=== PATIENT | male | born 1990 | race Caucasian/White ===

== ENCOUNTER → 2020-04-13 13:09 | Outpatient (BNVA) | payer OTHER, SELFPAY | PROVIDERS: PCP Family Medicine; Visit Provider Nurse Practitioner Gerontology ==

== ENCOUNTER 2020-04-16 13:53 | Emergency (ER) | payer OTHER, SELFPAY ==
[2020-04-16 14:01] VITALS: BP 113/74; PULSE 84; RESP 18; TEMP 36.6; O2SAT 98; BMI 23.3
[2020-04-16 14:08] LABS: Glucose, Whole Blood > 600 mg/dL (60-115)
--- NOTE | 2020-04-16 14:10 | ECG_ITS ---
Test Reason : WEAKNESS Blood Pressure : / mmHG Vent. Rate : 069 BPM Atrial Rate : 069 BPM P-R Int : 154 ms QRS Dur : 090 ms QT Int : 394 ms P-R-T Axes : 047 065 038 degrees QTc Int : 422 ms Normal sinus rhythm Minimal voltage criteria for LVH, may be normal variant Borderline ECG When compared with ECG of 26-NOV-2017 12:32, No significant change was found Referred By: Kimi Collier Electronically Signed By:Baldev Morales
--- NOTE | 2020-04-16 14:11 | XR_ITS ---
EXAMINATION: XR CHEST CLINICAL INFORMATION: Weakness COMPARISON: 03/08/2018 TECHNIQUE: 2 views of the chest were obtained. FINDINGS: Normal cardiomediastinal silhouette. Adequate expansion of lungs. No focal consolidation. No pleural effusion or pneumothorax. No acute osseous abnormality. XR/XR chest 2V IMPRESSION: No acute disease within the chest.
--- NOTE | 2020-04-16 14:17 | PC.NURSE ---
pt reports thirst and weakness. steady on feet. denies headache/blurred vision. skin pwd aware of plan of care. pt has hard time understanding insurance glitches. no insulin since yesterday.
--- NOTE | 2020-04-16 14:18 | ED.GENADULT ---
HPI - General Adult General Chief complaint: General Medical Stated complaint: high blood sugar Time Seen by Provider: 04/16/20 14:10 Source: patient Mode of arrival: ambulatory Limitations: no limitations History of Present Illness HPI narrative: 30 yo male with past medical h/o IDDM here with hyperglycemia. Patient tells me he went to [employer] [facility] his insulin yesterday and he used his last dose in the morning and was told his insurance was . Therefore, he tells me he did not have money to [employer] maker the new vial and sensors. Today has malaise, nausea. No abdominal pain, vomiting, fevers, chills, cough, shortness of breath. He tells me prior to using his last dose of insulin he felt well and he has not felt sick lately. Onset (ago): day(s) Related Data Previous Rx's Medication Instructions Recorded blood sugar diagnostic #125 ea 04/13/20 flash glucose sensor 1 ea TOPICAL Q2W #2 ea 04/13/20 insulin glargine 100 unit/mL (3 24 unit SUBCUT QPM #15 ml 04/13/20 mL) subcutaneous pen insulin lispro 100 unit/mL 6 - 12 unit SUBCUT QID #15 ml 04/13/20 subcutaneous pen Allergies Allergy/AdvReac Type Severity Reaction Status Date / Time No Known Allergies Allergy Unverified 04/13/20 14:09 [No Known Allergies*] Review of Systems Review of Systems: Yes all other systems are reviewed and are negative Constitutional: Constitutional: Reports no additional constitutional complaints, Denies body ache(s), Denies chills, Denies fever(s), Denies headache(s), Reports malaise and Denies weakness Eyes: Eyes: Reports no additional eye complaints and Denies change in vision ENT: Reports system reviewed and no additional complaints, except as documented, Denies dizziness, Denies headache(s), Denies nasal congestion, Denies nasal discharge and Denies neck pain Cardiovascular: Cardiovascular: Reports no additional cardiovascular complaints, Denies chest pain, Denies leg edema and Denies dyspnea Respiratory: Respiratory: Reports no additional respiratory complaints, Denies cough and Denies dyspnea Gastrointestinal: Gastrointestinal: Reports no additional gastrointestinal complaints, Denies abdominal pain, Denies diarrhea, Reports nausea and Denies vomiting Genitourinary: Genitourinary: Denies urinary incontinence Musculoskeletal: Musculoskeletal: Reports no additional musculoskeletal complaints, Denies back pain, Denies arthralgias, Denies joint swelling, Denies neck pain, Denies numbness and Denies tingling Integumentary/Breasts: Skin/Breast: Reports system reviewed and no additional complaints, except as docu and Denies rash Neurologic: Reports system reviewed and no additional complaints, except as documented, Denies Abnormal speech present, Denies dizziness, Denies headache(s), Denies numbness, Denies tingling and Denies weakness PMFSH Past Medical History Attestation statement: The following information was validated with the patient. Source: old records reviewed and nursing notes reviewed Medical History Dental decay Diabetes mellitus type 1, uncontrolled Hyperlipidemia LDL goal <100 Family History Family History Maternal Grandmother Diabetes, type I Social History Social History Household Members: None Alcohol intake: never Smoking Status: Current some day smoker Smoked in Last 30 Days: No Use of substances other than those prescribed or required for medical reasons: No Advance Directives: No Advance Directives Information Provided: No Physical Exam Vital Signs: Vital Signs: Last Vital Signs Temp 98 F 04/16/20 14:01 Pulse 82 04/16/20 18:00 Resp 18 04/16/20 18:00 BP 133/84 04/16/20 18:00 Pulse Ox 100 04/16/20 18:00 Body Mass Index 23.3 Const: General: cooperative, healthy appearing, comfortable and no acute distress Orientation/consciousness: patient oriented x3 Limitations: no limitations HENMT: Head: Yes normal to inspection Ears: hearing grossly normal bilaterally General nose exam: Normal external nose present Face and sinus: Yes normal facial exam Mouth: Normal oral and palatal mucosa present Throat: Yes posterior oropharynx normal Eyes: General: appearance normal, both eyes and all related structures Pupils: Equal, round and reactive pupils present Neck: Neck: Yes normal visual inspection Chest: Chest palpation & inspection: normal inspection of the chest Resp: Effort & Inspection: normal respiratory effort Auscultation: clear to auscultation bilaterally Cardio: Rate: regular rate Rhythm: regular rhythm Peripheral pulses: Peripheral pulses 2+ throughout GI: Inspection: Yes normal to inspection Palpation (GI): Soft to palpation and nontender Auscultation: normal bowel sounds Back/Spine/Pelvis: Thoracic/Lumbar Spine: thoracic and lumbar spine normal to inspection Skin: General skin exam: no rashes or lesions noted Neuro: General: patient oriented x3, no focal motor deficits and normal sensation to monofilament Cranial nerves: Yes Equal, round and reactive pupils present Cognition (Neuro): normal cognition Speech: No Abnormal speech present Gait exam (Neuro): Normal gait present Motor exam (neuro): 5/5 motor strength present throughout Extrem: General: Yes normal to inspection Course Course Course Narrative: 30 yo male with glucometer reading high today after running out of insulin yesterday. Will need labs including acetone, VBG, UA, EKG. Give NSB. Hold on insulin until labs returned. 163-Labs show BG 948 with no gap or acidosis. Corrected sodium 142. Renal function at baseline. Acetone negative. VBG more c/o with respiratory acidosis which is unexpected. D/w with Dr Hall who recommended 10 units iv insulin, gtt at 10 units/hr, NSB x2 then LR at 250ml/hr. Re-check BMP and VBG at 1900. Pt and nursing aware of plan of care. 2029-Called and spoke to pharmacist at [facility]. Filled lispro and lantus over the phone. Insurance is active per pharmacist, confirmed with registration. Patient tells me he is able to go there tonight to pick this up and has all other additional supplies at home that he needs. Pending repeat labs. 2044-Repeat labs look much improved with a BG of 199 now. Repeat VBG unfortunately was not re-drawn and patient declined to have this re-drawn. He is alert and oriented x3, stable vital signs. mildly hypercarbic on initial VBG which may be secondary to tox use. Patient tox screen positive for cocaine and marijuana. Instructed patient to discontinue use of this and explained why. Reviewed worrisome signs/symptoms with patient and when to return to ED. Comfortable with discharge home. Medical Decision Making Medical Records Medical records reviewed: Yes I reviewed the patient's medical records. Lab Data Lab results reviewed: Yes I reviewed the patient's lab results. Result diagrams: 04/16/20 14:23 04/16/20 20:20 Labs: Lab Results 04/16/20 04/16/20 04/16/20 Range/Units 14:04 14:23 14:23 WBC 7.6 (4.8-10.8) X10*3/uL RBC 5.64 (4.60-5.80) X10*6/uL Hgb 17.0 (14.0-18.0) g/dl Hct 52.2 H (42-52) % MCV 92.6 (80-98) fL MCH 30.1 (27.0-33.0) pg MCHC 32.6 (31.0-36.0) g/dl RDW 12.4 (11.0-16.0) % Plt Count 309 (160-400) X10*3/uL MPV 12.0 (9.4-12.4) fL Immature Gran % (Auto) 0.4 (0.0-0.4) % Neut % (Auto) 77.9 H (45-73) % Lymph % (Auto) 15.8 L (20-40) % Meagher % (Auto) 4.6 (2-11) % Eos % (Auto) 0.5 (0-4) % Baso % (Auto) 0.8 (0-2) % Lymph # (Auto) 1.2 (1.2-4.9) X10*3/uL Meagher # (Auto) 0.4 (0.1-1.2) X10*3/uL Eos # (Auto) 0.0 (0.0-0.4) X10*3/uL Baso # (Auto) 0.1 (0.0-0.2) X10*3/uL Abs Immat Gran (auto) 0.03 (0.00-0.03) X10*3/uL Absolute Neuts (auto) 5.9 (2.0-8.3) X10*3/uL Absolute Nucleated RBC 0.000 (0.0-0.012) X10*3/uL Nucleated RBC % (auto) 0.0 (0.0-0.2) /100WBC VBG pH (7.32-7.43) VBG pCO2 mmHg VBG pO2 mmHg VBG HCO3 mmol/L VBG O2 Saturation % VBG Base Excess mmol/L Sodium 128 L (135-145) mmol/L Potassium 4.8 (3.3-5.1) mmol/l Chloride 84 L (96-108) mmol/L Carbon Dioxide 27 (22-29) mmol/L Anion Gap 22 H (12-20) BUN 11 (9-16) mg/dL Creatinine 1.80 H (0.5-1.4) mg/dL Estim Creat Clear Calc 52.6 Estimated GFR 45 POC Glucose > 600 H* (60-115) mg/dL Random Glucose 948 H* (60-115) mg/dL Calcium 10.4 H (8.4-10.2) mg/dL Magnesium 2.3 (1.6-2.6) mg/dL Total Bilirubin 1.0 (0.0-1.0) mg/dL Direct Bilirubin 0.3 (0.0-0.5) mg/dL AST 16 (5-37) U/L ALT 29 (0-40) U/L Alkaline Phosphatase 153 H (39-117) U/L Troponin I High Sens (<3.5-35.0) ng/L Total Protein 8.5 H (6.5-8.0) g/dL Albumin 4.9 (3.5-5.0) g/dL Urine Color Urine Appearance Urine pH (5.0-8.0) Ur Specific [place] (1.005-1.025) Urine Protein (NEG-TRACE) MG/DL Urine Glucose (UA) (NEG) MG/DL Urine Ketones (NEG) MG/DL Urine Blood (NEG) Urine Nitrite (NEG) Ur Leukocyte Esterase (NEG) Urine RBC (0) /HPF Urine WBC (0-4) /HPF Ur Squamous Epith Cells /LPF Urine Bacteria /LPF Urine Yeast /HPF Urine Opiates Screen (Not Detect) Ur Barbiturates Screen (Not Detect) Ur Phencyclidine Scrn (Not Detect) Ur Amphetamines Screen (Not Detect) U Benzodiazepines Scrn (Not Detect) Urine Cocaine Screen (Not Detect) U Marijuana (THC) Screen (Not Detect) Acetone, Qual Negative (Negative) COVID-19 (DORINA) (Negative) COVID-19 Clin Com 04/16/20 04/16/20 04/16/20 Range/Units 14:23 14:23 16:10 WBC (4.8-10.8) X10*3/uL RBC (4.60-5.80) X10*6/uL Hgb (14.0-18.0) g/dl Hct (42-52) % MCV (80-98) fL MCH (27.0-33.0) pg MCHC (31.0-36.0) g/dl RDW (11.0-16.0) % Plt Count (160-400) X10*3/uL MPV (9.4-12.4) fL Immature Gran % (Auto) (0.0-0.4) % Neut % (Auto) (45-73) % Lymph % (Auto) (20-40) % Meagher % (Auto) (2-11) % Eos % (Auto) (0-4) % Baso % (Auto) (0-2) % Lymph # (Auto) (1.2-4.9) X10*3/uL Meagher # (Auto) (0.1-1.2) X10*3/uL Eos # (Auto) (0.0-0.4) X10*3/uL Baso # (Auto) (0.0-0.2) X10*3/uL Abs Immat Gran (auto) (0.00-0.03) X10*3/uL Absolute Neuts (auto) (2.0-8.3) X10*3/uL Absolute Nucleated RBC (0.0-0.012) X10*3/uL Nucleated RBC % (auto) (0.0-0.2) /100WBC VBG pH 7.26 L (7.32-7.43) VBG pCO2 70 mmHg VBG pO2 34 mmHg VBG HCO3 32 mmol/L VBG O2 Saturation 51.0 % VBG Base Excess 2.3 mmol/L Sodium (135-145) mmol/L Potassium (3.3-5.1) mmol/l Chloride (96-108) mmol/L Carbon Dioxide (22-29) mmol/L Anion Gap (12-20) BUN (9-16) mg/dL Creatinine (0.5-1.4) mg/dL Estim Creat Clear Calc Estimated GFR POC Glucose (60-115) mg/dL Random Glucose (60-115) mg/dL Calcium (8.4-10.2) mg/dL Magnesium (1.6-2.6) mg/dL Total Bilirubin (0.0-1.0) mg/dL Direct Bilirubin (0.0-0.5) mg/dL AST (5-37) U/L ALT (0-40) U/L Alkaline Phosphatase (39-117) U/L Troponin I High Sens < 3.5 (<3.5-35.0) ng/L Total Protein (6.5-8.0) g/dL Albumin (3.5-5.0) g/dL Urine Color YELLOW Urine Appearance CLEAR Urine pH 5.5 (5.0-8.0) Ur Specific [place] <= 1.005 (1.005-1.025) Urine Protein NEG (NEG-TRACE) MG/DL Urine Glucose (UA) >=1000 H (NEG) MG/DL Urine Ketones 5 (NEG) MG/DL Urine Blood NEG (NEG) Urine Nitrite NEG (NEG) Ur Leukocyte Esterase NEG (NEG) Urine RBC 0-2 (0) /HPF Urine WBC 0-2 (0-4) /HPF Ur Squamous Epith Cells TRACE /LPF Urine Bacteria TRACE /LPF Urine Yeast TRACE /HPF Urine Opiates Screen (Not Detect) Ur Barbiturates Screen (Not Detect) Ur Phencyclidine Scrn (Not Detect) Ur Amphetamines Screen (Not Detect) U Benzodiazepines Scrn (Not Detect) Urine Cocaine Screen (Not Detect) U Marijuana (THC) Screen (Not Detect) Acetone, Qual (Negative) COVID-19 (DORINA) (Negative) COVID-19 Clin Com 04/16/20 04/16/20 04/16/20 Range/Units 16:15 17:54 18:21 WBC (4.8-10.8) X10*3/uL RBC (4.60-5.80) X10*6/uL Hgb (14.0-18.0) g/dl Hct (42-52) % MCV (80-98) fL MCH (27.0-33.0) pg MCHC (31.0-36.0) g/dl RDW (11.0-16.0) % Plt Count (160-400) X10*3/uL MPV (9.4-12.4) fL Immature Gran % (Auto) (0.0-0.4) % Neut % (Auto) (45-73) % Lymph % (Auto) (20-40) % Meagher % (Auto) (2-11) % Eos % (Auto) (0-4) % Baso % (Auto) (0-2) % Lymph # (Auto) (1.2-4.9) X10*3/uL [place] # (Auto) (0.1-1.2) X10*3/uL Eos # (Auto) (0.0-0.4) X10*3/uL Baso # (Auto) (0.0-0.2) X10*3/uL Abs Immat Gran (auto) (0.00-0.03) X10*3/uL Absolute Neuts (auto) (2.0-8.3) X10*3/uL Absolute Nucleated RBC (0.0-0.012) X10*3/uL Nucleated RBC % (auto) (0.0-0.2) /100WBC VBG pH (7.32-7.43) VBG pCO2 mmHg VBG pO2 mmHg VBG HCO3 mmol/L VBG O2 Saturation % VBG Base Excess mmol/L Sodium (135-145) mmol/L Potassium (3.3-5.1) mmol/l Chloride (96-108) mmol/L Carbon Dioxide (22-29) mmol/L Anion Gap (12-20) BUN (9-16) mg/dL Creatinine (0.5-1.4) mg/dL Estim Creat Clear Calc Estimated GFR POC Glucose 352 H* 287 H (60-115) mg/dL Random Glucose (60-115) mg/dL Calcium (8.4-10.2) mg/dL Magnesium (1.6-2.6) mg/dL Total Bilirubin (0.0-1.0) mg/dL Direct Bilirubin (0.0-0.5) mg/dL AST (5-37) U/L ALT (0-40) U/L Alkaline Phosphatase (39-117) U/L Troponin I High Sens (<3.5-35.0) ng/L Total Protein (6.5-8.0) g/dL Albumin (3.5-5.0) g/dL Urine Color Urine Appearance Urine pH (5.0-8.0) Ur Specific [place] (1.005-1.025) Urine Protein (NEG-TRACE) MG/DL Urine Glucose (UA) (NEG) MG/DL Urine Ketones (NEG) MG/DL Urine Blood (NEG) Urine Nitrite (NEG) Ur Leukocyte Esterase (NEG) Urine RBC (0) /HPF Urine WBC (0-4) /HPF Ur Squamous Epith Cells /LPF Urine Bacteria /LPF Urine Yeast /HPF Urine Opiates Screen Not Detected (Not Detect) Ur Barbiturates Screen Not Detected (Not Detect) Ur Phencyclidine Scrn Not Detected (Not Detect) Ur Amphetamines Screen Not Detected (Not Detect) U Benzodiazepines Scrn Not Detected (Not Detect) Urine Cocaine Screen POSITIVE H (Not Detect) U Marijuana (THC) Screen POSITIVE H (Not Detect) Acetone, Qual (Negative) COVID-19 (DORINA) (Negative) COVID-19 Clin Com 04/16/20 04/16/20 04/16/20 Range/Units 19:42 19:42 20:20 WBC (4.8-10.8) X10*3/uL RBC (4.60-5.80) X10*6/uL Hgb (14.0-18.0) g/dl Hct (42-52) % MCV (80-98) fL MCH (27.0-33.0) pg MCHC (31.0-36.0) g/dl RDW (11.0-16.0) % Plt Count (160-400) X10*3/uL MPV (9.4-12.4) fL Immature Gran % (Auto) (0.0-0.4) % Neut % (Auto) (45-73) % Lymph % (Auto) (20-40) % Meagher % (Auto) (2-11) % Eos % (Auto) (0-4) % Baso % (Auto) (0-2) % Lymph # (Auto) (1.2-4.9) X10*3/uL [place] # (Auto) (0.1-1.2) X10*3/uL Eos # (Auto) (0.0-0.4) X10*3/uL Baso # (Auto) (0.0-0.2) X10*3/uL Abs Immat Gran (auto) (0.00-0.03) X10*3/uL Absolute Neuts (auto) (2.0-8.3) X10*3/uL Absolute Nucleated RBC (0.0-0.012) X10*3/uL Nucleated RBC % (auto) (0.0-0.2) /100WBC VBG pH (7.32-7.43) VBG pCO2 mmHg VBG pO2 mmHg VBG HCO3 mmol/L VBG O2 Saturation % VBG Base Excess mmol/L Sodium Cancelled 141 (135-145) mmol/L Potassium Cancelled 4.1 (3.3-5.1) mmol/l Chloride Cancelled 100 (96-108) mmol/L Carbon Dioxide Cancelled 29 (22-29) mmol/L Anion Gap Cancelled 16 (12-20) BUN Cancelled 9 (9-16) mg/dL Creatinine Cancelled 1.02 (0.5-1.4) mg/dL Estim Creat Clear Calc Cancelled 92.9 Estimated GFR Cancelled > 60 POC Glucose (60-115) mg/dL Random Glucose Cancelled 199 H D (60-115) mg/dL Calcium Cancelled 9.5 D (8.4-10.2) mg/dL Magnesium (1.6-2.6) mg/dL Total Bilirubin (0.0-1.0) mg/dL Direct Bilirubin (0.0-0.5) mg/dL AST (5-37) U/L ALT (0-40) U/L Alkaline Phosphatase (39-117) U/L Troponin I High Sens (<3.5-35.0) ng/L Total Protein (6.5-8.0) g/dL Albumin (3.5-5.0) g/dL Urine Color Urine Appearance Urine pH (5.0-8.0) Ur Specific [place] (1.005-1.025) Urine Protein (NEG-TRACE) MG/DL Urine Glucose (UA) (NEG) MG/DL Urine Ketones (NEG) MG/DL Urine Blood (NEG) Urine Nitrite (NEG) Ur Leukocyte Esterase (NEG) Urine RBC (0) /HPF Urine WBC (0-4) /HPF Ur Squamous Epith Cells /LPF Urine Bacteria /LPF Urine Yeast /HPF Urine Opiates Screen (Not Detect) Ur Barbiturates Screen (Not Detect) Ur Phencyclidine Scrn (Not Detect) Ur Amphetamines Screen (Not Detect) U Benzodiazepines Scrn (Not Detect) Urine Cocaine Screen (Not Detect) U Marijuana (THC) Screen (Not Detect) Acetone, Qual (Negative) COVID-19 (DORINA) Negative (Negative) COVID-19 Clin Com See Note Imaging Data Chest x-ray: Attestation: I personally reviewed and interpreted this imaging study as follows: Radiologist's impression: [address] [id number] ReportSigned Patient: Keira WeinerMR#: [id number]: [id number]:[id number]/Sex: 30 / MADM Date: 04/16/20Loc: EDAttending Dr: Ordering Physician: GINGER SR NP Date of Service: 04/16/20 Procedure(s): XR chest 2V Accession Number(s): [id number] cc: GINGER SR NP~ EXAMINATION: XR CHEST CLINICAL INFORMATION: Weakness COMPARISON: 03/08/2018 TECHNIQUE: 2 views of the chest were obtained. FINDINGS: Normal cardiomediastinal silhouette. Adequate expansion of lungs. No focal consolidation. No pleural effusion or pneumothorax. No acute osseous abnormality. XR/XR chest 2V IMPRESSION: No acute disease within the chest. ECG Data Attestation: I personally reviewed and interpreted this ECG as follows: Interpretation: NSR with rate 69, normal pr, normal qrs, normal wt, t wave inversions v1, v3 Discharge Plan Discharge Clinical Impression: Diabetes mellitus type 1, uncontrolled Qualifiers: Glycemic state: with hyperglycemia Qualified Code(s): E10.65 - Type 1 diabetes mellitus with hyperglycemia Patient Disposition: Home, Self-Care Instructions: Diabetes Type 1: Management (ED) Additional Instructions: I have called in your refills to [facility] [place] Prescriptions: No Action Lantus Solostar U-100 Insulin 100 unit/mL (3 mL) insulin pen 24 unit subcut QPM Qty: 15 RF: 0 insulin lispro [Humalog KwikPen Insulin] 100 unit/mL insulin pen 6 - 12 unit subcut QID Qty: 15 RF: 0 FreeStyle Eusebio 14 Day Sensor Kit 1 ea topical Q2W Qty: 2 RF: 11 (DME) FreeStyle Precision Kamran Strips Strip See Rx Instructions .ROUTE .MEDSUPPLY Qty: 125 RF: 6
[2020-04-16] MEDS: 0.9 % Sodium Chloride 1,000 ML 999 ML IV ×2 (14:24→16:41)
[2020-04-16 14:37] LABS: MANUAL DIFF FLAG NO
[2020-04-16 14:40] LABS: Basophils Absolute Auto 0.1 X10*3/uL (0.0-0.2); Basophils Percent Auto 0.8 % (0-2); Eosinophils Percent Auto 0.5 % (0-4); Hematocrit 52.2 % (42-52); Imm Gran Abs Auto 0.03 X10*3/uL (0.00-0.03); Imm Gran Pct Auto 0.4 % (0.0-0.4); Lymphocytes Absolute Auto 1.2 X10*3/uL (1.2-4.9); Lymphocytes Percent Auto 15.8 % (20-40); Mean Corpuscular HGB Conc 32.6 g/dl (31.0-36.0); Mean Corpuscular Hemoglobin 30.1 pg (27.0-33.0); Mean Corpuscular Volume 92.6 fL (80-98); Monocytes Absolute Auto 0.4 X10*3/uL (0.1-1.2); Monocytes Percent Auto 4.6 % (2-11); Neutrophils Absolute Auto 5.9 X10*3/uL (2.0-8.3); Neutrophils Percent Auto 77.9 % (45-73); Platelet Count 309 X10*3/uL (160-400); Red Blood Count 5.64 X10*6/uL (4.60-5.80); Red Cell Distribution Width 12.4 % (11.0-16.0); White Blood Count 7.6 X10*3/uL (4.8-10.8)
[2020-04-16 14:42] LABS: HCO3 VBG 32 mmol/L; PCO2 VBG 70 mmHg; PO2 VBG 34 mmHg; pH VBG 7.26 (7.32-7.43)
[2020-04-16 14:43] LABS: Base Excess VBG 2.3 mmol/L
[2020-04-16 15:15] LABS: Troponin-I High Sensitivity < 3.5 ng/L (<3.5-35.0)
[2020-04-16 16:10] VITALS: BP 123/86; PULSE 81; RESP 14; O2SAT 99
[2020-04-16 16:20] LABS: Alanine Aminotransferase 29 U/L (0-40); Albumin Level 4.9 g/dL (3.5-5.0); Alkaline Phosphatase 153 U/L (39-117); Anion Gap 22 (12-20); Aspartate Amino Transferase 16 U/L (5-37); Bilirubin Direct 0.3 mg/dL (0.0-0.5); Blood Urea Nitrogen 11 mg/dL (9-16); Calcium 10.4 mg/dL (8.4-10.2); Carbon Dioxide 27 mmol/L (22-29); Chloride 84 mmol/L (96-108); Creatinine Clr Calc Pharmacy 52.6; Estimated Glomerular Filt Rate 45; Glucose Random 948 mg/dL (60-115); Magnesium 2.3 mg/dL (1.6-2.6); Potassium 4.8 mmol/l (3.3-5.1); Sodium 128 mmol/L (135-145); Total Protein 8.5 g/dL (6.5-8.0)
[2020-04-16 16:22] LABS: Glucose Urine UA >=1000 MG/DL (NEG); Leukocyte Esterase Urine NEG (NEG); Nitrite Urine NEG (NEG); PH 5.5 (5.0-8.0); Specific Gravity - Urine <= 1.005 (1.005-1.025); Urine Blood NEG (NEG); Urine Ketones 5 MG/DL (NEG); Urine Protein NEG (NEG-TRACE)
[2020-04-16 16:40] LABS: Appearance Urine CLEAR; Bacteria Urine TRACE /LPF; Color Urine YELLOW; RBC Urine 0-2 /HPF (0); Squamous Epithelial Cell Urine TRACE /LPF; WBC Urine 0-2 /HPF (0-4)
[2020-04-16] MEDS: Insulin Regular, Human 100 UNIT/ML 3 ML VIAL 10 UNIT IVPUSH (16:41)
[2020-04-16] MEDS: Insulin Regular/NS 100 UNIT/100 ML PLAST..BAG 10 UNIT IVCONT (16:45)
[2020-04-16 17:03] VITALS: BP 151/90; PULSE 72; RESP 18; O2SAT 99
[2020-04-16 17:46] LABS: Acetone, serum QL Negative (Negative)
[2020-04-16 17:57] LABS: Glucose, Whole Blood 352 mg/dL (60-115)
[2020-04-16 18:00] VITALS: BP 133/84; PULSE 82; RESP 18; O2SAT 100
[2020-04-16 18:10] LABS: Amphetamine Screen Urine Not Detected (Not Detect); Barbiturates, Urine Not Detected (Not Detect); Benzodiazepines Screen Urine Not Detected (Not Detect); Cannabinoid Screen Urine POSITIVE (Not Detect); Cocaine Screen Urine POSITIVE (Not Detect); Opiate Screen Urine Not Detected (Not Detect); Phencyclidine Screen Urine Not Detected (Not Detect)
--- NOTE | 2020-04-16 18:10 | PC.NURSE ---
DENIES THIRST. FEELS BETTER. PT HAS DIFF THINKING THROUGH HOW TO MANAGE INSURANCE PROBLEMS. I THINK I'LL BORROW INSULIN FROM MY FATHER
[2020-04-16] MEDS: Lactated Ringers 1,000 ML 250 ML IVCONT (18:11)
[2020-04-16 18:25] LABS: Glucose, Whole Blood 287 mg/dL (60-115)
[2020-04-16 20:00] LABS: COVID-19 Test Negative (Negative)
[2020-04-16 20:41] LABS: Sodium 141 mmol/L (135-145)
[2020-04-16 20:42] LABS: Anion Gap 16 (12-20); Blood Urea Nitrogen 9 mg/dL (9-16); Calcium 9.5 mg/dL (8.4-10.2); Carbon Dioxide 29 mmol/L (22-29); Chloride 100 mmol/L (96-108); Creatinine Clr Calc Pharmacy 92.9; Estimated Glomerular Filt Rate > 60; Glucose Random 199 mg/dL (60-115); Potassium 4.1 mmol/l (3.3-5.1)
== END 2020-04-16 21:10 | disposition home or self-care (01) ==
PROVIDERS: Nurse Practitioner Family; Emergency Provider Internal Medicine
DX: E10.65 Type 1 diabetes mellitus with hyperglycemia (principal); Z79.899 Other long term (current) drug therapy; F17.200 Nicotine dependence, unspecified, uncomplicated; Z20.822 Contact with and (suspected) exposure to COVID-19; Z79.4 Long term (current) use of insulin; Z71.6 Tobacco abuse counseling
CPT/HCPCS: 36415; 71046; 80048; 80076; 80307; 81001; 82009; 82803; 82947; 83735; 84484; 85025; 87635; 93005; 96361; 96365; 96366; 96375; 99284

== ENCOUNTER → 2020-05-03 08:53 | Outpatient (BNVA) | payer OTHER, SELFPAY | PROVIDERS: Visit Provider Nurse Practitioner Gerontology ==

== ENCOUNTER 2020-06-01 12:26 | Outpatient (REF) | payer OTHER, SELFPAY ==
[2020-06-01 14:07] LABS: Estimated Average Glucose 303 mg/dL; Hemoglobin A1c % 12.2 %
[2020-06-01 14:26] LABS: Creatinine Urine 53.28 mg/dL; Microalbum/Creatinine Ratio Ur 13.1 ug/mg cr
[2020-06-01 14:33] LABS: Alanine Aminotransferase 16 U/L (0-40); Alkaline Phosphatase 107 U/L (39-117); Anion Gap 12 (12-20); Aspartate Amino Transferase 15 U/L (5-37); Bilirubin Total 0.5 mg/dL (0.0-1.0); Blood Urea Nitrogen 9 mg/dL (9-16); Calcium 9.3 mg/dL (8.4-10.2); Carbon Dioxide 27 mmol/L (22-29); Chloride 102 mmol/L (96-108); Cholesterol 227 mg/dL; Estimated Glomerular Filt Rate > 60; Glucose Fasting 371 mg/dL (60-99); HDL Cholesterol 71 mg/dL; LDL Cholesterol Calculated 134 mg/dl; Potassium 4.8 mmol/L (3.3-5.1); Sodium 136 mmol/L (135-145); Triglycerides 112 mg/dL
[2020-06-02 08:47] LABS: LDL Cholesterol Direct 134 mg/dL (<100)
== END 2020-06-01 12:27 | disposition home or self-care (01) ==
LOC: HO.10HDL 12:26
PROVIDERS: Visit Provider Nurse Practitioner Gerontology
DX: E10.65 Type 1 diabetes mellitus with hyperglycemia (principal)
CPT/HCPCS: 36415; 80053; 80061; 82043; 83036; 83721

== ENCOUNTER → 2020-06-06 11:25 | Outpatient (BNVA) | payer OTHER, SELFPAY | PROVIDERS: PCP Family Medicine; Visit Provider Nurse Practitioner Gerontology | DX: E10.65 Type 1 diabetes mellitus with hyperglycemia (principal); Z71.3 Dietary counseling and surveillance; Z79.4 Long term (current) use of insulin | CPT/HCPCS: 82947; 99212 ==

== ENCOUNTER → 2020-12-06 14:56 | Outpatient (BNVA) | payer OTHER, SELFPAY | PROVIDERS: PCP Physician Assistant; Visit Provider Nurse Practitioner Gerontology | DX: E10.65 Type 1 diabetes mellitus with hyperglycemia (principal); E78.5 Hyperlipidemia, unspecified; K02.9 Dental caries, unspecified; F14.11 Cocaine abuse, in remission; F10.21 Alcohol dependence, in remission; Z91.19 Patient's noncompliance with other medical treatment and regimen | CPT/HCPCS: 82947; 99212 ==

== ENCOUNTER 2021-05-15 23:20 | Emergency (ER) | payer OTHER, SELFPAY ==
[2021-05-15 23:36] VITALS: BP 117/72; PULSE 84; RESP 18; TEMP 36.8; O2SAT 98; O2SAT 99; BMI 20.2
--- NOTE | 2021-05-16 00:14 | ED.GENADULT ---
HPI - General Adult General Chief complaint: General Medical Stated complaint: Hyperglycemia Time Seen by Provider: 05/15/21 23:33 Source: patient Mode of arrival: EMS History of Present Illness HPI narrative: 31-year-old male brought in by EMS from work after he was noted to have fallen asleep while waiting for ride. Patient states that he woke up to find EMS surrounding him and he was informed that he ?had to take that ambulance to the hospital?. Currently he does not wish to be treated in NE former fashion stating that he just wants to go home and take his own insulin. He currently denies any fever, chills, nausea, vomiting, abdominal pain. Related Data Previous Rx's Medication Instructions Recorded blood sugar diagnostic (FreeStyle #125 ea 05/03/20 Precision Kamran Strips) insulin glargine 100 unit/mL (3 24 unit (0.24 mL) SUBCUT QPM #15 ml 05/03/20 mL) subcutaneous pen (Lantus Solostar U-100 Insulin) Humalog KwikPen Insulin 100 6 - 12 unit (0.06 - 0.12 mL) 11/15/20 unit/mL subcutaneous (insulin SUBCUT QID #15 ml NS lispro) flash glucose scanning reader #1 ea 11/15/20 (FreeStyle Eusebio 2 [place]) flash glucose sensor (FreeStyle #2 ea 11/15/20 Eusebio 2 Sensor) atorvastatin 20 mg tablet 20 mg PO BEDTIME #30 tab 12/06/20 glucagon 3 mg/actuation nasal 3 mg INTRANASAL ONCE 30 Days #2 ea 12/06/20 spray (Baqsimi) Allergies Allergy/AdvReac Type Severity Reaction Status Date / Time No Known Allergies Allergy Unverified 12/06/20 15:31 [No Known Allergies*] Review of Systems Review of Systems: Pertinent positives and negatives as stated in the HPI and 10 point review of systems is otherwise negative. [facility] Past Medical History Source: nursing notes reviewed Medical History Dental decay Diabetes mellitus type 1, uncontrolled Hyperlipidemia LDL goal <100 Noncompliance Surgical History No history of previous surgery Family History Family History Maternal Grandmother Diabetes, type I Social History Social History Household Members: None Alcohol intake: former Patient Tobacco Use Status: Current someday Tobacco user Substance Use Type: Crack/Cocaine and Marijuana Physical Exam ED Vital Signs: Vital Signs - 24 hr 05/15/21 23:36 Temperature 98.3 F Pulse Rate 84 Respiratory Rate 18 Blood Pressure 117/72 Pulse Oximetry 98 BMI result Body Mass Index 20.2 VITAL SIGNS: Reviewed. GENERAL: Well developed, well nourished, in no acute distress, smells like marijuana HEAD: Normocephalic/atraumatic, EYES: PERRLA, EOMI EARS: Ext canals without abnormality NOSE: Nares patent bilateral OROPHARYNX: no oral lesions noted, posterior pharynx clear LUNGS: Normal breath sounds, no tachypnea, no smell of acetone. No adventitious sounds or accessory muscle use. SpO2<98> CARDIOVASCULAR: Regular rate and rhythm without noted murmurs, no JVD or lower extremity edema. ABDOMEN: Soft, non-tender, non-distended with bowel sounds. MUSCULOSKELETAL: No tenderness, deformities, or effusions noted on gross inspection. EXTREMITIES: No cyanosis, clubbing or edema. SKIN: Inspection of the skin reveals no rashes NEUROLOGIC: Alert and oriented x 4. Strength and sensation to light touch were grossly intact x 4. Course Course Course Narrative: 31-year-old male with history and clinical presentation consistent with hyperglycemia without clinical evidence of DKA or HHS. He is currently refusing all medical intervention stating that he was ?tricked into coming into the hospital?. Despite extensive counseling on the risks and benefits to include and morbidity from increasing acid levels due to high sugars patient states that he understands with can happen but still wishes to go home and states that he is already called for his ride. He understands that he will be signing a document that outlines that he is leaving against medical advice. Discharge Plan Discharge Clinical Impression: Diabetes, Hyperglycemia Patient Disposition: Home, Self-Care Instructions: Diabetic Hyperglycemia (ED) Additional Instructions: 1. Please take all home medications as prescribed. 2. Do not hesitate to return to the emergency room should you feel worse and require medical intervention. Prescriptions: No Action insulin lispro [Humalog KwikPen Insulin] 100 unit/mL insulin pen 6 - 12 unit subcut QID Qty: 15 6RF (DME) FreeStyle Eusebio 2 [place] Misc See Rx Instructions .Route Qty: 1 0RF Rx Instructions: As directed (DME) FreeStyle Eusebio 2 Sensor Kit See Rx Instructions .Route Qty: 2 12RF Rx Instructions: As directed to test 4 times daily a nd prn Lantus Solostar U-100 Insulin 100 unit/mL (3 mL) insulin pen 24 unit subcut QPM Qty: 15 0RF (DME) FreeStyle Precision Kamran Strips Strip See Rx Instructions .ROUTE .MEDSUPPLY Qty: 125 6RF Rx Instructions: As directed 4x/day atorvastatin 20 mg tablet 20 mg PO BEDTIME Qty: 30 6RF Baqsimi 3 mg/actuation spray,non-aerosol 3 mg intranasal ONCE 30 Days Qty: 2 6RF Rx Instructions: [place] once for severe hypoglycemia when patient cannot self-treat with glucose. Afterwards turn on side. May repeat after 15 minutes if patient does not respond. Stand Alone Forms: Against Medical Advice
[2021-05-16 00:34] LABS: Glucose, Whole Blood 517 mg/dL (60-115)
== END 2021-05-16 00:38 | disposition home or self-care (01) ==
LOC: HO.ED 05-16 00:24
PROVIDERS: Emergency Provider Student in an Organized Health Care Education/Training Program
DX: E10.65 Type 1 diabetes mellitus with hyperglycemia (principal); E78.5 Hyperlipidemia, unspecified; F17.200 Nicotine dependence, unspecified, uncomplicated; F12.90 Cannabis use, unspecified, uncomplicated; Z79.4 Long term (current) use of insulin; Z79.02 Long term (current) use of antithrombotics/antiplatelets
CPT/HCPCS: 82947; 96360; 96361; 99283; 99284

== ENCOUNTER → 2021-09-19 14:41 | Outpatient (BNVA) | payer OTHER, SELFPAY | PROVIDERS: Visit Provider Nurse Practitioner Gerontology | DX: E10.65 Type 1 diabetes mellitus with hyperglycemia (principal); Z79.4 Long term (current) use of insulin | CPT/HCPCS: 82947; 83036; 96372; 99212; J1815 ==

== ENCOUNTER 2021-09-20 11:42 | Outpatient (REF) | payer OTHER, SELFPAY ==
[2021-09-20 13:48] LABS: Alanine Aminotransferase 27 U/L (0-40); Albumin Level 3.7 g/dL (3.5-5.0); Alkaline Phosphatase 91 U/L (39-117); Anion Gap 13 (12-20); Aspartate Amino Transferase 19 U/L (5-37); Bilirubin Total 0.2 mg/dL (0.0-1.0); Blood Urea Nitrogen 9 mg/dL (9-16); Calcium 9.3 mg/dL (8.4-10.2); Carbon Dioxide 26 mmol/L (22-29); Chloride 100 mmol/L (96-108); Cholesterol 183 mg/dL; Estimated Glomerular Filt Rate > 60; Glucose Fasting 555 mg/dL (60-99); HDL Cholesterol 61 mg/dL; LDL Cholesterol Calculated 95 mg/dl; Potassium 3.8 mmol/L (3.3-5.1); Sodium 135 mmol/L (135-145); Total Protein 6.1 g/dL (6.5-8.0); Triglycerides 135 mg/dL
[2021-09-20 14:13] LABS: Creatinine Urine 23.79 mg/dL; Microalbumin Urine < 5.0 mg/L
[2021-09-21 16:56] LABS: LDL Cholesterol Direct 95 mg/dL (<100)
== END 2021-09-20 11:43 | disposition home or self-care (01) ==
LOC: HO.LAB 11:42
PROVIDERS: Visit Provider Nurse Practitioner Gerontology
DX: E10.65 Type 1 diabetes mellitus with hyperglycemia (principal)
CPT/HCPCS: 36415; 80053; 80061; 82043; 83721

== ENCOUNTER → 2021-10-03 10:46 | Outpatient (BNVA) | payer OTHER, SELFPAY | PROVIDERS: Visit Provider Registered Nurse Diabetes Educator | DX: E10.65 Type 1 diabetes mellitus with hyperglycemia (principal) | CPT/HCPCS: 99211 ==

== ENCOUNTER → 2021-10-22 10:57 | Outpatient (BNVA) | payer OTHER, SELFPAY | PROVIDERS: Visit Provider Registered Nurse Diabetes Educator | DX: E10.65 Type 1 diabetes mellitus with hyperglycemia (principal) | CPT/HCPCS: 82947; 99211 ==

== ENCOUNTER → 2021-10-31 11:00 | Outpatient (BNVA) | payer OTHER, SELFPAY | PROVIDERS: Visit Provider Internal Medicine Endocrinology, Diabetes & Metabolism | DX: E10.65 Type 1 diabetes mellitus with hyperglycemia (principal) | CPT/HCPCS: 80053; 81001; 82009; 82803; 82947; 83036; 85025; 87635; 96361; 96374; 99212; 99284 ==

== ENCOUNTER 2021-10-31 12:06 | Emergency (ER) | payer OTHER, SELFPAY ==
[2021-10-31 12:13] VITALS: BP 125/68; PULSE 66; RESP 18; O2SAT 100; BMI 18.8
--- NOTE | 2021-10-31 12:15 | ED_ITS ---
HPI - General Adult General Chief complaint: General Medical Stated complaint: High Blood Sugar Time Seen by Provider: 10/31/21 12:15 Source: patient Mode of arrival: ambulatory Limitations: no limitations History of Present Illness HPI narrative: Patient type 1 diabetic on insulin missed his Lantus insulin 24 units last night and did not take his Humalog was not feeling good went to clinic checked the blood sugar was more the 600s patient sent here for further evaluation patient feels little nauseated and upper abdominal discomfort and weak has been here in the past with the same complaints noncompliant to medications. No fever no chills Related Data Previous Rx's Medication Instructions Recorded glucagon 3 mg/actuation nasal 3 mg intranasal ONCE unresponsive 12/06/20 spray (Baqsimi) hypoglycemia 30 days #2 ea pen needle, diabetic 32 gauge x #150 ea 09/05/21 (BD Blanca 2nd Gen Pen Needle) insulin lispro 100 unit/mL 6 - 12 unit (0.06 - 0.12 mL) 09/13/21 subcutaneous pen subcut QID #15 mL atorvastatin 20 mg tablet 20 mg PO BEDTIME #30 tabs 09/19/21 blood sugar diagnostic (FreeStyle #150 ea 09/19/21 Lite Strips) blood-glucose meter (FreeStyle #1 ea 09/19/21 Lite Meter kit) flash glucose scanning reader #1 ea 09/19/21 (FreeStyle Eusebio 2 [place]) flash glucose sensor (FreeStyle #2 ea 09/19/21 Eusebio 2 Sensor kit) lancets 28 gauge (FreeStyle #200 ea 09/19/21 Lancets) insulin glargine 100 unit/mL (3 24 unit (0.24 mL) subcut QPM #45 mL 10/31/21 mL) subcutaneous pen insulin glargine 100 unit/mL (3 24 unit (0.24 mL) subcut QPM #15 mL 10/31/21 mL) subcutaneous pen (Lantus Solostar U-100 Insulin) insulin lispro 100 unit/mL 6 - 12 unit (0.06 - 0.12 mL) 10/31/21 subcutaneous pen subcut TID #45 mL Allergies Allergy/AdvReac Type Severity Reaction Status Date / Time No Known Allergies Allergy Verified 10/31/21 11:07 [No Known Allergies*] Review of Systems Review of Systems: Yes all other systems are reviewed and are negative [facility] Past Medical History Medical History Dental decay Diabetes mellitus type 1, uncontrolled Hyperlipidemia LDL goal <100 Noncompliance Surgical History No history of previous surgery Family History Family History Maternal Grandmother Diabetes, type I Social History Social History Household Members: None Alcohol intake: former Patient Tobacco Use Status: Current someday Tobacco user Substance Use Type: Crack/Cocaine and Marijuana Advance Directives: No Advance Directives Information Provided: No Physical Exam ED Vital Signs: Vital Signs - 24 hr 10/31/21 12:13 10/31/21 13:18 10/31/21 14:44 Temperature Pulse Rate 66 69 89 Respiratory Rate 18 16 14 Blood Pressure 125/68 125/76 124/74 Pulse Oximetry 100 99 100 Oxygen Delivery Method Room Air Room Air Room Air 10/31/21 15:22 Temperature 98 F Pulse Rate 69 Respiratory Rate Blood Pressure 122/74 Pulse Oximetry 100 Oxygen Delivery Method Room Air BMI result Body Mass Index 18.8 Appearance: Alert. Oriented X3. No acute distress. ENT: Pharynx normal. Oral Mucosa moist Neck: Normal inspection. Neck supple. CVS: Normal heart rate and rhythm. Pulses normal. Respiratory: No respiratory distress. Equal air entry bilateral, no wheezing/rales/rhonchi Abdomen: Soft and nontender. Bowel sounds are present, no mass palpable, no CVA tenderness Skin: Skin warm and dry. Normal skin color. Normal skin turgor. Extremities: No lower extremity edema. No calf tenderness Neuro: Oriented X 3. No motor deficit. Medical Decision Making MDM Narrative Medical decision making narrative: 15:00 Patient nonketotic hyperglycemia improved after IV hydration and insulin will discharge patient home advised to continue take his insulin on time Lab Data Lab results reviewed: Yes I reviewed the patient's lab results. Result diagrams: 10/31/21 13:11 10/31/21 14:11 Labs: Lab Results 10/31/21 10/31/21 10/31/21 Range/Units 12:23 12:25 12:57 WBC (4.8-10.8) X10*3/uL RBC (4.60-5.80) X10*6/uL Hgb (14.0-18.0) g/dl Hct (42.0-52.0) % MCV (80.0-98.0) fL MCH (27.0-33.0) pg MCHC (31.0-36.0) g/dl RDW (11.0-16.0) % Plt Count (160-400) X10*3/uL MPV (9.4-12.4) fL Immature Gran % (Auto) (0.0-0.4) % Neut % (Auto) (45-73) % Lymph % (Auto) (20-40) % [place] % (Auto) (2-11) % Eos % (Auto) (0-4) % Baso % (Auto) (0-2) % Lymph # (Auto) (1.2-4.9) X10*3/uL [place] # (Auto) (0.1-1.2) X10*3/uL Eos # (Auto) (0.0-0.4) X10*3/uL Baso # (Auto) (0.0-0.2) X10*3/uL Abs Immat Gran (auto) (0.00-0.03) X10*3/uL Absolute Neuts (auto) (2.0-8.3) x10*3/uL Absolute Nucleated RBC (0.0-0.012) X10*3/uL Nucleated RBC % (auto) (0.0-0.2) /100WBC O2 Saturation % ABG pH at Pt Temp (7.35-7.45) ABG pCO2 at Pt Temp (32-45) mmHg ABG pO2 at Pt Temp (83-108) mmHg ABG HCO3 (22-26) mmol/L ABG Base Excess (Actual) mmol/L Sodium (135-145) mmol/L Potassium (3.3-5.1) mmol/L Chloride (96-108) mmol/L Carbon Dioxide (22-29) mmol/L Anion Gap (12-20) BUN (9-16) mg/dL Creatinine (0.5-1.4) mg/dL Estim Creat Clear Calc Estimated GFR POC Glucose > 600 H* > 600 H* (60-115) mg/dL Random Glucose (60-115) mg/dL Calcium (8.4-10.2) mg/dL Total Bilirubin (0.0-1.0) mg/dL AST (5-37) U/L ALT (0-40) U/L Alkaline Phosphatase (39-117) U/L Total Protein (6.5-8.0) g/dL Albumin (3.5-5.0) g/dL Urine Color Urine Appearance Urine pH (5.0-8.0) Ur Specific [place] (1.005-1.025) Urine Protein (NEG-TRACE) MG/DL Urine Glucose (UA) (NEG) MG/DL Urine Ketones (NEG) MG/DL Urine Blood (NEG) Urine Nitrite (NEG) Ur Leukocyte Esterase (NEG) Urine RBC (0) /HPF Urine WBC (0-4) /HPF Ur Squamous Epith Cells /LPF Urine Bacteria /LPF Urine Yeast /HPF Acetone, Qual (Negative) COVID-19 (DORINA) Negative (Negative) COVID-19 Clin Com See Note 10/31/21 10/31/21 10/31/21 Range/Units 12:57 13:11 13:18 WBC 5.3 (4.8-10.8) X10*3/uL RBC 4.91 (4.60-5.80) X10*6/uL Hgb 15.0 (14.0-18.0) g/dl Hct 44.0 (42.0-52.0) % MCV 89.6 (80.0-98.0) fL MCH 30.5 (27.0-33.0) pg MCHC 34.1 (31.0-36.0) g/dl RDW 12.0 (11.0-16.0) % Plt Count 234 (160-400) X10*3/uL MPV 11.8 (9.4-12.4) fL Immature Gran % (Auto) 0.4 (0.0-0.4) % Neut % (Auto) 68.4 (45-73) % Lymph % (Auto) 22.3 (20-40) % [place] % (Auto) 6.2 (2-11) % Eos % (Auto) 1.9 (0-4) % Baso % (Auto) 0.8 (0-2) % Lymph # (Auto) 1.2 (1.2-4.9) X10*3/uL [place] # (Auto) 0.3 (0.1-1.2) X10*3/uL Eos # (Auto) 0.1 (0.0-0.4) X10*3/uL Baso # (Auto) 0.0 (0.0-0.2) X10*3/uL Abs Immat Gran (auto) 0.02 (0.00-0.03) X10*3/uL Absolute Neuts (auto) 3.6 (2.0-8.3) x10*3/uL Absolute Nucleated RBC 0.000 (0.0-0.012) X10*3/uL Nucleated RBC % (auto) 0.0 (0.0-0.2) /100WBC O2 Saturation 80.0 % ABG pH at Pt Temp 7.33 L (7.35-7.45) ABG pCO2 at Pt Temp 53 H (32-45) mmHg ABG pO2 at Pt Temp 54 L (83-108) mmHg ABG HCO3 28 H (22-26) mmol/L ABG Base Excess (Actual) 1.5 mmol/L Sodium (135-145) mmol/L Potassium (3.3-5.1) mmol/L Chloride (96-108) mmol/L Carbon Dioxide (22-29) mmol/L Anion Gap (12-20) BUN (9-16) mg/dL Creatinine (0.5-1.4) mg/dL Estim Creat Clear Calc Estimated GFR POC Glucose (60-115) mg/dL Random Glucose (60-115) mg/dL Calcium (8.4-10.2) mg/dL Total Bilirubin (0.0-1.0) mg/dL AST (5-37) U/L ALT (0-40) U/L Alkaline Phosphatase (39-117) U/L Total Protein (6.5-8.0) g/dL Albumin (3.5-5.0) g/dL Urine Color COLORLESS Urine Appearance CLEAR Urine pH 7.5 (5.0-8.0) Ur Specific [place] <= 1.005 (1.005-1.025) Urine Protein NEG (NEG-TRACE) MG/DL Urine Glucose (UA) >=1000 H (NEG) MG/DL Urine Ketones NEG (NEG) MG/DL Urine Blood NEG (NEG) Urine Nitrite NEG (NEG) Ur Leukocyte Esterase NEG (NEG) Urine RBC 0 (0) /HPF Urine WBC 0-2 (0-4) /HPF Ur Squamous Epith Cells TRACE /LPF Urine Bacteria NONE /LPF Urine Yeast TRACE /HPF Acetone, Qual (Negative) COVID-19 (DORINA) (Negative) COVID-19 Clin Com 10/31/21 10/31/21 10/31/21 Range/Units 14:06 14:11 14:35 WBC (4.8-10.8) X10*3/uL RBC (4.60-5.80) X10*6/uL Hgb (14.0-18.0) g/dl Hct (42.0-52.0) % MCV (80.0-98.0) fL MCH (27.0-33.0) pg MCHC (31.0-36.0) g/dl RDW (11.0-16.0) % Plt Count (160-400) X10*3/uL MPV (9.4-12.4) fL Immature Gran % (Auto) (0.0-0.4) % Neut % (Auto) (45-73) % Lymph % (Auto) (20-40) % [place] % (Auto) (2-11) % Eos % (Auto) (0-4) % Baso % (Auto) (0-2) % Lymph # (Auto) (1.2-4.9) X10*3/uL [place] # (Auto) (0.1-1.2) X10*3/uL Eos # (Auto) (0.0-0.4) X10*3/uL Baso # (Auto) (0.0-0.2) X10*3/uL Abs Immat Gran (auto) (0.00-0.03) X10*3/uL Absolute Neuts (auto) (2.0-8.3) x10*3/uL Absolute Nucleated RBC (0.0-0.012) X10*3/uL Nucleated RBC % (auto) (0.0-0.2) /100WBC O2 Saturation % ABG pH at Pt Temp (7.35-7.45) ABG pCO2 at Pt Temp (32-45) mmHg ABG pO2 at Pt Temp (83-108) mmHg ABG HCO3 (22-26) mmol/L ABG Base Excess (Actual) mmol/L Sodium 136 (135-145) mmol/L Potassium 4.3 (3.3-5.1) mmol/L Chloride 100 (96-108) mmol/L Carbon Dioxide 29 (22-29) mmol/L Anion Gap 11 L (12-20) BUN 10 (9-16) mg/dL Creatinine 1.05 (0.5-1.4) mg/dL Estim Creat Clear Calc 74.5 Estimated GFR > 60 POC Glucose 506 H* 409 H* (60-115) mg/dL Random Glucose 475 H* (60-115) mg/dL Calcium 8.9 (8.4-10.2) mg/dL Total Bilirubin 0.3 (0.0-1.0) mg/dL AST 24 (5-37) U/L ALT 39 (0-40) U/L Alkaline Phosphatase 93 (39-117) U/L Total Protein 6.4 L (6.5-8.0) g/dL Albumin 3.7 (3.5-5.0) g/dL Urine Color Urine Appearance Urine pH (5.0-8.0) Ur Specific [place] (1.005-1.025) Urine Protein (NEG-TRACE) MG/DL Urine Glucose (UA) (NEG) MG/DL Urine Ketones (NEG) MG/DL Urine Blood (NEG) Urine Nitrite (NEG) Ur Leukocyte Esterase (NEG) Urine RBC (0) /HPF Urine WBC (0-4) /HPF Ur Squamous Epith Cells /LPF Urine Bacteria /LPF Urine Yeast /HPF Acetone, Qual Negative (Negative) COVID-19 (DORINA) (Negative) COVID-19 Clin Com 10/31/21 Range/Units 15:17 WBC (4.8-10.8) X10*3/uL RBC (4.60-5.80) X10*6/uL Hgb (14.0-18.0) g/dl Hct (42.0-52.0) % MCV (80.0-98.0) fL MCH (27.0-33.0) pg MCHC (31.0-36.0) g/dl RDW (11.0-16.0) % Plt Count (160-400) X10*3/uL MPV (9.4-12.4) fL Immature Gran % (Auto) (0.0-0.4) % Neut % (Auto) (45-73) % Lymph % (Auto) (20-40) % [place] % (Auto) (2-11) % Eos % (Auto) (0-4) % Baso % (Auto) (0-2) % Lymph # (Auto) (1.2-4.9) X10*3/uL [place] # (Auto) (0.1-1.2) X10*3/uL Eos # (Auto) (0.0-0.4) X10*3/uL Baso # (Auto) (0.0-0.2) X10*3/uL Abs Immat Gran (auto) (0.00-0.03) X10*3/uL Absolute Neuts (auto) (2.0-8.3) x10*3/uL Absolute Nucleated RBC (0.0-0.012) X10*3/uL Nucleated RBC % (auto) (0.0-0.2) /100WBC O2 Saturation % ABG pH at Pt Temp (7.35-7.45) ABG pCO2 at Pt Temp (32-45) mmHg ABG pO2 at Pt Temp (83-108) mmHg ABG HCO3 (22-26) mmol/L ABG Base Excess (Actual) mmol/L Sodium (135-145) mmol/L Potassium (3.3-5.1) mmol/L Chloride (96-108) mmol/L Carbon Dioxide (22-29) mmol/L Anion Gap (12-20) BUN (9-16) mg/dL Creatinine (0.5-1.4) mg/dL Estim Creat Clear Calc Estimated GFR POC Glucose 321 H (60-115) mg/dL Random Glucose (60-115) mg/dL Calcium (8.4-10.2) mg/dL Total Bilirubin (0.0-1.0) mg/dL AST (5-37) U/L ALT (0-40) U/L Alkaline Phosphatase (39-117) U/L Total Protein (6.5-8.0) g/dL Albumin (3.5-5.0) g/dL Urine Color Urine Appearance Urine pH (5.0-8.0) Ur Specific [place] (1.005-1.025) Urine Protein (NEG-TRACE) MG/DL Urine Glucose (UA) (NEG) MG/DL Urine Ketones (NEG) MG/DL Urine Blood (NEG) Urine Nitrite (NEG) Ur Leukocyte Esterase (NEG) Urine RBC (0) /HPF Urine WBC (0-4) /HPF Ur Squamous Epith Cells /LPF Urine Bacteria /LPF Urine Yeast /HPF Acetone, Qual (Negative) COVID-19 (DORINA) (Negative) COVID-19 Clin Com Critical Care Time Critical Care Time Critical Care Time: Yes Total Critical Care Time: 55 Attestation: I spent 55 minutes of critical care, with interventions, assessments, speaking to patient, consultants, and family. Discharge Plan Discharge Clinical Impression: Diabetes mellitus type 1, uncontrolled Patient Disposition: Home, Self-Care Instructions: Diabetic Hyperglycemia (ED) Additional Instructions: Drink plenty water Take insulin on time and follow-up with diabetic specialist and PCP Prescriptions: New insulin glargine 100 unit/mL (3 mL) insulin pen 24 unit subcut QPM Qty: 45 3RF insulin lispro 100 unit/mL insulin pen 6 - 12 unit subcut TID Qty: 45 3RF No Action (DME) pen needle, diabetic [BD Blanca 2nd Gen Pen Needle] 32 gauge x 5/32 needle See Rx Instructions .ROUTE .MEDSUPPLY Qty: 150 6RF Rx Instructions: As directed five times a day insulin lispro 100 unit/mL insulin pen 6 - 12 unit subcut QID Qty: 15 6RF Baqsimi 3 mg/actuation spray,non-aerosol 3 mg intranasal ONCE 30 Days Qty: 2 6RF Rx Instructions: [place] once for severe hypoglycemia when patient cannot self-treat with glucose. Afterwards turn on side. May repeat after 15 minutes if patient does not respond. insulin glargine [Lantus Solostar U-100 Insulin] 100 unit/mL (3 mL) insulin pen 24 unit subcut QPM Qty: 15 6RF (DME) FreeStyle Eusebio 2 Sensor Kit See Rx Instructions .Route Qty: 2 12RF Rx Instructions: As directed to test 4 times daily a nd prn atorvastatin 20 mg tablet 20 mg PO BEDTIME Qty: 30 6RF (DME) FreeStyle Eusebio 2 [place] Misc See Rx Instructions .Route Qty: 1 0RF Rx Instructions: As directed (DME) blood-glucose meter [FreeStyle Lite Meter] Kit See Rx Instructions .ROUTE .MEDSUPPLY Qty: 1 0RF Rx Instructions: As directed (DME) FreeStyle Lite Strips Strip See Rx Instructions .ROUTE .MEDSUPPLY Qty: 150 11RF Rx Instructions: As directed four times a day (DME) lancets [FreeStyle Lancets] 28 gauge misc See Rx Instructions .ROUTE .MEDSUPPLY Qty: 200 11RF Rx Instructions: 4 times a day Referrals: Audrey Colunga MD [Physician] - 1 week Martin Alexandre MD [Physician] - 1 week
[2021-10-31 12:30] LABS: Glucose, Whole Blood > 600 mg/dL (60-115)
[2021-10-31 12:30] LABS: Glucose, Whole Blood > 600 mg/dL (60-115)
[2021-10-31 13:09] LABS: Appearance Urine CLEAR; Glucose Urine UA >=1000 MG/DL (NEG); Leukocyte Esterase Urine NEG (NEG); Nitrite Urine NEG (NEG); PH 7.5 (5.0-8.0); Specific Gravity - Urine <= 1.005 (1.005-1.025); Urine Blood NEG (NEG); Urine Ketones NEG (NEG); Urine Protein NEG (NEG-TRACE)
[2021-10-31 13:10] LABS: Color Urine COLORLESS
[2021-10-31 13:18] VITALS: BP 125/76; PULSE 69; RESP 16; O2SAT 99
[2021-10-31 13:22] LABS: MANUAL DIFF FLAG NO
[2021-10-31] MEDS: 0.9 % Sodium Chloride 1,000 ML 999 ML IV ×2 (13:22)
[2021-10-31 13:23] LABS: Basophils Percent Auto 0.8 % (0-2); Eosinophils Absolute Auto 0.1 X10*3/uL (0.0-0.4); Eosinophils Percent Auto 1.9 % (0-4); Imm Gran Abs Auto 0.02 X10*3/uL (0.00-0.03); Imm Gran Pct Auto 0.4 % (0.0-0.4); Lymphocytes Absolute Auto 1.2 X10*3/uL (1.2-4.9); Lymphocytes Percent Auto 22.3 % (20-40); Mean Corpuscular HGB Conc 34.1 g/dl (31.0-36.0); Mean Corpuscular Hemoglobin 30.5 pg (27.0-33.0); Mean Corpuscular Volume 89.6 fL (80.0-98.0); Mean Platelet Volume 11.8 fL (9.4-12.4); Monocytes Absolute Auto 0.3 X10*3/uL (0.1-1.2); Monocytes Percent Auto 6.2 % (2-11); Neutrophils Absolute Auto 3.6 x10*3/uL (2.0-8.3); Neutrophils Percent Auto 68.4 % (45-73); Platelet Count 234 X10*3/uL (160-400); Red Blood Count 4.91 X10*6/uL (4.60-5.80); White Blood Count 5.3 X10*3/uL (4.8-10.8)
[2021-10-31 13:23] LABS: Squamous Epithelial Cell Urine TRACE /LPF
[2021-10-31 13:24] LABS: RBC Urine 0 /HPF (0); WBC Urine 0-2 /HPF (0-4)
[2021-10-31 13:24] LABS: ABG Base Excess 1.5 mmol/L; ABG HCO3 28 mmol/L (22-26); ABG pCO2 53 mmHg (32-45); ABG pH 7.33 (7.35-7.45); ABG pO2 54 mmHg (83-108)
[2021-10-31] MEDS: Insulin Regular, Human 100 UNIT/ML 3 ML VIAL 10 UNIT IVPUSH (13:24)
[2021-10-31 13:28] LABS: Venous Blood Gas Refer to POC result
[2021-10-31 13:30] LABS: COVID-19 Test Negative (Negative)
[2021-10-31 14:10] LABS: Glucose, Whole Blood 506 mg/dL (60-115)
[2021-10-31 14:24] LABS: Acetone, serum QL Negative (Negative)
[2021-10-31 14:39] LABS: Glucose, Whole Blood 409 mg/dL (60-115)
[2021-10-31 14:42] LABS: Alanine Aminotransferase 39 U/L (0-40); Albumin Level 3.7 g/dL (3.5-5.0); Alkaline Phosphatase 93 U/L (39-117); Anion Gap 11 (12-20); Aspartate Amino Transferase 24 U/L (5-37); Bilirubin Total 0.3 mg/dL (0.0-1.0); Blood Urea Nitrogen 10 mg/dL (9-16); Calcium 8.9 mg/dL (8.4-10.2); Carbon Dioxide 29 mmol/L (22-29); Chloride 100 mmol/L (96-108); Creatinine Clr Calc Pharmacy 74.5; Estimated Glomerular Filt Rate > 60; Glucose Random 475 mg/dL (60-115); Potassium 4.3 mmol/L (3.3-5.1); Sodium 136 mmol/L (135-145); Total Protein 6.4 g/dL (6.5-8.0)
[2021-10-31 14:44] VITALS: BP 124/74; PULSE 89; RESP 14; O2SAT 100
[2021-10-31 15:20] LABS: Glucose, Whole Blood 321 mg/dL (60-115)
[2021-10-31 15:22] VITALS: BP 122/74; PULSE 69; TEMP 36.6; O2SAT 100
[2021-10-31] MEDS: Insulin Glargine,Hum.rec.anlog 100 UNIT/ML 10 ML VIAL 20 UNIT SUBCUT (15:24)
[2021-10-31] MEDS: Insulin Lispro 100 UNIT/ML 3 ML VIAL 8 UNIT SUBCUT (15:24)
[2021-10-31 16:10] LABS: Glucose, Whole Blood 268 mg/dL (60-115)
== END 2021-10-31 16:30 | disposition home or self-care (01) ==
PROVIDERS: Emergency Provider Internal Medicine
DX: E10.65 Type 1 diabetes mellitus with hyperglycemia (principal); E78.5 Hyperlipidemia, unspecified; Z79.4 Long term (current) use of insulin; Z79.02 Long term (current) use of antithrombotics/antiplatelets; F17.200 Nicotine dependence, unspecified, uncomplicated
CPT/HCPCS: 80053; 81001; 82009; 82803; 82947; 83036; 85025; 87635; 96361; 96374; 99212; 99283; 99284

== ENCOUNTER → 2021-11-22 11:00 | Outpatient (BNVA) | payer OTHER, SELFPAY | PROVIDERS: Visit Provider Registered Nurse Diabetes Educator | DX: E10.65 Type 1 diabetes mellitus with hyperglycemia (principal); Z79.4 Long term (current) use of insulin | CPT/HCPCS: 99211 ==

== ENCOUNTER 2021-12-02 07:15 | Emergency (ER) | payer OTHER, SELFPAY ==
[2021-12-02 07:19] VITALS: BP 126/74; PULSE 68; O2SAT 99
[2021-12-02 07:41] VITALS: BP 132/85; PULSE 68; RESP 16; TEMP 37.1; O2SAT 100; BMI 18.8
== END 2021-12-02 08:25 | disposition left against medical advice (07) ==
PROVIDERS: Emergency Provider Emergency Medicine
DX: J34.89 Other specified disorders of nose and nasal sinuses (principal)
CPT/HCPCS: 99281

== ENCOUNTER 2021-12-17 11:53 | Emergency (ER) | payer OTHER, SELFPAY ==
[2021-12-17 14:48] VITALS: BP 134/91; PULSE 71; RESP 18; TEMP 36.9; O2SAT 98; BMI 18.8
[2021-12-17 15:12] LABS: MANUAL DIFF FLAG NO
[2021-12-17 15:18] LABS: Basophils Absolute Auto 0.1 X10*3/uL (0.0-0.2); Eosinophils Absolute Auto 0.1 X10*3/uL (0.0-0.4); Eosinophils Percent Auto 1.5 % (0-4); Hematocrit 48.8 % (42.0-52.0); Hemoglobin 16.1 g/dl (14.0-18.0); Imm Gran Abs Auto 0.03 X10*3/uL (0.00-0.03); Imm Gran Pct Auto 0.5 % (0.0-0.4); Lymphocytes Absolute Auto 2.1 X10*3/uL (1.2-4.9); Lymphocytes Percent Auto 34.3 % (20-40); Mean Corpuscular Hemoglobin 29.3 pg (27.0-33.0); Mean Corpuscular Volume 88.7 fL (80.0-98.0); Mean Platelet Volume 11.3 fL (9.4-12.4); Monocytes Absolute Auto 0.4 X10*3/uL (0.1-1.2); Monocytes Percent Auto 6.7 % (2-11); Neutrophils Absolute Auto 3.4 x10*3/uL (2.0-8.3); Platelet Count 283 X10*3/uL (160-400); Red Cell Distribution Width 11.9 % (11.0-16.0)
[2021-12-17 15:31] LABS: COVID-19 Test Negative (Negative); IDNOW Serial# 9DB6401D
[2021-12-17 15:34] LABS: Alanine Aminotransferase 29 U/L (0-40); Albumin Level 4.5 g/dL (3.5-5.0); Alkaline Phosphatase 113 U/L (39-117); Anion Gap 16 (12-20); Aspartate Amino Transferase 19 U/L (5-37); Bilirubin Total 0.4 mg/dL (0.0-1.0); Blood Urea Nitrogen 7 mg/dL (9-16); Carbon Dioxide 28 mmol/L (22-29); Chloride 96 mmol/L (96-108); Creatinine Clr Calc Pharmacy 76.7; Estimated Glomerular Filt Rate > 60; Glucose Random 392 mg/dL (60-115); Magnesium 2.1 mg/dL (1.6-2.6); Potassium 4.5 mmol/L (3.3-5.1); Sodium 135 mmol/L (135-145); Total Protein 7.6 g/dL (6.5-8.0)
[2021-12-17 15:37] LABS: Troponin-I High Sensitivity < 3.5 ng/L (<3.5-35.0)
== END 2021-12-17 22:00 | disposition left against medical advice (07) ==
LOC: HO.ED 21:59
PROVIDERS: Physician Assistant Medical; Emergency Provider Emergency Medicine
DX: R07.9 Chest pain, unspecified (principal); Z20.822 Contact with and (suspected) exposure to COVID-19
CPT/HCPCS: 80053; 83735; 84484; 85025; 87635; 99281; 99283

== ENCOUNTER → 2022-01-08 12:33 | Outpatient (BNVA) | payer OTHER, SELFPAY | PROVIDERS: Visit Provider Registered Nurse Diabetes Educator | DX: E10.65 Type 1 diabetes mellitus with hyperglycemia (principal); E78.5 Hyperlipidemia, unspecified; Z91.14 Patient's other noncompliance with medication regimen | CPT/HCPCS: 99211 ==

== ENCOUNTER → 2022-02-27 11:13 | Outpatient (BNVA) | payer OTHER, SELFPAY | PROVIDERS: Visit Provider Internal Medicine Endocrinology, Diabetes & Metabolism | DX: E10.65 Type 1 diabetes mellitus with hyperglycemia (principal); Z79.4 Long term (current) use of insulin | CPT/HCPCS: 36415; 80053; 80307; 81001; 82009; 82077; 82803; 82947; 83036; 83605; 83690; 85025; 87086; 87502; 87635; 96361; 96372; 96374; 99212; 99284; J1815 ==

== ENCOUNTER 2022-02-27 12:03 | Emergency (ER) | payer OTHER, SELFPAY ==
[2022-02-27 12:21] VITALS: BP 136/84; PULSE 87; RESP 16; TEMP 37.5; O2SAT 100; BMI 18.3
--- NOTE | 2022-02-27 13:07 | ED.GENADULT ---
HPI - General Adult General Chief complaint: Psychiatric Symptoms Stated complaint: Blood Sugar 574 Crisis Time Seen by Provider: 02/27/22 12:56 Source: patient Mode of arrival: ambulatory Limitations: no limitations History of Present Illness HPI narrative: 32-year-old male who presents emergency department for evaluation of elevated glucose and suicidal ideation. The patient was seen by endocrinology today for management of his diabetes. His point of care glucose was greater than 500. He states that he did not take his Lantus tests or you walk today. He states that his glucose goal is 90-150 but his glucose is usually in the 300 range. He was given 10 units of Humalog subcutaneously and sent to the emergency department for evaluation. Patient also told the damascener that he was suicidal. The patient told me that 2 weeks ago he was thinking of killing himself and he was in that state of mind where he wanted to . He stop taking his medications but after 3 days was feeling very weak and restarted his insulin. He states that since then he has had intermittent thoughts of suicidal ideation. He states that he would take a gun and shoot himself. He states that this feeling of suicidal ideation is intermittent. He is not treated for depression or anxiety. The patient states that he does smoke marijuana daily. He also uses 2 small rocks of crack cocaine twice a day Related Data Previous Rx's Medication Instructions Recorded pen needle, diabetic 32 gauge x #150 ea 09/05/21 (BD Blanca 2nd Gen Pen Needle) insulin lispro 100 unit/mL 6 - 12 unit (0.06 - 0.12 mL) 09/13/21 subcutaneous pen subcut QID #15 mL atorvastatin 20 mg tablet 20 mg PO BEDTIME #30 tabs 09/19/21 blood sugar diagnostic (FreeStyle #150 ea 09/19/21 Lite Strips) blood-glucose meter (FreeStyle #1 ea 09/19/21 Lite Meter kit) flash glucose scanning reader #1 ea 09/19/21 (FreeStyle Eusebio 2 [place]) flash glucose sensor (FreeStyle #2 ea 09/19/21 Eusebio 2 Sensor kit) lancets 28 gauge (FreeStyle #200 ea 09/19/21 Lancets) insulin glargine 100 unit/mL (3 24 unit (0.24 mL) subcut QPM #45 mL 08/10/22 mL) subcutaneous pen insulin glargine 100 unit/mL (3 24 unit (0.24 mL) subcut QPM #15 mL 10/31/21 mL) subcutaneous pen (Lantus Solostar U-100 Insulin) insulin lispro 100 unit/mL 6 - 12 unit (0.06 - 0.12 mL) 10/31/21 subcutaneous pen subcut TID #45 mL glucagon 3 mg/actuation nasal 3 mg intranasal ONCE unresponsive 11/22/21 spray (Baqsimi) hypoglycemia 30 days #2 ea Allergies Allergy/AdvReac Type Severity Reaction Status Date / Time No Known Allergies Allergy Verified 10/31/21 11:07 [No Known Allergies*] Review of Systems Review of Systems: Yes all other systems are reviewed and are negative [facility] Past Medical History [facility] Narrative: Social history: He smokes 3 cigarettes per day times many years. He denies alcohol use. He smokes marijuana daily. He smoke 2 small rock so crack cocaine per day. Medical History Dental decay Diabetes mellitus type 1, uncontrolled Hyperlipidemia LDL goal <100 Noncompliance Surgical History No history of previous surgery Family History Family History Maternal Grandmother Diabetes, type I Social History Social History (Updated 02/27/22 @ 11:25 by CALOS Blanc) Household Members: None Alcohol intake: former Patient Tobacco Use Status: Current someday Tobacco user Substance Use Type: Crack/Cocaine and Marijuana Advance Directives: No Physical Exam ED Vital Signs: Vital Signs - 24 hr 02/27/22 12:21 02/27/22 15:15 Temperature 99.5 F Pulse Rate 87 88 Respiratory Rate 16 16 Blood Pressure 136/84 Pulse Oximetry 100 99 Oxygen Delivery Method Room Air Room Air BMI result Body Mass Index 18.3 Const Other: Awake, alert, male patient, he is very thin, he is pleasant cooperative, answers all questions appropriately HENDC Head: Yes normal to inspection, Yes normocephalic and Yes atraumatic Ears: external ears normal General nose exam: Normal external nose present Face and sinus: Yes normal facial exam Mouth: Normal oral and palatal mucosa present Throat: Yes posterior oropharynx normal Eyes General: appearance normal, both eyes and all related structures Pupils: Equal, round and reactive pupils present Neck Neck: Yes normal visual inspection, Yes no lymphadenopathy, Yes trachea midline and Yes supple Chest Chest palpation & inspection: normal inspection of the chest and normal palpation of entire chest wall Resp Effort & Inspection: normal respiratory effort and able to speak in complete sentences Auscultation: clear to auscultation bilaterally Cardio Rate: regular rate Rhythm: regular rhythm Heart sounds: S1 normal heart sound present, S2 normal heart sound present and no murmurs GI Inspection: Yes normal to inspection Palpation (GI): Soft to palpation, nontender and no guarding Auscultation: normal bowel sounds General: Yes no CVA tenderness Back/Spine/Pelvis Back: no CVA tenderness Skin General skin exam: no rashes or lesions noted Neuro Cranial nerves: Yes CN's II-XII intact bilaterally and Yes Equal, round and reactive pupils present Cognition (Neuro): normal cognition Motor exam (neuro): 5/5 motor strength present throughout Extrem General: Yes normal to inspection Psych Appearance: grossly normal Speech and movement: Normal speech and movement present Affect: normal affect Attitude: cooperative Thought content: Suicidality present Course Course Course Narrative: 32-year-old male with a history of diabetes mellitus, marijuana and crack cocaine use who was sent to emergency department from his endocrine neurologist office for evaluation of elevated glucose greater than 500 and suicidal ideation. Patient states that his glucose goal is 90-150 but his glucose usually runs in the 300 range. He states that he has been feeling suicidal on and off for the last 2 weeks and he did try to kill himself by stopping his insulin for 3 days but then restarted his insulin after he was feeling weak. He states that since then he has been compliant with his insulin regimen. The patient told me that he does think of suicide on and off, he states that he would shoot himself with a gun but he is not feeling suicidal at this time. The patient will be placed on a one-to-one observation. I did order laboratory evaluation includes CBC, CMP, venous blood gas, lactic acid, acetone, point of care glucose, urinalysis, lipase, alcohol level, urine drug screen. 13 18: Patient's point of care glucose was 379. Based on this I did order 2 L of lactated Ringer's IV and regular insulin 10 units IV. 1543: Laboratory evaluation: CBC was normal. The VBG pH normal 7.39 with normal pCO2 48. Serum CO2 elevated at 30. Glucose elevated at 310. Lactic acid elevated 2.7-this is not secondary to sepsis and is related to his diabetes/acidosis. LFTs were normal. Urinalysis revealed no ketones, acetone was below detectable limits. Urine tox screen was positive for cocaine and for marijuana. The patient is feeling better after the above treatment, the patient's point of care glucose came down 04/24/2010 and the patient does not have any evidence for DKA at this time. The patient told me that he is not actively suicidal at this time, he states that he feels safe going home and will not kill himself. He told me that he was suicidal last week by is not thinking of hurting himself currently. He is willing to talk to [facility] as an outpatient. Given this discussion I do not think that the patient be kept on a 05 05 and that we can discharge him to home. I did tell him that if he changes his mind, if he feels like he is going to hurt himself and he should return to the emergency department and we can help him. Medications Administered Discontinued Medications Generic Name Dose Route Start Last Admin Trade Name Keith PROtilia Reason Stop Dose Admin Lactated Ringer's 1,000 mls @ 0 mls/hr 02/27/22 13:08 02/27/22 15:04 Lr IV 02/27/22 13:09 Infused .Q0M STA Infusion Wide Open Lactated Ringer's 1,000 mls @ 0 mls/hr 02/27/22 13:15 02/27/22 15:04 Lr IV 02/27/22 14:15 Infused .Q0M AMISHA Infusion Wide Open Insulin Human Regular 5 unit 02/27/22 13:08 02/27/22 13:52 Insulin Regular, Human 100 Unit/Ml 3 Ml Vial IVPUSH 02/27/22 13:09 5 unit ONCE ONE Administration Discharge Plan Discharge Clinical Impression: Acute hyperglycemia, Suicidal ideation, Depression, Acute dehydration, Cocaine use disorder Patient Disposition: Home, Self-Care Instructions: Depression (ED) Additional Instructions: Continue taking medications for your diabetes as prescribed by your damascener. At this time you told me that you feel safe to go home in you do not want to hurt yourself. Sometimes when we get very depressed we think about hurting herself, it is important that you get outpatient follow-up to help treat your depression. Please contact [facility] ( [facility]) at [phone]. Follow-up with your doctor in 2 days. Please return to the emergency department if your symptoms get worse or if you develop any symptoms that are concerning to you. Prescriptions: No Action (DME) pen needle, diabetic [BD Blanca 2nd Gen Pen Needle] 32 gauge x 5/32 needle See Rx Instructions .ROUTE .MEDSUPPLY Qty: 150 6RF Rx Instructions: As directed five times a day insulin lispro 100 unit/mL insulin pen 6 - 12 unit subcut QID Qty: 15 6RF Baqsimi 3 mg/actuation spray,non-aerosol 3 mg intranasal ONCE 30 Days Qty: 2 6RF Rx Instructions: [place] once for severe hypoglycemia when patient cannot self-treat with glucose. Afterwards turn on side. May repeat after 15 minutes if patient does not respond. insulin glargine 100 unit/mL (3 mL) insulin pen 24 unit subcut QPM Qty: 45 3RF insulin lispro 100 unit/mL insulin pen 6 - 12 unit subcut TID Qty: 45 3RF insulin glargine [Lantus Solostar U-100 Insulin] 100 unit/mL (3 mL) insulin pen 24 unit subcut QPM Qty: 15 6RF (DME) FreeStyle Eusebio 2 Sensor Kit See Rx Instructions .Route Qty: 2 12RF Rx Instructions: As directed to test 4 times daily a nd prn atorvastatin 20 mg tablet 20 mg PO BEDTIME Qty: 30 6RF (DME) FreeStyle Eusebio 2 [place] Misc See Rx Instructions .Route Qty: 1 0RF Rx Instructions: As directed (DME) blood-glucose meter [FreeStyle Lite Meter] Kit See Rx Instructions .ROUTE .MEDSUPPLY Qty: 1 0RF Rx Instructions: As directed (DME) FreeStyle Lite Strips Strip See Rx Instructions .ROUTE .MEDSUPPLY Qty: 150 11RF Rx Instructions: As directed four times a day (DME) lancets [FreeStyle Lancets] 28 gauge misc See Rx Instructions .ROUTE .MEDSUPPLY Qty: 200 11RF Rx Instructions: 4 times a day Interventions: [place]-Suicide Risk Severity Scale Last Done: 02/27/22 15:13
[2022-02-27 13:12] LABS: Glucose, Whole Blood 379 mg/dL (60-115)
[2022-02-27] MEDS: Insulin Regular, Human 100 UNIT/ML 3 ML VIAL IVPUSH (13:52)
[2022-02-27 13:53] LABS: MANUAL DIFF FLAG NO
[2022-02-27] MEDS: Lactated Ringers 1,000 ML 1000 ML IV ×2 (13:56)
[2022-02-27 13:57] LABS: Venous Blood Gas Refer to POC result
[2022-02-27 13:58] LABS: VBG Base Excess 3.6 mmol/L; VBG HCO3 29 mmol/L (22-26); VBG pCO2 48 mmHg; VBG pH 7.39 (7.32-7.43); VBG pO2 43 mmHg
[2022-02-27 13:59] LABS: Basophils Absolute Auto 0.1 X10*3/uL (0.0-0.2); Basophils Percent Auto 0.7 % (0-2); Eosinophils Absolute Auto 0.1 X10*3/uL (0.0-0.4); Eosinophils Percent Auto 0.7 % (0-4); Hematocrit 45.4 % (42.0-52.0); Hemoglobin 15.2 g/dl (14.0-18.0); Imm Gran Abs Auto 0.02 X10*3/uL (0.00-0.03); Imm Gran Pct Auto 0.2 % (0.0-0.4); Lymphocytes Absolute Auto 1.7 X10*3/uL (1.2-4.9); Lymphocytes Percent Auto 20.4 % (20-40); Mean Corpuscular HGB Conc 33.5 g/dl (31.0-36.0); Mean Corpuscular Hemoglobin 29.8 pg (27.0-33.0); Mean Platelet Volume 11.4 fL (9.4-12.4); Monocytes Absolute Auto 0.4 X10*3/uL (0.1-1.2); Monocytes Percent Auto 5.2 % (2-11); Neutrophils Absolute Auto 6.1 x10*3/uL (2.0-8.3); Neutrophils Percent Auto 72.8 % (45-73); Platelet Count 278 X10*3/uL (160-400); Red Cell Distribution Width 11.9 % (11.0-16.0); White Blood Count 8.4 X10*3/uL (4.8-10.8)
[2022-02-27 14:11] LABS: Acetone, serum QL Negative (Negative); COVID-19 Test Negative (Negative); IDNOW Serial# 16C4AD1C
[2022-02-27 14:12] LABS: Ethanol < 10 mg/dL
[2022-02-27 14:13] LABS: IDNOW Serial# BCCEAD1C; Influenza A Negative (Negative); Influenza B2 Negative (Negative)
[2022-02-27 14:18] LABS: Lactic Acid 2.7 mmol/L (0.5-2.0)
[2022-02-27 14:20] LABS: Alanine Aminotransferase 28 U/L (0-40); Alkaline Phosphatase 128 U/L (39-117); Anion Gap 12 (12-20); Aspartate Amino Transferase 16 U/L (5-37); Bilirubin Total 0.4 mg/dL (0.0-1.0); Blood Urea Nitrogen 9 mg/dL (9-16); Calcium 9.9 mg/dL (8.4-10.2); Carbon Dioxide 30 mmol/L (22-29); Chloride 99 mmol/L (96-108); Creatinine Clr Calc Pharmacy 82.1; Estimated Glomerular Filt Rate > 60; Glucose Random 310 mg/dL (60-115); Lipase 31 U/L (8-78); Sodium 137 mmol/L (135-145); Total Protein 6.8 g/dL (6.5-8.0)
[2022-02-27 14:43] LABS: Appearance Urine Clear; Color Urine Yellow; Glucose Urine UA >=1000 mg/dL (Negative); Leukocyte Esterase Urine Trace (Negative); Nitrite Urine Negative (Negative); PH 6.5 (5.0-9.0); Specific Gravity - Urine >= 1.030 (1.005-1.025); UMIC TRIGGER UACC YES; Urine Blood Negative (Negative); Urine Ketones Negative (Negative); Urine Protein Negative (Neg-Trace)
[2022-02-27 14:52] LABS: Amphetamine Screen Urine Not Detected (Not Detect); Bacteria Urine None Seen (None Seen); Barbiturates, Urine Not Detected (Not Detect); Benzodiazepines Screen Urine Not Detected (Not Detect); Cannabinoid Screen Urine POSITIVE (Not Detect); Cocaine Screen Urine POSITIVE (Not Detect); Fentanyl, urine Not Detected (Not Detect); Hyaline Casts Urine 0-2 /LPF (0-2); Opiate Screen Urine Not Detected (Not Detect); Phencyclidine Screen Urine Not Detected (Not Detect); RBC Urine 0-2 /HPF (0-2); Squamous Epithelial Cell Urine 0-2 /HPF (0-2); UACC Culture Trigger YES; WBC Urine 21-50 /HPF (0-5)
[2022-02-27 15:15] VITALS: PULSE 88; RESP 16; O2SAT 99
[2022-02-27 15:40] LABS: Glucose, Whole Blood 111 mg/dL (60-115)
[2022-02-27 15:51] LABS: Reflex Lactate? Lactic Acid Added
== END 2022-02-27 16:00 | disposition home or self-care (01) ==
PROVIDERS: Emergency Provider Emergency Medicine Emergency Medical Services
DX: E11.65 Type 2 diabetes mellitus with hyperglycemia (principal); R45.851 Suicidal ideations; F33.1 Major depressive disorder, recurrent, moderate; E86.0 Dehydration; F14.10 Cocaine abuse, uncomplicated; F17.210 Nicotine dependence, cigarettes, uncomplicated; Z79.899 Other long term (current) drug therapy; Z71.6 Tobacco abuse counseling
CPT/HCPCS: 36415; 80053; 80307; 81001; 82009; 82077; 82803; 82947; 83036; 83605; 83690; 85025; 87086; 87502; 87635; 96361; 96372; 96374; 99212; 99284; J1815

== ENCOUNTER → 2022-04-23 13:05 | Outpatient (BNVA) | payer OTHER, SELFPAY | PROVIDERS: Visit Provider Nurse Practitioner Psychiatric/Mental Health | DX: F14.10 Cocaine abuse, uncomplicated (principal); F32.1 Major depressive disorder, single episode, moderate | CPT/HCPCS: 80305; 99202; 99212 ==

== ENCOUNTER → 2022-04-30 13:32 | Outpatient (BNVA) | payer OTHER, SELFPAY | PROVIDERS: Visit Provider Nurse Practitioner Psychiatric/Mental Health | DX: F14.10 Cocaine abuse, uncomplicated (principal); F32.1 Major depressive disorder, single episode, moderate; Z79.899 Other long term (current) drug therapy | CPT/HCPCS: 80305; 99212 ==

== ENCOUNTER → 2022-05-07 10:26 | Outpatient (BNVA) | payer OTHER, SELFPAY | PROVIDERS: Visit Provider Internal Medicine Endocrinology, Diabetes & Metabolism | DX: E10.65 Type 1 diabetes mellitus with hyperglycemia (principal) | CPT/HCPCS: 82947; 96372; 99212; J1815 ==

== ENCOUNTER 2022-05-07 11:21 | Emergency (ER) | payer OTHER, SELFPAY ==
--- NOTE | 2022-05-07 11:23 | ED.GENADULT ---
HPI - General Adult General Chief complaint: Psychiatric Symptoms Stated complaint: SI,NON MED COMPL BS 476 FROM MD OFFICE Time Seen by Provider: 05/07/22 11:23 Source: patient and EMS Mode of arrival: EMS Limitations: no limitations History of Present Illness HPI narrative: Patient is a 32 year old assigned male at with a history of diabetes, depression, and cocaine use presenting to the emergency department today with suicidal ideation and medication non-compliance. Patient states that he has not been taking any of his medications and he is feeling suicidal. Patient denies any dizziness, lightheadedness, abdominal pain, nausea, vomiting, fever, chills, blurry vision, double vision, loss of vision, chest pain, difficulty breathing, shortness of breath, back pain, night sweats, pain with urination, increased urinary frequency, increased urinary urgency, blood in his urine or stool, syncope or a near syncopal episode, recent trauma or falls, bowel incontinence, bladder incontinence, bowel retention, bladder retention, or any other complaints at this time. Onset (ago): day(s) Severity: mild Relieving factors: none Exacerbating factors: none Associated symptoms: denies other symptoms Treatments prior to arrival: none Related Data Home Medications Medication Instructions Recorded Confirmed gabapentin 100 mg capsule 100 mg PO BID 05/07/22 05/07/22 insulin glargine 100 unit/mL (3 24 unit subcut BEDTIME 05/07/22 05/07/22 mL) subcutaneous pen (Lantus Solostar U-100 Insulin) insulin lispro 100 unit/mL See Rx Instructions .Route .COMPLEX 05/07/22 05/07/22 subcutaneous pen Previous Rx's Medication Instructions Recorded digital therapeutics, OUD (Reset-O #1 ea 05/08/22 Digital Tato (OUD)) nicotine (polacrilex) 2 mg gum 2 mg buccal Q2H PRN nicotine 05/14/22 (Quit) cravings #20 ea quetiapine 50 mg tablet 50 mg PO BEDTIME #14 tabs 05/14/22 trazodone 50 mg tablet 50 mg PO BEDTIME PRN sleep #30 tabs 05/14/22 Allergies Allergy/AdvReac Type Severity Reaction Status Date / Time No Known Allergies Allergy Verified 05/08/22 13:38 [No Known Allergies*] Review of Systems Constitutional: Constitutional: Reports no additional constitutional complaints, Denies chills, Denies fever(s) and Denies night sweats Eyes: Eyes: Reports no additional eye complaints, Denies blurry vision, Denies change in vision, Denies diplopia, Denies eye discharge, Denies loss of vision and Denies eye pain ENT: Denies dizziness Cardiovascular: Cardiovascular: Reports no additional cardiovascular complaints, Denies chest pain, Denies lightheadedness, Denies Loss of Consciousness and Denies dyspnea Respiratory: Respiratory: Reports no additional respiratory complaints and Denies dyspnea Gastrointestinal: Gastrointestinal: Reports no additional gastrointestinal complaints, Denies abdominal pain, Denies melena, Denies hematochezia, Denies change in bowel habits and Denies change in stool character Genitourinary: Genitourinary: Reports no additional male genitourinary complaints, Denies hematuria, Denies oliguria, Denies difficulty urinating, Denies dysuria, Denies urinary frequency, Denies urinary hesitancy, Denies urinary incontinence and Denies urinary urgency Musculoskeletal: Musculoskeletal: Reports no additional musculoskeletal complaints, Denies numbness and Denies tingling Neurologic: Denies dizziness, Denies loss of vision, Denies numbness and Denies tingling Psychiatric: Psychiatric: Reports no additional psychiatric complaints and Reports suicidal ideation Endocrine: Endocrine: Reports no additional endocrine complaints Hematologic/Lymphatic: Hematologic/Lymphatic: Reports no additional hematologic/lymphatic complaints Allergic/Immunologic: Allergic/Immunologic: Reports no additional allergic/immunologic complaints PMFSH Past Medical History Attestation statement: The following information was validated with the patient. Source: old records reviewed and nursing notes reviewed Medical History Dental decay Diabetes mellitus type 1, uncontrolled Hyperlipidemia LDL goal <100 Noncompliance Surgical History No history of previous surgery Family History Family History Maternal Grandmother Diabetes, type I Social History Social History Household Members: Family Housing: Apartment Housing Other:: rents a room Alcohol intake: unknown Patient Tobacco Use Status: Current everyday Tobacco user Tobacco use type: Cigarette Cigarettes Per Day: 8 Patient Interested in Nicotine Replacement: Yes Patient Given Instructions on How to Stop Smoking: Yes Date Education Initiated: 05/07/22 Substance Use Type: Crack/Cocaine Do you have thoughts of harming others: None service: No Current occupational status: employed Cognitive needs: No Hearing needs: No Vision needs: No Physical Exam ED Vital Signs: Vital Signs - 24 hr 05/07/22 11:31 05/07/22 13:50 Temperature 99.0 F Pulse Rate 84 Respiratory Rate 18 18 Blood Pressure 133/82 Pulse Oximetry 97 Oxygen Delivery Method Room Air BMI result Body Mass Index 17.9 Const General: cooperative, no acute distress, alert and awake Nutritional Appearance: well nourished Orientation/consciousness: patient oriented x3 Limitations: no limitations HENMT Head: Yes normal to inspection and Yes atraumatic Ears: hearing grossly normal bilaterally and external ears normal General nose exam: Normal external nose present, no nasal discharge noted and no epistaxis Face and sinus: Yes normal facial exam, No abrasion and No laceration Mouth: Normal oral and palatal mucosa present, no drooling and no muffled voice Eyes General: appearance normal, both eyes and all related structures Periorbital: periorbital findings normal Eyelids: Yes eyelids normal Conjunctivae: conjunctivae normal Pupils: Equal, round and reactive pupils present EOM: EOMs intact bilaterally Neck Neck: Yes normal visual inspection, Yes full ROM and Yes no lymphadenopathy Chest Chest palpation & inspection: normal inspection of the chest Resp Effort & Inspection: normal respiratory effort and able to speak in complete sentences Auscultation: clear to auscultation bilaterally Cardio Rate: regular rate Rhythm: regular rhythm GI Inspection: Yes normal to inspection Palpation (GI): Soft to palpation, not firm, nontender and no guarding Neuro General: patient oriented x3 and moves all extremities Cranial nerves: Yes Equal, round and reactive pupils present Cognition (Neuro): normal cognition Motor exam (neuro): 5/5 motor strength present throughout Sensory Exam: Normal double simultaneous stimulation for sensation Coordination: [id number] test normal Extrem General: Yes normal to inspection, Yes full ROM and Yes capillary refill normal Psych Appearance: grossly normal Mental Status: mental status grossly normal Affect: normal affect Attitude: cooperative Thought process: Normal thought process present Thought content: Normal thought content present Insight: Good insight present (Psych) Medical Decision Making Medical Decision Making MDM Narrative: Patient is a 32 year old assigned male at with a history of DM and depression presenting to the emergency department today with increased depression. Patient's physical exam was unremarkable. Patient's blood work was unremarkable. I explained my physical exam findings as well as all test results to the patient. I answered all questions asked by the patient. Patient met with CARE team who recommended discharge. I stressed the importance of the patient taking his medication as prescribed. I stressed the importance of the patient following up with his primary care provider. I stressed the importance of the patient returning to the emergency department immediately if his symptoms were to worsen or if he were to develop any dizziness, shortness of breath, difficulty breathing, chest pain, blurry vision, loss of vision, nausea, vomiting, abdominal pain, fever, chills, back pain, or any other complaints. Patient verbalized agreement and understanding with this treatment plan and discharge. Differential Diagnosis Differential Diagnoses: The differential diagnosis associated with the presentation includes depression, DM Consult Healthcare Provider Management of the patient was discussed with: Behavioral Health Provider (CARE team recommends discharge) Lab Data MDM Lab Attestation statement: I reviewed the patient's lab results. 05/07/22 12:06 05/07/22 12:06 Labs: Lab Results 05/07/22 05/07/22 05/07/22 Range/Units 11:44 12:06 12:06 WBC 6.6 (4.8-10.8) X10*3/uL RBC 5.18 (4.60-5.80) X10*6/uL Hgb 15.4 (14.0-18.0) g/dl Hct 45.6 (42.0-52.0) % MCV 88.0 (80.0-98.0) fL MCH 29.7 (27.0-33.0) pg MCHC 33.8 (31.0-36.0) g/dl RDW 12.4 (11.0-16.0) % Plt Count 291 (160-400) X10*3/uL MPV 11.1 (9.4-12.4) fL Immature Gran % (Auto) 0.5 H (0.0-0.4) % Neut % (Auto) 62.8 (45-73) % Lymph % (Auto) 28.8 (20-40) % [place] % (Auto) 5.9 (2-11) % Eos % (Auto) 1.1 (0-4) % Baso % (Auto) 0.9 (0-2) % Lymph # (Auto) 1.9 (1.2-4.9) X10*3/uL [place] # (Auto) 0.4 (0.1-1.2) X10*3/uL Eos # (Auto) 0.1 (0.0-0.4) X10*3/uL Baso # (Auto) 0.1 (0.0-0.2) X10*3/uL Abs Immat Gran (auto) 0.03 (0.00-0.03) X10*3/uL Absolute Neuts (auto) 4.1 (2.0-8.3) x10*3/uL Absolute Nucleated RBC 0.000 (0.0-0.012) X10*3/uL Nucleated RBC % (auto) 0.0 (0.0-0.2) /100WBC Sodium 140 (135-145) mmol/L Potassium 4.0 (3.3-5.1) mmol/L Chloride 100 (96-108) mmol/L Carbon Dioxide 27 (22-29) mmol/L Anion Gap 17 (12-20) BUN 8 L (9-16) mg/dL Creatinine 0.81 (0.5-1.4) mg/dL Estim Creat Clear Calc 91.5 Estimated GFR > 60 POC Glucose 301 H (60-115) mg/dL Random Glucose 186 H (60-115) mg/dL Calcium 10.2 (8.4-10.2) mg/dL Total Bilirubin 0.5 (0.0-1.0) mg/dL AST 41 H (5-37) U/L ALT 35 (0-40) U/L Alkaline Phosphatase 114 (39-117) U/L Ammonia (13-55) umol/L Total Protein 7.2 (6.5-8.0) g/dL Albumin 4.1 (3.5-5.0) g/dL Urine Color Urine Appearance Urine pH (5.0-9.0) Ur Specific [place] (1.005-1.025) Urine Protein (Neg-Trace) mg/dL Urine Glucose (UA) (Negative) mg/dL Urine Ketones (Negative) mg/dL Urine Blood (Negative) Urine Nitrite (Negative) Ur Leukocyte Esterase (Negative) Urine RBC (0-2) /HPF Urine WBC (0-5) /HPF Ur Squamous Epith Cells (0-2) /HPF Calcium Oxalate Crystal Urine Bacteria (None Seen) Hyaline Casts (0-2) /LPF Urine Yeast Salicylates < 5.0 L (15-30) mg/dL Urine Opiates Screen (Not Detect) Urine Fentanyl Screen (Not Detect) Acetaminophen < 17 (<30) mcg/mL Ur Barbiturates Screen (Not Detect) Ur Phencyclidine Scrn (Not Detect) Ur Amphetamines Screen (Not Detect) U Benzodiazepines Scrn (Not Detect) Urine Cocaine Screen (Not Detect) U Marijuana (THC) Screen (Not Detect) Ethyl Alcohol < 10 mg/dL COVID-19 ([facility]INA) (Negative) COVID-19 Clin Com 05/07/22 05/07/22 05/07/22 Range/Units 12:06 12:06 13:55 WBC (4.8-10.8) X10*3/uL RBC (4.60-5.80) X10*6/uL Hgb (14.0-18.0) g/dl Hct (42.0-52.0) % MCV (80.0-98.0) fL MCH (27.0-33.0) pg MCHC (31.0-36.0) g/dl RDW (11.0-16.0) % Plt Count (160-400) X10*3/uL MPV (9.4-12.4) fL Immature Gran % (Auto) (0.0-0.4) % Neut % (Auto) (45-73) % Lymph % (Auto) (20-40) % [place] % (Auto) (2-11) % Eos % (Auto) (0-4) % Baso % (Auto) (0-2) % Lymph # (Auto) (1.2-4.9) X10*3/uL [place] # (Auto) (0.1-1.2) X10*3/uL Eos # (Auto) (0.0-0.4) X10*3/uL Baso # (Auto) (0.0-0.2) X10*3/uL Abs Immat Gran (auto) (0.00-0.03) X10*3/uL Absolute Neuts (auto) (2.0-8.3) x10*3/uL Absolute Nucleated RBC (0.0-0.012) X10*3/uL Nucleated RBC % (auto) (0.0-0.2) /100WBC Sodium (135-145) mmol/L Potassium (3.3-5.1) mmol/L Chloride (96-108) mmol/L Carbon Dioxide (22-29) mmol/L Anion Gap (12-20) BUN (9-16) mg/dL Creatinine (0.5-1.4) mg/dL Estim Creat Clear Calc Estimated GFR POC Glucose (60-115) mg/dL Random Glucose (60-115) mg/dL Calcium (8.4-10.2) mg/dL Total Bilirubin (0.0-1.0) mg/dL AST (5-37) U/L ALT (0-40) U/L Alkaline Phosphatase (39-117) U/L Ammonia 55 (13-55) umol/L Total Protein (6.5-8.0) g/dL Albumin (3.5-5.0) g/dL Urine Color Yellow Urine Appearance Clear Urine pH 6.0 (5.0-9.0) Ur Specific [place] >= 1.030 H (1.005-1.025) Urine Protein Negative (Neg-Trace) mg/dL Urine Glucose (UA) >=1000 H (Negative) mg/dL Urine Ketones Negative (Negative) mg/dL Urine Blood Negative (Negative) Urine Nitrite Negative (Negative) Ur Leukocyte Esterase Trace H (Negative) Urine RBC 0-2 (0-2) /HPF Urine WBC 21-50 H (0-5) /HPF Ur Squamous Epith Cells 3-5 (0-2) /HPF Calcium Oxalate Crystal Present Urine Bacteria None Seen (None Seen) Hyaline Casts 0-2 (0-2) /LPF Urine Yeast Present Salicylates (15-30) mg/dL Urine Opiates Screen (Not Detect) Urine Fentanyl Screen (Not Detect) Acetaminophen (<30) mcg/mL Ur Barbiturates Screen (Not Detect) Ur Phencyclidine Scrn (Not Detect) Ur Amphetamines Screen (Not Detect) U Benzodiazepines Scrn (Not Detect) Urine Cocaine Screen (Not Detect) U Marijuana (THC) Screen (Not Detect) Ethyl Alcohol mg/dL COVID-19 ([facility]) Negative (Negative) COVID-19 Clin Com See Note 05/07/22 05/07/22 Range/Units 13:55 15:17 WBC (4.8-10.8) X10*3/uL RBC (4.60-5.80) X10*6/uL Hgb (14.0-18.0) g/dl Hct (42.0-52.0) % MCV (80.0-98.0) fL MCH (27.0-33.0) pg MCHC (31.0-36.0) g/dl RDW (11.0-16.0) % Plt Count (160-400) X10*3/uL MPV (9.4-12.4) fL Immature Gran % (Auto) (0.0-0.4) % Neut % (Auto) (45-73) % Lymph % (Auto) (20-40) % [place] % (Auto) (2-11) % Eos % (Auto) (0-4) % Baso % (Auto) (0-2) % Lymph # (Auto) (1.2-4.9) X10*3/uL [place] # (Auto) (0.1-1.2) X10*3/uL Eos # (Auto) (0.0-0.4) X10*3/uL Baso # (Auto) (0.0-0.2) X10*3/uL Abs Immat Gran (auto) (0.00-0.03) X10*3/uL Absolute Neuts (auto) (2.0-8.3) x10*3/uL Absolute Nucleated RBC (0.0-0.012) X10*3/uL Nucleated RBC % (auto) (0.0-0.2) /100WBC Sodium (135-145) mmol/L Potassium (3.3-5.1) mmol/L Chloride (96-108) mmol/L Carbon Dioxide (22-29) mmol/L Anion Gap (12-20) BUN (9-16) mg/dL Creatinine (0.5-1.4) mg/dL Estim Creat Clear Calc Estimated GFR POC Glucose 97 (60-115) mg/dL Random Glucose (60-115) mg/dL Calcium (8.4-10.2) mg/dL Total Bilirubin (0.0-1.0) mg/dL AST (5-37) U/L ALT (0-40) U/L Alkaline Phosphatase (39-117) U/L Ammonia (13-55) umol/L Total Protein (6.5-8.0) g/dL Albumin (3.5-5.0) g/dL Urine Color Urine Appearance Urine pH (5.0-9.0) Ur Specific [place] (1.005-1.025) Urine Protein (Neg-Trace) mg/dL Urine Glucose (UA) (Negative) mg/dL Urine Ketones (Negative) mg/dL Urine Blood (Negative) Urine Nitrite (Negative) Ur Leukocyte Esterase (Negative) Urine RBC (0-2) /HPF Urine WBC (0-5) /HPF Ur Squamous Epith Cells (0-2) /HPF Calcium Oxalate Crystal Urine Bacteria (None Seen) Hyaline Casts (0-2) /LPF Urine Yeast Salicylates (15-30) mg/dL Urine Opiates Screen Not Detected (Not Detect) Urine Fentanyl Screen Not Detected (Not Detect) Acetaminophen (<30) mcg/mL Ur Barbiturates Screen Not Detected (Not Detect) Ur Phencyclidine Scrn Not Detected (Not Detect) Ur Amphetamines Screen Not Detected (Not Detect) U Benzodiazepines Scrn Not Detected (Not Detect) Urine Cocaine Screen POSITIVE H (Not Detect) U Marijuana (THC) Screen POSITIVE H (Not Detect) Ethyl Alcohol mg/dL COVID-19 ([facility]) (Negative) COVID-19 Clin Com Discharge Plan Discharge Clinical Impression: Depression, Diabetes mellitus type 1, uncontrolled, Cocaine use disorder Patient Disposition: Home, Self-Care Instructions: Cocaine Abuse (ED), Depression (ED) Additional Instructions: Follow up with your primary care provider. Return to the emergency department immediately if your symptoms worsen or if you develop any dizziness, shortness of breath, difficulty breathing, chest pain, blurry vision, loss of vision, nausea, vomiting, abdominal pain, fever, chills, back pain, or any other complaints. Prescriptions: No Action trazodone 50 mg tablet 50 mg PO BEDTIME PRN (Reason: sleep) Qty: 30 0RF quetiapine 50 mg tablet 50 mg PO BEDTIME Qty: 14 0RF nicotine (polacrilex) [Quit 2] 2 mg gum 2 mg buccal Q2H PRN (Reason: nicotine cravings) Qty: 20 0RF gabapentin 100 mg capsule 100 mg PO BID insulin lispro 100 unit/mL insulin pen See Rx Instructions .ROUTE .COMPLEX Rx Instructions: Doctor's Order insulin glargine [Lantus Solostar U-100 Insulin] 100 unit/mL (3 mL) insulin pen 24 unit SUBCUT BEDTIME (DME) Reset-O Digital Tato (OUD) Misc See Rx Instructions .MEDSUPPLY Qty: 1 3RF Rx Instructions: As directed (3-4 times a week) 84 days Interventions: [place]-Suicide Risk Severity Scale Last Done: 05/07/22 13:50 ED Discharge Assessment Last Done: 05/07/22 17:36 Discharge Date/Time: 05/07/22 17:37 Print Language: Indian
--- NOTE | 2022-05-07 11:25 | ECG_ITS ---
Test Reason : cocaine use Blood Pressure : / mmHG Vent. Rate : 073 BPM Atrial Rate : 073 BPM P-R Int : 136 ms QRS Dur : 092 ms QT Int : 370 ms P-R-T Axes : 065 068 067 degrees QTc Int : 407 ms Normal sinus rhythm Normal ECG When compared with ECG of 16-APR-2020 17:43, ST no longer elevated in Inferior leads Nonspecific T wave abnormality no longer evident in Inferior leads Referred By: Maria A Philip Electronically Signed By:Baldev Morales
[2022-05-07 11:31] VITALS: BP 133/82; PULSE 84; RESP 18; TEMP 37.2; O2SAT 97; BMI 17.9
[2022-05-07 11:47] LABS: Glucose, Whole Blood 301 mg/dL (60-115)
--- NOTE | 2022-05-07 11:48 | PC.NURSE ---
Preliminary med re completed. Pt endorses long hx of non med compliance.
[2022-05-07 12:14] LABS: MANUAL DIFF FLAG NO
[2022-05-07 12:15] LABS: Basophils Absolute Auto 0.1 X10*3/uL (0.0-0.2); Basophils Percent Auto 0.9 % (0-2); Eosinophils Absolute Auto 0.1 X10*3/uL (0.0-0.4); Eosinophils Percent Auto 1.1 % (0-4); Hematocrit 45.6 % (42.0-52.0); Hemoglobin 15.4 g/dl (14.0-18.0); Imm Gran Abs Auto 0.03 X10*3/uL (0.00-0.03); Imm Gran Pct Auto 0.5 % (0.0-0.4); Lymphocytes Absolute Auto 1.9 X10*3/uL (1.2-4.9); Lymphocytes Percent Auto 28.8 % (20-40); Mean Corpuscular HGB Conc 33.8 g/dl (31.0-36.0); Mean Corpuscular Hemoglobin 29.7 pg (27.0-33.0); Mean Platelet Volume 11.1 fL (9.4-12.4); Monocytes Absolute Auto 0.4 X10*3/uL (0.1-1.2); Monocytes Percent Auto 5.9 % (2-11); Neutrophils Absolute Auto 4.1 x10*3/uL (2.0-8.3); Neutrophils Percent Auto 62.8 % (45-73); Platelet Count 291 X10*3/uL (160-400); Red Blood Count 5.18 X10*6/uL (4.60-5.80); Red Cell Distribution Width 12.4 % (11.0-16.0); White Blood Count 6.6 X10*3/uL (4.8-10.8)
[2022-05-07 12:33] LABS: COVID-19 Test Negative (Negative); IDNOW Serial# 16C4AD1C
[2022-05-07 12:34] LABS: Ammonia 55 umol/L (13-55)
[2022-05-07 12:42] LABS: Acetaminophen LAB < 17 mcg/mL (<30); Alanine Aminotransferase 35 U/L (0-40); Albumin Level 4.1 g/dL (3.5-5.0); Alkaline Phosphatase 114 U/L (39-117); Anion Gap 17 (12-20); Aspartate Amino Transferase 41 U/L (5-37); Bilirubin Total 0.5 mg/dL (0.0-1.0); Blood Urea Nitrogen 8 mg/dL (9-16); Calcium 10.2 mg/dL (8.4-10.2); Carbon Dioxide 27 mmol/L (22-29); Chloride 100 mmol/L (96-108); Creatinine Clr Calc Pharmacy 91.5; Estimated Glomerular Filt Rate > 60; Ethanol < 10 mg/dL; Glucose Random 186 mg/dL (60-115); Salicylate < 5.0 mg/dL (15-30); Sodium 140 mmol/L (135-145); Total Protein 7.2 g/dL (6.5-8.0)
[2022-05-07 13:50] VITALS: RESP 18
[2022-05-07 14:03] LABS: Appearance Urine Clear; Color Urine Yellow; Glucose Urine UA >=1000 mg/dL (Negative); Leukocyte Esterase Urine Trace (Negative); Nitrite Urine Negative (Negative); Specific Gravity - Urine >= 1.030 (1.005-1.025); UMIC TRIGGER UA YES; Urine Blood Negative (Negative); Urine Ketones Negative (Negative); Urine Protein Negative (Neg-Trace)
[2022-05-07 14:14] LABS: Amphetamine Screen Urine Not Detected (Not Detect); Barbiturates, Urine Not Detected (Not Detect); Benzodiazepines Screen Urine Not Detected (Not Detect); Cannabinoid Screen Urine POSITIVE (Not Detect); Cocaine Screen Urine POSITIVE (Not Detect); Fentanyl, urine Not Detected (Not Detect); Opiate Screen Urine Not Detected (Not Detect); Phencyclidine Screen Urine Not Detected (Not Detect)
[2022-05-07 14:15] LABS: Bacteria Urine None Seen (None Seen); Calcium Oxalate Crystals Urine Present; Hyaline Casts Urine 0-2 /LPF (0-2); RBC Urine 0-2 /HPF (0-2); WBC Urine 21-50 /HPF (0-5)
[2022-05-07 15:21] LABS: Glucose, Whole Blood 97 mg/dL (60-115)
--- NOTE | 2022-05-07 16:42 | MHC.CARE ---
Patient evaluated by the CARE Team, he does not require an inpatient psychiatric admission at this time. Will attend [facility], intake to be scheduled tomorrow. CARE Team will provide a follow up call to patient as a check in. ED provider, MARINA Lora updated and in agreement with plan of care.
--- NOTE | 2022-05-08 17:05 | MHC.CARE ---
Referred pt to PHP
--- NOTE | 2022-05-09 10:09 | MHC.CARE ---
CARE Team attempted follow-up call. Voicemail was left.
--- NOTE | 2022-05-10 09:00 | MHC.CARE ---
CARE Team completed a follow-up call. Pt expressed feeling ?fine? with no signs of distress.? Pt reported no concerns or question regarding discharge plan.
== END 2022-05-07 17:37 | disposition home or self-care (01) ==
PROVIDERS: Physician Assistant Medical; Emergency Provider Emergency Medicine
DX: F33.1 Major depressive disorder, recurrent, moderate (principal); R45.851 Suicidal ideations; E10.9 Type 1 diabetes mellitus without complications; F14.10 Cocaine abuse, uncomplicated; Z20.822 Contact with and (suspected) exposure to COVID-19; Z20.828 Contact with and (suspected) exposure to other viral communicable diseases; Z79.4 Long term (current) use of insulin; Z79.899 Other long term (current) drug therapy
CPT/HCPCS: 36415; 80053; 80143; 80179; 80307; 81001; 81003; 82077; 82140; 82947; 85025; 87635; 93005; 99284; 99285; S9485

== ENCOUNTER → 2022-05-08 13:33 | Outpatient (BNVA) | payer OTHER, SELFPAY | PROVIDERS: Visit Provider Nurse Practitioner Psychiatric/Mental Health | DX: F14.10 Cocaine abuse, uncomplicated (principal); F32.A Depression, unspecified | CPT/HCPCS: 80305; 99212 ==

== ENCOUNTER 2022-05-14 13:00 | Outpatient (RCR) | payer OTHER, SELFPAY ==
[2022-05-14 10:40] VITALS: BP 100/64; PULSE 80
[2022-05-14 10:42] VITALS: BMI 18.4
--- NOTE | 2022-05-14 11:59 | P.HPPSP_ITS ---
HPI Date of Service: 05/14/22 Chief Complaint: depression Sources of Information: patient interviewed, chart reviewed and crisis/core team assessment reviewed HPI Medical Problems Affecting Mental Status: No Narrative: Patient is a 32-year-old single male, referred to PHP through the care team, after presenting to ED with passive SI and depression. Patient 1st received treatment approximately age 16 or 17, states for bipolar disorder. However, patient unable to identify any clear period of time where he experienced manic or hypomanic episodes. Does not recall medications he was treated with. Denies any history of therapy. Patient reports 1st experiencing symptoms of depression approximately age 22, states that it was related to his substance use, crack cocaine. Also uses cannabis. Endorses current symptoms including feeling hopeless and helpless, difficulty with sleep, decreased energy, passive SI without a plan or intent. No history SIB. Denies any history of a VH. No hospitalizations, no PHP. Was recently started with Lamictal, stop taking 4 days ago due to side effects. Recently lost job due to substance use and medical issues, currently living with mother and stepfather. Reports that he would like to have medication adjustments while here, as well as work on coping skills. Patient also [facility]. Patient has long history of noncompliance with type 1 diabetes. Past Psychiatric History: Adolescent saw prescriber briefly in [place], does not recall name. Reports medications as a teen, does not recall names. Currently engaged in treatment through [facility]. No hx of IP, PHP. No current psych providers. Recent ED presentation, sent by outpatient provider, due to passive SI by noncompliance with diabetes treatment. Medical Evaluation Reviewed: Yes [facility] Medical History Dental decay Diabetes mellitus type 1, uncontrolled Hyperlipidemia LDL goal <100 Noncompliance Surgical History No history of previous surgery Family History: Father: by heroin overdose. Mother: Inpatient for 1 month, several years ago, was acutely suicidal. Social History: Patient was raised by both parents, has 1 sister and 1 brother. After parents , father of heroin overdose. Mother remarried. Patient currently lives with mother and stepfather. Recently lost job, starting new position this week. Did not complete high school. Substance History: Nicotine daily since age 15, current. Cannabis since age 14, several times per week, current. Crack cocaine since age 22, daily no use since 05/07/2022. Trauma History: denies Diagnostics Vital Signs (24Hr): Vital Signs - 24 hr 05/14/22 10:40 Pulse Rate 80 Blood Pressure 100/64 BMI result Body Mass Index 18.4 Meds/Allergies Meds Home Medications Medication Instructions Recorded Confirmed Type gabapentin 100 mg capsule 100 mg PO BID 05/07/22 05/07/22 History insulin glargine 100 unit/mL (3 24 unit subcut BEDTIME 05/07/22 05/07/22 History mL) subcutaneous pen (Lantus Solostar U-100 Insulin) insulin lispro 100 unit/mL See Rx Instructions .Route .COMPLEX 05/07/22 05/07/22 History subcutaneous pen Allergies Allergies Allergy/AdvReac Type Severity Reaction Status Date / Time No Known Allergies Allergy Verified 05/08/22 13:38 [No Known Allergies*] Mental Status Exam Mental Status Exam Narrative: Thin male, casually groomed/dressed. No abnormal movements, no tics or tremors, no cogwheeling. Normal gait, posture. Denies SI/HI, although does endorse passive SI at times. No perceptual disturbances noted. No intoxication or withdrawals noted. Patient Appearance: Fatigued Patient Orientation: Person, Place, Time and Situation Level of Consciousness: Appropriate Patient Behavior: Appropriate and Poor Eye Contact (intermittent eye contact) Mood Description: Depressed Affect Description: Blunted and Flat Patient Cognition Impaired: No Ability to Follow Directions: Good Speech Pattern: Clear and Soft-Spoken Memory Description: Intact Hallucinations: None Delusions: Not Present Thought Process: Intact Thought Content: positive for Intact Depressive Symptoms: Difficulty Sleeping, Changes in Appetite, Loss of Int. in Activity, Feelings of Worthlessness, Hopelessness, Feelings of Guilt, Unhappiness, Increased Fatigue, Thoughts of /Suicide, Low Self Esteem and Loss of Energy Judgement: Fair Assessment & Plan Assessment & Plan (1) MDD (major depressive disorder), severe: Status: Acute Code(s): F32.2 - Major depressive disorder, single episode, severe without psychotic features Assessment and Plan: Patient with history of major depressive disorder, cocaine use disorder, referred to [facility] after presenting to care team with passive SI via noncompliance with diabetes treatment. Recently lost job and apartment, due to substance use and depression. Supposed to start a new position this week, looking forward to this. Denies current SI, although does indicate passive SI at times. Symptoms include feeling hopeless and helpless, poor sleep, decreased energy, anhedonia, guilt, low self-esteem. Was recently started with lamotrigine, he stopped four days ago, due to side effect of loose stools. Reports he was in treatment briefly as a teen, states he believes he was told at that time he has bipolar disorder. However, a during interview he denies any clear history of earl or hypomania. Does endorse some periods of time with hypomanic type symptoms for less than one day, but states these were when he was under the influence of crack cocaine. Does report that he gets upset easily, describes a recent episode where he became angry with his step-father who would not give him a ride. Reviewed recent labs and EKG results with patient that were completed in the ED on 05/07/2022. Discussed various medication options. Discussed quetiapine, including risks, including adverse effects both common and serious, benefits, alternatives of treatment recommendations. He is agreeable to start quetiapine 50 mg at bedtime at this time. Discussed blood sugar levels, swings, how they can affect mood/depression. Patient is agreeable to bringing glucometer and insulin with him while attending partial. Agreeable to following treatment for diabetes while engaged in program. (2) Cocaine use disorder: Status: Acute Code(s): F14.10 - Cocaine abuse, uncomplicated Assessment and Plan: Patient reports no cocaine use in past week. Experiencing some cravings, able to manage by keeping himself busy. Using gabapentin when becomes anxious, and craves use. Plan 1. Continue with current [facility] plan of care. 2. DC Lamictal. 3. Start quetiapine 50 mg at bedtime. 3. Continue other medications as currently prescribed. 4. Nicorette gum ordered. 5. Follow-up as per protocol. Patient educated on: diagnosis, medication risk/benefits, substance abuse, therapeutic strategies and medical condition Reason for continued partial hosp. stay Substantial Risk for: harm to self, inability to function, rapid decompensation and med/psych decompensation Certification I certify that partial hospital treatment is medically necessary due to the symptoms and problems resulting from the patient's mental illness and the failure to treat the patient at the [facility] level of care would likely result in the patient requiring inpatient psychiatric care which could not be prevented at a less intensive level of care. Time Spent With Patient Time: Total time managing care of this patient today __60__ minutes.
[2022-05-14 12:01] VITALS: TEMP 36.8
[2022-05-14 14:59] LABS: Amphetamine Screen Urine Not Detected (Not Detect); Barbiturates, Urine Not Detected (Not Detect); Benzodiazepines Screen Urine Not Detected (Not Detect); Cannabinoid Screen Urine POSITIVE (Not Detect); Cocaine Screen Urine POSITIVE (Not Detect); Fentanyl, urine Not Detected (Not Detect); Opiate Screen Urine Not Detected (Not Detect); Phencyclidine Screen Urine Not Detected (Not Detect)
--- NOTE | 2022-05-15 09:23 | PC.NURSE ---
Patient did not show up to the program this morning. He did say yesterday he was staring a new job at [employer]. I called patient and left him a message to call me. [facility] staff are aware.
--- NOTE | 2022-05-15 13:00 | PC.NURSE ---
Patient did not call me back. Spoke to his emergency contact his mother Mabel whom he lives with. She stated he is ok and is not home at the moment. I asked her to have him call me when he gets home to f/u as to whether his is continuing the program or not. She stated she would have him call me when he gets home.
--- NOTE | 2022-05-15 13:43 | PC.NURSE ---
Keira called and reports he is unable to do PHP at this time d/t trying to figure out his new work schedule. When asked if he is safe he stated he was safe. Stated he feels good and is in a good space . Denied SI. Patient has the crisis number if needed. Patient encouraged to call the program if he needs us in the future. PHP staff is aware.
== END 2022-05-14 23:59 | disposition left against medical advice (07) ==
LOC: HO.PHPA 13:00
PROVIDERS: Visit Provider Psychiatry & Neurology Psychiatry
DX: F32.2 Major depressive disorder, single episode, severe without psychotic features (principal); F14.10 Cocaine abuse, uncomplicated
CPT/HCPCS: 80307; 90791; 90853

== ENCOUNTER → 2022-05-27 14:11 | Outpatient (BNVA) | payer OTHER, SELFPAY | PROVIDERS: Visit Provider Nurse Practitioner Psychiatric/Mental Health | DX: F14.10 Cocaine abuse, uncomplicated (principal); F32.2 Major depressive disorder, single episode, severe without psychotic features | CPT/HCPCS: 80305; 99212 ==

== ENCOUNTER 2022-06-21 22:31 | Emergency (ER) | payer OTHER, SELFPAY ==
[2022-06-21 22:34] VITALS: BP 127/78; PULSE 91; RESP 18; TEMP 36.9; O2SAT 98; BMI 18.3
--- NOTE | 2022-06-21 22:40 | ECG_ITS ---
Test Reason : HYPERGLICIMA Blood Pressure : / mmHG Vent. Rate : 087 BPM Atrial Rate : 087 BPM P-R Int : 142 ms QRS Dur : 098 ms QT Int : 364 ms P-R-T Axes : 076 064 054 degrees QTc Int : 438 ms Normal sinus rhythm Normal ECG When compared with ECG of 07-MAY-2022 11:43, No significant change was found Referred By: Generic ED Physician Electronically Signed By:EZIO RIVERA
[2022-06-21 22:42] LABS: Glucose, Whole Blood 342 mg/dL (60-115)
[2022-06-21 22:52] LABS: MANUAL DIFF FLAG NO
[2022-06-21 22:53] LABS: Basophils Absolute Auto 0.1 X10*3/uL (0.0-0.2); Basophils Percent Auto 0.7 % (0-2); Eosinophils Percent Auto 0.3 % (0-4); Hematocrit 44.9 % (42.0-52.0); Hemoglobin 15.8 g/dl (14.0-18.0); Imm Gran Abs Auto 0.02 X10*3/uL (0.00-0.03); Imm Gran Pct Auto 0.2 % (0.0-0.4); Lymphocytes Absolute Auto 2.4 X10*3/uL (1.2-4.9); Lymphocytes Percent Auto 27.4 % (20-40); Mean Corpuscular HGB Conc 35.2 g/dl (31.0-36.0); Mean Corpuscular Hemoglobin 29.3 pg (27.0-33.0); Mean Corpuscular Volume 83.3 fL (80.0-98.0); Mean Platelet Volume 10.8 fL (9.4-12.4); Monocytes Absolute Auto 0.8 X10*3/uL (0.1-1.2); Monocytes Percent Auto 9.3 % (2-11); Neutrophils Absolute Auto 5.5 x10*3/uL (2.0-8.3); Neutrophils Percent Auto 62.1 % (45-73); Platelet Count 311 X10*3/uL (160-400); Red Blood Count 5.39 X10*6/uL (4.60-5.80); Red Cell Distribution Width 11.9 % (11.0-16.0); White Blood Count 8.8 X10*3/uL (4.8-10.8)
[2022-06-21 23:32] LABS: Troponin-I High Sensitivity < 3.5 ng/L (<3.5-35.0)
--- NOTE | 2022-06-21 23:45 | ED.GENADULT ---
HPI - General Adult General Chief complaint: Dizziness Stated complaint: Hyperglycemia Time Seen by Provider: 06/21/22 23:36 Source: patient Mode of arrival: ambulatory Limitations: no limitations History of Present Illness HPI narrative: 32-year-old male presents with elevated blood sugar. Patient is a type 1 diabetic. He did not take his Lantus earlier today. He has not been taking his lisinopril as he is directed to. He is complaining of some slight dizziness and polydipsia. Denies polyuria. Denies any fevers, chills, cough or mucus production. Denies any chest pain or shortness of breath. Generally speaking, he is intermittently compliant with his medications. He reports eating throughout the day but not able to take his insulin as frequently as he takes his insulin. Patient denies any change in mental status. Denies any fever, chills, sweats, urinary frequency, urgency. His symptoms are worsened by eating. They are improved by taking his medications. He describes symptoms as moderate nature Related Data Home Medications Medication Instructions Recorded Confirmed insulin glargine 100 unit/mL (3 24 unit subcut BEDTIME 05/07/22 05/07/22 mL) subcutaneous pen (Lantus Solostar U-100 Insulin) insulin lispro 100 unit/mL See Rx Instructions .Route .COMPLEX 05/07/22 05/07/22 subcutaneous pen Previous Rx's Medication Instructions Recorded digital therapeutics, OUD (Reset-O #1 ea 05/08/22 Digital Tato (OUD)) nicotine (polacrilex) 2 mg gum 2 mg buccal Q2H PRN nicotine 05/14/22 (Quit) cravings #20 ea fluoxetine 20 mg capsule 20 mg PO DAILY #30 caps 05/29/22 gabapentin 100 mg capsule 100 mg PO BID #14 caps 06/14/22 trazodone 50 mg tablet 50 mg PO BEDTIME PRN sleep #30 tabs 06/14/22 Allergies Allergy/AdvReac Type Severity Reaction Status Date / Time No Known Allergies Allergy Verified 05/27/22 14:15 [No Known Allergies*] [facility] Past Medical History Medical History Dental decay Diabetes mellitus type 1, uncontrolled Hyperlipidemia LDL goal <100 Noncompliance Surgical History No history of previous surgery Family History Family History Maternal Grandmother Diabetes, type I Social History Social History Household Members: Family Housing: Apartment Housing Other:: rents a room Alcohol intake: unknown Patient Tobacco Use Status: Current everyday Tobacco user Tobacco use type: Cigarette Cigarettes Per Day: 8 Use of substances other than those prescribed or required for medical reasons: Unknown Substance Use Type: Crack/Cocaine Last Used Substance: Unknown Advance Directives: No Advance Directives Information Provided: No service: No Current occupational status: employed Cognitive needs: No Hearing needs: No Vision needs: No Physical Exam ED Vital Signs: Vital Signs - 24 hr 06/21/22 22:34 06/22/22 01:01 Temperature 98.4 F 98.0 F Pulse Rate 91 94 Respiratory Rate 18 18 Blood Pressure 127/78 128/70 Pulse Oximetry 98 96 Oxygen Delivery Method Room Air Room Air BMI result Body Mass Index 18.3 GEN: Well developed, no acute distress, alert, oriented HEENT: Normocephalic, atraumatic, normal external ears, nose appears normal, no oropharyngeal edema or exudates Eyes: Normal to appearance Neck: Supple, no lymphadenopathy Respiratory: Talks in complete sentences, no respiratory distress, clear to auscultation bilaterally Cardiovascular: Regular rate and rhythm, no murmurs rubs or gallops Abdomen: Soft, nontender, nondistended, no guarding, no rebound Back: No CVA tenderness Extremities: No clubbing cyanosis or edema Neurologic: No focal neurologic deficits, cranial nerves 2-12 intact, strength is 5/5 bilaterally, gait normal Skin: No rash Course Course Course Narrative: Patient is a type 1 diabetic, poorly controlled due to noncompliance presents with hyperglycemia with polydipsia and dizziness. Examination is benign. Will provide patient with partial dose of his Lantus as well as some lispro. Reevaluation(s) Reevaluation #1: Blood sugar more appropriate at this time. Discussed the importance of taking his insulin. He can discuss altnerative insulin regimens with his provider. Time: 01:09 Medications Administered Discontinued Medications Generic Name Dose Route Start Last Admin Trade Name Freq PRN Reason Stop Dose Admin Insulin Glargine 10 unit 06/21/22 23:44 06/22/22 00:15 Insulin Glargine,Hum.Rec.Anlog 100 Unit/Ml 10 Ml Vial SUBCUT 06/21/22 23:45 10 unit ONCE ONE Administration Insulin Human Lispro 10 unit 06/21/22 23:44 06/22/22 00:15 Insulin Lispro 100 Unit/Ml 3 Ml Vial SUBCUT 06/21/22 23:45 10 unit ONCE ONE Administration Medical Decision Making Medical Decision Making [facility] Narrative: 32-year-old male with type 1 diabetes presents with hyperglycemia. His symptoms include some slight dizziness and polydipsia. He denies any other symptoms. Doubt infectious etiology. Most likely his symptoms are due to medication noncompliance. Will check for electrolyte abnormality. Would not be unusual the sodium level is low due to his blood sugar. This would represent pseudo hyponatremia. Will check potassium levels. Will provide patient with supplemental insulin at this time. Will look for contributing features that might be exacerbating his current blood sugar level. Differential Diagnosis Differential Diagnoses: The differential diagnosis associated with the presentation includes (Hyperglycemia, electrolyte abnormality, medication noncompliance, infection, stress reaction) Admission/Observation Consideration of admission/observation: Escalation of care including admission/observation considered Lab Data [facility] Lab Attestation statement: I reviewed the patient's lab results. 06/21/22 22:46 06/21/22 22:47 Labs: Lab Results 06/21/22 06/21/22 06/21/22 Range/Units 22:39 22:46 22:46 WBC 8.8 (4.8-10.8) X10*3/uL RBC 5.39 (4.60-5.80) X10*6/uL Hgb 15.8 (14.0-18.0) g/dl Hct 44.9 (42.0-52.0) % MCV 83.3 (80.0-98.0) fL MCH 29.3 (27.0-33.0) pg MCHC 35.2 (31.0-36.0) g/dl RDW 11.9 (11.0-16.0) % Plt Count 311 (160-400) X10*3/uL MPV 10.8 (9.4-12.4) fL Immature Gran % (Auto) 0.2 (0.0-0.4) % Neut % (Auto) 62.1 (45-73) % Lymph % (Auto) 27.4 (20-40) % [place] % (Auto) 9.3 (2-11) % Eos % (Auto) 0.3 (0-4) % Baso % (Auto) 0.7 (0-2) % Lymph # (Auto) 2.4 (1.2-4.9) X10*3/uL [place] # (Auto) 0.8 (0.1-1.2) X10*3/uL Eos # (Auto) 0.0 (0.0-0.4) X10*3/uL Baso # (Auto) 0.1 (0.0-0.2) X10*3/uL Abs Immat Gran (auto) 0.02 (0.00-0.03) X10*3/uL Absolute Neuts (auto) 5.5 (2.0-8.3) x10*3/uL Absolute Nucleated RBC 0.000 (0.0-0.012) X10*3/uL Nucleated RBC % (auto) 0.0 (0.0-0.2) /100WBC Sodium (135-145) mmol/L Potassium (3.3-5.1) mmol/L Chloride (96-108) mmol/L Carbon Dioxide (22-29) mmol/L Anion Gap (12-20) BUN (9-16) mg/dL Creatinine (0.5-1.4) mg/dL Estim Creat Clear Calc Estimated GFR POC Glucose 342 H (60-115) mg/dL Random Glucose (60-115) mg/dL Calcium (8.4-10.2) mg/dL Total Bilirubin (0.0-1.0) mg/dL Direct Bilirubin (0.0-0.5) mg/dL AST (5-37) U/L ALT (0-40) U/L Alkaline Phosphatase (39-117) U/L Troponin I High Sens < 3.5 (<3.5-35.0) ng/L Total Protein (6.5-8.0) g/dL Albumin (3.5-5.0) g/dL Lipase (8-78) U/L Ethyl Alcohol mg/dL Acetone, Qual (Negative) 03/31/23 04/01/23 Range/Units 22:47 00:53 WBC (4.8-10.8) X10*3/uL RBC (4.60-5.80) X10*6/uL Hgb (14.0-18.0) g/dl Hct (42.0-52.0) % MCV (80.0-98.0) fL MCH (27.0-33.0) pg MCHC (31.0-36.0) g/dl RDW (11.0-16.0) % Plt Count (160-400) X10*3/uL MPV (9.4-12.4) fL Immature Gran % (Auto) (0.0-0.4) % Neut % (Auto) (45-73) % Lymph % (Auto) (20-40) % [place] % (Auto) (2-11) % Eos % (Auto) (0-4) % Baso % (Auto) (0-2) % Lymph # (Auto) (1.2-4.9) X10*3/uL [place] # (Auto) (0.1-1.2) X10*3/uL Eos # (Auto) (0.0-0.4) X10*3/uL Baso # (Auto) (0.0-0.2) X10*3/uL Abs Immat Gran (auto) (0.00-0.03) X10*3/uL Absolute Neuts (auto) (2.0-8.3) x10*3/uL Absolute Nucleated RBC (0.0-0.012) X10*3/uL Nucleated RBC % (auto) (0.0-0.2) /100WBC Sodium 135 (135-145) mmol/L Potassium 3.4 (3.3-5.1) mmol/L Chloride 93 L (96-108) mmol/L Carbon Dioxide 23 (22-29) mmol/L Anion Gap 22 H (12-20) BUN 14 (9-16) mg/dL Creatinine 1.38 (0.5-1.4) mg/dL Estim Creat Clear Calc 54.7 Estimated GFR > 60 POC Glucose 218 H (60-115) mg/dL Random Glucose 338 H (60-115) mg/dL Calcium 10.3 H (8.4-10.2) mg/dL Total Bilirubin 0.6 (0.0-1.0) mg/dL Direct Bilirubin < 0.2 (0.0-0.5) mg/dL AST 19 (5-37) U/L ALT 49 H (0-40) U/L Alkaline Phosphatase 109 (39-117) U/L Troponin I High Sens (<3.5-35.0) ng/L Total Protein 7.4 (6.5-8.0) g/dL Albumin 4.4 (3.5-5.0) g/dL Lipase 8 (8-78) U/L Ethyl Alcohol < 10 mg/dL Acetone, Qual Negative (Negative) Independent Interpretation I performed an independent interpretation of an: EKG (Normal sinus rhythm heart rate 87, no acute ST elevations or depressions, normal intervals, early repolarization in V2 V3, evidence of LVH although this is likely due to body habitus.) Prescription Management I considered prescription management with: Other (Insulin) Discharge Plan Discharge Clinical Impression: Diabetes mellitus type 1, uncontrolled, Noncompliance Patient Disposition: Home, Self-Care Instructions: Diabetic Hyperglycemia (ED) Prescriptions: No Action fluoxetine 20 mg capsule 20 mg PO DAILY Qty: 30 0RF gabapentin 100 mg capsule 100 mg PO BID Qty: 14 0RF trazodone 50 mg tablet 50 mg PO BEDTIME PRN (Reason: sleep) Qty: 30 0RF nicotine (polacrilex) [Quit 2] 2 mg gum 2 mg buccal Q2H PRN (Reason: nicotine cravings) Qty: 20 0RF insulin lispro 100 unit/mL insulin pen See Rx Instructions .ROUTE .COMPLEX Rx Instructions: Doctor's Order insulin glargine [Lantus Solostar U-100 Insulin] 100 unit/mL (3 mL) insulin pen 24 unit SUBCUT BEDTIME (DME) Reset-O Digital Tato (OUD) Misc See Rx Instructions .MEDSUPPLY Qty: 1 3RF Rx Instructions: As directed (3-4 times a week) 84 days Referrals: Physician,Unknown J [Primary Care Provider] - (Follow-up with your primary care provider or out and out cigar maker hand to adjust your insulin regimen.)
[2022-06-22] MEDS: Insulin Lispro 100 UNIT/ML 3 ML VIAL 10 UNIT SUBCUT (00:15)
[2022-06-22] MEDS: Insulin Glargine,Hum.rec.anlog 100 UNIT/ML 10 ML VIAL 10 UNIT SUBCUT (00:15)
[2022-06-22 00:18] LABS: Alanine Aminotransferase 49 U/L (0-40); Albumin Level 4.4 g/dL (3.5-5.0); Alkaline Phosphatase 109 U/L (39-117); Anion Gap 22 (12-20); Aspartate Amino Transferase 19 U/L (5-37); Bilirubin Direct < 0.2 mg/dL (0.0-0.5); Bilirubin Total 0.6 mg/dL (0.0-1.0); Blood Urea Nitrogen 14 mg/dL (9-16); Calcium 10.3 mg/dL (8.4-10.2); Carbon Dioxide 23 mmol/L (22-29); Chloride 93 mmol/L (96-108); Creatinine Clr Calc Pharmacy 54.7; Estimated Glomerular Filt Rate > 60; Ethanol < 10 mg/dL; Glucose Random 338 mg/dL (60-115); Lipase 8 U/L (8-78); Potassium 3.4 mmol/L (3.3-5.1); Sodium 135 mmol/L (135-145); Total Protein 7.4 g/dL (6.5-8.0)
[2022-06-22 00:26] LABS: Acetone, serum QL Negative (Negative)
[2022-06-22 00:57] LABS: Glucose, Whole Blood 218 mg/dL (60-115)
[2022-06-22 01:01] VITALS: BP 128/70; PULSE 94; RESP 18; TEMP 36.7; O2SAT 96
== END 2022-06-22 01:14 | disposition home or self-care (01) ==
PROVIDERS: Emergency Provider Emergency Medicine
DX: E10.65 Type 1 diabetes mellitus with hyperglycemia (principal); E78.5 Hyperlipidemia, unspecified; F17.210 Nicotine dependence, cigarettes, uncomplicated; Z91.14 Patient's other noncompliance with medication regimen
CPT/HCPCS: 36415; 80053; 82009; 82077; 82248; 82947; 83690; 84484; 85025; 93005; 99283; 99285

== ENCOUNTER → 2022-08-13 13:38 | Outpatient (BNVA) | payer OTHER, SELFPAY | PROVIDERS: Visit Provider Internal Medicine Endocrinology, Diabetes & Metabolism | DX: E10.65 Type 1 diabetes mellitus with hyperglycemia (principal) | CPT/HCPCS: 82947; 83036; 99212 ==

== ENCOUNTER 2022-10-03 10:34 | Outpatient (AMB) | payer OTHER, SELFPAY ==
[2022-10-03 10:35] VITALS: BP 100/70; PULSE 101; O2SAT 99; BMI 18.3
--- NOTE | 2022-10-03 10:35 | MHC.PC.OV ---
Vital Signs 10/03/22 10:35 Height 5 ft 5 in Weight 110 lb BMI 18.3 BP 100/70 Blood Pressure Location Lt brachial Position Sitting Pulse 101 H Pulse Source Pulse Oximeter Temp Source Skin Pulse Oximetry (%) 99 Oxygen Delivery Method Room Air Intake Visit Reasons: Physical Exam Intake Note: Patient is here today for a physical. 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 Allergies No Known Allergies [No Known Allergies*] Allergy (Verified 10/03/22 10:44) Medication List - Last Reconciled 10/03/22 by RODO Castro Nodeable, OUD (Reset-O Digital Tato (OUD)) As directed (3-4 times a week) 84 days flash glucose scanning reader (FreeStyle Eusebio 2 [place]) As directed fluoxetine 20 mg PO DAILY gabapentin 100 mg PO BID insulin glargine (Lantus Solostar U-100 Insulin) 24 units subcut BEDTIME insulin lispro Doctor's Order lamotrigine 25 mg PO DAILY nicotine (polacrilex) (Quit) 2 mg buccal Q2H PRN pen needle, diabetic (BD Blanca 2nd Gen Pen Needle) As directed quetiapine 50 mg PO BEDTIME trazodone 50 mg PO .daily at bedtime PRN Tobacco use date assessed: 10/03/22 Dental Screening Dental Screen Date: 10/03/22 Did you have a dental visit in the last 12 months?: No Did you have a dental problem in the last 6 months where you did not have access to dental care?: No Was dental information given to patient?: Patient has dentist (on waiting list ) HPI Physical Exam HPI Details Patient is a 32-year-old male presents today for physical exam. Medical history significant for diabetes type 1 uncontrolled-followed by [place] [facility]-reports not always compliant with insulins, hyperlipidemia-patient was encouraged to complete his blood work, depression-not interested in counseling or psychiatry referral - was seen by comprehensive care clinic and started on antidepressant medication-never follow-up with them again-encouraged patient to follow-up with comprehensive care clinic, cocaine use disorder-were seen by comprehensive care clinic-encouraged patient to follow-up with the clinic-patient reports last cocaine use 2 days ago. He reports blood sugars ranging in 300s. He reports smoking 5 cigarettes per day, not interested in smoking cessation. Has referral to see Ophthalmology for diabetic eye exam, will follow-up on this. Patient denies shortness of breath or chest pain. Patient denies SI or HI. [facility] Medical History Dental decay Diabetes mellitus type 1, uncontrolled Hyperlipidemia LDL goal <100 Noncompliance Surgical History No history of previous surgery Family History Maternal Grandmother Diabetes, type I Social History Household Members: Family Housing: Apartment Housing Other:: rents a room Alcohol intake: unknown Patient Tobacco Use Status: Current everyday Tobacco user Tobacco use type: Cigarette Cigarettes Per Day: 8 Substance Use Type: Crack/Cocaine service: No Current occupational status: employed Cognitive needs: No Hearing needs: No Vision needs: No Questionnaire PHQ-9 Over the last 2 weeks, how often have you been bothered by any of the following problems? 1. Little interest or pleasure in doing things: not at all 2. Feeling down, depressed, or hopeless: not at all 3. Trouble falling or staying asleep, or sleeping too much: not at all 4. Feeling tired or having little energy: not at all 5. Poor appetite or overeating: not at all 6. Feeling bad about yourself - or that you are a failure or have let yourself or your family down: not at all 7. Trouble concentrating on things, such as reading the newspaper or watching television: not at all 8. Moving or speaking so slowly that other people could have noticed. Or the opposite - being so fidgety or restless that you have been moving around a lot more than usual: not at all 9. Thoughts that you would be better off or of hurting yourself in some way: not at all Total score: 0 Depression Screening Interpretation: Negative 50259 - PHQ-9 Billing: Yes Source: Developed by Drs. Luis Silva, Isabelle Roca, Grabiel Mario and colleagues, with an educational italo from [employer]. Thrive Questionnaire Date Thrive assessed: 10/03/22 I am a: Patient What is your living situation today?: I have a steady place to live Within the past 12 months, did the food you bought not last and you didn't have the money to get more?: Never true Within the past 12 months, did you worry whether your food would run out before you got money to buy more?: Never true Do you have trouble paying for medicines?: No Do you have trouble getting transportation to medical appointments?: No Do you have trouble paying your heating and electricity bill?: No Do you have trouble taking care of your child, family member or friend?: No Do you have trouble with day-to-day activities such as bathing, preparing meals, shopping, managing finances, etc.?: No Are you currently unemployed and looking for a job?: No Are you interested in more education?: No Currently or been in a relationship where the following occur: no concerns reported AUDIT C Alcohol Use Questionnaire (AUDIT-C) 1. How often do you have a drink containing alcohol?: Never 3. How often do you have six or more drinks on one occasion?: Never Total Score: 0 Score Reviewed/Action Taken: No EMMA-7 AMB Questionnaire EMMA-7 Date EMMA - 7 assessed: 10/03/22 Feeling nervous, anxious, or on edge: 0 = Not at all Not being able to stop or control worryin = Not at all Worrying too much about different things: 0 = Not at all Trouble relaxin = Not at all Being so restless that it is hard to sit still: 0 = Not at all Becoming easily annoyed or irritable: 0 = Not at all Feeling afraid as if something awful might happen: 0 = Not at all Total EMMA-7 score (0-4 normal; 5-9 mild; 10-14 moderate; 15-21 severe): 0 Source: Developed by Drs. Luis Silva, Isabelle Roca, Grabiel Mario and colleagues, with an educational italo from [employer]. EMMA-7 Assessment Billing EMMA-7 Assessment Tool: EMMA-7 Assessment 67626 Review of Systems Const Denies body aches, Denies chills, Denies fever(s) and Denies headache(s) Eyes Denies change in vision ENT Denies dizziness, Denies otalgia, Denies headache(s), Denies nasal discharge, Denies sinus pain and Denies sore throat Card Denies chest pain, Denies edema, Denies lightheadedness and Denies dyspnea Resp Denies cough and Denies dyspnea GI Denies constipation, Denies diarrhea, Denies nausea and Denies vomiting Denies dysuria Musc Denies myalgias, Reports numbness (toes ) and Denies tingling Skin/Breast Denies lesions and Denies rash Neuro Denies dizziness, Denies headache(s), Reports numbness (toes ) and Denies tingling Physical exam (Primary Care) Vital Signs: Last Vital Signs Pulse 101 H 10/03/22 10:35 BP 100/70 10/03/22 10:35 Pulse Ox 99 10/03/22 10:35 Oxygen Delivery Method Room Air 10/03/22 10:35 BMI result Body Mass Index 18.3 Tobacco/Smoking Status: Tobacco use Status Tobacco use date assessed 10/03/22 10/03/22 10:37 Patient Tobacco Use Status Current everyday Tobacco 10/03/22 10:37 Tobacco use type Cigarette 10/03/22 10:37 PHQ-9: PHQ-9 Score PHQ-9: Total score 0 10/03/22 10:37 Depression Screening Interpretation: Negative Thrive Assessment: Date of Thrive Assessment Date Thrive assessed 10/03/22 10/03/22 10:37 Currently or been in a relationship where the following occur: no concerns reported Const General: cooperative and no acute distress Orientation/consciousness: patient oriented x3 HENMT Head: Yes normocephalic and Yes atraumatic Ears: TM's normal bilaterally Face and sinus: Yes sinuses nontender Mouth: oropharynx normal and moist mucous membranes Throat: Yes posterior oropharynx normal Eyes General: appearance normal, both eyes and all related structures Pupils: Equal, round and reactive pupils present EOM: EOMs intact bilaterally Neck Neck: Yes normal visual inspection, Yes full ROM and Yes no lymphadenopathy Thyroid: Thyroid normal Resp Effort & Inspection: normal respiratory effort and able to speak in complete sentences Auscultation: clear to auscultation bilaterally, no crackles, no rales, no rhonchi and no wheezes Cardio Rate: regular rate Rhythm: regular rhythm Heart sounds: S1 normal heart sound present, S2 normal heart sound present and no murmurs GI Palpation (GI): Soft to palpation, not firm, nontender, no guarding, not rigid and no hepatosplenomegaly Auscultation: normal bowel sounds Skin General skin exam: no rashes or lesions noted Neuro General: patient oriented x3 Cranial nerves: Yes Equal, round and reactive pupils present Gait exam (Neuro): Normal gait present Extrem General: Yes full ROM and No edema Assessment and Plan Assessment & Plan (1) Cocaine use disorder: Code(s): F14.10 - Cocaine abuse, uncomplicated Plan: Continue to follow-up with comprehensive care clinic Patient was encouraged not to use cocaine as this will damage his health (2) Noncompliance: Code(s): Z91.19 - Patient's noncompliance with other medical treatment and regimen Plan: Encouraged compliance with insulins (3) Hyperlipidemia LDL goal <100: Code(s): E78.5 - Hyperlipidemia, unspecified Plan: Patient was encouraged to complete his blood work Low-cholesterol diet (4) Diabetes mellitus type 1, uncontrolled: Comment: since age 10 Code(s): E10.65 - Type 1 diabetes mellitus with hyperglycemia Plan: A1c >14.0 07/2022 Continue insulins as prescribed - reinforced compliance Low-carbohydrate diet Continue to follow-up with [place] [facility] Will follow-up on ophthalmology referral (5) MDD (major depressive disorder), severe: Comment: Continues with depressed mood, somewhat improved. No SI. Code(s): F32.2 - Major depressive disorder, single episode, severe without psychotic features Plan: Patient denies SI Continue to follow-up with comprehensive care clinic Patient declines referral to counseling or psychiatry (6) Nicotine dependence: Code(s): F17.200 - Nicotine dependence, unspecified, uncomplicated Plan: Encouraged smoking cessation (7) Adult general medical exam: Code(s): Z00.00 - Encounter for general adult medical examination without abnormal findings Plan Follow-up in 6 months or sooner as needed Orders: Orders Comprehensive [place]. Panel Fast Today E10.65 - Type 1 diabetes mellitus with hyperglycemia Lipid Panel Today E78.5 - Hyperlipidemia, unspecified Microalbumin, Random (w Creat) Today E10.65 - Type 1 diabetes mellitus with hyperglycemia Medications: Discontinued nicotine (polacrilex) (Quit) Discontinued Reason: Patient no longer taking 2 mg buccal Q2H PRN 20 ea 0RF nicotine cravings Coding Level of Care Code Est Pt Prev Care 18-39y([id number]) Diagnoses Cocaine use disorder F14.10 Noncompliance Z91.19 Hyperlipidemia LDL goal <100 E78.5 Diabetes mellitus type 1, uncontrolled E10.65 MDD (major depressive disorder), severe F32.2 Nicotine dependence F17.200 Adult general medical exam Z00.00 Additional Codes EMMA-7 Assessment Billing - EMMA-7 Assessment Tool: EMMA-7 Assessment [id number] ([id number])
== END 2022-10-03 11:01 | disposition home or self-care (01) ==
PROVIDERS: Visit Provider Nurse Practitioner Family
DX: Z00.00 Encounter for general adult medical examination without abnormal findings (principal); E10.65 Type 1 diabetes mellitus with hyperglycemia; F14.10 Cocaine abuse, uncomplicated; F32.2 Major depressive disorder, single episode, severe without psychotic features; F17.210 Nicotine dependence, cigarettes, uncomplicated; Z91.199 Patient's noncompliance with other medical treatment and regimen due to unspecified reason; E78.5 Hyperlipidemia, unspecified
CPT/HCPCS: 99395

== ENCOUNTER 2022-10-08 11:21 | Outpatient (REF) | payer OTHER, SELFPAY ==
[2022-10-08 12:53] LABS: Creatinine Urine 32.45 mg/dL; Microalbum/Creatinine Ratio Ur 24.6 ug/mg cr
[2022-10-08 13:51] LABS: TSH reflex Free T4 6.81 uIU/mL (0.32-4.0); Vitamin D 25-OH Total 35.6 ng/mL (>30)
[2022-10-08 13:55] LABS: Alanine Aminotransferase 51 U/L (0-40); Albumin Level 4.2 g/dL (3.5-5.0); Alkaline Phosphatase 123 U/L (39-117); Anion Gap 13 (12-20); Aspartate Amino Transferase 23 U/L (5-37); Bilirubin Total 0.5 mg/dL (0.0-1.0); Blood Urea Nitrogen 11 mg/dL (9-16); Calcium 10.2 mg/dL (8.4-10.2); Carbon Dioxide 30 mmol/L (22-29); Chloride 97 mmol/L (96-108); Cholesterol 284 mg/dL; Estimated Glomerular Filt Rate > 60; Glucose Fasting 440 mg/dL (60-99); HDL Cholesterol 97 mg/dL; LDL Cholesterol Calculated 161 mg/dl; Potassium 4.4 mmol/L (3.3-5.1); Sodium 136 mmol/L (135-145); Total Protein 7.8 g/dL (6.5-8.0); Triglycerides 134 mg/dL
[2022-10-08 14:10] LABS: Folate 12.6 ng/mL (> or = 4.0); Vitamin B12 912 pg/mL (200-900)
== END 2022-10-08 11:22 | disposition home or self-care (01) ==
LOC: HO.LAB 11:21
PROVIDERS: Visit Provider Nurse Practitioner Family
DX: E10.65 Type 1 diabetes mellitus with hyperglycemia (principal); E78.5 Hyperlipidemia, unspecified; F32.A Depression, unspecified
CPT/HCPCS: 36415; 80053; 80061; 82043; 82306; 82607; 82746; 84439; 84443

== ENCOUNTER 2022-10-08 15:47 | Emergency (ER) | payer OTHER, SELFPAY ==
[2022-10-08 16:11] VITALS: BP 135/68; PULSE 103; RESP 20; TEMP 36.9; O2SAT 99; BMI 18.3
--- NOTE | 2022-10-08 16:12 | ED.GENADULT ---
HPI - General Adult General Chief complaint: Recheck/Abnormal Lab/Rx Stated complaint: high blood sugar Related Data Home Medications Medication Instructions Recorded Confirmed insulin glargine 100 unit/mL (3 24 unit subcut BEDTIME 05/07/22 10/03/22 mL) subcutaneous pen (Lantus Solostar U-100 Insulin) insulin lispro 100 unit/mL See Rx Instructions .Route .COMPLEX 05/07/22 10/03/22 subcutaneous pen lamotrigine 25 mg tablet 25 mg PO DAILY 08/13/22 10/03/22 pen needle, diabetic 32 gauge x #50 ea 08/13/22 10/03/22 (BD Blanca 2nd Gen Pen Needle) quetiapine 50 mg tablet 50 mg PO BEDTIME 08/13/22 10/03/22 Previous Rx's Medication Instructions Recorded digital therapeutics, OUD (Reset-O #1 ea 05/08/22 Digital Tato (OUD)) fluoxetine 20 mg capsule 20 mg PO DAILY #30 caps 05/29/22 gabapentin 100 mg capsule 100 mg PO BID #14 caps 06/14/22 trazodone 50 mg tablet 50 mg PO .daily at bedtime PRN for 06/22/22 insomnia #30 tabs flash glucose scanning reader #1 ea 08/13/22 (FreeStyle Eusebio 2 [place]) pravastatin 10 mg tablet 10 mg PO BEDTIME #90 tabs 10/08/22 Allergies Allergy/AdvReac Type Severity Reaction Status Date / Time No Known Allergies Allergy Verified 10/09/22 10:08 [No Known Allergies*] [facility] Past Medical History Medical History Dental decay Diabetes mellitus type 1, uncontrolled Hyperlipidemia LDL goal <100 Noncompliance Surgical History No history of previous surgery Family History Family History Maternal Grandmother Diabetes, type I Social History Social History Household Members: Family Housing: Apartment Housing Other:: rents a room Alcohol intake: unknown Patient Tobacco Use Status: Current everyday Tobacco user Tobacco use type: Cigarette Cigarettes Per Day: 8 Substance Use Type: Crack/Cocaine service: No Current occupational status: employed Cognitive needs: No Hearing needs: No Vision needs: No Physical Exam ED Vital Signs: BMI result Body Mass Index 18.3 Course Course Course Narrative: This is a rapid medical exam. Deferred additional HPI, ROS, PE to primary provider. 32 yo male with history of type 1 diabetes here with high blood sugars overnight. Had routine labs done this morning and called with critically high BS. Took lantus 22 units, humalog 18 units at 1pm. Has not been sick lately, intermittently compliant with his home meds. BS critically high in triage WIll order labs. [facility] Medical Decision Making Lab Data 10/08/22 16:54 10/08/22 16:54 Labs: Lab Results 10/08/22 10/08/22 10/08/22 Range/Units 16:15 16:54 16:54 WBC 5.7 (4.8-10.8) X10*3/uL RBC 5.31 (4.60-5.80) X10*6/uL Hgb 15.7 (14.0-18.0) g/dl Hct 48.1 (42.0-52.0) % MCV 90.6 (80.0-98.0) fL MCH 29.6 (27.0-33.0) pg MCHC 32.6 (31.0-36.0) g/dl RDW 11.8 (11.0-16.0) % Plt Count 282 (160-400) X10*3/uL MPV 11.2 (9.4-12.4) fL Immature Gran % (Auto) 0.7 H (0.0-0.4) % Neut % (Auto) 66.9 (45-73) % Lymph % (Auto) 23.6 (20-40) % Pierce % (Auto) 6.8 (2-11) % Eos % (Auto) 0.9 (0-4) % Baso % (Auto) 1.1 (0-2) % Lymph # (Auto) 1.4 (1.2-4.9) X10*3/uL Pierce # (Auto) 0.4 (0.1-1.2) X10*3/uL Eos # (Auto) 0.1 (0.0-0.4) X10*3/uL Baso # (Auto) 0.1 (0.0-0.2) X10*3/uL Abs Immat Gran (auto) 0.04 H (0.00-0.03) X10*3/uL Absolute Neuts (auto) 3.8 (2.0-8.3) x10*3/uL Absolute Nucleated RBC 0.000 (0.0-0.012) X10*3/uL Nucleated RBC % (auto) 0.0 (0.0-0.2) /100WBC VBG pH (7.32-7.43) VBG pCO2 mmHg VBG pO2 mmHg VBG HCO3 (22-26) mmol/L VBG O2 Saturation % VBG Base Excess mmol/L Sodium 132 L (135-145) mmol/L Potassium 3.8 (3.3-5.1) mmol/L Chloride 93 L (96-108) mmol/L Carbon Dioxide 23 (22-29) mmol/L Anion Gap 20 (12-20) BUN 11 (9-16) mg/dL Creatinine 1.27 (0.5-1.4) mg/dL Estim Creat Clear Calc 59.4 Estimated GFR > 60 POC Glucose > 600 H* (60-115) mg/dL Random Glucose 650 H* (60-115) mg/dL Calcium 10.2 (8.4-10.2) mg/dL Magnesium 2.2 (1.6-2.6) mg/dL Total Bilirubin 0.4 (0.0-1.0) mg/dL Direct Bilirubin 0.1 (0.0-0.5) mg/dL AST 19 (5-37) U/L ALT 49 H (0-40) U/L Alkaline Phosphatase 126 H (39-117) U/L Total Protein 7.6 (6.5-8.0) g/dL Albumin 4.1 (3.5-5.0) g/dL Beta-Hydroxybutyrate 0.13 (0.02-0.27) mmol/L 10/08/22 Range/Units 16:59 WBC (4.8-10.8) X10*3/uL RBC (4.60-5.80) X10*6/uL Hgb (14.0-18.0) g/dl Hct (42.0-52.0) % MCV (80.0-98.0) fL MCH (27.0-33.0) pg MCHC (31.0-36.0) g/dl RDW (11.0-16.0) % Plt Count (160-400) X10*3/uL MPV (9.4-12.4) fL Immature Gran % (Auto) (0.0-0.4) % Neut % (Auto) (45-73) % Lymph % (Auto) (20-40) % Pierce % (Auto) (2-11) % Eos % (Auto) (0-4) % Baso % (Auto) (0-2) % Lymph # (Auto) (1.2-4.9) X10*3/uL Pierce # (Auto) (0.1-1.2) X10*3/uL Eos # (Auto) (0.0-0.4) X10*3/uL Baso # (Auto) (0.0-0.2) X10*3/uL Abs Immat Gran (auto) (0.00-0.03) X10*3/uL Absolute Neuts (auto) (2.0-8.3) x10*3/uL Absolute Nucleated RBC (0.0-0.012) X10*3/uL Nucleated RBC % (auto) (0.0-0.2) /100WBC VBG pH 7.33 (7.32-7.43) VBG pCO2 49 mmHg VBG pO2 35 mmHg VBG HCO3 26 (22-26) mmol/L VBG O2 Saturation 54.0 % VBG Base Excess -0.2 mmol/L Sodium (135-145) mmol/L Potassium (3.3-5.1) mmol/L Chloride (96-108) mmol/L Carbon Dioxide (22-29) mmol/L Anion Gap (12-20) BUN (9-16) mg/dL Creatinine (0.5-1.4) mg/dL Estim Creat Clear Calc Estimated GFR POC Glucose (60-115) mg/dL Random Glucose (60-115) mg/dL Calcium (8.4-10.2) mg/dL Magnesium (1.6-2.6) mg/dL Total Bilirubin (0.0-1.0) mg/dL Direct Bilirubin (0.0-0.5) mg/dL AST (5-37) U/L ALT (0-40) U/L Alkaline Phosphatase (39-117) U/L Total Protein (6.5-8.0) g/dL Albumin (3.5-5.0) g/dL Beta-Hydroxybutyrate (0.02-0.27) mmol/L Discharge Plan Discharge Clinical Impression: Hyperglycemia Patient Disposition: Elopement Prescriptions: No Action fluoxetine 20 mg capsule 20 mg PO DAILY Qty: 30 0RF gabapentin 100 mg capsule 100 mg PO BID Qty: 14 0RF trazodone 50 mg tablet 50 mg PO .daily at bedtime PRN (Reason: for insomnia) Qty: 30 0RF pravastatin 10 mg tablet 10 mg PO BEDTIME Qty: 90 0RF insulin lispro 100 unit/mL insulin pen See Rx Instructions .ROUTE .COMPLEX Rx Instructions: Doctor's Order insulin glargine [Lantus Solostar U-100 Insulin] 100 unit/mL (3 mL) insulin pen 24 unit SUBCUT BEDTIME (DME) Reset-O Digital Tato (OUD) Misc See Rx Instructions .MEDSUPPLY Qty: 1 3RF Rx Instructions: As directed (3-4 times a week) 84 days (DME) pen needle, diabetic [BD Blanca 2nd Gen Pen Needle] 32 gauge x 5/32 needle See Rx Instructions .ROUTE .MEDSUPPLY Qty: 50 Rx Instructions: As directed quetiapine 50 mg tablet 50 mg PO BEDTIME lamotrigine 25 mg tablet 25 mg PO DAILY (DME) FreeStyle Eusebio 2 [place] Misc See Rx Instructions .Route Qty: 1 0RF Rx Instructions: As directed Discharge Date/Time: 10/08/22 23:01
[2022-10-08 16:19] LABS: Glucose, Whole Blood > 600 mg/dL (60-115)
[2022-10-08 17:03] LABS: MANUAL DIFF FLAG NO
[2022-10-08 17:04] LABS: Basophils Absolute Auto 0.1 X10*3/uL (0.0-0.2); Basophils Percent Auto 1.1 % (0-2); Eosinophils Absolute Auto 0.1 X10*3/uL (0.0-0.4); Eosinophils Percent Auto 0.9 % (0-4); Hematocrit 48.1 % (42.0-52.0); Hemoglobin 15.7 g/dl (14.0-18.0); Imm Gran Abs Auto 0.04 X10*3/uL (0.00-0.03); Imm Gran Pct Auto 0.7 % (0.0-0.4); Lymphocytes Absolute Auto 1.4 X10*3/uL (1.2-4.9); Lymphocytes Percent Auto 23.6 % (20-40); Mean Corpuscular HGB Conc 32.6 g/dl (31.0-36.0); Mean Corpuscular Hemoglobin 29.6 pg (27.0-33.0); Mean Corpuscular Volume 90.6 fL (80.0-98.0); Mean Platelet Volume 11.2 fL (9.4-12.4); Monocytes Absolute Auto 0.4 X10*3/uL (0.1-1.2); Monocytes Percent Auto 6.8 % (2-11); Neutrophils Absolute Auto 3.8 x10*3/uL (2.0-8.3); Neutrophils Percent Auto 66.9 % (45-73); Platelet Count 282 X10*3/uL (160-400); Red Blood Count 5.31 X10*6/uL (4.60-5.80); Red Cell Distribution Width 11.8 % (11.0-16.0); White Blood Count 5.7 X10*3/uL (4.8-10.8)
[2022-10-08 17:06] LABS: VBG Base Excess -0.2 mmol/L; VBG HCO3 26 mmol/L (22-26); VBG pCO2 49 mmHg; VBG pH 7.33 (7.32-7.43); VBG pO2 35 mmHg
[2022-10-08 17:07] LABS: Venous Blood Gas Refer to POC result
[2022-10-08 17:33] LABS: Beta-Hydroxybutyrate 0.13 mmol/L (0.02-0.27)
[2022-10-08 17:37] LABS: Alanine Aminotransferase 49 U/L (0-40); Albumin Level 4.1 g/dL (3.5-5.0); Alkaline Phosphatase 126 U/L (39-117); Anion Gap 20 (12-20); Aspartate Amino Transferase 19 U/L (5-37); Bilirubin Direct 0.1 mg/dL (0.0-0.5); Bilirubin Total 0.4 mg/dL (0.0-1.0); Blood Urea Nitrogen 11 mg/dL (9-16); Calcium 10.2 mg/dL (8.4-10.2); Carbon Dioxide 23 mmol/L (22-29); Chloride 93 mmol/L (96-108); Creatinine Clr Calc Pharmacy 59.4; Estimated Glomerular Filt Rate > 60; Glucose Random 650 mg/dL (60-115); Magnesium 2.2 mg/dL (1.6-2.6); Potassium 3.8 mmol/L (3.3-5.1); Sodium 132 mmol/L (135-145); Total Protein 7.6 g/dL (6.5-8.0)
== END 2022-10-08 23:01 | disposition left against medical advice (07) ==
PROVIDERS: Nurse Practitioner Family; Emergency Provider Emergency Medicine; PCP Nurse Practitioner Family
DX: E10.65 Type 1 diabetes mellitus with hyperglycemia (principal); Z79.899 Other long term (current) drug therapy; Z79.4 Long term (current) use of insulin; F17.210 Nicotine dependence, cigarettes, uncomplicated; Z71.6 Tobacco abuse counseling
CPT/HCPCS: 36415; 80048; 80076; 82010; 82803; 82947; 83735; 85025; 99281; 99283

== ENCOUNTER 2022-10-09 09:56 | Outpatient (AMB) | payer OTHER, SELFPAY ==
--- NOTE | 2022-10-09 10:05 | MHC.OFFVIS ---
Intake Vital Signs 10/09/22 10:06 Height 5 ft 5 in Weight 112 lb 3.445 oz BMI 18.7 BP 110/70 Blood Pressure Location Rt brachial Position Sitting Pulse 85 Pulse Source Pulse Oximeter Intake Visit Reasons: ED follow up[place] [facility] [place]08[place]. Intake Note: Patient here today for Diabetes type 1 follow up visit. Patient reports he went to [facility] [place] on 10/08/2022 with high blood sugars and reports he was not seen. Patient receives DME supplies through: [facility] For eye care patient last seen 1.5 years ago. For foot care patient last seen 05/07/2022. 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 , Diabetes medications: Lantus 24 units once a day, Lispro 8 units with meals, 5 units with snacks, 5 units with soda (will add on to meal dose). He will also have a correction plus 2 units for blood sugars over 250, +3 units for blood sugars over 300, +4 units for blood sugars over 350, and + 5 units for blood sugars over 400. Noncompliant with insulin but states better Was recently seen in the [facility] for hyperglycemia. Eusebio download shows she is using the sensor 30% of the time. Average glucose is 316. Variability is 33.2% glucose is in target range 90% of the time with 8 % hyperglycemia and 73% very hyperglycemic Symptoms: Cramping in feet Hypoglycemia: once a week. Hyperglycemia:not recently Eye exam: needs to make appt Exercise: little Patient states he is not taking his insulin as actively trying to hurt/kill himself because of psychosocial reasons Laboratory Tests 06/01/20 06/01/20 06/01/20 12:30 12:30 12:30 Creatinine 0.98 Estimated GFR > 60 Fasting Glucose 371 H* Hemoglobin A1c % 12.2 Triglycerides 112 Cholesterol 227 LDL Cholesterol Di rect 134 H HDL Cholesterol 71 Microalb/Creat Rat io 06/01/20 12:30 Creatinine Estimated GFR Fasting Glucose Hemoglobin A1c % Triglycerides Cholesterol LDL Cholesterol Di rect HDL Cholesterol Microalb/Creat Rat io 13.1 [facility] Medical History Dental decay Diabetes mellitus type 1, uncontrolled Hyperlipidemia LDL goal <100 Noncompliance Surgical History No history of previous surgery Family History Maternal Grandmother Diabetes, type I Social History Household Members: Family Housing: Apartment Housing Other:: rents a room Alcohol intake: unknown Patient Tobacco Use Status: Current everyday Tobacco user Tobacco use type: Cigarette Cigarettes Per Day: 8 Substance Use Type: Crack/Cocaine service: No Current occupational status: employed Cognitive needs: No Hearing needs: No Vision needs: No Physical Exam Vital Signs: Last Vital Signs Pulse 85 10/09/22 10:06 BP 110/70 10/09/22 10:06 BMI result Body Mass Index 18.7 Absence of Cushingoid features. Absence of acromegalic features. Neck exam reveals nl size thyroid about 15 gms. No thyroid nodules palpable. No carotid bruits present. Lungs CTA. Heart S1 S2, Reg R/R. No M/R/ G. Skin exam reveals absence of vitiligo or acanthosis nigricans. Abdominal exam reveals Soft NT/ND with NA BS. No organomegaly present. Neck Other: . Extrem Other: Visual exam of foot performed. No ulcerations or open lesions. No onchomycosis, no callouses.Pulses 2 + distally Sensation intact to monofilament exam. Vibratory sensation sensed is intact with 128 Hz tuning fork Results Reviewed Results Reviewed: 10/09/22 10:12 Glucose, Whole Blood Routine Laboratory Last Values Glucose (Clinic) 223 mg/dL (60-115) H 10/09/22 10:12 Assessment & Plan Assessment & Plan (1) Diabetes mellitus type 1, uncontrolled: Comment: since age 10 Code(s): E10.65 - Type 1 diabetes mellitus with hyperglycemia Plan: This is a 32-year-old male with a history of longstanding type 1 diabetes currently being treated with basal-bolus insulin with poor glycemic control and no known microvascular or macrovascular complications. . Patient was advised to use Eusebio to scanned frequently s. I cannot adjust the insulin regimen today because of lack of data . 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 I did have a extensive discussion with the patient regarding the association of poor glycemic control and complications. Unfortunately his psychosocial issues including drug abuse and depression interfere with him obtaining optimal glycemic control. Coding Level of Care Code Est Pt Level 3 (21014) Diagnoses Diabetes mellitus type 1, uncontrolled E10.65
[2022-10-09 10:06] VITALS: BP 110/70; PULSE 85; BMI 18.7
[2022-10-09 10:16] LABS: Glucose, Whole Blood 223 mg/dL (60-115)
== END 2022-10-09 10:25 | disposition home or self-care (01) ==
PROVIDERS: PCP Nurse Practitioner Family; Visit Provider Internal Medicine Endocrinology, Diabetes & Metabolism
DX: E10.65 Type 1 diabetes mellitus with hyperglycemia (principal)
CPT/HCPCS: 99213

== ENCOUNTER → 2022-10-09 09:56 | Outpatient (BNVA) | payer OTHER, SELFPAY | PROVIDERS: PCP Nurse Practitioner Family; Visit Provider Internal Medicine Endocrinology, Diabetes & Metabolism | DX: E10.65 Type 1 diabetes mellitus with hyperglycemia (principal) | CPT/HCPCS: 82947; 99212 ==

== ENCOUNTER 2022-10-17 10:50 | Outpatient (REF) | payer OTHER, SELFPAY ==
--- NOTE | ~2022-10-17 | US_ITS ---
EXAMINATION: US ABDOMEN LIMITED CLINICAL INFORMATION: Abnormal LFTs. COMPARISON: CT abdomen and pelvis 09/10/2016. TECHNIQUE: Real-time imaging of the right upper quadrant abdominal viscera. FINDINGS: PANCREAS: Limited visualization of pancreatic tail. Imaged portion of pancreatic body is unremarkable. LIVER: Heterogeneous hepatic echotexture. Mild diffuse increase in echogenicity of the liver is characteristic of primary hepatocellular disease, possibly due to hepatic steatosis and further limits visualization. Liver measures 16.1 cm. GALLBLADDER: No gallstones. Borderline gallbladder wall thickening of 3 mm. COMMON BILE DUCT: Normal in caliber measuring 0.3 cm in diameter. RIGHT KIDNEY: No hydronephrosis. The kidney measures 11.8 cm in maximum dimension. Right renal calculi measure 0.2 cm midpole, 0.4 cm lower pole and 0.3 cm lower pole. FREE FLUID: None. US/US abdomen limited IMPRESSION: 1. Heterogeneous hepatic echotexture. Mild diffuse increase in echogenicity of the liver is characteristic of primary hepatocellular disease, possibly due to hepatic steatosis and further limits visualization. 2. Right renal calculi. No hydronephrosis. 3. Borderline gallbladder wall thickening of 3 mm. No gallstones identified.
== END 2022-10-17 10:51 | disposition home or self-care (01) ==
LOC: HO.US 10:50
PROVIDERS: PCP Nurse Practitioner Family; Visit Provider Nurse Practitioner Family
DX: R79.89 Other specified abnormal findings of blood chemistry (principal)
CPT/HCPCS: 76705

== ENCOUNTER 2022-10-18 09:43 | Observation (INO) | payer OTHER, SELFPAY ==
[2022-10-18 09:48] VITALS: BP 126/77; BP 140/80; PULSE 91; PULSE 92; RESP 16; O2SAT 98; BMI 18.6
[2022-10-18 09:55] LABS: Glucose, Whole Blood > 600 mg/dL (60-115)
[2022-10-18 09:59] VITALS: RESP 16; O2SAT 98
--- NOTE | 2022-10-18 10:16 | ED.GENADULT ---
HPI - General Adult General Chief complaint: General Medical Stated complaint: High BG (300s) per EMS Time Seen by Provider: 10/18/22 10:00 Source: patient and EMS Mode of arrival: EMS Limitations: other (vague/ poor historian) History of Present Illness HPI narrative: 32-year-old male history of uncontrolled diabetes, supposed to be on insulin however not med compliant, cocaine use disorder, major depression, nicotine dependence presents to the emergency department with concerns that he has high blood sugar, patient tells me he just knows he has high sugar however has not checked it. He tells me sometimes he feels like his lower extremities become tingly and this means sugar is high. Patient poor historian not answer my questions. Appears lethargic, agitated. Related Data Home Medications Medication Instructions Recorded Confirmed insulin glargine 100 unit/mL (3 24 unit subcut BEDTIME 05/07/22 10/18/22 mL) subcutaneous pen (Lantus Solostar U-100 Insulin) insulin lispro 100 unit/mL 1 sliding scale dose subcut TIDAC 05/07/22 10/18/22 subcutaneous pen pen needle, diabetic 32 gauge x #50 ea 08/13/22 10/03/22 (BD Blanca 2nd Gen Pen Needle) Previous Rx's Medication Instructions Recorded digital therapeutics, OUD (Reset-O #1 ea 05/08/22 Digital Tato (OUD)) flash glucose scanning reader #1 ea 08/13/22 (FreeStyle Eusebio 2 Effort) pravastatin 10 mg tablet 10 mg PO BEDTIME #90 tabs 10/08/22 Allergies Allergy/AdvReac Type Severity Reaction Status Date / Time No Known Allergies Allergy Verified 10/09/22 10:08 [No Known Allergies*] Review of Systems Review of Systems: Constitutional : No Weight loss, No Fever, No Chills, + Fatigue, + Malaise ENT/Mouth : No sore throat, No Rhinorrhea Eyes: No Eye Pain, No Swelling, No Redness Cardiovascular : No Chest Pain, No SOB, No Dyspnea on Exertion, No Orthopnea, No Edema, No Palpitations Respiratory : No Cough, No Sputum, No Wheezing Gastrointestinal : No Nausea, No Vomiting, No Diarrhea, No Constipation, No abdominal Pain, No Hematochezia, No Melena Genitourinary : No Dysuria, No Urinary Frequency, No Hematuria, Musculoskeletal : No joint pain, No Myalgias, No Joint Swelling Skin : No Skin Lesions, No rash Neuro : No Weakness, No Numbness, No Dizziness, No Headache Psych : No Anxiety/Panic, No Depression All other systems reviewed and are negative Yes all other systems are reviewed and are negative REPLACED BY [facility] Past Medical History Attestation statement: The following information was validated with the patient. Source: old records reviewed and nursing notes reviewed Medical History Dental decay Diabetes mellitus type 1, uncontrolled Hyperlipidemia LDL goal <100 Noncompliance Surgical History No history of previous surgery Family History Family History Maternal Grandmother Diabetes, type I Social History Social History Household Members: Family Housing: Apartment Housing Other:: rents a room Alcohol intake: unknown Patient Tobacco Use Status: Current everyday Tobacco user Tobacco use type: Cigarette Cigarettes Per Day: 8 Smoked in Last 30 Days: Yes Use of substances other than those prescribed or required for medical reasons: Yes Substance Use Type: Crack/Cocaine and Marijuana Advance Directives: No Advance Directives Information Provided: No service: No Current occupational status: employed Cognitive needs: No Hearing needs: No Vision needs: No Physical Exam ED Vital Signs: Vital Signs - 24 hr 10/18/22 09:48 10/18/22 09:59 10/18/22 11:04 Pulse Rate 91 89 Respiratory Rate 16 16 18 Blood Pressure 126/77 133/78 Pulse Oximetry 98 98 99 Oxygen Delivery Method Room Air Room Air Room Air BMI result Body Mass Index 18.6 vss Appearance: Alert.? Oriented X3.? No acute distress.? Patient restless. Head: Normocephalic, atraumatic, no step-offs or deformities Eyes: Pupils equal, round and reactive to light.? ENT: Pharynx normal.? Neck: Normal inspection.? Neck supple.? CVS: Normal heart rate and rhythm.? Pulses normal.? Respiratory: No respiratory distress.? Breath sounds normal.? Abdomen: Soft and nontender.? Skin: Skin warm and dry.? Normal skin color.? Normal skin turgor.? Extremities: No lower extremity edema.? No calf ttp. 5/5 strength to bilateral upper and lower extremities Neuro: Oriented X 3.? No motor deficit.? No sensory deficit. CN 2-12 intact Course Course Course Narrative: This case was discussed with my attending it in depth. Reevaluation(s) Reevaluation #1: Patient's CBC within normal limits. Chemistry with low sodium 128, elevated potassium 5.6, normal anion gap, elevated BUN and elevated sugar, this is consistent with hyperglycemia, unlikely that this is HHS or DKA, blood gas unremarkable no signs of acidosis. Will give fluids, and insulin and repeat CMP I suspect electrolyte abnormalities will resolve with fluid hydration. Patient's beta hydroxybutyrate was noted to be 1.37, patient received IV fluids, I suspect that his beta hydroxybutyrate is elevated secondary to starvation ketosis unlikely that this is from diabetic ketoacidosis. Plan is for hospital admission, repeat CMP pending. Time: 14:23 Reevaluation #2: Patient to be admitted to the hospitalist team. Time: 14:55 Medications Administered Discontinued Medications Generic Name Dose Route Start Last Admin Trade Name Freq PRN Reason Stop Dose Admin Sodium Chloride 1,000 mls @ 999 mls/hr 10/18/22 10:00 10/18/22 11:35 Ns IV 10/18/22 11:00 Infused .Q1H1M AMISHA Infusion Sodium Chloride 1,000 mls @ 999 mls/hr 10/18/22 10:30 10/18/22 11:36 Ns IV 10/18/22 11:30 Infused .Q1H1M AMISHA Infusion Sodium Chloride 1,000 mls @ 999 mls/hr 10/18/22 10:30 10/18/22 12:33 Ns IV 10/18/22 11:30 Infused .Q1H1M AMISHA Infusion Insulin Human Regular 10 unit 10/18/22 11:32 10/18/22 11:53 Insulin Regular, Human 100 Unit/Ml 3 Ml Vial IVPUSH 10/18/22 11:33 10 unit ONCE ONE Administration Insulin Human Regular 10 unit 10/18/22 12:05 10/18/22 12:32 Insulin Regular, Human 100 Unit/Ml 3 Ml Vial IVPUSH 10/18/22 12:06 10 unit ONCE ONE Administration Medical Decision Making Medical Decision Making [facility] Narrative: 1017 32-year-old male presents with concerns that his high blood sugar. Poor historian. Agitated on arrival. Physical examination benign. Patient restless however. Concerns for DKA versus HHS. Will rule out electrolyte abnormalities. Other differentials include poorly controlled diabetes. Plan at this time labs, urine, VBG Differential Diagnosis Differential Diagnoses: The differential diagnosis associated with the presentation includes Concerns for DKA versus HHS. Will rule out electrolyte abnormalities. Other differentials include poorly controlled diabetes. Admission/Observation Consideration of admission/observation: Escalation of care including admission/observation considered Likely Lab Data [facility] Lab Attestation statement: I reviewed the patient's lab results. 10/18/22 10:21 10/18/22 10:21 Labs: Lab Results 10/18/22 10/18/22 10/18/22 Range/Units 09:51 10:21 10:21 WBC 6.4 (4.8-10.8) X10*3/uL RBC 4.64 (4.60-5.80) X10*6/uL Hgb 14.0 (14.0-18.0) g/dl Hct 42.3 (42.0-52.0) % MCV 91.2 (80.0-98.0) fL MCH 30.2 (27.0-33.0) pg MCHC 33.1 (31.0-36.0) g/dl RDW 11.8 (11.0-16.0) % Plt Count 230 (160-400) X10*3/uL MPV 11.7 (9.4-12.4) fL Immature Gran % (Auto) 0.3 (0.0-0.4) % Neut % (Auto) 80.0 H (45-73) % Lymph % (Auto) 13.8 L (20-40) % [place] % (Auto) 4.2 (2-11) % Eos % (Auto) 0.9 (0-4) % Baso % (Auto) 0.8 (0-2) % Lymph # (Auto) 0.9 L (1.2-4.9) X10*3/uL [place] # (Auto) 0.3 (0.1-1.2) X10*3/uL Eos # (Auto) 0.1 (0.0-0.4) X10*3/uL Baso # (Auto) 0.1 (0.0-0.2) X10*3/uL Abs Immat Gran (auto) 0.02 (0.00-0.03) X10*3/uL Absolute Neuts (auto) 5.2 (2.0-8.3) x10*3/uL Absolute Nucleated RBC 0.000 (0.0-0.012) X10*3/uL Nucleated RBC % (auto) 0.0 (0.0-0.2) /100WBC VBG pH (7.32-7.43) VBG pCO2 mmHg VBG pO2 mmHg VBG HCO3 (22-26) mmol/L VBG O2 Saturation % VBG Base Excess mmol/L Sodium 128 L (135-145) mmol/L Potassium 5.6 H D (3.3-5.1) mmol/L Chloride 91 L (96-108) mmol/L Carbon Dioxide 23 (22-29) mmol/L Anion Gap 20 (12-20) BUN 23 H (9-16) mg/dL Creatinine 1.18 (0.5-1.4) mg/dL Estim Creat Clear Calc 65.1 Estimated GFR > 60 POC Glucose > 600 H* (60-115) mg/dL Random Glucose 933 H* (60-115) mg/dL Calcium 10.2 (8.4-10.2) mg/dL Magnesium 2.0 (1.6-2.6) mg/dL Total Bilirubin 0.4 (0.0-1.0) mg/dL AST 38 H (5-37) U/L ALT 35 (0-40) U/L Alkaline Phosphatase 119 H (39-117) U/L Total Protein 7.2 (6.5-8.0) g/dL Albumin 3.8 (3.5-5.0) g/dL Beta-Hydroxybutyrate 1.37 H (0.02-0.27) mmol/L COVID-19 (DORINA) (Negative) COVID-19 Clin Com 10/18/22 10/18/22 10/18/22 Range/Units 10:24 10:40 11:54 WBC (4.8-10.8) X10*3/uL RBC (4.60-5.80) X10*6/uL Hgb (14.0-18.0) g/dl Hct (42.0-52.0) % MCV (80.0-98.0) fL MCH (27.0-33.0) pg MCHC (31.0-36.0) g/dl RDW (11.0-16.0) % Plt Count (160-400) X10*3/uL MPV (9.4-12.4) fL Immature Gran % (Auto) (0.0-0.4) % Neut % (Auto) (45-73) % Lymph % (Auto) (20-40) % [place] % (Auto) (2-11) % Eos % (Auto) (0-4) % Baso % (Auto) (0-2) % Lymph # (Auto) (1.2-4.9) X10*3/uL [place] # (Auto) (0.1-1.2) X10*3/uL Eos # (Auto) (0.0-0.4) X10*3/uL Baso # (Auto) (0.0-0.2) X10*3/uL Abs Immat Gran (auto) (0.00-0.03) X10*3/uL Absolute Neuts (auto) (2.0-8.3) x10*3/uL Absolute Nucleated RBC (0.0-0.012) X10*3/uL Nucleated RBC % (auto) (0.0-0.2) /100WBC VBG pH 7.41 (7.32-7.43) VBG pCO2 46 mmHg VBG pO2 67 mmHg VBG HCO3 29 H (22-26) mmol/L VBG O2 Saturation 93.0 % VBG Base Excess 4.1 mmol/L Sodium (135-145) mmol/L Potassium (3.3-5.1) mmol/L Chloride (96-108) mmol/L Carbon Dioxide (22-29) mmol/L Anion Gap (12-20) BUN (9-16) mg/dL Creatinine (0.5-1.4) mg/dL Estim Creat Clear Calc Estimated GFR POC Glucose > 600 H* (60-115) mg/dL Random Glucose (60-115) mg/dL Calcium (8.4-10.2) mg/dL Magnesium (1.6-2.6) mg/dL Total Bilirubin (0.0-1.0) mg/dL AST (5-37) U/L ALT (0-40) U/L Alkaline Phosphatase (39-117) U/L Total Protein (6.5-8.0) g/dL Albumin (3.5-5.0) g/dL Beta-Hydroxybutyrate (0.02-0.27) mmol/L COVID-19 (DORINA) Negative (Negative) COVID-19 Clin Com See Note 10/18/22 10/18/22 Range/Units 13:39 14:16 WBC (4.8-10.8) X10*3/uL RBC (4.60-5.80) X10*6/uL Hgb (14.0-18.0) g/dl Hct (42.0-52.0) % MCV (80.0-98.0) fL MCH (27.0-33.0) pg MCHC (31.0-36.0) g/dl RDW (11.0-16.0) % Plt Count (160-400) X10*3/uL MPV (9.4-12.4) fL Immature Gran % (Auto) (0.0-0.4) % Neut % (Auto) (45-73) % Lymph % (Auto) (20-40) % [place] % (Auto) (2-11) % Eos % (Auto) (0-4) % Baso % (Auto) (0-2) % Lymph # (Auto) (1.2-4.9) X10*3/uL [place] # (Auto) (0.1-1.2) X10*3/uL Eos # (Auto) (0.0-0.4) X10*3/uL Baso # (Auto) (0.0-0.2) X10*3/uL Abs Immat Gran (auto) (0.00-0.03) X10*3/uL Absolute Neuts (auto) (2.0-8.3) x10*3/uL Absolute Nucleated RBC (0.0-0.012) X10*3/uL Nucleated RBC % (auto) (0.0-0.2) /100WBC VBG pH (7.32-7.43) VBG pCO2 mmHg VBG pO2 mmHg VBG HCO3 (22-26) mmol/L VBG O2 Saturation % VBG Base Excess mmol/L Sodium 139 (135-145) mmol/L Potassium 4.2 D (3.3-5.1) mmol/L Chloride 106 (96-108) mmol/L Carbon Dioxide 21 L (22-29) mmol/L Anion Gap 16 (12-20) BUN 21 H (9-16) mg/dL Creatinine 0.82 (0.5-1.4) mg/dL Estim Creat Clear Calc 93.7 Estimated GFR > 60 POC Glucose 443 H* (60-115) mg/dL Random Glucose 419 H* (60-115) mg/dL Calcium 9.7 (8.4-10.2) mg/dL Magnesium (1.6-2.6) mg/dL Total Bilirubin 0.2 (0.0-1.0) mg/dL AST 27 (5-37) U/L ALT 32 (0-40) U/L Alkaline Phosphatase 111 (39-117) U/L Total Protein 7.0 (6.5-8.0) g/dL Albumin 3.6 (3.5-5.0) g/dL Beta-Hydroxybutyrate (0.02-0.27) mmol/L COVID-19 (DORINA) (Negative) COVID-19 Clin Com Core Measures AMI core measures followed: Yes Measure exclusions: not indicated Critical Care Time Critical Care Time Critical Care Time: Yes Total Critical Care Time: 35 Attestation: I attest to this time spent taking care of the patient, obtaining history, physical, reviewing labs, imaging, speaking to my attending, Discharge Plan Discharge Clinical Impression: Acute hyperglycemia Patient Disposition: Still a Patient Prescriptions: No Action pravastatin 10 mg tablet 10 mg PO BEDTIME Qty: 90 0RF insulin lispro 100 unit/mL insulin pen 1 sliding scale dose subcut TIDAC insulin glargine [Lantus Solostar U-100 Insulin] 100 unit/mL (3 mL) insulin pen 24 unit SUBCUT BEDTIME (DME) Reset-O Digital Tato (OUD) Misc See Rx Instructions .MEDSUPPLY Qty: 1 3RF Rx Instructions: As directed (3-4 times a week) 84 days (DME) pen needle, diabetic [BD Blanca 2nd Gen Pen Needle] 32 gauge x 5/32 needle See Rx Instructions .ROUTE .MEDSUPPLY Qty: 50 Rx Instructions: As directed (DME) FreeStyle Eusebio 2 Effort Misc See Rx Instructions .Route Qty: 1 0RF Rx Instructions: As directed
[2022-10-18 10:26] LABS: MANUAL DIFF FLAG NO
[2022-10-18 10:27] LABS: Basophils Absolute Auto 0.1 X10*3/uL (0.0-0.2); Basophils Percent Auto 0.8 % (0-2); Eosinophils Absolute Auto 0.1 X10*3/uL (0.0-0.4); Eosinophils Percent Auto 0.9 % (0-4); Hematocrit 42.3 % (42.0-52.0); Imm Gran Abs Auto 0.02 X10*3/uL (0.00-0.03); Imm Gran Pct Auto 0.3 % (0.0-0.4); Lymphocytes Absolute Auto 0.9 X10*3/uL (1.2-4.9); Lymphocytes Percent Auto 13.8 % (20-40); Mean Corpuscular HGB Conc 33.1 g/dl (31.0-36.0); Mean Corpuscular Hemoglobin 30.2 pg (27.0-33.0); Mean Corpuscular Volume 91.2 fL (80.0-98.0); Mean Platelet Volume 11.7 fL (9.4-12.4); Monocytes Absolute Auto 0.3 X10*3/uL (0.1-1.2); Monocytes Percent Auto 4.2 % (2-11); Neutrophils Absolute Auto 5.2 x10*3/uL (2.0-8.3); Platelet Count 230 X10*3/uL (160-400); Red Blood Count 4.64 X10*6/uL (4.60-5.80); Red Cell Distribution Width 11.8 % (11.0-16.0); White Blood Count 6.4 X10*3/uL (4.8-10.8)
[2022-10-18] MEDS: 0.9 % Sodium Chloride 1,000 ML 999 ML IV ×4 (10:27→15:56)
[2022-10-18 10:33] LABS: VBG Base Excess 4.1 mmol/L; VBG HCO3 29 mmol/L (22-26); VBG pCO2 46 mmHg; VBG pH 7.41 (7.32-7.43); VBG pO2 67 mmHg
[2022-10-18 10:35] LABS: Venous Blood Gas Refer to POC result
--- NOTE | 2022-10-18 10:53 | PC.NURSE ---
pt a&o x4, calm and cooperative. pt appears lethargic and weak. IV placed to RAC, labs drawn, fluids hung per mar. currently resting quietly on stretcher in no apparent distress. vss. wctm
[2022-10-18 11:04] VITALS: BP 133/78; PULSE 89; RESP 18; O2SAT 99
[2022-10-18 11:12] LABS: Alanine Aminotransferase 35 U/L (0-40); Albumin Level 3.8 g/dL (3.5-5.0); Alkaline Phosphatase 119 U/L (39-117); Anion Gap 20 (12-20); Aspartate Amino Transferase 38 U/L (5-37); Beta-Hydroxybutyrate 1.37 mmol/L (0.02-0.27); Bilirubin Total 0.4 mg/dL (0.0-1.0); Blood Urea Nitrogen 23 mg/dL (9-16); Calcium 10.2 mg/dL (8.4-10.2); Carbon Dioxide 23 mmol/L (22-29); Chloride 91 mmol/L (96-108); Creatinine Clr Calc Pharmacy 65.1; Estimated Glomerular Filt Rate > 60; Potassium 5.6 mmol/L (3.3-5.1); Sodium 128 mmol/L (135-145); Total Protein 7.2 g/dL (6.5-8.0)
[2022-10-18 11:12] LABS: COVID-19 Test Negative (Negative); IDNOW Serial# BCCEAD1C
[2022-10-18 11:19] LABS: Glucose Random 933 mg/dL (60-115)
--- NOTE | 2022-10-18 11:41 | ECG_ITS ---
Test Reason : ELECTROLYTE ABNORMALITIES Blood Pressure : / mmHG Vent. Rate : 078 BPM Atrial Rate : 078 BPM P-R Int : 152 ms QRS Dur : 086 ms QT Int : 378 ms P-R-T Axes : 060 064 060 degrees QTc Int : 430 ms Normal sinus rhythm Normal ECG When compared with ECG of 21-JUN-2022 22:45, ST no longer elevated in Anterior leads Nonspecific T wave abnormality no longer evident in Lateral leads Referred By: Ashish Richards Electronically Signed By:RAMIRO WEST MD
[2022-10-18] MEDS: Insulin Regular, Human 100 UNIT/ML 3 ML VIAL 10 UNIT IVPUSH ×2 (11:53→12:32)
--- NOTE | 2022-10-18 11:55 | PC.NURSE ---
recheck poc, still >600. pt medicated per mar
[2022-10-18 12:02] LABS: Glucose, Whole Blood > 600 mg/dL (60-115)
[2022-10-18 13:42] LABS: Glucose, Whole Blood 443 mg/dL (60-115)
--- NOTE | 2022-10-18 14:26 | PHA.MEDREC ---
Pharmacy Consult ? Medication Reconciliation Pharmacy has completed the medication reconciliation.
[2022-10-18 14:54] LABS: Alanine Aminotransferase 32 U/L (0-40); Albumin Level 3.6 g/dL (3.5-5.0); Alkaline Phosphatase 111 U/L (39-117); Anion Gap 16 (12-20); Aspartate Amino Transferase 27 U/L (5-37); Bilirubin Total 0.2 mg/dL (0.0-1.0); Blood Urea Nitrogen 21 mg/dL (9-16); Calcium 9.7 mg/dL (8.4-10.2); Carbon Dioxide 21 mmol/L (22-29); Chloride 106 mmol/L (96-108); Creatinine Clr Calc Pharmacy 93.7; Estimated Glomerular Filt Rate > 60; Glucose Random 419 mg/dL (60-115); Potassium 4.2 mmol/L (3.3-5.1); Sodium 139 mmol/L (135-145)
[2022-10-18 15:04] VITALS: BP 133/84; PULSE 75; RESP 20; TEMP 37; O2SAT 100
[2022-10-18 15:19] LABS: Estimated Average Glucose 349 mg/dL; Hemoglobin A1c % 13.8 %
--- NOTE | 2022-10-18 15:43 | P.HPHOSP_ITS ---
History of Present Illness Date of Service: 10/18/22 Chief Complaint: Hyperglycemia A 32 years old male with PMH of DMI, Depression, drug abuse, noncompliance with medications presents to the hospital feeling tired and anxious. Found to have Hyperglycemia of >900. The patient reports that he hasnt been taking his insulin as scheduled. He might take it twice a week. for the last couple of days feeling overwhelmed, anxious, tired with no energy and his sugar machine reading HI all the time. Denies any fever, chills, cough, urine symptoms, nausea, vomiting , abdominal pain. In ED found to have Glucose of >900 with hyperkalemia and hyponatremia. No evidence of infection. responded to IV insulin and fluids as no GAP or acidosis noted. Admitted for monitoring and better control of Glucose levels. Review of Systems Review of Systems: No fever, chills but reports weakness No chest pain, palpitation No shortness of breath or coughing No abdominal pain, nausea or vomiting No urinary symptoms No any rash or wounds PMFSH Medical History Dental decay Diabetes mellitus type 1, uncontrolled Hyperlipidemia LDL goal <100 Noncompliance Family History Maternal Grandmother Diabetes, type I Surgical History No history of previous surgery Social History Household Members: Family Housing: Apartment Housing Other:: rents a room Alcohol intake: unknown Patient Tobacco Use Status: Current everyday Tobacco user Tobacco use type: Cigarette Cigarettes Per Day: 8 Smoked in Last 30 Days: Yes Use of substances other than those prescribed or required for medical reasons: Yes Substance Use Type: Crack/Cocaine and Marijuana Advance Directives: No Advance Directives Information Provided: No service: No Current occupational status: employed Cognitive needs: No Hearing needs: No Vision needs: No Meds Allergies Allergy/AdvReac Type Severity Reaction Status Date / Time No Known Allergies Allergy Verified 10/09/22 10:08 [No Known Allergies*] Active Medications: Current Medications Acetaminophen (Acetaminophen 325 Mg Tablet) 650 mg PO Q6H PRN PRN Reason: Pain, Mild (Pain Scale 1-3) Enoxaparin Sodium (Enoxaparin Sodium 40 Mg/0.4 Ml Syringe) 40 mg SUBCUT Q24H [facility] Sodium Chloride (Ns) 1,000 mls @ 999 mls/hr IV .Q1H1M [facility] Stop: 10/18/22 16:45 Insulin Glargine (Insulin Glargine,Hum.Rec.Anlog 100 Unit/Ml 10 Ml Vial) 24 unit SUBCUT BEDTIME [facility] Insulin Human Lispro (Insulin Lispro 100 Unit/Ml 3 Ml Vial) 0 unit SUBCUT QIDACHS [facility]; Protocol Ondansetron HCl (Ondansetron Hcl 4 Mg/2 Ml Vial) 4 mg IVPUSH Q8H PRN PRN Reason: Nausea and Vomiting Pharmacy Consult (Consult Rx Perform Med Rec) 1 each MISCELLANE ONCE PRN PRN Reason: Consult order Pravastatin Sodium (Pravastatin Sodium 10 Mg Tablet) 10 mg PO BEDTIME [facility] Sodium Chloride (0.9 % Sodium Chloride Flush 3 Ml Syringe) 3 ml IVFLUSH QSHIFT [facility] Home Medications Medication Instructions Recorded Confirmed Last Taken Type insulin glargine 100 unit/mL (3 24 unit subcut BEDTIME 05/07/22 10/18/22 10/17/22 History mL) subcutaneous pen (Lantus Solostar U-100 Insulin) insulin lispro 100 unit/mL 1 sliding scale dose subcut TIDAC 05/07/22 10/18/22 10/17/22 History subcutaneous pen pen needle, diabetic 32 gauge x #50 ea 08/13/22 10/03/22 Unknown History (BD Blanca 2nd Gen Pen Needle) Physical Exam Vital Signs and Narrative: Vital Signs: Last Vital Signs Temp 98.6 F 10/18/22 15:04 Pulse 75 10/18/22 15:04 Resp 20 10/18/22 15:04 BP 133/84 10/18/22 15:04 Pulse Ox 100 10/18/22 15:04 O2 Del Method Room Air 10/18/22 15:04 BMI result Body Mass Index 18.6 Const: Other: Constitutional : Awake, interactive, not in distress Neck : Normal inspection, Supple Cardiovascular : RRR, no JVP, no lower extremity edema Respiratory : good bilateral air entry, no crackles, wheezes or rhonchi Gastrointestinal: soft, lax, Normal bowel sounds, Non tender Skin : Warm, Dry Neurological : Alert & oriented x3, No focal deficit , Numbness and decrease sensation in LEs Results Labs 10/18/22 10:21 10/18/22 14:16 Labs: Laboratory Results - last 24 hr 10/18/22 10/18/22 10/18/22 09:51 10:21 10:21 MCV 91.2 MCH 30.2 MCHC 33.1 RDW 11.8 Plt Count 230 MPV 11.7 Immature Gran % (Auto) 0.3 Neut % (Auto) 80.0 H Lymph % (Auto) 13.8 L [place] % (Auto) 4.2 Eos % (Auto) 0.9 Baso % (Auto) 0.8 Lymph # (Auto) 0.9 L [place] # (Auto) 0.3 Eos # (Auto) 0.1 Baso # (Auto) 0.1 Abs Immat Gran (auto) 0.02 Absolute Neuts (auto) 5.2 Absolute Nucleated RBC 0.000 Nucleated RBC % (auto) 0.0 VBG pH VBG pCO2 VBG pO2 VBG HCO3 VBG O2 Saturation VBG Base Excess Anion Gap 20 Estim Creat Clear Calc 65.1 Estimated GFR > 60 POC Glucose > 600 H* Random Glucose 933 H* Estimat Average Glucose Hemoglobin A1c % Calcium 10.2 Magnesium 2.0 Total Bilirubin 0.4 AST 38 H ALT 35 Alkaline Phosphatase 119 H Total Protein 7.2 Albumin 3.8 Beta-Hydroxybutyrate 1.37 H COVID-19 ([facility]) COVID-19 Clin [facility] 10/18/22 10/18/22 10/18/22 10:21 10:24 10:40 MCV MCH MCHC RDW Plt Count MPV Immature Gran % (Auto) Neut % (Auto) Lymph % (Auto) [place] % (Auto) Eos % (Auto) Baso % (Auto) Lymph # (Auto) [place] # (Auto) Eos # (Auto) Baso # (Auto) Abs Immat Gran (auto) Absolute Neuts (auto) Absolute Nucleated RBC Nucleated RBC % (auto) VBG pH 7.41 VBG pCO2 46 VBG pO2 67 VBG HCO3 29 H VBG O2 Saturation 93.0 VBG Base Excess 4.1 Anion Gap Estim Creat Clear Calc Estimated GFR POC Glucose Random Glucose Estimat Average Glucose 349 Hemoglobin A1c % 13.8 Calcium Magnesium Total Bilirubin AST ALT Alkaline Phosphatase Total Protein Albumin Beta-Hydroxybutyrate COVID-19 ([facility]) Negative COVID-19 Clin Com See Note 10/18/22 10/18/22 10/18/22 11:54 13:39 14:16 MCV MCH MCHC RDW Plt Count MPV Immature Gran % (Auto) Neut % (Auto) Lymph % (Auto) Mineral % (Auto) Eos % (Auto) Baso % (Auto) Lymph # (Auto) [place] # (Auto) Eos # (Auto) Baso # (Auto) Abs Immat Gran (auto) Absolute Neuts (auto) Absolute Nucleated RBC Nucleated RBC % (auto) VBG pH VBG pCO2 VBG pO2 VBG HCO3 VBG O2 Saturation VBG Base Excess Anion Gap 16 Estim Creat Clear Calc 93.7 Estimated GFR > 60 POC Glucose > 600 H* 443 H* Random Glucose 419 H* Estimat Average Glucose Hemoglobin A1c % Calcium 9.7 Magnesium Total Bilirubin 0.2 AST 27 ALT 32 Alkaline Phosphatase 111 Total Protein 7.0 Albumin 3.6 Beta-Hydroxybutyrate COVID-19 ([facility]) COVID-19 Clin Com Assessment and Plan (1) Acute hyperglycemia: Status: Acute Plan A 32 years old male with PMH of DMI, Depression, drug abuse, noncompliance with medications presents to the hospital feeling tired and anxious. Found to have Hyperglycemia of >900. 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 Quality Stroke Does the patient have a stroke diagnosis?: No VTE Prior VTE?: No VTE Risk Level:: Medical - moderate - high VTE Device Contraindication: Treatment Not Indicated VTE Drug Contraindication: N/A - Med Ordered
[2022-10-18] MEDS: Insulin Glargine,Hum.rec.anlog 100 UNIT/ML 10 ML VIAL 15 UNIT SUBCUT (15:50)
[2022-10-18] MEDS: Enoxaparin Sodium 40 MG/0.4 ML SYRINGE SUBCUT (15:52)
[2022-10-18 17:07] LABS: Glucose, Whole Blood 240 mg/dL (60-115)
[2022-10-18] MEDS: Insulin Lispro 100 UNIT/ML 3 ML VIAL SUBCUT (17:24)
--- NOTE | 2022-10-18 18:21 | PC.NURSE ---
pt sts wants to leave AMA, provider(s) aware.
--- NOTE | 2022-10-30 15:28 | PM.EVENT ---
Event Note Date of Service: 10/30/22 Event Note: Discharge summary Discharge diagnosis Hyperglycemia in type 1 DM with ketosis Neuropathy in LE Hyperkalemia Pseudohyponatremia The patient left against medical advice and refused to wait medical provider to talk to him before leaving. Time Spent With Patient Time: Total time managing care of this patient today ____ minutes.
== END 2022-10-18 19:42 | disposition left against medical advice (07) ==
LOC: HO.ED 14:23 → HO.EDOVER 15:52 → HO.IMC 17:33 → HO.EDOVER 19:40
PROVIDERS: Physician Assistant; Admitting Provider Student in an Organized Health Care Education/Training Program; Emergency Provider Emergency Medicine Emergency Medical Services; Visit Provider Student in an Organized Health Care Education/Training Program
DX: E11.65 Type 2 diabetes mellitus with hyperglycemia (principal); E11.40 Type 2 diabetes mellitus with diabetic neuropathy, unspecified; E78.5 Hyperlipidemia, unspecified; E87.5 Hyperkalemia; Z20.822 Contact with and (suspected) exposure to COVID-19; F17.200 Nicotine dependence, unspecified, uncomplicated; Z79.4 Long term (current) use of insulin; Z91.148 Patient's other noncompliance with medication regimen for other reason; Z71.6 Tobacco abuse counseling
CPT/HCPCS: 36415; 80053; 82010; 82803; 82947; 83036; 83735; 85025; 87635; 93005; 96360; 96361; 96372; 96374; 96375; 96376; 99222; 99284; J1650

== ENCOUNTER → 2022-10-18 11:41 | Outpatient (BNV) | payer OTHER, SELFPAY | PROVIDERS: Emergency Provider Emergency Medicine Emergency Medical Services; Visit Provider Internal Medicine Cardiovascular Disease | DX: E87.8 Other disorders of electrolyte and fluid balance, not elsewhere classified (principal) | CPT/HCPCS: 93010 ==

== ENCOUNTER → 2022-10-18 15:36 | Outpatient (BNV) | payer OTHER, SELFPAY | PROVIDERS: Admitting Provider Student in an Organized Health Care Education/Training Program; Emergency Provider Emergency Medicine Emergency Medical Services; Visit Provider Student in an Organized Health Care Education/Training Program | DX: E10.65 Type 1 diabetes mellitus with hyperglycemia (principal); Z91.148 Patient's other noncompliance with medication regimen for other reason | CPT/HCPCS: 99223; 99499 ==

== ENCOUNTER 2023-02-18 11:04 | Outpatient (AMB) | payer OTHER, SELFPAY ==
--- NOTE | 2023-02-18 11:15 | MHC.OFFVIS ---
Intake Vital Signs 02/18/23 11:18 Height 5 ft 5 in Weight 123 lb 14.397 oz BMI 20.6 BP 132/84 Blood Pressure Location Rt brachial Position Sitting Pulse 76 Pulse Source Pulse Oximeter Intake Visit Reasons: DM1-CONFIRMED Intake Note: Patient present today to follow up on Type 1 Diabetes Mellitus. 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 Random Glucose: 386 mg/dl HgA1C: >14.0% Radio Host Required: No Accompanied by: Self / Same As Patient Allergies No Known Allergies [No Known Allergies*] Allergy (Verified 02/18/23 11:19) Medication List - Last Reconciled 02/18/23 by Luis Baugh MD [employer], OUD (Reset-O Digital Tato (OUD)) As directed (3-4 times a week) 84 days flash glucose scanning reader (iHydroRunStyle Eusebio 2 [place]) As directed insulin glargine (Lantus Solostar U-100 Insulin) 24 units (0.24 mL) subcut BEDTIME insulin lispro 16 - 18 units subcut TIDAC pen needle, diabetic (BD Blanca 2nd Gen Pen Needle) As directed 5 times a day pen needle, diabetic (BD Blanca 2nd Gen Pen Needle) DIRECTED FIVE TIMES A DAY pravastatin 10 mg PO BEDTIME HPI HPI Comments History of Present Illness Details Patient is 33 yo male with DM type 1 diagnosed at age 10 who presents for management of diabetes. , Diabetes medications: Lantus 24 units once a day, Lispro 8 units with meals, 5 units with snacks, 5 units with soda (will add on to meal dose). He will also have a correction plus 2 units for blood sugars over 250, +3 units for blood sugars over 300, +4 units for blood sugars over 350, and + 5 units for blood sugars over 400. Noncompliant with insulin still but states better Eusebio download shows she is using the sensor 22% of the time. Average glucose is 263. Variability is 40.6 16% glucose is in target range 15 % hyperglycemia and 63% very hyperglycemic Symptoms: Cramping in feet Hypoglycemia: once a week. Hyperglycemia:not recently Eye exam: yrs ago needs to make appt Exercise: little Patient states he is not taking his insulin as actively trying to hurt/kill himself because of psychosocial reasons Laboratory Tests 06/01/20 06/01/20 06/01/20 12:30 12:30 12:30 Creatinine 0.98 Estimated GFR > 60 Fasting Glucose 371 H* Hemoglobin A1c % 12.2 Triglycerides 112 Cholesterol 227 LDL Cholesterol Di rect 134 H HDL Cholesterol 71 Microalb/Creat Rat io 06/01/20 12:30 Creatinine Estimated GFR Fasting Glucose Hemoglobin A1c % Triglycerides Cholesterol LDL Cholesterol Di rect HDL Cholesterol Microalb/Creat Rat io 13.1 He complains of right lower extremity numbness and pain on waking [facility] Medical History Dental decay Diabetes mellitus type 1, uncontrolled Hyperlipidemia LDL goal <100 Noncompliance Surgical History No history of previous surgery Family History Maternal Grandmother Diabetes, type I Household Members: Family Housing: Apartment Housing Other:: rents a room Alcohol intake: unknown Patient Tobacco Use Status: Current everyday Tobacco user Tobacco use type: Cigarette Cigarettes Per Day: 8 Substance Use Type: Crack/Cocaine and Marijuana service: No Current occupational status: employed Cognitive needs: No Hearing needs: No Vision needs: No Physical Exam Vital Signs: Last Vital Signs Pulse 76 02/18/23 11:18 BP 132/84 02/18/23 11:18 BMI result Body Mass Index 20.6 Absence of Cushingoid features. Absence of acromegalic features. Neck exam reveals nl size thyroid about 15 gms. No thyroid nodules palpable. No carotid bruits present. Lungs CTA. Heart S1 S2, Reg R/R. No M/R/ G. Skin exam reveals absence of vitiligo or acanthosis nigricans. Abdominal exam reveals Soft NT/ND with NA BS. No organomegaly present. Neck Other: . Extrem Other: Visual exam of foot performed. No ulcerations or open lesions. No onchomycosis, no callouses.Pulses 2 + distally Sensation intact to monofilament exam. Vibratory sensation sensed is intact with 128 Hz tuning fork Results AMB Hemoglobin A1c AMB Hemoglobin A1c > 14.0 % Last Edit by CALOS Ohara on 02/18/23 11:35 Results Reviewed Results Reviewed: Laboratory Last Values Glucose (Clinic) 386 mg/dL (60-115) H* 02/18/23 11:25 Assessment & Plan Assessment & Plan (1) Diabetes mellitus type 1, uncontrolled: Comment: since age 10 Code(s): E10.65 - Type 1 diabetes mellitus with hyperglycemia Plan: This is a 33-year-old male with a history of longstanding type 1 diabetes currently being treated with basal-bolus insulin with poor glycemic control and no known microvascular or macrovascular complications. . Patient was advised to use Eusebio to scanned frequently s. I cannot adjust the insulin regimen today because of lack of data . He is going to make an appointment with the flow manager and residency coordinator and expressed interest in a pump. I did have a extensive discussion with the patient regarding the association of poor glycemic control and complications. Unfortunately his psychosocial issues including drug abuse and depression interfere with him obtaining optimal glycemic control. Was told to follow up with his primary care provider regarding his lower extremity pain Orders: Orders AMB Hemoglobin A1c Today E10.65 - Type 1 diabetes mellitus with hyperglycemia Medications: Changed From insulin lispro 8 units (0.08 mL) subcut TIDAC 15 mL 4RF To insulin lispro 16 - 18 units subcut TIDAC Coding Level of Care Code Est Pt Level 4 (77531) Diagnoses Diabetes mellitus type 1, uncontrolled E10.65
[2023-02-18 11:18] VITALS: BP 132/84; PULSE 76; BMI 20.6
[2023-02-18 11:30] LABS: Glucose, Whole Blood 386 mg/dL (60-115)
== END 2023-02-18 12:23 | disposition home or self-care (01) ==
PROVIDERS: PCP Internal Medicine; Visit Provider Internal Medicine Endocrinology, Diabetes & Metabolism
DX: E10.65 Type 1 diabetes mellitus with hyperglycemia (principal)
CPT/HCPCS: 99214

== ENCOUNTER → 2023-02-18 11:04 | Outpatient (BNVA) | payer OTHER, SELFPAY | PROVIDERS: Visit Provider Internal Medicine Endocrinology, Diabetes & Metabolism | DX: E10.65 Type 1 diabetes mellitus with hyperglycemia (principal); R79.89 Other specified abnormal findings of blood chemistry; Z79.4 Long term (current) use of insulin | CPT/HCPCS: 82947; 83036; 99212 ==

== ENCOUNTER 2023-03-04 14:29 | Emergency (ER) | payer OTHER, SELFPAY ==
[2023-03-04 14:34] VITALS: BP 131/87; PULSE 89; O2SAT 100
[2023-03-04 14:58] VITALS: BP 129/81; PULSE 92; RESP 18; TEMP 36.6; O2SAT 100; BMI 21.6
[2023-03-04 15:08] LABS: MANUAL DIFF FLAG NO
[2023-03-04 15:11] LABS: Appearance Urine Cloudy; Color Urine Yellow; Glucose Urine UA >=1000 mg/dL (Negative); Leukocyte Esterase Urine Small (1+) (Negative); Nitrite Urine Negative (Negative); Specific Gravity - Urine >= 1.030 (1.005-1.025); UMIC TRIGGER UA YES; Urine Blood Trace (Negative); Urine Ketones Negative (Negative); Urine Protein Negative (Neg-Trace)
[2023-03-04 15:16] LABS: Basophils Absolute Auto 0.1 X10*3/uL (0.0-0.2); Basophils Percent Auto 0.9 % (0-2); Eosinophils Absolute Auto 0.1 X10*3/uL (0.0-0.4); Eosinophils Percent Auto 2.1 % (0-4); Hematocrit 43.1 % (42.0-52.0); Hemoglobin 14.3 g/dl (14.0-18.0); Imm Gran Abs Auto 0.04 X10*3/uL (0.00-0.03); Imm Gran Pct Auto 0.7 % (0.0-0.4); Lymphocytes Absolute Auto 1.5 X10*3/uL (1.2-4.9); Lymphocytes Percent Auto 26.6 % (20-40); Mean Corpuscular HGB Conc 33.2 g/dl (31.0-36.0); Mean Corpuscular Hemoglobin 29.2 pg (27.0-33.0); Mean Corpuscular Volume 88.1 fL (80.0-98.0); Mean Platelet Volume 11.1 fL (9.4-12.4); Monocytes Absolute Auto 0.4 X10*3/uL (0.1-1.2); Monocytes Percent Auto 7.1 % (2-11); Neutrophils Absolute Auto 3.6 x10*3/uL (2.0-8.3); Neutrophils Percent Auto 62.6 % (45-73); Platelet Count 271 X10*3/uL (160-400); Red Blood Count 4.89 X10*6/uL (4.60-5.80); Red Cell Distribution Width 12.3 % (11.0-16.0); White Blood Count 5.8 X10*3/uL (4.8-10.8)
[2023-03-04 15:19] LABS: Bacteria Urine Trace (None Seen); Hyaline Casts Urine 0-2 /LPF (0-2); WBC Urine >50 /HPF (0-5)
[2023-03-04 15:21] LABS: Amphetamine Screen Urine Not Detected (Not Detect); Barbiturates, Urine Not Detected (Not Detect); Benzodiazepines Screen Urine Not Detected (Not Detect); Cannabinoid Screen Urine POSITIVE (Not Detect); Cocaine Screen Urine POSITIVE (Not Detect); Fentanyl, urine Not Detected (Not Detect); Opiate Screen Urine Not Detected (Not Detect); Phencyclidine Screen Urine Not Detected (Not Detect)
[2023-03-04 15:24] LABS: COVID-19 Test Negative (Negative); IDNOW Serial# 08D9AD1C
[2023-03-04 15:32] LABS: Alanine Aminotransferase 41 U/L (0-40); Albumin Level 3.7 g/dL (3.5-5.0); Alkaline Phosphatase 101 U/L (39-117); Anion Gap 15 (12-20); Aspartate Amino Transferase 26 U/L (5-37); Bilirubin Total 0.5 mg/dL (0.0-1.0); Blood Urea Nitrogen 10 mg/dL (9-16); Calcium 9.8 mg/dL (8.4-10.2); Carbon Dioxide 28 mmol/L (22-29); Chloride 95 mmol/L (96-108); Creatinine Clr Calc Pharmacy 96.1; Estimated Glomerular Filt Rate > 60; Ethanol < 10 mg/dL; Glucose Random 464 mg/dL (60-115); Potassium 4.1 mmol/L (3.3-5.1); Sodium 134 mmol/L (135-145); Total Protein 7.1 g/dL (6.5-8.0)
[2023-03-04 15:33] LABS: Acetaminophen LAB < 3 mcg/mL (<30); Salicylate < 5.0 mg/dL (15-30)
--- NOTE | 2023-03-04 15:45 | ED_ITS ---
HPI - Psych General Chief Complaint: Psychiatric Symptoms Stated Complaint: DEPRESSION,SI, CALM/COOP PER EMS Time Seen by Provider: 03/04/23 15:40 Source: patient Mode of arrival: EMS Limitations: no limitations History of Present Illness HPI Narrative: Patient comes to the emergency room complaining of depression. Patient admits to cocaine use and marijuana use, no alcohol abuse. Patient states that he does not want to live like this. Patient denies specific SI or plans, no HI. Related Data Home Medications Medication Instructions Recorded Confirmed insulin lispro 100 unit/mL 16 - 18 unit subcut TIDAC 02/18/23 02/18/23 subcutaneous pen Previous Rx's Medication Instructions Recorded [employer], OUD (Reset-O #1 ea 05/08/22 Digital Tato (OUD)) flash glucose scanning reader #1 ea 08/13/22 (FreeStyle Eusebio 2 [place]) pen needle, diabetic 32 gauge x ##150 11/13/22 (BD Blanca 2nd Gen Pen Needle) pen needle, diabetic 32 gauge x #150 ea 11/13/22 (BD Blanca 2nd Gen Pen Needle) insulin glargine 100 unit/mL (3 24 unit (0.24 mL) subcut BEDTIME 12/31/22 mL) subcutaneous pen (Lantus #15 mL Solostar U-100 Insulin) pravastatin 10 mg tablet 10 mg PO BEDTIME #90 tabs 01/04/23 Allergies Allergy/AdvReac Type Severity Reaction Status Date / Time No Known Allergies Allergy Verified 02/18/23 11:19 [No Known Allergies*] Review of Systems 2 Review of Systems: Constitutional : No Weight loss, No Fever, No Chills, No Night Sweats, No Fatigue, No Malaise ENT/Mouth : No Hearing loss, No Ear Pain, No Nasal Congestion, No Sinus Pain, No Hoarseness, No sore throat, No Rhinorrhea, No Swallowing Difficulty Eyes: No Eye Pain, No Swelling, No Redness, No Foreign Body, No Discharge, No Vision Changes Cardiovascular : No Chest Pain, No SOB, No Dyspnea on Exertion, No Orthopnea, No Edema, No Palpitations Respiratory : No Cough, No Sputum, No Wheezing, No Smoke Exposure, No Dyspnea Gastrointestinal : No Nausea, No Vomiting, No Diarrhea, No Constipation, No abdominal Pain, No Hematochezia, No Melena Genitourinary : no irregular bleeding, No Dysuria, No Urinary Frequency, No Hematuria, No Urinary Incontinence, No Urgency, No Flank Pain, No Urinary Flow Changes, No Hesitancy Musculoskeletal : No joint pain, No Myalgias, No Joint Swelling Skin : No Skin Lesions, No rash Neuro : No Weakness, No Numbness, No Paresthesias, No Loss of Consciousness, No Dizziness, No Headache Psych : No Anxiety/Panic, complaining of depression, vague SI, no HI, admits to drug use, cocaine and marijuana Heme/Lymph: No Bruising, No Bleeding,No Lymphadenopathy Endocrine : No Polyuria, No Polydipsia, No Temperature Intolerance [facility] Past Medical History Medical History Noncompliance Dental decay Diabetes mellitus type 1, uncontrolled Hyperlipidemia LDL goal <100 Surgical History No history of previous surgery Family History Family History Maternal Grandmother Diabetes, type I Social History Social History Household Members: Family Housing: Apartment Housing Other:: rents a room Alcohol intake: unknown Patient Tobacco Use Status: Current everyday Tobacco user Tobacco use type: Cigarette Cigarettes Per Day: 8 Smoked in Last 30 Days: Yes Use of substances other than those prescribed or required for medical reasons: Yes Substance Use Type: Crack/Cocaine and Marijuana Advance Directives: No Advance Directives Information Provided: No service: No Current occupational status: employed Cognitive needs: No Hearing needs: No Vision needs: No Physical Exam 2 Vital Signs: Vital Signs: Last Vital Signs Temp 98 F 03/04/23 14:58 Pulse 92 03/04/23 14:58 Resp 18 03/04/23 14:58 BP 129/81 03/04/23 14:58 Pulse Ox 100 03/04/23 14:58 O2 Del Method Room Air 03/04/23 14:58 BMI result Body Mass Index 21.6 Const: Other: Appearance: Alert. Oriented X3. No acute distress. Eyes: Pupils equal, round and reactive to light. ENT: Pharynx normal. Neck: Normal inspection. Neck supple. No lymph nodes noted. No crepitus CVS: Normal heart rate and rhythm. Pulses normal. Normal S1 and S2 Respiratory: No respiratory distress. Breath sounds normal. No Wheezing. No rales Abdomen: Soft and nontender. No rigidity. No distention. Skin: Skin warm and dry. Normal skin color. Normal skin turgor. Extremities: No lower extremity edema. No Lacerations. No Rash Neuro: Oriented X 3. No motor deficit. No sensory deficit. Moving all extremities. No slurred speech. CN 2 through 12 grossly intact Psych: calm, cooperative, normal affect Medications Administered Discontinued Medications Generic Name Dose Route Start Last Admin Trade Name Frevalentin PRN Reason Stop Dose Admin Insulin Human Lispro 10 unit 03/04/23 15:46 03/04/23 16:23 Insulin Lispro 100 Unit/Ml 3 Ml Vial SUBCUT 03/04/23 15:47 10 unit ONCE ONE Administration Medical Decision Making Medical Decision Making [facility] Narrative: My interpretation of labs: Normal hematology, normal chemistry, glucose 464, urine positive for UTI, seems to be recurrent, likely secondary to yeast which is present in the urine, urine toxicology positive for cocaine and marijuana -the care team evaluated the patient, recommended respite in the morning. Patient would like to go home and report to respite in the morning. The care team spoke with the patient's mother who has no safety concerns for the patient is agreeable to take him in. Patient will be discharge, patient agrees with plan. Patient's blood glucose 464, given 10 units of insulin, dropped to 309. Patient was given additional 5 units. Patient asymptomatic Differential Diagnosis Differential Diagnoses: The differential diagnosis associated with the presentation includes (Polysubstance abuse, anxiety, depression) Admission/Observation Consideration of admission/observation: Escalation of care including admission/observation considered (Patient will be on observation on tele getting determine the patient's disposition) Lab Data 03/04/23 15:02 03/04/23 15:02 Labs: Lab Results 03/04/23 03/04/23 03/04/23 Range/Units 15:02 15:03 17:29 WBC 5.8 (4.8-10.8) X10*3/uL RBC 4.89 (4.60-5.80) X10*6/uL Hgb 14.3 (14.0-18.0) g/dl Hct 43.1 (42.0-52.0) % MCV 88.1 (80.0-98.0) fL MCH 29.2 (27.0-33.0) pg MCHC 33.2 (31.0-36.0) g/dl RDW 12.3 (11.0-16.0) % Plt Count 271 (160-400) X10*3/uL MPV 11.1 (9.4-12.4) fL Immature Gran % (Auto) 0.7 H (0.0-0.4) % Neut % (Auto) 62.6 (45-73) % Lymph % (Auto) 26.6 (20-40) % [place] % (Auto) 7.1 (2-11) % Eos % (Auto) 2.1 (0-4) % Baso % (Auto) 0.9 (0-2) % Lymph # (Auto) 1.5 (1.2-4.9) X10*3/uL [place] # (Auto) 0.4 (0.1-1.2) X10*3/uL Eos # (Auto) 0.1 (0.0-0.4) X10*3/uL Baso # (Auto) 0.1 (0.0-0.2) X10*3/uL Abs Immat Gran (auto) 0.04 H (0.00-0.03) X10*3/uL Absolute Neuts (auto) 3.6 (2.0-8.3) x10*3/uL Absolute Nucleated RBC 0.000 (0.0-0.012) X10*3/uL Nucleated RBC % (auto) 0.0 (0.0-0.2) /100WBC Sodium 134 L (135-145) mmol/L Potassium 4.1 (3.3-5.1) mmol/L Chloride 95 L (96-108) mmol/L Carbon Dioxide 28 (22-29) mmol/L Anion Gap 15 (12-20) BUN 10 (9-16) mg/dL Creatinine 0.92 (0.5-1.4) mg/dL Estim Creat Clear Calc 96.1 Estimated GFR > 60 POC Glucose 309 H (60-115) mg/dL Random Glucose 464 H* (60-115) mg/dL Calcium 9.8 (8.4-10.2) mg/dL Total Bilirubin 0.5 (0.0-1.0) mg/dL AST 26 (5-37) U/L ALT 41 H (0-40) U/L Alkaline Phosphatase 101 (39-117) U/L Total Protein 7.1 (6.5-8.0) g/dL Albumin 3.7 (3.5-5.0) g/dL Urine Color Yellow Urine Appearance Cloudy Urine pH 6.0 (5.0-9.0) Ur Specific [place] >= 1.030 H (1.005-1.025) Urine Protein Negative (Neg-Trace) mg/dL Urine Glucose (UA) >=1000 H (Negative) mg/dL Urine Ketones Negative (Negative) mg/dL Urine Blood Trace H (Negative) Urine Nitrite Negative (Negative) Ur Leukocyte Esterase Small (1+) H (Negative) Urine RBC 6-10 H (0-2) /HPF Urine WBC >50 H (0-5) /HPF Ur Squamous Epith Cells 3-5 (0-2) /HPF Urine Bacteria Trace (None Seen) Hyaline Casts 0-2 (0-2) /LPF Urine Yeast Present Salicylates < 5.0 L (15-30) mg/dL Urine Opiates Screen Not Detected (Not Detect) Urine Fentanyl Screen Not Detected (Not Detect) Acetaminophen < 3 (<30) mcg/mL Ur Barbiturates Screen Not Detected (Not Detect) Ur Phencyclidine Scrn Not Detected (Not Detect) Ur Amphetamines Screen Not Detected (Not Detect) U Benzodiazepines Scrn Not Detected (Not Detect) Urine Cocaine Screen POSITIVE H (Not Detect) U Marijuana (THC) Screen POSITIVE H (Not Detect) Ethyl Alcohol < 10 mg/dL COVID-19 ([facility]) Negative (Negative) COVID-19 Clin Com See Note Discharge Plan Discharge Clinical Impression: Depression, Polysubstance abuse, Hyperglycemia due to diabetes mellitus Patient Disposition: Home, Self-Care Instructions: Polysubstance Abuse (ED) Additional Instructions: Please follow-up with your primary care physician tomorrow. If you have any worsening or new symptoms, please return to the emergency room or call 911 Prescriptions: No Action (DME) pen needle, diabetic [BD Blanca 2nd Gen Pen Needle] 32 gauge x 5/32 needle See Rx Instructions .ROUTE .COMPLEX Qty: 150 6RF Dose Instruction: DIRECTED FIVE TIMES A DAY Rx Instructions: DIRECTED FIVE TIMES A DAY (DME) pen needle, diabetic [BD Blanca 2nd Gen Pen Needle] 32 gauge x 5/32 needle See Rx Instructions .Route Qty: 150 6RF Rx Instructions: As directed 5 times a day insulin glargine [Lantus Solostar U-100 Insulin] 100 unit/mL (3 mL) insulin pen 24 unit SUBCUT BEDTIME Qty: 15 4RF pravastatin 10 mg tablet 10 mg PO BEDTIME Qty: 90 0RF (DME) Reset-O Digital Tato (OUD) Misc See Rx Instructions .MEDSUPPLY Qty: 1 3RF Rx Instructions: As directed (3-4 times a week) 84 days (DME) FreeStyle Eusebio 2 [place] Misc See Rx Instructions .Route Qty: 1 0RF Rx Instructions: As directed insulin lispro 100 unit/mL insulin pen 16 - 18 unit subcut TIDAC Interventions: [place]-Suicide Risk Severity Scale Last Done: 03/04/23 16:28
[2023-03-04] MEDS: Insulin Lispro 100 UNIT/ML 3 ML VIAL 10 UNIT SUBCUT (16:23)
[2023-03-04 17:37] LABS: Glucose, Whole Blood 309 mg/dL (60-115)
[2023-03-04] MEDS: Insulin Lispro 100 UNIT/ML 3 ML VIAL SUBCUT (18:02)
--- NOTE | 2023-03-04 21:17 | MHC.CARE ---
T/W sent a referral to [facility] for ACCS. T/W followed up with [facility] to confirm they received the referral and they said that they would follow-up with the pt.
== END 2023-03-04 18:31 | disposition home or self-care (01) ==
PROVIDERS: Emergency Medicine Emergency Medical Services; Emergency Provider Emergency Medicine; PCP Internal Medicine
DX: F33.1 Major depressive disorder, recurrent, moderate (principal); R45.851 Suicidal ideations; F17.210 Nicotine dependence, cigarettes, uncomplicated; E11.65 Type 2 diabetes mellitus with hyperglycemia; Z11.52 Encounter for screening for COVID-19; Z20.822 Contact with and (suspected) exposure to COVID-19; Z79.4 Long term (current) use of insulin; Z79.899 Other long term (current) drug therapy; Z71.6 Tobacco abuse counseling
CPT/HCPCS: 80053; 80143; 80179; 80307; 81001; 82947; 85025; 87635; 99284; S9485

== ENCOUNTER 2023-03-18 10:52 | Outpatient (REF) | payer OTHER, SELFPAY ==
[2023-03-18 12:39] LABS: Cholesterol 258 mg/dL (<200); HDL Cholesterol 95 mg/dL (>40); LDL Cholesterol Calculated 148 mg/dL (<100); Triglycerides 78 mg/dL (<150)
[2023-03-18 12:52] LABS: HBsAGNum1 0.36 S/CO (0.00-0.99); Hepatitis B Surface Antigen Negative (Negative)
[2023-03-18 12:56] LABS: TSH reflex Free T4 6.61 uIU/mL (0.32-4.0)
[2023-03-18 13:08] LABS: HBS Num1 19.41 mIU/mL (0-7.99); HBc Num1 0.04 S/CO (0.00-0.79); Hepatitis A Antibody IgM 0.14 Index (0-0.79); Hepatitis B Core Antibody Nonreactive (Nonreactive); ~HepC Num1 0.15 S/CO (0.00-0.79); ~Hepatitis A Antibody IgM Nonreactive (Nonreactive); ~Hepatitis B Surface Antibody REACTIVE (Nonreactive); ~Hepatitis C Antibody Nonreactive (Nonreactive)
[2023-03-18 14:13] LABS: Free T4 (Free Thyroxine) 0.81 ng/dL (0.71-1.85)
== END 2023-03-18 10:53 | disposition home or self-care (01) ==
LOC: HO.LAB 10:52
PROVIDERS: Visit Provider Nurse Practitioner Family
DX: E78.5 Hyperlipidemia, unspecified (principal); R79.89 Other specified abnormal findings of blood chemistry
CPT/HCPCS: 36415; 80061; 84439; 84443; 86704; 86706; 86709; 86803; 87340

== ENCOUNTER 2023-04-01 08:47 | Outpatient (AMB) | payer OTHER, SELFPAY ==
--- NOTE | 2023-04-01 08:48 | MHC.PC.OV ---
Vital Signs 04/01/23 08:51 Height 5 ft 5 in Weight 114 lb 6 oz BMI 19.0 BP 124/78 Blood Pressure Location Lt brachial Position Sitting Pulse 74 Pulse Source Pulse Oximeter Pulse Oximetry (%) 97 Oxygen Delivery Method Room Air Intake Visit Reasons: abnormal labs Intake Note: Patient is here to follow up on abnormal labs. 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: Not Required per policy Accompanied by: Self / Same As Patient Allergies No Known Allergies [No Known Allergies*] Allergy (Verified 04/01/23 09:26) Medication List - Last Reconciled 04/01/23 by Ryland Miller MD [employer], OUD (Reset-O Digital Tato (OUD)) As directed (3-4 times a week) 84 days flash glucose scanning reader (FreeStyle Eusebio 2 [place]) As directed insulin glargine (Lantus Solostar U-100 Insulin) 24 units (0.24 mL) subcut BEDTIME insulin lispro 16 - 18 units subcut TIDAC pen needle, diabetic (BD [place] 2nd Gen Pen Needle) As directed 5 times a day pen needle, diabetic (BD Blanca 2nd Gen Pen Needle) DIRECTED FIVE TIMES A DAY pravastatin 10 mg PO BEDTIME Tobacco use date assessed: 04/01/23 Dental Screening Dental Screen Date: 04/01/23 Did you have a dental visit in the last 12 months?: No Did you have a dental problem in the last 6 months where you did not have access to dental care?: No Was dental information given to patient?: No HPI abnormal labs HPI Details 33-year-old male presents to the office for a follow-up appointment. He is transferring his care to my service as his primary care provider has left the practice. Patient gives a diagnosis of type 1 diabetes. He was on insulin pump but now is on the combination of long-acting and short-acting insulin. Patient is very noncompliant with the medication. He forgets to take his medications on a lot of occasions. He is disabled due to neuropathy in his right and left leg. Does not work. Patient also stopped taking the statins due to insurance coverage issues. Patient continues to actively abuse cocaine. He is awaiting to go to a detox facility. He smokes crack cocaine at least twice a week. He lives with his parents. [facility] Medical History (Updated 04/01/23 @ 09:32 by Ryland Miller MD) Nicotine dependence MDD (major depressive disorder), severe Cocaine use disorder Noncompliance Dental decay Diabetes mellitus type 1, uncontrolled Hyperlipidemia LDL goal <100 Surgical History No history of previous surgery Family History Maternal Grandmother Diabetes, type I Social History Household Members: Family Housing: Apartment Housing Other:: rents a room Alcohol intake: never Patient Tobacco Use Status: Current everyday Tobacco user Tobacco use type: Cigarette Cigarettes Per Day: 5 e-Cigarette/Vaping Use: Never Used Second Hand Smoke Exposure: Yes Substance Use Type: Crack/Cocaine and Marijuana service: No Current occupational status: employed Cognitive needs: No Hearing needs: No Vision needs: No Questionnaire PHQ-9 Over the last 2 weeks, how often have you been bothered by any of the following problems? 1. Little interest or pleasure in doing things: not at all 2. Feeling down, depressed, or hopeless: several days 3. Trouble falling or staying asleep, or sleeping too much: several days 4. Feeling tired or having little energy: nearly every day 5. Poor appetite or overeating: not at all 6. Feeling bad about yourself - or that you are a failure or have let yourself or your family down: several days 7. Trouble concentrating on things, such as reading the newspaper or watching television: not at all 8. Moving or speaking so slowly that other people could have noticed. Or the opposite - being so fidgety or restless that you have been moving around a lot more than usual: not at all 9. Thoughts that you would be better off or of hurting yourself in some way: several days Total score: 7 Source: Developed by Drs. Luis Silva, Isabelle Roca, Grabiel Mario and colleagues, with an educational italo from [employer]. Thrive Questionnaire Date Thrive assessed: 04/01/23 I am a: Patient What is your living situation today?: I have a steady place to live Within the past 12 months, did the food you bought not last and you didn't have the money to get more?: Never true Within the past 12 months, did you worry whether your food would run out before you got money to buy more?: Never true Do you have trouble paying for medicines?: No Do you have trouble getting transportation to medical appointments?: No Do you have trouble paying your heating and electricity bill?: No Do you have trouble taking care of your child, family member or friend?: No Do you have trouble with day-to-day activities such as bathing, preparing meals, shopping, managing finances, etc.?: No Are you currently unemployed and looking for a job?: No Are you interested in more education?: No Currently or been in a relationship where the following occur: no concerns reported AUDIT C Alcohol Use Questionnaire (AUDIT-C) 1. How often do you have a drink containing alcohol?: Never Total Score: 0 EMMA-7 AMB Questionnaire EMMA-7 Date EMMA - 7 assessed: 04/01/23 Feeling nervous, anxious, or on edge: 1 = Several days Not being able to stop or control worryin = Not at all Worrying too much about different things: 0 = Not at all Trouble relaxin = Not at all Being so restless that it is hard to sit still: 1 = Several days Becoming easily annoyed or irritable: 1 = Several days Feeling afraid as if something awful might happen: 0 = Not at all Total EMMA-7 score (0-4 normal; 5-9 mild; 10-14 moderate; 15-21 severe): 3 Source: Developed by Drs. Luis Silva, Isabelle Roca, Grabiel Mario and colleagues, with an educational italo from [employer]. Physical exam (Primary Care) Vital Signs: Last Vital Signs Pulse 74 04/01/23 08:51 BP 124/78 04/01/23 08:51 Pulse Ox 97 04/01/23 08:51 Oxygen Delivery Method Room Air 04/01/23 08:51 BMI result Body Mass Index 19.0 Tobacco/Smoking Status: Tobacco use Status Tobacco use date assessed 04/01/23 04/01/23 08:52 Patient Tobacco Use Status Current everyday Tobacco 04/01/23 08:55 Tobacco use type Cigarette 04/01/23 08:55 e-Cigarette/Vaping Use Never Used 04/01/23 08:52 PHQ-9: PHQ-9 Score PHQ-9: Total score 7 04/01/23 08:58 Thrive Assessment: Date of Thrive Assessment Date Thrive assessed 04/01/23 04/01/23 08:52 Currently or been in a relationship where the following occur: no concerns reported Const General: cooperative and healthy appearing Nutritional Appearance: well nourished Orientation/consciousness: patient oriented x3 Limitations: no limitations HENMT Head: Yes normal to inspection Eyes General: appearance normal, both eyes and all related structures Neck Neck: Yes normal visual inspection Chest Chest palpation & inspection: normal palpation of entire chest wall Resp Effort & Inspection: normal respiratory effort Neuro General: patient oriented x3 Assessment and Plan Assessment & Plan (1) Cocaine use disorder: Code(s): F14.10 - Cocaine abuse, uncomplicated Plan: Active cocaine use. Patient is awaiting to go to the detox clinic. (2) Nicotine dependence: Code(s): F17.200 - Nicotine dependence, unspecified, uncomplicated (3) MDD (major depressive disorder), severe: Comment: Continues with depressed mood, somewhat improved. No SI. Code(s): F32.2 - Major depressive disorder, single episode, severe without psychotic features Plan: Currently not taking any antidepressants. (4) Diabetes mellitus type 1, uncontrolled: Comment: since age 10 Code(s): E10.65 - Type 1 diabetes mellitus with hyperglycemia Plan: Patient is being very noncompliant. He has not checking his sugars nor is he taking the insulin appropriately. (5) Hyperlipidemia LDL goal <100: Code(s): E78.5 - Hyperlipidemia, unspecified Plan: Pravastatin to be changed to atorvastatin. Orders: Orders Influenza [id number] Immunization Today Z23 - Encounter for immunization Medications: New flu vacc [id number] 6mos up(PF) 0.5 mL IM ONCE 0.5 mL 0RF Z23 - Encounter for immunization Coding Level of Care Code Est Pt Level 4 (02022) Diagnoses Cocaine use disorder F14.10 Nicotine dependence F17.200 MDD (major depressive disorder), severe F32.2 Diabetes mellitus type 1, uncontrolled E10.65 Hyperlipidemia LDL goal <100 E78.5
[2023-04-01 08:51] VITALS: BP 124/78; PULSE 74; O2SAT 97; BMI 19.0
== END 2023-04-01 09:35 | disposition home or self-care (01) ==
PROVIDERS: PCP Internal Medicine; Visit Provider Internal Medicine
DX: E10.65 Type 1 diabetes mellitus with hyperglycemia (principal); F14.10 Cocaine abuse, uncomplicated; F32.2 Major depressive disorder, single episode, severe without psychotic features; F17.210 Nicotine dependence, cigarettes, uncomplicated; E78.5 Hyperlipidemia, unspecified
CPT/HCPCS: 99214

== ENCOUNTER 2023-04-20 19:19 | Emergency (ER) | payer OTHER, SELFPAY ==
[2023-04-20 19:35] VITALS: BP 142/91; BP 160/120; PULSE 95; RESP 16; TEMP 36.9; O2SAT 100; O2SAT 99; BMI 18.8
--- NOTE | 2023-04-20 19:37 | ED_ITS ---
HPI - General Adult General Chief complaint: General Medical Stated complaint: 7/10 leg pain, tingling in feet, hx of type 1 diab Time Seen by Provider: 04/20/23 19:31 Source: patient Mode of arrival: EMS Limitations: no limitations History of Present Illness HPI narrative: Patient type 1 diabetic since age 10 on Lantus insulin a.m. and Humalog by sliding scale for unknown reason patient did not take his insulin after morning dose yesterday says just lot of stress also complaining of ongoing pain in the lower extremities specially at nighttime from neuropathy denies any significant depression or suicidal feeling no vomiting no abdominal pain no nausea no fever no chills Related Data Home Medications Medication Instructions Recorded Confirmed insulin lispro 100 unit/mL 16 - 18 unit subcut TIDAC 02/18/23 02/18/23 subcutaneous pen Previous Rx's Medication Instructions Recorded digital therapeutics, OUD (Reset-O #1 ea 05/08/22 Digital Tato (OUD)) flash glucose scanning reader #1 ea 08/13/22 (FreeStyle Eusebio 2 [place]) pen needle, diabetic 32 gauge x ##150 11/13/22 5/32 (BD Blanca 2nd Gen Pen Needle) pen needle, diabetic 32 gauge x #150 ea 11/13/22 5/32 (BD Blanca 2nd Gen Pen Needle) insulin glargine 100 unit/mL (3 24 unit (0.24 mL) subcut BEDTIME 12/31/22 mL) subcutaneous pen (Lantus #15 mL Solostar U-100 Insulin) atorvastatin 20 mg tablet 20 mg PO BEDTIME #90 tabs 04/01/23 gabapentin 300 mg capsule 300 mg PO BEDTIME #90 caps 04/20/23 Allergies Allergy/AdvReac Type Severity Reaction Status Date / Time No Known Allergies Allergy Verified 04/01/23 09:26 [No Known Allergies*] Review of Systems 2 Review of Systems: Yes all other systems are reviewed and are negative PMFSH Past Medical History Medical History Nicotine dependence MDD (major depressive disorder), severe Cocaine use disorder Noncompliance Dental decay Diabetes mellitus type 1, uncontrolled Hyperlipidemia LDL goal <100 Surgical History No history of previous surgery Family History Family History Maternal Grandmother Diabetes, type I Social History Social History Household Members: Family Housing: Apartment Housing Other:: rents a room Alcohol intake: never Patient Tobacco Use Status: Current everyday Tobacco user Tobacco use type: Cigarette Cigarettes Per Day: 5 Smoked in Last 30 Days: Yes e-Cigarette/Vaping Use: Never Used Second Hand Smoke Exposure: Yes Use of substances other than those prescribed or required for medical reasons: Yes Substance Use Type: Marijuana Substance Use Frequency: Occasionally Advance Directives: No Advance Directives Information Provided: No service: No Current occupational status: employed Cognitive needs: No Hearing needs: No Vision needs: No Physical Exam ED Vital Signs: Vital Signs - 24 hr 04/20/23 19:35 04/20/23 19:52 04/20/23 22:00 Temperature 98.4 F 98.9 F 98.0 F Pulse Rate 95 89 95 Respiratory Rate 16 16 16 Blood Pressure 142/91 H 135/94 H 128/85 Pulse Oximetry 100 97 97 Oxygen Delivery Method Room Air Room Air Room Air BMI result Body Mass Index 18.8 Appearance: Alert. Oriented X3. No acute distress. Eyes: No pallor or icterus ENT: Pharynx normal. Oral Mucosa moist Neck: Normal inspection. Neck supple. CVS: Normal heart rate and rhythm. Pulses normal. Respiratory: No respiratory distress. Equal air entry bilateral, Abdomen: Soft and nontender. Bowel sounds are present, Skin: Skin warm and dry. Normal skin color. Normal skin turgor. Extremities: No lower extremity edema. No calf tenderness Neuro: Oriented X 3. No motor deficit. Decreased sensation to light touch and pinprick in lower extremity bilaterally Medications Administered Discontinued Medications Generic Name Dose Route Start Last Admin Trade Name Freq PRN Reason Stop Dose Admin Sodium Chloride 1,000 mls @ 999 mls/hr 04/20/23 19:36 04/20/23 21:02 Ns IV 04/20/23 20:36 Infused .Q1H1M ONE Infusion Insulin Glargine 20 unit 04/20/23 20:45 04/20/23 21:02 Insulin Glargine,Hum.Rec.Anlog 100 Unit/Ml 10 Ml Vial SUBCUT 04/20/23 20:46 20 unit ONCE ONE Administration Insulin Human Regular 10 unit 04/20/23 19:38 04/20/23 19:55 Insulin Regular, Human 100 Unit/Ml 3 Ml Vial IVPUSH 04/20/23 19:39 10 unit ONCE ONE Administration Medical Decision Making Medical Decision Making [facility] Narrative: Patient hyperglycemia type 1 diabetes nonketotic improved after IV hydration and insulin patient educated will take his insulin on time advised started gabapentin and follow with hides soaker per sugar at the time of discharge was 214 Differential Diagnosis Differential Diagnoses: The differential diagnosis associated with the presentation includes Diabetic ketoacidosis/hyperglycemia cellulitis peripheral neuropathy Lab Data [facility] Lab Attestation statement: I reviewed the patient's lab results. 04/20/23 19:46 04/20/23 19:46 Labs: Lab Results 04/20/23 04/20/23 04/20/23 Range/Units 19:34 19:46 19:50 WBC 5.9 (4.8-10.8) X10*3/uL RBC 4.97 (4.60-5.80) X10*6/uL Hgb 14.5 (14.0-18.0) g/dl Hct 43.3 (42.0-52.0) % MCV 87.1 (80.0-98.0) fL MCH 29.2 (27.0-33.0) pg MCHC 33.5 (31.0-36.0) g/dl RDW 11.8 (11.0-16.0) % Plt Count 243 (160-400) X10*3/uL MPV 11.3 (9.4-12.4) fL Immature Gran % (Auto) 0.5 H (0.0-0.4) % Neut % (Auto) 60.1 (45-73) % Lymph % (Auto) 30.2 (20-40) % Forest % (Auto) 6.1 (2-11) % Eos % (Auto) 2.2 (0-4) % Baso % (Auto) 0.9 (0-2) % Lymph # (Auto) 1.8 (1.2-4.9) X10*3/uL Forest # (Auto) 0.4 (0.1-1.2) X10*3/uL Eos # (Auto) 0.1 (0.0-0.4) X10*3/uL Baso # (Auto) 0.1 (0.0-0.2) X10*3/uL Abs Immat Gran (auto) 0.03 (0.00-0.03) X10*3/uL Absolute Neuts (auto) 3.5 (2.0-8.3) x10*3/uL Absolute Nucleated RBC 0.000 (0.0-0.012) X10*3/uL Nucleated RBC % (auto) 0.0 (0.0-0.2) /100WBC VBG pH 7.40 (7.32-7.43) VBG pCO2 41 mmHg VBG pO2 50 mmHg VBG HCO3 26 (22-26) mmol/L VBG O2 Saturation 82.0 % VBG Base Excess 1.3 mmol/L Sodium 132 L (135-145) mmol/L Potassium 4.3 (3.3-5.1) mmol/L Chloride 94 L (96-108) mmol/L Carbon Dioxide 23 (22-29) mmol/L Anion Gap 19 (12-20) BUN 10 (9-16) mg/dL Creatinine 1.20 (0.5-1.4) mg/dL Estim Creat Clear Calc 66.0 Estimated GFR > 60 POC Glucose > 600 H* (60-115) mg/dL Random Glucose 686 H* (60-115) mg/dL Calcium 9.4 (8.4-10.2) mg/dL Magnesium 1.8 (1.6-2.6) mg/dL Total Bilirubin 0.4 (0.0-1.0) mg/dL AST 24 (5-37) U/L ALT 37 (0-40) U/L Alkaline Phosphatase 107 (39-117) U/L Total Protein 7.1 (6.5-8.0) g/dL Albumin 3.6 (3.5-5.0) g/dL Beta-Hydroxybutyrate 0.13 (0.02-0.27) mmol/L 04/20/23 04/20/23 Range/Units 20:31 22:06 WBC (4.8-10.8) X10*3/uL RBC (4.60-5.80) X10*6/uL Hgb (14.0-18.0) g/dl Hct (42.0-52.0) % MCV (80.0-98.0) fL MCH (27.0-33.0) pg MCHC (31.0-36.0) g/dl RDW (11.0-16.0) % Plt Count (160-400) X10*3/uL MPV (9.4-12.4) fL Immature Gran % (Auto) (0.0-0.4) % Neut % (Auto) (45-73) % Lymph % (Auto) (20-40) % Forest % (Auto) (2-11) % Eos % (Auto) (0-4) % Baso % (Auto) (0-2) % Lymph # (Auto) (1.2-4.9) X10*3/uL Forest # (Auto) (0.1-1.2) X10*3/uL Eos # (Auto) (0.0-0.4) X10*3/uL Baso # (Auto) (0.0-0.2) X10*3/uL Abs Immat Gran (auto) (0.00-0.03) X10*3/uL Absolute Neuts (auto) (2.0-8.3) x10*3/uL Absolute Nucleated RBC (0.0-0.012) X10*3/uL Nucleated RBC % (auto) (0.0-0.2) /100WBC VBG pH (7.32-7.43) VBG pCO2 mmHg VBG pO2 mmHg VBG HCO3 (22-26) mmol/L VBG O2 Saturation % VBG Base Excess mmol/L Sodium (135-145) mmol/L Potassium (3.3-5.1) mmol/L Chloride (96-108) mmol/L Carbon Dioxide (22-29) mmol/L Anion Gap (12-20) BUN (9-16) mg/dL Creatinine (0.5-1.4) mg/dL Estim Creat Clear Calc Estimated GFR POC Glucose 394 H* 214 H (60-115) mg/dL Random Glucose (60-115) mg/dL Calcium (8.4-10.2) mg/dL Magnesium (1.6-2.6) mg/dL Total Bilirubin (0.0-1.0) mg/dL AST (5-37) U/L ALT (0-40) U/L Alkaline Phosphatase (39-117) U/L Total Protein (6.5-8.0) g/dL Albumin (3.5-5.0) g/dL Beta-Hydroxybutyrate (0.02-0.27) mmol/L Discharge Plan Discharge Clinical Impression: Diabetes mellitus type 1, uncontrolled, Diabetic neuropathy Patient Disposition: Home, Self-Care Instructions: Diabetic Peripheral Neuropathy (ED), Diabetic Hyperglycemia (ED) Additional Instructions: Drink plenty of fluids Take insulin on time as prescribed by your PCP Gabapentin daily at nighttime for pain in your legs Follow-up with hides soaker for further follow-up Prescriptions: New gabapentin 300 mg capsule 300 mg PO BEDTIME Qty: 90 0RF No Action (DME) pen needle, diabetic [BD Blanca 2nd Gen Pen Needle] 32 gauge x 5/32 needle See Rx Instructions .ROUTE .COMPLEX Qty: 150 6RF Dose Instruction: DIRECTED FIVE TIMES A DAY Rx Instructions: DIRECTED FIVE TIMES A DAY (DME) pen needle, diabetic [BD Blanca 2nd Gen Pen Needle] 32 gauge x 5/32 needle See Rx Instructions .Route Qty: 150 6RF Rx Instructions: As directed 5 times a day insulin glargine [Lantus Solostar U-100 Insulin] 100 unit/mL (3 mL) insulin pen 24 unit SUBCUT BEDTIME Qty: 15 4RF atorvastatin 20 mg tablet 20 mg PO BEDTIME Qty: 90 1RF (DME) Reset-O Digital Tato (OUD) Misc See Rx Instructions .MEDSUPPLY Qty: 1 3RF Rx Instructions: As directed (3-4 times a week) 84 days (DME) FreeStyle Eusebio 2 [place] Misc See Rx Instructions .Route Qty: 1 0RF Rx Instructions: As directed insulin lispro 100 unit/mL insulin pen 16 - 18 unit subcut TIDAC Referrals: Martin Alexandre MD [Physician] - 2 weeks
[2023-04-20 19:40] LABS: Glucose, Whole Blood > 600 mg/dL (60-115)
[2023-04-20 19:51] LABS: MANUAL DIFF FLAG NO
[2023-04-20 19:52] VITALS: BP 135/94; PULSE 89; RESP 16; TEMP 37.2; O2SAT 97
[2023-04-20 19:52] LABS: Basophils Absolute Auto 0.1 X10*3/uL (0.0-0.2); Basophils Percent Auto 0.9 % (0-2); Eosinophils Absolute Auto 0.1 X10*3/uL (0.0-0.4); Eosinophils Percent Auto 2.2 % (0-4); Hematocrit 43.3 % (42.0-52.0); Hemoglobin 14.5 g/dl (14.0-18.0); Imm Gran Abs Auto 0.03 X10*3/uL (0.00-0.03); Imm Gran Pct Auto 0.5 % (0.0-0.4); Lymphocytes Absolute Auto 1.8 X10*3/uL (1.2-4.9); Lymphocytes Percent Auto 30.2 % (20-40); Mean Corpuscular HGB Conc 33.5 g/dl (31.0-36.0); Mean Corpuscular Hemoglobin 29.2 pg (27.0-33.0); Mean Corpuscular Volume 87.1 fL (80.0-98.0); Mean Platelet Volume 11.3 fL (9.4-12.4); Monocytes Absolute Auto 0.4 X10*3/uL (0.1-1.2); Monocytes Percent Auto 6.1 % (2-11); Neutrophils Absolute Auto 3.5 x10*3/uL (2.0-8.3); Neutrophils Percent Auto 60.1 % (45-73); Platelet Count 243 X10*3/uL (160-400); Red Blood Count 4.97 X10*6/uL (4.60-5.80); Red Cell Distribution Width 11.8 % (11.0-16.0); White Blood Count 5.9 X10*3/uL (4.8-10.8)
[2023-04-20] MEDS: 0.9 % Sodium Chloride 1,000 ML 999 ML IV (19:54)
[2023-04-20] MEDS: Insulin Regular, Human 100 UNIT/ML 3 ML VIAL 10 UNIT IVPUSH (19:55)
[2023-04-20 19:57] LABS: Venous Blood Gas Refer to POC result
[2023-04-20 19:57] LABS: VBG Base Excess 1.3 mmol/L; VBG HCO3 26 mmol/L (22-26); VBG pCO2 41 mmHg; VBG pO2 50 mmHg
--- NOTE | 2023-04-20 20:02 | PC.NURSE ---
Pt presents to ED via EMS for high blood sugar and leg pain. Pt is a type one diabetic who did not take his insulin today. Pt has not been able to eat anything in 24 hours. Per EMS, their POC meter read High. Pt reports nausea but denies vomiting. Pt reporting 7/10 bilateral leg pain which has been ging on for a year (likely diabetic neuropathy) that has gotten worse today. When I asked why pt did not take his insulin today, pt stated he's at a point where he just wants to give up. Pt stated he has been having family trouble. Pt denied a plan, does not want to talk o someone here about what is going on, states that if he does, he'll just focus on it more. Dr Cotto has seen the pt 20g IV in the left AC, labs drawn and sent. Pt medicated per MAY.
[2023-04-20 20:06] LABS: Beta-Hydroxybutyrate 0.13 mmol/L (0.02-0.27)
[2023-04-20 20:17] LABS: Alanine Aminotransferase 37 U/L (0-40); Albumin Level 3.6 g/dL (3.5-5.0); Alkaline Phosphatase 107 U/L (39-117); Anion Gap 19 (12-20); Aspartate Amino Transferase 24 U/L (5-37); Bilirubin Total 0.4 mg/dL (0.0-1.0); Blood Urea Nitrogen 10 mg/dL (9-16); Calcium 9.4 mg/dL (8.4-10.2); Carbon Dioxide 23 mmol/L (22-29); Chloride 94 mmol/L (96-108); Estimated Glomerular Filt Rate > 60; Glucose Random 686 mg/dL (60-115); Magnesium 1.8 mg/dL (1.6-2.6); Potassium 4.3 mmol/L (3.3-5.1); Sodium 132 mmol/L (135-145); Total Protein 7.1 g/dL (6.5-8.0)
[2023-04-20 20:35] LABS: Glucose, Whole Blood 394 mg/dL (60-115)
[2023-04-20] MEDS: Insulin Glargine,Hum.rec.anlog 100 UNIT/ML 10 ML VIAL 20 UNIT SUBCUT (21:02)
[2023-04-20 22:00] VITALS: BP 128/85; PULSE 95; RESP 16; TEMP 36.7; O2SAT 97
[2023-04-20 22:10] LABS: Glucose, Whole Blood 214 mg/dL (60-115)
[2023-04-20] MEDS: Gabapentin 300 MG CAPSULE PO (22:20)
[2023-04-21 06:37] LABS: Glucose, Whole Blood > 600 mg/dL (60-115)
== END 2023-04-20 22:24 | disposition home or self-care (01) ==
PROVIDERS: Emergency Provider Internal Medicine
DX: E10.40 Type 1 diabetes mellitus with diabetic neuropathy, unspecified (principal); M79.605 Pain in left leg; M79.604 Pain in right leg; Z79.899 Other long term (current) drug therapy; Z79.4 Long term (current) use of insulin
CPT/HCPCS: 36415; 80053; 82010; 82803; 82947; 83735; 85025; 96361; 96374; 99284

== ENCOUNTER 2023-05-01 13:01 | Outpatient (AMB) | payer OTHER, SELFPAY ==
--- NOTE | 2023-05-01 13:02 | A.OFFPC_ITS ---
Vital Signs 05/01/23 13:05 Height 5 ft 6 in Weight 122 lb BMI 19.7 BP 120/76 Blood Pressure Location Rt brachial Position Sitting Intake Visit Reasons: Medication review for sleeping Intake Note: Patient is here to follow up on medication review for sleeping. Bond Trader Required: No Technology Support Analyst: Not Required per policy Accompanied by: Self / Same As Patient Allergies No Known Allergies [No Known Allergies*] Allergy (Verified 05/02/23 07:07) Medication List - Last Reconciled 05/02/23 by Ryland Miller MD atorvastatin 20 mg PO BEDTIME digital therapeutics, OUD (Reset-O Digital Tato (OUD)) As directed (3-4 times a week) 84 days flash glucose scanning reader (FreeStyle Eusebio 2 [place]) As directed gabapentin 300 mg PO BEDTIME insulin glargine (Lantus Solostar U-100 Insulin) 24 units (0.24 mL) subcut BEDTIME insulin lispro 16 - 18 units subcut TIDAC pen needle, diabetic (BD Blanca 2nd Gen Pen Needle) As directed 5 times a day pen needle, diabetic (BD Blanca 2nd Gen Pen Needle) DIRECTED FIVE TIMES A DAY trazodone 100 mg PO BEDTIME PRN 90 days Tobacco use date assessed: 05/01/23 Dental Screening Dental Screen Date: 05/01/23 Did you have a dental visit in the last 12 months?: No Did you have a dental problem in the last 6 months where you did not have access to dental care?: No Was dental information given to patient?: No HPI Medication review for sleeping HPI Details 33-year-old male presents to the office for a follow-up visit. Since last office visit, patient has been having conversations with the community navigator. He is now more compliant with insulin and has been taking it as directed for the past few weeks. Patient reports that he has extreme difficulty sleeping at night. He lays awake all night and only falls asleep at jarred. Sleeps for a few hours and wakes up not feeling rested. He is currently not working and spends most of the time in his room. [facility] Medical History Nicotine dependence MDD (major depressive disorder), severe Cocaine use disorder Noncompliance Dental decay Diabetes mellitus type 1, uncontrolled Hyperlipidemia LDL goal <100 Surgical History No history of previous surgery Family History Maternal Grandmother Diabetes, type I Social History Household Members: Family Housing: Apartment Housing Other:: rents a room Alcohol intake: never Patient Tobacco Use Status: Current someday Tobacco user Tobacco use type: Cigarette Cigarettes Per Day: 5 e-Cigarette/Vaping Use: Never Used Second Hand Smoke Exposure: Yes Substance Use Type: Marijuana service: No Current occupational status: employed Cognitive needs: No Hearing needs: No Vision needs: No Questionnaire PHQ-9 Over the last 2 weeks, how often have you been bothered by any of the following problems? 1. Little interest or pleasure in doing things: not at all 2. Feeling down, depressed, or hopeless: not at all 3. Trouble falling or staying asleep, or sleeping too much: not at all 4. Feeling tired or having little energy: not at all 5. Poor appetite or overeating: not at all 6. Feeling bad about yourself - or that you are a failure or have let yourself or your family down: not at all 7. Trouble concentrating on things, such as reading the newspaper or watching television: not at all 8. Moving or speaking so slowly that other people could have noticed. Or the opposite - being so fidgety or restless that you have been moving around a lot more than usual: not at all 9. Thoughts that you would be better off or of hurting yourself in some way: not at all Total score: 0 Depression Screening Interpretation: Negative Depression Screening Done: Yes Source: Developed by Drs. Luis Silva, Grabiel Grimaldo and colleagues, with an educational italo from [employer]. Thrive Questionnaire Date Thrive assessed: 04/01/23 EMMA-7 AMB Questionnaire EMMA-7 Date EMMA - 7 assessed: 04/01/23 Source: Developed by Drs. Luis Silva, Grabiel Grimaldo and colleagues, with an educational italo from [employer]. Physical exam (Primary Care) Vital Signs: Last Vital Signs BP 120/76 05/01/23 13:05 BMI result Body Mass Index 19.7 Tobacco/Smoking Status: Tobacco use Status Tobacco use date assessed 05/01/23 05/01/23 13:10 Patient Tobacco Use Status Current someday Tobacco 05/01/23 13:10 Tobacco use type Cigarette 05/01/23 13:10 e-Cigarette/Vaping Use Never Used 05/01/23 13:10 PHQ-9: PHQ-9 Score PHQ-9: Total score 0 05/01/23 14:56 Depression Screening Interpretation: Negative Thrive Assessment: Date of Thrive Assessment Date Thrive assessed 04/01/23 05/01/23 13:10 Const General: cooperative and healthy appearing Nutritional Appearance: well nourished Orientation/consciousness: patient oriented x3 Limitations: no limitations HENMT Head: Yes normal to inspection Eyes General: appearance normal, both eyes and all related structures Neck Neck: Yes normal visual inspection Chest Chest palpation & inspection: normal palpation of entire chest wall Resp Effort & Inspection: normal respiratory effort Neuro General: patient oriented x3 Assessment and Plan Assessment & Plan (1) MDD (major depressive disorder), severe: Comment: Continues with depressed mood, somewhat improved. No SI. Code(s): F32.2 - Major depressive disorder, single episode, severe without psychotic features Plan: Noncompliance, poor follow-up her some of the barriers in the treatment of this condition. Patient would not see a mental health worker for further workup of this condition. I have started him on trazodone to give him symptomatic relief. Patient was advised to be compliant with his diabetes medications. 20 minutes spent on counseling. Medications: New trazodone 100 mg PO BEDTIME 90 days PRN 90 tabs 1RF sleep Coding Level of Care Code Est Pt Level 4 (64116) Diagnoses MDD (major depressive disorder), severe F32.2
[2023-05-01 13:05] VITALS: BP 120/76; BMI 19.7
== END 2023-05-01 13:30 | disposition home or self-care (01) ==
PROVIDERS: PCP Internal Medicine; Visit Provider Internal Medicine
DX: F32.2 Major depressive disorder, single episode, severe without psychotic features (principal)
CPT/HCPCS: 99214

== ENCOUNTER 2023-05-16 20:53 | Emergency (ER) | payer OTHER, SELFPAY ==
[2023-05-16 21:11] VITALS: BP 117/81; BP 128/84; PULSE 100; PULSE 116; RESP 18; TEMP 36.9; O2SAT 100; O2SAT 96; BMI 18.4
--- NOTE | 2023-05-16 21:52 | MHC.EDTECH ---
Patient was called to have lab work @ 2144,and 2151,this tech went outside,bathroom,and to Xray patient is not here. scrap yard worker aware
--- NOTE | 2023-05-16 22:04 | MHC.EDTECH ---
Called patient [facility] [email or web address] No answer,Charge aware
--- NOTE | 2023-05-16 22:13 | PC.NURSE ---
Pt called multiple times in [place] with no answer.
== END 2023-05-16 22:14 | disposition left against medical advice (07) ==
PROVIDERS: Emergency Provider Emergency Medicine
DX: R53.1 Weakness (principal); R11.2 Nausea with vomiting, unspecified
CPT/HCPCS: 99281

== ENCOUNTER 2023-06-03 12:54 | Outpatient (AMB) | payer OTHER, SELFPAY ==
--- NOTE | 2023-06-03 12:58 | MHC.OFFVIS ---
Intake Vital Signs 06/03/23 13:00 Height 5 ft 6 in Weight 125 lb 14.143 oz BMI 20.3 BP 140/88 H Blood Pressure Location Rt brachial Position Sitting Pulse 79 Pulse Source Pulse Oximeter Intake Visit Reasons: [id number] Intake Note: Patient present today to follow up on Type 1 Diabetes Mellitus. Last Diabetic Eye exam: About 3 years ago. Last Podiatry Visit: Doesn't have one. Random Glucose: 188 mg/dl HgA1C: 12.1% Glass Unloading Equipment Tender Required: No Accompanied by: Self / Same As Patient Allergies No Known Allergies [No Known Allergies*] Allergy (Verified 06/03/23 13:03) HPI HPI Comments History of Present Illness Details Patient is 33 yo male with DM type 1 diagnosed at age 10 who presents for management of diabetes. , Diabetes medications: Lantus 24 units once a day, Lispro 8 units with meals, 5 units with snacks, 5 units with soda (will add on to meal dose). He will also have a correction plus 2 units for blood sugars over 250, +3 units for blood sugars over 300, +4 units for blood sugars over 350, and + 5 units for blood sugars over 400. Noncompliant with insulin still but states better Eusebio download shows she is using the sensor 31% of the time. Average glucose is 219. Variability is 43.2 31% glucose is in target range 30 % hyperglycemia and 37% very hyperglycemic and 2% hyperglycemia Symptoms: Cramping in feet Hypoglycemia: once a week. Hyperglycemia:not recently Eye exam: yrs ago needs to make appt Exercise: little Laboratory Tests 06/01/20 06/01/20 06/01/20 12:30 12:30 12:30 Creatinine 0.98 Estimated GFR > 60 Fasting Glucose 371 H* Hemoglobin A1c % 12.2 Triglycerides 112 Cholesterol 227 LDL Cholesterol Di rect 134 H HDL Cholesterol 71 Microalb/Creat Rat io 06/01/20 12:30 Creatinine Estimated GFR Fasting Glucose Hemoglobin A1c % Triglycerides Cholesterol LDL Cholesterol Di rect HDL Cholesterol Microalb/Creat Rat io 13.1 He has started going to hindu and is more compliant with his insulin. He did express interested insulin pump [facility] Medical History Nicotine dependence MDD (major depressive disorder), severe Cocaine use disorder Noncompliance Dental decay Diabetes mellitus type 1, uncontrolled Hyperlipidemia LDL goal <100 Surgical History No history of previous surgery Family History Maternal Grandmother Diabetes, type I Social History Household Members: Family Housing: Apartment Housing Other:: rents a room Alcohol intake: never Patient Tobacco Use Status: Current someday Tobacco user Tobacco use type: Cigarette Cigarettes Per Day: 5 e-Cigarette/Vaping Use: Never Used Second Hand Smoke Exposure: Yes Substance Use Type: Marijuana service: No Current occupational status: employed Cognitive needs: No Hearing needs: No Vision needs: No Physical Exam Vital Signs: Last Vital Signs Pulse 79 06/03/23 13:00 BP 140/88 H 06/03/23 13:00 BMI result Body Mass Index 20.3 Results AMB Hemoglobin A1c AMB Hemoglobin A1c 12.1 % Last Edit by CALOS Hawkins on 06/03/23 13:35 Results Reviewed Results Reviewed: Laboratory Last Values Glucose (Clinic) 188 mg/dL (60-115) H 06/03/23 13:05 Hgb A1c (Clinic) 12.1 % (4.0-6.0) H 06/03/23 13:20 Assessment & Plan Assessment & Plan (1) Diabetes mellitus type 1, uncontrolled: Comment: since age 10 Code(s): E10.65 - Type 1 diabetes mellitus with hyperglycemia Plan: This is a 33-year-old male with a history of longstanding type 1 diabetes currently being treated with basal-bolus insulin with poor glycemic control and no known microvascular or macrovascular complications. . Patient was advised to use Eusebio to scanned frequently s. Will increase Humalog by 2-3 units before meals . He is going to make an appointment with the primary special educator and mold tooler and expressed interest in a pump. I did have a extensive discussion with the patient regarding the association of poor glycemic control and complications. Orders: Orders AMB Hemoglobin A1c Today E10.65 - Type 1 diabetes mellitus with hyperglycemia, Z13.9 - Encounter for screening, unspecified Coding Level of Care Code Est Pt Level 4 (44988) Diagnoses Diabetes mellitus type 1, uncontrolled E10.65
[2023-06-03 13:00] VITALS: BP 140/88; PULSE 79; BMI 20.3
[2023-06-03 13:20] LABS: Glucose, Whole Blood 188 mg/dL (60-115)
== END 2023-06-03 13:19 | disposition home or self-care (01) ==
PROVIDERS: Visit Provider Internal Medicine Endocrinology, Diabetes & Metabolism
DX: Z13.9 Encounter for screening, unspecified (principal); E10.65 Type 1 diabetes mellitus with hyperglycemia
CPT/HCPCS: 99214

== ENCOUNTER → 2023-06-03 12:54 | Outpatient (BNVA) | payer OTHER, SELFPAY | PROVIDERS: Visit Provider Internal Medicine Endocrinology, Diabetes & Metabolism | DX: E10.65 Type 1 diabetes mellitus with hyperglycemia (principal); Z79.4 Long term (current) use of insulin | CPT/HCPCS: 82947; 83036; 99212 ==

== ENCOUNTER 2023-07-10 14:18 | Outpatient (AMB) | payer OTHER, SELFPAY ==
--- NOTE | 2023-07-10 14:27 | MHC.PC.OV ---
Vital Signs 07/10/23 14:29 Height 5 ft 6 in Weight 121 lb 4 oz BMI 19.6 BP 120/74 Blood Pressure Location Lt brachial Position Sitting Pulse 102 H Pulse Source Pulse Oximeter Pulse Oximetry (%) 97 Oxygen Delivery Method Room Air Intake Visit Reasons: 3 month f/u Intake Note: Patient is here to follow up on DM, HLD. 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: Not Required per policy Accompanied by: Self / Same As Patient Allergies No Known Allergies [No Known Allergies*] Allergy (Verified 07/16/23 07:32) Medication List - Last Reconciled 07/10/23 by Ryland Miller MD atorvastatin 20 mg PO BEDTIME digital therapeutics, OUD (Reset-O Digital Tato (OUD)) As directed (3-4 times a week) 84 days flash glucose scanning reader (FreeStyle Eusebio 2 [place]) As directed gabapentin 300 mg PO BEDTIME insulin glargine (Lantus Solostar U-100 Insulin) 24 units (0.24 mL) subcut BEDTIME insulin lispro 16 - 18 units subcut TIDAC pen needle, diabetic (BD Blanca 2nd Gen Pen Needle) As directed 5 times a day pen needle, diabetic (BD Blanca 2nd Gen Pen Needle) DIRECTED FIVE TIMES A DAY trazodone 100 mg PO BEDTIME PRN 90 days Tobacco use date assessed: 07/10/23 Dental Screening Dental Screen Date: 05/01/23 HPI 3 month f/u HPI Details 33-year-old male presents to the office to discuss his chronic medical conditions. Patient appears to be very sleepy. He reports that he quit smoking crack cocaine 2 weeks ago. He has been using marijuana to help with his withdrawal. He ran out of trazodone and is now unable to sleep again. A therapist has been identified for him and patient is to start session soon. His blood sugars are widely fluctuating due to his irregular eating habits. Patient reports that he has seen episodes of low blood sugar . [facility] Medical History Nicotine dependence MDD (major depressive disorder), severe Cocaine use disorder Noncompliance Dental decay Diabetes mellitus type 1, uncontrolled Hyperlipidemia LDL goal <100 Surgical History No history of previous surgery Family History Maternal Grandmother Diabetes, type I Social History Household Members: Family Housing: Apartment Housing Other:: rents a room Alcohol intake: never Patient Tobacco Use Status: Current someday Tobacco user Tobacco use type: Cigarette Cigarettes Per Day: 4 e-Cigarette/Vaping Use: Never Used Second Hand Smoke Exposure: Yes Substance Use Type: Marijuana service: No Current occupational status: employed Cognitive needs: No Hearing needs: No Vision needs: No Questionnaire Thrive Questionnaire Date Thrive assessed: 04/01/23 EMMA-7 AMB Questionnaire EMMA-7 Date EMMA - 7 assessed: 04/01/23 Source: Developed by Drs. Luis Silva, Isabelle Roca, Grabiel Mario and colleagues, with an educational italo from [employer]. Physical exam (Primary Care) Vital Signs: Last Vital Signs Pulse 102 H 07/10/23 14:29 BP 120/74 07/10/23 14:29 Pulse Ox 97 07/10/23 14:29 Oxygen Delivery Method Room Air 07/10/23 14:29 BMI result Body Mass Index 19.6 Tobacco/Smoking Status: Tobacco use Status Tobacco use date assessed 07/10/23 07/10/23 14:35 Patient Tobacco Use Status Current everyday Tobacco 07/10/23 14:35 Tobacco use type Cigarette 07/10/23 14:35 e-Cigarette/Vaping Use Never Used 07/10/23 14:35 Are you ready to quit: No Thrive Assessment: Date of Thrive Assessment Date Thrive assessed 04/01/23 07/10/23 14:35 Const General: cooperative and healthy appearing Nutritional Appearance: well nourished Orientation/consciousness: patient oriented x3 Limitations: no limitations HENMT Head: Yes normal to inspection Eyes General: appearance normal, both eyes and all related structures Neck Neck: Yes normal visual inspection Chest Chest palpation & inspection: normal palpation of entire chest wall Resp Effort & Inspection: normal respiratory effort Neuro General: patient oriented x3 Assessment and Plan Assessment & Plan (1) Diabetes mellitus type 1, uncontrolled: Comment: since age 10 Code(s): E10.65 - Type 1 diabetes mellitus with hyperglycemia Plan: Patient was advised to check his blood sugars more frequently. Adjust his insulin accordingly. (2) Cocaine use disorder: Code(s): F14.10 - Cocaine abuse, uncomplicated Plan: Pt was advised to enroll in the clinic where active substance use is treated. Medications: Refilled trazodone 100 mg PO BEDTIME PRN 90 tabs 1RF sleep 90 days gabapentin 300 mg PO BEDTIME 90 caps 0RF Patient Instructions: Goals: to lower the A1c. Barriers: Poor compliance. Active Cocaine use. Coding Level of Care Code Est Pt Level 4 (16834) Diagnoses Diabetes mellitus type 1, uncontrolled E10.65 Cocaine use disorder F14.10
[2023-07-10 14:29] VITALS: BP 120/74; PULSE 102; O2SAT 97; BMI 19.6
== END 2023-07-10 15:05 | disposition home or self-care (01) ==
PROVIDERS: PCP Internal Medicine; Visit Provider Internal Medicine
DX: E10.65 Type 1 diabetes mellitus with hyperglycemia (principal); F14.10 Cocaine abuse, uncomplicated
CPT/HCPCS: 99214

== ENCOUNTER 2023-09-04 19:37 | Inpatient (IN) | payer OTHER, SELFPAY ==
[2023-09-04 19:39] VITALS: BP 148/100; PULSE 108; O2SAT 98
[2023-09-04 19:45] VITALS: BMI 23.3
--- NOTE | 2023-09-04 19:59 | PC.NURSE ---
Pt disclosed to this RN and tech that he actually did use heroin prior to arrival, tried to overdose in an attempt to kill himself. calibration specialist aware, pt changed over into [facility] gown and 1:[address]. Reports no prior history of self harm, not medicated for depression or anxiety.
[2023-09-04 20:08] VITALS: BP 118/77; PULSE 92; RESP 14; TEMP 36.7; O2SAT 95
[2023-09-04 20:32] LABS: MANUAL DIFF FLAG NO
[2023-09-04 20:35] LABS: Basophils Absolute Auto 0.1 X10*3/uL (0.0-0.2); Basophils Percent Auto 0.6 % (0-2); Eosinophils Absolute Auto 0.1 X10*3/uL (0.0-0.4); Hematocrit 41.9 % (42.0-52.0); Hemoglobin 13.9 g/dl (14.0-18.0); Imm Gran Abs Auto 0.05 X10*3/uL (0.00-0.03); Imm Gran Pct Auto 0.4 % (0.0-0.4); Lymphocytes Absolute Auto 1.5 X10*3/uL (1.2-4.9); Lymphocytes Percent Auto 11.7 % (20-40); Mean Corpuscular HGB Conc 33.2 g/dl (31.0-36.0); Mean Corpuscular Hemoglobin 28.9 pg (27.0-33.0); Mean Corpuscular Volume 87.1 fL (80.0-98.0); Mean Platelet Volume 11.1 fL (9.4-12.4); Neutrophils Absolute Auto 10.1 x10*3/uL (2.0-8.3); Neutrophils Percent Auto 78.3 % (45-73); Platelet Count 268 X10*3/uL (160-400); Red Blood Count 4.81 X10*6/uL (4.60-5.80); Red Cell Distribution Width 12.9 % (11.0-16.0); White Blood Count 12.9 X10*3/uL (4.8-10.8)
[2023-09-04 20:48] LABS: Ethanol < 10 mg/dL
[2023-09-04 20:49] LABS: Alanine Aminotransferase 17 U/L (0-40); Albumin Level 4.2 g/dL (3.5-5.0); Alkaline Phosphatase 73 U/L (39-117); Anion Gap 16 (12-20); Aspartate Amino Transferase 14 U/L (5-37); Bilirubin Total 0.3 mg/dL (0.0-1.0); Blood Urea Nitrogen 13 mg/dL (9-16); Calcium 10.2 mg/dL (8.4-10.2); Carbon Dioxide 28 mmol/L (22-29); Chloride 99 mmol/L (96-108); Estimated Glomerular Filt Rate > 60; Glucose Random 293 mg/dL (60-115); Lipase 7 U/L (8-78); Potassium 4.5 mmol/L (3.3-5.1); Sodium 138 mmol/L (135-145); Total Protein 7.3 g/dL (6.5-8.0)
[2023-09-04 20:51] LABS: Acetaminophen LAB < 3 mcg/mL (<30); Salicylate < 5.0 mg/dL (15-30)
[2023-09-04 22:00] LABS: Appearance Urine Cloudy; Color Urine Yellow; Glucose Urine UA >=1000 mg/dL (Negative); Leukocyte Esterase Urine Negative (Negative); Nitrite Urine Negative (Negative); Specific Gravity - Urine >= 1.030 (1.005-1.025); UMIC TRIGGER UACC YES; Urine Blood Small (1+) (Negative); Urine Ketones Negative (Negative); Urine Protein Trace mg/dL (Neg-Trace)
[2023-09-04 22:13] LABS: Amphetamine Screen Urine Not Detected (Not Detect); Barbiturates, Urine Not Detected (Not Detect); Benzodiazepines Screen Urine Not Detected (Not Detect); Buprenorphine Scr Not Detected (Not Detect); Cannabinoid Screen Urine POSITIVE (Not Detect); Cocaine Screen Urine POSITIVE (Not Detect); Fentanyl, urine POSITIVE (Not Detect); Methadone Screen, Urine Not Detected (Not Detect); Opiate Screen Urine POSITIVE (Not Detect); Oxycodone Screen Urine Not Detected (Not Detect); Phencyclidine Screen Urine Not Detected (Not Detect)
--- NOTE | 2023-09-04 22:35 | ED.OVERDOSE ---
HPI - Overdose General Chief Complaint: Altered Mental Status Stated Complaint: HEROINE USE,FOUND UNCONSIOUS, BGL 401 Time Seen by Provider: 09/04/23 20:04 Source: EMS Mode of arrival: EMS Limitations: other History of Present Illness ED Provider: José Miguel FRENCH Narrative: 33-year-old male with history of substance use disorder, diabetes, depression presents after overdose. Patient was found in the yd by his mother, he was minimally responsive. When EMS arrived, his mentation had improved, he was ambulatory on scene did not require Narcan. Here in the emergency department, patient is verbalizing thoughts of self-harm, he states ?I did not want my mom to find me I did on purpose?. Patient has numerous psychosocial stressors at this time. Related Data Home Medications ?Medication ?Instructions ?Recorded ?Confirmed atorvastatin 20 mg tablet 20 mg PO BEDTIME 09/04/23 09/04/23 gabapentin 300 mg capsule 300 mg PO BEDTIME 09/04/23 09/04/23 insulin glargine 100 unit/mL (3 24 unit subcut BEDTIME 09/04/23 09/05/23 mL) subcutaneous pen (Lantus Solostar U-100 Insulin) insulin lispro 100 unit/mL 8 unit subcut TID 09/04/23 09/04/23 subcutaneous pen trazodone 100 mg tablet 100 mg PO BEDTIME PRN insomnia 09/04/23 09/04/23 Allergies Allergy/AdvReac Type Severity Reaction Status Date / Time No Known Allergies Allergy Verified 09/04/23 19:47 [No Known Allergies*] Review of Systems Review of Systems: Yes all other systems are reviewed and are negative Constitutional: Constitutional: Denies fever(s) Cardiovascular: Cardiovascular: Denies chest pain and Denies dyspnea Respiratory: Respiratory: Denies dyspnea Gastrointestinal: Gastrointestinal: Denies vomiting Psychiatric: Psychiatric: Reports suicidal ideation PMFSH Past Medical History Attestation statement: The following information was validated with the patient. Medical History Nicotine dependence MDD (major depressive disorder), severe Cocaine use disorder Noncompliance Dental decay Diabetes mellitus type 1, uncontrolled Hyperlipidemia LDL goal <100 Surgical History No history of previous surgery Family History Family History Maternal Grandmother Diabetes, type I Social History Social History Household Members: Family Housing: Apartment Housing Other:: rents a room Unable to assess alcohol history related to: Unknown Alcohol intake: never Patient Tobacco Use Status: Current someday Tobacco user Tobacco use type: Cigarette Cigarettes Per Day: 4 e-Cigarette/Vaping Use: Never Used Second Hand Smoke Exposure: Yes Use of substances other than those prescribed or required for medical reasons: Yes Substance Use Type: Crack/Cocaine, Heroin, Marijuana and Opiates Substance Use Frequency: Daily Last Used Substance: Just Prior to Admission Advance Directives: No Advance Directives Information Provided: No Do you have a plan to hurt others: No Plan service: No Current occupational status: employed Cognitive needs: No Hearing needs: No Vision needs: No Physical Exam Vital Signs: Vital Signs: Last Vital Signs Temp 98.1 F 09/04/23 20:08 Pulse 92 09/04/23 20:08 Resp 14 09/04/23 20:08 BP 118/77 09/04/23 20:08 Pulse Ox 95 09/04/23 20:08 O2 Del Method Room Air 09/04/23 20:08 BMI result Body Mass Index 23.3 Const: Other: Alert General: cooperative Eyes: Pupils: Other pupil findings (Pinpoint pupils) Resp: Other: Nonlabored respirations Cardio: Other: Normal peripheral perfusion Skin: Other: No rash Psych: Other: Flat affect, SI, cooperative here in the emergency department Medical Decision Making Medical Decision Making MDM Narrative: 33-year-old male with history of substance use disorder, diabetes, depression presents after overdose. Patient was found in the yd by his mother, he was minimally responsive. When EMS arrived, his mentation had improved, he was ambulatory on scene did not require Narcan. Here in the emergency department, patient is verbalizing thoughts of self-harm, he states ?I did not want my mom to find me I did on purpose?. Patient has numerous psychosocial stressors at this time. Problem: Substance use disorder, psychiatric illness History: Per patient I have considered the following differential diagnoses: SI, HI, drug/alcohol intoxication, decompensated psychiatric illness Plan: Patient had a suicide attempt overnight, he will be seen by our behavioral health team. Screening basic labs, serum ethanol and U tox. I have independently reviewed the following tests: Labs: Not anemic, slight leukocytosis which I attribute to being reactive, no electrolyte abnormality, glucose 293, no gap, serum ethanol less than 10 U tox positive for opiates, fentanyl, cocaine and marijuana Patient will be referred to Behavioral Health team Differential Diagnosis Differential Diagnoses: The differential diagnosis associated with the presentation includes SI, HI, drug/alcohol intoxication, decompensated psychiatric illness Lab Data 09/04/23 20:27 09/04/23 20:27 Labs: Lab Results 09/04/23 09/04/23 09/04/23 Range/Units 20:27 21:40 21:43 WBC 12.9 H (4.8-10.8) X10*3/uL RBC 4.81 (4.60-5.80) X10*6/uL Hgb 13.9 L (14.0-18.0) g/dl Hct 41.9 L (42.0-52.0) % MCV 87.1 (80.0-98.0) fL MCH 28.9 (27.0-33.0) pg MCHC 33.2 (31.0-36.0) g/dl RDW 12.9 (11.0-16.0) % Plt Count 268 (160-400) X10*3/uL MPV 11.1 (9.4-12.4) fL Immature Gran % (Auto) 0.4 (0.0-0.4) % Neut % (Auto) 78.3 H (45-73) % Lymph % (Auto) 11.7 L (20-40) % [place] % (Auto) 8.0 (2-11) % Eos % (Auto) 1.0 (0-4) % Baso % (Auto) 0.6 (0-2) % Lymph # (Auto) 1.5 (1.2-4.9) X10*3/uL [place] # (Auto) 1.0 (0.1-1.2) X10*3/uL Eos # (Auto) 0.1 (0.0-0.4) X10*3/uL Baso # (Auto) 0.1 (0.0-0.2) X10*3/uL Abs Immat Gran (auto) 0.05 H (0.00-0.03) X10*3/uL Absolute Neuts (auto) 10.1 H (2.0-8.3) x10*3/uL Absolute Nucleated RBC 0.000 (0.0-0.012) X10*3/uL Nucleated RBC % (auto) 0.0 (0.0-0.2) /100WBC Sodium 138 (135-145) mmol/L Potassium 4.5 (3.3-5.1) mmol/L Chloride 99 (96-108) mmol/L Carbon Dioxide 28 (22-29) mmol/L Anion Gap 16 (12-20) BUN 13 (9-16) mg/dL Creatinine 1.23 (0.5-1.4) mg/dL Estim Creat Clear Calc 75.0 Estimated GFR > 60 POC Glucose (60-115) mg/dL Random Glucose 293 H (60-115) mg/dL Calcium 10.2 D (8.4-10.2) mg/dL Total Bilirubin 0.3 (0.0-1.0) mg/dL AST 14 (5-37) U/L ALT 17 (0-40) U/L Alkaline Phosphatase 73 (39-117) U/L Total Protein 7.3 (6.5-8.0) g/dL Albumin 4.2 (3.5-5.0) g/dL Lipase 7 L (8-78) U/L Urine Color Yellow Urine Appearance Cloudy Urine pH 6.0 (5.0-9.0) Ur Specific [place] >= 1.030 H (1.005-1.025) Urine Protein Trace (Neg-Trace) mg/dL Urine Glucose (UA) >=1000 H (Negative) mg/dL Urine Ketones Negative (Negative) mg/dL Urine Blood Small (1+) H (Negative) Urine Nitrite Negative (Negative) Ur Leukocyte Esterase Negative (Negative) Urine RBC >20 H (0-2) /HPF Urine WBC 11-20 H (0-5) /HPF Ur Squamous Epith Cells 11-20 (0-2) /HPF Urine Bacteria 2+ (None Seen) Hyaline Casts 11-20 (0-2) /LPF Salicylates < 5.0 L (15-30) mg/dL Urine Opiates Screen POSITIVE H (Not Detect) Ur Buprenorphine Scrn Not Detected (Not Detect) ng/mL Ur Oxycodone Screen Not Detected (Not Detect) ng/mL Urine Methadone Screen Not Detected (Not Detect) ng/mL Urine Fentanyl Screen POSITIVE H (Not Detect) Acetaminophen < 3 (<30) mcg/mL Ur Barbiturates Screen Not Detected (Not Detect) Ur Phencyclidine Scrn Not Detected (Not Detect) Ur Amphetamines Screen Not Detected (Not Detect) U Benzodiazepines Scrn Not Detected (Not Detect) Urine Cocaine Screen POSITIVE H (Not Detect) U Marijuana (THC) Screen POSITIVE H (Not Detect) Ethyl Alcohol < 10 mg/dL 09/05/23 Range/Units 00:04 WBC (4.8-10.8) X10*3/uL RBC (4.60-5.80) X10*6/uL Hgb (14.0-18.0) g/dl Hct (42.0-52.0) % MCV (80.0-98.0) fL MCH (27.0-33.0) pg MCHC (31.0-36.0) g/dl RDW (11.0-16.0) % Plt Count (160-400) X10*3/uL MPV (9.4-12.4) fL Immature Gran % (Auto) (0.0-0.4) % Neut % (Auto) (45-73) % Lymph % (Auto) (20-40) % [place] % (Auto) (2-11) % Eos % (Auto) (0-4) % Baso % (Auto) (0-2) % Lymph # (Auto) (1.2-4.9) X10*3/uL [place] # (Auto) (0.1-1.2) X10*3/uL Eos # (Auto) (0.0-0.4) X10*3/uL Baso # (Auto) (0.0-0.2) X10*3/uL Abs Immat Gran (auto) (0.00-0.03) X10*3/uL Absolute Neuts (auto) (2.0-8.3) x10*3/uL Absolute Nucleated RBC (0.0-0.012) X10*3/uL Nucleated RBC % (auto) (0.0-0.2) /100WBC Sodium (135-145) mmol/L Potassium (3.3-5.1) mmol/L Chloride (96-108) mmol/L Carbon Dioxide (22-29) mmol/L Anion Gap (12-20) BUN (9-16) mg/dL Creatinine (0.5-1.4) mg/dL Estim Creat Clear Calc Estimated GFR POC Glucose 302 H (60-115) mg/dL Random Glucose (60-115) mg/dL Calcium (8.4-10.2) mg/dL Total Bilirubin (0.0-1.0) mg/dL AST (5-37) U/L ALT (0-40) U/L Alkaline Phosphatase (39-117) U/L Total Protein (6.5-8.0) g/dL Albumin (3.5-5.0) g/dL Lipase (8-78) U/L Urine Color Urine Appearance Urine pH (5.0-9.0) Ur Specific [place] (1.005-1.025) Urine Protein (Neg-Trace) mg/dL Urine Glucose (UA) (Negative) mg/dL Urine Ketones (Negative) mg/dL Urine Blood (Negative) Urine Nitrite (Negative) Ur Leukocyte Esterase (Negative) Urine RBC (0-2) /HPF Urine WBC (0-5) /HPF Ur Squamous Epith Cells (0-2) /HPF Urine Bacteria (None Seen) Hyaline Casts (0-2) /LPF Salicylates (15-30) mg/dL Urine Opiates Screen (Not Detect) Ur Buprenorphine Scrn (Not Detect) ng/mL Ur Oxycodone Screen (Not Detect) ng/mL Urine Methadone Screen (Not Detect) ng/mL Urine Fentanyl Screen (Not Detect) Acetaminophen (<30) mcg/mL Ur Barbiturates Screen (Not Detect) Ur Phencyclidine Scrn (Not Detect) Ur Amphetamines Screen (Not Detect) U Benzodiazepines Scrn (Not Detect) Urine Cocaine Screen (Not Detect) U Marijuana (THC) Screen (Not Detect) Ethyl Alcohol mg/dL Discharge Plan Discharge Clinical Impression: Multiple substance abuse, Depression with suicidal ideation Patient Disposition: Still a Patient Prescriptions: No Action trazodone 100 mg tablet 100 mg PO BEDTIME PRN (Reason: insomnia) gabapentin 300 mg capsule 300 mg PO BEDTIME insulin lispro 100 unit/mL insulin pen 8 unit subcut TID atorvastatin 20 mg tablet 20 mg PO BEDTIME insulin glargine [Lantus Solostar U-100 Insulin] 100 unit/mL (3 mL) insulin pen 24 unit subcut BEDTIME Print Language: Kazakh
[2023-09-04 23:00] LABS: Bacteria Urine 2+ (None Seen); RBC Urine >20 /HPF (0-2); UACC Culture Trigger YES
--- NOTE | 2023-09-05 | ECG_ITS ---
Test Reason : CHECK QT INTERVAL Blood Pressure : / mmHG Vent. Rate : 079 BPM Atrial Rate : 079 BPM P-R Int : 148 ms QRS Dur : 088 ms QT Int : 346 ms P-R-T Axes : 060 063 073 degrees QTc Int : 396 ms Normal sinus rhythm Normal EKG When compared with ECG of 05-SEP-2023 08:48, No significant changes seen Referred By: Giselle Maria Electronically Signed By:EZIO RIVERA
--- NOTE | 2023-09-05 | ECG_ITS ---
Test Reason : ROJASCR Blood Pressure : / mmHG Vent. Rate : 075 BPM Atrial Rate : 075 BPM P-R Int : 148 ms QRS Dur : 094 ms QT Int : 360 ms P-R-T Axes : 145 148 146 degrees QTc Int : 402 ms Suspect limb lead reversal, interpretation assumes no reversal Unusual P axis, possible ectopic atrial rhythm Left posterior fascicular block Nonspecific ST and T wave abnormality Abnormal ECG When compared with ECG of 18-OCT-2022 12:16, Ectopic atrial rhythm has replaced Sinus rhythm T wave inversion now evident in Lateral leads Referred By: Giselle Maria Electronically Signed By:
[2023-09-05 00:08] LABS: Glucose, Whole Blood 302 mg/dL (60-115)
[2023-09-05] MEDS: Insulin Glargine,Hum.rec.anlog 100 UNIT/ML 10 ML VIAL 24 UNIT SUBCUT ×2 (01:20→21:18)
[2023-09-05 06:18] LABS: Glucose, Whole Blood 168 mg/dL (60-115)
--- NOTE | 2023-09-05 06:37 | PC.NURSE ---
Patient slept through the night, no distress observed/reported, compliant with care team assessment, disposition is section 12 inpatient bed search, POC 168 at 0616, med rec completed/approved, VSS, will continue to monitor
[2023-09-05 06:50] VITALS: RESP 18
[2023-09-05 07:13] LABS: Estimated Average Glucose 186 mg/dL; Hemoglobin A1c % 8.1 % (<6.0)
--- NOTE | 2023-09-05 09:18 | MHC.EDTECH ---
repeat EKG done at 0859 d/t leads misplaced
--- NOTE | 2023-09-05 12:28 | PC.NURSE ---
Report given to Katelyn DAVIS on M3
[2023-09-05 12:46] VITALS: BP 124/84; PULSE 86; RESP 16; TEMP 37.1; O2SAT 98
[2023-09-05 13:07] VITALS: BMI 17.8
[2023-09-05 13:21] LABS: Glucose, Whole Blood 276 mg/dL (60-115)
--- NOTE | 2023-09-05 13:22 | HO.PSYADMNOT ---
HPI Date of Service: 09/05/23 Chief Complaint: SA HPI Subjective Notes: Shukla Warning Narrative: per CARE team micky, pt was BIBA to ED after intentional heroin overdose, being found in his mother's backyard. he was initially unresponsive but reportedly did not require/receive narcan. pt reported to ED RN his intentional overdose as well as numerous overdose attempts on insulin (type I DM). c/o stress/overwhelm with psychosocial stressors and chronic substance use. on interview with CARE team staff, he endorsed SI with plan to overdose on heroin or insulin. he also reported VH of scary shadowy figures sometimes. denies AH, endorses insomnia and anorexia. on interview with MD: don't like how i'm living my life. friends come and go. family... not the same no more. sister doesn't come by anymore. family look at me differently... as if i'm lying. [doesn't want detox/rehab bcse] i'm not on drugs. i only did that to kill myself. i want to do what i used to do back in the day. play basketball and work. but can't do either of those things because of diabetic neuropathy. discussion held around his dosing of gabapentin 300 mg QHS, educated he will likely need [id number] mg daily to be helpful for neuropathic pain. agrees to dose increase to 300 TID. declines referral to rehab, saying he quit using cocaine 5-6 months ago and only used heroin this one time to try to kill himself. otherwise he just uses cannabis daily. states he is not depressed every day, some days he feels fine, so he does not want to start antidepressant medication. he was educated re SNRIs and possible dual benefit. he has a therapist at [facility], Ana Rosa, that he would like to continue to work with. he is very ambivalent about being in the hospital. MD signed section 12b at end of interview as pt was unable to make a decision for himself about signing in. shortly after, pt signed CV and then 3-day notice. he would prefer not to remin in the hospital. Past Psychiatric History: Adolescent saw prescriber briefly in [place], does not recall name. Dx reported to be bipolar d/o. Reports medications as a teen, does not recall names. h/o treatment through [facility]. No hx of IP, PHP. h/o ED presentation, sent by outpatient provider, due to passive SI by noncompliance with diabetes treatment. hosp: none prior SA: insulin over-injection - 5 times. never before with heroin. SIB: none HIB: none outpt: started therapy about a month ago ([facility]) - with ana rosa. no meds. Medical Evaluation Reviewed: Yes [facility] Medical History Nicotine dependence MDD (major depressive disorder), severe Cocaine use disorder Noncompliance Dental decay Diabetes mellitus type 1, uncontrolled Hyperlipidemia LDL goal <100 Surgical History No history of previous surgery Family History: Father: by heroin overdose. Mother: Inpatient for 1 month, several years ago, was acutely suicidal. Social History: Patient was raised by both parents, has 1 sister and 1 brother. After parents , father of heroin overdose. Mother remarried. Patient currently lives with mother and stepfather. Recently lost job. Did not complete high school. Substance History: tobacco - 5 cigs/day alcohol - none cannabis - per CARE team eval, daily (utox cannabis POS). on interview with MD states has been using daily. cocaine - per CARE team eval, daily (utox cocaine POS). on interview with MD states he stopped using cocaine months ago. opioids - per CARE team eval, occasional (utox opiates, fentanyl POS). on interview with MD used only once [employer]. stimulants - denies benzos - denies never tried a detox or rehab Trauma History: denies Diagnostics Vital Signs (24Hr): Vital Signs - 24 hr 09/04/23 20:08 09/05/23 06:50 09/05/23 12:46 Temperature 98.1 F 98.8 F Pulse Rate 92 86 Respiratory Rate 14 18 16 Blood Pressure 118/77 124/84 Pulse Oximetry 95 98 Oxygen Delivery Method Room Air Room Air Room Air BMI result Body Mass Index 17.8 Labs 09/04/23 20:27 09/04/23 20:27 Labs: Laboratory Results - last 48 hr 09/04/23 09/04/23 09/04/23 20:27 21:40 21:43 WBC 12.9 H RBC 4.81 Hgb 13.9 L Hct 41.9 L MCV 87.1 MCH 28.9 MCHC 33.2 RDW 12.9 Plt Count 268 MPV 11.1 Immature Gran % (Auto) 0.4 Neut % (Auto) 78.3 H Lymph % (Auto) 11.7 L Wirt % (Auto) 8.0 Eos % (Auto) 1.0 Baso % (Auto) 0.6 Lymph # (Auto) 1.5 Wirt # (Auto) 1.0 Eos # (Auto) 0.1 Baso # (Auto) 0.1 Abs Immat Gran (auto) 0.05 H Absolute Neuts (auto) 10.1 H Absolute Nucleated RBC 0.000 Nucleated RBC % (auto) 0.0 Sodium 138 Potassium 4.5 Chloride 99 Carbon Dioxide 28 Anion Gap 16 BUN 13 Creatinine 1.23 Estim Creat Clear Calc 75.0 Estimated GFR > 60 POC Glucose Random Glucose 293 H Estimat Average Glucose 186 Hemoglobin A1c % 8.1 H Calcium 10.2 D Total Bilirubin 0.3 AST 14 ALT 17 Alkaline Phosphatase 73 Total Protein 7.3 Albumin 4.2 Lipase 7 L Urine Color Yellow Urine Appearance Cloudy Urine pH 6.0 Ur Specific [place] >= 1.030 H Urine Protein Trace Urine Glucose (UA) >=1000 H Urine Ketones Negative Urine Blood Small (1+) H Urine Nitrite Negative Ur Leukocyte Esterase Negative Urine RBC >20 H Urine WBC 11-20 H Ur Squamous Epith Cells 11-20 Urine Bacteria 2+ Hyaline Casts 11-20 Salicylates < 5.0 L Urine Opiates Screen POSITIVE H Ur Buprenorphine Scrn Not Detected Ur Oxycodone Screen Not Detected Urine Methadone Screen Not Detected Urine Fentanyl Screen POSITIVE H Acetaminophen < 3 Ur Barbiturates Screen Not Detected Ur Phencyclidine Scrn Not Detected Ur Amphetamines Screen Not Detected U Benzodiazepines Scrn Not Detected Urine Cocaine Screen POSITIVE H U Marijuana (THC) Screen POSITIVE H Ethyl Alcohol < 10 09/05/23 09/05/23 09/05/23 00:04 06:15 13:15 WBC RBC Hgb Hct MCV MCH MCHC RDW Plt Count MPV Immature Gran % (Auto) Neut % (Auto) Lymph % (Auto) [place]irt % (Auto) Eos % (Auto) Baso % (Auto) Lymph # (Auto) Wirt # (Auto) Eos # (Auto) Baso # (Auto) Abs Immat Gran (auto) Absolute Neuts (auto) Absolute Nucleated RBC Nucleated RBC % (auto) Sodium Potassium Chloride Carbon Dioxide Anion Gap BUN Creatinine Estim Creat Clear Calc Estimated GFR POC Glucose 302 H 168 H 276 H Random Glucose Estimat Average Glucose Hemoglobin A1c % Calcium Total Bilirubin AST ALT Alkaline Phosphatase Total Protein Albumin Lipase Urine Color Urine Appearance Urine pH Ur Specific [place] Urine Protein Urine Glucose (UA) Urine Ketones Urine Blood Urine Nitrite Ur Leukocyte Esterase Urine RBC Urine WBC Ur Squamous Epith Cells Urine Bacteria Hyaline Casts Salicylates Urine Opiates Screen Ur Buprenorphine Scrn Ur Oxycodone Screen Urine Methadone Screen Urine Fentanyl Screen Acetaminophen Ur Barbiturates Screen Ur Phencyclidine Scrn Ur Amphetamines Screen U Benzodiazepines Scrn Urine Cocaine Screen U Marijuana (THC) Screen Ethyl Alcohol Meds/Allergies Meds Home Medications ?Medication ?Instructions ?Recorded ?Confirmed ?Type atorvastatin 20 mg tablet 20 mg PO BEDTIME 09/04/23 09/04/23 History gabapentin 300 mg capsule 300 mg PO BEDTIME 09/04/23 09/04/23 History insulin glargine 100 unit/mL (3 24 unit subcut BEDTIME 09/04/23 09/05/23 History mL) subcutaneous pen (Lantus Solostar U-100 Insulin) insulin lispro 100 unit/mL 8 unit subcut TID 09/04/23 09/04/23 History subcutaneous pen trazodone 100 mg tablet 100 mg PO BEDTIME PRN insomnia 09/04/23 09/04/23 History Allergies Allergies Allergy/AdvReac Type Severity Reaction Status Date / Time No Known Allergies Allergy Verified 09/04/23 19:47 [No Known Allergies*] Mental Status Exam Mental Status Exam Narrative: slight, adequately dressed and groomed. cooperative, no PMA/PMR. speech soft, dysarthric, flattened prosody. nml amount and latency. thoughts linear and logical without delusions or paranoia. affect constricted, hypo-intense, min-labile (brief period of tearfulness). mood regular. no SI/SIBI/HI/AVH. Assessment & Plan Assessment & Plan (1) Depression with suicidal ideation: Status: Acute Code(s): F32.A - Depression, unspecified; R45.851 - Suicidal ideations (2) Cocaine use disorder: Status: Acute Code(s): F14.10 - Cocaine abuse, uncomplicated (3) Nicotine dependence: Status: Acute Code(s): F17.200 - Nicotine dependence, unspecified, uncomplicated (4) Opioid abuse: Status: Acute Code(s): F11.10 - Opioid abuse, uncomplicated (5) Cannabis abuse: Status: Acute Code(s): F12.10 - Cannabis abuse, uncomplicated Plan contain - admit to M3, keep safe, Q15 min checks. declines SNRI for depression and diabetic neuropathy. agreeable to increase gabapentin to 300 TID (for neuropathy). declines rehab, minimizing substance use. declines psych meds. interested in returning to [facility] for therapy. Patient educated on: diagnosis, medication risk/benefits, substance abuse, therapeutic strategies and medical condition Reason for continued inpatient stay Substantial Risk for: harm to self and inability to function Statement Statement: I have reviewed the history and physical and performed a pertinent examination on my patient. No changes have occurred unless specified. If the History and Physical was not performed prior to admission, the Hospitalist's service will be consulted for completing the admission physical. Time Spent With Patient Time: Total time managing care of this patient today __75__ minutes.
[2023-09-05] MEDS: Insulin Lispro 100 UNIT/ML 3 ML VIAL 8 UNIT SUBCUT ×2 (13:29→18:22)
[2023-09-05] MEDS: Gabapentin 300 MG CAPSULE PO ×2 (15:13→21:17)
[2023-09-05 17:52] LABS: Glucose, Whole Blood 269 mg/dL (60-115)
--- NOTE | 2023-09-05 18:33 | PC.ADMIT ---
09/05/23 Keira is a 33 y/o male that was admitted to at 1245 from the Pod on a CV then signed a 3 day for treatment of MDD and poly substance use D/O.? Precipitants of admission include attempted O?D of heroin. Pt was found unresponsive in mothers back yard. Pt reported in the past he had intentionally tried to OD on insulin. A&O to place and situation, and time but not date.? Pt? was cooperative with the admission process. Pt is currently rent a room from his mother. Pt had a recent stressor of not being able to work d/t new dx of neuropathy last year. Mood is depressed. Affect is sad and depressed. Pt denied AH/VH. Pt denied SI or HI at this time but reports ?I just get so lonely and think about how life was back when I wasn?t in pain and I look at now and I don?t really want to be here sometimes.?? Pt reported at this time ?I don?t want to hurt myself now but sometimes life just gets to me and I get those feelings.? Pt reports having an increase in appetite ?I feel like all I do is eat but am never full.? Pt reported a recent wt loss in the last 30 days of 20 lbs.? Pt reported ?sometimes I have a hard time falling asleep.? Pt was easily distracted and avoided eye contact. Pt was tearful at times. Pt reported using heroin prior to admission. Tox Screen was positive for buprenorphine, fentanyl, cocaine and THC. Medical Issues? are Type 1 diabetes, neuropathy, bilat leg pain. Pt was placed on 15 min safety checks.? Pt has NKA. Pt was cooperative with clothing cell changer and skin check. Pt has multiple old scars throughout his body. Pt has a A1C of 8.1.
[2023-09-05 19:40] VITALS: BP 132/75; PULSE 96; RESP 16; TEMP 37.5; O2SAT 99
[2023-09-05 20:15] LABS: Glucose, Whole Blood 163 mg/dL (60-115)
[2023-09-05] MEDS: Atorvastatin Calcium 20 MG TABLET PO (21:17)
[2023-09-05] MEDS: traZODone HCL 100 MG TABLET PO (22:52)
[2023-09-06 07:15] VITALS: BP 122/71; PULSE 88; RESP 16; TEMP 36.4; O2SAT 99
[2023-09-06 08:08] LABS: Glucose, Whole Blood 168 mg/dL (60-115)
--- NOTE | 2023-09-06 09:22 | P.PNPSI_ITS ---
Subjective Subjective Date of Service: 09/06/23 Reason For Visit: SA Subjective Notes: Conditional Voluntary Interim History: Patient was seen and reviewed in rounds today. Records and plans were reviewed. He talked a little bit about the reasons that led to his admission. He denies any current suicidal ideations but still feels negatively about his life. No complaints or side effects. No active SI. No changes were made today Review of Systems Review of Systems Complains of gastric gas Yes all other systems are reviewed and are negative Mental Status Exam Mental Status Exam Narrative: In today's visit he is alert, pleasant and interactive. Soft-spoken speech. Minimal eye contact. No signs of psychosis. Cognitively is intact. No active SI. Judgment is intact Diagnostics Vital Signs (24Hr): Vital Signs - 24 hr 09/05/23 12:46 09/05/23 19:40 09/06/23 07:15 Temperature 98.8 F 99.5 F 97.6 F Pulse Rate 86 96 88 Respiratory Rate 16 16 16 Blood Pressure 124/84 132/75 122/71 Pulse Oximetry 98 99 99 Oxygen Delivery Method Room Air Room Air Room Air BMI result Body Mass Index 17.8 Labs 09/04/23 20:27 09/04/23 20:27 Labs: Laboratory Results - last 48 hr 09/04/23 09/04/23 09/04/23 20:27 21:40 21:43 WBC 12.9 H RBC 4.81 Hgb 13.9 L Hct 41.9 L MCV 87.1 MCH 28.9 MCHC 33.2 RDW 12.9 Plt Count 268 MPV 11.1 Immature Gran % (Auto) 0.4 Neut % (Auto) 78.3 H Lymph % (Auto) 11.7 L [place] % (Auto) 8.0 Eos % (Auto) 1.0 Baso % (Auto) 0.6 Lymph # (Auto) 1.5 [place] # (Auto) 1.0 Eos # (Auto) 0.1 Baso # (Auto) 0.1 Abs Immat Gran (auto) 0.05 H Absolute Neuts (auto) 10.1 H Absolute Nucleated RBC 0.000 Nucleated RBC % (auto) 0.0 Sodium 138 Potassium 4.5 Chloride 99 Carbon Dioxide 28 Anion Gap 16 BUN 13 Creatinine 1.23 Estim Creat Clear Calc 75.0 Estimated GFR > 60 POC Glucose Random Glucose 293 H Estimat Average Glucose 186 Hemoglobin A1c % 8.1 H Calcium 10.2 D Total Bilirubin 0.3 AST 14 ALT 17 Alkaline Phosphatase 73 Total Protein 7.3 Albumin 4.2 Lipase 7 L Urine Color Yellow Urine Appearance Cloudy Urine pH 6.0 Ur Specific [place] >= 1.030 H Urine Protein Trace Urine Glucose (UA) >=1000 H Urine Ketones Negative Urine Blood Small (1+) H Urine Nitrite Negative Ur Leukocyte Esterase Negative Urine RBC >20 H Urine WBC 11-20 H Ur Squamous Epith Cells 11-20 Urine Bacteria 2+ Hyaline Casts 11-20 Salicylates < 5.0 L Urine Opiates Screen POSITIVE H Ur Buprenorphine Scrn Not Detected Ur Oxycodone Screen Not Detected Urine Methadone Screen Not Detected Urine Fentanyl Screen POSITIVE H Acetaminophen < 3 Ur Barbiturates Screen Not Detected Ur Phencyclidine Scrn Not Detected Ur Amphetamines Screen Not Detected U Benzodiazepines Scrn Not Detected Urine Cocaine Screen POSITIVE H U Marijuana (THC) Screen POSITIVE H Ethyl Alcohol < 10 09/05/23 09/05/23 09/05/23 00:04 06:15 13:15 WBC RBC Hgb Hct MCV MCH MCHC RDW Plt Count MPV Immature Gran % (Auto) Neut % (Auto) Lymph % (Auto) [place] % (Auto) Eos % (Auto) Baso % (Auto) Lymph # (Auto) [place] # (Auto) Eos # (Auto) Baso # (Auto) Abs Immat Gran (auto) Absolute Neuts (auto) Absolute Nucleated RBC Nucleated RBC % (auto) Sodium Potassium Chloride Carbon Dioxide Anion Gap BUN Creatinine Estim Creat Clear Calc Estimated GFR POC Glucose 302 H 168 H 276 H Random Glucose Estimat Average Glucose Hemoglobin A1c % Calcium Total Bilirubin AST ALT Alkaline Phosphatase Total Protein Albumin Lipase Urine Color Urine Appearance Urine pH Ur Specific [place] Urine Protein Urine Glucose (UA) Urine Ketones Urine Blood Urine Nitrite Ur Leukocyte Esterase Urine RBC Urine WBC Ur Squamous Epith Cells Urine Bacteria Hyaline Casts Salicylates Urine Opiates Screen Ur Buprenorphine Scrn Ur Oxycodone Screen Urine Methadone Screen Urine Fentanyl Screen Acetaminophen Ur Barbiturates Screen Ur Phencyclidine Scrn Ur Amphetamines Screen U Benzodiazepines Scrn Urine Cocaine Screen U Marijuana (THC) Screen Ethyl Alcohol 09/05/23 09/05/23 09/06/23 17:16 20:11 07:56 WBC RBC Hgb Hct MCV MCH MCHC RDW Plt Count MPV Immature Gran % (Auto) Neut % (Auto) Lymph % (Auto) [place] % (Auto) Eos % (Auto) Baso % (Auto) Lymph # (Auto) [place] # (Auto) Eos # (Auto) Baso # (Auto) Abs Immat Gran (auto) Absolute Neuts (auto) Absolute Nucleated RBC Nucleated RBC % (auto) Sodium Potassium Chloride Carbon Dioxide Anion Gap BUN Creatinine Estim Creat Clear Calc Estimated GFR POC Glucose 269 H 163 H 168 H Random Glucose Estimat Average Glucose Hemoglobin A1c % Calcium Total Bilirubin AST ALT Alkaline Phosphatase Total Protein Albumin Lipase Urine Color Urine Appearance Urine pH Ur Specific [place] Urine Protein Urine Glucose (UA) Urine Ketones Urine Blood Urine Nitrite Ur Leukocyte Esterase Urine RBC Urine WBC Ur Squamous Epith Cells Urine Bacteria Hyaline Casts Salicylates Urine Opiates Screen Ur Buprenorphine Scrn Ur Oxycodone Screen Urine Methadone Screen Urine Fentanyl Screen Acetaminophen Ur Barbiturates Screen Ur Phencyclidine Scrn Ur Amphetamines Screen U Benzodiazepines Scrn Urine Cocaine Screen U Marijuana (THC) Screen Ethyl Alcohol Medications Medications Current Medications Acetaminophen (Acetaminophen 325 Mg Tablet) 650 mg PO Q6H PRN PRN Reason: Headache/Pain Mild Scale (1-3) Al Hydroxide/Mg Hydroxide (Magnesium Hydrox/Alum Hydrox 30 Ml Oral.Susp) 30 ml PO Q6H PRN PRN Reason: Heartburn/Nausea Atorvastatin Calcium (Atorvastatin Calcium 20 Mg Tablet) 20 mg PO BEDTIME [facility] Last Admin: 09/05/23 21:17 Dose: 20 mg Gabapentin (Gabapentin 300 Mg Capsule) 300 mg PO TID AMISHA Last Admin: 09/05/23 21:17 Dose: 300 mg Hydroxyzine HCl (Hydroxyzine Hcl 25 Mg Tablet) 25 mg PO Q6H PRN PRN Reason: Anxiety Insulin Glargine (Insulin Glargine,Hum.Rec.Anlog 100 Unit/Ml 10 Ml Vial) 24 unit SUBCUT BEDTIME [facility] Last Admin: 09/05/23 21:18 Dose: 24 unit Insulin Human Lispro (Insulin Lispro 100 Unit/Ml 3 Ml Vial) 8 unit SUBCUT TIDWM [facility] Last Admin: 09/05/23 18:22 Dose: 8 unit Magnesium Hydroxide (Milk Of Magnesia 30 Ml Oral.Susp) 30 ml PO DAILY PRN PRN Reason: Constipation Nicotine (Nicotine 7 Mg Patch.Td24) 7 mg TRANSDERMA DAILY [facility] Last Admin: 09/05/23 15:10 Dose: Not Given Nicotine Polacrilex (Nicotine Polacrilex 2 Mg Gum) 4 mg BUCCAL Q2H PRN PRN Reason: Nicotine Cravings Trazodone HCl (Trazodone Hcl 100 Mg Tablet) 100 mg PO BEDTIME PRN PRN Reason: insomnia Last Admin: 09/05/23 22:52 Dose: 100 mg Allergies Allergies Allergy/AdvReac Type Severity Reaction Status Date / Time No Known Allergies Allergy Verified 09/04/23 19:47 [No Known Allergies*] Assessment & Plan Assessment & Plan (1) Depression with suicidal ideation: Status: Acute Code(s): F32.A - Depression, unspecified; R45.851 - Suicidal ideations (2) Cocaine use disorder: Status: Acute Code(s): F14.10 - Cocaine abuse, uncomplicated (3) Nicotine dependence: Status: Acute Code(s): F17.200 - Nicotine dependence, unspecified, uncomplicated (4) Opioid abuse: Status: Acute Code(s): F11.10 - Opioid abuse, uncomplicated (5) Cannabis abuse: Status: Acute Code(s): F12.10 - Cannabis abuse, uncomplicated Plan contain - admit to M3, keep safe, Q15 min checks. declines SNRI for depression and diabetic neuropathy. agreeable to increase gabapentin to 300 TID (for neuropathy). declines rehab, minimizing substance use. declines psych meds. interested in returning to [facility] for therapy. 09/05: Continue current regimen and plans Patient educated on: diagnosis and medication risk/benefits Reason for continued inpatient stay Substantial Risk for: harm to self Time Spent With Patient Time: Total time managing care of this patient today ____ minutes.
[2023-09-06] MEDS: Nicotine 7 MG PATCH.TD24 TRANSDERMA (09:34)
[2023-09-06] MEDS: Insulin Lispro 100 UNIT/ML 3 ML VIAL 8 UNIT SUBCUT ×3 (09:34→18:30)
[2023-09-06] MEDS: Gabapentin 300 MG CAPSULE PO ×3 (09:34→22:05)
[2023-09-06] MEDS: Simethicone 80 MG TAB.CHEW PO ×2 (10:04→13:36)
[2023-09-06 13:20] LABS: Glucose, Whole Blood 276 mg/dL (60-115)
[2023-09-06 14:16] LABS: Appearance Urine Cloudy; Color Urine Yellow; Glucose Urine UA 250 mg/dL (Negative); Leukocyte Esterase Urine Negative (Negative); Nitrite Urine Negative (Negative); Specific Gravity - Urine >= 1.030 (1.005-1.025); Urine Blood Negative (Negative); Urine Ketones Negative (Negative); Urine Protein Negative (Neg-Trace)
[2023-09-06] MEDS: Milk of Magnesia 30 ML ORAL.SUSP PO (15:21)
[2023-09-06 18:10] LABS: Glucose, Whole Blood 381 mg/dL (60-115)
--- NOTE | 2023-09-06 18:31 | PC.NURSE ---
Pt.'s US=[address] Griggs notified via [employer]. NO additional orders at this time.
[2023-09-06 20:10] VITALS: BP 133/78; PULSE 105; RESP 16; TEMP 37.1; O2SAT 100
[2023-09-06 20:26] LABS: Glucose, Whole Blood 175 mg/dL (60-115)
[2023-09-06] MEDS: Sodium Phosphate,Mono-Dibasic 133 ML ENEMA PR (20:26)
--- NOTE | 2023-09-06 21:18 | PC.NURSE ---
Patient given fleet enema, reported a BM soon after.
[2023-09-06] MEDS: Lactulose 20 GM/30 ML SOLUTION 30 GM PO (22:05)
[2023-09-06] MEDS: Insulin Glargine,Hum.rec.anlog 100 UNIT/ML 10 ML VIAL 24 UNIT SUBCUT (22:05)
[2023-09-06] MEDS: Atorvastatin Calcium 20 MG TABLET PO (22:05)
[2023-09-06] MEDS: traZODone HCL 100 MG TABLET PO (23:15)
[2023-09-07 08:14] LABS: Glucose, Whole Blood 58 mg/dL (60-115)
[2023-09-07 08:25] VITALS: BP 148/92; PULSE 84; RESP 15; TEMP 36.7; O2SAT 100
--- NOTE | 2023-09-07 08:28 | PC.NURSE ---
Pt BG 58. Asymptomatic. Currently eating apple juice and snacks. Will recheck at 9:15am. Dr Griggs notified via [place] Orders. Charge nurse (Debby Oconnell) aware as well.
[2023-09-07] MEDS: Nicotine 7 MG PATCH.TD24 TRANSDERMA (08:56)
[2023-09-07] MEDS: Gabapentin 300 MG CAPSULE PO ×2 (08:56→15:01)
[2023-09-07 09:29] LABS: Glucose, Whole Blood 139 mg/dL (60-115)
--- NOTE | 2023-09-07 09:49 | HO.PSYCHPN ---
Subjective Subjective Date of Service: 09/07/23 Reason For Visit: SA Subjective Notes: Conditional Voluntary Interim History: Patient was seen and reviewed in rounds today. Records and plans were reviewed. He did have a large bowel movement after the fleets enema and I have also ordered some lactulose. He had an episode of vomiting last evening and did not want to eat too much today so as not to get nauseous. His blood sugar was quite low this morning but it came back up to 131. His repeat UA did not show any signs of infection after the 1st 1 had staph infection which was probably a contamination. No fever. No changes were made today Diagnostics Vital Signs (24Hr): Vital Signs - 24 hr 09/06/23 20:10 Temperature 98.8 F Pulse Rate 105 H Respiratory Rate 16 Blood Pressure 133/78 Pulse Oximetry 100 Oxygen Delivery Method Room Air BMI result Body Mass Index 17.8 Labs 09/04/23 20:27 09/04/23 20:27 Labs: Laboratory Results - last 48 hr 09/05/23 09/05/23 09/05/23 13:15 17:16 20:11 POC Glucose 276 H 269 H 163 H Urine Color Urine Appearance Urine pH Ur Specific [place] Urine Protein Urine Glucose (UA) Urine Ketones Urine Blood Urine Nitrite Ur Leukocyte Esterase 09/06/23 09/06/23 09/06/23 07:56 12:41 14:00 POC Glucose 168 H 276 H Urine Color Yellow Urine Appearance Cloudy Urine pH 8.0 Ur Specific [place] >= 1.030 H Urine Protein Negative Urine Glucose (UA) 250 H Urine Ketones Negative Urine Blood Negative Urine Nitrite Negative Ur Leukocyte Esterase Negative 09/06/23 09/06/23 09/07/23 18:05 20:11 08:01 POC Glucose 381 H* 175 H 58 L* Urine Color Urine Appearance Urine pH Ur Specific [place] Urine Protein Urine Glucose (UA) Urine Ketones Urine Blood Urine Nitrite Ur Leukocyte Esterase 09/07/23 09:24 POC Glucose 139 H Urine Color Urine Appearance Urine pH Ur Specific [place] Urine Protein Urine Glucose (UA) Urine Ketones Urine Blood Urine Nitrite Ur Leukocyte Esterase Medications Medications Current Medications Acetaminophen (Acetaminophen 325 Mg Tablet) 650 mg PO Q6H PRN PRN Reason: Headache/Pain Mild Scale (1-3) Al Hydroxide/Mg Hydroxide (Magnesium Hydrox/Alum Hydrox 30 Ml Oral.Susp) 30 ml PO Q6H PRN PRN Reason: Heartburn/Nausea Atorvastatin Calcium (Atorvastatin Calcium 20 Mg Tablet) 20 mg PO BEDTIME [facility] Last Admin: 09/06/23 22:05 Dose: 20 mg Gabapentin (Gabapentin 300 Mg Capsule) 300 mg PO TID [facility] Last Admin: 09/07/23 08:56 Dose: 300 mg Hydroxyzine HCl (Hydroxyzine Hcl 25 Mg Tablet) 25 mg PO Q6H PRN PRN Reason: Anxiety Insulin Glargine (Insulin Glargine,Hum.Rec.Anlog 100 Unit/Ml 10 Ml Vial) 24 unit SUBCUT BEDTIME [facility] Last Admin: 09/06/23 22:05 Dose: 24 unit Insulin Human Lispro (Insulin Lispro 100 Unit/Ml 3 Ml Vial) 8 unit SUBCUT TIDWM [facility] Last Admin: 09/07/23 09:36 Dose: Not Given Lactulose (Lactulose 20 Gm/30 Ml Solution) 30 gm PO TID [facility] Last Admin: 09/07/23 08:56 Dose: Not Given Magnesium Hydroxide (Milk Of Magnesia 30 Ml Oral.Susp) 30 ml PO DAILY PRN PRN Reason: Constipation Last Admin: 09/06/23 15:21 Dose: 30 ml Nicotine (Nicotine 7 Mg Patch.Td24) 7 mg TRANSDERMA DAILY [facility] Last Admin: 09/07/23 08:56 Dose: 7 mg Nicotine Polacrilex (Nicotine Polacrilex 2 Mg Gum) 4 mg BUCCAL Q2H PRN PRN Reason: Nicotine Cravings Simethicone (Simethicone 80 Mg Tab.Chew) 80 mg PO QIDWMHS PRN PRN Reason: gas Last Admin: 09/06/23 13:36 Dose: 80 mg Trazodone HCl (Trazodone Hcl 100 Mg Tablet) 100 mg PO BEDTIME PRN PRN Reason: insomnia Last Admin: 09/06/23 23:15 Dose: 100 mg Allergies Allergies Allergy/AdvReac Type Severity Reaction Status Date / Time No Known Allergies Allergy Verified 09/04/23 19:47 [No Known Allergies*] Assessment & Plan Assessment & Plan (1) Depression with suicidal ideation: Status: Acute Code(s): F32.A - Depression, unspecified; R45.851 - Suicidal ideations (2) Cocaine use disorder: Status: Acute Code(s): F14.10 - Cocaine abuse, uncomplicated (3) Nicotine dependence: Status: Acute Code(s): F17.200 - Nicotine dependence, unspecified, uncomplicated (4) Opioid abuse: Status: Acute Code(s): F11.10 - Opioid abuse, uncomplicated (5) Cannabis abuse: Status: Acute Code(s): F12.10 - Cannabis abuse, uncomplicated Plan contain - admit to M3, keep safe, Q15 min checks. declines SNRI for depression and diabetic neuropathy. agreeable to increase gabapentin to 300 TID (for neuropathy). declines rehab, minimizing substance use. declines psych meds. interested in returning to [facility] for therapy. 09/05: Continue current regimen and plans 09/06: Continue current plans and regimen. Reason for continued inpatient stay Substantial Risk for: rapid decompensation Time Spent With Patient Time: Total time managing care of this patient today ____ minutes.
[2023-09-07 12:51] LABS: Glucose, Whole Blood 335 mg/dL (60-115)
[2023-09-07] MEDS: Insulin Lispro 100 UNIT/ML 3 ML VIAL 8 UNIT SUBCUT ×2 (13:19→17:47)
[2023-09-07] MEDS: Acetaminophen 325 MG TABLET 650 MG PO (15:01)
[2023-09-07 17:38] LABS: Glucose, Whole Blood 492 mg/dL (60-115)
--- NOTE | 2023-09-07 17:56 | PC.NURSE ---
Addendum entered by Ngoc Welsh RN 09/07/23 18:58: Upon re-check, BG was 495 and pt was very lethargic. Dr Peñaloza notified via [employer] and rapid response called. Pt transferred off the unit to medical. Original Note: Pt BG 492. This scenario writer texted Dr. Peñaloza via [employer] who stated he will enter sliding scale. Ordered 8 units of Lispro given as well as water.
[2023-09-07 18:22] LABS: Glucose, Whole Blood 495 mg/dL (60-115)
[2023-09-07 18:57] LABS: Glucose, Whole Blood 400 mg/dL (60-115)
[2023-09-07 19:02] LABS: Hemoglobin 14.3 g/dl (14.0-18.0); Mean Corpuscular HGB Conc 33.3 g/dl (31.0-36.0); Mean Corpuscular Hemoglobin 28.6 pg (27.0-33.0); Platelet Count 281 X10*3/uL (160-400); Red Cell Distribution Width 12.8 % (11.0-16.0); White Blood Count 7.6 X10*3/uL (4.8-10.8)
--- NOTE | 2023-09-07 19:02 | PM.PSYDC ---
DS: Providers Provider Date of Service: 09/07/23 Date of admission: 09/05/23 11:51 Date of discharge: 09/07/23 Primary care physician: Unknown Physician Attending physician on admission: Jose Enrique Ndiaye Consults: 09/07/23 18:24 Consult to Hospitalist Routine Comment: Consulting Provider: Hospitalist Reason For Exam: POD 495 after 8 units; lethargic; r/o DKA Attending physician on discharge: Brian Peñaloza DS: Diagnosis Discharge Diagnosis (1) Depression with suicidal ideation: Status: Acute (2) Cocaine use disorder: Status: Acute (3) Nicotine dependence: Status: Acute (4) Opioid abuse: Status: Acute (5) Cannabis abuse: Status: Acute DS: Medications Discharge Medications Home Medications: Home Medications ?Medication ?Instructions ?Recorded ?Confirmed atorvastatin 20 mg tablet 20 mg PO BEDTIME 09/04/23 09/04/23 gabapentin 300 mg capsule 300 mg PO BEDTIME 09/04/23 09/04/23 insulin glargine 100 unit/mL (3 24 unit subcut BEDTIME 09/04/23 09/05/23 mL) subcutaneous pen (Lantus Solostar U-100 Insulin) insulin lispro 100 unit/mL 8 unit subcut TID 09/04/23 09/04/23 subcutaneous pen trazodone 100 mg tablet 100 mg PO BEDTIME PRN insomnia 09/04/23 09/04/23 Previous Rx's ?Medication ?Instructions ?Recorded acetaminophen 325 mg tablet 650 mg (2 x 325 mg) PO Q6H PRN 09/07/23 Headache/Pain Mild Scale (1-3) #0 tabs aluminum-magnesium hydroxide 200 30 ml PO Q6H PRN Heartburn/Nausea 09/07/23 mg-200 mg/5 mL oral suspension #0 mL (MAG-AL) dextrose 40 % oral gel (Glutose-15) 15 g PO Q15M PRN Per Hypoglycemia 09/07/23 Standing Ord. #0 grams gabapentin 300 mg capsule 300 mg PO TID #0 caps 09/07/23 hydroxyzine HCl 25 mg tablet 25 mg PO Q6H PRN Anxiety #0 tabs 09/07/23 insulin glargine 100 unit/mL 24 unit (0.24 mL) subcut BEDTIME 09/07/23 subcutaneous solution (Lantus #0 mL U-100 Insulin) insulin lispro 100 unit/mL 8 unit (0.08 mL) subcut TIDWM #0 mL 09/07/23 subcutaneous solution (Admelog U-100 Insulin lispro) insulin lispro 100 unit/mL See Protocol subcut QID PRN 09/07/23 subcutaneous solution (Admelog continued hyperglycemia #0 mL U-100 Insulin lispro) lactulose 20 gram/30 mL oral 30 g (45 mL) PO TID #0 mL 09/07/23 solution magnesium hydroxide 400 mg/5 mL 30 ml PO DAILY PRN Constipation #0 09/07/23 oral suspension (Milk of Magnesia) mL nicotine (polacrilex) 2 mg gum 4 mg buccal Q2H PRN Nicotine 09/07/23 Cravings #0 ea nicotine 7 mg/24 hr daily 7 mg transdermal DAILY #0 ea 09/07/23 transdermal patch simethicone 80 mg chewable tablet 80 mg PO QIDWMHS PRN gas #0 tabs 09/07/23 (Gas Relief (simethicone)) trazodone 100 mg tablet 100 mg PO BEDTIME PRN insomnia #0 09/07/23 tabs Mental Status Exam Mental Status Exam Narrative: lethargic Data Data Completed and Pending Completed studies during hospitalization [Text1]: 09/04/23 09/04/23 09/04/23 20:27 21:40 21:43 WBC 12.9 H RBC 4.81 Hgb 13.9 L Hct 41.9 L MCV 87.1 MCH 28.9 MCHC 33.2 RDW 12.9 Plt Count 268 MPV 11.1 Immature Gran % (Auto) 0.4 Neut % (Auto) 78.3 H Lymph % (Auto) 11.7 L [place] % (Auto) 8.0 Eos % (Auto) 1.0 Baso % (Auto) 0.6 Lymph # (Auto) 1.5 [place] # (Auto) 1.0 Eos # (Auto) 0.1 Baso # (Auto) 0.1 Abs Immat Gran (auto) 0.05 H Absolute Neuts (auto) 10.1 H Absolute Nucleated RBC 0.000 Nucleated RBC % (auto) 0.0 Sodium 138 Potassium 4.5 Chloride 99 Carbon Dioxide 28 Anion Gap 16 BUN 13 Creatinine 1.23 Estim Creat Clear Calc 75.0 Estimated GFR > 60 POC Glucose Random Glucose 293 H Estimat Average Glucose 186 Hemoglobin A1c % 8.1 H Calcium 10.2 D Total Bilirubin 0.3 AST 14 ALT 17 Alkaline Phosphatase 73 Total Protein 7.3 Albumin 4.2 Lipase 7 L Beta-Hydroxybutyrate Urine Color Yellow Urine Appearance Cloudy Urine pH 6.0 Ur Specific [place] >= 1.030 H Urine Protein Trace Urine Glucose (UA) >=1000 H Urine Ketones Negative Urine Blood Small (1+) H Urine Nitrite Negative Ur Leukocyte Esterase Negative Urine RBC >20 H Urine WBC 11-20 H Ur Squamous Epith Cells 11-20 Urine Bacteria 2+ Hyaline Casts 11-20 Salicylates < 5.0 L Urine Opiates Screen POSITIVE H Ur Buprenorphine Scrn Not Detected Ur Oxycodone Screen Not Detected Urine Methadone Screen Not Detected Urine Fentanyl Screen POSITIVE H Acetaminophen < 3 Ur Barbiturates Screen Not Detected Ur Phencyclidine Scrn Not Detected Ur Amphetamines Screen Not Detected U Benzodiazepines Scrn Not Detected Urine Cocaine Screen POSITIVE H U Marijuana (THC) Screen POSITIVE H Ethyl Alcohol < 10 09/05/23 09/05/23 09/05/23 00:04 06:15 13:15 WBC RBC Hgb Hct MCV MCH MCHC RDW Plt Count MPV Immature Gran % (Auto) Neut % (Auto) Lymph % (Auto) [place] % (Auto) Eos % (Auto) Baso % (Auto) Lymph # (Auto) [place] # (Auto) Eos # (Auto) Baso # (Auto) Abs Immat Gran (auto) Absolute Neuts (auto) Absolute Nucleated RBC Nucleated RBC % (auto) Sodium Potassium Chloride Carbon Dioxide Anion Gap BUN Creatinine Estim Creat Clear Calc Estimated GFR POC Glucose 302 H 168 H 276 H Random Glucose Estimat Average Glucose Hemoglobin A1c % Calcium Total Bilirubin AST ALT Alkaline Phosphatase Total Protein Albumin Lipase Beta-Hydroxybutyrate Urine Color Urine Appearance Urine pH Ur Specific [place] Urine Protein Urine Glucose (UA) Urine Ketones Urine Blood Urine Nitrite Ur Leukocyte Esterase Urine RBC Urine WBC Ur Squamous Epith Cells Urine Bacteria Hyaline Casts Salicylates Urine Opiates Screen Ur Buprenorphine Scrn Ur Oxycodone Screen Urine Methadone Screen Urine Fentanyl Screen Acetaminophen Ur Barbiturates Screen Ur Phencyclidine Scrn Ur Amphetamines Screen U Benzodiazepines Scrn Urine Cocaine Screen U Marijuana (THC) Screen Ethyl Alcohol 09/05/23 09/05/23 09/06/23 17:16 20:11 07:56 WBC RBC Hgb Hct MCV MCH MCHC RDW Plt Count MPV Immature Gran % (Auto) Neut % (Auto) Lymph % (Auto) [place] % (Auto) Eos % (Auto) Baso % (Auto) Lymph # (Auto) [place] # (Auto) Eos # (Auto) Baso # (Auto) Abs Immat Gran (auto) Absolute Neuts (auto) Absolute Nucleated RBC Nucleated RBC % (auto) Sodium Potassium Chloride Carbon Dioxide Anion Gap BUN Creatinine Estim Creat Clear Calc Estimated GFR POC Glucose 269 H 163 H 168 H Random Glucose Estimat Average Glucose Hemoglobin A1c % Calcium Total Bilirubin AST ALT Alkaline Phosphatase Total Protein Albumin Lipase Beta-Hydroxybutyrate Urine Color Urine Appearance Urine pH Ur Specific [place] Urine Protein Urine Glucose (UA) Urine Ketones Urine Blood Urine Nitrite Ur Leukocyte Esterase Urine RBC Urine WBC Ur Squamous Epith Cells Urine Bacteria Hyaline Casts Salicylates Urine Opiates Screen Ur Buprenorphine Scrn Ur Oxycodone Screen Urine Methadone Screen Urine Fentanyl Screen Acetaminophen Ur Barbiturates Screen Ur Phencyclidine Scrn Ur Amphetamines Screen U Benzodiazepines Scrn Urine Cocaine Screen U Marijuana (THC) Screen Ethyl Alcohol 09/06/23 09/06/23 09/06/23 12:41 14:00 18:05 WBC RBC Hgb Hct MCV MCH MCHC RDW Plt Count MPV Immature Gran % (Auto) Neut % (Auto) Lymph % (Auto) [place] % (Auto) Eos % (Auto) Baso % (Auto) Lymph # (Auto) [place] # (Auto) Eos # (Auto) Baso # (Auto) Abs Immat Gran (auto) Absolute Neuts (auto) Absolute Nucleated RBC Nucleated RBC % (auto) Sodium Potassium Chloride Carbon Dioxide Anion Gap BUN Creatinine Estim Creat Clear Calc Estimated GFR POC Glucose 276 H 381 H* Random Glucose Estimat Average Glucose Hemoglobin A1c % Calcium Total Bilirubin AST ALT Alkaline Phosphatase Total Protein Albumin Lipase Beta-Hydroxybutyrate Urine Color Yellow Urine Appearance Cloudy Urine pH 8.0 Ur Specific [place] >= 1.030 H Urine Protein Negative Urine Glucose (UA) 250 H Urine Ketones Negative Urine Blood Negative Urine Nitrite Negative Ur Leukocyte Esterase Negative Urine RBC Urine WBC Ur Squamous Epith Cells Urine Bacteria Hyaline Casts Salicylates Urine Opiates Screen Ur Buprenorphine Scrn Ur Oxycodone Screen Urine Methadone Screen Urine Fentanyl Screen Acetaminophen Ur Barbiturates Screen Ur Phencyclidine Scrn Ur Amphetamines Screen U Benzodiazepines Scrn Urine Cocaine Screen U Marijuana (THC) Screen Ethyl Alcohol 09/06/23 09/07/23 09/07/23 20:11 08:01 09:24 WBC RBC Hgb Hct MCV MCH MCHC RDW Plt Count MPV Immature Gran % (Auto) Neut % (Auto) Lymph % (Auto) [place] % (Auto) Eos % (Auto) Baso % (Auto) Lymph # (Auto) [place] # (Auto) Eos # (Auto) Baso # (Auto) Abs Immat Gran (auto) Absolute Neuts (auto) Absolute Nucleated RBC Nucleated RBC % (auto) Sodium Potassium Chloride Carbon Dioxide Anion Gap BUN Creatinine Estim Creat Clear Calc Estimated GFR POC Glucose 175 H 58 L* 139 H Random Glucose Estimat Average Glucose Hemoglobin A1c % Calcium Total Bilirubin AST ALT Alkaline Phosphatase Total Protein Albumin Lipase Beta-Hydroxybutyrate Urine Color Urine Appearance Urine pH Ur Specific [place] Urine Protein Urine Glucose (UA) Urine Ketones Urine Blood Urine Nitrite Ur Leukocyte Esterase Urine RBC Urine WBC Ur Squamous Epith Cells Urine Bacteria Hyaline Casts Salicylates Urine Opiates Screen Ur Buprenorphine Scrn Ur Oxycodone Screen Urine Methadone Screen Urine Fentanyl Screen Acetaminophen Ur Barbiturates Screen Ur Phencyclidine Scrn Ur Amphetamines Screen U Benzodiazepines Scrn Urine Cocaine Screen U Marijuana (THC) Screen Ethyl Alcohol 09/07/23 09/07/23 09/07/23 12:47 17:29 18:13 WBC RBC Hgb Hct MCV MCH MCHC RDW Plt Count MPV Immature Gran % (Auto) Neut % (Auto) Lymph % (Auto) [place] % (Auto) Eos % (Auto) Baso % (Auto) Lymph # (Auto) [place] # (Auto) Eos # (Auto) Baso # (Auto) Abs Immat Gran (auto) Absolute Neuts (auto) Absolute Nucleated RBC Nucleated RBC % (auto) Sodium Potassium Chloride Carbon Dioxide Anion Gap BUN Creatinine Estim Creat Clear Calc Estimated GFR POC Glucose 335 H 492 H* 495 H* Random Glucose Estimat Average Glucose Hemoglobin A1c % Calcium Total Bilirubin AST ALT Alkaline Phosphatase Total Protein Albumin Lipase Beta-Hydroxybutyrate Urine Color Urine Appearance Urine pH Ur Specific [place] Urine Protein Urine Glucose (UA) Urine Ketones Urine Blood Urine Nitrite Ur Leukocyte Esterase Urine RBC Urine WBC Ur Squamous Epith Cells Urine Bacteria Hyaline Casts Salicylates Urine Opiates Screen Ur Buprenorphine Scrn Ur Oxycodone Screen Urine Methadone Screen Urine Fentanyl Screen Acetaminophen Ur Barbiturates Screen Ur Phencyclidine Scrn Ur Amphetamines Screen U Benzodiazepines Scrn Urine Cocaine Screen U Marijuana (THC) Screen Ethyl Alcohol 09/07/23 09/07/23 18:35 18:56 WBC Pending RBC Pending Hgb Pending Hct Pending MCV Pending MCH Pending MCHC Pending RDW Pending Plt Count Pending MPV Pending Immature Gran % (Auto) Neut % (Auto) Lymph % (Auto) [place] % (Auto) Eos % (Auto) Baso % (Auto) Lymph # (Auto) [place] # (Auto) Eos # (Auto) Baso # (Auto) Abs Immat Gran (auto) Absolute Neuts (auto) Absolute Nucleated RBC Pending Nucleated RBC % (auto) Pending Sodium Pending Potassium Pending Chloride Pending Carbon Dioxide Pending Anion Gap Pending BUN Pending Creatinine Pending Estim Creat Clear Calc Pending Estimated GFR Pending POC Glucose 400 H* Random Glucose Pending Estimat Average Glucose Hemoglobin A1c % Calcium Pending Total Bilirubin Pending AST Pending ALT Pending Alkaline Phosphatase Pending Total Protein Pending Albumin Pending Lipase Beta-Hydroxybutyrate Pending Urine Color Urine Appearance Urine pH Ur Specific [place] Urine Protein Urine Glucose (UA) Urine Ketones Urine Blood Urine Nitrite Ur Leukocyte Esterase Urine RBC Urine WBC Ur Squamous Epith Cells Urine Bacteria Hyaline Casts Salicylates Urine Opiates Screen Ur Buprenorphine Scrn Ur Oxycodone Screen Urine Methadone Screen Urine Fentanyl Screen Acetaminophen Ur Barbiturates Screen Ur Phencyclidine Scrn Ur Amphetamines Screen U Benzodiazepines Scrn Urine Cocaine Screen U Marijuana (THC) Screen Ethyl Alcohol 09/04/23 Unknown Urine clean catch - Urine tillman top Urine Culture - Final Staphylococcus lugdunensis DS: Summary Hospital Course Hospital Course: per CARE team micky pt was BIBA to ED after intentional heroin overdose, being found in his mother's backyard. he was initially unresponsive but reportedly did not require/receive narcan. pt reported to ED RN his intentional overdose as well as numerous overdose attempts on insulin (type I DM). c/o stress/overwhelm with psychosocial stressors and chronic substance use. on interview with CARE team staff, he endorsed SI with plan to overdose on heroin or insulin. he also reported VH of scary shadowy figures sometimes. denies AH, endorses insomnia and anorexia. on interview with MD: don't like how i'm living my life. friends come and go. family... not the same no more. sister doesn't come by anymore. family look at me differently... as if i'm lying. [doesn't want detox/rehab bcse] i'm not on drugs. i only did that to kill myself. i want to do what i used to do back in the day. play basketball and work. but can't do either of those things because of diabetic neuropathy. discussion held around his dosing of gabapentin 300 mg QHS, educated he will likely need [id number] mg daily to be helpful for neuropathic pain. agrees to dose increase to 300 TID. declines referral to rehab, saying he quit using cocaine 5-6 months ago and only used heroin this one time to try to kill himself. otherwise he just uses cannabis daily. states he is not depressed every day, some days he feels fine, so he does not want to start antidepressant medication. he was educated re SNRIs and possible dual benefit. he has a therapist at [facility], Ana Rosa, that he would like to continue to work with. he is very ambivalent about being in the hospital. MD signed section 12b at end of interview as pt was unable to make a decision for himself about signing in. shortly after, pt signed CV and then 3-day notice. he would prefer not to remin in the hospital. HOSPITAL COURSE: from 09/04 to 09/06 declines SNRI for depression and diabetic neuropathy. agreeable to increase gabapentin to 300 TID (for neuropathy). declines rehab, minimizing substance use. declines psych meds. interested in returning to [facility] for therapy. on 09/06 pt became hyperglycemic and lethargic. Rapid Repsonse called and pt transfered to medical floor Status at Discharge Functional status at discharge: bed bound Overall status at discharge: patient is not back to baseline Time Spent with Patient Time attestation: Total time managing care of this patient today __50__ minutes. Time spent: Greater than 30 minutes Discharge Plan Discharge Anticipated Discharge Date/Time: 09/07/23 18:51 Patient Disposition: Xfer Other Discharge Diagnosis: depression; hyperglycemia Referrals: Physician,Unknown J [Primary Care Provider] - 1 Week Discharge Medications: New acetaminophen 325 mg Tablet 650 mg PO Q6H PRN (Reason: Headache/Pain Mild Scale (1-3)) Qty: 0 0RF nicotine (polacrilex) 2 mg Gum 4 mg buccal Q2H PRN (Reason: Nicotine Cravings) Qty: 0 0RF trazodone 100 mg Tablet 100 mg PO BEDTIME PRN (Reason: insomnia) Qty: 0 0RF gabapentin 300 mg Capsule 300 mg PO TID Qty: 0 0RF hydroxyzine HCl 25 mg Tablet 25 mg PO Q6H PRN (Reason: Anxiety) Qty: 0 0RF nicotine 7 mg/24 hr Patch 24 Hour 7 mg transdermal DAILY Qty: 0 0RF dextrose [Glutose-15] 40 % Gel 15 g PO Q15M PRN (Reason: Per Hypoglycemia Standing Ord.) Qty: 0 0RF Protocol: Glucose Gel Hypoglycemia Standing Order Protocol Text: For patients able to take PO (patient cooperative and able to swallow). Give Glucose Gel 15 gm PO for Blood Glucose (BG) < 70. Repeat BG every 15 min until BG > 70 x 3, if BG still < 70 and/or patient symptomatic repeat glucose gel or rapid acting carbohydrate. Notify MD if BG does not improve with treatment. insulin glargine [Lantus U-100 Insulin] 100 unit/mL Solution 24 unit subcut BEDTIME Qty: 0 0RF magnesium hydroxide [Milk of Magnesia] 400 mg/5 mL Suspension 30 ml PO DAILY PRN (Reason: Constipation) Qty: 0 0RF insulin lispro [Admelog U-100 Insulin lispro] 100 unit/mL Solution 8 unit subcut TIDWM Qty: 0 0RF insulin lispro [Admelog U-100 Insulin lispro] 100 unit/mL Solution See Protocol subcut QID PRN (Reason: continued hyperglycemia) Qty: 0 0RF Protocol: Insulin Correction Scale Less than or equal to 110 ---- Give (units): 0 111 to 150 Give (units): 0 151 to 200 Give (units): 2 201 to 250 Give (units): 4 251 to 300 Give (units): 6 301 to 350 Give (units): 8 Greater than 350 Give (units): 10 Call MD if Blood Glucose > : 350 simethicone [Gas Relief (simethicone)] 80 mg Tablet,Chewable 80 mg PO QIDWMHS PRN (Reason: gas) Qty: 0 0RF MAG-AL 200-200 mg/5 mL Suspension 30 ml PO Q6H PRN (Reason: Heartburn/Nausea) Qty: 0 0RF lactulose 20 gram/30 mL Solution 30 g PO TID Qty: 0 0RF Continued trazodone 100 mg tablet 100 mg PO BEDTIME PRN (Reason: insomnia) gabapentin 300 mg capsule 300 mg PO BEDTIME insulin lispro 100 unit/mL insulin pen 8 unit subcut TID atorvastatin 20 mg tablet 20 mg PO BEDTIME insulin glargine [Lantus Solostar U-100 Insulin] 100 unit/mL (3 mL) insulin pen 24 unit subcut BEDTIME Discharge Orders: Discharge Order (Routine); Ordered 09/07/23 Ordered By: Brian Peñaloza Diet: per medical floor Activity on Discharge: As tolerated Stand Alone Forms: Patient Portal Discharge page Print Language: Ugandan Care Plan Goals: dc'd to medical Health Concerns: dc'd to medical Plan of Treatment: dc'd to medical Assessment: dc'd to medical Discharge Date/Time: 09/07/23 19:10
[2023-09-07 19:07] LABS: VBG Base Excess 6.1 mmol/L; VBG HCO3 31 mmol/L (22-26); VBG pCO2 45 mmHg; VBG pH 7.44 (7.32-7.43); VBG pO2 41 mmHg
[2023-09-07 19:08] LABS: Venous Blood Gas Refer to POC result
[2023-09-07 19:23] LABS: Beta-Hydroxybutyrate 0.18 mmol/L (0.02-0.27)
[2023-09-07 19:51] LABS: Alanine Aminotransferase 25 U/L (0-40); Albumin Level 4.2 g/dL (3.5-5.0); Alkaline Phosphatase 79 U/L (39-117); Anion Gap 18 (12-20); Aspartate Amino Transferase 15 U/L (5-37); Bilirubin Total 0.2 mg/dL (0.0-1.0); Blood Urea Nitrogen 15 mg/dL (9-16); Calcium 10.3 mg/dL (8.4-10.2); Carbon Dioxide 27 mmol/L (22-29); Chloride 99 mmol/L (96-108); Creatinine Clr Calc Pharmacy 86.6; Estimated Glomerular Filt Rate > 60; Glucose Random 370 mg/dL (60-115); Potassium 4.2 mmol/L (3.3-5.1); Sodium 140 mmol/L (135-145); Total Protein 7.5 g/dL (6.5-8.0)
== END 2023-09-07 19:10 | disposition short-term general hospital (02) | DRG 754 ==
LOC: HO.ED 23:57 → HO.PADLT16 09-05 12:10
PROVIDERS: Physician Assistant Medical; Psychiatry & Neurology Psychiatry; Student in an Organized Health Care Education/Training Program; Admitting Provider Psychiatry & Neurology Psychiatry; Emergency Provider Internal Medicine; Visit Provider Psychiatry & Neurology Psychiatry
DX: F32.A Depression, unspecified (principal); E10.40 Type 1 diabetes mellitus with diabetic neuropathy, unspecified; F11.10 Opioid abuse, uncomplicated; E10.65 Type 1 diabetes mellitus with hyperglycemia; F12.10 Cannabis abuse, uncomplicated; F17.200 Nicotine dependence, unspecified, uncomplicated; Z71.6 Tobacco abuse counseling; T40.1X2A Poisoning by heroin, intentional self-harm, initial encounter; Z79.4 Long term (current) use of insulin; Z79.899 Other long term (current) drug therapy
CPT/HCPCS: 36415; 80053; 80143; 80179; 80307; 81001; 81003; 82010; 82803; 82947; 83036; 83690; 85025; 85027; 87086; 87088; 87186; 93005; 99285; S9485

== ENCOUNTER → 2023-09-05 08:59 | Outpatient (BNV) | payer OTHER, SELFPAY | PROVIDERS: Admitting Provider Psychiatry & Neurology Psychiatry; Emergency Provider Internal Medicine; Visit Provider Internal Medicine | DX: I45.81 Long QT syndrome (principal) | CPT/HCPCS: 93010 ==

== ENCOUNTER → 2023-09-05 11:51 | Outpatient (BNV) | payer OTHER, SELFPAY | PROVIDERS: Admitting Provider Psychiatry & Neurology Psychiatry; Emergency Provider Internal Medicine; Visit Provider Psychiatry & Neurology Psychiatry | DX: F33.2 Major depressive disorder, recurrent severe without psychotic features (principal); R45.851 Suicidal ideations; F14.10 Cocaine abuse, uncomplicated; F11.10 Opioid abuse, uncomplicated; F17.200 Nicotine dependence, unspecified, uncomplicated; F12.10 Cannabis abuse, uncomplicated | CPT/HCPCS: 90792; 99231; 99232; 99239; 99499 ==

== ENCOUNTER 2023-09-07 19:19 | Observation (INO) | payer OTHER, SELFPAY ==
--- NOTE | ~2023-09-07 | XR_ITS ---
EXAMINATION: XR CHEST XR KUB CLINICAL INFORMATION: Lethargy. Abdominal pain. COMPARISON: CXR from 04/16/2020. Abdomen ultrasound from 10/17/2022. TECHNIQUE: Chest, AP view Abdomen, AP view FINDINGS: CHEST: Lungs are well-inflated and clear. Trachea is midline in position. No interstitial disease, consolidation or mass. No pleural effusion or pneumothorax. Cardiac silhouette and pulmonary vessels are normal in size. The mediastinum and chucho have normal contour. The visualized bones and upper abdomen are unremarkable. ABDOMEN: Normal bowel gas pattern. The bowel gas is seen to level of the sigmoid and rectum. No dilated bowel loops or pneumoperitoneum. No radiographically visible renal stones. Skeletal structures are unremarkable. XR/XR KUB IMPRESSION: * Lungs have a normal appearance. No acute cardiopulmonary abnormality. * Normal abdominal radiograph. No evidence of bowel obstruction.
--- NOTE | ~2023-09-07 | XR_ITS ---
EXAMINATION: XR CHEST XR KUB CLINICAL INFORMATION: Lethargy. Abdominal pain. COMPARISON: CXR from 04/16/2020. Abdomen ultrasound from 10/17/2022. TECHNIQUE: Chest, AP view Abdomen, AP view FINDINGS: CHEST: Lungs are well-inflated and clear. Trachea is midline in position. No interstitial disease, consolidation or mass. No pleural effusion or pneumothorax. Cardiac silhouette and pulmonary vessels are normal in size. The mediastinum and chucho have normal contour. The visualized bones and upper abdomen are unremarkable. ABDOMEN: Normal bowel gas pattern. The bowel gas is seen to level of the sigmoid and rectum. No dilated bowel loops or pneumoperitoneum. No radiographically visible renal stones. Skeletal structures are unremarkable. XR/XR chest 1V IMPRESSION: * Lungs have a normal appearance. No acute cardiopulmonary abnormality. * Normal abdominal radiograph. No evidence of bowel obstruction.
--- OUTSIDE RECORDS SUMMARY | 2023-09-07 19:23 | XMS_ITS | Continuity of Care Document ---
Author Organization [facility] Address [address] [place] [id number] Care Team Providers Care Activities Director Name Role Phone Lilibeth Joseph MD Primary Care Physician [phone] [facility] [place] 11/29/22 - 12/29/22 [facility]/[address] [address]- Attending Physician: Marcelle Diaz Admitting Physician: Marcelle Diaz Referring Physician: Marcelle Diaz Allergies, Adverse Reactions, Alerts No Known Allergies Immunizations Given and Recorded Vaccine Date Status Refusal Reason Influenza Inactive (IM) (oldterm) 1 02/22/09 Given influ virus vac, H1N1, inactive(oldterm) 2 02/22/09 Given 1Admin Note: vis given 2Admin Note: VIS given Medications Aqua Care Sterile Saline 0.9% irrigation solution See Instructions, to use for cleansing BID before cream application, # 1 each, 0 Refills, Maintenance, 11/29/22 10:21:00 EDT, [id number], Partial fill upon patient request if the prescriptionis for a schedule II opioid drug., to use for clean... Start Date: 11/29/22 Status: Ordered fluconazole 150 mg oral tablet 1 tablet = 150 mg, By Mouth, Once, # 1 tablet, 0 Refills, Soft Stop, 11/29/22 10:18:00 EDT, Tablet,[id number], Partial fill upon patient request if the prescription is for a schedule II opioid drug. Start Date: 11/29/22 Status: Ordered Freestyle Lite Test Strips See Instructions, # 100 application, Refills 1, Tot. Refills 1, Maintenance, TEST 3X/DAY, 08/20/12 13:19:52 Start Date: 08/20/12 Status: Ordered Freestyle Lite Test Strips See Instructions, # 150 each, Refills 11, Tot. Refills 11, Maintenance, use as directed for Type 1 Diabetes Mellitus; tests 5-6 times/d, 12/07/12 14:23:31, Compound Start Date: 12/07/12 Stop Date: 12/02/13 Status: Ordered Glucagon Emergency Kit See Instructions, PRN, # 2 each, Refills 3, Tot. Refills 3, Maintenance, Blood Glucose, use as directed for Type 1 Diabetes Mellitus, 09/20/10 14:42:48 Start Date: 09/20/10 Stop Date: 01/18/11 Status: Ordered Humalog Kwik Pen 100 units/mL subcutaneous injection See Instructions, PRN per glucose test, inject up to 22 units SC per sliding scale 3 times a day before meals. for T1DM/250.00. 90 day supply, # 75 mL, 2 Refills, Maintenance, 07/14/14 9:48:17, inject up to 22 units SC per sliding scale 3 times... Start Date: 07/14/14 Status: Ordered Lantus Solostar Pen 100 units/mL subcutaneous solution See Instructions, inject 45 units SC Daily at bedtime. for T1DM/250.00. 90 day supply, # 75 mL, 2 Refills, Maintenance, 07/14/14 9:49:35, inject 45 units SC Daily at bedtime. for T1DM/250.00. 90 day supply Start Date: 07/14/14 Status: Ordered Pen Stover, 31 G x 5 mm BD Ultra Fine III See Instructions, # 400 each, Refills 2, Tot. Refills 2, Maintenance, use to inject insulin 4 timesdaily. for Type 1 Diabetes Mellitus/250.00. 90 day supply, 07/14/14 9:52:04, Compound Start Date: 07/14/14 Stop Date: 04/10/15 Status: Ordered Problem List Condition Confirmation Course Effective Dates Status Health St [facility] Informant Bipolar disorder Confirmed Active Type 1 diabetes mellitus Confirmed Active Patient Care team information Care Team Personnel Name: Lilibeth Joseph MD Position: [facility] Outreach Member Role: PCP Address: Address: [address] [place] [phone]- Care Team Related Persons Name: RIVER JHAVERI Address: home [address] [place] [address] Name: MUKESH JHAVERI Address: home [address] [place] [address]
[2023-09-07 20:00] VITALS: BP 129/77; PULSE 106; RESP 20; TEMP 37.7; O2SAT 100
--- NOTE | 2023-09-07 21:07 | PM.IMHP ---
History of Present Illness Date of Service: 09/07/23 Attending physician on admission: David Boss Chief Complaint: Lethargy, AMS Patient is a 33-year-old male with a PMH significant for poorly controlled type 1 diabetes mellitus, HLD, polysubstance use disorder, MDD with SI, and medication noncompliance who was admitted to [facility] psych unit earlier this evening for increasing depression with SI with attempted overdose on heroin. Patient was found unresponsive in his mother's back yd after intentionally overdosing on heroin in attempt to end his life. Was ambulatory by the time that EMS arrived on the scene and did not require Narcan. Patient also apparently has tried overdosing multiple times in the past on insulin. Patient was admitted the psych floor 09/04 from our ED. Rapid response was called as patient became lethargic and altered while on the unit. At time of interview and exam patient arousable to verbal stimuli, but lethargic and with his eyes closed. Complains of abdominal discomfort that he attributes to gas and some nausea and vomiting last night. Denies lightheadedness or dizziness. Denies any significant pain. No chest pain/pressure, palpitations. No shortness a breath or difficulty breathing. Denies fever, chills. No recent illnesses. Denies diarrhea. Patient's POC was noted to be 400. Patient has a long history of medication noncompliance and poorly controlled type 1 diabetes. Sugars have been variable today as low as 58 in the morning but mostly hypoglycemic as high as 495. CBC, CMP, VBG, and beta hydroxybutyrate were ordered and drawn. Labs were significant for random glucose of 370, otherwise grossly unremarkable. No leukocytosis. Stable H&H. No electrolyte abnormalities. Renal and hepatic function WNL. Beta hydroxybutyrate WNL at 0.18. Review of Systems Review of Systems: Lethargy, altered mental status Nausea, vomiting Abdominal discomfort Denies chest pain/pressure, palpitations No lightheadedness or dizziness Denies headache or acute vision changes No shortness a breath or difficulty breathing Denies fever, chills [facility] Medical History Nicotine dependence MDD (major depressive disorder), severe Cocaine use disorder Noncompliance Dental decay Diabetes mellitus type 1, uncontrolled Hyperlipidemia LDL goal <100 Family History Maternal Grandmother Diabetes, type I Surgical History No history of previous surgery Social History Household Members: Family Housing: House Housing Other:: rents a room Do you presently have visiting nurse or other home services: No Unable to assess alcohol history related to: Unknown Alcohol intake: never Patient Tobacco Use Status: Current everyday Tobacco user Tobacco use type: Cigarette Cigarettes Per Day: 5 e-Cigarette/Vaping Use: Never Used Second Hand Smoke Exposure: No Substance Use Type: Crack/Cocaine, Heroin and Marijuana Advance Directives: No Advance Directives Information Provided: No service: No Current occupational status: employed Cognitive needs: No Hearing needs: No Vision needs: No Meds Allergies Allergy/AdvReac Type Severity Reaction Status Date / Time No Known Allergies Allergy Verified 09/04/23 19:47 [No Known Allergies*] Active Medications: Current Medications Acetaminophen (Acetaminophen 325 Mg Tablet) 650 mg PO Q6H PRN PRN Reason: Pain, Mild (Pain Scale 1-3) Al Hydroxide/Mg Hydroxide (Magnesium Hydrox/Alum Hydrox 30 Ml Oral.Susp) 30 ml PO Q6H PRN PRN Reason: Heartburn/Nausea Atorvastatin Calcium (Atorvastatin Calcium 20 Mg Tablet) 20 mg PO BEDTIME [facility] Benzonatate (Benzonatate 100 Mg Capsule) 100 mg PO TID PRN PRN Reason: Cough Docusate Sodium (Docusate Sodium 100 Mg Capsule) 100 mg PO DAILY PRN PRN Reason: Constipation Enoxaparin Sodium (Enoxaparin Sodium 40 Mg/0.4 Ml Syringe) 40 mg SUBCUT Q24H [facility] Gabapentin (Gabapentin 300 Mg Capsule) 300 mg PO TID [facility] Glucose (Glucose Gel 15 Gm Gel..Gram.) 15 gm PO Q15M PRN; Protocol PRN Reason: per Hypoglycemia Standing Ord. Hydroxyzine HCl (Hydroxyzine Hcl 25 Mg Tablet) 25 mg PO Q6H PRN PRN Reason: Anxiety Dextrose (D10) 250 mls @ 750 mls/hr IV Q15M PRN; Protocol PRN Reason: per Hypoglycemia Standing Ord. Sodium Chloride (Ns) 1,000 mls @ 999 mls/hr IV .Q1H1M [facility] Stop: 09/07/23 21:15 Insulin Glargine (Insulin Glargine,Hum.Rec.Anlog 100 Unit/Ml 10 Ml Vial) 20 unit SUBCUT BEDTIME [facility] Insulin Human Lispro (Insulin Lispro 100 Unit/Ml 3 Ml Vial) 0 unit SUBCUT QIDACHS [facility]; Protocol Insulin Human Lispro (Insulin Lispro 100 Unit/Ml 3 Ml Vial) 8 unit SUBCUT TIDWM [facility] Lactulose (Lactulose 20 Gm/30 Ml Solution) 30 gm PO TID [facility] Magnesium Hydroxide (Milk Of Magnesia 30 Ml Oral.Susp) 30 ml PO DAILY PRN PRN Reason: Constipation Melatonin (Melatonin 3 Mg Tablet) 6 mg PO BEDTIME PRN PRN Reason: Insomnia Nicotine (Nicotine 7 Mg Patch.Td24) 7 mg TRANSDERMA DAILY [facility] Nicotine Polacrilex (Nicotine Polacrilex 2 Mg Gum) 4 mg BUCCAL Q2H PRN PRN Reason: Nicotine Cravings Ondansetron HCl (Ondansetron Hcl 4 Mg/2 Ml Vial) 4 mg IVPUSH Q8H PRN PRN Reason: Nausea and Vomiting Simethicone (Simethicone 80 Mg Tab.Chew) 80 mg PO QIDWMHS PRN PRN Reason: gas Sodium Chloride (0.9 % Sodium Chloride Flush 3 Ml Syringe) 3 ml IVFLUSH QSHIFT [facility] Trazodone HCl (Trazodone Hcl 100 Mg Tablet) 100 mg PO BEDTIME PRN PRN Reason: insomnia Home Medications ?Medication ?Instructions ?Recorded ?Confirmed ?Last Taken ?Type atorvastatin 20 mg tablet 20 mg PO BEDTIME 09/04/23 09/04/23 Unknown History gabapentin 300 mg capsule 300 mg PO BEDTIME 09/04/23 09/04/23 Unknown History insulin glargine 100 unit/mL (3 24 unit subcut BEDTIME 09/04/23 09/05/23 Unknown History mL) subcutaneous pen (Lantus Solostar U-100 Insulin) insulin lispro 100 unit/mL 8 unit subcut TID 09/04/23 09/04/23 Unknown History subcutaneous pen trazodone 100 mg tablet 100 mg PO BEDTIME PRN insomnia 09/04/23 09/04/23 Unknown History Physical Exam Vital Signs and Narrative: Constitutional: Somnolent but arousable, capable of answering in full sentences. In no acute distress. Mental Status: Oriented to person, place and time. Eyes: Pupils are equal, round, and reactive to light. Ear, Nose, and Throat: Oropharynx clear, mucous membranes moist. Ears and nose without deformities. Trachea midline. Respiratory: Clear to auscultation bilaterally. No wheezing, rales, or rhonchi. Cardiovascular: S1, S2 regular. No murmurs, rubs, or gallops. Gastrointestinal: Abdomen soft, with diffuse mild tenderness. Normal bowel sounds. Neurologic: Cranial nerves II-XII are grossly intact bilaterally. No focal neurological deficits. Moves all extremities spontaneously. Skin: Warm, dry. Extremities: No edema. Assessment and Plan (1) Acute metabolic encephalopathy: Status: Acute Plan Patient is a 33-year-old male with a PMH significant for poorly controlled type 1 diabetes mellitus, HLD, polysubstance use disorder, MDD with SI, and medication noncompliance who was admitted to [facility] psych unit earlier this evening for increasing depression with SI with attempted overdose on heroin. Patient became lethargic and altered while on the unit, and will be brought to the hospital floor under observation and further workup of acute metabolic encephalopathy. Acute metabolic encephalopathy Patient with lethargy, altered mental status while on the unit Unclear etiology: Hyperglycemia versus drug use versus medications CBC, BMP, beta hydroxybutyrate all unremarkable Will check CXR, UA Will give 1 L bolus IVF Monitor mentation Type 1 diabetes, poorly controlled Patient with elevated blood glucose often in the 400-500s Insulin lispro 8 units with meals, SSI, Lantus Diabetic diet Abdominal discomfort Will get KUB Continue simethicone Mood disorder with SI with recent heroin overdose attempt Continue mood stabilizers One-to-one sitter HLD Continue statin Nicotine dependence Nicotine replacement therapy Full Code Attending:?Dr. Boss DVT Prophylaxis: Lovenox Patient will be brought to the hospital under observation for treatment and further evaluation of acute encephalopathy in the setting of hyperglycemia versus drug use versus medications. Quality Stroke Does the patient have a stroke diagnosis?: No VTE Prior VTE?: No VTE Risk Level:: Medical - moderate - high VTE Device Contraindication: Treatment Not Indicated VTE Drug Contraindication: N/A - Med Ordered
[2023-09-07] MEDS: 0.9 % Sodium Chloride 1,000 ML 999 ML IV (21:33)
[2023-09-07 21:34] LABS: Glucose, Whole Blood 129 mg/dL (60-115)
[2023-09-07] MEDS: Enoxaparin Sodium 40 MG/0.4 ML SYRINGE SUBCUT (21:35)
[2023-09-07] MEDS: Insulin Glargine,Hum.rec.anlog 100 UNIT/ML 10 ML VIAL 20 UNIT SUBCUT (21:37)
[2023-09-07] MEDS: Melatonin 3 MG TABLET 6 MG PO (21:37)
[2023-09-07] MEDS: Gabapentin 300 MG CAPSULE PO (21:37)
[2023-09-07] MEDS: Atorvastatin Calcium 20 MG TABLET PO (21:37)
[2023-09-07] MEDS: 0.9 % Sodium Chloride Flush 3 ML SYRINGE IVFLUSH (21:38)
[2023-09-08 01:24] LABS: Glucose, Whole Blood 130 mg/dL (60-115)
[2023-09-08] MEDS: traZODone HCL 100 MG TABLET PO (02:17)
[2023-09-08 04:00] VITALS: BP 137/85; PULSE 88; RESP 20; TEMP 36.9; O2SAT 99
[2023-09-08 06:08] VITALS: BMI 18.7
--- NOTE | 2023-09-08 06:28 | PC.NURSE ---
pt refused imaging to be done at bedside shortly after arrival to unit, md aware.
[2023-09-08 07:16] LABS: Glucose, Whole Blood 88 mg/dL (60-115)
[2023-09-08 07:44] VITALS: BP 129/84; PULSE 87; RESP 16; TEMP 36.8; O2SAT 99
--- NOTE | 2023-09-08 07:54 | PHA.MEDREC ---
Pharmacy Consult ? Medication Reconciliation Pharmacy has completed the medication reconciliation. used discharge summary from [facility].
[2023-09-08] MEDS: Nicotine 7 MG PATCH.TD24 TRANSDERMA (08:05)
[2023-09-08] MEDS: Gabapentin 300 MG CAPSULE PO ×2 (08:05→16:46)
[2023-09-08] MEDS: 0.9 % Sodium Chloride Flush 3 ML SYRINGE IVFLUSH ×2 (08:09→16:50)
[2023-09-08 10:57] LABS: Glucose, Whole Blood 175 mg/dL (60-115)
[2023-09-08 11:13] VITALS: BP 131/87; PULSE 93; RESP 16; TEMP 36.7; O2SAT 99
--- NOTE | 2023-09-08 11:17 | PM.DS ---
DS: Providers Provider Date of Service: 09/08/23 Date of admission: 09/07/23 19:19 Primary care physician: Unknown Physician Consults: 09/07/23 20:19 Addiction Medicine Routine Consulting Provider: Addiction Covering Reason for consultation: polysubstance use disorder DS: Diagnosis Discharge Diagnosis (1) Acute metabolic encephalopathy: Status: Acute DS: Summary Hospital Course Hospital Course: History and physical as per admitting provider. Patient is a 33-year-old male with a PMH significant for poorly controlled type 1 diabetes mellitus, HLD, polysubstance use disorder, MDD with SI, and medication noncompliance who was admitted to [facility] psych unit earlier this evening for increasing depression with SI with attempted overdose on heroin. Patient was found unresponsive in his mother's back yd after intentionally overdosing on heroin in attempt to end his life. Was ambulatory by the time that EMS arrived on the scene and did not require Narcan. Patient also apparently has tried overdosing multiple times in the past on insulin. Patient was admitted the psych floor 09/04 from our ED. Rapid response was called as patient became lethargic and altered while on the unit. At time of interview and exam patient arousable to verbal stimuli, but lethargic and with his eyes closed. Complains of abdominal discomfort that he attributes to gas and some nausea and vomiting last night. Denies lightheadedness or dizziness. Denies any significant pain. No chest pain/pressure, palpitations. No shortness a breath or difficulty breathing. Denies fever, chills. No recent illnesses. Denies diarrhea. Patient's POC was noted to be 400. Patient has a long history of medication noncompliance and poorly controlled type 1 diabetes. Sugars have been variable today as low as 58 in the morning but mostly hypoglycemic as high as 495. CBC, CMP, VBG, and beta hydroxybutyrate were ordered and drawn. Labs were significant for random glucose of 370, otherwise grossly unremarkable. No leukocytosis. Stable H&H. No electrolyte abnormalities. Renal and hepatic function WNL. Beta hydroxybutyrate WNL at 0.18. 33-year-old male transferred from [facility] 4 lethargy and altered mental status. This was likely related to his uncontrolled diabetes mellitus type 1, he was noted to be hyperglycemic with blood sugar as high as 500. His lethargy resolve pretty quickly after being transferred from the psych unit and onto the medical unit. CBC, BMP, beta hydroxybutyrate all unremarkable. Chest x-ray, UA and KUB negative. He had a little bit of abdominal discomfort but this was relieved simethicone. He was seen and evaluated by the care team who thought that he was clear and could be discharged home with his mother. Patient is in agreement with this, care team members spoke with his mother and she is also in agreement. Hyperlipidemia. Continue statin Nicotine dependence. Nicotine replacement therapy Depression with suicide ideation. Recent heroin overdose attempt, had one-to-one sitter. Seen evaluated by the care team and cleared to go home. Time Attestation Discharge Coordination Time (in mins): 35 Quality: Safe Use of Opioids Does Pt have an Active Cancer Diagnosis on the Problem List?: No Quality: Stroke Does the patient have a stroke diagnosis?: No Physical Exam Vital Signs: Vital Signs: Last Vital Signs Temp 98.1 F 09/08/23 11:13 Pulse 93 09/08/23 11:13 Resp 16 09/08/23 11:13 BP 131/87 09/08/23 11:13 Pulse Ox 99 09/08/23 11:13 O2 Del Method Room Air 09/08/23 11:13 BMI result Body Mass Index 18.7 Appearing in no acute distress head is normocephalic atraumatic eyes pupils are PERRLA sclera is anicteric mouth throat mucous membranes are intact and moist neck is supple no lymphadenopathy, no JVD noted lung sounds are clear to auscultation heart regular rate rhythm, clear S1, S2 positive bowel sounds, abdomen is soft, nontender neuro patient is alert x3, no focal deficits DS: Data Data Completed and Pending Labs on day of discharge: Laboratory Results - last 24 hr 09/07/23 09/08/23 09/08/23 21:20 01:19 07:11 POC Glucose 129 H 130 H 88 09/08/23 10:50 POC Glucose 175 H Discharge Plan Discharge Anticipated Discharge Date/Time: 09/08/23 17:56 Patient Disposition: Home, Self-Care Discharge Diagnosis: Acute metabolic encephalopathy Uncontrolled type 1 diabetes mellitus Abdominal discomfort Depression Discharge Medications: Continued atorvastatin 20 mg tablet 20 mg PO BEDTIME insulin glargine [Lantus Solostar U-100 Insulin] 100 unit/mL (3 mL) insulin pen 24 unit subcut BEDTIME acetaminophen 325 mg Tablet 650 mg PO Q6H PRN (Reason: Headache/Pain Mild Scale (1-3)) Qty: 0 0RF nicotine (polacrilex) 2 mg Gum 4 mg buccal Q2H PRN (Reason: Nicotine Cravings) Qty: 0 0RF trazodone 100 mg Tablet 100 mg PO BEDTIME PRN (Reason: insomnia) Qty: 0 0RF gabapentin 300 mg Capsule 300 mg PO TID Qty: 0 0RF hydroxyzine HCl 25 mg Tablet 25 mg PO Q6H PRN (Reason: Anxiety) Qty: 0 0RF nicotine 7 mg/24 hr Patch 24 Hour 7 mg transdermal DAILY Qty: 0 0RF dextrose [Glutose-15] 40 % Gel 15 g PO Q15M PRN (Reason: Per Hypoglycemia Standing Ord.) Qty: 0 0RF Protocol: Glucose Gel Hypoglycemia Standing Order Protocol Text: For patients able to take PO (patient cooperative and able to swallow). Give Glucose Gel 15 gm PO for Blood Glucose (BG) < 70. Repeat BG every 15 min until BG > 70 x 3, if BG still < 70 and/or patient symptomatic repeat glucose gel or rapid acting carbohydrate. Notify MD if BG does not improve with treatment. magnesium hydroxide [Milk of Magnesia] 400 mg/5 mL Suspension 30 ml PO DAILY PRN (Reason: Constipation) Qty: 0 0RF insulin lispro [Admelog U-100 Insulin lispro] 100 unit/mL Solution 8 unit subcut TIDWM Qty: 0 0RF insulin lispro [Admelog U-100 Insulin lispro] 100 unit/mL Solution See Protocol subcut QID PRN (Reason: continued hyperglycemia) Qty: 0 0RF Protocol: Insulin Correction Scale Less than or equal to 110 ---- Give (units): 0 111 to 150 Give (units): 0 151 to 200 Give (units): 2 201 to 250 Give (units): 4 251 to 300 Give (units): 6 301 to 350 Give (units): 8 Greater than 350 Give (units): 10 Call MD if Blood Glucose > : 350 simethicone [Gas Relief (simethicone)] 80 mg Tablet,Chewable 80 mg PO QIDWMHS PRN (Reason: gas) Qty: 0 0RF MAG-AL 200-200 mg/5 mL Suspension 30 ml PO Q6H PRN (Reason: Heartburn/Nausea) Qty: 0 0RF lactulose 20 gram/30 mL Solution 30 g PO TID Qty: 0 0RF Discharge Orders: Discharge Order (Routine); Ordered 09/08/23 Ordered By: Kimberly Fermin Diet: Advance to usual diet Activity on Discharge: As tolerated Stand Alone Forms: Patient Portal Discharge page Print Language: Welsh Care Plan Goals: Check blood sugars before meals and at bedtime, take insulin as prescribed Health Concerns: Acute metabolic encephalopathy Uncontrolled type 1 diabetes mellitus Abdominal discomfort Depression Plan of Treatment: Follow-up with primary care provider as needed Take all medications as prescribed Assessment: See discharge summary Patient Instructions: Diabetes and Nutrition (DC), Diabetes Type 1: Management (DC)
[2023-09-08] MEDS: Insulin Lispro 100 UNIT/ML 3 ML VIAL SUBCUT ×2 (11:21→16:46)
--- NOTE | 2023-09-08 12:24 | P.PNIM_ITS ---
Subjective Subjective Date of Service: 09/08/23 Review of Systems Follow up acute metabolic encephalopathy Feeling better, vital signs stable, no signs of infection Physical Exam Vital Signs: Vital Signs: Last Vital Signs Temp 98.1 F 09/08/23 11:13 Pulse 93 09/08/23 11:13 Resp 16 09/08/23 11:13 BP 131/87 09/08/23 11:13 Pulse Ox 99 09/08/23 11:13 O2 Del Method Room Air 09/08/23 11:13 BMI result Body Mass Index 18.7 Appearing in no acute distress lung sounds are clear to auscultation heart regular rate rhythm, clear S1, S2 positive bowel sounds, abdomen is soft, nontender neuro patient is alert x3, no focal deficits Objective Data Active Medications Acetaminophen (Acetaminophen 325 Mg Tablet) 650 mg PO Q6H PRN PRN Reason: Pain, Mild (Pain Scale 1-3) Al Hydroxide/Mg Hydroxide (Magnesium Hydrox/Alum Hydrox 30 Ml Oral.Susp) 30 ml PO Q6H PRN PRN Reason: Heartburn/Nausea Atorvastatin Calcium (Atorvastatin Calcium 20 Mg Tablet) 20 mg PO BEDTIME [facility] Last Admin: 09/07/23 21:37 Dose: 20 mg Documented By: MATA Benzonatate (Benzonatate 100 Mg Capsule) 100 mg PO TID PRN PRN Reason: Cough Docusate Sodium (Docusate Sodium 100 Mg Capsule) 100 mg PO DAILY PRN PRN Reason: Constipation Enoxaparin Sodium (Enoxaparin Sodium 40 Mg/0.4 Ml Syringe) 40 mg SUBCUT Q24H [facility] Last Admin: 09/07/23 21:35 Dose: 40 mg Documented By: MATA Gabapentin (Gabapentin 300 Mg Capsule) 300 mg PO TID [facility] Last Admin: 09/08/23 08:05 Dose: 300 mg Documented By: FRANKFEKENNETH Glucose (Glucose Gel 15 Gm Gel..Gram.) 15 gm PO Q15M PRN; Protocol PRN Reason: per Hypoglycemia Standing Ord. Hydroxyzine HCl (Hydroxyzine Hcl 25 Mg Tablet) 25 mg PO Q6H PRN PRN Reason: Anxiety Dextrose (D10) 250 mls @ 750 mls/hr IV Q15M PRN; Protocol PRN Reason: per Hypoglycemia Standing Ord. Insulin Glargine (Insulin Glargine,Hum.Rec.Anlog 100 Unit/Ml 10 Ml Vial) 20 unit SUBCUT BEDTIME [facility] Last Admin: 09/07/23 21:37 Dose: 20 unit Documented By: MATA Insulin Human Lispro (Insulin Lispro 100 Unit/Ml 3 Ml Vial) 0 unit SUBCUT QIDACHS [facility]; Protocol Last Admin: 09/08/23 11:21 Dose: 2 unit Documented By: ALLEN Insulin Human Lispro (Insulin Lispro 100 Unit/Ml 3 Ml Vial) 8 unit SUBCUT TIDWM [facility] Last Admin: 09/08/23 11:19 Dose: Not Given Documented By: ALLEN Non-Admin Reason: Physician Held Med Lactulose (Lactulose 20 Gm/30 Ml Solution) 30 gm PO TID [facility] Last Admin: 09/07/23 21:39 Dose: Not Given Magnesium Hydroxide (Milk Of Magnesia 30 Ml Oral.Susp) 30 ml PO DAILY PRN PRN Reason: Constipation Melatonin (Melatonin 3 Mg Tablet) 6 mg PO BEDTIME PRN PRN Reason: Insomnia Last Admin: 09/07/23 21:37 Dose: 6 mg Documented By: MATA Nicotine (Nicotine 7 Mg Patch.Td24) 7 mg TRANSDERMA DAILY [facility] Last Admin: 09/08/23 08:05 Dose: 7 mg Documented By: ALLEN Nicotine Polacrilex (Nicotine Polacrilex 2 Mg Gum) 4 mg BUCCAL Q2H PRN PRN Reason: Nicotine Cravings Ondansetron HCl (Ondansetron Hcl 4 Mg/2 Ml Vial) 4 mg IVPUSH Q8H PRN PRN Reason: Nausea and Vomiting Simethicone (Simethicone 80 Mg Tab.Chew) 80 mg PO QIDWMHS PRN PRN Reason: gas Sodium Chloride (0.9 % Sodium Chloride Flush 3 Ml Syringe) 3 ml IVFLUSH QSHIFT [facility] Last Admin: 09/08/23 08:09 Dose: 3 ml Documented By: ALLEN Trazodone HCl (Trazodone Hcl 100 Mg Tablet) 100 mg PO BEDTIME PRN PRN Reason: insomnia Last Admin: 09/08/23 02:17 Dose: 100 mg Documented By: MATA Labs Labs: Laboratory Results - last 24 hr 09/07/23 09/08/23 09/08/23 21:20 01:19 07:11 POC Glucose 129 H 130 H 88 09/08/23 10:50 POC Glucose 175 H Assessment and Plan (1) Acute metabolic encephalopathy: Status: Acute Plan Patient is a 33-year-old male with a PMH significant for poorly controlled type 1 diabetes mellitus, HLD, polysubstance use disorder, MDD with SI, and medication noncompliance who was admitted to [facility] psych unit earlier this evening for increasing depression with SI with attempted overdose on heroin. Patient became lethargic and altered while on the unit, and will be brought to the hospital floor under observation and further workup of acute metabolic encephalopathy. Acute metabolic encephalopathy. Resolved Patient with lethargy, altered mental status while on the unit likely Hyperglycemia CBC, BMP, beta hydroxybutyrate all unremarkable CXR, UA, kub negative Type 1 diabetes, poorly controlled at home Patient with elevated blood glucose often in the 400-500s Insulin lispro 8 units with meals, SSI, Lantus Diabetic diet better controlled Abdominal discomfort. Resolved Continue simethicone Mood disorder with SI with recent heroin overdose attempt Continue mood stabilizers One-to-one sitter HLD Continue statin Nicotine dependence Nicotine replacement therapy Full Code Attending:?Dr. Dominguez DVT Prophylaxis: Lovenox Patient will be brought to the hospital under observation for treatment and further evaluation of acute encephalopathy in the setting of hyperglycemia versus drug use versus medications. Quality Stroke Does the patient have a stroke diagnosis?: No VTE Prior VTE?: No VTE Risk Level:: Medical - moderate - high VTE Device Contraindication: Treatment Not Indicated VTE Drug Contraindication: N/A - Med Ordered
--- NOTE | 2023-09-08 13:15 | HO.ADDICTCON ---
History of Present Illness Date of Service: 09/08/2023 Chief Complaint: Encephalopathy Reason for Consult: substance use Sources of Information: patient interviewed and chart reviewed HPI Narrative: Patient is a 33 year old male who presented to [facility] ED following intentional opioid overdose. Transferred from unit to medical floor following change in mental status and hyperglycemia. COnsult requested due to substance use prior to admission Patient seen with size cutter in room 471. Patient is awake, alert, and engaged in interview. Affect flat and sad. He reports he has never used opiates in his life before using the day he attempted to overdose. He does report history of crack cocaine use since the age of 23. States he has not used cocaine in about 3 months. Identified increasing financial stress as precipitant to overdose attempt. He says several times during interview that he regrets doing what he did. He reports no withdrawal sx and appears comfortable during interview. He presents as sad, remorseful--stating that he told his mother he would change. Limited supports in the community. No source of income at this time Past Psychiatric History: Adolescent saw prescriber briefly in [place], does not recall name. Dx reported to be bipolar d/o. Reports medications as a teen, does not recall names. h/o treatment through [facility]. No hx of IP, PHP. h/o ED presentation, sent by outpatient provider, due to passive SI by noncompliance with diabetes treatment. hosp: none prior SA: insulin over-injection - 5 times. never before with heroin. SIB: none HIB: none outpt: started therapy about a month ago ([facility]) - with chandrika. no meds. Review of Systems Constitutional: Reports as per HPI and Reports no additional constitutional complaints Diagnostics Vital Signs (24Hr): Vital Signs - 24 hr 09/07/23 20:00 09/08/23 04:00 09/08/23 07:44 Temperature 99.8 F 98.5 F 98.3 F Pulse Rate 106 H 88 87 Respiratory Rate 20 20 16 Blood Pressure 129/77 137/85 129/84 Pulse Oximetry 100 99 99 Oxygen Delivery Method Room Air Room Air Room Air 09/08/23 11:13 Temperature 98.1 F Pulse Rate 93 Respiratory Rate 16 Blood Pressure 131/87 Pulse Oximetry 99 Oxygen Delivery Method Room Air BMI result Body Mass Index 18.7 Labs Labs: Laboratory Results - last 48 hr 09/07/23 09/08/23 09/08/23 21:20 01:19 07:11 POC Glucose 129 H 130 H 88 09/08/23 10:50 POC Glucose 175 H Imaging Radiology Impressions: ITS Impressions Chest X-Ray 09/08/23 08:24 IMPRESSION: * Lungs have a normal appearance. No acute cardiopulmonary abnormality. * Normal abdominal radiograph. No evidence of bowel obstruction. KUB X-Ray 09/08/23 08:24 IMPRESSION: * Lungs have a normal appearance. No acute cardiopulmonary abnormality. * Normal abdominal radiograph. No evidence of bowel obstruction. Mental Status Exam Mental Status Exam Level of Consciousness: Awake, Appropriate and Alert Patient Behavior: Cooperative Mood Description: Depressed and Sad Affect Description: Depressed and Flat Medications Medications Current Medications Acetaminophen (Acetaminophen 325 Mg Tablet) 650 mg PO Q6H PRN PRN Reason: Pain, Mild (Pain Scale 1-3) Al Hydroxide/Mg Hydroxide (Magnesium Hydrox/Alum Hydrox 30 Ml Oral.Susp) 30 ml PO Q6H PRN PRN Reason: Heartburn/Nausea Atorvastatin Calcium (Atorvastatin Calcium 20 Mg Tablet) 20 mg PO BEDTIME [facility] Last Admin: 09/07/23 21:37 Dose: 20 mg Benzonatate (Benzonatate 100 Mg Capsule) 100 mg PO TID PRN PRN Reason: Cough Docusate Sodium (Docusate Sodium 100 Mg Capsule) 100 mg PO DAILY PRN PRN Reason: Constipation Enoxaparin Sodium (Enoxaparin Sodium 40 Mg/0.4 Ml Syringe) 40 mg SUBCUT Q24H [facility] Last Admin: 09/07/23 21:35 Dose: 40 mg Gabapentin (Gabapentin 300 Mg Capsule) 300 mg PO TID [facility] Last Admin: 09/08/23 08:05 Dose: 300 mg Glucose (Glucose Gel 15 Gm Gel..Gram.) 15 gm PO Q15M PRN; Protocol PRN Reason: per Hypoglycemia Standing Ord. Hydroxyzine HCl (Hydroxyzine Hcl 25 Mg Tablet) 25 mg PO Q6H PRN PRN Reason: Anxiety Dextrose (D10) 250 mls @ 750 mls/hr IV Q15M PRN; Protocol PRN Reason: per Hypoglycemia Standing Ord. Insulin Glargine (Insulin Glargine,Hum.Rec.Anlog 100 Unit/Ml 10 Ml Vial) 20 unit SUBCUT BEDTIME [facility] Last Admin: 06/16/24 21:37 Dose: 20 unit Insulin Human Lispro (Insulin Lispro 100 Unit/Ml 3 Ml Vial) 0 unit SUBCUT QIDACHS [facility]; Protocol Last Admin: 09/08/23 11:21 Dose: 2 unit Insulin Human Lispro (Insulin Lispro 100 Unit/Ml 3 Ml Vial) 8 unit SUBCUT TIDWM [facility] Last Admin: 09/08/23 11:19 Dose: Not Given Lactulose (Lactulose 20 Gm/30 Ml Solution) 30 gm PO TID [facility] Last Admin: 09/07/23 21:39 Dose: Not Given Magnesium Hydroxide (Milk Of Magnesia 30 Ml Oral.Susp) 30 ml PO DAILY PRN PRN Reason: Constipation Melatonin (Melatonin 3 Mg Tablet) 6 mg PO BEDTIME PRN PRN Reason: Insomnia Last Admin: 09/07/23 21:37 Dose: 6 mg Nicotine (Nicotine 7 Mg Patch.Td24) 7 mg TRANSDERMA DAILY [facility] Last Admin: 09/08/23 08:05 Dose: 7 mg Nicotine Polacrilex (Nicotine Polacrilex 2 Mg Gum) 4 mg BUCCAL Q2H PRN PRN Reason: Nicotine Cravings Ondansetron HCl (Ondansetron Hcl 4 Mg/2 Ml Vial) 4 mg IVPUSH Q8H PRN PRN Reason: Nausea and Vomiting Simethicone (Simethicone 80 Mg Tab.Chew) 80 mg PO QIDWMHS PRN PRN Reason: gas Sodium Chloride (0.9 % Sodium Chloride Flush 3 Ml Syringe) 3 ml IVFLUSH QSHIFT [facility] Last Admin: 09/08/23 08:09 Dose: 3 ml Trazodone HCl (Trazodone Hcl 100 Mg Tablet) 100 mg PO BEDTIME PRN PRN Reason: insomnia Last Admin: 09/08/23 02:17 Dose: 100 mg Allergies Allergies Allergy/AdvReac Type Severity Reaction Status Date / Time No Known Allergies Allergy Verified 09/04/23 19:47 [No Known Allergies*] Assessment & Plan Assessment & Plan (1) MDD (major depressive disorder), severe: Status: Acute Code(s): F32.2 - Major depressive disorder, single episode, severe without psychotic features Assessment and Plan: opioid use was planned as a suicide attempt--no prior use limited supports aside from his parents--when ready, may benefit from resources in the community. Or check in with disaster recovery coordinator once psyhciatrically stabilized no additional follow up indicated at this time Total time managing care of this patient today _35___ minutes. PMFSH Past Medical History Medical History Nicotine dependence MDD (major depressive disorder), severe Cocaine use disorder Noncompliance Dental decay Diabetes mellitus type 1, uncontrolled Hyperlipidemia LDL goal <100 Family History Family History Maternal Grandmother Diabetes, type I Surgical History Surgical History No history of previous surgery Social History Social History Household Members: Other Housing: Apartment Housing Other:: rents a room Do you presently have visiting nurse or other home services: No Unable to assess alcohol history related to: Unknown Alcohol intake: never Patient Tobacco Use Status: Former Tobacco user Tobacco use type: Cigarette Cigarettes Per Day: 5 Smoked in Last 30 Days: No e-Cigarette/Vaping Use: Never Used Second Hand Smoke Exposure: No Use of substances other than those prescribed or required for medical reasons: Yes Substance Use Type: Heroin Substance Use Frequency: Occasionally Last Used Substance: Days (ago) Last Used Substance Other:: heroin Currently Displaying Signs/Symptoms of Drug Intoxication Withdrawal: No Have you been hit, kicked, punched, or otherwise hurt by someone within the past year? If so, by whom?: No Do you feel safe in your current relationship?: No Current Relationship Is there a partner from a previous relationship who is making you feel unsafe now?: No Are you made to feel afraid or neglected: No Advance Directives: No Advance Directives Information Provided: No Recently lost weight without trying: Unsure How much weight loss: Unsure Eating poorly because of decreased appetite: No Nutrition screen score: 4 Nutrition Risks: No Nutritional Risk service: No Current occupational status: employed Cognitive needs: No Hearing needs: No Vision needs: No
[2023-09-08 13:52] VITALS: BMI 18.7
--- NOTE | 2023-09-08 13:56 | MHC.CLN ---
RE; CONSULT PT IS MODERATELY MALNOURISHED PT WITH MILDLY DEPLETED SUBCUTANEOUS FAT AND MUSCLE MASS WITH BMI 18 AND 10% SIGNIFICANT WT LOSS X 6 MONTHS WITH POLY SUBSTANCE ABUSE AND POORLY CONTROLLED TYPE 1 DM DIET RX: 2000DM -APPROPRIATE RECOMMEND ADDING ENSURE MAX BID TO INCREASE KCALS SUPP TO PROVIDE 300KCALS, 60G PROTEIN MONITOR PO INTAKE AND ENCOURAGE SUPPLEMENTS SEE ALSO FULL CLINICAL NUTRITION ASSESSMENT
--- NOTE | 2023-09-08 14:13 | MHC.CM.PN ---
RYAN 09/07. Pt self-care, lives at home with his mother, where he plans on returning. Pt will need assistance with transport home at discharge. DCP: return home self-care vs inpatient psych unit, care team eval pending. Pt declined making a HCP at this, states he will think about it. PCP: Dr. Ryland Miller
[2023-09-08 16:00] VITALS: BP 155/97; PULSE 85; RESP 18; TEMP 36.7; O2SAT 100
[2023-09-08 16:39] LABS: Glucose, Whole Blood 230 mg/dL (60-115)
--- NOTE | 2023-09-08 18:11 | MHC.CARE ---
CARE team spoke with pt?s mother. She reports this is the third time something like this happens. Mother detailed the events leading to pt presenting to hospital. She states pt was helping her garden then went inside and locked himself in his room afterward. At some point she saw pt walk by the window, he stated he was going to a friend?s house. Pt returned at an unknown time. Mother attempted to get pt to eat dinner but he refused. The next time mother saw pt was when her arrived home from work at 6pm. They went into pt?s room and found him unresponsive. Mother states she observed a white substance in pt?s nostrils. She suspects pt is using substances and has in the past, but she is unaware what kind of substances he uses. Mother reports the first 2 times did not require medical intervention. Mother expressed no immediate concerns for pt and does not feel overdose was intentional. Mother did state some concern about pt not tending to medical needs when using substances. She reports she spoke with pt and they agreed to have pt return to stay in her home. She is disabled and is home throughout the day. Mother reports pt will not be left unattended and she will continue to support him. Mother is advocating for pt to be discharged home.
== END 2023-09-08 19:00 | disposition home or self-care (01) ==
PROVIDERS: Student in an Organized Health Care Education/Training Program; Admitting Provider Student in an Organized Health Care Education/Training Program; PCP Internal Medicine; Visit Provider Nurse Practitioner Acute Care
DX: G93.41 Metabolic encephalopathy (principal); E10.65 Type 1 diabetes mellitus with hyperglycemia; Z79.4 Long term (current) use of insulin; F32.2 Major depressive disorder, single episode, severe without psychotic features; F39 Unspecified mood [affective] disorder; E78.5 Hyperlipidemia, unspecified; F32.9 Major depressive disorder, single episode, unspecified; R10.9 Unspecified abdominal pain; F17.210 Nicotine dependence, cigarettes, uncomplicated; F19.90 Other psychoactive substance use, unspecified, uncomplicated
CPT/HCPCS: 71045; 74018; 82947; 96360; 96372; 99222; J1650; S9485

== ENCOUNTER → 2023-09-07 19:19 | Outpatient (BNV) | payer OTHER, SELFPAY | PROVIDERS: Admitting Provider Student in an Organized Health Care Education/Training Program; Visit Provider Nurse Practitioner Psychiatric/Mental Health | DX: F11.10 Opioid abuse, uncomplicated (principal); F14.10 Cocaine abuse, uncomplicated; F32.2 Major depressive disorder, single episode, severe without psychotic features | CPT/HCPCS: 99231 ==

== ENCOUNTER → 2023-09-07 19:19 | Outpatient (BNV) | payer OTHER, SELFPAY | PROVIDERS: Admitting Provider Student in an Organized Health Care Education/Training Program; Visit Provider Student in an Organized Health Care Education/Training Program | DX: G93.41 Metabolic encephalopathy (principal); E10.65 Type 1 diabetes mellitus with hyperglycemia; R10.9 Unspecified abdominal pain | CPT/HCPCS: 99222; 99239; 99499 ==

== ENCOUNTER 2023-10-06 12:42 | Outpatient (AMB) | payer OTHER, SELFPAY ==
[2023-10-06 12:49] VITALS: BP 130/92; PULSE 89; BMI 19.7
--- NOTE | 2023-10-06 12:49 | A.OFFVIS_ITS ---
Vital Signs 10/06/23 12:49 Height 5 ft 6 in Weight 122 lb 5.705 oz BMI 19.7 BP 130/92 H Blood Pressure Location Lt brachial Position Sitting Pulse 89 Pulse Source Pulse Oximeter Intake Visit Reasons: T1DM/LVM Intake Note: Patient presents today to follow up on D1MT. Last Diabetic Eye exam: Over one year ago. Last Podiatry Visit: Doesn't have one. 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 , Diabetes medications: Lantus 24 units once a day, Lispro 8 units with meals, 5 units with snacks, 5 units with soda (will add on to meal dose). He will also have a correction plus 2 units for blood sugars over 250, +3 units for blood sugars over 300, +4 units for blood sugars over 350, and + 5 units for blood sugars over 400. Noncompliant with insulin still but states better Eusebio download shows she is using the sensor 70% of the time. Average glucose is 249. Variability is 50.6 31% glucose is in target range 11 % hyperglycemia and 52% very hyperglycemic and 4% hypoglycemia 2% very hypoglycemic. Pattern shows increases early childhood lead teacher as well as after lunch with very high variability. Symptoms: Cramping in feet Hypoglycemia: once a week. Hyperglycemia:not recently Eye exam: yrs ago needs to make appt Exercise: little Laboratory Tests 06/01/20 06/01/20 06/01/20 12:30 12:30 12:30 Creatinine 0.98 Estimated GFR > 60 Fasting Glucose 371 H* Hemoglobin A1c % 12.2 Triglycerides 112 Cholesterol 227 LDL Cholesterol Direct 134 H HDL Cholesterol 71 Microalb/Creat Ratio 06/01/20 12:30 Creatinine Estimated GFR Fasting Glucose Hemoglobin A1c % Triglycerides Cholesterol LDL Cholesterol Direct HDL Cholesterol Microalb/Creat Ratio 13.1 He has started going to jew and is more compliant with his insulin. He did express interested insulin pump [facility] Medical History Nicotine dependence MDD (major depressive disorder), severe Cocaine use disorder Noncompliance Dental decay Diabetes mellitus type 1, uncontrolled Hyperlipidemia LDL goal <100 Surgical History No history of previous surgery Family History Maternal Grandmother Diabetes, type I Social History Household Members: Other Housing: Apartment Housing Other:: rents a room Do you presently have visiting nurse or other home services: No Unable to assess alcohol history related to: Unknown Alcohol intake: never Patient Tobacco Use Status: Former Tobacco user Tobacco use type: Cigarette Cigarettes Per Day: 5 e-Cigarette/Vaping Use: Never Used Second Hand Smoke Exposure: No Substance Use Type: Heroin service: No Current occupational status: employed Cognitive needs: No Hearing needs: No Vision needs: No Physical Exam Vital Signs: Last Vital Signs Pulse 89 10/06/23 12:49 BP 130/92 H 10/06/23 12:49 BMI result Body Mass Index 19.7 Absence of Cushingoid features. Absence of acromegalic features. Neck exam reveals nl size thyroid about 15 gms. No thyroid nodules palpable. No carotid bruits present. Lungs CTA. Heart S1 S2, Reg R/R. No M/R/ G. Skin exam reveals absence of vitiligo or acanthosis nigricans. Abdominal exam reveals Soft NT/ND with NA BS. No organomegaly present. Neck Other: . Extrem Other: Visual exam of foot performed. No ulcerations or open lesions. No onchomycosis, no callouses.Pulses 2 + distally Sensation intact to monofilament exam. Vibratory sensation sensed is intact with 128 Hz tuning fork Results AMB Hemoglobin A1c AMB Hemoglobin A1c 8.9 % Last Edit by CALOS Hawkins on 10/06/23 13:14 Results Reviewed Results Reviewed: Laboratory Last Values Glucose (Clinic) 327 mg/dL (60-115) H 10/06/23 12:58 Assessment & Plan Assessment & Plan (1) Diabetes mellitus type 1, uncontrolled: Comment: since age 10 Code(s): E10.65 - Type 1 diabetes mellitus with hyperglycemia Category: Medical Plan: This is a 33-year-old male with a history of longstanding type 1 diabetes currently being treated with basal-bolus insulin with poor glycemic control and no known microvascular or macrovascular complications. Told patient to be more compliant with the prandial insulin but if he is having hyperglycemia from omission of insulin, he should be more conservative in in terms of taking correction prandial insulin. Patient was going to make an appointment with the outreach educator and brine purifier and expressed interest in a pump. perhaps an iLet I did have a extensive discussion with the patient regarding the association of poor glycemic control and complications. He has very wide variability which may be a factor of noncompliance with insulin times. I will have him follow-up with our nurse practitioner Sunita Jason NP in 1 month. We will also check lipid profile and microalbumin to creatinine ratio. Lastly, refilled patient's glucagon prescription Baqsimi Orders: Orders Microalbumin, Random (w Creat) Today E10.65 - Type 1 diabetes mellitus with hyperglycemia AMB Hemoglobin A1c Today E10.65 - Type 1 diabetes mellitus with hyperglycemia, Z13.9 - Encounter for screening, unspecified Lipid Panel Today E10.65 - Type 1 diabetes mellitus with hyperglycemia Medications: New glucagon 3 mg/actuation (Baqsimi) 3 mg intranasal ONCE 2 ea 4RF Coding Level of Care Code Est Pt Level 4 (82052) Complex EM visit Add On G2211 Diagnoses Diabetes mellitus type 1, uncontrolled E10.65
[2023-10-06 13:02] LABS: Glucose, Whole Blood 327 mg/dL (60-115)
== END 2023-10-06 13:29 | disposition home or self-care (01) ==
PROVIDERS: PCP Internal Medicine; Visit Provider Internal Medicine Endocrinology, Diabetes & Metabolism
DX: Z13.9 Encounter for screening, unspecified (principal); E10.65 Type 1 diabetes mellitus with hyperglycemia
CPT/HCPCS: 99214; G2211

== ENCOUNTER → 2023-10-06 12:42 | Outpatient (BNVA) | payer OTHER, SELFPAY | PROVIDERS: PCP Internal Medicine; Visit Provider Internal Medicine Endocrinology, Diabetes & Metabolism | DX: E10.65 Type 1 diabetes mellitus with hyperglycemia (principal) | CPT/HCPCS: 82947; 83036; 99212 ==

== ENCOUNTER 2023-10-14 10:00 | Outpatient (REF) | payer OTHER, SELFPAY ==
[2023-10-14 12:08] LABS: Cholesterol 209 mg/dL (<200); HDL Cholesterol 65 mg/dL (>40); LDL Cholesterol Calculated 128 mg/dL (<100); Triglycerides 84 mg/dL (<150)
[2023-10-14 12:17] LABS: Creatinine Urine 30.96 mg/dL; Microalbumin Urine < 5.0 mg/L
== END 2023-10-14 10:01 | disposition home or self-care (01) ==
LOC: HO.LAB 10:00
PROVIDERS: Visit Provider Internal Medicine Endocrinology, Diabetes & Metabolism
DX: E10.65 Type 1 diabetes mellitus with hyperglycemia (principal)
CPT/HCPCS: 36415; 80061; 82043; 82570

== ENCOUNTER 2023-11-06 08:57 | Outpatient (AMB) | payer OTHER, SELFPAY ==
--- NOTE | 2023-11-06 08:58 | A.OFFVIS_ITS ---
Vital Signs 11/06/23 09:02 Height 5 ft 6 in Weight 114 lb 10.246 oz BMI 18.5 BP 132/78 Blood Pressure Location Rt brachial Position Sitting Pulse 94 Pulse Source Pulse Oximeter Intake Visit Reasons: T1DM/LVM Intake Note: Patient presents today to re-establish treatment on Type 1 Diabetes Mellitus: Last Diabetic Eye exam: DUE Last Podiatry Exam: Does not see a Security Team Lead Most recent HbA1c: 8.9%, 10/06/2023 Random Glucose- 308 mg/dL, Today Licensed Dispensing Optician Required: No Accompanied by: Self / Same As Patient Allergies No Known Allergies [No Known Allergies*] Allergy (Verified 11/06/23 08:59) HPI Comments Details: Patient is 33 yo male with DM type 1 diagnosed at age 10 who presents for management of diabetes. He was last seen by Amauri 10/14 and by Fartun Roth CDE 01 12. Last A1c was 8.9% on 10/06/23, previous A1c in May was 12.1 %. Diabetes medications: Lantus 24 units once a day, Lispro 15 units for lunch, supper and later evening snack He does not always take this if he is out of the house. He has not been covering for snacks and taken the larger dose of premeal insulin. Freestyle rita sensor [ 207] average glucose running higher from lunch to bedtime Symptoms: Cramping in feet, numbness which he feels is better when his sugars are in normal range, he ran out of gabapentin and would like to restart Hypoglycemia: none recent Eye exam: yrs ago needs to make appt Exercise: little He smokes 3 cigarettes per day and does vape does not carry sugar source No recent known DKA but has had in the past He was on an insulin pump in his teen years. He was unable to tolerate atorvastin side effect: diarrhea [facility] Medical History Nicotine dependence MDD (major depressive disorder), severe Cocaine use disorder Noncompliance Dental decay Diabetes mellitus type 1, uncontrolled Hyperlipidemia LDL goal <100 Surgical History No history of previous surgery Family History Maternal Grandmother Diabetes, type I Social History Household Members: Other Housing: Apartment Housing Other:: rents a room Do you presently have visiting nurse or other home services: No Unable to assess alcohol history related to: Unknown Alcohol intake: never Patient Tobacco Use Status: Former Tobacco user Tobacco use type: Cigarette Cigarettes Per Day: 5 e-Cigarette/Vaping Use: Never Used Second Hand Smoke Exposure: No Substance Use Type: Heroin service: No Current occupational status: employed Cognitive needs: No Hearing needs: No Vision needs: No Physical Exam Vital Signs: BMI result Body Mass Index 18.5 Const Other: Absence of Cushingoid features. Absence of acromegalic features. Neck exam reveals nl size thyroid about 15 gms. No thyroid nodules palpable. No carotid bruits present. Lungs CTA. Heart S1 S2, Reg R/R. No M/R G. Skin exam reveals absence of vitiligo or acanthosis nigricans. Extrem Other: Visual exam of foot performed. No ulcerations or open lesions. No onchomycosis, no callouses. Sensation diminished to monofilament exam. Absent left great toe Vibratory sensation is diminished with 128 Hz tuning fork. Results Reviewed Results Reviewed: Laboratory Tests 06/03/23 09/07/23 10/06/23 13:20 18:56 13:13 Plt Count 281 Hgb A1c (Clinic) 12.1 H 8.9 H ALT 25 Laboratory Tests 02/18/23 09/04/23 09/07/23 11:28 20:27 18:56 Hgb A1c (Clinic) > 14.0 H Hemoglobin A1c % 8.1 H Calcium 10.2 D AST 14 15 ALT 17 Triglycerides Cholesterol LDL Cholesterol, Calc HDL Cholesterol Urine Creatinine Urine Microalbumin 10/14/23 10/14/23 10:20 10:23 Hgb A1c (Clinic) Hemoglobin A1c % Calcium AST ALT Triglycerides 84 Cholesterol 209 H LDL Cholesterol, Calc 128 H HDL Cholesterol 65 Urine Creatinine 30.96 Urine Microalbumin < 5.0 Assessment & Plan Assessment & Plan (1) Diabetes mellitus type 1, uncontrolled: Comment: since age 10 Code(s): E10.65 - Type 1 diabetes mellitus with hyperglycemia Category: Medical Plan: This is a 33-year-old male with a history of longstanding type 1 diabetes currently being treated with basal-bolus insulin with poor glycemic control and no known microvascular or macrovascular complications. He does have peripheral neuropathy treated with gabapentin. Due to his inability to achieve a target A1c of 7% and the fact that Lantus is not lasting 24 hours we will change this patient to Tresiba [address] Lantus He will take 12 units of short-acting insulin 3 times daily and has agreed to go on a C Qur. He has been on an insulin pump in the past but I am not sure that this is an option for him in light of h/o substance abuse and compliance. He has an upcoming appt next week with Fartun HAILE which he was advised to keep. I am not sure if AprylQUr will be aproved by that time but if needed, he can return at a later date for this and I will see him back a few weeks later to review his numbers. At his follow up visit can determine if he should be using a sliding scale. Intolerant to atorvastatin: diarrhea, will hold off on prescibing another statin and recheck lipid profile in 3 months. Plan Symptoms of DKA were reviewed: early: frequent urination, dry mouth, fatigue, feeling ill, severe symptoms: ketones in the urine, abdominal pain, nausea, vomiting and weakness. It is important to hydrate with sugar free liquids every 30 minutes and bring the sugars down to normal levels. The patient was counseled to always carry a source of sugar and on the rule of 15's: Take 3 glucose tablets and repeat again in 15 minutes if blood sugar is not in normal range. Continue to repeat every 15 minutes until blood sugar is normal. The patient was counseled to achieve a target A1C of 7% (154 avg). Fasting blood sugars should be 90-130 in the morning and less than 180 two hours after meals. Reviewed the relationship between poor diabetic control and the developement of complications The patient was counseled to wear closed toe shoes, never walk barefooted and to inspect the feet daily. For any signs of infection or open wound patient should notify PCP or go to urgent care. Medications: Changed From gabapentin 300 mg PO TID 0 caps 0RF E11.40 - Type 2 diabetes mellitus with diabetic neuropathy, unspecified To gabapentin 300 mg PO TID 30 days 90 caps 6RF E11.40 - Type 2 diabetes mellitus with diabetic neuropathy, unspecified Discontinued atorvastatin Discontinued Reason: Doctor's Order 20 mg PO BEDTIME 30 tabs 5RF E78.5 - Hyperlipidemia, unspecified Patient Instructions: Symptoms of DKA were reviewed: early: frequent urination, dry mouth, fatigue, feeling ill, severe symptoms: ketones in the urine, abdominal pain, nausea, vomiting and weakness. It is important to hydrate with sugar free liquids every 30 minutes and bring the sugars down to normal levels. The patient was counseled to achieve a target A1C of 7% (154 avg). Fasting blood sugars should be 90-130 in the morning and less than 180 two hours after meals. Reviewed the relationship between poor diabetic control and the development of complications. The patient was counseled to always carry a source of sugar and on the rule of 15's: Take 3 glucose tablets and repeat again in 15 minutes if blood sugar is not in normal range. Continue to repeat every 15 minutes until blood sugar is normal. Coding Level of Care Code Est Pt Level 5 (75449) Complex EM visit Add On G2211 Diagnoses Diabetes mellitus type 1, uncontrolled E10.65 Time Spent (min) 50 Comment Time spent reviewing labs/provider notes, sensor/pump reports, face to face, chart doc
[2023-11-06 09:02] VITALS: BP 132/78; PULSE 94; BMI 18.5
[2023-11-06 09:10] LABS: Glucose, Whole Blood 308 mg/dL (60-115)
== END 2023-11-06 09:43 | disposition home or self-care (01) ==
PROVIDERS: PCP Internal Medicine; Visit Provider Nurse Practitioner Adult Health
DX: E10.65 Type 1 diabetes mellitus with hyperglycemia (principal)
CPT/HCPCS: 99215; G2211

== ENCOUNTER → 2023-11-06 08:57 | Outpatient (BNVA) | payer OTHER, SELFPAY | PROVIDERS: PCP Internal Medicine; Visit Provider Nurse Practitioner Adult Health | DX: E10.65 Type 1 diabetes mellitus with hyperglycemia (principal); E10.40 Type 1 diabetes mellitus with diabetic neuropathy, unspecified; E78.5 Hyperlipidemia, unspecified | CPT/HCPCS: 82947; 99212 ==

== ENCOUNTER → 2023-11-25 09:50 | Outpatient (BNVA) | payer OTHER, SELFPAY | PROVIDERS: PCP Internal Medicine; Visit Provider Nurse Practitioner Adult Health ==

== ENCOUNTER 2024-01-12 21:01 | Emergency (ER) | payer OTHER, SELFPAY ==
[2024-01-12 21:09] VITALS: BP 120/70; BP 121/81; PULSE 100; PULSE 66; RESP 16; TEMP 36.8; O2SAT 98; O2SAT 99; BMI 19.4
[2024-01-12 21:20] LABS: Glucose, Whole Blood 80 mg/dL (60-115)
--- NOTE | 2024-01-12 21:36 | PC.NURSE ---
Lab called critical results, blood glucose 51. Rad[facility] ED provider notified. Patient is alert and oriented x4, speech is clear, able to manage oral secretions, non-diaphoretic. [place] juice with sun butter sandwich given to patient given per provider's order, with plan to recheck POC in 15 min. Patient had 240 mL of orange juice and finished entire sandwich. Call egan in patient's reach.
[2024-01-12 21:41] LABS: MANUAL DIFF FLAG NO
[2024-01-12 21:42] LABS: Basophils Percent Auto 0.4 % (0-2); Eosinophils Absolute Auto 0.1 X10*3/uL (0.0-0.4); Eosinophils Percent Auto 1.3 % (0-4); Hematocrit 47.3 % (42.0-52.0); Hemoglobin 15.6 g/dl (14.0-18.0); Imm Gran Abs Auto 0.02 X10*3/uL (0.00-0.03); Imm Gran Pct Auto 0.3 % (0.0-0.4); Lymphocytes Absolute Auto 1.4 X10*3/uL (1.2-4.9); Lymphocytes Percent Auto 20.7 % (20-40); Mean Corpuscular Hemoglobin 28.9 pg (27.0-33.0); Mean Corpuscular Volume 87.8 fL (80.0-98.0); Mean Platelet Volume 10.9 fL (9.4-12.4); Monocytes Absolute Auto 0.5 X10*3/uL (0.1-1.2); Monocytes Percent Auto 7.1 % (2-11); Neutrophils Absolute Auto 4.8 x10*3/uL (2.0-8.3); Neutrophils Percent Auto 70.2 % (45-73); Platelet Count 237 X10*3/uL (160-400); Red Blood Count 5.39 X10*6/uL (4.60-5.80); Red Cell Distribution Width 12.6 % (11.0-16.0); White Blood Count 6.9 X10*3/uL (4.8-10.8)
[2024-01-12 21:57] LABS: Alanine Aminotransferase 25 U/L (0-40); Albumin Level 4.7 g/dL (3.5-5.0); Alkaline Phosphatase 82 U/L (39-117); Anion Gap 12 (12-20); Aspartate Amino Transferase 22 U/L (5-37); Bilirubin Total 0.3 mg/dL (0.0-1.0); Blood Urea Nitrogen 11 mg/dL (9-16); Calcium 11.1 mg/dL (8.4-10.2); Carbon Dioxide 31 mmol/L (22-29); Chloride 104 mmol/L (96-108); Creatinine Clr Calc Pharmacy 107.7; Estimated Glomerular Filt Rate > 60; Glucose Random 51 mg/dL (60-115); Potassium 3.2 mmol/L (3.3-5.1); Sodium 144 mmol/L (135-145); Total Protein 8.1 g/dL (6.5-8.0)
[2024-01-12 22:39] VITALS: BP 120/86; PULSE 67; RESP 20; O2SAT 99
[2024-01-12] MEDS: Dextrose 10 % 250 ML 750 ML IV (22:44)
--- NOTE | 2024-01-12 22:50 | PC.NURSE ---
Repeat POC 46, Radha, ED provider notified. Patient medicated with D 10 in 250 mL per MD order.
--- NOTE | 2024-01-12 23:20 | ED_ITS ---
HPI - General Adult General Chief complaint: General Medical Stated complaint: found unresponsive w/ bgl 47. Now Bgl 175,a&o Time Seen by Provider: 01/12/24 22:46 Source: patient and EMS Mode of arrival: EMS Limitations: no limitations History of Present Illness HPI narrative: Is a 33-year-old male with history of type 1 diabetes who presents emergency department via EMS after being found unresponsive. Per report from EMS around 14:00 today he had a small snack while he was playing call of duty. Prior to arrival by EMS, mother found him to be minimally responsive and diaphoretic. Had initial blood glucose level of 47. He received D10 and 250 mL normal saline with improvement in blood sugar up to 169. He arrived to the emergency department alert and oriented answering questions appropriately with repeat 40 of care glucose of 80. He reports that he took 18 units of his insulin lispro at home around 17:30 without checking his blood glucose level. During nursing triage she denied any suicidal ideations. When asked patient states that she takes a sliding scale insulin does not have a fixed dosage with each meal. When asked why he decided to take 18 units without checking his blood glucose level of his response was ?life does not mean anything and sometimes I want to ?. When asked whether he took the insulin intentionally as a suicide attempt he states ?sometimes I want to but I do not feel like that right now?. He admits to feeling depressed, but he does typically feel better when he is playing his video games. He states ?was playing call of duty and then things went black?. He denies recreational drug or alcohol usage. Denies any therapist or prescribed medications for depression/anxiety. Related Data Previous Rx's ?Medication ?Instructions ?Recorded acetaminophen 325 mg tablet 650 mg (2 x 325 mg) PO Q6H PRN 09/07/23 Headache/Pain Mild Scale (1-3) #0 tabs aluminum-magnesium hydroxide 200 30 ml PO Q6H PRN Heartburn/Nausea 09/07/23 mg-200 mg/5 mL oral suspension #0 mL (MAG-AL) dextrose 40 % oral gel (Glutose-15) 15 g PO Q15M PRN Per Hypoglycemia 09/07/23 Standing Ord. #0 grams hydroxyzine HCl 25 mg tablet 25 mg PO Q6H PRN Anxiety #0 tabs 09/07/23 insulin lispro 100 unit/mL See Protocol subcut QID PRN 09/07/23 subcutaneous solution (Admelog continued hyperglycemia #0 mL U-100 Insulin lispro) lactulose 20 gram/30 mL oral 30 g (45 mL) PO TID #0 mL 09/07/23 solution magnesium hydroxide 400 mg/5 mL 30 ml PO DAILY PRN Constipation #0 09/07/23 oral suspension (Milk of Magnesia) mL nicotine (polacrilex) 2 mg gum 4 mg buccal Q2H PRN Nicotine 09/07/23 Cravings #0 ea trazodone 100 mg tablet 100 mg PO BEDTIME PRN insomnia #0 09/07/23 tabs nicotine 7 mg/24 hr daily 7 mg transdermal DAILY #14 ea 09/12/23 transdermal patch simethicone 80 mg chewable tablet 80 mg PO QIDWMHS PRN gas #60 tabs 09/12/23 (Gas Relief (simethicone)) glucagon 3 mg/actuation nasal 3 mg intranasal ONCE #2 ea 10/06/23 spray (Baqsimi) insulin lispro 100 unit/mL 15 unit (0.15 mL) subcut TID #15 mL 10/16/23 subcutaneous pen gabapentin 300 mg capsule 300 mg PO TID 30 days #90 caps 11/06/23 insulin degludec 200 unit/mL (3 28 unit (0.14 mL) subcut DAILY 30 11/14/23 mL) subcutaneous pen (Tresi days #4.2 mL FlexTouch U-200 insulin) pen needle, diabetic 32 gauge x #100 ea 12/15/23 (BD Blanca 2nd Gen Pen Needle) Allergies Allergy/AdvReac Type Severity Reaction Status Date / Time No Known Allergies Allergy Verified 01/12/24 21:12 [No Known Allergies*] Review of Systems 2 Review of Systems: Yes all other systems are reviewed and are negative PMFSH Past Medical History Attestation statement: The following information was validated with the patient. Source: old records reviewed Medical History Nicotine dependence MDD (major depressive disorder), severe Cocaine use disorder Noncompliance Dental decay Diabetes mellitus type 1, uncontrolled Hyperlipidemia LDL goal <100 Surgical History No history of previous surgery Family History Family History Maternal Grandmother Diabetes, type I Social History Social History Household Members: Other Housing: Apartment Housing Other:: rents a room Do you presently have visiting nurse or other home services: No Unable to assess alcohol history related to: Unknown Alcohol intake: never Patient Tobacco Use Status: Former Tobacco user Tobacco use type: Cigarette Cigarettes Per Day: 5 Smoked in Last 30 Days: Yes e-Cigarette/Vaping Use: Never Used Second Hand Smoke Exposure: No Use of substances other than those prescribed or required for medical reasons: Yes Substance Use Type: Marijuana Substance Use Frequency: Daily Advance Directives: No Advance Directives Information Provided: No Do you have a plan to hurt others: No Plan service: No Current occupational status: employed Cognitive needs: No Hearing needs: No Vision needs: No Physical Exam ED Vital Signs: Vital Signs - 24 hr 01/12/24 21:09 01/12/24 22:39 Temperature 98.3 F Pulse Rate 66 67 Respiratory Rate 16 20 Blood Pressure 121/81 120/86 Pulse Oximetry 98 99 Oxygen Delivery Method Room Air Room Air BMI result Body Mass Index 19.4 Appearance: Alert.?Oriented to person, place and time. No acute distress.?Normal affect. Eyes: Pupils equal, round and reactive to light.? ENT: Pharynx normal.?? Neck: Normal inspection.? Neck supple.?? CVS: Heart sounds normal. Normal heart rate and rhythm.? Pulses normal.?? Respiratory: No respiratory distress.? Lung sounds clear to auscultation bilaterally?? Abdomen: Soft and non-tender. Normoactive bowel sounds. Skin: Skin warm and dry.? Normal skin color.? Extremities: No lower extremity edema.? Neuro: Moves all extremities spontaneously. Sensation intact bilaterally. CN II- XII intact. No focal neuro deficits. Ambulates with normal steady gait. Medications Administered Generic Name Dose Route Start Last Admin Trade Name Freq PRN Reason Stop Dose Admin Dextrose 250 mls @ 750 mls/hr 01/12/24 22:36 01/12/24 22:44 D10 IV 750 mls/hr Q15M PRN Administration per Hypoglycemia Standing Ord. Medical Decision Making Medical Decision Making [facility] Narrative: Patient is a 33-year-old male past medical history of substance use disorder, type 1 diabetes, depression, hyperlipidemia, nicotine dependence who presents emergency department for evaluation after insulin overdose, at first appear to be unintentional and denied suicidal ideations to nursing staff time of my evaluation endorsing SI. On review of medical record he has inpatient psych admission most recently in August of 2023 similarly with depression after an intentional heroin overdose, admission at that time reports that he has had insulin over injection 5 times prior. After receiving dextrose IV random glucose serum was 51, alert and oriented x4, provided with orange juice and a sandwich, repeat blood glucose level in the 40s, additional dextrose IV was administered, with repeat glucose 210. He was placed on a section 12 refer to care team for further evaluation and disposition planning at this time. Differential Diagnosis Differential Diagnoses: The differential diagnosis associated with the presentation includes (See narrative above and below for further detail) Admission/Observation Consideration of admission/observation: Escalation of care including admission/observation considered Patient is being observed in the Emergency Department for depression . Observation time was started at 00:07 on 01/13/2024.?The patient is currently stable and non-toxic appearing. Observation is being initiated in the Emergency Department to allow time to help differentiate if the patient's depression and anxiety is due to Substance Induced Mood Disorder and Anxiety versus Major Depressive Disorder, Bipolar Elaina, Bipolar Depression, and Schizophrenia. The patient will receive frequent psychiatric assessments from the provider as well as from nursing staff. The patient will also be monitored for the need of PRN agitation medications such as Haldol, Ativan, and Benadryl. Consult Healthcare Provider Management of the patient was discussed with: Behavioral Health Provider Lab Data [facility] Lab Attestation statement: I reviewed the patient's lab results. CBC is without leukocytosis, no anemia or thrombocytopenia. No TRACY. Alcohol level nondetectable. 01/12/24 21:36 01/12/24 21:36 Labs: Lab Results 01/12/24 01/12/24 01/12/24 Range/Units 21:14 21:36 22:32 WBC 6.9 (4.8-10.8) X10*3/uL RBC 5.39 (4.60-5.80) X10*6/uL Hgb 15.6 (14.0-18.0) g/dl Hct 47.3 (42.0-52.0) % MCV 87.8 (80.0-98.0) fL MCH 28.9 (27.0-33.0) pg MCHC 33.0 (31.0-36.0) g/dl RDW 12.6 (11.0-16.0) % Plt Count 237 (160-400) X10*3/uL MPV 10.9 (9.4-12.4) fL Immature Gran % (Auto) 0.3 (0.0-0.4) % Neut % (Auto) 70.2 (45-73) % Lymph % (Auto) 20.7 (20-40) % Mills % (Auto) 7.1 (2-11) % Eos % (Auto) 1.3 (0-4) % Baso % (Auto) 0.4 (0-2) % Lymph # (Auto) 1.4 (1.2-4.9) X10*3/uL Mills # (Auto) 0.5 (0.1-1.2) X10*3/uL Eos # (Auto) 0.1 (0.0-0.4) X10*3/uL Baso # (Auto) 0.0 (0.0-0.2) X10*3/uL Abs Immat Gran (auto) 0.02 (0.00-0.03) X10*3/uL Absolute Neuts (auto) 4.8 (2.0-8.3) x10*3/uL Absolute Nucleated RBC 0.000 (0.0-0.012) X10*3/uL Nucleated RBC % (auto) 0.0 (0.0-0.2) /100WBC Sodium 144 (135-145) mmol/L Potassium 3.2 L D (3.3-5.1) mmol/L Chloride 104 (96-108) mmol/L Carbon Dioxide 31 H (22-29) mmol/L Anion Gap 12 (12-20) BUN 11 (9-16) mg/dL Creatinine 0.76 (0.5-1.4) mg/dL Estim Creat Clear Calc 107.7 Estimated GFR > 60 POC Glucose 80 46 L* (60-115) mg/dL Random Glucose 51 L* (60-115) mg/dL Calcium 11.1 H D (8.4-10.2) mg/dL Total Bilirubin 0.3 (0.0-1.0) mg/dL AST 22 (5-37) U/L ALT 25 (0-40) U/L Alkaline Phosphatase 82 (39-117) U/L Total Protein 8.1 H (6.5-8.0) g/dL Albumin 4.7 (3.5-5.0) g/dL Ethyl Alcohol < 10 mg/dL 01/12/24 Range/Units 23:23 WBC (4.8-10.8) X10*3/uL RBC (4.60-5.80) X10*6/uL Hgb (14.0-18.0) g/dl Hct (42.0-52.0) % MCV (80.0-98.0) fL MCH (27.0-33.0) pg MCHC (31.0-36.0) g/dl RDW (11.0-16.0) % Plt Count (160-400) X10*3/uL MPV (9.4-12.4) fL Immature Gran % (Auto) (0.0-0.4) % Neut % (Auto) (45-73) % Lymph % (Auto) (20-40) % Mills % (Auto) (2-11) % Eos % (Auto) (0-4) % Baso % (Auto) (0-2) % Lymph # (Auto) (1.2-4.9) X10*3/uL Mills # (Auto) (0.1-1.2) X10*3/uL Eos # (Auto) (0.0-0.4) X10*3/uL Baso # (Auto) (0.0-0.2) X10*3/uL Abs Immat Gran (auto) (0.00-0.03) X10*3/uL Absolute Neuts (auto) (2.0-8.3) x10*3/uL Absolute Nucleated RBC (0.0-0.012) X10*3/uL Nucleated RBC % (auto) (0.0-0.2) /100WBC Sodium (135-145) mmol/L Potassium (3.3-5.1) mmol/L Chloride (96-108) mmol/L Carbon Dioxide (22-29) mmol/L Anion Gap (12-20) BUN (9-16) mg/dL Creatinine (0.5-1.4) mg/dL Estim Creat Clear Calc Estimated GFR POC Glucose 210 H (60-115) mg/dL Random Glucose (60-115) mg/dL Calcium (8.4-10.2) mg/dL Total Bilirubin (0.0-1.0) mg/dL AST (5-37) U/L ALT (0-40) U/L Alkaline Phosphatase (39-117) U/L Total Protein (6.5-8.0) g/dL Albumin (3.5-5.0) g/dL Ethyl Alcohol mg/dL Independent Historian Clinical information obtained from an independent historian. History obtained from or confirmed by: EMS External Record Review External record reviewed: Inpatient record (See narrative above) and Outpatient record Chronic Conditions Patient?s care impacted by: Diabetes Social Determinants Patient?s care significantly limited by Social Determinants of Health including: Alcoholism and drug addiction in family Discharge Plan Discharge Clinical Impression: Intentional overdose of insulin, Depression, Hypoglycemia Patient Disposition: Still a Patient Prescriptions: No Action nicotine 7 mg/24 hr patch 24 hour 7 mg transdermal DAILY Qty: 14 0RF simethicone [Gas Relief (simethicone)] 80 mg tablet,chewable 80 mg PO QIDWMHS PRN (Reason: gas) Qty: 60 0RF insulin lispro 100 unit/mL insulin pen 15 unit subcut TID Qty: 15 4RF (DME) pen needle, diabetic [BD Blanca 2nd Gen Pen Needle] 32 gauge x 5/32 needle See Rx Instructions .Route Qty: 100 11RF Rx Instructions: use 5 x daily As directed acetaminophen 325 mg Tablet 650 mg PO Q6H PRN (Reason: Headache/Pain Mild Scale (1-3)) Qty: 0 0RF nicotine (polacrilex) 2 mg Gum 4 mg buccal Q2H PRN (Reason: Nicotine Cravings) Qty: 0 0RF trazodone 100 mg Tablet 100 mg PO BEDTIME PRN (Reason: insomnia) Qty: 0 0RF hydroxyzine HCl 25 mg Tablet 25 mg PO Q6H PRN (Reason: Anxiety) Qty: 0 0RF dextrose [Glutose-15] 40 % Gel 15 g PO Q15M PRN (Reason: Per Hypoglycemia Standing Ord.) Qty: 0 0RF Protocol: Glucose Gel Hypoglycemia Standing Order Protocol Text: For patients able to take PO (patient cooperative and able to swallow). Give Glucose Gel 15 gm PO for Blood Glucose (BG) < 70. Repeat BG every 15 min until BG > 70 x 3, if BG still < 70 and/or patient symptomatic repeat glucose gel or rapid acting carbohydrate. Notify MD if BG does not improve with treatment. magnesium hydroxide [Milk of Magnesia] 400 mg/5 mL Suspension 30 ml PO DAILY PRN (Reason: Constipation) Qty: 0 0RF insulin lispro [Admelog U-100 Insulin lispro] 100 unit/mL Solution See Protocol subcut QID PRN (Reason: continued hyperglycemia) Qty: 0 0RF Protocol: Insulin Correction Scale Less than or equal to 110 ---- Give (units): 0 111 to 150 Give (units): 0 151 to 200 Give (units): 2 201 to 250 Give (units): 4 251 to 300 Give (units): 6 301 to 350 Give (units): 8 Greater than 350 Give (units): 10 Call MD if Blood Glucose > : 350 MAG-AL 200-200 mg/5 mL Suspension 30 ml PO Q6H PRN (Reason: Heartburn/Nausea) Qty: 0 0RF lactulose 20 gram/30 mL Solution 30 g PO TID Qty: 0 0RF Baqsimi 3 mg/actuation spray,non-aerosol 3 mg intranasal ONCE Qty: 2 4RF gabapentin 300 mg capsule 300 mg PO TID 30 Days Qty: 90 6RF insulin degludec [Tresiba FlexTouch U-200] 200 unit/mL (3 mL) insulin pen 28 unit subcut DAILY 30 Days Qty: 4.2 6RF Print Language: Prydeinig
[2024-01-12 23:31] LABS: Glucose, Whole Blood 46 mg/dL (60-115)
[2024-01-12 23:31] LABS: Glucose, Whole Blood 210 mg/dL (60-115)
[2024-01-12 23:56] LABS: Ethanol < 10 mg/dL
--- NOTE | 2024-01-13 | ECG_ITS ---
Test Reason : CHEST PAIN Blood Pressure : / mmHG Vent. Rate : 075 BPM Atrial Rate : 075 BPM P-R Int : 144 ms QRS Dur : 086 ms QT Int : 362 ms P-R-T Axes : 054 064 067 degrees QTc Int : 404 ms Normal sinus rhythm Normal ECG When compared with ECG of 13-JAN-2024 05:16, No significant change was found Referred By: Tito Hooks Electronically Signed By:Baldev Morales
[2024-01-13 02:02] LABS: Glucose, Whole Blood 214 mg/dL (60-115)
[2024-01-13 03:05] LABS: Glucose, Whole Blood 210 mg/dL (60-115)
--- NOTE | 2024-01-13 05:22 | PC.NURSE ---
pt with complaints of chest pain. EKG ordered.
[2024-01-13 05:38] VITALS: BP 152/93; PULSE 78; RESP 14; O2SAT 100
[2024-01-13 06:07] LABS: Amphetamine Screen Urine Not Detected (Not Detect); Barbiturates, Urine Not Detected (Not Detect); Benzodiazepines Screen Urine Not Detected (Not Detect); Buprenorphine Scr Not Detected (Not Detect); Cannabinoid Screen Urine POSITIVE (Not Detect); Cocaine Screen Urine POSITIVE (Not Detect); Fentanyl, urine Not Detected (Not Detect); Methadone Screen, Urine Not Detected (Not Detect); Opiate Screen Urine Not Detected (Not Detect); Oxycodone Screen Urine Not Detected (Not Detect); Phencyclidine Screen Urine Not Detected (Not Detect)
[2024-01-13 07:47] LABS: Glucose, Whole Blood 317 mg/dL (60-115)
[2024-01-13 08:00] VITALS: BP 110/68; PULSE 91; RESP 16; TEMP 37.2; O2SAT 98
--- NOTE | 2024-01-13 08:56 | MHC.CARE ---
Pt does not meet IPLOC and will D/C and be referred to [facility] for OP providers.
[2024-01-13 08:58] VITALS: BP 110/68; PULSE 91; RESP 16; TEMP 37.2; O2SAT 98
--- NOTE | 2024-01-13 10:21 | MHC.CARE ---
CC referral was completed.
== END 2024-01-13 09:11 | disposition home or self-care (01) ==
PROVIDERS: Nurse Practitioner Family; Emergency Provider Emergency Medicine
DX: E10.649 Type 1 diabetes mellitus with hypoglycemia without coma (principal); F32.A Depression, unspecified; E78.5 Hyperlipidemia, unspecified; Z79.4 Long term (current) use of insulin; Z79.899 Other long term (current) drug therapy
CPT/HCPCS: 36415; 80053; 80307; 82947; 85025; 93005; 96365; 99284; 99285; S9485

== ENCOUNTER → 2024-01-13 05:18 | Outpatient (BNV) | payer OTHER, SELFPAY | PROVIDERS: Emergency Provider Emergency Medicine; Visit Provider Internal Medicine Cardiovascular Disease | DX: R07.9 Chest pain, unspecified (principal) | CPT/HCPCS: 93010 ==

== ENCOUNTER 2024-01-28 15:27 | Outpatient (AMB) | payer OTHER, SELFPAY ==
--- NOTE | 2024-01-28 15:41 | A.OFFPC_ITS ---
Vital Signs 01/28/24 15:42 Height 5 ft 6 in Weight 112 lb 4 oz BMI 18.1 BP 120/60 Blood Pressure Location Lt brachial Position Sitting Pulse 103 H Pulse Source Pulse Oximeter Pulse Oximetry (%) 97 Oxygen Delivery Method Room Air Intake Visit Reasons: 3mth f/u Intake Note: Patient is here to follow up on DM, MDD, HLD. 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 per policy Accompanied by: Self / Same As Patient Allergies No Known Allergies [No Known Allergies*] Allergy (Verified 01/29/24 13:17) Medication List - Last Reconciled 01/29/24 by Ryland Miller MD acetaminophen 650 mg (2 x 325 mg) PO Q6H PRN aluminum-magnesium hydroxide 200-200 mg/5 mL (MAG-AL) 30 mL PO Q6H PRN dextrose 40% (Glutose-15) 15 grams See Protocol PO Q15M PRN gabapentin 300 mg PO TID 30 days glucagon 3 mg/actuation (Baqsimi) 3 mg intranasal ONCE hydroxyzine HCl 25 mg PO Q6H PRN insulin degludec (Tresiba FlexTouch U-200 insulin) 28 units (0.14 mL) subcut DAILY 30 days insulin lispro (Admelog U-100 Insulin lispro) See Protocol units subcut QID PRN insulin lispro 15 units (0.15 mL) subcut TID lactulose 30 grams (45 mL) PO TID magnesium hydroxide (Milk of Magnesia) 30 mL PO DAILY PRN meloxicam 15 mg PO DAILY pen needle, diabetic (BD Blanca 2nd Gen Pen Needle) use 5 x daily As directed simethicone (Gas Relief (simethicone)) 80 mg PO QIDWMHS PRN trazodone 100 mg PO BEDTIME PRN Tobacco use date assessed: 01/28/24 Dental Screening Dental Screen Date: 05/01/23 HPI 3mth f/u HPI Details 34-year-old male presents to the office for a follow-up visit. Patient is complaining of intense pain in his feet is also complaining of numbness in the feet. Describes the pain as burning in nature. Patient is a type 1 diabetic. Has not been checking his sugars in the past few weeks. He has discontinued the Neurontin. Lives with his mother. Not working. Patient has not been taking any illegal substances by his own admission. REPLACED BY [facility] Medical History Nicotine dependence MDD (major depressive disorder), severe Cocaine use disorder Noncompliance Dental decay Diabetes mellitus type 1, uncontrolled Hyperlipidemia LDL goal <100 Surgical History No history of previous surgery Family History Maternal Grandmother Diabetes, type I Social History Household Members: Other Housing: Apartment Housing Other:: rents a room Do you presently have visiting nurse or other home services: No Unable to assess alcohol history related to: Unknown Alcohol intake: never Patient Tobacco Use Status: Former Tobacco user Tobacco use type: Cigarette Cigarettes Per Day: 5 e-Cigarette/Vaping Use: Currently Using Second Hand Smoke Exposure: No Substance Use Type: Marijuana service: No Current occupational status: employed Cognitive needs: No Hearing needs: No Vision needs: No Questionnaire Thrive Questionnaire Date Thrive assessed: 09/08/23 EMMA-7 AMB Questionnaire EMMA-7 Date EMMA - 7 assessed: 04/01/23 Source: Developed by Drs. Luis Silva, Isabelle Roca, Grabiel Mario and colleagues, with an educational italo from [employer]. Physical exam (Primary Care) Vital Signs: Last Vital Signs Pulse 103 H 01/28/24 15:42 BP 120/60 01/28/24 15:42 Pulse Ox 97 01/28/24 15:42 Oxygen Delivery Method Room Air 01/28/24 15:42 BMI result Body Mass Index 18.1 Tobacco/Smoking Status: Tobacco use Status Tobacco use date assessed 01/28/24 01/28/24 15:42 Patient Tobacco Use Status Former Tobacco user 01/28/24 15:42 Tobacco use type Cigarette 01/28/24 15:42 e-Cigarette/Vaping Use Currently Using 01/28/24 15:54 Thrive Assessment: Date of Thrive Assessment Date Thrive assessed 09/08/23 01/28/24 15:42 Const General: cooperative and healthy appearing Nutritional Appearance: well nourished Orientation/consciousness: patient oriented x3 Limitations: no limitations HENMT Head: Yes normal to inspection Eyes General: appearance normal, both eyes and all related structures Neck Neck: Yes normal visual inspection Chest Chest palpation & inspection: normal palpation of entire chest wall Resp Effort & Inspection: normal respiratory effort Neuro General: patient oriented x3 Office Procedures Flu Questionnaire Does the patient have a severe egg allergy?: No Does the patient have severe life threatening allergies?: No Does the patient have a fever or illness today?: No Has the patient ever had Guillain-[place] Syndrome?: No Has the patient ever had any past reaction to a flu shot?: No Results AMB Hemoglobin A1c AMB Hemoglobin A1c 9.1 % Last Edit by CALOS Lynn on 01/28/24 15:57 Immunizations Fluarix Triv [id number] (PF) 45 mcg (15 mcg x 3)/0.5 mL IM syringe Performing Provider: Ryland Miller MD [facility] Administered by: Taryn Cruz LPN on 01/28/24 15:58 Dose Route Admin Location Dispensed Lot Number Expiration Date NDC Manager Shell 0.5 mL IM Left Deltoid 0.5 mL [id number] 09/20/24 [id number] curated.by VIS Given Date VIS Provided VIS Publication Date 01/28/24 Single Vaccine 20 Eligibility Eligibility Date Funding Source Not [facility] Eligible 01/28/24 Private Results Reviewed Results Reviewed: Laboratory Last Values Hgb A1c (Clinic) 9.1 % (4.0-6.0) H 01/28/24 15:42 Coding Level of Care Code Est Pt Level 3 (49256) Complex EM visit Add On G2211 Diagnoses Diabetes mellitus type 1, uncontrolled E10.65 Assessment & Plan Assessment & Plan (1) Diabetes mellitus type 1, uncontrolled: Comment: since age 10 Code(s): E10.65 - Type 1 diabetes mellitus with hyperglycemia Category: Medical Plan: Patient has type 1 diabetes with peripheral neuropathy. I encouraged him to restart the Neurontin. Meloxicam as additional pain relief has been ordered. I am hesitating to put him on any stronger medications due to fear of addiction. Orders: Orders AMB Hemoglobin A1c 01/28/24 E10.65 - Type 1 diabetes mellitus with hyperglycemia Influenza [id number] Immunization 01/28/24 Z23 - Encounter for immunization Medications: New meloxicam 15 mg PO DAILY 30 tabs 0RF
[2024-01-28 15:42] VITALS: BP 120/60; PULSE 103; O2SAT 97; BMI 18.1
== END 2024-01-28 16:18 | disposition home or self-care (01) ==
LOC: HO.HMCH 15:27
PROVIDERS: PCP Internal Medicine; Visit Provider Internal Medicine
DX: E10.65 Type 1 diabetes mellitus with hyperglycemia (principal)

== ENCOUNTER → 2024-01-28 15:27 | Outpatient (BNVA) | payer OTHER, SELFPAY | PROVIDERS: PCP Internal Medicine; Visit Provider Internal Medicine | DX: Z23 Encounter for immunization (principal); E10.65 Type 1 diabetes mellitus with hyperglycemia | CPT/HCPCS: 83036; 90471; 90656; 99212 ==

== ENCOUNTER 2024-01-29 13:19 | Outpatient (AMB) | payer OTHER, SELFPAY ==
--- NOTE | 2024-01-29 07:56 | A.OFFVIS_ITS ---
Vital Signs 01/29/24 13:40 Height 5 ft 6 in Weight 116 lb 13.52 oz BMI 18.9 BP 122/62 Blood Pressure Location Rt brachial Position Sitting Pulse 80 Pulse Source Pulse Oximeter Intake Visit Reasons: T1DM/UNABLE TO LVM Intake Note: Patient presents today for a follow-up on Type 1 Diabetes Mellitus: Last Diabetic Eye exam: DUE Last Podiatry Exam: Does not see a Sprigger Most recent HbA1c: 9.1%, 01/28/2024 UR Ketone Dip 40 Random Glucose- 409 mg/dL, Today Spiral Tube Winder Required: No Accompanied by: Self / Same As Patient Allergies No Known Allergies [No Known Allergies*] Allergy (Verified 01/29/24 13:47) HPI Comments Details: Patient is 34 yo male with DM type 1 diagnosed at age 10 who presents for management of diabetes. He was last seen by myself 11/06/23 at which time he was changed from Lantus to Tresiba. A1c 01/29/24 9.1%, 8.9% on 10/06/23, previous A1c in May was 12.1 %. He has a prior history of suicide attempt with overdose of insulin earlier this year. He denies current suicidal thoughts. He feels depressed and hopeless. He reports he does see someone for depression but not sure when he was last seen or who this is. He takes Trazone at for sleep. He endorses using cannibis but no other street drugs at present. Diabetes medications: Tresiba 28 units Lispro 6-12 units for lunch, supper and later evening snack takes typically just 1-2 times per day Freestyle eusebio sensor 2 average glucose: [252] 14 day continuous glucose sensor report reviewed TIme in ranges: Forty-seven % very high (above 250) 27 % high (181-250) 24 % in range (70-180] 1 % low (69-55) 1 % very low (below 54) 44 Glucose variability (target <36%) Interpretation of CGMS [readings overall high with the occasional low he has scans only from 12:00 till 00:00 ] Has neuropathy was advised to restart gabapentin by his PCP Symptoms: Cramping in feet, numbness which he feels is better when his sugars are in normal range Hypoglycemia:0cc Eye exam: yrs ago needs to make appt needs new provider No Nephropathy: 10/14/2023 albumin less than 5.0 09/07/2023 eGFR>60 Exercise: little He smokes 3 cigarettes per day and does vape does not carry sugar source despite recommendation No recent known DKA but has had in the past He was on an insulin pump in his teen years. He was unable to tolerate atorvastin side effect: diarrhea [facility] Medical History Nicotine dependence MDD (major depressive disorder), severe Cocaine use disorder Noncompliance Dental decay Diabetes mellitus type 1, uncontrolled Hyperlipidemia LDL goal <100 Surgical History No history of previous surgery Family History Maternal Grandmother Diabetes, type I Social History Household Members: Other Housing: Apartment Housing Other:: rents a room Do you presently have visiting nurse or other home services: No Unable to assess alcohol history related to: Unknown Alcohol intake: never Patient Tobacco Use Status: Former Tobacco user Tobacco use type: Cigarette Cigarettes Per Day: 5 e-Cigarette/Vaping Use: Currently Using Second Hand Smoke Exposure: No Substance Use Type: Marijuana service: No Current occupational status: employed Cognitive needs: No Hearing needs: No Vision needs: No Physical Exam Vital Signs: Last Vital Signs Pulse 80 01/29/24 13:40 BP 122/62 01/29/24 13:40 BMI result Body Mass Index 18.9 Const Other: Absence of Cushingoid features. Absence of acromegalic features. Neck exam reveals nl size thyroid about 15 gms. No thyroid nodules palpable. Heart S1 S2, Reg R/R. No M/R G. Skin exam reveals absence of vitiligo or acanthosis nigricans. affect flat, maintains eye contact Visual exam of foot performed. No ulcerations or open lesions. No inter digit maceration or fissuring. No onychomycosis, no callouses. Sensation diminshed to monofilament exam. Vibratory sensation is diminshed with 128 Hz tuning fork. Results UR Ketone Dip UR Ketone Dip 40 Last Edit by CALOS Wilson on 01/29/24 14:20 Results Reviewed Results Reviewed: Laboratory Last Values Glucose (Clinic) 409 mg/dL (60-115) H* 01/29/24 13:44 Ur Ketones (Stick) 40 01/29/24 14:20 Assessment & Plan Assessment & Plan (1) Diabetes mellitus type 1, uncontrolled: Comment: since age 10 Code(s): E10.65 - Type 1 diabetes mellitus with hyperglycemia Category: Medical Plan: 34 year old Type 1 diabetic with history of nephropathy on gabapentin with recent A1C of 9.1%. The bulk of today's visit focused on the need for tighter control to prevent complications New dosing: Diabetes medications: Tresiba 32 units Lispro dose for lunch, supper and later evening snack 80-150 6 units 151-200 8 units 201-250 10 units 251-300 12 units over 300 14 units Patient has agreed to start on a freestyle eusebio 3 which should help him with better monitoring. We discussed Cequr insulin patch pump which he is not interested in. I suiggested when he is out of the house that he carry an insulin pen with him in his cargo pants which he is unwilling to do, He is depressed but not suicidal. Will alert PCP via tiger text and send note. The patient had an opportunity to ask questions regarding treatment plan. The patient expressed understanding and agreement with the above treatment plan. The patient is aware they should contact our office by phone for worsening glucose readings or for any low blood sugars which may warrant a change in diabetes medication. Compliance is encouraged with medications and any followup testing/consults which may have been ordered. Orders: Orders AMB Ketone Urine Dipstick Today E10.65 - Type 1 diabetes mellitus with hyperglycemia, R73.9 - Hyperglycemia, unspecified Referrals Ophthalmology Referral E10.65 - Type 1 diabetes mellitus with hyperglycemia Medications: New FreeStyle Eusebio 3 Plus Sensor (blood-glucose sensor) As directed every 15 days 2 ea 11RF NS E10.65 - Type 1 diabetes mellitus with hyperglycemia blood-glucose meter,continuous (FreeStyle Eusebio 3 [place]) As directed 1 ea 1RF Changed From insulin degludec (Tresiba FlexTouch U-200 insulin) 28 units (0.14 mL) subcut DAILY 30 days 4.2 mL 6RF E10.65 - Type 1 diabetes mellitus with hyperglycemia To insulin degludec (Tresiba FlexTouch U-200 insulin) 32 units (0.16 mL) subcut DAILY 30 days 6 mL 6RF E10.65 - Type 1 diabetes mellitus with hyperglycemia From insulin lispro 15 units (0.15 mL) subcut TID 15 mL 4RF E10.65 - Type 1 diabetes mellitus with hyperglycemia To insulin lispro subcutaneously 3 times a day with meals 80-150 6 units 151-200 8 units 201-250 10units 250-300 12 units over 300 14 units 30 days 12 mL 4RF E10.65 - Type 1 diabetes mellitus with hyperglycemia Patient Instructions: The patient was counseled to achieve a target A1C of 7% (154 avg). Fasting blood sugars should be 90-130 in the morning and less than 180 two hours after meals. Reviewed the relationship between poor diabetic control and the development of complications. The patient was counseled to always carry a source of sugar and on the rule of 15's: Take 3 glucose tablets and repeat again in 15 minutes if blood sugar is not in normal range. Continue to repeat every 15 minutes until blood sugar is normal. Wear closed toe shoes, never walk barefooted and inspect the feet daily. For any signs of infection or open wound patient you should notify your PCP or go to urgent care/ER. Coding Level of Care Code Est Pt Level 5 (77482) Complex EM visit Add On G2211 Diagnoses Diabetes mellitus type 1, uncontrolled E10.65 Time Spent (min) 45 Comment Time spent reviewing labs/provider notes, face to face, chart doc
[2024-01-29 13:40] VITALS: BP 122/62; PULSE 80; BMI 18.9
[2024-01-29 13:50] LABS: Glucose, Whole Blood 409 mg/dL (60-115)
== END 2024-01-29 14:20 | disposition home or self-care (01) ==
LOC: HO.ENCR 13:20
PROVIDERS: PCP Internal Medicine; Visit Provider Nurse Practitioner Adult Health
DX: E10.65 Type 1 diabetes mellitus with hyperglycemia (principal)
CPT/HCPCS: 99215; G2211

== ENCOUNTER → 2024-01-29 13:19 | Outpatient (BNVA) | payer OTHER, SELFPAY | PROVIDERS: Visit Provider Nurse Practitioner Adult Health | DX: E10.65 Type 1 diabetes mellitus with hyperglycemia (principal); T38.3X2A Poisoning by insulin and oral hypoglycemic [antidiabetic] drugs, intentional self-harm, initial encounter; Z79.4 Long term (current) use of insulin | CPT/HCPCS: 81002; 82947; 99212 ==

== ENCOUNTER 2024-05-18 13:00 | Outpatient (AMB) | payer OTHER, SELFPAY ==
--- NOTE | 2024-05-18 11:43 | A.OFFVIS_ITS ---
Intake Visit Reasons: Follow up DM Allergies No Known Allergies [No Known Allergies*] Allergy (Verified 01/29/24 13:47) [facility] Medical History Nicotine dependence MDD (major depressive disorder), severe Cocaine use disorder Noncompliance Dental decay Diabetes mellitus type 1, uncontrolled Hyperlipidemia LDL goal <100 Surgical History No history of previous surgery Family History Maternal Grandmother Diabetes, type I Social History Household Members: Other Housing: Apartment Housing Other:: rents a room Do you presently have visiting nurse or other home services: No Unable to assess alcohol history related to: Unknown Alcohol intake: never Patient Tobacco Use Status: Former Tobacco user Tobacco use type: Cigarette Cigarettes Per Day: 5 e-Cigarette/Vaping Use: Currently Using Second Hand Smoke Exposure: No Substance Use Type: Marijuana service: No Current occupational status: employed Cognitive needs: No Hearing needs: No Vision needs: No Coding
[2024-05-18 13:02] VITALS: BP 102/64; PULSE 92; O2SAT 99; BMI 20.6
--- NOTE | 2024-05-18 13:02 | A.OFFVIS_ITS ---
Vital Signs 05/18/24 13:02 Height 5 ft 6 in Weight 127 lb 13.89 oz BMI 20.6 BP 102/64 Blood Pressure Location Rt brachial Position Sitting Pulse 92 Pulse Source Pulse Oximeter Pulse Oximetry (%) 99 Oxygen Delivery Method Room Air Intake Visit Reasons: Follow up DM Intake Note: Patient presents today for a follow-up on Type 1 Diabetes Mellitus: Last Diabetic eye exam was on: DUE Last Podiatry exam was on: Patient does not see a Biology Intern Most recent HbA1c: 9.3%, 05/18/2024 Random Glucose- 93 mg/dL, Today Re-check Random Glucose- 70 mg/dL, Today Cup Setter Lockstitch Required: No Accompanied by: Self / Same As Patient Allergies No Known Allergies [No Known Allergies*] Allergy (Verified 01/29/24 13:47) HPI Comments Details: Patient is 34 yo male with DM type 1 diagnosed at age 10 who presents for management of diabetes. He was last seen by myself 02/08/24. A1c 01/29/24 9.1%, 8.9% on 10/06/23, previous A1c in May was 12.1 %. Hgb A1C 9.3% He has a prior history of suicide attempt with overdose of insulin earlier this year. He denies current suicidal thoughts. He feels depressed and hopeless. He reports he does see someone for depression but not sure when he was last seen or who this is. He takes Trazone at for sleep. He endorses using cannibis but no other street drugs at present. Diabetes medications: Tresiba 28 units Lispro 6-12 units for lunch, supper and later evening snack if his sugars are over 200 4 units iif he eats breakfast he will take 8-10 Dexcom average glucose: 154 14 day continuous glucose monitor report reviewed Glucose Managment indicator [ ] % Days with CGM data [ ] % TIme in ranges: 20 % very high (above 250) 13 % high ?(181-250) 47 % in range ?(70-180] 17 % low (69-55) 3 % ?very low (below 54) He had a severe hypoglycemic episode after he tried to commit suicide by insulin injection. He is now seeing the therapist every week and denies current suicidal ideation. Has neuropathy was advised to restart gabapentin by his PCP Symptoms: Cramping in feet, numbness which he feels is better when his sugars are in normal range Hypoglycemia:0cc Eye exam: yrs ago needs to make appt needs new provider No Nephropathy: 10/14/2023 albumin less than 5.0 09/07/2023 eGFR>60 Exercise: little He smokes 3 cigarettes per day and does vape does not carry sugar source despite recommendation No recent known DKA but has had in the past He was on an insulin pump in his teen years. He was unable to tolerate atorvastin side effect: diarrhea [facility] Medical History (Updated 05/18/24 @ 13:41 by Sunita Woodruff NP) Suicide attempt Nicotine dependence MDD (major depressive disorder), severe Cocaine use disorder Noncompliance Dental decay Diabetes mellitus type 1, uncontrolled Hyperlipidemia LDL goal <100 Surgical History No history of previous surgery Family History Maternal Grandmother Diabetes, type I Social History Household Members: Other Housing: Apartment Housing Other:: rents a room Do you presently have visiting nurse or other home services: No Unable to assess alcohol history related to: Unknown Alcohol intake: never Patient Tobacco Use Status: Former Tobacco user Tobacco use type: Cigarette Cigarettes Per Day: 5 e-Cigarette/Vaping Use: Currently Using Second Hand Smoke Exposure: No Substance Use Type: Marijuana service: No Current occupational status: employed Cognitive needs: No Hearing needs: No Vision needs: No Physical Exam Vital Signs: Last Vital Signs Pulse 92 05/18/24 13:02 BP 102/64 05/18/24 13:02 Pulse Ox 99 05/18/24 13:02 Oxygen Delivery Method Room Air 05/18/24 13:02 BMI result Body Mass Index 20.6 Results AMB Hemoglobin A1c AMB Hemoglobin A1c 9.3 % Last Edit by CALOS Wilson on 05/18/24 13:21 Results Reviewed Results Reviewed: Laboratory Last Values Glucose (Clinic) 70 mg/dL (60-115) 05/18/24 13:45 Hgb A1c (Clinic) 9.3 % (4.0-6.0) H 05/18/24 13:20 Assessment & Plan Assessment & Plan (1) Diabetes mellitus type 1, uncontrolled: Comment: since age 10 Code(s): E10.65 - Type 1 diabetes mellitus with hyperglycemia Category: Medical Plan: Type 1 diabetic with a neuropathy A1c of 9.3% although recent download reflects better readings. New dosing: Tresiba 24 units Lispro 80-150 4 units 151-200 7 units 201-250 10 units 251-300 12-14 check ketones/follow protocol over 300 check ketones patient was treated with 2 sets of 3 glucose tablets and one 14 gram can of gingerale. Against medical advice he left clinic. Last glucose reading 66 and asymptomatic. HE is aware a low sugar could lead to a fall, cardiac arrest. He was advised not to drive and to go home and eat DKA prevention reviewed extensively in a written sheet was given to the patient. The patient had an opportunity to ask questions regarding treatment plan. The patient expressed understanding and agreement with the above treatment plan. The patient is aware they should contact our office by phone for worsening glucose readings or for any low blood sugars which may warrant a change in diabetes medication. Compliance is encouraged with medications and any followup testing/consults which may have been ordered. (2) Suicide attempt: Comment: multiple suicide attempts by insulin injection Code(s): T14.91XA - Suicide attempt, initial encounter Category: Medical Plan: 34-year-old type 1 diabetic prior suicide attempts with excess insulin injection the last occurring 6 days ago. Denies current suicidal ideology in his being seen by therapist weekly and appears stable. I will see him back in two weeks. Orders: Orders AMB Hemoglobin A1c Today E10.65 - Type 1 diabetes mellitus with hyperglycemia Referrals Ophthalmology Referral E10.65 - Type 1 diabetes mellitus with hyperglycemia Medications: New pen needle, diabetic (Comfort EZ Pen [place]) 4 per day 200 ea 3RF E10.65 - Type 1 diabetes mellitus with hyperglycemia acetone (urine) test (Ketone Urine Test strips) tid prn glucose over 250, nausea, vomiting or illness 25 ea 2RF glucose (Dex4 Glucose) every 15 minutes until symptoms of low blood sugar are controlled 16 grams (4 x 4 gram) PO Q15M PRN 30 tabs 3RF hypoglycemia 30 days MDD 16 tablets Changed From insulin lispro subcutaneously 3 times a day with meals 80-150 6 units 151-200 8 units 201-250 10units 250-300 12 units over 300 14 units 30 days 12 mL 4RF E10.65 - Type 1 diabetes mellitus with hyperglycemia To insulin lispro subcutaneously 3 times a day with meals 80-150 4 units 151-200 7 units 201-250 10units 250-300 12-14 units over 300 14 units 12 mL 4RF 30 days E10.65 - Type 1 diabetes mellitus with hyperglycemia From blood-glucose meter,continuous (FreeStyle Eusebio 3 [place]) As directed 1 ea 1RF To blood-glucose meter,continuous (FreeStyle Eusebio 3 [place]) for use with sensors change every 15 days 2 ea 11RF From insulin degludec (Tresiba FlexTouch U-200 insulin) 32 units (0.16 mL) subcut DAILY 30 days 6 mL 6RF E10.65 - Type 1 diabetes mellitus with hyperglycemia To insulin degludec (Tresiba FlexTouch U-200 insulin) 24 units (0.12 mL) subcut DAILY 30 days 6 mL 6RF E10.65 - Type 1 diabetes mellitus with hyperglycemia Refilled insulin degludec (Tresiba FlexTouch U-200 insulin) 24 units (0.12 mL) subcut DAILY 6 mL 6RF 30 days E10.65 - Type 1 diabetes mellitus with hyperglycemia blood-glucose meter,continuous (FreeStyle Eusebio 3 [place]) for use with sensors change every 15 days 2 ea 11RF FreeStyle Eusebio 3 Plus Sensor (blood-glucose sensor) As directed every 15 days 2 ea 11RF NS E10.65 - Type 1 diabetes mellitus with hyperglycemia Discontinued pen needle, diabetic (BD [place] 2nd Gen Pen Needle) Discontinued Reason: Doctor's Order use 5 x daily As directed 100 ea 11RF E10.65 - Type 1 diabetes mellitus with hyperglycemia Patient Instructions: Symptoms of DKA (diabetic ketoacidosis): early: frequent urination, dry mouth, fatigue, feeling ill, severe symptoms: ketones in the urine, abdominal pain, nausea, vomiting and weakness. It is important to hydrate with sugar free liquids every 15-30 minutes and bring the sugars down to normal levels. If you are moderate or severe with ketones or unable to bring glucose to less than 200, go to the emergency room. The patient was counseled to achieve a target A1C of 7% (154 avg). Fasting blood sugars should be 90-130 in the morning and less than 180 two hours after meals. Reviewed the relationship between poor diabetic control and the development of complications. Check your feet daily looking for any signs of infection, drainage, redness, ulceration and seek medical attention if this occurs. Break in shoes gradually and do not wear open-toed shoes or walk stocking footed or barefooted. Take 15 carb carbohydrate grams to treat a low sugar (3-4 glucose tablets, half a glass of juice or 15 carbohydrate grams of soft candy such as gummie snacks). Recheck your sugar in 15 minutes and re-treat again with 15 carbohydrate grams if low or still with symptoms. Do not drive a car or operate machinery if you do not know what your blood sugar is, if it is low or in excess of 300. Coding Level of Care Code Est Pt Level 5 (05690) Complex EM visit Add On G2211 Diagnoses Diabetes mellitus type 1, uncontrolled E10.65 Suicide attempt T14.91XA Time Spent (min) 45 Comment Time spent reviewing labs/provider notes, glucose,sensor reports, face to face, chart doc
[2024-05-18 13:13] LABS: Glucose, Whole Blood 93 mg/dL (60-115)
[2024-05-18 13:51] LABS: Glucose, Whole Blood 70 mg/dL (60-115)
--- OUTSIDE RECORDS SUMMARY | 2024-05-18 15:54 | XMS_ITS | Clinical Summary ---
Author Organization [facility] ity Address [address] [place] [address] Care Team Providers Care Clinical Engineering Manager Name Role Phone Unavailable Primary Care Provider Unavailabl e Social History Tobacco Use Types Packs/Day Years Used Date Smoking Tobacco: Never Assessed Sex and Gender Information Value Date Recorded Sex Assigned at Not on file Legal Sex Male 4:56 PM EST Gender Identity Not on file Sexual Orientation Not on file Plan of Treatment Health Maintenance Due Date Last Done Comments DTaP,Tdap,and Td Vaccines (1 - Tdap) 2010 Hepatitis B Vaccines (1 of 3 - 19+ 3-dose series) 2010 COVID-19 Vaccine (2023-2 5 season) 2023 Influenza Vaccine (#1) 2023 HIB Vaccines Aged Out No longer eligi ble based on patient's age to complete this topic HPV Vaccines Aged Out No longer eligi ble based on patient's age to complete this topic Hepatitis A Vaccines Aged Out No long er eligible based on patient's age to complete this topic IPV Vaccines Aged Out No longer eligi ble based on patient's age to complete this topic MMR Vaccines Aged Out No longer eligi ble based on patient's age to complete this topic Meningococcal ACWY Vaccine Aged Out N o longer eligible based on patient's age to complete this topic Meningococcal B Vacine Aged Out No lo nger eligible based on patient's age to complete this topic Pneumococcal Vaccine: Pediat rics (0 to 5 Years) and At-Risk Patients (6 to 64 Years) Aged Out No longer eligible b ased on patient's age to complete this topic RSV Immunization Patients Un daria 20 months Aged Out No longer eligible b ased on patient's age to complete this topic Varicella Vaccines Aged Out No longer eligible based on patient's age to complete this topic
== END 2024-05-18 15:02 | disposition home or self-care (01) ==
PROVIDERS: PCP Internal Medicine; Visit Provider Nurse Practitioner Adult Health
DX: E10.65 Type 1 diabetes mellitus with hyperglycemia (principal); T14.91XA Suicide attempt, initial encounter
CPT/HCPCS: 99215; G2211

== ENCOUNTER → 2024-05-18 13:00 | Outpatient (BNVA) | payer OTHER, SELFPAY | PROVIDERS: PCP Internal Medicine; Visit Provider Nurse Practitioner Adult Health | DX: E10.65 Type 1 diabetes mellitus with hyperglycemia (principal); T14.91XD Suicide attempt, subsequent encounter; T38.3X2D Poisoning by insulin and oral hypoglycemic [antidiabetic] drugs, intentional self-harm, subsequent encounter; Z79.4 Long term (current) use of insulin | CPT/HCPCS: 82947; 83036; 99212 ==

== ENCOUNTER 2024-05-20 13:26 | Outpatient (AMB) | payer OTHER, SELFPAY ==
[2024-05-20 13:38] VITALS: BP 110/72; PULSE 81; O2SAT 98; BMI 20.7
--- NOTE | 2024-05-20 13:38 | A.OFFPC_ITS ---
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: No Accompanied by: Self / Same As Patient Allergies No Known Allergies [No Known Allergies*] Allergy (Verified 05/20/24 14:05) Medication List - Last Reconciled 05/20/24 by Ryland Miller MD acetaminophen 650 mg (2 x 325 mg) PO Q6H PRN acetone (urine) test (Ketone Urine Test strips) tid prn glucose over 250, nausea, vomiting or illness aluminum-magnesium hydroxide 200-200 mg/5 mL (MAG-AL) 30 mL PO Q6H PRN blood-glucose meter,continuous (FreeStyle Eusebio 3 [place]) for use with sensors change every 15 days dextrose 40% (Glutose-15) 15 grams See Protocol PO Q15M PRN FreeStyle Eusebio 3 Plus Sensor (blood-glucose sensor) As directed every 15 days NS gabapentin 300 mg PO TID 30 days glucagon 3 mg/actuation (Baqsimi) 3 mg intranasal ONCE glucose (Dex4 Glucose) 16 grams (4 x 4 gram) PO Q15M PRN 30 days MDD 16 tablets hydroxyzine HCl 25 mg PO Q6H PRN insulin degludec (Tresiba FlexTouch U-200 insulin) 24 units (0.12 mL) subcut DAILY 30 days insulin lispro subcutaneously 3 times a day with meals 80-150 4 units 151- 200 7 units 201-250 10units 250-300 12-14 units over 300 14 units 30 days lactulose 30 grams (45 mL) PO TID magnesium hydroxide (Milk of Magnesia) 30 mL PO DAILY PRN meloxicam 15 mg PO DAILY meloxicam 15 mg PO DAILY pen needle, diabetic (Comfort EZ Pen [place]) 4 per day simethicone (Gas Relief (simethicone)) 80 mg PO QIDWMHS PRN trazodone 100 mg PO BEDTIME PRN Tobacco use date assessed: 05/20/24 Dental Screening Dental Screen Date: 05/20/24 Did you have a dental visit in the last 12 months?: Yes Did you have a dental problem in the last 6 months where you did not have access to dental care?: No Was dental information given to patient?: Patient has dentist [facility] Medical History (Updated 05/18/24 @ 13:41 by Sunita Woodruff NP) Suicide attempt Nicotine dependence MDD (major depressive disorder), severe Cocaine use disorder Noncompliance Dental decay Diabetes mellitus type 1, uncontrolled Hyperlipidemia LDL goal <100 Surgical History No history of previous surgery Family History Maternal Grandmother Diabetes, type I Social History Household Members: Other Housing: Apartment Housing Other:: rents a room Do you presently have visiting nurse or other home services: No Unable to assess alcohol history related to: Unknown Alcohol intake: never Patient Tobacco Use Status: Former Tobacco user Tobacco use type: Cigarette Cigarettes Per Day: 5 e-Cigarette/Vaping Use: Currently Using Second Hand Smoke Exposure: No Substance Use Type: Marijuana service: No Current occupational status: employed Cognitive needs: No Hearing needs: No Vision needs: No Questionnaire PHQ-9 Over the last 2 weeks, how often have you been bothered by any of the following problems? 1. Little interest or pleasure in doing things: not at all 2. Feeling down, depressed, or hopeless: not at all 3. Trouble falling or staying asleep, or sleeping too much: not at all 4. Feeling tired or having little energy: not at all 5. Poor appetite or overeating: not at all 6. Feeling bad about yourself - or that you are a failure or have let yourself or your family down: not at all 7. Trouble concentrating on things, such as reading the newspaper or watching television: not at all 8. Moving or speaking so slowly that other people could have noticed. Or the opposite - being so fidgety or restless that you have been moving around a lot more than usual: not at all 9. Thoughts that you would be better off or of hurting yourself in some way: not at all Total score: 0 Depression Screening Interpretation: Negative Depression Screening Done: Yes Source: Developed by Drs. Luis Silva, Isabelle Roca, Grabiel Mario and colleagues, with an educational italo from [employer]. Thrive Questionnaire Date Thrive assessed: 05/20/24 I am a: Patient What is your living situation today?: I have a steady place to live Within the past 12 months, did the food you bought not last and you didn't have the money to get more?: Never true Within the past 12 months, did you worry whether your food would run out before you got money to buy more?: Never true Do you have trouble paying for medicines?: No Do you have trouble getting transportation to medical appointments?: No Do you have trouble paying your heating and electricity bill?: No Do you have trouble taking care of your child, family member or friend?: No Do you have trouble with day-to-day activities such as bathing, preparing meals, shopping, managing finances, etc.?: No Are you currently unemployed and looking for a job?: No Are you interested in more education?: No Please select the resources that you would like help with: None Currently or been in a relationship where the following occur: No concerns reported THRIVE Score: 0 AUDIT C Alcohol Use Questionnaire (AUDIT-C) 1. How often do you have a drink containing alcohol?: Never 3. How often do you have six or more drinks on one occasion?: Never Total Score: 0 EMMA-7 AMB Questionnaire EMMA-7 Date EMMA - 7 assessed: 05/20/24 Feeling nervous, anxious, or on edge: 0 = Not at all Not being able to stop or control worryin = Not at all Worrying too much about different things: 0 = Not at all Trouble relaxin = Not at all Being so restless that it is hard to sit still: 0 = Not at all Becoming easily annoyed or irritable: 0 = Not at all Feeling afraid as if something awful might happen: 0 = Not at all Total EMMA-7 score (0-4 normal; 5-9 mild; 10-14 moderate; 15-21 severe): 0 Source: Developed by Isabelle Balderas, Grabiel Mario and colleagues, with an educational italo from [employer]. Physical exam (Primary Care) Vital Signs: Last Vital Signs Pulse 81 05/20/24 13:38 BP 110/72 05/20/24 13:38 Pulse Ox 98 05/20/24 13:38 Oxygen Delivery Method Room Air 05/20/24 13:38 BMI result Body Mass Index 20.7 Tobacco/Smoking Status: Tobacco use Status Tobacco use date assessed 05/20/24 05/20/24 13:42 Patient Tobacco Use Status Former Tobacco user 05/20/24 13:42 Tobacco use type Cigarette 05/20/24 13:42 e-Cigarette/Vaping Use Currently Using 05/20/24 13:42 PHQ-9: PHQ-9 Score PHQ-9: Total score 0 05/20/24 13:42 Depression Screening Interpretation: Negative Thrive Assessment: Date of Thrive Assessment Date Thrive assessed 05/20/24 05/20/24 13:42 Currently or been in a relationship where the following occur: No concerns reported Coding Level of Care Code Est Pt Level 4 (37769) Complex EM visit Add On G2211 Diagnoses MDD (major depressive disorder), severe F32.2 Cocaine use disorder F14.10 Diabetes mellitus type 1, uncontrolled E10.65 Assessment & Plan Assessment & Plan (1) MDD (major depressive disorder), severe: Comment: Continues with depressed mood, somewhat improved. No SI. Code(s): F32.2 - Major depressive disorder, single episode, severe without psychotic features Category: Medical Plan: Patient is requesting a refill of trazodone. The same has been sent. In addition he is taking some medication that is not listed in her medication list. Patient was advised to get the name of the prescription. He has a therapist whom he is seeing regularly. (2) Cocaine use disorder: Code(s): F14.10 - Cocaine abuse, uncomplicated Category: Medical Plan: Last use of cocaine on May 10. Patient is now determined to quit. He lives alone and occasionally with his parents. Not working. (3) Diabetes mellitus type 1, uncontrolled: Comment: since age 10 Code(s): E10.65 - Type 1 diabetes mellitus with hyperglycemia Category: Medical Plan: Poor control of diabetes. Is followed up in endocrinology. Encouraged patient to be compliant with medications. Weakness in the leg due to diabetic neuropathy due to poor control of blood sugars. Plan History of Present Illness The patient is a 34-year-old male presenting with insomnia, seeking management through prescription medication. His insomnia has been treated previously with trazodone, generally taken at a dose of 100 mg with occasional increases to 200 mg based on need. The patient has experienced issues obtaining timely prescription refills. The patient is under the care of a psychiatrist, Ese, for counseling without medication prescriptions. Additionally, he takes another medication starting with S daily at 100 mg, He has neuropathy impacting his legs, which significantly restricts his ability to work. Attempts to obtain SSI have been unsuccessful given the extent of his neuropathy. The patient resides alone but occasionally stays with his mother. Social History - Employment: Unemployed due to neuropathy, has applied for SSI but was denied. - Housing: Lives alone but frequently stays with his mother. - Substance Use: Cessation of substance use as of earlier this year. - Family Status: Sometimes resides with his mother. - Functional Status: Not working due to leg neuropathy. Review of Systems - Neurological: Denies current substance use. Physical Exam General: Appearance normal, both eyes and all related structures Nutritional Appearance: Well nourished Orientation/consciousness: Patient oriented x3 Limitations: Neuropathy in legs Head: Normal to inspection Neck: Normal visual inspection Chest: Normal palpation of entire chest wall Respiratory: Normal respiratory effort Neurology: Patient oriented x3 Results Plan The patient's insomnia will be managed with trazodone, addressing previous pharmacy renewal issues. Neuropathy treatment through counseling will continue, supporting SSI applications. Cessation of substance use remains positive. Ongoing adherence to existing medications is advised. Patient was informed and verbally consented to the use of an ambient scribe for clinic note documentation during this visit. Discussion Notes I discussed trazodone prescription refills with the patient to manage his insomnia efficiently. We reviewed prior communication issues with the pharmacy. I affirmed the patient's cessation of substance use and lifestyle improvements, reinforcing the importance of counseling with Ese. The patient agrees to continue his current medication regimen and pursue SSI for neuropathy-related disability. Patient Instructions - Take trazodone 100 mg at night, as needed for sleep. - Continue counseling with your psychiatrist, Ese. - Follow daily medication regimen as prescribed. - Reapply for Social Security Income as discussed. - Notify us of any further issues with pharmacy prescriptions. Medications: Refilled trazodone 100 mg PO BEDTIME PRN 90 tabs 1RF for insomnia
--- OUTSIDE RECORDS SUMMARY | 2024-05-20 16:05 | XMS_ITS | Clinical Summary ---
Author Organization [employer] [facility] ity Address [address] [place] [address] Care Team Providers Care Sports Journalist Name Role Phone Unavailable Primary Care Provider [...]
== END 2024-05-20 14:09 | disposition home or self-care (01) ==
PROVIDERS: PCP Internal Medicine; Visit Provider Internal Medicine
DX: F32.2 Major depressive disorder, single episode, severe without psychotic features (principal); F14.10 Cocaine abuse, uncomplicated; E10.65 Type 1 diabetes mellitus with hyperglycemia

== ENCOUNTER → 2024-05-20 13:26 | Outpatient (BNVA) | payer OTHER, SELFPAY | PROVIDERS: PCP Internal Medicine; Visit Provider Internal Medicine | DX: F32.2 Major depressive disorder, single episode, severe without psychotic features (principal); E10.65 Type 1 diabetes mellitus with hyperglycemia; F14.10 Cocaine abuse, uncomplicated | CPT/HCPCS: 99212 ==

== ENCOUNTER 2024-05-23 22:52 | Emergency (ER) | payer OTHER, SELFPAY ==
--- NOTE | ~2024-05-23 | US_ITS ---
CLINICAL HISTORY: pain and swelling LEs Venous duplex ultrasound bilateral lower extremity Comparison: None Findings: The visualized deep veins are fully compressible with normal Doppler color flow and spectral tracings. No popliteal cyst. IMPRESSION: Negative for bilateral lower extremity deep vein thrombosis. This document has been electronically signed by: Jaguar Mathew MD on 05/24/2024 01:18:54
[2024-05-23 22:57] VITALS: BP 123/71; PULSE 88; RESP 18; TEMP 36.8; O2SAT 98; BMI 24.1
[2024-05-23 23:32] LABS: Basophils Percent Auto 0.3 % (0-2); Eosinophils Absolute Auto 0.3 X10*3/uL (0.0-0.4); Eosinophils Percent Auto 3.2 % (0-4); Hematocrit 34.8 % (42.0-52.0); Hemoglobin 11.6 g/dl (14.0-18.0); Imm Gran Abs Auto 0.16 X10*3/uL (0.00-0.03); Imm Gran Pct Auto 1.7 % (0.0-0.4); Lymphocytes Absolute Auto 2.3 X10*3/uL (1.2-4.9); Lymphocytes Percent Auto 24.5 % (20-40); MANUAL DIFF FLAG NO; Mean Corpuscular HGB Conc 33.3 g/dl (31.0-36.0); Mean Corpuscular Hemoglobin 28.9 pg (27.0-33.0); Mean Corpuscular Volume 86.8 fL (80.0-98.0); Mean Platelet Volume 10.6 fL (9.4-12.4); Monocytes Absolute Auto 0.8 X10*3/uL (0.1-1.2); Monocytes Percent Auto 8.3 % (2-11); Neutrophils Absolute Auto 5.8 x10*3/uL (2.0-8.3); Platelet Count 308 X10*3/uL (160-400); Red Blood Count 4.01 X10*6/uL (4.60-5.80); Red Cell Distribution Width 12.5 % (11.0-16.0); White Blood Count 9.3 X10*3/uL (4.8-10.8)
[2024-05-23 23:49] LABS: Alanine Aminotransferase 14 U/L (0-40); Albumin Level 3.1 g/dL (3.5-5.0); Alkaline Phosphatase 63 U/L (39-117); Anion Gap 12 (12-20); Aspartate Amino Transferase 18 U/L (5-37); Bilirubin Total 0.2 mg/dL (0.0-1.0); Blood Urea Nitrogen 7 mg/dL (9-16); Calcium 8.9 mg/dL (8.4-10.2); Carbon Dioxide 29 mmol/L (22-29); Chloride 107 mmol/L (96-108); Creatinine Clr Calc Pharmacy 142.8; Estimated Glomerular Filt Rate > 60; Glucose Random 93 mg/dL (60-115); Potassium 3.5 mmol/L (3.3-5.1); Sodium 144 mmol/L (135-145); Total Protein 6.1 g/dL (6.5-8.0)
[2024-05-23 23:53] LABS: B Type Natriuretic Peptide 20 pg/mL (<100)
[2024-05-23 23:56] LABS: Troponin-I High Sensitivity < 2.7 ng/L (<3.5-35.0)
--- NOTE | 2024-05-24 00:13 | ED.EXTPRO ---
HPI - Extremity Problem General Chief complaint: Extremity Problem Stated complaint: bilateral swollen feet Time Seen by Provider: 05/23/24 23:59 Source: patient Mode of arrival: ambulatory Limitations: no limitations History of Present Illness ED Provider: Dr. Mena Gray HPI Narrative: Patient comes to the emergency room complaining of bilateral lower extremity edema. Patient states that his legs have been intermittently swollen over last year. However, over last 2 days, patient complaining of severe pain in both lower extremities. Patient denies prolonged standing, denies any trauma. Patient denies any issues with blood clots to his knowledge. Patient denies chest pain or shortness of breath. Related Data Previous Rx's ?Medication ?Instructions ?Recorded acetaminophen 325 mg tablet 650 mg (2 x 325 mg) PO Q6H PRN 09/07/23 Headache/Pain Mild Scale (1-3) #0 tabs aluminum-magnesium hydroxide 200 30 ml PO Q6H PRN Heartburn/Nausea 09/07/23 mg-200 mg/5 mL oral suspension #0 mL (MAG-AL) dextrose 40 % oral gel (Glutose-15) 15 g PO Q15M PRN Per Hypoglycemia 09/07/23 Standing Ord. #0 grams hydroxyzine HCl 25 mg tablet 25 mg PO Q6H PRN Anxiety #0 tabs 09/07/23 lactulose 20 gram/30 mL oral 30 g (45 mL) PO TID #0 mL 09/07/23 solution magnesium hydroxide 400 mg/5 mL 30 ml PO DAILY PRN Constipation #0 09/07/23 oral suspension (Milk of Magnesia) mL simethicone 80 mg chewable tablet 80 mg PO QIDWMHS PRN gas #60 tabs 09/12/23 (Gas Relief (simethicone)) glucagon 3 mg/actuation nasal 3 mg intranasal ONCE #2 ea 10/06/23 spray (Baqsimi) gabapentin 300 mg capsule 300 mg PO TID 30 days #90 caps 11/06/23 meloxicam 15 mg tablet 15 mg PO DAILY #14 tabs 01/29/24 meloxicam 15 mg tablet 15 mg PO DAILY #30 tabs 04/17/24 FreeStyle Eusebio 3 Plus Sensor #2 ea 05/18/24 (blood-glucose sensor) acetone (urine) test (Ketone Urine #25 ea 05/18/24 Test strips) blood-glucose meter,continuous #2 ea 05/18/24 (FreeStyle Eusebio 3 [place]) glucose 4 gram chewable tablet 16 g (4 x 4 gram) PO Q15M PRN 05/18/24 (Dex4 Glucose) hypoglycemia 30 days #30 tabs insulin degludec 200 unit/mL (3 24 unit (0.12 mL) subcut DAILY 30 05/18/24 mL) subcutaneous pen (Tresiba days #6 mL FlexTouch U-200 insulin) insulin lispro 100 unit/mL See Rx Instructions subcut TID 30 05/18/24 subcutaneous pen days #12 mL pen needle, diabetic 31 gauge x #200 ea 05/18/24/ (Comfort EZ Pen [place]) trazodone 100 mg tablet 100 mg PO BEDTIME PRN for insomnia 05/20/24 #90 tabs furosemide 40 mg tablet (Lasix) 40 mg PO DAILY #5 tabs 05/24/24 Allergies Allergy/AdvReac Type Severity Reaction Status Date / Time No Known Allergies Allergy Verified 05/23/24 22:57 [No Known Allergies*] Review of Systems Review of Systems: Constitutional : No Weight loss, No Fever, No Chills, No Night Sweats, No Fatigue, No Malaise ENT/Mouth : No Hearing loss, No Ear Pain, No Nasal Congestion, No Sinus Pain, No Hoarseness, No sore throat, No Rhinorrhea, No Swallowing Difficulty Eyes: No Eye Pain, No Swelling, No Redness, No Foreign Body, No Discharge, No Vision Changes Cardiovascular : No Chest Pain, No SOB, No Dyspnea on Exertion, No Orthopnea, No Edema, No Palpitations Respiratory : No Cough, No Sputum, No Wheezing, No Smoke Exposure, No Dyspnea Gastrointestinal : No Nausea, No Vomiting, No Diarrhea, No Constipation, No abdominal Pain, No Hematochezia, No Melena Genitourinary : no irregular bleeding, No Dysuria, No Urinary Frequency, No Hematuria, No Urinary Incontinence, No Urgency, No Flank Pain, No Urinary Flow Changes, No Hesitancy Musculoskeletal : Complaining of bilateral lower extremity edema and pain Skin : No Skin Lesions, No rash Neuro : No Weakness, No Numbness, No Paresthesias, No Loss of Consciousness, No Dizziness, No Headache Psych : No Anxiety/Panic, No Depression, No SI/HI/AH/VH, No Social Issues, Heme/Lymph: No Bruising, No Bleeding,No Lymphadenopathy Endocrine : No Polyuria, No Polydipsia, No Temperature Intolerance [facility] Past Medical History Medical History Suicide attempt Nicotine dependence MDD (major depressive disorder), severe Cocaine use disorder Noncompliance Dental decay Diabetes mellitus type 1, uncontrolled Hyperlipidemia LDL goal <100 Surgical History No history of previous surgery Family History Family History Maternal Grandmother Diabetes, type I Social History Social History Household Members: Other Housing: Apartment Housing Other:: rents a room Do you presently have visiting nurse or other home services: No Unable to assess alcohol history related to: Unknown Alcohol intake: never Patient Tobacco Use Status: Former Tobacco user Tobacco use type: Cigarette Cigarettes Per Day: 5 e-Cigarette/Vaping Use: Currently Using Second Hand Smoke Exposure: No Substance Use Type: Marijuana Advance Directives: No Advance Directives Information Provided: Yes Do you have a plan to hurt others: No Plan service: No Current occupational status: employed Cognitive needs: No Hearing needs: No Vision needs: No Physical Exam Vital Signs: Vital Signs: Last Vital Signs Temp 98.3 F 05/23/24 22:57 Pulse 88 05/23/24 22:57 Resp 18 05/23/24 22:57 BP 123/71 05/23/24 22:57 Pulse Ox 98 05/23/24 22:57 O2 Del Method Room Air 05/23/24 22:57 BMI result Body Mass Index 24.1 Const: Other: Appearance: Alert. Oriented X3. No acute distress. Eyes: Pupils equal, round and reactive to light. ENT: Pharynx normal. Neck: Normal inspection. Neck supple. No lymph nodes noted. No crepitus CVS: Normal heart rate and rhythm. Pulses normal. Normal S1 and S2 Respiratory: No respiratory distress. Breath sounds normal. No Wheezing. No rales Abdomen: Soft and nontender. No rigidity. No distention. Skin: Skin warm and dry. Normal skin color. Normal skin turgor. Extremities: bilateral non pitting edema, shiny shins without hair in both lower extremities, good capillary refill, good pedal pulses bilaterally, feet warm to touch Neuro: Oriented X 3. No motor deficit. No sensory deficit. Moving all extremities. No slurred speech. CN 2 through 12 grossly intact Psych: calm, cooperative, normal affect Medical Decision Making Medical Decision Making [facility] Narrative: my interpretation of labs: No significant abnormality in patient's hematology and chemistry, troponin BNP negative ultrasound does not show any acute abnormalities, negative for DVT patient's legs were Abraham wrapped, patient instructed to keep his legs elevated as much as possible especially at bedtime. Given the patient's shiny appearance on his shins and hairless areas, patient likely has probably a combination of vascular /arterial deficiency. DVTs or arterial blood clots not suspected ultrasound negative for DVT as mentioned above, patient is extremities are warm, normal capillary refill, palpable bilateral pedal pulses patient reports more pain with walking, patient likely has claudication Differential Diagnosis Differential Diagnoses: The differential diagnosis associated with the presentation includes ( as above) Lab Data [facility] Lab Attestation statement: I reviewed the patient's lab results. 05/23/24 23:15 05/23/24 23:15 Labs: Lab Results 05/23/24 Range/Units 23:15 WBC 9.3 (4.8-10.8) X10*3/uL RBC 4.01 L D (4.60-5.80) X10*6/uL Hgb 11.6 L D (14.0-18.0) g/dl Hct 34.8 L D (42.0-52.0) % MCV 86.8 (80.0-98.0) fL MCH 28.9 (27.0-33.0) pg MCHC 33.3 (31.0-36.0) g/dl RDW 12.5 (11.0-16.0) % Plt Count 308 D (160-400) X10*3/uL MPV 10.6 (9.4-12.4) fL Immature Gran % (Auto) 1.7 H (0.0-0.4) % Neut % (Auto) 62.0 (45-73) % Lymph % (Auto) 24.5 (20-40) % [place] % (Auto) 8.3 (2-11) % Eos % (Auto) 3.2 (0-4) % Baso % (Auto) 0.3 (0-2) % Lymph # (Auto) 2.3 (1.2-4.9) X10*3/uL [place] # (Auto) 0.8 (0.1-1.2) X10*3/uL Eos # (Auto) 0.3 (0.0-0.4) X10*3/uL Baso # (Auto) 0.0 (0.0-0.2) X10*3/uL Abs Immat Gran (auto) 0.16 H (0.00-0.03) X10*3/uL Absolute Neuts (auto) 5.8 (2.0-8.3) x10*3/uL Absolute Nucleated RBC 0.000 (0.0-0.012) X10*3/uL Nucleated RBC % (auto) 0.0 (0.0-0.2) /100WBC Sodium 144 (135-145) mmol/L Potassium 3.5 (3.3-5.1) mmol/L Chloride 107 (96-108) mmol/L Carbon Dioxide 29 (22-29) mmol/L Anion Gap 12 (12-20) BUN 7 L (9-16) mg/dL Creatinine 0.64 (0.5-1.4) mg/dL Estim Creat Clear Calc 142.8 Estimated GFR > 60 Random Glucose 93 (60-115) mg/dL Calcium 8.9 D (8.4-10.2) mg/dL Total Bilirubin 0.2 (0.0-1.0) mg/dL AST 18 (5-37) U/L ALT 14 (0-40) U/L Alkaline Phosphatase 63 (39-117) U/L Troponin I High Sens < 2.7 (<3.5-35.0) ng/L B-Natriuretic Peptide 20 (<100) pg/mL Total Protein 6.1 L (6.5-8.0) g/dL Albumin 3.1 L (3.5-5.0) g/dL Independent Interpretation I performed an independent interpretation of an: Ultrasound Radiology Impression Discussion of test interpretation with radiology: I have reviewed the radiologist's reading. Radiologist Impression: The visualized deep veins are fully compressible with normal Doppler color flow and spectral tracings. No popliteal cyst. IMPRESSION: Negative for bilateral lower extremity deep vein thrombosis. Discharge Plan Discharge Clinical Impression: Vascular insufficiency of extremity, Lower extremity edema Patient Disposition: Home, Self-Care Additional Instructions: Please follow-up with your primary care physician tomorrow. If you have any worsening or new symptoms, please return to the emergency room or call 911 Prescriptions: New furosemide [Lasix] 40 mg tablet 40 mg PO DAILY Qty: 5 0RF No Action simethicone [Gas Relief (simethicone)] 80 mg tablet,chewable 80 mg PO QIDWMHS PRN (Reason: gas) Qty: 60 0RF meloxicam 15 mg tablet 15 mg PO DAILY Qty: 30 0RF acetaminophen 325 mg Tablet 650 mg PO Q6H PRN (Reason: Headache/Pain Mild Scale (1-3)) Qty: 0 0RF hydroxyzine HCl 25 mg Tablet 25 mg PO Q6H PRN (Reason: Anxiety) Qty: 0 0RF dextrose [Glutose-15] 40 % Gel 15 g PO Q15M PRN (Reason: Per Hypoglycemia Standing Ord.) Qty: 0 0RF Protocol: Glucose Gel Hypoglycemia Standing Order Protocol Text: For patients able to take PO (patient cooperative and able to swallow). Give Glucose Gel 15 gm PO for Blood Glucose (BG) < 70. Repeat BG every 15 min until BG > 70 x 3, if BG still < 70 and/or patient symptomatic repeat glucose gel or rapid acting carbohydrate. Notify MD if BG does not improve with treatment. magnesium hydroxide [Milk of Magnesia] 400 mg/5 mL Suspension 30 ml PO DAILY PRN (Reason: Constipation) Qty: 0 0RF MAG-AL 200-200 mg/5 mL Suspension 30 ml PO Q6H PRN (Reason: Heartburn/Nausea) Qty: 0 0RF lactulose 20 gram/30 mL Solution 30 g PO TID Qty: 0 0RF trazodone 100 mg tablet 100 mg PO BEDTIME PRN (Reason: for insomnia) Qty: 90 1RF insulin degludec [Tresiba FlexTouch U-200] 200 unit/mL (3 mL) insulin pen 24 unit subcut DAILY 30 Days Qty: 6 6RF insulin lispro 100 unit/mL insulin pen See Rx Instructions subcut TID 30 Days Qty: 12 4RF Rx Instructions: subcutaneously 3 times a day with meals 80-150 4 units 151-200 7 units 201-250 10units 250-300 12-14 units over 300 14 units (DME) pen needle, diabetic [Comfort EZ Pen [place]] 31 gauge x 5/16 needle See Rx Instructions .Route Qty: 200 3RF Rx Instructions: 4 per day (DME) Ketone Urine Test Strip See Rx Instructions .ROUTE .MEDSUPPLY Qty: 25 2RF Rx Instructions: tid prn glucose over 250, nausea, vomiting or illness glucose [Dex4 Glucose] 4 gram tablet,chewable 16 g PO Q15M MDD 16 tablets PRN (Reason: hypoglycemia) 30 Days Qty: 30 3RF Rx Instructions: every 15 minutes until symptoms of low blood sugar are controlled (DME) FreeStyle Eusebio 3 [place] Misc See Rx Instructions .ROUTE .MEDSUPPLY Qty: 2 11RF Rx Instructions: for use with sensors change every 15 days (DME) FreeStyle Eusebio 3 Plus Sensor Device See Rx Instructions .ROUTE .MEDSUPPLY Qty: 2 11RF Rx Instructions: As directed every 15 days Baqsimi 3 mg/actuation spray,non-aerosol 3 mg intranasal ONCE Qty: 2 4RF gabapentin 300 mg capsule 300 mg PO TID 30 Days Qty: 90 6RF meloxicam 15 mg tablet 15 mg PO DAILY Qty: 14 0RF Referrals: Justin Moreno MD [Physician] - 05/26/24 Print Language: [place]
[2024-05-24 01:51] VITALS: BP 113/70; PULSE 89; RESP 16; TEMP 36.6; O2SAT 96
== END 2024-05-24 01:53 | disposition home or self-care (01) ==
PROVIDERS: Emergency Provider Emergency Medicine; PCP Internal Medicine
DX: R60.0 Localized edema (principal); I73.9 Peripheral vascular disease, unspecified; E10.9 Type 1 diabetes mellitus without complications
CPT/HCPCS: 36415; 80053; 83880; 84484; 85025; 93970; 99282; 99284

== ENCOUNTER → 2024-05-24 00:11 | Outpatient (BNV) | payer OTHER, SELFPAY | PROVIDERS: Emergency Provider Emergency Medicine; PCP Internal Medicine; Visit Provider Radiology Diagnostic Radiology | DX: M79.604 Pain in right leg (principal); M79.605 Pain in left leg; R22.43 Localized swelling, mass and lump, lower limb, bilateral | CPT/HCPCS: 93970 ==

== ENCOUNTER 2024-06-01 10:22 | Outpatient (AMB) | payer OTHER, SELFPAY ==
--- NOTE | 2024-06-01 10:28 | MHC.OFFVIS ---
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 Pain is greatest in the morning. 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 He states he presented there for worsening swelling as well as severe pain bilaterally. He states this has been going on for over a year now but has been gotten progressively worse. An ultrasound was performed and was negative for DVT. He was trialed on 5 days of Lasix, which he states he is not sure if it did not do anything. He states the swelling is better but continues with bilateral lower extremity pain. He does smoke approximately 2 to 3 cigarettes a day and has been a type 1 diabetic since he was 10 years old. He states his blood sugars have been increased over the last week or so, but states he has been fighting a stomach bug. He states his legs do get tired. Patient denies any previous venous surgery or injections. Patient denies any history of DVT/ PE. Patient denies any history of phlebitis. Trial of compression includes - Lasix They now present for vascular evaluation regarding their varicose veins. [facility] Medical History Suicide attempt Nicotine dependence MDD (major depressive disorder), severe Cocaine use disorder Noncompliance Dental decay Diabetes mellitus type 1, uncontrolled Hyperlipidemia LDL goal <100 Surgical History No history of previous surgery Family History Maternal Grandmother Diabetes, type I Social History Household Members: Other Housing: Apartment Housing Other:: rents a room Do you presently have visiting nurse or other home services: No Unable to assess alcohol history related to: Unknown Alcohol intake: never Patient Tobacco Use Status: Former Tobacco user Tobacco use type: Cigarette Cigarettes Per Day: 5 e-Cigarette/Vaping Use: Currently Using Second Hand Smoke Exposure: No Substance Use Type: Marijuana service: No Current occupational status: employed Cognitive needs: No Hearing needs: No Vision needs: No Review of Systems Const Reports as per HPI and Denies weakness ENT Reports Normal hearing present and Denies dizziness Card Reports as per HPI, Denies chest pain, Denies chest pain at rest, Denies chest pain with activity, Denies dyspnea and Denies dyspnea on exertion Resp Reports as per HPI, Denies cough, Denies dyspnea and Denies dyspnea on exertion GI Reports as per HPI, Denies abdominal pain, Denies nausea and Denies vomiting Musc Denies numbness Skin/Breast Reports as per HPI, Denies erythema and Denies wounds Neuro Reports Normal hearing present, Denies dizziness, Denies numbness, Denies Sensory deficit (Neuro) and Denies weakness Psych Reports no additional complaints Endo Reports no additional complaints Physical Exam Neuro Cranial nerves: Yes Normal hearing present Sensory Exam: No Sensory deficit (Neuro) Extrem Other: Bilateral lower extremities: Trace peripheral edema noted. No discoloration noted. No varicosities or tortuosities noted. CEAP: C - 3 E - primary A - superficial P - reflux Assessment & Plan Assessment & Plan (1) Varicose veins of both lower extremities with inflammation: Code(s): I83.11 - Varicose veins of right lower extremity with inflammation; I83.12 - Varicose veins of left lower extremity with inflammation Category: Medical Plan: Keira is presenting today as a follow up to an ER visit for bilateral lower extremity pain and swelling. He states the swelling has gone down significantly but continues with pain. In short, the patient has evidence of venous insufficiency. I have discussed the pathophysiology with the patient. In addition I have provided informational material regarding venous disease to the patient. We have discussed conservative measures including compression, elevation, and exercise. I have also provided a handout regarding appropriate use of compression stockings and where to purchase good compression stockings as well. I have taken the liberty of ordering venous insufficiency testing with the patient. They will follow up with me after testing. The patient had an opportunity to ask questions regarding the treatment plan. All questions were answered. Imaging studies, laboratory studies and physical exam results were discussed and reviewed in detail. No major barriers to understanding were identified. The patient expressed understanding and agreement with the above treatment plan. The patient is aware they should contact our office by phone for worsening of the current condition or the appearance of new symptoms. Thank you for allowing me to participate in the vascular care of this patient. If you have any questions or concerns regarding the treatment for the above condition please do not hesitate to contact me. The office telephone contact is [phone]. This note is constructed using voice recognition software. While every effort has been made to ensure accuracy, weekday babysitter errors may have been included. Thank you for allowing me to participate in the care of your patient. Yours sincerely, MARINA Stark Orders: Orders US venous duplex LE BI 1 Week I83.11 - Varicose veins of right lower extremity with inflammation, I83.12 - Varicose veins of left lower extremity with inflammation Coding Level of Care Code New Pt Level 4 (61191) Diagnoses Varicose veins of both lower extremities with inflammation I83.11; I83.12
--- OUTSIDE RECORDS SUMMARY | 2024-06-01 12:20 | XMS_ITS | Clinical Summary ---
Author Organization [facility] [employer] [facility] ity Address [address] [place] [address] Care Team Providers Care Arc Welding Machine Operator Name Role Phone Unavailable Primary Care Provider [...]
== END 2024-06-01 10:50 | disposition home or self-care (01) ==
LOC: HO.HVS 10:22
PROVIDERS: PCP Internal Medicine; Visit Provider Physician Assistant Surgical
DX: I83.11 Varicose veins of right lower extremity with inflammation (principal); I83.12 Varicose veins of left lower extremity with inflammation
CPT/HCPCS: 99204

== ENCOUNTER → 2024-06-01 10:22 | Outpatient (BNVA) | payer OTHER, SELFPAY | PROVIDERS: PCP Internal Medicine; Visit Provider Physician Assistant Surgical | DX: I83.11 Varicose veins of right lower extremity with inflammation (principal); I83.12 Varicose veins of left lower extremity with inflammation | CPT/HCPCS: 99202 ==

== ENCOUNTER 2024-06-11 12:35 | Outpatient (AMB) | payer OTHER, SELFPAY ==
--- NOTE | 2024-06-11 12:37 | A.OFFVIS_ITS ---
Vital Signs 06/11/24 12:49 Height 5 ft 6 in Weight 129 lb 6.581 oz BMI 20.9 BP 136/78 Blood Pressure Location Rt brachial Position Sitting Pulse 78 Pulse Source Pulse Oximeter Pulse Oximetry (%) 98 Oxygen Delivery Method Room Air Intake Visit Reasons: Follow up DM Intake Note: Patient presents today for a follow-up on Type 1 Diabetes Mellitus: Last Diabetic eye exam was on: DUE Last Podiatry exam was on: Patient does not see a Senior Hris Analyst Most recent HbA1c: 9.3%, 05/18/2024 Random Glucose- mg/dL, Today Re-check Random Glucose- mg/dL, Today Primary Montessori Teacher Required: No Accompanied by: Self / Same As Patient Allergies No Known Allergies [No Known Allergies*] Allergy (Verified 06/01/24 10:29) HPI Comments Details: Patient is 34 yo male with DM type 1 diagnosed at age 10 who presents for management of diabetes. He was last seen by myself 05/18/24. A1C 05/18/24 9.3% A1c 01/29/24 9.1%, 8.9% on 10/06/23 Hgb A1C 9.3% Diabetes medications: Tresiba 24 units Lispro 6-12 units for lunch, supper and later evening snack if his sugars are over 200 4 units if he eats breakfast he will take 8-10 He has a scale which is not accurate in EHR. He keeps this on his refrigerator and will bring in next vii. He does endorse that he misses some doses of his insulin. He has had a severe hypoglycemic episode after he tried to commit suicide by insulin injection. He is now seeing the therapist every week and denies current suicidal ideation. He denies alcohol use. Uses cannibis. No street drugs. Has neuropathy was advised to restart gabapentin by his PCP Symptoms: Cramping in feet, numbness which he feels is better when his sugars are in normal range Hypoglycemia:0cc Eye exam: yrs ago needs to make appt needs new provider No Nephropathy: 10/14/2023 albumin less than 5.0 09/07/2023 eGFR>60 Exercise: little He smokes 3 cigarettes per day and does vape does not carry sugar source despite recommendation No recent known DKA but has had in the past He was on an insulin pump in his teen years. He was unable to tolerate atorvastin side effect: diarrhea [facility] Medical History Suicide attempt Nicotine dependence MDD (major depressive disorder), severe Cocaine use disorder Noncompliance Dental decay Diabetes mellitus type 1, uncontrolled Hyperlipidemia LDL goal <100 Surgical History No history of previous surgery Family History Maternal Grandmother Diabetes, type I Social History Household Members: Other Housing: Apartment Housing Other:: rents a room Do you presently have visiting nurse or other home services: No Unable to assess alcohol history related to: Unknown Alcohol intake: never Patient Tobacco Use Status: Former Tobacco user Tobacco use type: Cigarette Cigarettes Per Day: 5 e-Cigarette/Vaping Use: Currently Using Second Hand Smoke Exposure: No Substance Use Type: Marijuana service: No Current occupational status: employed Cognitive needs: No Hearing needs: No Vision needs: No Physical Exam Const Other: Absence of Cushingoid features. Absence of acromegalic features. Maintains good eye contact. Engage in conversation. Heart S1 S2, Reg R/R. No M/R G. Skin exam reveals absence of vitiligo or acanthosis nigricans. No edema. Office Procedures Glucose Monitoring Details Details: see [facility] [address] - Glucose monitoring, continuous-physician I&R Procedure code (CPT) selection complete Assessment & Plan Assessment & Plan (1) Diabetes mellitus type 1, uncontrolled: Comment: since age 10 Code(s): E10.65 - Type 1 diabetes mellitus with hyperglycemia Category: Medical Plan: Type 1 diabetic with neuropathy whose care is complicated by depression. He had a recent prior suicide attempt by insulin injection. He is seeing his counselor weekly feels he is doing okay with his depression. As he does not have his scale with him today, I have asked him to increase his scale by 1 unit for each range of glucose readings. He will bring in the scale in 2 weeks. Continue same dose of Tresiba. Limited on increasing the Tresiba secondary to nighttime lows The patient had an opportunity to ask questions regarding treatment plan. The patient expressed understanding and agreement with the above treatment plan. The patient is aware they should contact our office by phone for worsening glucose readings or for any low blood sugars which may warrant a change in diabetes medication. Compliance is encouraged with medications and any followup testing/consults which may have been ordered. Orders: Orders AMB Glucose Monitoring Today E10.65 - Type 1 diabetes mellitus with hyperglycemia Patient Instructions: The patient was counseled to achieve a target A1C of 7% (154 avg). Fasting blood sugars should be 90-130 in the morning and less than 180 two hours after meals. Reviewed the relationship between poor diabetic control and the development of complications. Carry a source of sugar Coding Level of Care Code Est Pt Level 3 (98359) Complex EM visit Add On G2211 Diagnoses Diabetes mellitus type 1, uncontrolled E10.65 CPT Codes Details - CPT: 67351 - Glucose monitoring, continuous-physician I&R ([id number]) Time Spent (min) 20 Comment Time spent reviewing labs/provider notes, face to face, chart doc
[2024-06-11 12:49] VITALS: BP 136/78; PULSE 78; O2SAT 98; BMI 20.9
[2024-06-11 12:57] LABS: Glucose, Whole Blood 232 mg/dL (60-115)
--- OUTSIDE RECORDS SUMMARY | 2024-06-11 14:59 | XMS_ITS | Clinical Summary ---
Author Organization [facility] ity Address [address] [place] [address] Care Team Providers Care Weather Stripper Name Role Phone Unavailable Primary Care Provider [...]
== END 2024-06-11 13:06 | disposition home or self-care (01) ==
LOC: HO.ENCR 12:36
PROVIDERS: PCP Internal Medicine; Visit Provider Nurse Practitioner Adult Health
DX: E10.65 Type 1 diabetes mellitus with hyperglycemia (principal)
CPT/HCPCS: 95251; 99213; G2211

== ENCOUNTER → 2024-06-11 12:35 | Outpatient (BNVA) | payer OTHER, SELFPAY | PROVIDERS: PCP Internal Medicine; Visit Provider Nurse Practitioner Adult Health | DX: E10.65 Type 1 diabetes mellitus with hyperglycemia (principal) | CPT/HCPCS: 82947; 99212 ==

== ENCOUNTER 2024-06-23 12:56 | Outpatient (REF) | payer OTHER, SELFPAY ==
--- NOTE | ~2024-06-23 | US_ITS ---
EXAMINATION: US LOWER EXTREMITY VENOUS (REFLUX EXAM), BILATERAL CLINICAL INFORMATION: Varices. COMPARISON: None. TECHNIQUE: Color flow triplex imaging and compression Doppler was performed to evaluate both the deep and the superficial systems bilaterally. To evaluate the superficial system, the examination was performed in the upright position. Color-flow Doppler ultrasound and compression ultrasound were utilized. In addition, maneuvers were utilized to demonstrate reflux. FINDINGS: 1. DEEP VENOUS ULTRASOUND OF THE RIGHT LOWER EXTREMITY: Common Femoral Vein: Compressible, normal respiratory variation and augmented flow. Femoral Vein: Compressible, normal color flow and augmentation. Popliteal Vein: Compressible, normal augmentation. Deep Reflux: There is no evidence of reflux in the deep system in either the common femoral vein, superficial femoral or the popliteal vein. There is no evidence of a Plasencia's cyst. 2. SUPERFICIAL ULTRASOUND WITH DOPPLER OF RIGHT LOWER EXTREMITY: GREAT SAPHENOUS VEIN: Saphenofemoral Junction: 0.6 cm; Reflux: 0 ms Proximal Thigh: 0.4 cm; Reflux: 0 ms Mid Thigh: 0.3 cm; Reflux: 0 ms Distal Thigh: 0.3 cm; Reflux: 0 ms At Knee: 0.3 cm; Reflux: 0 ms Proximal Calf: 0.2 cm; Reflux: 0 ms Mid Calf: 0.2 cm; Reflux: 0 ms Distal Calf: 0.3 cm; Reflux: 0 ms DUPLICATED MEDIAL GREAT SAPHENOUS VEIN: Diameter: None imaged Reflux: NA DUPLICATED LATERAL GREAT SAPHENOUS VEIN: Diameter: 0.3 cm. Reflux: NA SMALL SAPHENOUS VEIN: Saphenopopliteal Junction: 0.2 cm; Reflux: 0 ms Proximal: 0.1 cm; Reflux: 0 ms Distal: 0.2 cm; Reflux: 0 ms VEIN OF GIACOMINI: Size: NA Reflux: NA PERFORATORS: Location: Mid and distal calf. Size: 0.3 cm. Reflux: NA VARICOSITIES: Location: None imaged. Size: NA Reflux: NA 3. DEEP VENOUS ULTRASOUND OF THE LEFT LOWER EXTREMITY: Common Femoral Vein: Compressible, normal respiratory variation and augmented flow. Femoral Vein: Compressible, normal color flow and augmentation. Popliteal Vein: Compressible, normal augmentation. Deep Reflux: There is no evidence of reflux in the deep system in either the common femoral vein, superficial femoral or the popliteal vein. There is no evidence of a Plasencia's cyst. 4. SUPERFICIAL ULTRASOUND WITH DOPPLER OF LEFT LOWER EXTREMITY: GREAT SAPHENOUS VEIN: Saphenofemoral Junction: 0.7 cm; Reflux: 0 ms Proximal Thigh: 0.3 cm; Reflux: 0 ms Mid Thigh: 0.2 cm; Reflux: 0 ms Distal Thigh: 0.3 cm; Reflux: 0 ms At Knee: 0.2 cm; Reflux: 0 ms Proximal Calf: 0.2 cm; Reflux: 0 ms Mid Calf: 0.2 cm; Reflux: 0 ms Distal Calf: 0.2 cm; Reflux: 2464 ms DUPLICATED MEDIAL GREAT SAPHENOUS VEIN: Diameter: None imaged Reflux: NA DUPLICATED LATERAL GREAT SAPHENOUS VEIN: Diameter: 0.2 cm. Reflux: NA SMALL SAPHENOUS VEIN: Saphenopopliteal Junction: 0.3 cm; Reflux: 0 ms Proximal: 0.1 cm; Reflux: 0 ms Distal: 0.2 cm; Reflux: 0 ms VEIN OF GIACOMINI: Size: NA Reflux: NA PERFORATORS: Location: Mid and distal calf. Size: 0.2 cm. Reflux: NA VARICOSITIES: Location: Distal thigh. Size: 0.3 cm. Reflux: NA US/US venous insuf bilat IMPRESSION: Right: No venous insufficiency. Perforators without reflux. Left: Venous insufficiency, great saphenous vein at the ankle level. Varices and perforators without reflux. Electronically signed by: Howard Webb MD 06/24/2024 10:47 AM EDT
--- OUTSIDE RECORDS SUMMARY | 2024-06-23 15:32 | XMS_ITS | Clinical Summary ---
Author Organization [facility] [employer] [facility] ity Address [address] [place] [address] Care Team Providers Care Salon Leader Name Role Phone Unavailable Primary Care Provider [...]
== END 2024-06-23 12:57 | disposition home or self-care (01) ==
LOC: HO.US 12:56
PROVIDERS: PCP Internal Medicine; Visit Provider Physician Assistant Surgical
DX: I83.11 Varicose veins of right lower extremity with inflammation (principal); I83.12 Varicose veins of left lower extremity with inflammation
CPT/HCPCS: 93970

== ENCOUNTER → 2024-06-23 12:58 | Outpatient (BNV) | payer OTHER, SELFPAY | PROVIDERS: PCP Internal Medicine; Visit Provider Radiology Diagnostic Radiology | DX: I87.2 Venous insufficiency (chronic) (peripheral) (principal) | CPT/HCPCS: 93970 ==

== ENCOUNTER 2024-06-25 14:22 | Outpatient (AMB) | payer OTHER, SELFPAY ==
--- NOTE | 2024-06-25 14:28 | A.OFFVIS_ITS ---
Vital Signs 06/25/24 14:29 Height 5 ft 6 in Weight 130 lb 1.164 oz BMI 21.0 BP 122/68 Blood Pressure Location Rt brachial Position Sitting Pulse 99 Pulse Source Pulse Oximeter Pulse Oximetry (%) 100 Oxygen Delivery Method Room Air Intake Visit Reasons: DM Intake Note: Patient presents today for a follow-up on Type 1 Diabetes Mellitus: Last Diabetic eye exam was on: DUE Last Podiatry exam was on: Patient does not see a Immigration Specialist Most recent HbA1c: 9.3%, 05/18/2024 Random Glucose- 74 mg/dL, Today, recheck 78 mg/dL, 66 mg/dL. Patient declined to be treated and left. Health Claims Examiner Required: No Accompanied by: Self / Same As Patient Allergies No Known Allergies [No Known Allergies*] Allergy (Verified 06/28/24 13:36) HPI Comments Details: Patient is 34 yo male with DM type 1 diagnosed at age 10 who presents for management of diabetes. He was last seen by myself 06/11/24. A1C 05/18/24 9.3% A1c 01/29/24 9.1%, 8.9% on 10/06/23 Hgb A1C 9.3% In the office today he was treated with 15 car grams for low sugar but refused to stay for additional treatment. Diabetes medications: Tresiba 24 units Lispro 6-12 units for lunch, supper and later evening snack if his sugars are over 200 4 units if he eats breakfast he will take 8-10 He has a scale which is not accurate in EHR. He keeps this on his refrigerator and has been t asked to bring this in to his next visit. He was asked to increase his scale by one unit at his last visit. He is non compliant with missing many doses of insulin. He has had a severe hypoglycemic episode after he tried to commit suicide by insulin injection. He is now seeing the therapist every week and denies current suicidal ideation. HE sees the psychiatrist regularly. He denies alcohol use. Uses cannibis. No street drugs. Has neuropathy was advised to restart gabapentin by his PCP Symptoms: Cramping in feet, numbness which he feels is better when his sugars are in normal range Hypoglycemia:0cc Eye exam: yrs ago needs to make appt needs new provider No Nephropathy: 10/14/2023 albumin less than 5.0 09/07/2023 eGFR>60 Exercise: little He smokes 3 cigarettes per day and does vape does not carry sugar source despite recommendation No recent known DKA but has had in the past He was on an insulin pump in his teen years. He was unable to tolerate atorvastin side effect: diarrhea Dexcom average glucose: 211 14 day continuous glucose monitor report reviewed Glucose Managment indicator 8.4 % Days with CGM data [ ] % TIme in ranges: Thirty-four % very high (above 250) 23 % high ?(181-250) 39 % in range ?(70-180] 4 % low (69-55) 0 % ?very low (below 54) 47.4 glucose variability Interpretation [readings consistently higher than target ] [facility] Medical History Suicide attempt Nicotine dependence MDD (major depressive disorder), severe Cocaine use disorder Noncompliance Dental decay Diabetes mellitus type 1, uncontrolled Hyperlipidemia LDL goal <100 Surgical History No history of previous surgery Family History Maternal Grandmother Diabetes, type I Social History Household Members: Family Housing: House Housing Other:: rents a room Do you presently have visiting nurse or other home services: No Unable to assess alcohol history related to: Unknown Alcohol intake: never Patient Tobacco Use Status: Former Tobacco user Tobacco use type: Cigarette Cigarettes Per Day: 5 Smoked in Last 30 Days: Yes e-Cigarette/Vaping Use: Currently Using Patient Interested in Nicotine Replacement: Yes Patient Given Instructions on How to Stop Smoking: No Second Hand Smoke Exposure: No Use of substances other than those prescribed or required for medical reasons: Yes Substance Use Type: Crack/Cocaine and Marijuana Substance Use Frequency: Daily Last Used Substance: Days (ago) Last Used Substance Other:: COCAINE ON OCCASION. MARIJUANA DAILY. Currently Displaying Signs/Symptoms of Drug Intoxication Withdrawal: No Any prior treatment program specific to substance use: No Have you been hit, kicked, punched, or otherwise hurt by someone within the past year? If so, by whom?: No Do you feel safe in your current relationship?: No Current Relationship Is there a partner from a previous relationship who is making you feel unsafe now?: No Are you made to feel afraid or neglected: No Advance Directives: No Advance Directives Information Provided: No Do you have thoughts of harming others: None Do you have a plan to hurt others: No Plan Recently lost weight without trying: Yes How much weight loss: Unsure Eating poorly because of decreased appetite: Yes Nutrition screen score: 5 Nutrition Risks: No Nutritional Risk Poor oral hygiene: No service: No Current occupational status: employed Cognitive needs: No Hearing needs: No Vision needs: No Physical Exam Vital Signs: Last Vital Signs Pulse 99 06/25/24 14:29 BP 122/68 06/25/24 14:29 Pulse Ox 100 06/25/24 14:29 Oxygen Delivery Method Room Air 06/25/24 14:29 BMI result Body Mass Index 21.0 Const Other: Absence of Cushingoid features. Absence of acromegalic features. Neck exam reveals nl size thyroid about 15 gms. No thyroid nodules palpable. Heart S1 S2, Reg R/R. No M/R G. Skin exam reveals absence of vitiligo or acanthosis nigricans. Results Reviewed Results Reviewed: Laboratory Last Values Glucose (Clinic) 66 mg/dL (60-115) 06/25/24 15:19 Assessment & Plan Assessment & Plan (1) Diabetes mellitus type 1, uncontrolled: Comment: since age 10 Code(s): E10.65 - Type 1 diabetes mellitus with hyperglycemia Category: Medical Plan: 34-year-old type 1 diabetic with neuropathy, hypoglycemia awareness and noncompliance with consistent insulin dosing. Today he left the clinic when he was having a low sugar but felt in asymptomatic. This was against medical advice. He is not driving a car and has a ride home. He was asked to consistently take his insulin and to continue weekly therapy visits. He denies suicidal ideation. He does not feel the sertraline 100 mg is working well for him and he was asked to discuss this with the psychiatrist. The patient had an opportunity to ask questions regarding treatment plan. The patient expressed understanding and agreement with the above treatment plan. The patient is aware they should contact our office by phone for worsening gl ucose readings or for any low blood sugars which may warrant a change in diabetes medication. Compliance is encouraged with medications and any followup testing/consults which may have been ordered. Medications: Refilled FreeStyle Eusebio 3 Plus Sensor (blood-glucose sensor) As directed every 15 days 2 ea 11RF NS E10.65 - Type 1 diabetes mellitus with hyperglycemia On Hold blood-glucose,oyster floater,cont (FreeStyle Eusebio 3 [place]) Hold Comment: Doctor's Order for use with sensors change every 15 days 2 ea 11RF Patient Instructions: The patient was counseled to achieve a target A1C of 7% (154 avg). Fasting blood sugars should be 90-130 in the morning and less than 180 two hours after meals. Reviewed the relationship between poor diabetic control and the development of c omplications. Take 15 carb carbohydrate grams to treat a low sugar (3-4 glucose tablets, half a glass of juice or 15 carbohydrate grams of soft candy such as gummie snacks). Recheck your sugar in 15 minutes and re-treat again with 15 carbohydrate grams if low or still with symptoms. Do not drive a car or operate machinery if you do not know what your blood sugar is, if it is low or in excess of 300. Coding Level of Care Code Est Pt Level 4 (72823) Complex EM visit Add On G2211 Diagnoses Diabetes mellitus type 1, uncontrolled E10.65 Time Spent (min) 30 Comment Time spent reviewing labs/provider notes, face to face, chart doc
[2024-06-25 14:29] VITALS: BP 122/68; PULSE 99; O2SAT 100; BMI 21.0
[2024-06-25 14:37] LABS: Glucose, Whole Blood 74 mg/dL (60-115)
[2024-06-25 15:04] LABS: Glucose, Whole Blood 78 mg/dL (60-115)
--- OUTSIDE RECORDS SUMMARY | 2024-06-25 16:00 | XMS_ITS | Clinical Summary ---
Author Organization [facility] ity Address [address] [place] [address] Care Team Providers Care Front Clerk Name Role Phone Unavailable Primary Care Provider [...]
[2024-06-28 08:58] LABS: Glucose, Whole Blood 66 mg/dL (60-115)
== END 2024-06-25 15:02 | disposition home or self-care (01) ==
LOC: HO.ENCR 14:22
PROVIDERS: PCP Internal Medicine; Visit Provider Nurse Practitioner Adult Health
DX: E10.65 Type 1 diabetes mellitus with hyperglycemia (principal)
CPT/HCPCS: 99214; G2211

== ENCOUNTER → 2024-06-25 14:22 | Outpatient (BNVA) | payer OTHER, SELFPAY | PROVIDERS: PCP Internal Medicine; Visit Provider Nurse Practitioner Adult Health | DX: E10.65 Type 1 diabetes mellitus with hyperglycemia (principal) | CPT/HCPCS: 82947; 99212 ==

== ENCOUNTER 2024-06-28 13:23 | Inpatient (IN) | payer OTHER, SELFPAY ==
[2024-06-28 13:28] VITALS: BP 128/92; PULSE 84
[2024-06-28 13:29] VITALS: BP 136/96; PULSE 92; RESP 16; TEMP 36.5; O2SAT 99; BMI 21.0
--- NOTE | 2024-06-28 13:45 | PC.NURSE ---
Pt states he told staff at the facility where he was staying that he wanted to take some sleeping pills to sleep for a while and if I wake up , I wake up. If I don't, I don't .; pt denies HI or substance abuse today; cooperative with policy change clerk except nose piercings, which he says don't come out; hand etcher helper made aware
--- NOTE | 2024-06-28 13:55 | ED.PSYCH ---
HPI - Psych General Chief Complaint: Psychiatric Symptoms Stated Complaint: PSYCH EVAL,CALM/COOP PER EMS Time Seen by Provider: 06/28/24 13:45 Source: patient, EMS, RN notes reviewed and old records reviewed Mode of arrival: EMS Limitations: no limitations History of Present Illness ED Provider: Octavia HPI Narrative: Patient is a 34-year-old male with history of polysubstance use, MDD, T1DM presenting to the emergency department after making suicidal statements. Patient denies depression, anxiety, states that he would not actually harm himself but admits to making SI statements. Denies homicidal ideation. Denies auditory or visual hallucinations. Denies alcohol or drug use. Denies any current physical complaints. States that he is living with his parents and feels safe there. MD complaint: suicidal ideation Related Data Home Medications ?Medication ?Instructions ?Recorded ?Confirmed sertraline 100 mg tablet 100 mg PO QAM 06/28/24 06/28/24 Previous Rx's ?Medication ?Instructions ?Recorded insulin degludec 200 unit/mL (3 24 unit (0.12 mL) subcut DAILY 30 05/18/24 mL) subcutaneous pen (Tresiba days #6 mL FlexTouch U-200 insulin) insulin lispro 100 unit/mL See Rx Instructions subcut TID 30 05/18/24 subcutaneous pen days #12 mL trazodone 100 mg tablet 100 mg PO BEDTIME PRN for insomnia 05/20/24 #90 tabs Allergies Allergy/AdvReac Type Severity Reaction Status Date / Time No Known Allergies Allergy Verified 06/28/24 13:36 [No Known Allergies*] Review of Systems Review of Systems: As per HPI Yes all other systems are reviewed and are negative Constitutional: Constitutional: Reports as per HPI [facility] Past Medical History Medical History Suicide attempt Nicotine dependence MDD (major depressive disorder), severe Cocaine use disorder Noncompliance Dental decay Diabetes mellitus type 1, uncontrolled Hyperlipidemia LDL goal <100 Surgical History No history of previous surgery Family History Family History Maternal Grandmother Diabetes, type I Social History Social History Household Members: Other Housing: Apartment Housing Other:: rents a room Do you presently have visiting nurse or other home services: No Unable to assess alcohol history related to: Unknown Alcohol intake: never Patient Tobacco Use Status: Former Tobacco user Tobacco use type: Cigarette Cigarettes Per Day: 5 Smoked in Last 30 Days: Yes e-Cigarette/Vaping Use: Currently Using Second Hand Smoke Exposure: No Use of substances other than those prescribed or required for medical reasons: Yes Substance Use Type: Marijuana and Prescription Drugs Substance Use Frequency: Chronic Longstanding Last Used Substance: Just Prior to Admission Any prior treatment program specific to substance use: Yes Advance Directives: No Advance Directives Information Provided: No Do you have a plan to hurt others: No Plan service: No Current occupational status: employed Cognitive needs: No Hearing needs: No Vision needs: No Physical Exam Vital Signs: Vital Signs: Last Vital Signs Temp 98.5 F 06/29/24 15:46 Pulse 92 06/29/24 15:46 Resp 16 06/29/24 15:46 BP 132/92 H 06/29/24 15:46 Pulse Ox 99 06/29/24 15:46 O2 Del Method Room Air 06/29/24 15:46 BMI result Body Mass Index 21.0 Vital signs have been reviewed and appear to be correct. Blood pressure normal. Heart rate normal. Respiratory rate normal. Temperature normal. Oxygen saturation normal. Const: General: cooperative, healthy appearing and no acute distress Orientation/consciousness: oriented to person, oriented to place, oriented to time and patient oriented x3 Limitations: no limitations HEENT: Head: Yes normocephalic and Yes atraumatic Ears: external ears normal General nose exam: Normal external nose present Face and sinus: Yes face symmetric Mouth: oropharynx normal and moist mucous membranes Throat: Yes uvula midline Eyes: Pupils: Equal, round and reactive pupils present Neck: Neck: Yes normal visual inspection and Yes supple Resp: Effort & Inspection: normal respiratory effort and able to speak in complete sentences Auscultation: clear to auscultation bilaterally Cardio: Rate: regular rate Rhythm: regular rhythm Heart sounds: S1 normal heart sound present and S2 normal heart sound present GI: Palpation (GI): Soft to palpation and nontender Auscultation: normoactive bowel sounds : General: Yes no CVA tenderness Back/Spine/Pelvis: Back: no CVA tenderness Skin: General skin exam: elasticity normal and turgor normal Neuro: General: oriented to person, oriented to place, oriented to time, patient oriented x3, moves all extremities, no focal motor deficits and CN's II-XI intact bilaterally Cranial nerves: Yes Equal, round and reactive pupils present Cognition (Neuro): normal cognition Extrem: General: Yes full ROM, Yes no pedal edema and Yes no calf tenderness Psych: Appearance: grossly normal Mental Status: mental status grossly normal Affect: normal affect Attitude: Guarded attititude/behavior present Thought process: Normal thought process present Thought content: suicidality, no homicidality, no hallucinations and No Depressive thoughts present Insight: Limited insight present (Psych) Judgement: Limited judgement present (Psych) Course Course Course Narrative: Time: 08:53 Date: 06/29/24 Provider: Giselle Maria DO Patient in physician observation for psychiatric evaluation.? No acute events reported overnight. No current complaints. VS stable.? Patient is in bed search status. Will continue to monitor. Reevaluation(s) Reevaluation #1: Time: 16:49 Date: 06/29/24 Provider: Giselle Maria DO Physician observation ended at 449pm. Patient to be admitted as inpatient to psychiatry Medications Administered Generic Name Dose Route Start Last Admin Trade Name Freq PRN Reason Stop Dose Admin Insulin Human Lispro 0 unit 06/28/24 21:00 06/29/24 16:13 Insulin Lispro 100 Unit/Ml 3 Ml Vial SUBCUT Not Given QIDACHS AMISHA Protocol Medical Decision Making Medical Decision Making [facility] Narrative: Patient is a 34-year-old male with history of polysubstance use, MDD, T1DM presenting to the emergency department after making suicidal statements. On exam patient is awake, A+Ox3, VS WNL, afebrile, normal neurological exam without focal deficits, physical exam findings as above. Given reported symptoms and physical exam findings, initial differential includes but is not limited to anxiety, depression, suicidal ideation. Labs notable for hyperglycemia without anion gap. Urine drug screen positive for THC and cocaine, ethanol negative. Viral panel negative. Patient medically cleared and placed on physician observation pending care team evaluation at this time (1725). Per Chata from CARE team, patient will be admitted on a section 12. Differential Diagnosis Differential Diagnoses: The differential diagnosis associated with the presentation includes As per [facility] Admission/Observation Consideration of admission/observation: Escalation of care including admission/observation considered Consult Healthcare Provider Management of the patient was discussed with: Behavioral Health Provider Lab Data [facility] Lab Attestation statement: I reviewed the patient's lab results. As per [facility] 06/28/24 14:08 06/28/24 14:08 Labs: Lab Results 06/28/24 06/28/24 06/28/24 Range/Units 14:08 14:09 15:49 WBC 8.2 (4.8-10.8) X10*3/uL RBC 5.02 D (4.60-5.80) X10*6/uL Hgb 14.0 D (14.0-18.0) g/dl Hct 43.6 D (42.0-52.0) % MCV 86.9 (80.0-98.0) fL MCH 27.9 (27.0-33.0) pg MCHC 32.1 (31.0-36.0) g/dl RDW 13.2 (11.0-16.0) % Plt Count 193 D (160-400) X10*3/uL MPV 12.0 (9.4-12.4) fL Immature Gran % (Auto) 0.5 H (0.0-0.4) % Neut % (Auto) 71.1 (45-73) % Lymph % (Auto) 18.4 L (20-40) % [place] % (Auto) 7.3 (2-11) % Eos % (Auto) 2.2 (0-4) % Baso % (Auto) 0.5 (0-2) % Lymph # (Auto) 1.5 (1.2-4.9) X10*3/uL [place] # (Auto) 0.6 (0.1-1.2) X10*3/uL Eos # (Auto) 0.2 (0.0-0.4) X10*3/uL Baso # (Auto) 0.0 (0.0-0.2) X10*3/uL Abs Immat Gran (auto) 0.04 H (0.00-0.03) X10*3/uL Absolute Neuts (auto) 5.8 (2.0-8.3) x10*3/uL Absolute Nucleated RBC 0.000 (0.0-0.012) X10*3/uL Nucleated RBC % (auto) 0.0 (0.0-0.2) /100WBC Sodium 136 (135-145) mmol/L Potassium 4.8 D (3.3-5.1) mmol/L Chloride 101 (96-108) mmol/L Carbon Dioxide 28 (22-29) mmol/L Anion Gap 12 (12-20) BUN 8 L (9-16) mg/dL Creatinine 0.70 (0.5-1.4) mg/dL Estim Creat Clear Calc 125.1 Estimated GFR > 60 POC Glucose (60-115) mg/dL Random Glucose 249 H (60-115) mg/dL Calcium 9.6 D (8.4-10.2) mg/dL Total Bilirubin 0.3 (0.0-1.0) mg/dL AST 18 (5-37) U/L ALT 17 (0-40) U/L Alkaline Phosphatase 75 (39-117) U/L Total Protein 6.8 (6.5-8.0) g/dL Albumin 3.8 (3.5-5.0) g/dL Urine Color Yellow Urine Appearance Clear Urine pH 7.0 (5.0-9.0) Ur Specific [place] 1.020 (1.005-1.025) Urine Protein Negative (Neg-Trace) mg/dL Urine Glucose (UA) 500 H (Negative) mg/dL Urine Ketones Negative (Negative) mg/dL Urine Blood Negative (Negative) Urine Nitrite Negative (Negative) Ur Leukocyte Esterase Negative (Negative) Urine Opiates Screen Not Detected (Not Detect) Ur Buprenorphine Scrn Not Detected (Not Detect) ng/mL Ur Oxycodone Screen Not Detected (Not Detect) ng/mL Urine Methadone Screen Not Detected (Not Detect) ng/mL Urine Fentanyl Screen Not Detected (Not Detect) Ur Barbiturates Screen Not Detected (Not Detect) Ur Phencyclidine Scrn Not Detected (Not Detect) Ur Amphetamines Screen Not Detected (Not Detect) U Benzodiazepines Scrn Not Detected (Not Detect) Urine Cocaine Screen POSITIVE H (Not Detect) U Marijuana (THC) Screen POSITIVE H (Not Detect) Ethyl Alcohol < 10 mg/dL Influenza Type A (PCR) NEGATIVE (Negative) Influenza Type B (PCR) NEGATIVE (Negative) RSV RNA Qual (PCR) NEGATIVE (Negative) SARS-CoV-2 RNA (RT-PCR) NEGATIVE (Negative) 06/28/24 06/29/24 06/29/24 Range/Units 21:00 07:05 12:59 WBC (4.8-10.8) X10*3/uL RBC (4.60-5.80) X10*6/uL Hgb (14.0-18.0) g/dl Hct (42.0-52.0) % MCV (80.0-98.0) fL MCH (27.0-33.0) pg MCHC (31.0-36.0) g/dl RDW (11.0-16.0) % Plt Count (160-400) X10*3/uL MPV (9.4-12.4) fL Immature Gran % (Auto) (0.0-0.4) % Neut % (Auto) (45-73) % Lymph % (Auto) (20-40) % [place] % (Auto) (2-11) % Eos % (Auto) (0-4) % Baso % (Auto) (0-2) % Lymph # (Auto) (1.2-4.9) X10*3/uL [place] # (Auto) (0.1-1.2) X10*3/uL Eos # (Auto) (0.0-0.4) X10*3/uL Baso # (Auto) (0.0-0.2) X10*3/uL Abs Immat Gran (auto) (0.00-0.03) X10*3/uL Absolute Neuts (auto) (2.0-8.3) x10*3/uL Absolute Nucleated RBC (0.0-0.012) X10*3/uL Nucleated RBC % (auto) (0.0-0.2) /100WBC Sodium (135-145) mmol/L Potassium (3.3-5.1) mmol/L Chloride (96-108) mmol/L Carbon Dioxide (22-29) mmol/L Anion Gap (12-20) BUN (9-16) mg/dL Creatinine (0.5-1.4) mg/dL Estim Creat Clear Calc Estimated GFR POC Glucose 255 H 244 H 289 H (60-115) mg/dL Random Glucose (60-115) mg/dL Calcium (8.4-10.2) mg/dL Total Bilirubin (0.0-1.0) mg/dL AST (5-37) U/L ALT (0-40) U/L Alkaline Phosphatase (39-117) U/L Total Protein (6.5-8.0) g/dL Albumin (3.5-5.0) g/dL Urine Color Urine Appearance Urine pH (5.0-9.0) Ur Specific [place] (1.005-1.025) Urine Protein (Neg-Trace) mg/dL Urine Glucose (UA) (Negative) mg/dL Urine Ketones (Negative) mg/dL Urine Blood (Negative) Urine Nitrite (Negative) Ur Leukocyte Esterase (Negative) Urine Opiates Screen (Not Detect) Ur Buprenorphine Scrn (Not Detect) ng/mL Ur Oxycodone Screen (Not Detect) ng/mL Urine Methadone Screen (Not Detect) ng/mL Urine Fentanyl Screen (Not Detect) Ur Barbiturates Screen (Not Detect) Ur Phencyclidine Scrn (Not Detect) Ur Amphetamines Screen (Not Detect) U Benzodiazepines Scrn (Not Detect) Urine Cocaine Screen (Not Detect) U Marijuana (THC) Screen (Not Detect) Ethyl Alcohol mg/dL Influenza Type A (PCR) (Negative) Influenza Type B (PCR) (Negative) RSV RNA Qual (PCR) (Negative) SARS-CoV-2 RNA (RT-PCR) (Negative) External Record Review External record reviewed: Inpatient record, Office record and Outpatient record Discharge Plan Discharge Clinical Impression: Suicidal ideation Patient Disposition: Admitted As Inpatient Interventions: [place]-Suicide Risk Severity Scale Last Done: 06/29/24 15:31
[2024-06-28 14:13] LABS: MANUAL DIFF FLAG NO
[2024-06-28 14:21] LABS: Basophils Percent Auto 0.5 % (0-2); Eosinophils Absolute Auto 0.2 X10*3/uL (0.0-0.4); Eosinophils Percent Auto 2.2 % (0-4); Hematocrit 43.6 % (42.0-52.0); Imm Gran Abs Auto 0.04 X10*3/uL (0.00-0.03); Imm Gran Pct Auto 0.5 % (0.0-0.4); Lymphocytes Absolute Auto 1.5 X10*3/uL (1.2-4.9); Lymphocytes Percent Auto 18.4 % (20-40); Mean Corpuscular HGB Conc 32.1 g/dl (31.0-36.0); Mean Corpuscular Hemoglobin 27.9 pg (27.0-33.0); Mean Corpuscular Volume 86.9 fL (80.0-98.0); Monocytes Absolute Auto 0.6 X10*3/uL (0.1-1.2); Monocytes Percent Auto 7.3 % (2-11); Neutrophils Absolute Auto 5.8 x10*3/uL (2.0-8.3); Neutrophils Percent Auto 71.1 % (45-73); Red Cell Distribution Width 13.2 % (11.0-16.0); White Blood Count 8.2 X10*3/uL (4.8-10.8)
[2024-06-28 14:25] LABS: Platelet Count 193 X10*3/uL (160-400); Red Blood Count 5.02 X10*6/uL (4.60-5.80)
[2024-06-28 14:27] VITALS: BP 156/96; PULSE 78; RESP 18; TEMP 36.6; O2SAT 100
[2024-06-28 14:30] LABS: Anion Gap 12 (12-20)
[2024-06-28 14:34] LABS: Alanine Aminotransferase 17 U/L (0-40); Albumin Level 3.8 g/dL (3.5-5.0); Aspartate Amino Transferase 18 U/L (5-37); Bilirubin Total 0.3 mg/dL (0.0-1.0); Blood Urea Nitrogen 8 mg/dL (9-16); Calcium 9.6 mg/dL (8.4-10.2); Carbon Dioxide 28 mmol/L (22-29); Chloride 101 mmol/L (96-108); Creatinine Clr Calc Pharmacy 125.1; Estimated Glomerular Filt Rate > 60; Ethanol < 10 mg/dL; Glucose Random 249 mg/dL (60-115); Potassium 4.8 mmol/L (3.3-5.1); Sodium 136 mmol/L (135-145); Total Protein 6.8 g/dL (6.5-8.0)
[2024-06-28 14:54] LABS: Influenza A PCR NEGATIVE (Negative); Influenza B PCR NEGATIVE (Negative); Resp Syncy Virus RNA Qual PCR NEGATIVE (Negative); SARS COV2 PCR INHOUSE NEGATIVE (Negative)
[2024-06-28 15:01] LABS: Alkaline Phosphatase 75 U/L (39-117)
[2024-06-28 16:00] LABS: Appearance Urine Clear; Color Urine Yellow; Glucose Urine UA 500 mg/dL (Negative); Leukocyte Esterase Urine Negative (Negative); Nitrite Urine Negative (Negative); Urine Blood Negative (Negative); Urine Ketones Negative (Negative); Urine Protein Negative (Neg-Trace)
[2024-06-28 16:31] LABS: Amphetamine Screen Urine Not Detected (Not Detect); Barbiturates, Urine Not Detected (Not Detect); Benzodiazepines Screen Urine Not Detected (Not Detect); Buprenorphine Scr Not Detected (Not Detect); Cannabinoid Screen Urine POSITIVE (Not Detect); Cocaine Screen Urine POSITIVE (Not Detect); Fentanyl, urine Not Detected (Not Detect); Methadone Screen, Urine Not Detected (Not Detect); Opiate Screen Urine Not Detected (Not Detect); Oxycodone Screen Urine Not Detected (Not Detect); Phencyclidine Screen Urine Not Detected (Not Detect)
--- OUTSIDE RECORDS SUMMARY | 2024-06-28 16:44 | XMS_ITS | Clinical Summary ---
Author Organization [facility] ity Address [address] [place] [address] Care Team Providers Care Auto Rental Supervisor Name Role Phone Unavailable Primary Care Provider [...] age to complete this topic Meningococcal B Vaccine Aged Out No l onger eligible based on patient's age to complete [...]
--- NOTE | 2024-06-28 17:24 | MHC.CARE ---
Patient will be adult IPLOC. Section 12a in chart for safety.
[2024-06-28 18:16] VITALS: BP 145/86; PULSE 91; RESP 14; O2SAT 99
--- NOTE | 2024-06-28 18:43 | PC.NURSE ---
Pt walking all around the ER, unable to redirect initially; security called to help guide pt back to stretcher; pt stating I don't need to be here ; pt currently resting on stretcher, sitter present
--- NOTE | 2024-06-28 19:28 | MHC.EDTECH ---
pt asked multiple times to not to cover his face because we need to be able to see his face since he is suicidal, pt refused. Per charge coordinator we would have to take his face cloth and blanket away. Pt covered his face with pillow, pillow taken away. Pt get strip naked and lay on bed heber side up. Security at the bedside.
--- NOTE | 2024-06-28 19:40 | PC.NURSE ---
patient tells me the only medications he takes is sertraline and trazodone as needed, along with tresiba insulin pen in AM, and insulin lispro per SS.
--- NOTE | 2024-06-28 20:04 | MHC.EDTECH ---
pt refuse food
--- NOTE | 2024-06-28 20:52 | PC.NURSE ---
Patient transferred from ED [address] to 06 with supervision of ED observer. Patient is calm and cooperative on arrival to Pod. Patient denies any pain/discomfort, offers no complaints at present. Patient oriented to his room, patient verbalized understating, currently resting in his bed, respiration even and unlabored, not s/s of distress noted.
[2024-06-28 21:09] LABS: Glucose, Whole Blood 255 mg/dL (60-115)
--- NOTE | 2024-06-28 21:27 | PC.NURSE ---
POC 255, patient refused sliding scale insulin stating that he does not take insulin at home. Patient educated on diabetes disease process and effects of diabetes/uncontrolled blood sugar on the body. Patient verbalized understanding, however continues to refuse sliding scale insulin. Dr. Cotto notified, no new orders at this estela.
--- NOTE | 2024-06-29 | ECG_ITS ---
Test Reason : CHECK FOR QTC Blood Pressure : */* mmHG Vent. Rate : 81 BPM Atrial Rate : 81 BPM P-R Int : 148 ms QRS Dur : 88 ms QT Int : 354 ms P-R-T Axes : 55 50 66 degrees QTcB Int : 411 ms Normal sinus rhythm Normal ECG When compared with ECG of 13-Jan-2024 05:18, No significant change was found Referred By: Giselle Maria Electronically Signed By: Baldev Morales
--- NOTE | 2024-06-29 03:17 | PC.NURSE ---
Patient noted ambulating to a restroom and back to his room with a steady gait. Vital signs obtained and noted to be stable, patient offers no complaints at present. Plan of care ongoing.
[2024-06-29 03:20] VITALS: BP 140/80; PULSE 86; RESP 17; TEMP 36.6; O2SAT 99
--- NOTE | 2024-06-29 07:06 | PC.NURSE ---
Assumed care of patient at 0645, patient appears to be in no apparent distress this am, resting in bed, respirations even and unlabored. Continue plan of care for inpatient bedsearch. Patient refused to take morning insulin despite elevated POCs, DO aware
[2024-06-29 07:10] LABS: Glucose, Whole Blood 244 mg/dL (60-115)
[2024-06-29 13:03] LABS: Glucose, Whole Blood 289 mg/dL (60-115)
--- NOTE | 2024-06-29 13:19 | PC.NURSE ---
patient refused lunch tray, patient refused insulin per MAR
--- NOTE | 2024-06-29 14:53 | PC.NURSE ---
Assumed care of patient at 1450, patient moved to BH 8, calm and cooperative, no apparent distress noted
[2024-06-29 15:46] VITALS: BP 132/92; PULSE 92; RESP 16; TEMP 36.9; O2SAT 99
[2024-06-29 18:18] LABS: Glucose, Whole Blood 311 mg/dL (60-115)
[2024-06-29] MEDS: Insulin Lispro 100 UNIT/ML 3 ML VIAL SUBCUT ×2 (18:25→21:20)
--- NOTE | 2024-06-29 18:32 | PC.ADMIT ---
PT IS A 34 YEAR OLD, FRISIAN SPEAKING, MALE ADMITTED TO [facility] FROM [facility] ED POD. HE PRESENTED TO THE ED WITH INCREASED DEPRESSION AFTER TELLING HIS THERAPIST THAT HE WAS ENDORSING SI DUE TO LIFE STRESSORS. HE CURRENTLY DENIES SI OR HI. DENIES AH/VH AND DOES NOT APPEAR TO BE RESPONDING TO INTERNAL STIMULI. PT REPORT MODERATE DEPRESSION. DENIES ANXIETY. PT HAS HAD PREVIOUS SUICIDE ATTEMPTS BY INJECTING HIMSELF WITH TOO MUCH INSULIN. PT IS A TYPE 1 DIABETIC. TOX SCREEN POSITIVE FOR COCAINE WHICH HE USES ON OCCASION AND MARIJUANA WHICH HE USES DAILY. DENIES ALCOHOL USE. PT IS ON 15 MINUTE SAFETY CHECKS. CONDITIONAL VOLUNTARY. PT REPORTS GOOD SLEEP USING TRAZADONE. DECREASED APPETITE. CURRENTLY LIVING AT HOME WITH HIS MOTHER WHO HE RECOGNIZES A POSITIVE SUPPORT. PT HAS INCREASINGLY BEEN ISOLATIVE. PT IS SAFE ON UNIT AND ABLE TO SEEK STAFF. PT COMPLETED A SKIN CHECK. SKIN CHECK UNREMARKABLE. PT SHOWERED AFTER SKIN CHECK. PT DENIES TRAUMA HX. HAS OUTPATIENT THERAPIST, PCP, AND PSYCHIATRIST.
[2024-06-29 20:00] VITALS: BP 138/87; PULSE 93; TEMP 36.7; O2SAT 100
[2024-06-29] MEDS: traZODone HCL 50 MG TABLET PO (20:34)
[2024-06-29 20:57] LABS: Glucose, Whole Blood 176 mg/dL (60-115)
[2024-06-30 07:48] LABS: Glucose, Whole Blood 345 mg/dL (60-115)
[2024-06-30 07:57] LABS: Estimated Average Glucose 197 mg/dL; Hemoglobin A1C 296.4843 umol/L; Hemoglobin A1c % 8.5 % (<6.0); Total Hemoglobin (HGBA1C) 4277.0664 umol/L
[2024-06-30 08:10] LABS: Cholesterol 266 mg/dL (<200); HDL Cholesterol 65 mg/dL (>40); LDL Cholesterol Calculated 166 mg/dL (<100); Magnesium 1.8 mg/dL (1.6-2.6); Triglycerides 175 mg/dL (<150)
[2024-06-30 08:28] LABS: Free T4 (Free Thyroxine) 1.13 ng/dL (0.71-1.85); Thyroid Stimulating Hormone 3.91 uIU/mL (0.32-4.0)
[2024-06-30 08:43] LABS: Folate 12.4 ng/mL (> or = 4.0); Vitamin B12 510 pg/mL (200-900)
[2024-06-30 08:51] VITALS: BP 125/68; PULSE 59; TEMP 36.3; O2SAT 94
--- NOTE | 2024-06-30 09:05 | PC.NURSE ---
Pt signed 3day notice, up on friday07/05/24. , SW, UR notified.
--- NOTE | 2024-06-30 09:54 | HO.PSYADMNOT ---
HPI Date of Service: 06/30/24 Chief Complaint: Recurrent Major Depression Sources of Information: patient interviewed, chart reviewed and crisis/core team assessment reviewed HPI Subjective Notes: Conditional Voluntary and 3 Day Narrative: Pt is a 34 yo with hx of depression, anxiety who presents for what his therapist perceived as a suicidal comment. Pt says he was at his therapy appointment and was in a cranky mood... He told his therapist that he was going to go home and take some sleeping pills so he could just sleep and get his mind right however he says he not at all suicidal, never said he was and when asked denied any suicidality. Patient explains that about 6 months ago, in his therapist office he did say he was suicidal and had attempted suicide by overdosing with insulin; he said at that time he truly was suicidal, depressed and was ultimately psychiatrically admitted. Patient thinks that because of this past event, his therapist and supervisor dairy sanitation were over reactive. Patient says he understands this reaction but wishes that they were more forthcoming because they implied he was just going to the hospital to get checked out and never talked about inpatient admission. Patient reports over the past month he has been doing well, good mood, no depression or SI at all. Denies drug/alcohol use pt seen on 06/30/24 at 2:30pm Past Psychiatric History: Psych hosp admits: Dec 2023 SA: first suicide attempt October 07 2023 took heroin 2nd attempt Dec 2023 with Insulin SIB: none HIB: none outpt: therapist ([facility]) - Medical Evaluation Reviewed: Yes [facility] Medical History (Updated 07/01/24 @ 10:54 by Brian Peñaloza MD) Anxiety Suicide attempt Nicotine dependence MDD (major depressive disorder), severe Cocaine use disorder Noncompliance Dental decay Diabetes mellitus type 1, uncontrolled Hyperlipidemia LDL goal <100 Surgical History No history of previous surgery Family History: Father: by heroin overdose. Mother: Inpatient for 1 month, several years ago, was acutely suicidal. Social History: lives mom/dad who are supportive Patient was raised by both parents, has 1 sister and 1 brother. After parents , father of heroin overdose. Mother remarried. Patient currently lives with mother and stepfather. Recently lost job. Did not complete high school. Trauma History: denies Diagnostics Vital Signs (24Hr): Vital Signs - 24 hr 06/29/24 15:46 06/29/24 20:00 06/30/24 08:51 Temperature 98.5 F 98.0 F 97.3 F Pulse Rate 92 93 59 Respiratory Rate 16 Blood Pressure 132/92 H 138/87 125/68 Pulse Oximetry 99 100 94 Oxygen Delivery Method Room Air Room Air Room Air BMI result Body Mass Index 21.0 Labs 06/28/24 14:08 06/28/24 14:08 Labs: Laboratory Results - last 48 hr 06/28/24 06/28/24 06/28/24 14:08 14:09 15:49 WBC 8.2 RBC 5.02 D Hgb 14.0 D Hct 43.6 D MCV 86.9 MCH 27.9 MCHC 32.1 RDW 13.2 Plt Count 193 D MPV 12.0 Immature Gran % (Auto) 0.5 H Neut % (Auto) 71.1 Lymph % (Auto) 18.4 L Hudson % (Auto) 7.3 Eos % (Auto) 2.2 Baso % (Auto) 0.5 Lymph # (Auto) 1.5 Hudson # (Auto) 0.6 Eos # (Auto) 0.2 Baso # (Auto) 0.0 Abs Immat Gran (auto) 0.04 H Absolute Neuts (auto) 5.8 Absolute Nucleated RBC 0.000 Nucleated RBC % (auto) 0.0 Sodium 136 Potassium 4.8 D Chloride 101 Carbon Dioxide 28 Anion Gap 12 BUN 8 L Creatinine 0.70 Estim Creat Clear Calc 125.1 Estimated GFR > 60 POC Glucose Random Glucose 249 H Estimat Average Glucose Hemoglobin A1c % Calcium 9.6 D Magnesium Total Bilirubin 0.3 AST 18 ALT 17 Alkaline Phosphatase 75 Total Protein 6.8 Albumin 3.8 Triglycerides Cholesterol LDL Cholesterol, Calc HDL Cholesterol Vitamin B12 Folate TSH Free T4 Urine Color Yellow Urine Appearance Clear Urine pH 7.0 Ur Specific [place] 1.020 Urine Protein Negative Urine Glucose (UA) 500 H Urine Ketones Negative Urine Blood Negative Urine Nitrite Negative Ur Leukocyte Esterase Negative Urine Opiates Screen Not Detected Ur Buprenorphine Scrn Not Detected Ur Oxycodone Screen Not Detected Urine Methadone Screen Not Detected Urine Fentanyl Screen Not Detected Ur Barbiturates Screen Not Detected Ur Phencyclidine Scrn Not Detected Ur Amphetamines Screen Not Detected U Benzodiazepines Scrn Not Detected Urine Cocaine Screen POSITIVE H U Marijuana (THC) Screen POSITIVE H Ethyl Alcohol < 10 Influenza Type A (PCR) NEGATIVE Influenza Type B (PCR) NEGATIVE RSV RNA Qual (PCR) NEGATIVE SARS-CoV-2 RNA (RT-PCR) NEGATIVE 06/28/24 06/29/24 06/29/24 21:00 07:05 12:59 WBC RBC Hgb Hct MCV MCH MCHC RDW Plt Count MPV Immature Gran % (Auto) Neut % (Auto) Lymph % (Auto) Hudson % (Auto) Eos % (Auto) Baso % (Auto) Lymph # (Auto) Hudson # (Auto) Eos # (Auto) Baso # (Auto) Abs Immat Gran (auto) Absolute Neuts (auto) Absolute Nucleated RBC Nucleated RBC % (auto) Sodium Potassium Chloride Carbon Dioxide Anion Gap BUN Creatinine Estim Creat Clear Calc Estimated GFR POC Glucose 255 H 244 H 289 H Random Glucose Estimat Average Glucose Hemoglobin A1c % Calcium Magnesium Total Bilirubin AST ALT Alkaline Phosphatase Total Protein Albumin Triglycerides Cholesterol LDL Cholesterol, Calc HDL Cholesterol Vitamin B12 Folate TSH Free T4 Urine Color Urine Appearance Urine pH Ur Specific [place] Urine Protein Urine Glucose (UA) Urine Ketones Urine Blood Urine Nitrite Ur Leukocyte Esterase Urine Opiates Screen Ur Buprenorphine Scrn Ur Oxycodone Screen Urine Methadone Screen Urine Fentanyl Screen Ur Barbiturates Screen Ur Phencyclidine Scrn Ur Amphetamines Screen U Benzodiazepines Scrn Urine Cocaine Screen U Marijuana (THC) Screen Ethyl Alcohol Influenza Type A (PCR) Influenza Type B (PCR) RSV RNA Qual (PCR) SARS-CoV-2 RNA (RT-PCR) 06/29/24 06/29/24 06/30/24 18:14 20:54 07:32 WBC RBC Hgb Hct MCV MCH MCHC RDW Plt Count MPV Immature Gran % (Auto) Neut % (Auto) Lymph % (Auto) Hudson % (Auto) Eos % (Auto) Baso % (Auto) Lymph # (Auto) Hudson # (Auto) Eos # (Auto) Baso # (Auto) Abs Immat Gran (auto) Absolute Neuts (auto) Absolute Nucleated RBC Nucleated RBC % (auto) Sodium Potassium Chloride Carbon Dioxide Anion Gap BUN Creatinine Estim Creat Clear Calc Estimated GFR POC Glucose 311 H 176 H Random Glucose Estimat Average Glucose 197 Hemoglobin A1c % 8.5 H Calcium Magnesium 1.8 Total Bilirubin AST ALT Alkaline Phosphatase Total Protein Albumin Triglycerides 175 H Cholesterol 266 H LDL Cholesterol, Calc 166 H HDL Cholesterol 65 Vitamin B12 510 Folate 12.4 TSH 3.91 Free T4 1.13 Urine Color Urine Appearance Urine pH Ur Specific [place] Urine Protein Urine Glucose (UA) Urine Ketones Urine Blood Urine Nitrite Ur Leukocyte Esterase Urine Opiates Screen Ur Buprenorphine Scrn Ur Oxycodone Screen Urine Methadone Screen Urine Fentanyl Screen Ur Barbiturates Screen Ur Phencyclidine Scrn Ur Amphetamines Screen U Benzodiazepines Scrn Urine Cocaine Screen U Marijuana (THC) Screen Ethyl Alcohol Influenza Type A (PCR) Influenza Type B (PCR) RSV RNA Qual (PCR) SARS-CoV-2 RNA (RT-PCR) 06/30/24 07:43 WBC RBC Hgb Hct MCV MCH MCHC RDW Plt Count MPV Immature Gran % (Auto) Neut % (Auto) Lymph % (Auto) Hudson % (Auto) Eos % (Auto) Baso % (Auto) Lymph # (Auto) [place] # (Auto) Eos # (Auto) Baso # (Auto) Abs Immat Gran (auto) Absolute Neuts (auto) Absolute Nucleated RBC Nucleated RBC % (auto) Sodium Potassium Chloride Carbon Dioxide Anion Gap BUN Creatinine Estim Creat Clear Calc Estimated GFR POC Glucose 345 H Random Glucose Estimat Average Glucose Hemoglobin A1c % Calcium Magnesium Total Bilirubin AST ALT Alkaline Phosphatase Total Protein Albumin Triglycerides Cholesterol LDL Cholesterol, Calc HDL Cholesterol Vitamin B12 Folate TSH Free T4 Urine Color Urine Appearance Urine pH Ur Specific [place] Urine Protein Urine Glucose (UA) Urine Ketones Urine Blood Urine Nitrite Ur Leukocyte Esterase Urine Opiates Screen Ur Buprenorphine Scrn Ur Oxycodone Screen Urine Methadone Screen Urine Fentanyl Screen Ur Barbiturates Screen Ur Phencyclidine Scrn Ur Amphetamines Screen U Benzodiazepines Scrn Urine Cocaine Screen U Marijuana (THC) Screen Ethyl Alcohol Influenza Type A (PCR) Influenza Type B (PCR) RSV RNA Qual (PCR) SARS-CoV-2 RNA (RT-PCR) Meds/Allergies Meds Home Medications ?Medication ?Instructions ?Recorded ?Confirmed ?Type sertraline 100 mg tablet 100 mg PO QAM 06/28/24 06/28/24 History Allergies Allergies Allergy/AdvReac Type Severity Reaction Status Date / Time No Known Allergies Allergy Verified 06/28/24 13:36 [No Known Allergies*] Mental Status Exam Mental Status Exam Narrative: Pt is alert and oriented; behavior is cooperative, friendly and calm; patient is not in distress; dressed in casual attire with unkempt hair but adequate hygiene; mood is described as good and affect congruent; eye contact appropriate; Speech is normal rate, volume and prosody and not pressured; no psychomotor agitation/retardation present; thought process is organized and goal directed; Thought content is on tx; otherwise pertinent to relevant topics and without any delusional content, paranoid ideations or grandiosity; denies any SI/HI. Denies AVH and there is no evidence of perceptual disturbance. Patients insight and judgment appear intact. Assessment & Plan Assessment & Plan (1) Anxiety: Status: Acute Code(s): F41.9 - Anxiety disorder, unspecified (2) Cocaine use disorder: Status: Acute Code(s): F14.10 - Cocaine abuse, uncomplicated Plan Pt is a 34 yo with hx of depression, anxiety who presents for what his therapist perceived as a suicidal comment. Pt says he was at his therapy appointment and was in a cranky mood... He told his therapist that he was going to go home and take some sleeping pills so he could just sleep and get his mind right however he says he not at all suicidal, never said he was and when asked denied any suicidality. Patient explains that about 6 months ago, in his therapist office he did say he was suicidal and had attempted suicide by overdosing with insulin; he said at that time he truly was suicidal, depressed and was ultimately psychiatrically admitted. Patient thinks that because of this past event, his therapist and supervisor dairy sanitation were over reactive. Patient says he understands this reaction but wishes that they were more forthcoming because they implied he was just going to the hospital to get checked out and never talked about inpatient admission. Patient reports over the past month he has been doing well, good mood, no depression or SI at all. Denies hx of trauma; Denies drug/alcohol use other than cannabis Formulation/clinical reasoning: Patient reports no recent bouts of depression but that he has had significant depressive episodes since teenage years. Again no current SI but says that SI thoughts will pop up now and then but he is able to tell the difference between when there does fleeting and he is being emotionally reactive verses when he is actually having active SI. Patient has been on Zoloft 100 mg for 2-3 months; given his ongoing propensity for emotional reactivity he agrees to increase it to 150. Will monitor patient for stability and gather collateral regarding SI comments -denies drug use but see cocaine in [facility] Plan: CV Q 15 minute checks Increase Zoloft to 150 mg Gather collateral Patient educated on: diagnosis, medication risk/benefits and therapeutic strategies Informed Consent: understands Reason for continued inpatient stay Substantial Risk for: rapid decompensation Statement Statement: I have reviewed the history and physical and performed a pertinent examination on my patient. No changes have occurred unless specified. If the History and Physical was not performed prior to admission, the Hospitalist's service will be consulted for completing the admission physical. Time Spent With Patient Time: Total time managing care of this patient today ____ minutes.
[2024-06-30] MEDS: Insulin Lispro 100 UNIT/ML 3 ML VIAL SUBCUT ×4 (10:28→21:04)
[2024-06-30] MEDS: hydrOXYzine HCL 25 MG TABLET PO (10:58)
[2024-06-30 12:22] LABS: Glucose, Whole Blood 382 mg/dL (60-115)
--- NOTE | 2024-06-30 12:41 | PC.NURSE ---
Pt's 1130 POC was 382. Pt received 10 units admelog per sliding scale protocol. Dr. Peñaloza contacted, no additional orders.
[2024-06-30] MEDS: Sertraline HCL 100 MG TABLET PO (15:06)
[2024-06-30 17:17] LABS: Glucose, Whole Blood 246 mg/dL (60-115)
[2024-06-30 19:37] VITALS: BP 126/98; PULSE 97; RESP 20; TEMP 36.9; O2SAT 99
[2024-06-30 20:17] LABS: Glucose, Whole Blood 343 mg/dL (60-115)
[2024-06-30] MEDS: traZODone HCL 50 MG TABLET PO (21:01)
[2024-07-01 07:00] VITALS: BMI 19.6
[2024-07-01 07:48] LABS: Glucose, Whole Blood 335 mg/dL (60-115)
[2024-07-01 08:00] VITALS: BP 122/62; PULSE 93; RESP 18; TEMP 36.8; O2SAT 98
[2024-07-01] MEDS: Insulin Lispro 100 UNIT/ML 3 ML VIAL SUBCUT ×4 (08:31→17:23)
[2024-07-01] MEDS: Sertraline HCL 50 MG TABLET 150 MG PO (08:32)
--- NOTE | 2024-07-01 09:24 | P.PNPSI_ITS ---
Subjective Subjective Date of Service: 07/01/24 Reason For Visit: Recurrent Major Depression Interim History: Met with patient; discussed with team Patient shared that he made more of a suicidal comment to his therapist that he 1st told mortgage or loan underwriter and social and political studies professor. Patient acknowledged that he told his therapist that he was going to go home and take sleeping pills and did not care if he woke up or ... Patient says he was never actually suicidal but wanted to test his therapist in a way, want to see if he would be worried or what his reaction would be. He said he wanted the therapist to be concerned but not to go so far as to get him hospitalized. Upon further reflection patient said that he was hoping his therapist would send him to respite because he was tired of being at his house all the time and needed a break. Patient went on to share that he is lonely at home, that he never leaves the house, has no friends; patient agree that he could use help having more structure in his day and that this would be much better than just going to respite. Discussed crack cocaine abuse. Patient said that he used to use crack cocaine daily but since went to time he significantly cut down and now only uses once every week and a half, proud of himself for having cut down his use. Regarding diabetes, mortgage or loan underwriter reviewed hemoglobin A1c and though it is improved from 2 years ago, it is up a little since months ago. He says that he forgets a lot to check it and only checks it about twice a day. He is agreeable to consult to assess medication regimen Mental Status Exam Mental Status Exam Narrative: Pt is alert and oriented; behavior is cooperative, friendly and calm; patient is not in distress; dressed in casual attire with unkempt hair but adequate hygiene; mood is described as good and affect congruent; eye contact appropriate; Speech is normal rate, volume and prosody and not pressured; no psychomotor agitation/retardation present; thought process is organized and goal directed; Thought content is on tx; otherwise pertinent to relevant topics and without any delusional content, paranoid ideations or grandiosity; denies any SI/HI. Denies AVH and there is no evidence of perceptual disturbance. Patients insight and judgment appear intact. Diagnostics Vital Signs (24Hr): Vital Signs - 24 hr 06/30/24 19:37 07/01/24 08:00 Temperature 98.4 F 98.2 F Pulse Rate 97 93 Respiratory Rate 20 18 Blood Pressure 126/98 H 122/62 Pulse Oximetry 99 98 Oxygen Delivery Method Room Air Room Air BMI result Body Mass Index 21.0 Labs 06/28/24 14:08 06/28/24 14:08 Labs: Laboratory Results - last 48 hr 06/29/24 06/29/24 06/29/24 12:59 18:14 20:54 POC Glucose 289 H 311 H 176 H Estimat Average Glucose Hemoglobin A1c % Magnesium Triglycerides Cholesterol LDL Cholesterol, Calc HDL Cholesterol Vitamin B12 Folate TSH Free T4 06/30/24 06/30/24 06/30/24 07:32 07:43 12:16 POC Glucose 345 H 382 H* Estimat Average Glucose 197 Hemoglobin A1c % 8.5 H Magnesium 1.8 Triglycerides 175 H Cholesterol 266 H LDL Cholesterol, Calc 166 H HDL Cholesterol 65 Vitamin B12 510 Folate 12.4 TSH 3.91 Free T4 1.13 06/30/24 06/30/24 07/01/24 17:12 20:11 07:44 POC Glucose 246 H 343 H 335 H Estimat Average Glucose Hemoglobin A1c % Magnesium Triglycerides Cholesterol LDL Cholesterol, Calc HDL Cholesterol Vitamin B12 Folate TSH Free T4 Medications Medications Current Medications Acetaminophen (Acetaminophen 325 Mg Tablet) 650 mg PO Q6H PRN PRN Reason: Headache/Pain, Scale 1-10 Al Hydroxide/Mg Hydroxide (Magnesium Hydrox/Alum Hydrox 30 Ml Oral.Susp) 30 ml PO Q6H PRN PRN Reason: Heartburn/Nausea Dextrose (Dextrose 50 % 25 Gm/50 Ml Syringe) 25 gm IVPUSH Q15M PRN; Protocol PRN Reason: per Hypoglycemia Standing Ord. Glucose (Glucose Gel 15 Gm Gel..Gram.) 15 gm PO Q15M PRN; Protocol PRN Reason: per Hypoglycemia Standing Ord. Hydroxyzine HCl (Hydroxyzine Hcl 25 Mg Tablet) 25 mg PO Q6H PRN PRN Reason: mild anxiety Last Admin: 06/30/24 10:58 Dose: 25 mg Insulin Human Lispro (Insulin Lispro 100 Unit/Ml 3 Ml Vial) [facility]; Protocol Last Admin: 07/01/24 08:31 Dose: 8 unit Magnesium Hydroxide (Milk Of Magnesia 30 Ml Oral.Susp) 30 ml PO DAILY PRN PRN Reason: Constipation Nicotine Polacrilex (Nicotine Polacrilex 2 Mg Gum) 4 mg BUCCAL Q2H PRN PRN Reason: Nicotine Cravings Sertraline HCl (Sertraline Hcl 50 Mg Tablet) 150 mg PO DAILY AMISHA Last Admin: 07/01/24 08:32 Dose: 150 mg Trazodone HCl (Trazodone Hcl 50 Mg Tablet) 50 mg PO BEDTIME MRX1 PRN PRN Reason: Insomnia Last Admin: 06/30/24 21:01 Dose: 50 mg Allergies Allergies Allergy/AdvReac Type Severity Reaction Status Date / Time No Known Allergies Allergy Verified 06/28/24 13:36 [No Known Allergies*] Assessment & Plan Assessment & Plan (1) Anxiety: Status: Acute Code(s): F41.9 - Anxiety disorder, unspecified (2) Cocaine use disorder: Status: Acute Code(s): F14.10 - Cocaine abuse, uncomplicated (3) Diabetes mellitus type 1, uncontrolled: Status: Acute Code(s): E10.65 - Type 1 diabetes mellitus with hyperglycemia Plan Pt is a 34 yo with hx of depression, anxiety who presents for what his therapist perceived as a suicidal comment. Pt says he was at his therapy appointment and was in a cranky mood... He told his therapist that he was going to go home and take some sleeping pills so he could just sleep and get his mind right however he says he not at all suicidal, never said he was and when asked denied any suicidality. Patient explains that about 6 months ago, in his therapist office he did say he was suicidal and had attempted suicide by overdosing with insulin; he said at that time he truly was suicidal, depressed and was ultimately psychiatrically admitted. Patient thinks that because of this past event, his therapist and pressure supervisor were over reactive. Patient says he understands this reaction but wishes that they were more forthcoming because they implied he was just going to the hospital to get checked out and never talked about inpatient admission. Patient reports over the past month he has been doing well, good mood, no depression or SI at all. Denies hx of trauma; Denies drug/alcohol use other than cannabis Formulation/clinical reasoning: Patient reports no recent bouts of depression but that he has had significant depressive episodes since teenage years. Again no current SI but says that SI thoughts will pop up now and then but he is able to tell the difference between when there does fleeting and he is being emotionally reactive verses when he is actually having active SI. Patient has been on Zoloft 100 mg for 2-3 months; given his ongoing propensity for emotional reactivity he agrees to increase it to 150. Will monitor and gather collateral regarding SI comments -denies drug use but see cocaine in [facility] Hospital course: 07/01 Patient shared that he made more of a suicidal comment to his therapist that he 1st told mortgage or loan underwriter and social and political studies professor. Patient acknowledged that he told his therapist that he was going to go home and take sleeping pills and did not care if he woke up or ... Patient says he was never actually suicidal but wanted to test his therapist in a way, want to see if he would be worried or what his reaction would be. He said he wanted the therapist to be concerned but not to go so far as to get him hospitalized. Upon further reflection patient said that he was hoping his therapist would send him to respite because he was tired of being at his house all the time and needed a break. Patient went on to share that he is lonely at home, that he never leaves the house, has no friends; patient agree that he could use help having more structure in his day and that this would be much better than just going to respite. -Discussed crack cocaine abuse. Patient said that he used to use crack cocaine daily but since went to time he significantly cut down and now only uses once every week and a half, proud of himself for having cut down his use. -Regarding diabetes, mortgage or loan underwriter reviewed hemoglobin A1c and though it is improved from 2 years ago, it is up a little since months ago. He says that he forgets a lot to check it and only checks it about twice a day. He is agreeable to consult to assess medication regimen Plan: CV Q 15 minute checks Increased Zoloft to 150mg Hospitalist consult to assess medication for diabetes Patient educated on: diagnosis, medication risk/benefits, substance abuse, therapeutic strategies and medical condition Informed Consent: understands Reason for continued inpatient stay Substantial Risk for: rapid decompensation Time Spent With Patient Time: Total time managing care of this patient today ____ minutes.
[2024-07-01 12:15] LABS: Glucose, Whole Blood 380 mg/dL (60-115)
--- NOTE | 2024-07-01 14:05 | PM.EVENT ---
Event Note Date of Service: 07/01/24 Event Note: Pt is a 34-year-old male with a PMH significant for type 1 diabetes admitted to [facility] with hospitalist consult for question of adding anti glycemic agent. As a general rule, type 1 diabetics are treated with both short-acting and long-acting insulins only, and not with adjunctive therapies. Review of records indicates pt is currently only on sliding scale insulin and not on Lantus. Will start by adding pt's long acting insulin. Pt should also be encouraged to adhere to a diabetic diet and diabetic snacking. Time Spent With Patient Time: Total time managing care of this patient today ____ minutes.
[2024-07-01] MEDS: Insulin Glargine,Hum.rec.anlog 100 UNIT/ML 10 ML VIAL 10 UNIT SUBCUT (15:06)
[2024-07-01 17:14] LABS: Glucose, Whole Blood 281 mg/dL (60-115)
[2024-07-01 20:00] VITALS: BP 140/88; PULSE 101; RESP 18; TEMP 36.6; O2SAT 97
[2024-07-01] MEDS: hydrOXYzine HCL 25 MG TABLET PO (21:25)
[2024-07-01] MEDS: traZODone HCL 50 MG TABLET PO (21:25)
[2024-07-01 21:31] LABS: Glucose, Whole Blood 100 mg/dL (60-115)
[2024-07-02 08:00] VITALS: BP 125/71; PULSE 88; TEMP 37.1; O2SAT 99
[2024-07-02 08:11] LABS: Glucose, Whole Blood 414 mg/dL (60-115)
[2024-07-02] MEDS: Insulin Glargine,Hum.rec.anlog 100 UNIT/ML 10 ML VIAL 24 UNIT SUBCUT (08:31)
[2024-07-02] MEDS: Insulin Lispro 100 UNIT/ML 3 ML VIAL SUBCUT ×4 (08:31→22:06)
[2024-07-02] MEDS: Sertraline HCL 50 MG TABLET 150 MG PO (08:32)
[2024-07-02 12:37] LABS: Glucose, Whole Blood 194 mg/dL (60-115)
--- NOTE | 2024-07-02 13:16 | P.PNPSI_ITS ---
Subjective Subjective Date of Service: 07/02/24 Reason For Visit: Recurrent Major Depression Interim History: Active on unit. social with peers. pt reports feeling good today; he reports improved sleep. denies any issues at this time. guarded and brief during assessment. denies SI/HI/VH/AH. encouraged to attend groups. Medication Compliance: Yes Side effects from medications: No Mental Status Exam Mental Status Exam Patient Appearance: Appropriate Patient Orientation: Person, Place, Time and Situation Level of Consciousness: Awake and Alert Patient Behavior: Appropriate, Guarded and Cooperative Mood Description: Calm Affect Description: Calm Ability to Follow Directions: Good Speech Pattern: Clear and Appropriate Memory Description: Intact Hallucinations: None Delusions: Not Present Thought Process: Intact Thought Content: positive for Intact Diagnostics Vital Signs (24Hr): Vital Signs - 24 hr 07/01/24 20:00 07/02/24 08:00 Temperature 97.8 F 98.7 F Pulse Rate 101 H 88 Respiratory Rate 18 Blood Pressure 140/88 H 125/71 Pulse Oximetry 97 99 Oxygen Delivery Method Room Air Room Air BMI result Body Mass Index 19.6 Labs 06/28/24 14:08 06/28/24 14:08 Labs: Laboratory Results - last 48 hr 06/30/24 06/30/24 07/01/24 17:12 20:11 07:44 POC Glucose 246 H 343 H 335 H 07/01/24 07/01/24 07/01/24 12:11 17:11 21:22 POC Glucose 380 H* 281 H 100 07/02/24 07/02/24 08:04 12:31 POC Glucose 414 H* 194 H Medications Medications Current Medications Acetaminophen (Acetaminophen 325 Mg Tablet) 650 mg PO Q6H PRN PRN Reason: Headache/Pain, Scale 1-10 Al Hydroxide/Mg Hydroxide (Magnesium Hydrox/Alum Hydrox 30 Ml Oral.Susp) 30 ml PO Q6H PRN PRN Reason: Heartburn/Nausea Dextrose (Dextrose 50 % 25 Gm/50 Ml Syringe) 25 gm IVPUSH Q15M PRN; Protocol PRN Reason: per Hypoglycemia Standing Ord. Glucose (Glucose Gel 15 Gm Gel..Gram.) 15 gm PO Q15M PRN; Protocol PRN Reason: per Hypoglycemia Standing Ord. Hydroxyzine HCl (Hydroxyzine Hcl 25 Mg Tablet) 25 mg PO Q6H PRN PRN Reason: mild anxiety Last Admin: 07/01/24 21:25 Dose: 25 mg Insulin Glargine (Insulin Glargine,Hum.Rec.Anlog 100 Unit/Ml 10 Ml Vial) 24 unit SUBCUT DAILY [facility] Last Admin: 07/02/24 08:31 Dose: 24 unit Insulin Human Lispro (Insulin Lispro 100 Unit/Ml 3 Ml Vial) 0 unit SUBCUT QIDACHS [facility]; Protocol Last Admin: 07/02/24 12:45 Dose: 2 unit Magnesium Hydroxide (Milk Of Magnesia 30 Ml Oral.Susp) 30 ml PO DAILY PRN PRN Reason: Constipation Nicotine Polacrilex (Nicotine Polacrilex 2 Mg Gum) 4 mg BUCCAL Q2H PRN PRN Reason: Nicotine Cravings Sertraline HCl (Sertraline Hcl 50 Mg Tablet) 150 mg PO DAILY [facility] Last Admin: 07/02/24 08:32 Dose: 150 mg Trazodone HCl (Trazodone Hcl 50 Mg Tablet) 50 mg PO BEDTIME MRX1 PRN PRN Reason: Insomnia Last Admin: 07/01/24 21:25 Dose: 50 mg Allergies Allergies Allergy/AdvReac Type Severity Reaction Status Date / Time No Known Allergies Allergy Verified 06/28/24 13:36 [No Known Allergies*] Assessment & Plan Assessment & Plan (1) Anxiety: Status: Acute Code(s): F41.9 - Anxiety disorder, unspecified (2) Cocaine use disorder: Status: Acute Code(s): F14.10 - Cocaine abuse, uncomplicated (3) Diabetes mellitus type 1, uncontrolled: Status: Acute Code(s): E10.65 - Type 1 diabetes mellitus with hyperglycemia Plan Pt is a 34 yo with hx of depression, anxiety who presents for what his therapist perceived as a suicidal comment. Pt says he was at his therapy appointment and was in a cranky mood... He told his therapist that he was going to go home and take some sleeping pills so he could just sleep and get his mind right however he says he not at all suicidal, never said he was and when asked denied any suicidality. Patient explains that about 6 months ago, in his therapist office he did say he was suicidal and had attempted suicide by overdosing with insulin; he said at that time he truly was suicidal, depressed and was ultimately psychiatrically admitted. Patient thinks that because of this past event, his therapist and gambling floor supervisor were over reactive. Patient says he understands this reaction but wishes that they were more forthcoming because they implied he was just going to the hospital to get checked out and never talked about inpatient admission. Patient reports over the past month he has been doing well, good mood, no depression or SI at all. Denies hx of trauma; Denies drug/alcohol use other than cannabis Formulation/clinical reasoning: Patient reports no recent bouts of depression but that he has had significant depressive episodes since teenage years. Again no current SI but says that SI thoughts will pop up now and then but he is able to tell the difference between when there does fleeting and he is being emotionally reactive verses when he is actually having active SI. Patient has been on Zoloft 100 mg for 2-3 months; given his ongoing propensity for emotional reactivity he agrees to increase it to 150. Will monitor and gather collateral regarding SI comments -denies drug use but see cocaine in [facility] Hospital course: 07/01 Patient shared that he made more of a suicidal comment to his therapist that he 1st told keno writer / runner and long term care social worker. Patient acknowledged that he told his therapist that he was going to go home and take sleeping pills and did not care if he woke up or ... Patient says he was never actually suicidal but wanted to test his therapist in a way, want to see if he would be worried or what his reaction would be. He said he wanted the therapist to be concerned but not to go so far as to get him hospitalized. Upon further reflection patient said that he was hoping his therapist would send him to respite because he was tired of being at his house all the time and needed a break. Patient went on to share that he is lonely at home, that he never leaves the house, has no friends; patient agree that he could use help having more structure in his day and that this would be much better than just going to respite. -Discussed crack cocaine abuse. Patient said that he used to use crack cocaine daily but since went to time he significantly cut down and now only uses once every week and a half, proud of himself for having cut down his use. -Regarding diabetes, keno writer / runner reviewed hemoglobin A1c and though it is improved from 2 years ago, it is up a little since months ago. He says that he forgets a lot to check it and only checks it about twice a day. He is agreeable to consult to assess medication regimen 07/02: pt reports feeling good today; he reports improved sleep. denies any issues at this time. guarded and brief during assessment. denies SI/HI/VH/AH. encouraged to attend groups. Plan: CV Q 15 minute checks Increased Zoloft to 150mg Hospitalist consult to assess medication for diabetes Patient educated on: diagnosis and medication risk/benefits Reason for continued inpatient stay Substantial Risk for: med/psych decompensation Time Spent With Patient Time: Total time managing care of this patient today _10___ minutes.
[2024-07-02 17:21] LABS: Glucose, Whole Blood 266 mg/dL (60-115)
[2024-07-02 20:00] VITALS: BP 124/60; PULSE 92; TEMP 36.6; O2SAT 98
[2024-07-02 20:37] LABS: Glucose, Whole Blood 191 mg/dL (60-115)
[2024-07-02] MEDS: traZODone HCL 50 MG TABLET PO (22:07)
[2024-07-02] MEDS: hydrOXYzine HCL 25 MG TABLET PO (22:07)
[2024-07-03 08:04] LABS: Glucose, Whole Blood 244 mg/dL (60-115)
--- NOTE | 2024-07-03 08:04 | HO.PSYCHPN ---
Subjective Subjective Date of Service: 07/03/24 Reason For Visit: Recurrent Major Depression Subjective Notes: Conditional Voluntary Healthcare Proxy: No Guardianship: No Medical Problems Affecting Mental Status: Yes (diabetes high sugars - says he eats more here) Interim History: 34yo reports he is doing fine and feels better on current medication, denying further si - or depression or xs anxiety - reports slept no s/e Medication Compliance: Yes Side effects from medications: No Attending Groups: Yes Review of Systems Acute medical concerns: Yes high sugars after eating candy and after lunch Mental Status Exam Mental Status Exam Patient Appearance: Well Grooomed and Bizarre (wearing wash cloth on head- but says usually likes a cap ) Patient Orientation: Person, Place, Time and Situation Level of Consciousness: Awake Patient Behavior: Appropriate and Cooperative Mood Description: Calm Affect Description: Appropriate Patient Cognition Impaired: No Ability to Follow Directions: Fair Speech Pattern: Clear Hallucinations: None Delusions: Not Present Thought Process: Intact and Goal Oriented Judgement: Fair Diagnostics Vital Signs (24Hr): Vital Signs - 24 hr 07/02/24 20:00 Temperature 97.8 F Pulse Rate 92 Blood Pressure 124/60 Pulse Oximetry 98 Oxygen Delivery Method Room Air BMI result Body Mass Index 19.6 Labs 06/28/24 14:08 06/28/24 14:08 Labs: Laboratory Results - last 48 hr 07/01/24 07/01/24 07/01/24 12:11 17:11 21:22 POC Glucose 380 H* 281 H 100 07/02/24 07/02/24 07/02/24 08:04 12:31 17:17 POC Glucose 414 H* 194 H 266 H 07/02/24 20:34 POC Glucose 191 H Medications Medications Current Medications Acetaminophen (Acetaminophen 325 Mg Tablet) 650 mg PO Q6H PRN PRN Reason: Headache/Pain, Scale 1-10 Al Hydroxide/Mg Hydroxide (Magnesium Hydrox/Alum Hydrox 30 Ml Oral.Susp) 30 ml PO Q6H PRN PRN Reason: Heartburn/Nausea Dextrose (Dextrose 50 % 25 Gm/50 Ml Syringe) 25 gm IVPUSH Q15M PRN; Protocol PRN Reason: per Hypoglycemia Standing Ord. Glucose (Glucose Gel 15 Gm Gel..Gram.) 15 gm PO Q15M PRN; Protocol PRN Reason: per Hypoglycemia Standing Ord. Hydroxyzine HCl (Hydroxyzine Hcl 25 Mg Tablet) 25 mg PO Q6H PRN PRN Reason: mild anxiety Last Admin: 07/02/24 22:07 Dose: 25 mg Insulin Glargine (Insulin Glargine,Hum.Rec.Anlog 100 Unit/Ml 10 Ml Vial) 24 unit SUBCUT DAILY [facility] Last Admin: 07/02/24 08:31 Dose: 24 unit Insulin Human Lispro (Insulin Lispro 100 Unit/Ml 3 Ml Vial) 0 unit SUBCUT QIDACHS [facility]; Protocol Last Admin: 07/02/24 22:06 Dose: 2 unit Magnesium Hydroxide (Milk Of Magnesia 30 Ml Oral.Susp) 30 ml PO DAILY PRN PRN Reason: Constipation Nicotine Polacrilex (Nicotine Polacrilex 2 Mg Gum) 4 mg BUCCAL Q2H PRN PRN Reason: Nicotine Cravings Sertraline HCl (Sertraline Hcl 50 Mg Tablet) 150 mg PO DAILY [facility] Last Admin: 07/02/24 08:32 Dose: 150 mg Trazodone HCl (Trazodone Hcl 50 Mg Tablet) 50 mg PO BEDTIME MRX1 PRN PRN Reason: Insomnia Last Admin: 07/02/24 22:07 Dose: 50 mg Allergies Allergies Allergy/AdvReac Type Severity Reaction Status Date / Time No Known Allergies Allergy Verified 06/28/24 13:36 [No Known Allergies*] Assessment & Plan Assessment & Plan (1) Anxiety: Status: Acute Code(s): F41.9 - Anxiety disorder, unspecified (2) Cocaine use disorder: Status: Acute Code(s): F14.10 - Cocaine abuse, uncomplicated (3) Diabetes mellitus type 1, uncontrolled: Status: Acute Code(s): E10.65 - Type 1 diabetes mellitus with hyperglycemia Plan Pt is a 34 yo with hx of depression, anxiety who presents for what his therapist perceived as a suicidal comment. Pt says he was at his therapy appointment and was in a cranky mood... He told his therapist that he was going to go home and take some sleeping pills so he could just sleep and get his mind right however he says he not at all suicidal, never said he was and when asked denied any suicidality. Patient explains that about 6 months ago, in his therapist office he did say he was suicidal and had attempted suicide by overdosing with insulin; he said at that time he truly was suicidal, depressed and was ultimately psychiatrically admitted. Patient thinks that because of this past event, his therapist and glazing department supervisor were over reactive. Patient says he understands this reaction but wishes that they were more forthcoming because they implied he was just going to the hospital to get checked out and never talked about inpatient admission. Patient reports over the past month he has been doing well, good mood, no depression or SI at all. Denies hx of trauma; Denies drug/alcohol use other than cannabis Formulation/clinical reasoning: Patient reports no recent bouts of depression but that he has had significant depressive episodes since teenage years. Again no current SI but says that SI thoughts will pop up now and then but he is able to tell the difference between when there does fleeting and he is being emotionally reactive verses when he is actually having active SI. Patient has been on Zoloft 100 mg for 2-3 months; given his ongoing propensity for emotional reactivity he agrees to increase it to 150. Will monitor and gather collateral regarding SI comments -denies drug use but see cocaine in [facility] Hospital course: 07/01 Patient shared that he made more of a suicidal comment to his therapist that he 1st told commercial lines underwriter and social science analyst. Patient acknowledged that he told his therapist that he was going to go home and take sleeping pills and did not care if he woke up or ... Patient says he was never actually suicidal but wanted to test his therapist in a way, want to see if he would be worried or what his reaction would be. He said he wanted the therapist to be concerned but not to go so far as to get him hospitalized. Upon further reflection patient said that he was hoping his therapist would send him to respite because he was tired of being at his house all the time and needed a break. Patient went on to share that he is lonely at home, that he never leaves the house, has no friends; patient agree that he could use help having more structure in his day and that this would be much better than just going to respite. -Discussed crack cocaine abuse. Patient said that he used to use crack cocaine daily but since went to time he significantly cut down and now only uses once every week and a half, proud of himself for having cut down his use. -Regarding diabetes, commercial lines underwriter reviewed hemoglobin A1c and though it is improved from 2 years ago, it is up a little since months ago. He says that he forgets a lot to check it and only checks it about twice a day. He is agreeable to consult to assess medication regimen 07/02: pt reports feeling good today; he reports improved sleep. denies any issues at this time. guarded and brief during assessment. denies SI/HI/VH/AH. encouraged to attend groups. 07/03- CTP advised better dietary discretion and given prn insulin Plan: CV Q 15 minute checks Increased Zoloft to 150mg Hospitalist consult to assess medication for diabetes Patient educated on: medical condition Informed Consent: further education needed Reason for continued inpatient stay Substantial Risk for: rapid decompensation and med/psych decompensation Time Spent With Patient Time: Total time managing care of this patient today ____ minutes.
[2024-07-03] MEDS: Sertraline HCL 50 MG TABLET 150 MG PO (08:12)
[2024-07-03] MEDS: Insulin Glargine,Hum.rec.anlog 100 UNIT/ML 10 ML VIAL 24 UNIT SUBCUT (08:12)
[2024-07-03] MEDS: Insulin Lispro 100 UNIT/ML 3 ML VIAL SUBCUT ×3 (08:12→17:06)
[2024-07-03 08:14] VITALS: BP 109/56; PULSE 109; RESP 18; TEMP 36.6; O2SAT 97
[2024-07-03 12:02] LABS: Glucose, Whole Blood 325 mg/dL (60-115)
[2024-07-03 14:06] LABS: Glucose, Whole Blood 465 mg/dL (60-115)
[2024-07-03] MEDS: Insulin Lispro 100 UNIT/ML 3 ML VIAL 10 UNIT SUBCUT (14:16)
[2024-07-03 17:01] LABS: Glucose, Whole Blood 252 mg/dL (60-115)
[2024-07-03 19:59] VITALS: BP 142/85; PULSE 93; RESP 16; TEMP 36.8; O2SAT 97
[2024-07-03 20:06] LABS: Glucose, Whole Blood 143 mg/dL (60-115)
[2024-07-03] MEDS: traZODone HCL 50 MG TABLET PO (22:36)
[2024-07-03] MEDS: hydrOXYzine HCL 25 MG TABLET PO (22:36)
[2024-07-04 07:49] LABS: Glucose, Whole Blood 162 mg/dL (60-115)
[2024-07-04 08:00] VITALS: BP 115/74; PULSE 88; RESP 18; TEMP 36.3; O2SAT 99
--- NOTE | 2024-07-04 08:03 | HO.PSYCHPN ---
Subjective Subjective Date of Service: 07/04/24 Reason For Visit: Recurrent Major Depression Subjective Notes: 3 Day (which may be up Friday- but pt hoping for Friday dc) Healthcare Proxy: No Guardianship: No Medical Problems Affecting Mental Status: Yes (diabetes) Interim History: 34 yo HM who is hoping to stay till Friday- because of need to set up dc planning- tolerating medication, sleeping- energy ok - ate too much had high bs, says doesn't normally do that at home. Medication Compliance: Yes Side effects from medications: No Attending Groups: Yes Review of Systems Acute medical concerns: Yes ongoing sugar variations Medical Review of Systems: unchanged Mental Status Exam Mental Status Exam Patient Appearance: Appropriate Patient Orientation: Person, Place and Situation Level of Consciousness: Awake Patient Behavior: Cooperative and Good Eye Contact Mood Description: Calm Affect Description: Appropriate Patient Cognition Impaired: No Ability to Follow Directions: Fair Speech Pattern: Clear Hallucinations: None Thought Process: Intact and Goal Oriented Depressive Symptoms: Changes in Appetite Judgement: Fair Diagnostics Vital Signs (24Hr): Vital Signs - 24 hr 07/03/24 08:14 07/03/24 19:59 Temperature 97.8 F 98.2 F Pulse Rate 109 H 93 Respiratory Rate 18 16 Blood Pressure 109/56 L 142/85 H Pulse Oximetry 97 97 Oxygen Delivery Method Room Air Room Air BMI result Body Mass Index 19.6 Labs 06/28/24 14:08 06/28/24 14:08 Labs: Laboratory Results - last 48 hr 07/02/24 07/02/24 07/02/24 08:04 12:31 17:17 POC Glucose 414 H* 194 H 266 H 07/02/24 07/03/24 07/03/24 20:34 07:58 11:56 POC Glucose 191 H 244 H 325 H 07/03/24 07/03/24 07/03/24 14:02 16:52 19:50 POC Glucose 465 H* 252 H 143 H 07/04/24 07:45 POC Glucose 162 H Medications Medications Current Medications Acetaminophen (Acetaminophen 325 Mg Tablet) 650 mg PO Q6H PRN PRN Reason: Headache/Pain, Scale 1-10 Al Hydroxide/Mg Hydroxide (Magnesium Hydrox/Alum Hydrox 30 Ml Oral.Susp) 30 ml PO Q6H PRN PRN Reason: Heartburn/Nausea Dextrose (Dextrose 50 % 25 Gm/50 Ml Syringe) 25 gm IVPUSH Q15M PRN; Protocol PRN Reason: per Hypoglycemia Standing Ord. Glucose (Glucose Gel 15 Gm Gel..Gram.) 15 gm PO Q15M PRN; Protocol PRN Reason: per Hypoglycemia Standing Ord. Hydroxyzine HCl (Hydroxyzine Hcl 25 Mg Tablet) 25 mg PO Q6H PRN PRN Reason: mild anxiety Last Admin: 07/03/24 22:36 Dose: 25 mg Insulin Glargine (Insulin Glargine,Hum.Rec.Anlog 100 Unit/Ml 10 Ml Vial) 24 unit SUBCUT DAILY [facility] Last Admin: 07/03/24 08:12 Dose: 24 unit Insulin Human Lispro (Insulin Lispro 100 Unit/Ml 3 Ml Vial) 0 unit SUBCUT QIDACHS [facility]; Protocol Last Admin: 07/03/24 20:07 Dose: Not Given Magnesium Hydroxide (Milk Of Magnesia 30 Ml Oral.Susp) 30 ml PO DAILY PRN PRN Reason: Constipation Nicotine Polacrilex (Nicotine Polacrilex 2 Mg Gum) 4 mg BUCCAL Q2H PRN PRN Reason: Nicotine Cravings Sertraline HCl (Sertraline Hcl 50 Mg Tablet) 150 mg PO DAILY [facility] Last Admin: 07/03/24 08:12 Dose: 150 mg Trazodone HCl (Trazodone Hcl 50 Mg Tablet) 50 mg PO BEDTIME MRX1 PRN PRN Reason: Insomnia Last Admin: 07/03/24 22:36 Dose: 50 mg Allergies Allergies Allergy/AdvReac Type Severity Reaction Status Date / Time No Known Allergies Allergy Verified 06/28/24 13:36 [No Known Allergies*] Assessment & Plan Assessment & Plan (1) Anxiety: Status: Acute Code(s): F41.9 - Anxiety disorder, unspecified (2) Cocaine use disorder: Status: Acute Code(s): F14.10 - Cocaine abuse, uncomplicated (3) Diabetes mellitus type 1, uncontrolled: Status: Acute Code(s): E10.65 - Type 1 diabetes mellitus with hyperglycemia Plan Pt is a 34 yo with hx of depression, anxiety who presents for what his therapist perceived as a suicidal comment. Pt says he was at his therapy appointment and was in a cranky mood... He told his therapist that he was going to go home and take some sleeping pills so he could just sleep and get his mind right however he says he not at all suicidal, never said he was and when asked denied any suicidality. Patient explains that about 6 months ago, in his therapist office he did say he was suicidal and had attempted suicide by overdosing with insulin; he said at that time he truly was suicidal, depressed and was ultimately psychiatrically admitted. Patient thinks that because of this past event, his therapist and agricultural and forestry supervisor were over reactive. Patient says he understands this reaction but wishes that they were more forthcoming because they implied he was just going to the hospital to get checked out and never talked about inpatient admission. Patient reports over the past month he has been doing well, good mood, no depression or SI at all. Denies hx of trauma; Denies drug/alcohol use other than cannabis Formulation/clinical reasoning: Patient reports no recent bouts of depression but that he has had significant depressive episodes since teenage years. Again no current SI but says that SI thoughts will pop up now and then but he is able to tell the difference between when there does fleeting and he is being emotionally reactive verses when he is actually having active SI. Patient has been on Zoloft 100 mg for 2-3 months; given his ongoing propensity for emotional reactivity he agrees to increase it to 150. Will monitor and gather collateral regarding SI comments -denies drug use but see cocaine in [facility] Hospital course: 07/01 Patient shared that he made more of a suicidal comment to his therapist that he 1st told grant writer and licensed social worker. Patient acknowledged that he told his therapist that he was going to go home and take sleeping pills and did not care if he woke up or ... Patient says he was never actually suicidal but wanted to test his therapist in a way, want to see if he would be worried or what his reaction would be. He said he wanted the therapist to be concerned but not to go so far as to get him hospitalized. Upon further reflection patient said that he was hoping his therapist would send him to respite because he was tired of being at his house all the time and needed a break. Patient went on to share that he is lonely at home, that he never leaves the house, has no friends; patient agree that he could use help having more structure in his day and that this would be much better than just going to respite. -Discussed crack cocaine abuse. Patient said that he used to use crack cocaine daily but since went to time he significantly cut down and now only uses once every week and a half, proud of himself for having cut down his use. -Regarding diabetes, grant writer reviewed hemoglobin A1c and though it is improved from 2 years ago, it is up a little since months ago. He says that he forgets a lot to check it and only checks it about twice a day. He is agreeable to consult to assess medication regimen 07/02: pt reports feeling good today; he reports improved sleep. denies any issues at this time. guarded and brief during assessment. denies SI/HI/VH/AH. encouraged to attend groups. 07/03- CTP advised better dietary discretion and given prn insulin 07/04 - pt may have to revoke 3d if he wants to stay another day- CTP Plan: CV Q 15 minute checks Increased Zoloft to 150mg Hospitalist consult to assess medication for diabetes Patient educated on: medical condition and other (dc planning) Informed Consent: understands and further education needed Reason for continued inpatient stay Substantial Risk for: rapid decompensation and med/psych decompensation Time Spent With Patient Time: Total time managing care of this patient today ____ minutes.
[2024-07-04] MEDS: Sertraline HCL 50 MG TABLET 150 MG PO (08:39)
[2024-07-04] MEDS: Insulin Glargine,Hum.rec.anlog 100 UNIT/ML 10 ML VIAL 24 UNIT SUBCUT (08:41)
[2024-07-04] MEDS: Insulin Lispro 100 UNIT/ML 3 ML VIAL SUBCUT ×4 (08:42→22:00)
[2024-07-04 12:08] LABS: Glucose, Whole Blood 289 mg/dL (60-115)
[2024-07-04 17:04] LABS: Glucose, Whole Blood 216 mg/dL (60-115)
[2024-07-04 19:51] VITALS: BP 138/79; PULSE 93; RESP 16; TEMP 36.5; O2SAT 97
[2024-07-04 21:44] LABS: Glucose, Whole Blood 306 mg/dL (60-115)
[2024-07-04] MEDS: hydrOXYzine HCL 25 MG TABLET PO (22:01)
[2024-07-04] MEDS: traZODone HCL 50 MG TABLET PO (22:01)
[2024-07-05 08:00] VITALS: BP 119/74; PULSE 85; RESP 16; TEMP 36.4; O2SAT 100
[2024-07-05 08:02] LABS: Glucose, Whole Blood 136 mg/dL (60-115)
[2024-07-05] MEDS: Sertraline HCL 50 MG TABLET 150 MG PO (08:09)
[2024-07-05] MEDS: Insulin Glargine,Hum.rec.anlog 100 UNIT/ML 10 ML VIAL 24 UNIT SUBCUT (08:26)
--- NOTE | 2024-07-05 09:17 | HO.PSYCHPN ---
Subjective Subjective Date of Service: 07/05/24 Reason For Visit: Recurrent Major Depression Diagnostics Vital Signs (24Hr): Vital Signs - 24 hr 07/04/24 19:51 Temperature 97.7 F Pulse Rate 93 Respiratory Rate 16 Blood Pressure 138/79 Pulse Oximetry 97 Oxygen Delivery Method Room Air BMI result Body Mass Index 19.6 Labs 06/28/24 14:08 06/28/24 14:08 Labs: Laboratory Results - last 48 hr 07/03/24 07/03/24 07/03/24 11:56 14:02 16:52 POC Glucose 325 H 465 H* 252 H 07/03/24 07/04/24 07/04/24 19:50 07:45 12:03 POC Glucose 143 H 162 H 289 H 07/04/24 07/04/24 07/05/24 17:00 21:39 07:58 POC Glucose 216 H 306 H 136 H Medications Medications Current Medications Acetaminophen (Acetaminophen 325 Mg Tablet) 650 mg PO Q6H PRN PRN Reason: Headache/Pain, Scale 1-10 Al Hydroxide/Mg Hydroxide (Magnesium Hydrox/Alum Hydrox 30 Ml Oral.Susp) 30 ml PO Q6H PRN PRN Reason: Heartburn/Nausea Dextrose (Dextrose 50 % 25 Gm/50 Ml Syringe) 25 gm IVPUSH Q15M PRN; Protocol PRN Reason: per Hypoglycemia Standing Ord. Glucose (Glucose Gel 15 Gm Gel..Gram.) 15 gm PO Q15M PRN; Protocol PRN Reason: per Hypoglycemia Standing Ord. Hydroxyzine HCl (Hydroxyzine Hcl 25 Mg Tablet) 25 mg PO Q6H PRN PRN Reason: mild anxiety Last Admin: 07/04/24 22:01 Dose: 25 mg Insulin Glargine (Insulin Glargine,Hum.Rec.Anlog 100 Unit/Ml 10 Ml Vial) 24 unit SUBCUT DAILY [facility] Last Admin: 07/05/24 08:26 Dose: 24 unit Insulin Human Lispro (Insulin Lispro 100 Unit/Ml 3 Ml Vial) 0 unit SUBCUT QIDACHS [facility]; Protocol Last Admin: 07/05/24 08:28 Dose: Not Given Magnesium Hydroxide (Milk Of Magnesia 30 Ml Oral.Susp) 30 ml PO DAILY PRN PRN Reason: Constipation Nicotine Polacrilex (Nicotine Polacrilex 2 Mg Gum) 4 mg BUCCAL Q2H PRN PRN Reason: Nicotine Cravings Sertraline HCl (Sertraline Hcl 50 Mg Tablet) 150 mg PO DAILY [facility] Last Admin: 07/05/24 08:09 Dose: 150 mg Trazodone HCl (Trazodone Hcl 50 Mg Tablet) 50 mg PO BEDTIME MRX1 PRN PRN Reason: Insomnia Last Admin: 07/04/24 22:01 Dose: 50 mg Allergies Allergies Allergy/AdvReac Type Severity Reaction Status Date / Time No Known Allergies Allergy Verified 06/28/24 13:36 [No Known Allergies*] Assessment & Plan Assessment & Plan (1) Anxiety: Status: Acute Code(s): F41.9 - Anxiety disorder, unspecified (2) Cocaine use disorder: Status: Acute Code(s): F14.10 - Cocaine abuse, uncomplicated (3) Diabetes mellitus type 1, uncontrolled: Status: Acute Code(s): E10.65 - Type 1 diabetes mellitus with hyperglycemia Plan Pt is a 34 yo with hx of depression, anxiety who presents for what his therapist perceived as a suicidal comment. Pt says he was at his therapy appointment and was in a cranky mood... He told his therapist that he was going to go home and take some sleeping pills so he could just sleep and get his mind right however he says he not at all suicidal, never said he was and when asked denied any suicidality. Patient explains that about 6 months ago, in his therapist office he did say he was suicidal and had attempted suicide by overdosing with insulin; he said at that time he truly was suicidal, depressed and was ultimately psychiatrically admitted. 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 Patient says he understands this reaction but wishes that they were more forthcoming because they implied he was just going to the hospital to get checked out and never talked about inpatient admission. Patient reports over the past month he has been doing well, good mood, no depression or SI at all. Denies hx of trauma; Denies drug/alcohol use other than cannabis Formulation/clinical reasoning: Patient reports no recent bouts of depression but that he has had significant depressive episodes since teenage years. Again no current SI but says that SI thoughts will pop up now and then but he is able to tell the difference between when there does fleeting and he is being emotionally reactive verses when he is actually having active SI. Patient has been on Zoloft 100 mg for 2-3 months; given his ongoing propensity for emotional reactivity he agrees to increase it to 150. 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 Patient acknowledged that he told his therapist that he was going to go home and take sleeping pills and did not care if he woke up or ... Patient says he was never actually suicidal but wanted to test his therapist in a way, want to see if he would be worried or what his reaction would be. He said he wanted the therapist to be concerned but not to go so far as to get him hospitalized. Upon further reflection patient said that he was hoping his therapist would send him to respite because he was tired of being at his house all the time and needed a break. Patient went on to share that he is lonely at home, that he never leaves the house, has no friends; patient agree that he could use help having more structure in his day and that this would be much better than just going to respite. -Discussed crack cocaine abuse. Patient said that he used to use crack cocaine daily but since went to time he significantly cut down and now only uses once every week and a half, proud of himself for having cut down his use. -Regarding diabetes, advertising copy writer reviewed hemoglobin A1c and though it is improved from 2 years ago, it is up a little since months ago. He says that he forgets a lot to check it and only checks it about twice a day. He is agreeable to consult to assess medication regimen 07/02: pt reports feeling good today; he reports improved sleep. denies any issues at this time. guarded and brief during assessment. denies SI/HI/VH/AH. encouraged to attend groups. 07/03- CTP advised better dietary discretion and given prn insulin 07/04 - pt may have to revoke 3d if he wants to stay another day- CTP Plan: CV Q 15 minute checks Increased Zoloft to 150mg Hospitalist consult to assess medication for diabetes Time Spent With Patient Time: Total time managing care of this patient today ____ minutes.
--- NOTE | 2024-07-05 11:22 | P.DS_ITS ---
DS: Providers Provider Date of Service: 07/05/24 Date of admission: 06/29/24 16:34 Date of discharge: 07/05/24 Primary care physician: None Physician Attending physician on admission: Brian Peñaloza Consults: 07/01/24 11:42 Consult to Hospitalist Routine Comment: Consulting Provider: [facility] Hospital[facility] Reason For Exam: add antiglycemic? type I Attending physician on discharge: Brian Peñaloza DS: Diagnosis Discharge Diagnosis (1) Anxiety: Status: Acute (2) Cocaine use disorder: Status: Acute (3) Diabetes mellitus type 1, uncontrolled: Status: Acute DS: Medications Discharge Medications Home Medications: Previous Rx's ?Medication ?Instructions ?Recorded insulin degludec 200 unit/mL (3 24 unit (0.12 mL) subcut DAILY 05/18/24 mL) subcutaneous pen (Tresiba days #6 mL FlexTouch U-200 insulin) insulin lispro 100 unit/mL See Rx Instructions subcut TID 05/18/24 subcutaneous pen days #12 mL hydroxyzine HCl 25 mg tablet 25 mg PO Q6H PRN mild anxiety 07/05/24 days #60 tabs sertraline 100 mg tablet 150 mg (1.5 x 100 mg) PO QAM 30 07/05/24 days #45 tabs trazodone 100 mg tablet 100 mg PO BEDTIME PRN for insomnia 07/05/24 days #90 tabs Mental Status Exam Mental Status Exam Narrative: Pt is alert and oriented; behavior is cooperative, friendly and calm; patient is not in distress; dressed in casual attire, wearing a hat, lip rings, adequate hygiene and grooming; mood is described as good and affect congruent; eye contact appropriate; Speech is normal rate, volume and prosody and not pressured; no psychomotor agitation/retardation present; thought process is organized and goal directed; Thought content is on discharge; otherwise pert inent to relevant topics and without any delusional content, paranoid ideations or grandiosity; denies any SI/HI. Denies AVH and there is no evidence of perceptual disturbance. Patients insight and judgment appear intact. Data Data Completed and Pending Completed studies during hospitalization [Text1]: 06/28/24 06/28/24 06/28/24 14:08 14:09 15:49 WBC 8.2 RBC 5.02 D Hgb 14.0 D Hct 43.6 D MCV 86.9 MCH 27.9 MCHC 32.1 RDW 13.2 Plt Count 193 D MPV 12.0 Immature Gran % (Auto) 0.5 H Neut % (Auto) 71.1 Lymph % (Auto) 18.4 L [place] % (Auto) 7.3 Eos % (Auto) 2.2 Baso % (Auto) 0.5 Lymph # (Auto) 1.5 [place] # (Auto) 0.6 Eos # (Auto) 0.2 Baso # (Auto) 0.0 Abs Immat Gran (auto) 0.04 H Absolute Neuts (auto) 5.8 Absolute Nucleated RBC 0.000 Nucleated RBC % (auto) 0.0 Sodium 136 Potassium 4.8 D Chloride 101 Carbon Dioxide 28 Anion Gap 12 BUN 8 L Creatinine 0.70 Estim Creat Clear Calc 125.1 Estimated GFR > 60 POC Glucose Random Glucose 249 H Estimat Average Glucose Hemoglobin A1c % Calcium 9.6 D Magnesium Total Bilirubin 0.3 AST 18 ALT 17 Alkaline Phosphatase 75 Total Protein 6.8 Albumin 3.8 Triglycerides Cholesterol LDL Cholesterol, Calc HDL Cholesterol Vitamin B12 Folate TSH Free T4 Urine Color Yellow Urine Appearance Clear Urine pH 7.0 Ur Specific [place] 1.020 Urine Protein Negative Urine Glucose (UA) 500 H Urine Ketones Negative Urine Blood Negative Urine Nitrite Negative Ur Leukocyte Esterase Negative Urine Opiates Screen Not Detected Ur Buprenorphine Scrn Not Detected Ur Oxycodone Screen Not Detected Urine Methadone Screen Not Detected Urine Fentanyl Screen Not Detected Ur Barbiturates Screen Not Detected Ur Phencyclidine Scrn Not Detected Ur Amphetamines Screen Not Detected U Benzodiazepines Scrn Not Detected Urine Cocaine Screen POSITIVE H U Marijuana (THC) Screen POSITIVE H Ethyl Alcohol < 10 Influenza Type A (PCR) NEGATIVE Influenza Type B (PCR) NEGATIVE RSV RNA Qual (PCR) NEGATIVE SARS-CoV-2 RNA (RT-PCR) NEGATIVE 06/28/24 06/29/24 06/29/24 21:00 07:05 12:59 WBC RBC Hgb Hct MCV MCH MCHC RDW Plt Count MPV Immature Gran % (Auto) Neut % (Auto) Lymph % (Auto) [place] % (Auto) Eos % (Auto) Baso % (Auto) Lymph # (Auto) [place] # (Auto) Eos # (Auto) Baso # (Auto) Abs Immat Gran (auto) Absolute Neuts (auto) Absolute Nucleated RBC Nucleated RBC % (auto) Sodium Potassium Chloride Carbon Dioxide Anion Gap BUN Creatinine Estim Creat Clear Calc Estimated GFR POC Glucose 255 H 244 H 289 H Random Glucose Estimat Average Glucose Hemoglobin A1c % Calcium Magnesium Total Bilirubin AST ALT Alkaline Phosphatase Total Protein Albumin Triglycerides Cholesterol LDL Cholesterol, Calc HDL Cholesterol Vitamin B12 Folate TSH Free T4 Urine Color Urine Appearance Urine pH Ur Specific [place] Urine Protein Urine Glucose (UA) Urine Ketones Urine Blood Urine Nitrite Ur Leukocyte Esterase Urine Opiates Screen Ur Buprenorphine Scrn Ur Oxycodone Screen Urine Methadone Screen Urine Fentanyl Screen Ur Barbiturates Screen Ur Phencyclidine Scrn Ur Amphetamines Screen U Benzodiazepines Scrn Urine Cocaine Screen U Marijuana (THC) Screen Ethyl Alcohol Influenza Type A (PCR) Influenza Type B (PCR) RSV RNA Qual (PCR) SARS-CoV-2 RNA (RT-PCR) 06/29/24 06/29/24 06/30/24 18:14 20:54 07:32 WBC RBC Hgb Hct MCV MCH MCHC RDW Plt Count MPV Immature Gran % (Auto) Neut % (Auto) Lymph % (Auto) [place] % (Auto) Eos % (Auto) Baso % (Auto) Lymph # (Auto) [place] # (Auto) Eos # (Auto) Baso # (Auto) Abs Immat Gran (auto) Absolute Neuts (auto) Absolute Nucleated RBC Nucleated RBC % (auto) Sodium Potassium Chloride Carbon Dioxide Anion Gap BUN Creatinine Estim Creat Clear Calc Estimated GFR POC Glucose 311 H 176 H Random Glucose Estimat Average Glucose 197 Hemoglobin A1c % 8.5 H Calcium Magnesium 1.8 Total Bilirubin AST ALT Alkaline Phosphatase Total Protein Albumin Triglycerides 175 H Cholesterol 266 H LDL Cholesterol, Calc 166 H HDL Cholesterol 65 Vitamin B12 510 Folate 12.4 TSH 3.91 Free T4 1.13 Urine Color Urine Appearance Urine pH Ur Specific [place] Urine Protein Urine Glucose (UA) Urine Ketones Urine Blood Urine Nitrite Ur Leukocyte Esterase Urine Opiates Screen Ur Buprenorphine Scrn Ur Oxycodone Screen Urine Methadone Screen Urine Fentanyl Screen Ur Barbiturates Screen Ur Phencyclidine Scrn Ur Amphetamines Screen U Benzodiazepines Scrn Urine Cocaine Screen U Marijuana (THC) Screen Ethyl Alcohol Influenza Type A (PCR) Influenza Type B (PCR) RSV RNA Qual (PCR) SARS-CoV-2 RNA (RT-PCR) 06/30/24 06/30/24 06/30/24 07:43 12:16 17:12 WBC RBC Hgb Hct MCV MCH MCHC RDW Plt Count MPV Immature Gran % (Auto) Neut % (Auto) Lymph % (Auto) [place] % (Auto) Eos % (Auto) Baso % (Auto) Lymph # (Auto) [place] # (Auto) Eos # (Auto) Baso # (Auto) Abs Immat Gran (auto) Absolute Neuts (auto) Absolute Nucleated RBC Nucleated RBC % (auto) Sodium Potassium Chloride Carbon Dioxide Anion Gap BUN Creatinine Estim Creat Clear Calc Estimated GFR POC Glucose 345 H 382 H* 246 H Random Glucose Estimat Average Glucose Hemoglobin A1c % Calcium Magnesium Total Bilirubin AST ALT Alkaline Phosphatase Total Protein Albumin Triglycerides Cholesterol LDL Cholesterol, Calc HDL Cholesterol Vitamin B12 Folate TSH Free T4 Urine Color Urine Appearance Urine pH Ur Specific [place] Urine Protein Urine Glucose (UA) Urine Ketones Urine Blood Urine Nitrite Ur Leukocyte Esterase Urine Opiates Screen Ur Buprenorphine Scrn Ur Oxycodone Screen Urine Methadone Screen Urine Fentanyl Screen Ur Barbiturates Screen Ur Phencyclidine Scrn Ur Amphetamines Screen U Benzodiazepines Scrn Urine Cocaine Screen U Marijuana (THC) Screen Ethyl Alcohol Influenza Type A (PCR) Influenza Type B (PCR) RSV RNA Qual (PCR) SARS-CoV-2 RNA (RT-PCR) 06/30/24 07/01/24 07/01/24 20:11 07:44 12:11 WBC RBC Hgb Hct MCV MCH MCHC RDW Plt Count MPV Immature Gran % (Auto) Neut % (Auto) Lymph % (Auto) [place] % (Auto) Eos % (Auto) Baso % (Auto) Lymph # (Auto) [place] # (Auto) Eos # (Auto) Baso # (Auto) Abs Immat Gran (auto) Absolute Neuts (auto) Absolute Nucleated RBC Nucleated RBC % (auto) Sodium Potassium Chloride Carbon Dioxide Anion Gap BUN Creatinine Estim Creat Clear Calc Estimated GFR POC Glucose 343 H 335 H 380 H* Random Glucose Estimat Average Glucose Hemoglobin A1c % Calcium Magnesium Total Bilirubin AST ALT Alkaline Phosphatase Total Protein Albumin Triglycerides Cholesterol LDL Cholesterol, Calc HDL Cholesterol Vitamin B12 Folate TSH Free T4 Urine Color Urine Appearance Urine pH Ur Specific [place] Urine Protein Urine Glucose (UA) Urine Ketones Urine Blood Urine Nitrite Ur Leukocyte Esterase Urine Opiates Screen Ur Buprenorphine Scrn Ur Oxycodone Screen Urine Methadone Screen Urine Fentanyl Screen Ur Barbiturates Screen Ur Phencyclidine Scrn Ur Amphetamines Screen U Benzodiazepines Scrn Urine Cocaine Screen U Marijuana (THC) Screen Ethyl Alcohol Influenza Type A (PCR) Influenza Type B (PCR) RSV RNA Qual (PCR) SARS-CoV-2 RNA (RT-PCR) 07/01/24 07/01/24 07/02/24 17:11 21:22 08:04 WBC RBC Hgb Hct MCV MCH MCHC RDW Plt Count MPV Immature Gran % (Auto) Neut % (Auto) Lymph % (Auto) [place] % (Auto) Eos % (Auto) Baso % (Auto) Lymph # (Auto) [place] # (Auto) Eos # (Auto) Baso # (Auto) Abs Immat Gran (auto) Absolute Neuts (auto) Absolute Nucleated RBC Nucleated RBC % (auto) Sodium Potassium Chloride Carbon Dioxide Anion Gap BUN Creatinine Estim Creat Clear Calc Estimated GFR POC Glucose 281 H 100 414 H* Random Glucose Estimat Average Glucose Hemoglobin A1c % Calcium Magnesium Total Bilirubin AST ALT Alkaline Phosphatase Total Protein Albumin Triglycerides Cholesterol LDL Cholesterol, Calc HDL Cholesterol Vitamin B12 Folate TSH Free T4 Urine Color Urine Appearance Urine pH Ur Specific [place] Urine Protein Urine Glucose (UA) Urine Ketones Urine Blood Urine Nitrite Ur Leukocyte Esterase Urine Opiates Screen Ur Buprenorphine Scrn Ur Oxycodone Screen Urine Methadone Screen Urine Fentanyl Screen Ur Barbiturates Screen Ur Phencyclidine Scrn Ur Amphetamines Screen U Benzodiazepines Scrn Urine Cocaine Screen U Marijuana (THC) Screen Ethyl Alcohol Influenza Type A (PCR) Influenza Type B (PCR) RSV RNA Qual (PCR) SARS-CoV-2 RNA (RT-PCR) 07/02/24 07/02/24 07/02/24 12:31 17:17 20:34 WBC RBC Hgb Hct MCV MCH MCHC RDW Plt Count MPV Immature Gran % (Auto) Neut % (Auto) Lymph % (Auto) [place] % (Auto) Eos % (Auto) Baso % (Auto) Lymph # (Auto) [place] # (Auto) Eos # (Auto) Baso # (Auto) Abs Immat Gran (auto) Absolute Neuts (auto) Absolute Nucleated RBC Nucleated RBC % (auto) Sodium Potassium Chloride Carbon Dioxide Anion Gap BUN Creatinine Estim Creat Clear Calc Estimated GFR POC Glucose 194 H 266 H 191 H Random Glucose Estimat Average Glucose Hemoglobin A1c % Calcium Magnesium Total Bilirubin AST ALT Alkaline Phosphatase Total Protein Albumin Triglycerides Cholesterol LDL Cholesterol, Calc HDL Cholesterol Vitamin B12 Folate TSH Free T4 Urine Color Urine Appearance Urine pH Ur Specific [place] Urine Protein Urine Glucose (UA) Urine Ketones Urine Blood Urine Nitrite Ur Leukocyte Esterase Urine Opiates Screen Ur Buprenorphine Scrn Ur Oxycodone Screen Urine Methadone Screen Urine Fentanyl Screen Ur Barbiturates Screen Ur Phencyclidine Scrn Ur Amphetamines Screen U Benzodiazepines Scrn Urine Cocaine Screen U Marijuana (THC) Screen Ethyl Alcohol Influenza Type A (PCR) Influenza Type B (PCR) RSV RNA Qual (PCR) SARS-CoV-2 RNA (RT-PCR) 07/03/24 07/03/24 07/03/24 07:58 11:56 14:02 WBC RBC Hgb Hct MCV MCH MCHC RDW Plt Count MPV Immature Gran % (Auto) Neut % (Auto) Lymph % (Auto) [place] % (Auto) Eos % (Auto) Baso % (Auto) Lymph # (Auto) [place] # (Auto) Eos # (Auto) Baso # (Auto) Abs Immat Gran (auto) Absolute Neuts (auto) Absolute Nucleated RBC Nucleated RBC % (auto) Sodium Potassium Chloride Carbon Dioxide Anion Gap BUN Creatinine Estim Creat Clear Calc Estimated GFR POC Glucose 244 H 325 H 465 H* Random Glucose Estimat Average Glucose Hemoglobin A1c % Calcium Magnesium Total Bilirubin AST ALT Alkaline Phosphatase Total Protein Albumin Triglycerides Cholesterol LDL Cholesterol, Calc HDL Cholesterol Vitamin B12 Folate TSH Free T4 Urine Color Urine Appearance Urine pH Ur Specific [place] Urine Protein Urine Glucose (UA) Urine Ketones Urine Blood Urine Nitrite Ur Leukocyte Esterase Urine Opiates Screen Ur Buprenorphine Scrn Ur Oxycodone Screen Urine Methadone Screen Urine Fentanyl Screen Ur Barbiturates Screen Ur Phencyclidine Scrn Ur Amphetamines Screen U Benzodiazepines Scrn Urine Cocaine Screen U Marijuana (THC) Screen Ethyl Alcohol Influenza Type A (PCR) Influenza Type B (PCR) RSV RNA Qual (PCR) SARS-CoV-2 RNA (RT-PCR) 07/03/24 07/03/24 07/04/24 16:52 19:50 07:45 WBC RBC Hgb Hct MCV MCH MCHC RDW Plt Count MPV Immature Gran % (Auto) Neut % (Auto) Lymph % (Auto) [place] % (Auto) Eos % (Auto) Baso % (Auto) Lymph # (Auto) [place] # (Auto) Eos # (Auto) Baso # (Auto) Abs Immat Gran (auto) Absolute Neuts (auto) Absolute Nucleated RBC Nucleated RBC % (auto) Sodium Potassium Chloride Carbon Dioxide Anion Gap BUN Creatinine Estim Creat Clear Calc Estimated GFR POC Glucose 252 H 143 H 162 H Random Glucose Estimat Average Glucose Hemoglobin A1c % Calcium Magnesium Total Bilirubin AST ALT Alkaline Phosphatase Total Protein Albumin Triglycerides Cholesterol LDL Cholesterol, Calc HDL Cholesterol Vitamin B12 Folate TSH Free T4 Urine Color Urine Appearance Urine pH Ur Specific [place] Urine Protein Urine Glucose (UA) Urine Ketones Urine Blood Urine Nitrite Ur Leukocyte Esterase Urine Opiates Screen Ur Buprenorphine Scrn Ur Oxycodone Screen Urine Methadone Screen Urine Fentanyl Screen Ur Barbiturates Screen Ur Phencyclidine Scrn Ur Amphetamines Screen U Benzodiazepines Scrn Urine Cocaine Screen U Marijuana (THC) Screen Ethyl Alcohol Influenza Type A (PCR) Influenza Type B (PCR) RSV RNA Qual (PCR) SARS-CoV-2 RNA (RT-PCR) 07/04/24 07/04/24 07/04/24 12:03 17:00 21:39 WBC RBC Hgb Hct MCV MCH MCHC RDW Plt Count MPV Immature Gran % (Auto) Neut % (Auto) Lymph % (Auto) [place] % (Auto) Eos % (Auto) Baso % (Auto) Lymph # (Auto) [place] # (Auto) Eos # (Auto) Baso # (Auto) Abs Immat Gran (auto) Absolute Neuts (auto) Absolute Nucleated RBC Nucleated RBC % (auto) Sodium Potassium Chloride Carbon Dioxide Anion Gap BUN Creatinine Estim Creat Clear Calc Estimated GFR POC Glucose 289 H 216 H 306 H Random Glucose Estimat Average Glucose Hemoglobin A1c % Calcium Magnesium Total Bilirubin AST ALT Alkaline Phosphatase Total Protein Albumin Triglycerides Cholesterol LDL Cholesterol, Calc HDL Cholesterol Vitamin B12 Folate TSH Free T4 Urine Color Urine Appearance Urine pH Ur Specific [place] Urine Protein Urine Glucose (UA) Urine Ketones Urine Blood Urine Nitrite Ur Leukocyte Esterase Urine Opiates Screen Ur Buprenorphine Scrn Ur Oxycodone Screen Urine Methadone Screen Urine Fentanyl Screen Ur Barbiturates Screen Ur Phencyclidine Scrn Ur Amphetamines Screen U Benzodiazepines Scrn Urine Cocaine Screen U Marijuana (THC) Screen Ethyl Alcohol Influenza Type A (PCR) Influenza Type B (PCR) RSV RNA Qual (PCR) SARS-CoV-2 RNA (RT-PCR) 07/05/24 07:58 WBC RBC Hgb Hct MCV MCH MCHC RDW Plt Count MPV Immature Gran % (Auto) Neut % (Auto) Lymph % (Auto) [place] % (Auto) Eos % (Auto) Baso % (Auto) Lymph # (Auto) [place] # (Auto) Eos # (Auto) Baso # (Auto) Abs Immat Gran (auto) Absolute Neuts (auto) Absolute Nucleated RBC Nucleated RBC % (auto) Sodium Potassium Chloride Carbon Dioxide Anion Gap BUN Creatinine Estim Creat Clear Calc Estimated GFR POC Glucose 136 H Random Glucose Estimat Average Glucose Hemoglobin A1c % Calcium Magnesium Total Bilirubin AST ALT Alkaline Phosphatase Total Protein Albumin Triglycerides Cholesterol LDL Cholesterol, Calc HDL Cholesterol Vitamin B12 Folate TSH Free T4 Urine Color Urine Appearance Urine pH Ur Specific [place] Urine Protein Urine Glucose (UA) Urine Ketones Urine Blood Urine Nitrite Ur Leukocyte Esterase Urine Opiates Screen Ur Buprenorphine Scrn Ur Oxycodone Screen Urine Methadone Screen Urine Fentanyl Screen Ur Barbiturates Screen Ur Phencyclidine Scrn Ur Amphetamines Screen U Benzodiazepines Scrn Urine Cocaine Screen U Marijuana (THC) Screen Ethyl Alcohol Influenza Type A (PCR) Influenza Type B (PCR) RSV RNA Qual (PCR) SARS-CoV-2 RNA (RT-PCR) DS: Summary Hospital Course Hospital Course: Pt is a 34 yo with hx of depression, anxiety who presents for what his therapist perceived as a suicidal comment. Pt says he was at his therapy appointment and was in a cranky mood... He told his therapist that he was going to go home and take some sleeping pills so he could just sleep and get his mind right however he says he not at all suicidal, never said he was and when asked denied any suicidality. Patient explains that about 6 months ago, in his therapist office he did say he was suicidal and had attempted suicide by overdosing with insulin; he said at that time he truly was suicidal, depressed and was ultimately psychiatrically admitted. Patient thinks that because of this past event, his therapist and supervisor anodizing were over reactive. Patient says he understands this reaction but wishes that they were more forthcoming because they implied he was just going to the hospital to get checked out and never talked about inpatient admission. Patient reports over the past month he has been doing well, good mood, no depression or SI at all. Denies hx of trauma; Denies drug/alcohol use other than cannabis Formulation/clinical reasoning: Patient reports no recent bouts of depression but that he has had significant depressive episodes since teenage years. Again no current SI but says that SI thoughts will pop up now and then but he is able to tell the difference between when there does fleeting and he is being emotionally reactive verses when he is actually having active SI. Patient has been on Zoloft 100 mg for 2-3 months; given his ongoing propensity for emotional reactivity he agrees to increase it to 150. Will monitor and gather collateral regarding SI comments -denies drug use but see cocaine in [facility] Hospital course: On admission, patient denied any depression or anxiety and said that he never made any suicidal statement to his therapist; that his therapist over reacted and misinterpreted his words, saying that he only told his therapist who is going to take sleeping pills to go home and sleep. The following day however, Patient acknowledged that he did in fact make suicidal-type comment to his t herapist and is sharing this now since he figured that this director underwriter sales and community mental health social worker would find out anyway. Patient acknowledged that he told his therapist that he was going to go home and take sleeping pills and did not care if he woke up or ... Patient says he was never actually suicidal but wanted to test his therapist in a way, want to see if he would be worried or what his reaction would be. He said he wanted the therapist to be concerned but not to go so far as to get him hospitalized. Upon further reflection patient said that he was hoping his therapist would send him to respite because he was tired of being at his house all the time and needed a break. Patient went on to share that he is lonely at home, that he never leaves the house, has no friends; patient agreed that he could use help having more structure in his day and that this would be much better than just going to respite. He acknowledged that he at times would have thoughts that he did not really care if he woke up or not but he remained adamant that he did not have any actual SI at all. Still he agreed to increase Zoloft. -Discussed crack cocaine abuse. Patient said that he used cocaine the day bef ore admission which he says helps his mood; he is proud of himself to share that in the past he was using crack cocaine every day but for several months now he has significantly cut down and now only uses once every week and a half. Patient declined any substance abuse treatment or MAC. -Regarding diabetes, director underwriter sales reviewed hemoglobin A1c and though it is improved from 2 years ago, it is up a little since months ago. He says that he forgets a lot to check it and only checks it about twice a day. He is agreeable to consult to assess medication regimen Patient placed a 3 day notice. Patient was at baseline and remained in good behavioral and impulse control throughout his time in the unit and was appropriate with peers and staff; patient was engaged in treatment, friendly, social and attending groups. He remained without any SI at all, was eating and sleeping well and future oriented. Patient's 3 day notice came due. However on the day of discharge, patient asked if he could stay 1 more day. Human Resources Clerk and community mental health social worker met with him together and inquired but patient was vague; he was quiet for a bit and could only say that he thought maybe it would help but could give no other reason for it. As mentioned patient was at baseline; he was not in imminent risk for harm to self or others and was appropriate to return to the community for treatment. Human Resources Clerk and community mental health social worker explained that patient does not meet criteria for inpatient level of care which he accepted. Medications: Increased Zoloft to 150mg Time spent discussing smoking cessation with patient: 3 to 10 minutes Status at Discharge Functional status at discharge: independent ambulation Overall status at discharge: patient is back to baseline Time Spent with Patient Time attestation: Total time managing care of this patient today __40__ minutes. Time spent: Greater than 30 minutes Specific discharge activities: Met with patient; discussed with team; charting; prescriptions Discharge Plan Discharge Anticipated Discharge Date/Time: 07/05/24 12:00 Patient Disposition: Home, Self-Care Discharge Diagnosis: MDD, recurrent Referrals: [facility]-Therapy with Ese Trinh [Other] - 1 Week (Ese will call you on Friday when you discharge to reschedule your appointment. Your scheduled appointments will restart for Friday at Noon on 07/12/24) [facility]- Medication Management with Jayant Murillo [Other] - 07/29/24 8:20 am (Telehealth appointment ) Physician,None [Primary Care Provider] - 1 Week Discharge Medications: New hydroxyzine HCl 25 mg Tablet 25 mg PO Q6H PRN (Reason: mild anxiety) 30 Days Qty: 60 0RF Continued trazodone 100 mg tablet 100 mg PO BEDTIME PRN (Reason: for insomnia) 30 Days Qty: 90 1RF insulin degludec [Tresiba FlexTouch U-200] 200 unit/mL (3 mL) insulin pen 24 unit subcut DAILY 30 Days Qty: 6 6RF insulin lispro 100 unit/mL insulin pen See Rx Instructions subcut TID 30 Days Qty: 12 4RF Rx Instructions: subcutaneously 3 times a day with meals 80-150 4 units 151-200 7 units 201-250 10units 250-300 12-14 units over 300 14 units Changed sertraline 100 mg tablet 150 mg PO QAM 30 Days Qty: 45 0RF Discharge Orders: Discharge Order (Routine); Ordered 07/05/24 Ordered By: Brian Peñaloza Diet: Diabetic diet Activity on Discharge: As tolerated Stand Alone Forms: Patient Portal Discharge page, Community Support Print Language: Scottish Care Plan Goals: Maintain mood and safe behaviors Take medications as prescribed Continue to pursue sobriety Practice coping skills Continue with outpatient providers and reach out to them as needed Health Concerns: Mood stability and behaviors Sobriety Diabetes Plan of Treatment: Follow up with your PCP, psychiatric provider and other outpatient providers regarding above concerns Take medications as prescribed Assessment: Risk assessment at time of discharge:? Patient was interviewed prior to discharge and found to be fully oriented and without any SI or HI. Patient has improved insight and judgment and wants to continue treatment. Patient is not in imminent risk of harm to self or others and has a safety plan that includes presenting to the closest ER or calling 911 if feeling unsafe.? Patient has been observed closely by nursing and unit staff throughout admission; patient has not engaged in any behaviors that suggest dangerousness to self or others and has demonstrated appropriate behaviors and impulse control Discharge Date/Time: 07/05/24 12:25
== END 2024-07-05 12:25 | disposition home or self-care (01) | DRG 751 ==
LOC: HO.ED 06-29 14:52 → HO.PM5 06-29 16:41
PROVIDERS: Registered Nurse Emergency; Admitting Provider Clinical Nurse Specialist Psychiatric/Mental Health, Adult; Emergency Provider Emergency Medicine; Visit Provider Psychiatry & Neurology Psychiatry
DX: F33.9 Major depressive disorder, recurrent, unspecified (principal); R45.851 Suicidal ideations; F41.9 Anxiety disorder, unspecified; E10.65 Type 1 diabetes mellitus with hyperglycemia; Z20.822 Contact with and (suspected) exposure to COVID-19; Z87.891 Personal history of nicotine dependence; Z79.899 Other long term (current) drug therapy
CPT/HCPCS: 0241U; 36415; 80053; 80061; 80307; 81003; 82607; 82746; 82947; 83036; 83735; 84439; 84443; 85025; 93005; 99285; S9485

== ENCOUNTER → 2024-06-29 07:54 | Outpatient (BNV) | payer OTHER, SELFPAY | PROVIDERS: Emergency Provider Emergency Medicine; Visit Provider Internal Medicine Cardiovascular Disease | DX: Z13.6 Encounter for screening for cardiovascular disorders (principal) | CPT/HCPCS: 93010 ==

== ENCOUNTER → 2024-06-29 16:34 | Outpatient (BNV) | payer OTHER, SELFPAY | PROVIDERS: Admitting Provider Clinical Nurse Specialist Psychiatric/Mental Health, Adult; Emergency Provider Emergency Medicine; Visit Provider Psychiatry & Neurology Psychiatry | DX: F14.10 Cocaine abuse, uncomplicated (principal); F41.9 Anxiety disorder, unspecified; E10.65 Type 1 diabetes mellitus with hyperglycemia | CPT/HCPCS: 90792; 99231; 99232 ==

== ENCOUNTER 2024-07-27 13:52 | Outpatient (AMB) | payer OTHER, SELFPAY ==
[2024-07-27 13:58] VITALS: BP 112/70; BMI 20.7
--- NOTE | 2024-07-27 13:58 | A.OFFVIS_ITS ---
Vital Signs 07/27/24 13:58 Height 5 ft 6 in Weight 128 lb BMI 20.7 BP 112/70 Blood Pressure Location Lt brachial Position Sitting Intake Visit Reasons: follow up s/p [facility] 06/23/24 Intake Note: Pt presents to the office today for a follow up s/p [facility] 06/23/24. Allergies No Known Allergies [No Known Allergies*] Allergy (Verified 07/27/24 13:59) HPI HPI follow up s/p [facility] 06/23/24: Details: Keira is presenting today for a follow up to [facility], performed on 06/23/24. He continues to endorse numbness/tingling in his bilateral feet and lower legs. He states the swelling has gotten much better. He states the numbness/tingling has not worsened, it just has not gone away. He has no new concerns today. [facility] Medical History Suicidal ideation Anxiety Suicide attempt Nicotine dependence MDD (major depressive disorder), severe Cocaine use disorder Noncompliance Dental decay Hyperlipidemia LDL goal <100 Surgical History No history of previous surgery Family History Maternal Grandmother Diabetes, type I Social History Household Members: Family Housing: House Housing Other:: rents a room Do you presently have visiting nurse or other home services: No Unable to assess alcohol history related to: Unknown Alcohol intake: never Patient Tobacco Use Status: Former Tobacco user Tobacco use type: Cigarette Cigarettes Per Day: 5 e-Cigarette/Vaping Use: Currently Using Second Hand Smoke Exposure: No Substance Use Type: Crack/Cocaine and Marijuana service: No Current occupational status: employed Sexual orientation: Straight/Heterosexual Cognitive needs: No Hearing needs: No Vision needs: No Review of Systems Const Reports as per HPI and Denies weakness ENT Reports Normal hearing present and Denies dizziness Card Reports as per HPI, Denies chest pain, Denies chest pain at rest, Denies chest pain with activity, Denies dyspnea and Denies dyspnea on exertion Resp Reports as per HPI, Denies cough, Denies dyspnea and Denies dyspnea on exertion GI Reports as per HPI, Denies abdominal pain, Denies nausea and Denies vomiting Musc Denies numbness Skin/Breast Reports as per HPI, Denies erythema and Denies wounds Neuro Reports Normal hearing present, Denies dizziness, Denies numbness, Denies Sensory deficit (Neuro) and Denies weakness Psych Reports no additional complaints Endo Reports no additional complaints Physical Exam Vital Signs: Last Vital Signs BP 112/70 07/27/24 13:58 BMI result Body Mass Index 20.7 Const General: healthy appearing and no acute distress Orientation/consciousness: patient oriented x3 HEENT Head: Yes normal to inspection Ears: hearing grossly normal bilaterally Mouth: Normal oral and palatal mucosa present Resp Effort & Inspection: normal respiratory effort and able to speak in complete sentences Auscultation: clear to auscultation bilaterally Cardio Jugular venous distension: no JVD Rate: regular rate Rhythm: regular rhythm Heart sounds: S1 normal heart sound present and S2 normal heart sound present Bruits: no abdominal aortic bruits, no carotid bruits, no femoral bruits and no renal bruits Peripheral pulses: Peripheral pulses 2+ throughout GI Inspection: Yes normal to inspection Palpation (GI): No Abdominal aortic bruit present Skin General skin exam: no rashes or lesions noted Wounds: no wounds Hair: normal Neuro General: patient oriented x3 Cranial nerves: Yes Normal hearing present Cognition (Neuro): normal cognition Gait exam (Neuro): Normal gait present Motor exam (neuro): 5/5 motor strength present throughout Sensory Exam: No Sensory deficit (Neuro) Extrem Other: Bilateral lower extremities: No peripheral edema noted. No discoloration noted. No varicosities or tortuosities noted. General: Yes normal to inspection, Yes full ROM, Yes capillary refill normal and Yes normal gait Results Reviewed Results Reviewed: Brief summary of venous insufficiency testing is as follows: right great saphenous vein: negative right small saphenous vein: negative right accessory vein: none present left great saphenous vein: negative except at the ankle, with vein of 0.2cm and reflux of 2464ms. left small saphenous vein: negative left accessory vein: none present Please note there is no evidence of any venous aneurysms or significant tortuosity Assessment & Plan Assessment & Plan (1) Varicose veins of both lower extremities with inflammation: Code(s): I83.11 - Varicose veins of right lower extremity with inflammation; I83.12 - Varicose veins of left lower extremity with inflammation Category: Medical Plan: Keira is presenting today for a follow up to [facility], performed on 06/23. He continues to endorse numbness/tingling in his feet and lower extremities but s tates the swelling has gone away and not come back. US is negative except for a very small portion of the left GSV at the ankle, too small for any procedures. We discussed that he should reach out to his PCP for further evaluation of the numbness/tingling of his feet/lower legs. We discussed the importance of continuing with BG control as well as healthy, well balanced diet. We discussed to wear compression socks, elevate, and physical activity when he can. We discussed that he can reach out to us if anything changes or he has any vascular concerns. Thank you for allowing us to participate in the patient's care. If there are any questions or concerns, please do not hesitate to reach out to us. Coding Level of Care Code Est Pt Level 4 (99704) Diagnoses Varicose veins of both lower extremities with inflammation I83.11; I83.12 Comment review of venous insufficiency US
--- OUTSIDE RECORDS SUMMARY | 2024-07-27 15:15 | XMS_ITS | Clinical Summary ---
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
== END 2024-07-27 14:07 | disposition home or self-care (01) ==
LOC: HO.HVS 13:53
PROVIDERS: Visit Provider Physician Assistant Surgical
DX: I83.11 Varicose veins of right lower extremity with inflammation (principal); I83.12 Varicose veins of left lower extremity with inflammation
CPT/HCPCS: 99214

== ENCOUNTER → 2024-07-27 13:52 | Outpatient (BNVA) | payer OTHER, SELFPAY | PROVIDERS: Visit Provider Physician Assistant Surgical | DX: I83.11 Varicose veins of right lower extremity with inflammation (principal); I83.12 Varicose veins of left lower extremity with inflammation | CPT/HCPCS: 99212 ==

== ENCOUNTER 2024-08-20 14:25 | Outpatient (AMB) | payer OTHER, SELFPAY ==
--- NOTE | 2024-08-20 08:02 | A.OFFVIS_ITS ---
Vital Signs 08/20/24 14:27 Height 5 ft 6 in Weight 125 lb 10.616 oz BMI 20.3 BP 114/78 Blood Pressure Location Rt brachial Position Sitting Pulse 100 Pulse Source Pulse Oximeter Intake Visit Reasons: DM Intake Note: Patient presents today for a follow-up on Type 1 Diabetes Mellitus: Last Diabetic eye exam was on: DUE Last Podiatry exam was on: Patient does not see a Test Baker Most recent HbA1c: 8.6%, 08/20/2024 Random Glucose- 84 mg/dL, Today, Travel Ot Required: No Accompanied by: Self / Same As Patient Allergies No Known Allergies [No Known Allergies*] Allergy (Verified 08/20/24 14:32) HPI Comments Details: Patient is 34 yo male with DM type 1 diagnosed at age 10 who presents for management of diabetes. He was last seen 06/25/24 at which time he had a low glucose in the office. A1C 08/20/2024 8.6 %, 05/18/24 9.3% 01/29/24 9.1%, 8.9% on 10/06/23 He has had a severe hypoglycemic episode after he tried to commit suicide by insulin injection. He is now seeing the therapist every week and denies current suicidal ideation. He sees the psychiatrist regularly. h He feels his mood is somewhat improved when he gets depressed he skips doses of insulin he is typically at home for meals but if he is out he skips a dose of insulin Diabetes medications: Tresiba 24 units Lispro t.i.d. before meals less than 80 treat, eat meal and then take 2 units 80-150 4 units 151-200 7 units 201 -250 10 units 250-300 12-14 units over 300 14 units Freestyle average glucose: 225 14 day continuous glucose monitor report reviewed Glucose Managment indicator 8.7% Days with CGM data 96% TIme in ranges: 42 % very high (above 250) 15 % high (181-250) 35 % in range (70-180] 5 % low (69-55) 4 % very low (below 54) 51.7Standard Deviation Interpretation ; he has a clear pattern. If he does not take his insulin he stays in tge 300+ range. a few days where he took his insulin consistently his numbers were in good control if he has a low sugar he drinks what is probably equivalent to 120 carbs of orange juice. then his sugars increase He denies alcohol use. Uses cannibis. No street drugs. Has neuropathy was advised to restart gabapentin by his PCP Symptoms: Cramping in feet, numbness which he feels is better when his sugars are in normal range Hypoglycemia:0cc Eye exam: yrs ago needs to make appt needs new provider No Nephropathy: 10/14/2023 albumin less than 5.0 09/07/2023 eGFR>60 Exercise: little He smokes 3 cigarettes per day and does vape does not carry sugar source despite recommendation Has had recent DKA symptoms when he didn't take insulin. He did not test but was symptomatic He was on an insulin pump in his teen years. He has been on a VGo insulin mechanical patch in the past He was unable to tolerate atorvastin side effect: diarrhea PFSH Medical History Suicidal ideation Anxiety Suicide attempt Nicotine dependence MDD (major depressive disorder), severe Cocaine use disorder Noncompliance Dental decay Hyperlipidemia LDL goal <100 Surgical History No history of previous surgery Family History Maternal Grandmother Diabetes, type I Social History Household Members: Family Housing: House Housing Other:: rents a room Do you presently have visiting nurse or other home services: No Unable to assess alcohol history related to: Unknown Alcohol intake: never Patient Tobacco Use Status: Former Tobacco user Tobacco use type: Cigarette Cigarettes Per Day: 5 e-Cigarette/Vaping Use: Currently Using Second Hand Smoke Exposure: No Substance Use Type: Crack/Cocaine and Marijuana service: No Current occupational status: employed Sexual orientation: Straight/Heterosexual Cognitive needs: No Hearing needs: No Vision needs: No Physical Exam Vital Signs: Last Vital Signs Pulse 100 08/20/24 14:27 BP 114/78 08/20/24 14:27 BMI result Body Mass Index 20.3 Const Other: normal affect. maintains good eye contact in his engaged in conversation. Absence of Cushingoid features. Absence of acromegalic features. Neck exam reveals nl size thyroid about 15 gms. No thyroid nodules palpable. Heart S1 S2, Reg R/R. No M/R G. Skin exam reveals absence of vitiligo or acanthosis nigricans. no edema. Visual exam of foot performed. No ulcerations or open lesions. No inter digit maceration or fissuring. No onychomycosis, no callouses. Sensation absent to monofilament exam. Vibratory sensation is absent with 128 Hz tuning fork. nails elongated but not thickened. pulses positive Results AMB Hemoglobin A1c AMB Hemoglobin A1c 8.6 % Last Edit by CALOS Wilson on 08/20/24 14:43 Results Reviewed Results Reviewed: Laboratory Last Values Glucose (Clinic) 84 mg/dL (60-115) 08/20/24 14:30 Hgb A1c (Clinic) 8.6 % (4.0-6.0) H 08/20/24 14:34 Assessment & Plan Assessment & Plan (1) Diabetes mellitus type 1, uncontrolled: Comment: since age 10 Code(s): E10.65 - Type 1 diabetes mellitus with hyperglycemia Category: Medical Plan: type 1 diabetic with neuropathy, multiple prior suicide attempts through insulin injection and a longstanding history of poorly controlled diabetes. on careful review of his sensor download his sugars are in reasonable control if he takes his insulin. when he skips it he rises to 300. we discussed the importance of taking his insulin 4 times daily. he has been on a V-Go in the past and agrees to go on this. an order was sent along with a bottle of insulin. he is aware that he will not need to take long-acting insulin once he is on the V Go. he would like to go on an insulin pump and I believe this would be a good transition. my fear is that when he has depressive episodes he would have extreme difficulty managing an electronic pump. in depth reviewed how to treat low glucose. he is currently over treating. while he is on injections he will use his current sliding scale and Tresiba 24 units For Vgo 20 He will stop Tresiba and using the following scale: Less than 80, treat with 15 carb grams until over 80, eat meal, then take 1 click 80-100 1 click 101-150 2 clicks 151-200 3 clicks 201-250 4 clicks 251-300 6 clicks over 300 7 clicks Orders: Orders AMB Hemoglobin A1c Today E10.65 - Type 1 diabetes mellitus with hyperglycemia Patient Instructions: o Coding Diagnoses Diabetes mellitus type 1, uncontrolled E10.65
[2024-08-20 14:27] VITALS: BP 114/78; PULSE 100; BMI 20.3
--- OUTSIDE RECORDS SUMMARY | 2024-08-20 14:27 | XMS_ITS | Clinical Summary ---
Author Organization [facility] [employer] [facility] ity Address [address] [place] [address] Care Team Providers Care Fundraising Assistant Name Role Phone Unavailable Primary Care Provider [...]
[2024-08-20 14:35] LABS: Glucose, Whole Blood 84 mg/dL (60-115)
== END 2024-08-20 14:51 | disposition home or self-care (01) ==
LOC: HO.ENCR 14:25
PROVIDERS: PCP Internal Medicine; Visit Provider Nurse Practitioner Adult Health
DX: E10.65 Type 1 diabetes mellitus with hyperglycemia (principal)

== ENCOUNTER → 2024-08-20 14:25 | Outpatient (BNVA) | payer OTHER, SELFPAY | PROVIDERS: PCP Internal Medicine; Visit Provider Nurse Practitioner Adult Health | DX: E10.65 Type 1 diabetes mellitus with hyperglycemia (principal) | CPT/HCPCS: 82947; 83036; 99212 ==

== ENCOUNTER 2024-09-01 14:58 | Outpatient (AMB) | payer OTHER, SELFPAY ==
--- NOTE | 2024-09-01 15:00 | A.OFFVIS_ITS ---
Intake Vital Signs 3 09/01/24 15:20 Weight 128 lb 9 oz Intake Visit Reasons: T1DM Allergies No Known Allergies [No Known Allergies*] Allergy (Verified 08/20/24 14:32) HPI Comprehensive Diabetes Asmnt Most Recent Diabetes Results: 2 Cholesterol 266 mg/dL (<200) H 06/30/24 HDL Cholesterol 65 mg/dL (>40) 06/30/24 Triglycerides 175 mg/dL (<150) H 06/30/24 Creatinine 0.70 mg/dL (0.5-1.4) 06/28/24 Blood Urea Nitrogen 8 mg/dL (9-16) L 06/28/24 Sodium 136 mmol/L (135-145) 06/28/24 Potassium 4.8 mmol/L (3.3-5.1) 06/28/24 Chloride 101 mmol/L (96-108) 06/28/24 Carbon Dioxide 28 mmol/L (22-29) 06/28/24 Calcium 9.6 mg/dL (8.4-10.2) 06/28/24 AST 18 U/L (5-37) 06/28/24 ALT 17 U/L (0-40) 06/28/24 Total Protein 6.8 g/dL (6.5-8.0) 06/28/24 Albumin 3.8 g/dL (3.5-5.0) 06/28/24 [facility] Medical History Suicidal ideation Anxiety Suicide attempt Nicotine dependence MDD (major depressive disorder), severe Cocaine use disorder Noncompliance Dental decay Hyperlipidemia LDL goal <100 Surgical History No history of previous surgery Family History Maternal Grandmother Diabetes, type I Social History Household Members: Family Housing: House Housing Other:: rents a room Do you presently have visiting nurse or other home services: No Unable to assess alcohol history related to: Unknown Alcohol intake: never Patient Tobacco Use Status: Former Tobacco user Tobacco use type: Cigarette Cigarettes Per Day: 5 e-Cigarette/Vaping Use: Currently Using Second Hand Smoke Exposure: No Substance Use Type: Crack/Cocaine and Marijuana service: No Current occupational status: employed Sexual orientation: Straight/Heterosexual Cognitive needs: No Hearing needs: No Vision needs: No Assessment & Plan Assessment & Plan (1) Diabetes mellitus type 1, uncontrolled: Comment: since age 10 Code(s): E10.65 - Type 1 diabetes mellitus with hyperglycemia Plan: Personal Continuous Glucose Monitor: Patients CGM information reviewed, Patient is having significant amount of hypoglycemia. Patient reports that at night when his glucose level is high he takes Humalog 8 units so that he does not get woken up overnight to use the bathroom. Reviewed with patient the action of Humalog suggested to patient he reduce correction dose of Humalog from 8 units to 4 units. If he continues to have hypoglycemia with 4 units he should reduce to 2 units. Patient agreed to plan Reviewed with patient how to treat hypoglycemia with rule of 15s. Patient reports he lives with his mom and he has trained her how to use Baqsimi nasal spray. Patient also reports he has keto strips at home, patient does test when glucose is greater than 300 mg/dL. Patient denies ever being hospitalized with DKA. Patient is interested in using the CeQur insulin delivery patch. Message sent to [facility] [employer] to send prescription for CeQur insulin patch and for Eusebio 3 sensors Patient reports that he is out of glucose sensors and was given sample sensor at today's visit Reviewed how to interpret trend arrows Reminded patient that to check finger sticks if symptoms do not match sensor reading. Discussed lag time between finger stick and sensor data.? Patient able to insert sensor independently at home without issue.? Portions of this note were created using voice recognition software, please excuse any words or phrases that may have been misinterpreted. Patient Instructions: Baqsimi is a nasal spray that contains the hormone glucagon. Glucagon is the hormone that increases blood sugar by working on the liver to release glucose into the blood. Baqsimi should only be given if you are unable to treat hypoglycemia by taking oral intervention Giving the dose Baqsimi * Hold Device between fingers and thumb. Do not push Plunger yet. * Insert Tip gently in one nostril until finger(s) touch the outside of the nose. * Push Plunger firmly all the way in * Once dose has been administered, call EMS or provider * If after 15 minutes patient is still unable to treat hypoglycemia orally give 2nd dose if available The most common side effects of BAQSIMI include: ? nausea ? vomiting ? headache ? runny nose ? discomfort in your nose ? stuffy nose ? redness in your eyes ? itchy nose, throat, and eyes ? watery eyes If patient is having frequent low blood sugars or has hypoglycemic event that requires assistance they should report it to their provider DIABETES PROBLEMS HOMECARE INSTRUCTIONS Hypo instructions ? When first signs of insulin reaction occur, immediately drink orange juice or cola, or suck on a sugar cube, but only if the person is conscious. ? Person with diabetes should continue taking insulin when ill, unless he/she is not able to eat.? Regularly check blood sugar or urine for sugar and acetone during illness. ? Exercise regularly. ? Pay special attention to the feet.? Avoid cuts, sores, blisters, ill- fitting shoes, or going barefoot.? Promptly treat injuries to the feet. ? Take medications as directed by physician. ? Drink extra water or noncaffeinated, nonsugared drinks to prevented hydration. Signs and symptoms of low blood sugar (happen quickly) Each person's reaction to low blood sugar is different. Learn your own signs and symptoms of when your blood sugar is low. Taking time to write these symptoms down may help you learn your own symptoms of when your blood sugar is low. From milder, more common indicators to most severe, signs and symptoms of low blood sugar include: Feeling shaky Being nervous or anxious Sweating, chills and clamminess Irritability or impatience Confusion Fast heartbeat Feeling lightheaded or dizzy Hunger Nausea Color draining from the skin (pallor) Feeling Sleepy Feeling weak or having no energy Blurred/impaired vision Tingling or numbness in the lips, tongue, or cheeks Headaches Coordination problems, clumsiness Hypoglycemia or blood glucose under 70 mg/dL use the rule of 15's: If you have your blood glucose meter test your blood glucose, if you do not have your meter still follow below instruction: Keep quick-sugar foods with you at all times.? Take 15 grams of fast acting carbohydrates. Examples are 4 ounces of fruit juice or regular soda pop, 8 ounces fat-free milk, 1 tablespoon of table sugar, honey or corn syrup, jam, one miniature box of raisins, 7-8 gumdrops or Life Savers candy, 4 glucose tablets, and glucose gel.? Retest blood glucose in 15 minutes, if blood glucose is still under 80 mg/dLrepeat rule of 15's. If blood glucose is under 50, take 30 grams of fast acting carbohydrates If you are having hypoglycemia, or insulin reaction, more that a few times a week, call MD or religious educator F/U BG check Coding Level of Care Code Est Pt Level 1 (07103) Diagnoses Diabetes mellitus type 1, uncontrolled E10.65
--- OUTSIDE RECORDS SUMMARY | 2024-09-01 17:13 | XMS_ITS | Clinical Summary ---
Author Organization [facility] [employer] [facility] ity Address [address] [place] [address] Care Team Providers Care Ehs Engineer Name Role Phone Unavailable Primary Care Provider [...]
== END 2024-09-01 15:24 | disposition home or self-care (01) ==
LOC: HO.ENCR 14:58
PROVIDERS: PCP Internal Medicine; Visit Provider Registered Nurse Diabetes Educator
DX: E10.65 Type 1 diabetes mellitus with hyperglycemia (principal)

== ENCOUNTER → 2024-09-01 14:58 | Outpatient (BNVA) | payer OTHER, SELFPAY | PROVIDERS: PCP Internal Medicine; Visit Provider Registered Nurse Diabetes Educator | DX: E10.65 Type 1 diabetes mellitus with hyperglycemia (principal) | CPT/HCPCS: 99211 ==

== ENCOUNTER → 2024-09-16 15:04 | Outpatient (BNVA) | payer OTHER, SELFPAY | PROVIDERS: PCP Internal Medicine; Visit Provider Internal Medicine | DX: Z13.89 Encounter for screening for other disorder (principal) ==

== ENCOUNTER 2024-09-21 12:56 | Outpatient (AMB) | payer OTHER, SELFPAY ==
--- NOTE | 2024-09-21 13:03 | MHC.AMDMED ---
Intake Intake Visit Reasons: [employer] training Allergies No Known Allergies (No Known Allergies*) Allergy (Verified 09/16/24 15:17) HPI Comprehensive Diabetes Asmnt Most Recent Diabetes Results: Cholesterol, (<200) 266 mg/dL H 06/30/24 HDL Cholesterol, (>40) 65 mg/dL 06/30/24 Triglycerides, (<150) 175 mg/dL H 06/30/24 Creatinine, (0.5-1.4) 0.70 mg/dL 06/28/24 BUN, (9-16) 8 mg/dL L 06/28/24 Sodium, (135-145) 136 mmol/L 06/28/24 Potassium, (3.3-5.1) 4.8 mmol/L Δ 06/28/24 Chloride, (96-108) 101 mmol/L 06/28/24 Carbon Dioxide, (22-29) 28 mmol/L 06/28/24 Calcium, (8.4-10.2) 9.6 mg/dL Δ 06/28/24 AST, (5-37) 18 U/L 06/28/24 ALT, (0-40) 17 U/L 06/28/24 Total Protein, (6.5-8.0) 6.8 g/dL 06/28/24 Albumin, (3.5-5.0) 3.8 g/dL 06/28/24 [facility] Medical History Suicidal ideation Anxiety Suicide attempt Nicotine dependence MDD (major depressive disorder), severe Cocaine use disorder Noncompliance Dental decay Hyperlipidemia LDL goal <100 Surgical History No history of previous surgery Family History Maternal Grandmother Diabetes, type I Social History Household Members: Family Housing: House Housing Other:: rents a room Do you presently have visiting nurse or other home services: No Unable to assess alcohol history related to: Unknown Alcohol intake: never Patient Tobacco Use Status: Former Tobacco user Tobacco use type: Cigarette Cigarettes Per Day: 5 e-Cigarette/Vaping Use: Currently Using Second Hand Smoke Exposure: No Substance Use Type: Crack/Cocaine and Marijuana service: No Current occupational status: employed Sexual orientation: Straight/Heterosexual Cognitive needs: No Hearing needs: No Vision needs: No Assessment & Plan Assessment & Plan (1) Diabetes mellitus type 1, uncontrolled: Comment: since age 10 Code(s): E10.65 - Type 1 diabetes mellitus with hyperglycemia Plan: Pt did not bring insulin to visit Rescheduled for 09/23/24 Coding Level of Care Code Est Pt Level 1 (09578) Diagnoses Diabetes mellitus type 1, uncontrolled E10.65
--- OUTSIDE RECORDS SUMMARY | 2024-09-21 13:53 | XMS_ITS | Clinical Summary ---
Author Organization [facility] [employer] [facility] ity Address [address] [place] [address] Care Team Providers Care Column Precaster Name Role Phone Unavailable Primary Care Provider [...]
== END 2024-09-21 14:14 | disposition home or self-care (01) ==
LOC: HO.ENCR 12:57
PROVIDERS: PCP Internal Medicine; Visit Provider Registered Nurse Diabetes Educator
DX: E10.65 Type 1 diabetes mellitus with hyperglycemia (principal)

== ENCOUNTER → 2024-09-21 12:56 | Outpatient (BNVA) | payer OTHER, SELFPAY | PROVIDERS: PCP Internal Medicine; Visit Provider Registered Nurse Diabetes Educator | DX: E10.65 Type 1 diabetes mellitus with hyperglycemia (principal) | CPT/HCPCS: 99211 ==

== ENCOUNTER 2024-09-29 12:54 | Outpatient (AMB) | payer OTHER, SELFPAY ==
--- NOTE | 2024-09-29 12:35 | A.OFFVIS_ITS ---
Vital Signs 09/29/24 13:03 Height 5 ft 6 in Weight 125 lb 10.616 oz BMI 20.3 Blood Pressure Location Rt brachial Position Sitting Pulse Source Pulse Oximeter Oxygen Delivery Method Room Air Intake Visit Reasons: T1DM Intake Note: Patient presents today for a follow-up on Type 1 Diabetes Mellitus: Last Diabetic eye exam was on: DUE Last Podiatry exam was on: Patient does not see a Dealer Accounts Investigator Most recent HbA1c: 8.6%, 08/20/2024 Random Glucose- 199 mg/dL, Today Hospital Television Rental Clerk Required: No Accompanied by: Self / Same As Patient Allergies No Known Allergies (No Known Allergies*) Allergy (Verified 09/29/24 13:04) HPI Comments Details: Patient is 34 yo male with DM type 1 diagnosed at age 10 who presents for management of diabetes. He was last seen 08/20/24 at which time a CeQur insulin patch was ordered to improve his compliance with taking meal time insulin. A1C 08/20/2024 8.6 %, 05/18/24 9.3% 01/29/24 9.1%, 8.9% on 10/06/23. He came in to be trained on the CeQur but did not bring in insulin. He was to schedule a follow up with the [facility] but did not. He self started CeQur but I was not aware this at the time of the visit. He has had a severe hypoglycemic episode after he tried to commit suicide by insulin injection in the past He is now seeing the therapist every week and has had an increase in his depression symptoms. He reports he has had thoughts of suicide recently but does have these thoughts today. He has an appt next week with the therapist but reports he is not sure this is helping. At the time of the visit I recommended he step up his appointment with Ese Trinh over the next day or 2 which he declined. He also declined emergency room or crisis center evaluation. I spoke with his mother on the phone with his permission using paraprofessional interpreter Michael Hernandez and she did report he has had an increase in depressive symptoms and I recommended that she take him in for evaluation. Diabetes medications: Tresiba 24 units He stopped this when he started CeQUr. Lispro t.i.d. before meals 1-7 clicks on CeQur Unable to download hissensor today He denies alcohol use. Uses cannibis. No street drugs. Has neuropathy was advised to restart gabapentin by his PCP Symptoms: Cramping in feet, numbness which he feels is better when his sugars are in normal range Hypoglycemia:0cc Eye exam: yrs ago needs to make appt needs new provider No Nephropathy: 10/14/2023 albumin less than 5.0 09/07/2023 eGFR>60 Exercise: little He smokes 3 cigarettes per day and does vape does not carry sugar source despite recommendation Has had recent DKA symptoms when he didn't take insulin. He did not test but was symptomatic He was on an insulin pump in his teen years. He has been on a VGo insulin mechanical patch in the past He was unable to tolerate atorvastin side effect: diarrhea [facility] Medical History (Updated 09/29/24 @ 16:20 by Sunita Woodruff NP) Suicidal ideation Anxiety Suicide attempt Nicotine dependence MDD (major depressive disorder), severe Cocaine use disorder Noncompliance Dental decay Hyperlipidemia LDL goal <100 Surgical History No history of previous surgery Family History Maternal Grandmother Diabetes, type I Social History Household Members: Family Housing: House Housing Other:: rents a room Do you presently have visiting nurse or other home services: No Unable to assess alcohol history related to: Unknown Alcohol intake: never Patient Tobacco Use Status: Former Tobacco user Tobacco use type: Cigarette Cigarettes Per Day: 5 e-Cigarette/Vaping Use: Currently Using Second Hand Smoke Exposure: No Substance Use Type: Crack/Cocaine and Marijuana service: No Current occupational status: employed Sexual orientation: Straight/Heterosexual Cognitive needs: No Hearing needs: No Vision needs: No Physical Exam Vital Signs: Oxygen Delivery Method Room Air 09/29/24 13:03 BMI result Body Mass Index 20.3 Const Other: Absence of Cushingoid features. Absence of acromegalic features. Affect flat. He maintains eye contact after provider position chair in front of the patient. He did respond to all questions. Thought process clear. Neck exam reveals nl size thyroid about 15 gms. No thyroid nodules palpable. Heart S1 S2, Reg R/R. No M/R G. Skin exam reveals absence of vitiligo or acanthosis nigricans. No edema. Results Reviewed Results Reviewed: Laboratory Last Values Glucose (Clinic) 199 mg/dL (60-115) H 09/29/24 13:12 Assessment & Plan Assessment & Plan (1) Diabetes mellitus type 1, uncontrolled: Comment: since age 10 Code(s): E10.65 - Type 1 diabetes mellitus with hyperglycemia Category: Medical Plan: Type 1 diabetic with a history of poorly controlled diabetes. Most recent A1c down to 8.6%. He is now on a CeQur insulin patch and was advised that he needs to continue to take his basal insulin. The patient had an opportunity to ask questions regarding treatment plan. The patient expressed understanding and agreement with the above treatment plan. The patient is aware they should contact our office by phone for worsening glucose readings or for any low blood sugars which may warrant a change in diabetes medication. Compliance is encouraged with medications and any followup testing/consults which may have been ordered. (2) MDD (major depressive disorder), severe: Comment: Continues with depressed mood Code(s): F32.2 - Major depressive disorder, single episode, severe without psychotic features Category: Medical Plan: I asked patient to contact his therapist to request an earlier appointment. He declined evaluation in the emergency room and he left the clinic before I could stop him. I did contact his mother who was waiting in a car for him and used to staff interpreter to indicate to her that he should watch him closely and that he should be taken to the emergency room if he voices any thoughts of suicide. I also contacted the clinic where Ese Trin[facility] practices and left word for her to contact me. I will check in with the patient again tomorrow. He declined crisis counseling through our crisis hotline and states that he is going to be fine. Coding Level of Care Code Est Pt Level 4 (37640) Complex EM visit Add On G2211 Diagnoses Diabetes mellitus type 1, uncontrolled E10.65 MDD (major depressive disorder), severe F32.2 Time Spent (min) 30 Comment Time spent reviewing labs/provider notes, face to face, chart doc
[2024-09-29 13:03] VITALS: BMI 20.3
[2024-09-29 13:18] LABS: Glucose, Whole Blood 199 mg/dL (60-115)
--- OUTSIDE RECORDS SUMMARY | 2024-09-29 13:44 | XMS_ITS | Clinical Summary ---
Author Organization [facility] ity Address [address] [place] [address] Care Team Providers Care Animal Sticker Name Role Phone Unavailable Primary Care Provider [...] (2023-2 5 season) 2023 Influenza Vaccine (#1) 2024 HIB Vaccines Aged Out No longer [...] 5 Years) and At-Risk Patients (6 to 49 Years) Aged Out No longer eligible b ased on patient's age to complete this topic RSV Immunization Patients Un daria 20 months Aged Out No longer eligible b ased on patient's age to complete this topic Varicella Vaccines Aged Out No longer eligible based on patient's age to complete this topic
== END 2024-09-29 13:58 | disposition home or self-care (01) ==
LOC: HO.ENCR 12:55
PROVIDERS: PCP Internal Medicine; Visit Provider Nurse Practitioner Adult Health
DX: E10.65 Type 1 diabetes mellitus with hyperglycemia (principal); F32.2 Major depressive disorder, single episode, severe without psychotic features
CPT/HCPCS: 99214; G2211

== ENCOUNTER → 2024-09-29 12:54 | Outpatient (BNVA) | payer OTHER, SELFPAY | PROVIDERS: PCP Internal Medicine; Visit Provider Nurse Practitioner Adult Health | DX: E10.65 Type 1 diabetes mellitus with hyperglycemia (principal); F32.2 Major depressive disorder, single episode, severe without psychotic features | CPT/HCPCS: 82947; 99212 ==

== ENCOUNTER 2024-09-29 17:23 | Inpatient (IN) | payer OTHER, SELFPAY ==
--- NOTE | ~2024-09-29 | XR_ITS ---
CLINICAL HISTORY: cp 1 view chest x-ray Comparison: CR/SR - XR CHEST 1V - 09/08/23 08:07 EDT Findings: The lungs are clear. Heart size is normal. No acute fracture. 1 view chest x-ray Comparison: 09/08/2023 08:07 AM EDT: CR IMPRESSION: 1. No acute findings. This document has been electronically signed by: Koko Quispe MD on 09/29/2024 19:21:42
--- NOTE | ~2024-09-29 | CT_ITS ---
CLINICAL HISTORY: ams CT head without contrast Comparison: None provided Findings: No intra-axial mass, midline shift, hydrocephalus, or acute hemorrhage. No significant atrophy-like change or white matter disease. There is no sinus or mastoid fluid. The orbits are unremarkable. There is no acute fracture. IMPRESSION: 1. No acute intracranial findings. This document has been electronically signed by: Koko Quispe MD on 09/29/2024 20:30:45
[2024-09-29 17:40] VITALS: BP 120/69; BP 135/75; PULSE 80; RESP 18; TEMP 35.3; O2SAT 96; O2SAT 97; BMI 20.7
--- NOTE | 2024-09-29 17:49 | MHC.EDTECH ---
pt brought in via ambulance, nonverbal at this time, refusing to allow staff to change him out of all his wet clothes, rolling on his stomach continuously. RN aware of behavior
--- NOTE | 2024-09-29 18:06 | ECG_ITS ---
Test Reason : hypoglycemic Blood Pressure : */* mmHG Vent. Rate : 74 BPM Atrial Rate : 74 BPM P-R Int : 148 ms QRS Dur : 90 ms QT Int : 380 ms P-R-T Axes : 53 59 80 degrees QTcB Int : 421 ms Normal sinus rhythm Normal ECG When compared with ECG of 29-Jun-2024 07:54, No significant change was found Referred By: Kate Isbell Electronically Signed By: Baldev Morales
--- NOTE | 2024-09-29 18:09 | ED_ITS ---
HPI - General Adult General Chief complaint: General Medical Stated complaint: hypoglycemia ,lethargic Time Seen by Provider: 09/29/24 17:54 History of Present Illness HPI narrative: Patient is a 34-year-old male with a history of diabetes. Family noted patient to be unresponsive diaphoretic. Has a history of diabetes. EMS got on scene patient's sugar was 30. Was given 250 cc bolus of D10. Patient's repeat glucose was 200. Still lethargic sent to the ED for further evaluation on arrival patient was noted to have a sugar in the 40s. An additional amp of D50 was given patient's sugar is now over 100. Still lethargic. Localizes the pain. Patient unable to give detailed. Has a history of opiate abuse history of cannabis abuse history of cocaine abuse and nicotine dependence. Related Data Home Medications ?Medication ?Instructions ?Recorded ?Confirmed sertraline 100 mg tablet 100 mg PO QAM 09/29/24 Previous Rx's ?Medication ?Instructions ?Recorded insulin degludec 200 unit/mL (3 24 unit (0.12 mL) subc ut DAILY 05/18/24 mL) subcutaneous pen (Tresiba days #6 mL FlexTouch U-200 insulin) hydroxyzine HCl 25 mg tablet 25 mg PO Q6H PRN mild anx iety 30 07/05/24 days #60 tabs trazodone 100 mg tablet 100 mg PO BEDTIME PRN for in somnia 07/05/24 30 days #90 tabs CeQur Simplicity 2 unit device #8 ea 09/02/24 (bolus insulin pump, 200 unit) diabetic supplies, miscellan. #1 ea 09/02/24 (CeQur Simplicity Medical/Surgery Registered Nurse) insulin lispro 100 unit/mL See Rx Instructions .Route 09/03/24 subcutaneous solution USEASDIRECTD 30 days #20 mL Allergies Allergy/AdvReac Type Severity Reaction Status Date / Time No Known Allergies (No Known Allergy Verified 09/29/24 17:43 Allergies*) Review of Systems 2 Review of Systems: Positive shortness of breath Yes all other systems are reviewed and are negative PMFSH Past Medical History Attestation statement: The following information was validated with the patient. Medical History Suicidal ideation Anxiety Suicide attempt Nicotine dependence MDD (major depressive disorder), severe Cocaine use disorder Noncompliance Dental decay Hyperlipidemia LDL goal <100 Surgical History No history of previous surgery Family History Family History Maternal Grandmother Diabetes, type I Social History Social History Household Members: Family Housing: House Housing Other:: rents a room Do you presently have visiting nurse or other home services: No Unable to assess alcohol history related to: Unknown Alcohol intake: never Patient Tobacco Use Status: Former Tobacco user Tobacco use type: Cigarette Cigarettes Per Day: 5 e-Cigarette/Vaping Use: Currently Using Second Hand Smoke Exposure: No Substance Use Type: Crack/Cocaine and Marijuana Advance Directives: No Advance Directives Information Provided: Yes Nutrition Risks: No Nutritional Risk service: No Current occupational status: employed Sexual orientation: Straight/Heterosexual Cognitive needs: No Hearing needs: No Vision needs: No Physical Exam ED Vital Signs: Vital Signs - 24 hr 09/29/24 17:40 09/29/24 18:36 09/29/24 19:52 Temperature 95.6 F L 95.7 F L 96.1 F L Pulse Rate 80 87 77 Respiratory Rate 18 13 13 Blood Pressure 120/69 154/92 H 115/71 Pulse Oximetry 96 100 99 Oxygen Delivery Method Room Air Room Air Room Air BMI result Body Mass Index 20.7 Appearance: Lethargic avoids pain Eyes: Pupils equal, round and reactive to light. ENT: Pharynx normal. Neck: Normal inspection. Neck supple. No lymph nodes noted. No crepitus CVS: Normal heart rate and rhythm. Pulses normal. Normal S1 and S2 Respiratory: No respiratory distress. Breath sounds normal. No Wheezing. No rales Abdomen: Soft and nontender. No rigidity. No distention. good BS x4 Skin: Skin warm and dry. Normal skin color. Normal skin turgor. Extremities: No lower extremity edema. Neurovascular intact to all extremities. No Lacerations. No Rash Neuro: Lethargic avoids pain. Moves to painful stimuli. Cranial nerve exam was done later in the visit at approximately 21:00 patient's cranial nerves grossly intact Medications Administered Generic Name Dose Route Start Last Admin Trade Name Freq PRN Reason Stop Dose Admin Enoxaparin Sodium 40 mg 09/29/24 22:00 09/29/24 23:05 Enoxaparin Sodium 40 Mg/0.4 Ml Syringe SUBCUT 40 mg Q24H AMISHA Administration Dextrose/Sodium Chloride 1,000 mls @ 125 mls/hr 09/29/24 19:15 09/29/24 19:15 D51/2ns IVCONT 125 mls/hr .Q8H AMISHA Administration Sodium Chloride 3 ml 09/30/24 00:00 09/29/24 23:05 0.9 % Sodium Chloride Flush 3 Ml Syringe IVFLUSH Not Given QSHIFT AMISHA Discontinued Medications Generic Name Dose Route Start Last Admin Trade Name Freq PRN Reason Stop Dose Admin Dextrose 25 gm 09/29/24 18:05 09/29/24 18:15 Dextrose 50 % 25 Gm/50 Ml Syringe IVPUSH 09/29/24 18:06 25 gm ONCE ONE Administration Dextrose 25 gm 09/29/24 18:13 09/29/24 17:37 Dextrose 50 % 25 Gm/50 Ml Syringe IVPUSH 09/29/24 18:14 25 gm ONCE ONE Administration Dextrose 25 gm 09/29/24 19:08 09/29/24 19:13 Dextrose 50 % 25 Gm/50 Ml Syringe IVPUSH 09/29/24 19:09 25 gm ONCE ONE Administration Sodium Chloride 1,000 mls @ 999 mls/hr 09/29/24 18:15 09/29/24 19:13 Ns IV 09/29/24 19:15 Infused .Q1H1M AMISHA Infusion Naloxone HCl 2 mg 09/29/24 18:05 09/29/24 18:18 Naloxone Hcl 2 Mg/2 Ml Syringe IVPUSH 09/29/24 18:06 2 mg ONCE ONE Administration Medical Decision Making Medical Decision Making MDM Narrative: Patient presented with having low sugar in the 30s. EMS gave patient be 250 cc of D10 glucose. Patient's sugar improved to over 100. On arrival patient's sugar was down in 48 again. Was given an amp of D50. Monitored. Had multiple drops of glucose. Requiring us to start him on a D5 drip. Patient monitor in the emergency department. CT scan of the head was done was showed no evidence of bleeding by my interpretation. I reviewed radiology's reading. Patient is given Narcan with no results. When patient awoke. He claims that he was suicidal. He took 18 units of insulin. Question type of insulin that was used. Patient is both on long-acting and short-acting insulin. Has a subcu insulin pump in his left abdomen. I took this off. Will monitor patient's sugar every hour. Patient told staff that he wants to kill himself by using the insulin and also tried a dressed in a very warm clothing. It is Ricarda very hot outside. Will have a sitter with patient. Will admit patient overnight. Patient monitored in the emergency department for the last 4 hours. Sugar is now maintaining at over 100. In guarded condition. Will admit for further eval. Tylenol aspirin level still pending. My interpretation of patient's VBG showed no CO2 retention. Differential Diagnosis Differential Diagnoses: The differential diagnosis associated with the presentation includes Hypoglycemia, suicidal ideation Admission/Observation Consideration of admission/observation: Escalation of care including admission/observation considered Consult Healthcare Provider Management of the patient was discussed with: Hospitalist Lab Data MDM Lab Attestation statement: I reviewed the patient's lab results. 09/29/24 18:25 09/29/24 18:25 Labs: Lab Results 09/29/24 09/29/24 Range/Units 18:25 18:30 WBC 10.8 (4.8-10.8) X10*3/uL RBC 5.43 (4.60-5.80) X10*6/uL Hgb 15.5 (14.0-18.0) g/dl Hct 46.5 (42.0-52.0) % MCV 85.6 (80.0-98.0) fL MCH 28.5 (27.0-33.0) pg MCHC 33.3 (31.0-36.0) g/dl RDW 13.4 (11.0-16.0) % Plt Count 224 (160-400) X10*3/uL MPV 12.1 (9.4-12.4) fL Immature Gran % (Auto) 0.5 H (0.0-0.4) % Neut % (Auto) 79.3 H (45-73) % Lymph % (Auto) 11.3 L (20-40) % Ashley % (Auto) 7.9 (2-11) % Eos % (Auto) 0.6 (0-4) % Baso % (Auto) 0.4 (0-2) % Lymph # (Auto) 1.2 (1.2-4.9) X10*3/uL Ashley # (Auto) 0.9 (0.1-1.2) X10*3/uL Eos # (Auto) 0.1 (0.0-0.4) X10*3/uL Baso # (Auto) 0.0 (0.0-0.2) X10*3/uL Abs Immat Gran (auto) 0.05 H (0.00-0.03) X10*3/uL Absolute Neuts (auto) 8.6 H (2.0-8.3) x10*3/uL Absolute Nucleated RBC 0.000 (0.0-0.012) X10*3/uL Nucleated RBC % (auto) 0.0 (0.0-0.2) /100WBC VBG pH 7.41 (7.32-7.43) VBG pCO2 60 mmHg VBG pO2 35 mmHg VBG HCO3 38 H (22-26) mmol/L VBG O2 Saturation 54.0 % VBG Base Excess 10.9 mmol/L Sodium 144 (135-145) mmol/L Potassium 3.8 D (3.3-5.1) mmol/L Chloride 102 (96-108) mmol/L Carbon Dioxide 35 H (22-29) mmol/L Anion Gap 11 L (12-20) BUN 11 (9-16) mg/dL Creatinine 0.77 (0.5-1.4) mg/dL Estim Creat Clear Calc 112.1 Estimated GFR > 60 Random Glucose 151 H (60-115) mg/dL Lactic Acid 2.0 (0.5-2.0) mmol/L Calcium 10.0 (8.4-10.2) mg/dL Magnesium 2.3 (1.6-2.6) mg/dL Total Bilirubin 0.3 (0.0-1.0) mg/dL Direct Bilirubin 0.1 (0.0-0.5) mg/dL AST 21 (5-37) U/L ALT 23 (0-40) U/L Alkaline Phosphatase 79 (39-117) U/L Ammonia 30 (13-55) umol/L Troponin I High Sens < 2.7 (<3.5-35.0) ng/L Total Protein 7.9 (6.5-8.0) g/dL Albumin 4.6 (3.5-5.0) g/dL Lipase 8 (8-78) U/L TSH 6.24 H (0.32-4.0) uIU/mL Free T4 0.93 (0.71-1.85) ng/dL Independent Interpretation I performed an independent interpretation of an: EKG (My interpretation patient's EKG showed a sinus pattern heart rate is 80 AL QRS QTC normal no acute ST segment elevation) and CT Scan (My interpretation patient's CT head was grossly negative no pneumonia no pneumothorax) Radiology Impression Discussion of test interpretation with radiology: I have reviewed the radiologist's reading. External Record Review External record reviewed: Inpatient record Social Determinants Patient?s care significantly limited by Social Determinants of Health including: Problems related to primary support group Critical Care Time Critical Care Time Critical Care Time: Yes Total Critical Care Time: 40 Attestation: I have personally provided 40 minutes of critical care time exclusive of time spent on separately billable procedures. ?Time includes review of lab data, radiology results, discussion with consultants, and monitoring for potential decompensation. ?Interventions were performed as documented above Discharge Plan Discharge Clinical Impression: Cocaine use disorder, Hypoglycemia, Suicidal ideation Patient Disposition: Admitted As Inpatient
[2024-09-29 18:30] LABS: MANUAL DIFF FLAG NO
[2024-09-29 18:32] LABS: Hematocrit 46.5 % (42.0-52.0); Hemoglobin 15.5 g/dl (14.0-18.0); Imm Gran Abs Auto 0.05 X10*3/uL (0.00-0.03); Imm Gran Pct Auto 0.5 % (0.0-0.4); Lymphocytes Absolute Auto 1.2 X10*3/uL (1.2-4.9); Mean Corpuscular HGB Conc 33.3 g/dl (31.0-36.0); Mean Corpuscular Hemoglobin 28.5 pg (27.0-33.0); Mean Corpuscular Volume 85.6 fL (80.0-98.0); NRBC Abs Auto 0.000 X10*3/uL (0.0-0.012); NRBC Pct Auto 0.0 /100WBC (0.0-0.2); Platelet Count 224 X10*3/uL (160-400); Red Blood Count 5.43 X10*6/uL (4.60-5.80); White Blood Count 10.8 X10*3/uL (4.8-10.8)
[2024-09-29 18:34] LABS: VBG HCO3 38 mmol/L (22-26); VBG O2 % Saturation 54.0 %
[2024-09-29 18:36] VITALS: BP 154/92; PULSE 87; RESP 13; TEMP 35.4; O2SAT 100
[2024-09-29 18:36] LABS: Venous Blood Gas Refer to POC result
--- NOTE | 2024-09-29 18:39 | PC.NURSE ---
on arrival pts clothes soaked, skin clammy. POC checked 48. D50 amp given. Pt not cooperative with care, not answering questions verbally but responding to uncomfortable stimuli. recheck POCs as charted. Dr. Isbell ordered another amp of D50 when POC was 68. 4 day insulin infusion pump was removed and discarded. Pt RR 16-20, Spo2 high 90s. 2mg IV narcan given per order. at this time pt beginning to respond. he is answering some yes/no questions and shaking head. his eyes are open. more cooperative with care. labs drawn. EKG pending and plan for CT scan.
[2024-09-29 18:49] LABS: Alanine Aminotransferase 23 U/L (0-40); Albumin Level 4.6 g/dL (3.5-5.0); Alkaline Phosphatase 79 U/L (39-117); Anion Gap 11 (12-20); Aspartate Amino Transferase 21 U/L (5-37); Blood Urea Nitrogen 11 mg/dL (9-16); Calcium 10.0 mg/dL (8.4-10.2); Carbon Dioxide 35 mmol/L (22-29); Chloride 102 mmol/L (96-108); Creatinine Clr Calc Pharmacy 112.1; Estimated Glomerular Filt Rate > 60; Lipase 8 U/L (8-78); Potassium 3.8 mmol/L (3.3-5.1); Sodium 144 mmol/L (135-145); Total Protein 7.9 g/dL (6.5-8.0)
[2024-09-29 18:54] LABS: Ammonia 30 umol/L (13-55)
[2024-09-29 18:57] LABS: Troponin-I High Sensitivity < 2.7 ng/L (<3.5-35.0)
--- NOTE | 2024-09-29 19:14 | PC.NURSE ---
per Dr. Isbell, take down NS and start D5 0.45% NS
[2024-09-29] MEDS: Dextrose 5 % and 0.45 % NaCl 1,000 ML 125 ML IVCONT (19:15)
[2024-09-29 19:52] VITALS: BP 115/71; PULSE 77; RESP 13; TEMP 35.6; O2SAT 99
[2024-09-29 19:58] LABS: Free T4 (Free Thyroxine) 0.93 ng/dL (0.71-1.85)
--- NOTE | 2024-09-29 20:23 | MHC.EDTECH ---
Pt stated to t/w that some time this afternoon he injected himself with insulin as a suicide attempt. Primary RN, radiotelegraph operator, and MD made aware right away. T/w is with pt as a 1:1
--- NOTE | 2024-09-29 20:45 | PC.NURSE ---
Addendum entered by Ivelisse Huff 09/29/24 20:48: pt reports intentional insulin overdose stated 14 units instead of 2 units pt changed over into [facility] gown, 1:1 at bedside for safety pt refusing to change into hospital attire, refusing to talk stating i don't know to all questions Original Note: assumed care @1900 1904 POC 50, D5 in 0.45 NS started per MAY pt somnolent, second IV line started 2014 poc 98, pt more awake, reported to tool grinding technician SI
--- NOTE | 2024-09-29 21:06 | P.HPHOSP_ITS ---
History of Present Illness Date of Service: 09/29/24 Attending physician on admission: David Boss Chief Complaint: unresponsive Patient is a 34-year-old black male with a past medical history insulin- dependent diabetes type 1 diagnosed as a teenager currently using insulin pump, MDD and anxiety, substance use disorder, marijuana use, tobacco dependence, subclinical hypothyroidism, hyperlipidemia was brought in by ambulance after family called due to finding patient unresponsive and extremely diaphoretic. Patient's blood glucose on the scene was 30 mg/dL. Received D10/250 mL and glucose [place] to 222 but patient remained lethargic then resistant to care when IV placement was attempted in the field. Patient arrived with insulin pump in place but this was removed in the emergency department. Blood glucose on arrival to the ED was back down to 40. Patient remained lethargic and unresponsive. Patient received an additional amp of D50 and blood sugar is now staying over 100 and patient is currently on a D5 half- normal saline infusion at 125 mL. Per ED provider's note patient did receive 1 dose of Narcan with no change in response initially. When patient did finally awaken, patient stated he was suicidal. Patient told ED provider he took 18 units of insulin (unknown if long or short acting). Toxicology screen currently pending. Chest x-ray negative for any acute findings. Head CT negative for any acute findings. Ammonia level normal. VBG stable noting no CO2 retention. Patient wrapped in warm blankets as body temp remains 97.2. Patient is able to protect his airway at this time. Patient is seen in the emergency department for admission and is currently awake, able to follow commands and verbal. Patient able to speak in sentences and provided minimal history regarding medical/surgical history and today's events. Patient did state he thought he took 14 units of Humalog and was attempting to take his life. Patient did not want to elaborate further but has been staying with his parents due to safety concerns. Patient states he has attempted suicide in the past. TSH elevated at 6.24 and free T4 is normal. Based on patient's record patient has a history of subclinical hypothyroidism. Patient does state he kind of has a primary care physician but would not elaborate. Patient asked that staff to not contact his parents to provide update. One-to-one currently in place. Psychiatric consult placed. Patient denies history of IV drug abuse but is requesting HIV and hepatitis testing. Review of Systems 2 Review of Systems: Patient currently denies any chest pain or shortness of breath at rest or with exertion. Patient denies any abdominal pain. Patient denies any headache visual changes. Yes all other systems are reviewed and are negative [facility] Medical History Suicidal ideation Anxiety Suicide attempt Nicotine dependence MDD (major depressive disorder), severe Cocaine use disorder Noncompliance Dental decay Hyperlipidemia LDL goal <100 Cognitive capacity: alert and orientated X3 Functional capacity: independent ambulation Family History Maternal Grandmother Diabetes, type I Surgical History No history of previous surgery Social History Household Members: Family Housing: House Housing Other:: rents a room Do you presently have visiting nurse or other home services: No Unable to assess alcohol history related to: Unknown Alcohol intake: never Patient Tobacco Use Status: Former Tobacco user Tobacco use type: Cigarette Cigarettes Per Day: 5 e-Cigarette/Vaping Use: Currently Using Second Hand Smoke Exposure: No Substance Use Type: Crack/Cocaine and Marijuana Advance Directives: No Advance Directives Information Provided: Yes Nutrition Risks: No Nutritional Risk service: No Current occupational status: employed Sexual orientation: Straight/Heterosexual Cognitive needs: No Hearing needs: No Vision needs: No Ebola Risk: Travel/Contact With Anyone From Affected Area/s: No Has Patient Experienced Ebola Symptoms: No Meds Allergies Allergy/AdvReac Type Severity Reaction Status Date / Time No Known Allergies (No Known Allergy Verified 09/29/24 17:43 Allergies*) Active Medications: Current Medications Acetaminophen (Acetaminophen 325 Mg Tablet) 650 mg PO Q6H PRN PRN Reason: Pain, Mild 1-3,fever,headache Albuterol/Ipratropium (Albuterol/Iprat 2.5/0.5mg 3 Ml Ampul.Neb) 3 ml INHALE Q4H PRN PRN Reason: Shortness of Breath/Wheezing Calcium Carbonate (Calcium Carbonate 750 Mg Tab.Chew) 750 mg PO Q4H PRN PRN Reason: Heartburn Enoxaparin Sodium (Enoxaparin Sodium 40 Mg/0.4 Ml Syringe) 40 mg SUBCUT Q24H [facility] Dextrose/Sodium Chloride (D51/2ns) 1,000 mls @ 125 mls/hr IVCONT .Q8H [facility] Last Admin: 09/29/24 19:15 Dose: 125 mls/hr Magnesium Hydroxide (Milk Of Magnesia 30 Ml Oral.Susp) 30 ml PO DAILY PRN PRN Reason: Constipation Melatonin (Melatonin 3 Mg Tablet) 6 mg PO BEDTIME PRN PRN Reason: Insomnia Ondansetron HCl (Ondansetron Hcl 4 Mg/2 Ml Vial) 4 mg IVPUSH Q8H PRN PRN Reason: Nausea and Vomiting Senna (Sennosides 8.6 Mg Tablet) 17.2 mg PO BEDTIME [facility] Sodium Chloride (0.9 % Sodium Chloride Flush 3 Ml Syringe) 3 ml IVFLUSH QSHIFT [facility] Home Medications ?Medication ?Instructions ?Recorded ?Confirmed ?Last Taken ?Type sertraline 100 mg tablet 100 mg PO QAM 09/29/24 Unkn own History Physical Exam 2 Vital Signs and Narrative: Vital Signs: Last Vital Signs Temp 96.1 F L 09/29/24 19:52 Pulse 77 09/29/24 19:52 Resp 13 09/29/24 19:52 BP 115/71 09/29/24 19:52 Pulse Ox 99 09/29/24 19:52 O2 Del Method Room Air 09/29/24 19:52 BMI result Body Mass Index 20.7 Alert and orientated X3, soft-spoken, making minimal eye contact, providing minimal history and information Neuro: CN II-X11 intact, no deficits, visual acuity intact EYES: PERRLA, EOM intact, sclerae nonicteric, conjunctiva pink ENT: hearing intact, no issues with swallowing, uvula midline, lips moist, nares patent no epistaxis, piercings in both lips Cardiac: S1 S2 RRR, no murmur, no JVD, no edema in Lower ext Pulmonary: lungs clear to auscultation B Abdominal: BS active in all 4 quadrants, no guarding, tenderness, rebounding MSK: strength 5/5 upper and lower extremities : no CVA tenderness no bladder distension Extremities: no edema in lower extremities, PT and DP pulses palpable +2 Psych: Affect flat, judgement and insight poor Skin: Intact, no lesions or rashes noted Results Labs 09/29/24 18:25 09/29/24 18:25 Labs: Laboratory Results - last 24 hr 09/29/24 09/29/24 18:25 18:30 MCV 85.6 MCH 28.5 MCHC 33.3 RDW 13.4 Plt Count 224 MPV 12.1 Immature Gran % (Auto) 0.5 H Neut % (Auto) 79.3 H Lymph % (Auto) 11.3 L Morrill % (Auto) 7.9 Eos % (Auto) 0.6 Baso % (Auto) 0.4 Lymph # (Auto) 1.2 Morrill # (Auto) 0.9 Eos # (Auto) 0.1 Baso # (Auto) 0.0 Abs Immat Gran (auto) 0.05 H Absolute Neuts (auto) 8.6 H Absolute Nucleated RBC 0.000 Nucleated RBC % (auto) 0.0 VBG pH 7.41 VBG pCO2 60 VBG pO2 35 VBG HCO3 38 H VBG O2 Saturation 54.0 VBG Base Excess 10.9 Anion Gap 11 L Estim Creat Clear Calc 112.1 Estimated GFR > 60 Random Glucose 151 H Lactic Acid 2.0 Calcium 10.0 Total Bilirubin 0.3 Direct Bilirubin 0.1 AST 21 ALT 23 Alkaline Phosphatase 79 Ammonia 30 Total Protein 7.9 Albumin 4.6 Lipase 8 TSH 6.24 H Free T4 0.93 ECG Attestation: I personally reviewed and interpreted this ECG as follows: (Normal sinus rhythm QTC 421) Prior ECG tracings: available for review Imaging Radiologist's Impressions: Chest x-ray Negative for acute findings Head CT Negative for acute findings Assessment and Plan (1) Suicide attempt: Status: Acute Plan Patient is a 34-year-old black male with a past medical history insulin- dependent diabetes type 1 diagnosed as a teenager currently using insulin pump, MDD and anxiety, substance use disorder, marijuana use, tobacco dependence, subclinical hypothyroidism, hyperlipidemia is being admitted for attempted suicide using insulin. Patient was found unresponsive and diaphoretic by his parents. 911 was called. Patient received intervention including Narcan and toxicology screen is currently pending. Patient stated he may have used 18 versus 14 units of Humalog to attempted take his life. Patient was also wearing insulin pump at the time. Patient appears to be back at baseline on D5 1/2 normal saline at 01:25 mL/hour with a one-to-one in place and psychiatric consult pending. Suicide attempt using insulin 1:[address] Psychiatry consulted Patient can not leave AMA, section 12 completed by ED provider Acute Metabolic encephalopathy secondary to severe hypoglycemia in known type 1 diabetic Metabolic encephalopathy has resolved, patient appears to be back to his baseline alert and orientated x3 with normal neurological exam CT head negative CXR negative for evidence of aspiration or acute illness Unclear if patient used only Humalog insulin for suicide attempt. Close monitoring in place. Neuro checks Q4H X24H Patient continues on D5 1/2 normal saline at 125 mL/hour. Blood glucose levels remain greater than 100. Blood glucose checks every hour until 2 consecutive blood sugars are greater than 150 then we will change to q.2 hours. Ammonia level was normal Toxicology screen pending. Acetaminophen and aspirin levels are undetected. VBG reassuring, CO2 was normal Insulin pump was removed upon arrival in the ED Diabetic diet, patient is now able to protect his airway Subclinical Hypothyroidism (TSH 6.24, FT4 0.93N) Based on patient's records patient has a history of this Patient will need outpatient follow-up with labs repeated in 4 weeks Case management ordered to review primary care needs. HX of cocaine/ marijuana use Patient would not elaborate on recent drug use regarding cocaine/crack cocaine. Patient does deny IV drug abuse. Patient has used marijuana in the last 2 days One dose of Narcan administered in ED Toxicology screen pending Patient requesting hepatitis and HIV testing which has been ordered Tobacco dependence Pt counseled, pt deferred need for NRT at this time MDD/Anxiety/ Hx of suicide attempts Psychiatry consutled Pt states he does have psychiatric care in the community Care team to review closer to discharge for inpatient psych placement Continue 1:1 Qtc on ECG WNL DVT prophylaxis: Lovenox PPI prophylaxis: Protonix Med rec pending Full Code status Quality Stroke Does the patient have a stroke diagnosis?: No Reason for No Anti-thrombotic by Day Two: N/A - Med Ordered VTE Prior VTE?: No VTE Risk Level:: Medical - moderate - high VTE Device Contraindication: N/A - Device Ordered VTE Drug Contraindication: N/A - Med Ordered
[2024-09-29 21:16] LABS: Glucose, Whole Blood 72 mg/dL (60-115)
[2024-09-29 21:20] LABS: Magnesium 2.3 mg/dL (1.6-2.6)
[2024-09-29 21:53] LABS: Acetaminophen LAB < 3 mcg/mL (<30); Salicylate < 5.0 mg/dL (15-30)
--- NOTE | 2024-09-29 22:01 | PC.NURSE ---
Assumed care for this pt. Pt is currently resting at the bedside. No apparent distress noted. Minimally answering yes/no questions. Denies any pain or discomfort at this time. D5/0.45NS going at 125mls/hr. 1:1 sitter at bedside for safety. Urine sample pending. Pt is aware. Hospitalist at bedside reports to continue hourly blood sugar checks until blood sugars are consistently above 150. Monitoring is ongoing.
[2024-09-29 22:11] LABS: Glucose, Whole Blood 83 mg/dL (60-115)
[2024-09-29 23:10] LABS: Glucose, Whole Blood 168 mg/dL (60-115)
--- NOTE | 2024-09-30 | ECG_ITS ---
Test Reason : qtc monitoring Blood Pressure : */* mmHG Vent. Rate : 77 BPM Atrial Rate : 77 BPM P-R Int : 150 ms QRS Dur : 88 ms QT Int : 340 ms P-R-T Axes : 50 58 69 degrees QTcB Int : 384 ms Normal sinus rhythm Normal ECG When compared with ECG of 29-Sep-2024 19:04, No significant change was found Referred By: David Boss Electronically Signed By: Baldev Morales
[2024-09-30 00:16] LABS: Glucose, Whole Blood 174 mg/dL (60-115)
[2024-09-30] MEDS: Dextrose 5 % and 0.45 % NaCl 1,000 ML 125 ML IVCONT (03:45)
[2024-09-30 04:41] LABS: Glucose, Whole Blood 198 mg/dL (60-115)
[2024-09-30 05:19] VITALS: BP 114/69; PULSE 77; RESP 15; TEMP 36.3; O2SAT 100
[2024-09-30 05:24] LABS: Glucose, Whole Blood 158 mg/dL (60-115)
[2024-09-30 06:29] LABS: MANUAL DIFF FLAG NO
[2024-09-30 06:45] LABS: Hematocrit 43.7 % (42.0-52.0); Hemoglobin 14.1 g/dl (14.0-18.0); Imm Gran Abs Auto 0.04 X10*3/uL (0.00-0.03); Imm Gran Pct Auto 0.3 % (0.0-0.4); Lymphocytes Absolute Auto 1.6 X10*3/uL (1.2-4.9); Mean Corpuscular HGB Conc 32.3 g/dl (31.0-36.0); Mean Corpuscular Hemoglobin 28.3 pg (27.0-33.0); Mean Corpuscular Volume 87.8 fL (80.0-98.0); NRBC Abs Auto 0.000 X10*3/uL (0.0-0.012); NRBC Pct Auto 0.0 /100WBC (0.0-0.2); Platelet Count 198 X10*3/uL (160-400); Red Blood Count 4.98 X10*6/uL (4.60-5.80); White Blood Count 13.0 X10*3/uL (4.8-10.8)
[2024-09-30 07:01] LABS: Alanine Aminotransferase 15 U/L (0-40); Albumin Level 3.7 g/dL (3.5-5.0); Alkaline Phosphatase 71 U/L (39-117); Anion Gap 10 (12-20); Aspartate Amino Transferase 18 U/L (5-37); Blood Urea Nitrogen 10 mg/dL (9-16); Carbon Dioxide 28 mmol/L (22-29); Chloride 104 mmol/L (96-108); Cholesterol 193 mg/dL (<200); Creatinine Clr Calc Pharmacy 125.1; Estimated Glomerular Filt Rate > 60; HDL Cholesterol 49 mg/dL (>40); Potassium 4.1 mmol/L (3.3-5.1); Sodium 138 mmol/L (135-145); Total Protein 6.6 g/dL (6.5-8.0); Triglycerides 131 mg/dL (<150)
[2024-09-30 07:03] LABS: Hemoglobin A1C 221.8808 umol/L; Total Hemoglobin (HGBA1C) 3732.5593 umol/L
[2024-09-30 07:04] LABS: Glucose, Whole Blood 167 mg/dL (60-115)
[2024-09-30 07:08] LABS: Calcium 9.1 mg/dL (8.4-10.2)
[2024-09-30 07:21] LABS: HBS Num1 15.83 mIU/mL (0-7.99); HBc Num1 0.16 S/CO (0.00-0.79); HBsAGNum1 0.47 S/CO (0.00-0.99); HIV Num 1 0.05 S/CO (0.00-0.99); Hepatitis A Antibody IgM 0.14 Index (0-0.79); Hepatitis B Surface Antigen Negative (Negative); ~HepC Num1 0.19 S/CO (0.00-0.79); ~Hepatitis A Antibody IgM Nonreactive (Nonreactive); ~Hepatitis B Surface Antibody REACTIVE (Nonreactive); ~Hepatitis C Antibody Nonreactive (Nonreactive)
--- NOTE | 2024-09-30 08:40 | PHA.MEDREC ---
Addendum entered by Sindi Toledo RPh 09/30/24 08:46: Reviewed by [facility]. Original Note: Pharmacy Consult ? Medication Reconciliation Pharmacy has completed the medication reconciliation. Spoke with pt and he confirmed his medications. Pt confirmed he still uses Humalog per a sliding scale he follows, but didnt remember the units of at this time and he confirmed his Tresiba, injecting 24 units daily. Pt confirmed he still has Hydroxyzine as needed for Anxiety, Sertraline as needed for his mood and Trazodone as needed for insomnia at home. Pt states he took his Insulins yesterday.
[2024-09-30 08:51] VITALS: BP 123/79; PULSE 79; RESP 12; O2SAT 100
[2024-09-30 09:12] LABS: Glucose, Whole Blood 151 mg/dL (60-115)
[2024-09-30 09:23] VITALS: BMI 21.1
[2024-09-30 09:30] VITALS: BP 126/78; PULSE 78; RESP 18; TEMP 37.2; O2SAT 100
[2024-09-30 09:57] LABS: Glucose, Whole Blood 48 mg/dL (60-115)
[2024-09-30 09:57] LABS: Glucose, Whole Blood 98 mg/dL (60-115)
[2024-09-30 09:59] LABS: Glucose, Whole Blood 131 mg/dL (60-115)
[2024-09-30 10:00] LABS: Glucose, Whole Blood 117 mg/dL (60-115)
[2024-09-30 10:00] LABS: Glucose, Whole Blood 135 mg/dL (60-115)
[2024-09-30 10:01] LABS: Glucose, Whole Blood 50 mg/dL (60-115)
[2024-09-30 10:01] LABS: Glucose, Whole Blood 69 mg/dL (60-115)
[2024-09-30 10:01] LABS: Glucose, Whole Blood 148 mg/dL (60-115)
[2024-09-30 11:55] LABS: Glucose, Whole Blood 126 mg/dL (60-115)
--- NOTE | 2024-09-30 12:27 | MHC.CLN ---
NUTRITION CONSULT FOR RECENT WEIGHT LOSS AND POOR PO. DIET=DIABETIC 2000 KCALS, SAFETY TRAY. REVIEW OF WEIGHT HX SHOWS WEIGHT STABLE SINCE 06/11/24 WITH PRIOR WEIGHT FLUCTUATION NOTED. ADDING ENSURE MAX BID TO PROMOTE NUTRITIONAL INTAKE. SUPPLEMENT PROVIDE 300 KCALS, 60 G PROTEIN.
[2024-09-30 12:45] LABS: Appearance Urine Clear; Glucose Urine UA 100 mg/dL (Negative); PH 8.0 (5.0-9.0); Specific Gravity - Urine 1.025 (1.005-1.025); UMIC TRIGGER UA YES; UMIC TRIGGER UACC YES
[2024-09-30 12:54] LABS: Cannabinoid Screen Urine POSITIVE (Not Detect)
--- NOTE | 2024-09-30 13:17 | PM.EVENT ---
Event Note Date of Service: 09/30/24 Event Note: seen and examined this morning follow up for intentional overdose with insulin awake and alert this am Patient is a 34-year-old male with a past medical history insulin-dependent diabetes type 1 diagnosed as a teenager currently using insulin pump, MDD and anxiety, substance use disorder, marijuana use, tobacco dependence, subclinical hypothyroidism, hyperlipidemia is being admitted for attempted suicide using insulin. Patient was found unresponsive and diaphoretic by his parents. 911 was called. Patient received intervention including Narcan and toxicology screen is currently pending. Patient stated he may have used 18 versus 14 units of Humalog to attempted take his life. Patient was also wearing insulin pump at the time. Patient appears to be back at baseline on D5 1/2 normal saline at 01:25 mL/hour with a one-to-one in place and psychiatric consult pending. Suicide attempt using insulin 1:[address] Psychiatry consulted Patient can not leave AMA, section 12 completed by ED provider Acute Metabolic encephalopathy secondary to severe hypoglycemia in known type 1 diabetic - resolved Metabolic encephalopathy has resolved, patient appears to be back to his baseline alert and orientated x3 with normal neurological exam CT head negative CXR negative for evidence of aspiration or acute illness Unclear if patient used only Humalog insulin for suicide attempt. Close monitoring in place. Ammonia level was normal Acetaminophen and aspirin levels are undetected. tox screen + for marijuana and cocaine VBG reassuring, CO2 was normal Insulin pump was removed upon arrival in the ED T1DM transition baseline treseba to dose adjusted Lantus (equivalent dose is 16U, will start with 8U and titrate as needed due to hypoglycemia on arrival) cover with SSI, follow POCS, so far stable off of d5; tolerating diet ADA diet Subclinical Hypothyroidism (TSH 6.24, FT4 0.93N) Based on patient's records patient has a history of this Patient will need outpatient follow-up with labs repeated in 4 weeks HX of cocaine/ marijuana use Patient requesting hepatitis and HIV testing which has been ordered Tobacco dependence Pt counseled, pt deferred need for NRT at this time MDD/Anxiety/ Hx of suicide attempts Psychiatry consulted Pt states he does have psychiatric care in the community Care team to review closer to discharge for inpatient psych placement Continue 1:1 Qtc on ECG WNL resume baseline meds DVT prophylaxis: Lovenox Time Spent With Patient Time: Total time managing care of this patient today ____ minutes.
[2024-09-30 13:49] LABS: Glucose, Whole Blood 290 mg/dL (60-115)
--- NOTE | 2024-09-30 15:25 | MHC.CM.PN ---
DX AMS SA 1:[address] Pt states that he lives by himself. He is independent with all functional mobility. A HCP has been documented. It has been scanned into Pt's EMR. He named his Mother as HCP. DP Pending [facility] Eval [facility] vs home self care. Patient will arrange for transport home from a family member.
[2024-09-30 16:00] VITALS: BP 134/51; PULSE 93; RESP 14; TEMP 36.1; O2SAT 97
[2024-09-30 17:22] LABS: Glucose, Whole Blood 215 mg/dL (60-115)
[2024-09-30] MEDS: 0.9 % Sodium Chloride Flush 3 ML SYRINGE IVFLUSH ×2 (17:39→22:09)
[2024-09-30 19:55] LABS: Glucose, Whole Blood 151 mg/dL (60-115)
[2024-09-30 19:58] VITALS: BP 137/86; PULSE 78; RESP 16; TEMP 36.5; O2SAT 97
--- NOTE | 2024-09-30 21:36 | PC.NURSE ---
EKG done and sent to Dr Boss to review.
[2024-10-01 03:04] VITALS: BP 131/78; PULSE 74; RESP 18; TEMP 36.8; O2SAT 98
[2024-10-01 07:21] VITALS: BP 125/80; PULSE 72; RESP 16; TEMP 36.3; O2SAT 98
[2024-10-01 07:23] LABS: Glucose, Whole Blood 163 mg/dL (60-115)
[2024-10-01] MEDS: 0.9 % Sodium Chloride Flush 3 ML SYRINGE IVFLUSH (07:40)
[2024-10-01] MEDS: Insulin Glargine,Hum.rec.anlog 100 UNIT/ML 10 ML VIAL 8 UNIT SUBCUT (07:40)
--- NOTE | 2024-10-01 10:45 | P.DS_ITS ---
DS: Providers Provider Date of Service: 10/01/24 Date of admission: 09/29/24 20:58 Date of discharge: 10/01/24 Primary care physician: Unknown Physician Consults: 09/29/24 21:04 Consult to Psychiatry Routine Consulting Provider: NAYELI Psych Covering Reason for consultation: SI used insulin Has provider been notified: No 09/29/24 21:59 Consult to Case Management Routine Comment: primary care provider needed 09/30/24 17:17 Inpt CARE Team Crisis Consult Routine Comment: Reason for consultation: medically clear; intentional OD via insulin DS: Diagnosis Discharge Diagnosis (1) Suicide attempt: Status: Acute DS: Summary Hospital Course Hospital Course: From H&P on the day of admission Patient is a 34-year-old black male with a past medical history insulin-dependent diabetes type 1 diagnosed as a teenager currently using insulin pump, MDD and anxiety, substance use disorder, marijuana use, tobacco dependence, subclinical hypothyroidism, hyperlipidemia was brought in by ambulance after family called due to finding patient unresponsive and extremely diaphoretic. Patient's blood glucose on the scene was 30 mg/dL. Received D10/250 mL and glucose [place] to 222 but patient remained lethargic then resistant to care when IV placement was attempted in the field. Patient arrived with insulin pump in place but this was removed in the emergency department. Blood glucose on arrival to the ED was back down to 40. Patient remained lethargic and unresponsive. Patient received an additional amp of D50 and blood sugar is now staying over 100 and patient is currently on a D5 half- normal saline infusion at 125 mL. Per ED provider's note patient did receive 1 dose of Narcan with no change in response initially. When patient did finally awaken, patient stated he was suicidal. Patient told ED provider he took 18 units of insulin (unknown if long or short acting). Toxicology screen currently pending. Chest x-ray negative for any acute findings. Head CT negative for any acute findings. Ammonia level normal. VBG stable noting no CO2 retention. Patient wrapped in warm blankets as body temp remains 97.2. Patient is able to protect his airway at this time. Patient is seen in the emergency department for admission and is currently awake, able to follow commands and verbal. Patient able to speak in sentences and provided minimal history regarding medical/surgical history and today's events. Patient did state he thought he took 14 units of Humalog and was attempting to take his life. Patient did not want to elaborate further but has been staying with his parents due to safety concerns. Patient states he has attempted suicide in the past. TSH elevated at 6.24 and free T4 is normal. Based on patient's record patient has a history of subclinical hypothyroidism. Patient does state he kind of has a primary care physician but would not elaborate. Patient asked that staff to not contact his parents to provide update. One-to-one currently in place. Psychiatric consult placed. Patient denies history of IV drug abuse but is requesting HIV and hepatitis testing. Suicide attempt using insulin Section 12 was completed by ED provider. One-to-one sitter was in place for safety. Once medically clear patient was evaluated by care team who recommended inpatient psychiatric care. Patient will be transferred to in 5 for further m anagement. Acute Metabolic encephalopathy secondary to severe hypoglycemia in known type 1 diabetic - resolved. All other workup negative T1DM Weaned off of D5. transitioned from baseline treseba to dose adjusted Lantus (equivalent dose is 16U, will start with 8U and titrate as needed due to hypoglycemia on arrival). Blood sugar currently stable with Lantus dose. Continue diabetic diet. Cover with hospital sliding scale. Can resume previous medications upon discharge. Subclinical Hypothyroidism (TSH 6.24, FT4 0.93N) Based on patient's records patient has a history of this. Patient will need outpatient follow-up with labs repeated in 4 weeks HX of cocaine/ marijuana use Patient requesting hepatitis and HIV testing which is negative Tobacco dependence Pt counseled, pt deferred need for NRT at this time Time Attestation Discharge Coordination Time (in mins): 32 Quality: Safe Use of Opioids Does Pt have an Active Cancer Diagnosis on the Problem List?: No Quality: Stroke Does the patient have a stroke diagnosis?: No Physical Exam Vital Signs: Vital Signs: Last Vital Signs Temp 97.3 F 10/01/24 07:21 Pulse 72 10/01/24 07:21 Resp 16 10/01/24 07:21 BP 125/80 10/01/24 07:21 Pulse Ox 98 10/01/24 07:21 O2 Del Method Room Air 10/01/24 07:21 BMI result Body Mass Index 21.1 Const: General: cooperative, comfortable, no acute distress, alert and awake Nutritional Appearance: average body habitus Orientation/consciousness: patient oriented x3 Resp: Effort & Inspection: normal respiratory effort, able to speak in complete sentences, no respiratory distress and no use of accessory muscles Cardio: Rate: regular rate GI: Inspection: No distended Palpation (GI): Soft to palpation and nontender Neuro: General: patient oriented x3, moves all extremities and CN's II-XI intact bilaterally DS: Data Data Completed and Pending Labs on day of discharge: Laboratory Results - last 24 hr 09/30/24 09/30/24 09/30/24 11:16 12:32 13:46 POC Glucose 126 H 290 H Urine Color Yellow Urine Appearance Clear Urine pH 8.0 Ur Specific [place] 1.025 Urine Protein Trace Urine Glucose (UA) 100 H Urine Ketones Trace Urine Blood Negative Urine Nitrite Negative Ur Leukocyte Esterase Trace H Urine RBC 0-2 Urine WBC 0-5 Ur Squamous Epith Cells 0-2 Urine Bacteria None Seen Hyaline Casts 0-2 Urine Opiates Screen Not Detected Ur Buprenorphine Scrn Not Detected Ur Oxycodone Screen Not Detected Urine Methadone Screen Not Detected Urine Fentanyl Screen Not Detected Ur Barbiturates Screen Not Detected Ur Phencyclidine Scrn Not Detected Ur Amphetamines Screen Not Detected U Benzodiazepines Scrn Not Detected Urine Cocaine Screen POSITIVE H U Marijuana (THC) Screen POSITIVE H 09/30/24 09/30/24 10/01/24 17:18 19:51 07:18 POC Glucose 215 H 151 H 163 H Urine Color Urine Appearance Urine pH Ur Specific [place] Urine Protein Urine Glucose (UA) Urine Ketones Urine Blood Urine Nitrite Ur Leukocyte Esterase Urine RBC Urine WBC Ur Squamous Epith Cells Urine Bacteria Hyaline Casts Urine Opiates Screen Ur Buprenorphine Scrn Ur Oxycodone Screen Urine Methadone Screen Urine Fentanyl Screen Ur Barbiturates Screen Ur Phencyclidine Scrn Ur Amphetamines Screen U Benzodiazepines Scrn Urine Cocaine Screen U Marijuana (THC) Screen Discharge Plan Discharge Anticipated Discharge Date/Time: 10/01/24 10:50 Patient Disposition: Xfer Psychiatric Hosp Discharge Diagnosis: overdose with insulin Referrals: Physician,Unknown J [Primary Care Provider, Medical] - 1 Week Discharge Medications: New insulin glargine [Lantus U-100 Insulin] 100 unit/mL Solution 8 unit subcut DAILY Qty: 10 0RF melatonin 3 mg Tablet 6 mg PO BEDTIME PRN (Reason: Insomnia) Qty: 30 0RF insulin lispro [Admelog U-100 Insulin lispro] 100 unit/mL Solution See Protocol subcut QIDACHS Qty: 3 0RF Protocol: Insulin Correction Scale Less than or equal to 110 ---- Give (units): 0 111 to 150 Give (units): 0 151 to 200 Give (units): 2 201 to 250 Give (units): 4 251 to 300 Give (units): 6 301 to 350 Give (units): 8 Greater than 350 Give (units): 10 Call MD if Blood Glucose > : 350 Continued sertraline 100 mg tablet 100 mg PO DAILY PRN (Reason: mood) hydroxyzine HCl 25 mg Tablet 25 mg PO Q6H PRN (Reason: mild anxiety) 30 Days Qty: 60 0RF trazodone 100 mg tablet 100 mg PO BEDTIME PRN (Reason: for insomnia) 30 Days Qty: 90 1RF Held insulin lispro 100 unit/mL solution See Rx Instructions .ROUTE USEASDIRECTD MDD 42 units 30 Days Qty: 20 6RF Hold Instructions: use hospital sliding scale during hospitalization Rx Instructions: less than 80, eat first then 1 click 80-150 2 click 151-200 4 clicks 201-250 5 clicks 251-300 6-7 clicks over 300 7 clicks use as directed; vials ordered for use with CeQur. insulin degludec [Tresiba FlexTouch U-200] 200 unit/mL (3 mL) insulin pen 24 unit subcut DAILY 30 Days Qty: 6 6RF Hold Instructions: Converted to Lantus during hospitalization No Action (DME) CeQur Simplicity Guest Experience Manager Misc See Rx Instructions .ROUTE .MEDSUPPLY Qty: 1 1RF Rx Instructions: As directed for use with CeQur insulin patch (DME) CeQur Simplicity 2 unit device See Rx Instructions .ROUTE .MEDSUPPLY Qty: 8 11RF Rx Instructions: every 4 days to administer insulin Discharge Orders: Discharge Order (Routine); Ordered 10/01/24 Ordered By: Angelia East Activity on Discharge: As tolerated Stand Alone Forms: Patient Portal Discharge page Print Language: Angolan Care Plan Goals: see below Health Concerns: Type 1 diabetes with intentional overdose of insulin Plan of Treatment: Transfer to inpatient psychiatric floor for further care T1DM - At baseline uses insulin pump which has been removed. Tresiba has been converted to Lantus at a lower dose for hospitalization. cover with sliding scale. Assessment: See discharge summary
--- NOTE | 2024-10-01 10:57 | MHC.CM.PN ---
PT CLEARED TO DC TODAY TO INPATIENT PSYCH
[2024-10-01 11:26] LABS: Glucose, Whole Blood 226 mg/dL (60-115)
== END 2024-10-01 13:39 | DRG 817 ==
LOC: HO.ED 21:06 → HO.EDOVER 21:13 → HO.S3 09-30 07:35
PROVIDERS: Nurse Practitioner Family; Admitting Provider Student in an Organized Health Care Education/Training Program; Emergency Provider Emergency Medicine Emergency Medical Services; PCP Internal Medicine; Visit Provider Physician Assistant Medical
DX: T38.3X2A Poisoning by insulin and oral hypoglycemic [antidiabetic] drugs, intentional self-harm, initial encounter (principal); G93.41 Metabolic encephalopathy; E10.649 Type 1 diabetes mellitus with hypoglycemia without coma; E03.8 Other specified hypothyroidism; F32.9 Major depressive disorder, single episode, unspecified; F41.9 Anxiety disorder, unspecified; Z91.51 Personal history of suicidal behavior; F14.90 Cocaine use, unspecified, uncomplicated; F17.210 Nicotine dependence, cigarettes, uncomplicated; Z71.6 Tobacco abuse counseling; Z79.899 Other long term (current) drug therapy
CPT/HCPCS: 36415; 70450; 71045; 80048; 80053; 80061; 80076; 80143; 80179; 80307; 81001; 82140; 82803; 82947; 83036; 83605; 83690; 83735; 84439; 84443; 84484; 85025; 86704; 86706; 86709; 86803; 87340; 87389; 93005; 99285; J1650; J2312; S9485

== ENCOUNTER → 2024-09-29 18:06 | Outpatient (BNV) | payer OTHER, SELFPAY | PROVIDERS: Emergency Provider Emergency Medicine Emergency Medical Services; Visit Provider Student in an Organized Health Care Education/Training Program | DX: R41.82 Altered mental status, unspecified (principal); R07.9 Chest pain, unspecified | CPT/HCPCS: 70450; 71045 ==

== ENCOUNTER → 2024-09-29 18:06 | Outpatient (BNV) | payer OTHER, SELFPAY | PROVIDERS: Admitting Provider Student in an Organized Health Care Education/Training Program; Emergency Provider Emergency Medicine Emergency Medical Services; PCP Internal Medicine; Visit Provider Internal Medicine Cardiovascular Disease | DX: E16.2 Hypoglycemia, unspecified (principal) | CPT/HCPCS: 93010 ==

== ENCOUNTER 2024-09-29 20:58 | Outpatient (BNV) | payer OTHER, SELFPAY | END 2024-09-30 21:06 | PROVIDERS: Admitting Provider Student in an Organized Health Care Education/Training Program; Emergency Provider Emergency Medicine Emergency Medical Services; PCP Internal Medicine; Visit Provider Internal Medicine Cardiovascular Disease | DX: Z13.6 Encounter for screening for cardiovascular disorders (principal) | CPT/HCPCS: 93010 ==

== ENCOUNTER → 2024-09-29 20:58 | Outpatient (BNV) | payer OTHER, SELFPAY | PROVIDERS: Admitting Provider Student in an Organized Health Care Education/Training Program; Emergency Provider Emergency Medicine Emergency Medical Services; Visit Provider Nurse Practitioner Family | DX: T14.91XA Suicide attempt, initial encounter (principal) | CPT/HCPCS: 99223; 99499 ==

== ENCOUNTER 2024-10-01 12:40 | Inpatient (IN) | payer OTHER, SELFPAY ==
--- OUTSIDE RECORDS SUMMARY | 2024-10-01 12:42 | XMS_ITS | Clinical Summary ---
Author Organization [facility] ity Address [address] [place] [address] Care Team Providers Care Skidder Loader Name Role Phone Unavailable Primary Care Provider [...] - 19+ 3-dose series) 2010 COVID-19 Vaccine ( - 2023-2 5 season) 2023 Influenza Vaccine (#1) 2024 [...]
[2024-10-01 12:44] VITALS: BP 138/87; PULSE 86; RESP 16; TEMP 36.6; O2SAT 98
[2024-10-01 12:45] VITALS: BMI 20.4
[2024-10-01 16:51] LABS: Glucose, Whole Blood 413 mg/dL (60-115)
--- NOTE | 2024-10-01 18:38 | PC.ADMIT ---
Keira is a 34yr old male with MDD, substance use disorder, Type 1 diabetes & subclinical hypothyroidism. He came to us today after being medically cleared from the med-surg unit. He was originally brought [place] [facility] after being found unresponsive at home by his parents and his glucose level was 30. Although the patient denies it was a suicide attempt, it is presumed likely it could have been an intentional insulin overdose, as a similar situation has happened before. Keira is A&Ox4, calm, appropriate & engaged with good eye contact. Keira is active with [facility] for therapy & psychiatry. He lives at home with his parents who are supportive. Keira is known to [facility] behavioral [facility] & has previously been inpatient on M5. He denies trauma history. Keira denies SI/HI/AVH and contracts for safety while here. He signed in on a CV. Skin check is unremarkable. Keira was reoriented to the unit & placed on 15min safety checks. He will be on QID poc's with sliding scale insulin while here.
[2024-10-01 19:46] VITALS: BP 142/90; PULSE 89; RESP 18; TEMP 37; O2SAT 99
--- NOTE | 2024-10-01 23:12 | HO.PSYADMNOT ---
HPI Date of Service: 10/01/24 Chief Complaint: SI Sources of Information: patient interviewed, chart reviewed and crisis/core team assessment reviewed HPI Subjective Notes: Conditional Voluntary Healthcare Proxy: No Guardianship: No Medical Problems Affecting Mental Status: No Narrative: . Pt is a 34 year old, Palestinian and Anguillan speaking male who appears his stated age that is evaluated on the medical floor at [facility] following an overdose of insulin. Pt appears to be a poor historian at this time and attempts to minimize the severity of his behavior leading him to the medical floor. Patient was intentional overdose of insulin. Pt reported that he does not have a good recollection of the events leading him to the medical floor however, indicated that he was having issues with his sensor that reads his blood sugar and indicated that he began self administering insulin. Met with patient at 1940 in exam room. C/C I had low blood sugar. My sugar was super low. I gave a little too much about 14 units. The sensor does not work well . Blood sugar upon arrival was only 30. Patient denies it was a suicide attempt. Precipitants: Since being diagnosed with diabetic type 1, and getting stress in life. He has thoughts of not to want to leave anymore if he thinks he life . He reports that his teeth was ruined due to drug use now he can not have it fixed due to insurance issues in addition to have to do with his diabetic. 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 Then he has to move back home with his parents. Denies SI/SIB/HI/AVH. Reports suicidal thoughts history. Reports history of suicide attempts via overdose on insulin in the past. Denies this time is an attempt stating ? It was accident . Reports no sleep or appetite issues. Mood was depressed, hopeless but okay now . Denies medical issues except for diabetic Denies surgical history. Feeling like he has no goals or expectation for this admission to working on while he is here. Past Psychiatric History: Psych hosp admits: Dec 2023, 2024 on M5 SA: first suicide attempt October 07 2023 took heroin. 2nd attempt Dec 2023 with Insulin SIB: none HIB: none outpt: Psychiatrist and therapist ([facility]) -PCP at [facility] Medical Evaluation Reviewed: Yes [facility] Medical History Suicidal ideation Anxiety Suicide attempt Nicotine dependence MDD (major depressive disorder), severe Cocaine use disorder Noncompliance Dental decay Hyperlipidemia LDL goal <100 Surgical History No history of previous surgery Family History: Father: by heroin overdose. Mother: Inpatient for 1 month, several years ago, was acutely suicidal. She has depression Social History: lives mom/dad who are supportive Patient was raised by both parents, has 1 sister and 1 brother. After parents , father of heroin overdose. Mother remarried. Patient currently lives with mother and stepfather. Recently lost job. Did not complete high school. Eleventh grade Substance History: Reports using crack a lot but has been cutting down lately from 6 rocks to 1 1 rock. Five dollars worth each. He started using crack when he was 18 years old. Using marijuana daily since he was 18. Denies alcohol use. Used to smoke a couple cigarettes a day but lately his thoughts for about 1 or 2 months ago. Reports craving for crack marijuana. Trauma History: denies Diagnostics Vital Signs (24Hr): Vital Signs - 24 hr 10/01/24 12:44 10/01/24 19:46 Temperature 97.8 F 98.6 F Pulse Rate 86 89 Respiratory Rate 16 18 Blood Pressure 138/87 142/90 H Pulse Oximetry 98 99 Oxygen Delivery Method Room Air Room Air BMI result Body Mass Index 20.4 Labs Labs: Laboratory Results - last 48 hr 10/01/24 16:47 POC Glucose 413 H* Meds/Allergies Meds Home Medications ?Medication ?Instructions ?Recorded ?Confirmed ?Type sertraline 100 mg tablet 100 mg PO DAILY 09/29/24 10/01/24 History Allergies Allergies Allergy/AdvReac Type Severity Reaction Status Date / Time No Known Allergies (No Known Allergy Verified 09/29/24 17:43 Allergies*) Mental Status Exam Mental Status Exam Narrative: Patient is alert and oriented x4; behavior is cooperative, mild to moderate anxiety depression; patient is not in distress; dressed in own clothing with adequate hygiene; mood is described as depressed, hopeless and affect congruent; eye contact appropriate; Speech is normal rate, volume and prosody and not pressured; no psychomotor agitation/retardation present; thought process is organized but not goal directed; Thought content is WNL, pertinent to relevant topics and without any delusional content, paranoid ideation or grandiosity. However he appears to be minimize his suicide attempt via overdose on insulin. Denies any SI/SIB/HI. Denies AH and there is no evidence of perceptual disturbance. Patient's insight and judgment poor/impaired Assessment & Plan Assessment & Plan (1) Suicide attempt: Status: Acute Code(s): T14.91XA - Suicide attempt, initial encounter (2) Cocaine use disorder: Status: Acute Code(s): F14.10 - Cocaine abuse, uncomplicated (3) Diabetes mellitus type 1, uncontrolled: Status: Acute Code(s): E10.65 - Type 1 diabetes mellitus with hyperglycemia (4) MDD (major depressive disorder), severe: Status: Acute Code(s): F32.2 - Major depressive disorder, single episode, severe without psychotic features (5) Cannabis use disorder: Status: Acute Code(s): F12.90 - Cannabis use, unspecified, uncomplicated Plan HPI: Pt is a 34 year old, Palestinian and Anguillan speaking male with history of depression, type 1 diabetes who appears his stated age that is evaluated on the medical floor at [facility] following an overdose of insulin. Pt appears to be a poor historian at this time and attempts to minimize the severity of his behavior leading him to the medical floor. Patient was intentional overdose of insulin. Pt reported that he does not have a good recollection of the events leading him to the medical floor however, indicated that he was having issues with his sensor that reads his blood sugar and indicated that he began self administering insulin. Upon arrival, his blood sugar was 30. Continued to minimize of his suicide attempt, denies it as an attempt rather than the sensor of his insulin pump was not working right. Has been increased depression and hopeless the past couple of years, being diabetic and dental issues due to drug use . He fees hopeless. Reports not taking his antidepressant in the past 3 days prior to coming to the hospital. 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 Has to move back to his parents. He also used crack and marijuana daily even though he reports he has been cutting down a lot on crack use due to the fact that it ruined his teeth. Formulation/clinical reasoning: Not taking his antidepressant for 3 days, overdose on insulin, giving him 14 units not knowing home much the insulin needed, given him self 14 units. Blood sugar was only 30 upon arrival in the ED. he was medically admitted to medical floor. History of 3 total suicide attempts-want overdose on heroin per old record, previously overdose on insulin. Minimize of his mental health, minimize suicide attempt, increasing stress from not able to work, low self esteem related to his teeth. Feeling depressed and hopeless. Not goal directed. Given the above information, patient would definitely benefit from restrictive environment for his safety, and medication management. Hospital course: 10/01/24: Currently has no safety concerns Continue with sertraline 100 mg daily for depression. He has not taking that for 3 days to be admitted. Reports he is supposed to take trazodone 100 mg at bedtime for insomnia. However reports diarrhea and he stopped taking that from home. Given melatonin 6 mg at bedtime scheduled for insomnia. P.r.n. trazodone for sleep if melatonin is not effective. Lantus 8 units daily in the morning. Patient have sliding-scale 4 times a day to monitor blood sugar and given insulin lispro accordingly. Review p.r.n. hydroxyzine and Zyprexa available for anxiety and severe agitation/anxiety Will monitor his blood sugar for hyper/ hypoglycemic. His own insulin pump was removed from the emergency room. Plan Patient on 15 minute checks for safety. Admitted to M5. CV. Work with treatment team to do collateral and aftercare. Patient may be benefit to refer to a compensation/benefits specialist. We will do some basic labs work the next day per protocol. Patient educated on: diagnosis, medication risk/benefits, substance abuse and therapeutic strategies Informed Consent: understands Reason for continued inpatient stay Substantial Risk for: harm to self (Overdosed on insulin) and med/psych decompensation Statement Statement: I have reviewed the history and physical and performed a pertinent examination on my patient. No changes have occurred unless specified. If the History and Physical was not performed prior to admission, the Hospitalist's service will be consulted for completing the admission physical. Time Spent With Patient Time: Total time managing care of this patient today ____ minutes.
[2024-10-02 02:57] LABS: Glucose, Whole Blood 88 mg/dL (60-115)
[2024-10-02 07:47] LABS: Glucose, Whole Blood 261 mg/dL (60-115)
[2024-10-02 08:02] VITALS: BP 123/61; PULSE 75; RESP 16; TEMP 37; O2SAT 99
[2024-10-02] MEDS: Insulin Glargine,Hum.rec.anlog 100 UNIT/ML 10 ML VIAL 8 UNIT SUBCUT (08:52)
--- NOTE | 2024-10-02 09:57 | P.PNPSI_ITS ---
Subjective Subjective Date of Service: 10/02/24 Reason For Visit: SI Interim History: met with patient; discussed with team; reviewed chart pt admits he messed with insulin pump/indicator to intentionally overdose onf insulin He says at that moment, i didn't really care...at that moment, yea i wanted to ... now however, he denies any no SI, says he feels regular, like normal... moments like this happen every few months...and always in afternoon. He has no warning. He feels medications otherwise are helpful. He agrees to increase Zoloft to 150mg to see if increase can prevent such moments; also agrees to try Clonidine patch to see if this too can mitigate such moments, as he often forgets to take medications in the morning. Mental Status Exam Mental Status Exam Narrative: Pt is alert and oriented; behavior is cooperative, friendly and calm; patient is not in distress; dressed in casual attire, towel on head, lip rings; adequate hygiene; mood is described as good...regular...normal and affect congruent; eye contact appropriate; Speech is normal rate, volume and prosody and not pressured; no psychomotor agitation/retardation present; thought process is organized and goal directed; Thought content is on tx; otherwise pertinent to relevant topics and without any delusional content, paranoid ideations or grandiosity; denies any SI/HI. Denies AVH and there is no evidence of perceptual disturbance. Patients insight and judgment appear intact. Diagnostics Vital Signs (24Hr): Vital Signs - 24 hr 10/01/24 12:44 10/01/24 19:46 10/02/24 08:02 Temperature 97.8 F 98.6 F 98.6 F Pulse Rate 86 89 75 Respiratory Rate 16 18 16 Blood Pressure 138/87 142/90 H 123/61 Pulse Oximetry 98 99 99 Oxygen Delivery Method Room Air Room Air Room Air BMI result Body Mass Index 20.4 Labs 10/02/24 10:12 Labs: Laboratory Results - last 48 hr 10/01/24 10/01/24 10/02/24 16:47 20:44 07:42 POC Glucose 413 H* 88 261 H Medications Medications Current Medications Acetaminophen (Acetaminophen 325 Mg Tablet) 650 mg PO Q6H PRN PRN Reason: Headache/Pain, Scale 1-10 Al Hydroxide/Mg Hydroxide (Magnesium Hydrox/Alum Hydrox 30 Ml Oral.Susp) 30 ml PO Q6H PRN PRN Reason: Heartburn/Nausea Dextrose (Dextrose 50 % 25 Gm/50 Ml Syringe) 25 gm IVPUSH Q15M PRN; Protocol PRN Reason: per Hypoglycemia Standing Ord. Glucose (Glucose Gel 15 Gm Gel..Gram.) 15 gm PO Q15M PRN; Protocol PRN Reason: per Hypoglycemia Standing Ord. Hydroxyzine HCl (Hydroxyzine Hcl 25 Mg Tablet) 25 mg PO Q6H PRN PRN Reason: mild anxiety Last Admin: 10/01/24 21:45 Dose: 25 mg Insulin Glargine (Insulin Glargine,Hum.Rec.Anlog 100 Unit/Ml 10 Ml Vial) 8 unit SUBCUT DAILY [facility] Last Admin: 10/02/24 08:52 Dose: 8 unit Insulin Human Lispro (Insulin Lispro 100 Unit/Ml 3 Ml Vial) 0 unit SUBCUT QIDACHS [facility]; Protocol Last Admin: 10/02/24 08:52 Dose: 6 unit Magnesium Hydroxide (Milk Of Magnesia 30 Ml Oral.Susp) 30 ml PO DAILY PRN PRN Reason: Constipation Melatonin (Melatonin 3 Mg Tablet) 6 mg PO BEDTIME [facility] Last Admin: 10/01/24 21:46 Dose: 6 mg Nicotine (Nicotine 21 Mg Patch.Td24) 21 mg TRANSDERMA DAILY PRN PRN Reason: smoking cessation Nicotine Polacrilex (Nicotine Polacrilex 2 Mg Gum) 4 mg BUCCAL Q2H PRN PRN Reason: Nicotine Cravings Olanzapine (Olanzapine 5 Mg Tablet) 5 mg PO TID PRN PRN Reason: agitation Sertraline HCl (Sertraline Hcl 100 Mg Tablet) 100 mg PO DAILY [facility] Last Admin: 10/02/24 08:51 Dose: 100 mg Trazodone HCl (Trazodone Hcl 50 Mg Tablet) 50 mg PO BEDTIME MRX1 PRN PRN Reason: Insomnia Last Admin: 10/01/24 21:45 Dose: 50 mg Allergies Allergies Allergy/AdvReac Type Severity Reaction Status Date / Time No Known Allergies (No Known Allergy Verified 09/29/24 17:43 Allergies*) Assessment & Plan Assessment & Plan (1) MDD (major depressive disorder), severe: Status: Acute Code(s): F32.2 - Major depressive disorder, single episode, severe without psychotic features (2) Suicide attempt: Status: Acute Code(s): T14.91XA - Suicide attempt, initial encounter (3) Cocaine use disorder: Status: Acute Code(s): F14.10 - Cocaine abuse, uncomplicated (4) Diabetes mellitus type 1, uncontrolled: Status: Acute Code(s): E10.65 - Type 1 diabetes mellitus with hyperglycemia (5) Cannabis use disorder: Status: Acute Code(s): F12.90 - Cannabis use, unspecified, uncomplicated Plan HPI: Pt is a 34 year old, Armenian and Central [place] speaking male with history of depression, type 1 diabetes who appears his stated age that is evaluated on the medical floor at [facility] following an overdose of insulin. Pt appears to be a poor historian at this time and attempts to minimize the severity of his behavior leading him to the medical floor. Patient was intentional overdose of insulin. Pt reported that he does not have a good recollection of the events leading him to the medical floor however, indicated that he was having issues with his sensor that reads his blood sugar and indicated that he began self administering insulin. Upon arrival, his blood sugar was 30. Continued to minimize of his suicide attempt, denies it as an attempt rather than the sensor of his insulin pump was not working right. Has been increased depression and hopeless the past couple of years, being diabetic and dental issues due to drug use . He fees hopeless. Reports not taking his antidepressant in the past 3 days prior to coming to the hospital. 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 Has to move back to his parents. He also used crack and marijuana daily even though he reports he has been cutting down a lot on crack use due to the fact that it ruined his teeth. Formulation/clinical reasoning: Not taking his antidepressant for 3 days, overdose on insulin, giving him 14 units not knowing home much the insulin needed, given him self 14 units. Blood sugar was only 30 upon arrival in the ED. he was medically admitted to medical floor. History of 3 total suicide attempts-want overdose on heroin per old record, previously overdose on insulin. Minimize of his mental health, minimize suicide attempt, increasing stress from not able to work, low self esteem related to his teeth. Feeling depressed and hopeless. Not goal directed. Given the above information, patient would definitely benefit from restrictive environment for his safety, and medication management. Hospital course: 10/01/24: Currently has no safety concerns Continue with sertraline 100 mg daily for depression. He has not taking that for 3 days to be admitted. Reports he is supposed to take trazodone 100 mg at bedtime for insomnia. However reports diarrhea and he stopped taking that from home. Given melatonin 6 mg at bedtime scheduled for insomnia. P.r.n. trazodone for sleep if melatonin is not effective. Lantus 8 units daily in the morning. Patient have sliding-scale 4 times a day to monitor blood sugar and given insulin lispro accordingly. Review p.r.n. hydroxyzine and Zyprexa available for anxiety and severe agitation/anxiety Will monitor his blood sugar for hyper/ hypoglycemic. His own insulin pump was removed from the emergency room. 10/02 pt admits he messed with insulin pump/indicator to intentionally overdose onf insulin He says at that moment, i didn't really care...at that moment, yea i wanted to ... now however, he denies any no SI, says he feels regular, like normal... moments like this happen every few months...and always in afternoon. He has no warning. He feels medications otherwise are helpful. He agrees to increase Zoloft to 150mg to see if increase can prevent such moments; also agrees to try Clonidine patch to see if this too can mitigate such moments, as he often forgets to take medications in the morning. Plan Patient on 15 minute checks for safety. CV. Increase Zoloft to 150 mg for continued anxious/depressed episodes Start Clonidine Patch (Catapres) to mitigate anxious/depressive movements; last 7 days Work with treatment team to do collateral and aftercare. Patient may be benefit to refer to a software applications specialist. We will do some basic labs work the next day per protocol. Patient educated on: diagnosis, medication risk/benefits and therapeutic strategies Informed Consent: understands Reason for continued inpatient stay Substantial Risk for: rapid decompensation Time Spent With Patient Time: Total time managing care of this patient today ____ minutes.
[2024-10-02 11:00] LABS: Hemoglobin A1C 227.8554 umol/L; Total Hemoglobin (HGBA1C) 3818.7218 umol/L
[2024-10-02 11:02] LABS: Alanine Aminotransferase 23 U/L (0-40); Albumin Level 4.2 g/dL (3.5-5.0); Alkaline Phosphatase 78 U/L (39-117); Anion Gap 12 (12-20); Aspartate Amino Transferase 20 U/L (5-37); Blood Urea Nitrogen 16 mg/dL (9-16); Calcium 10.0 mg/dL (8.4-10.2); Carbon Dioxide 29 mmol/L (22-29); Chloride 101 mmol/L (96-108); Cholesterol 212 mg/dL (<200); Creatinine Clr Calc Pharmacy 106.2; Estimated Glomerular Filt Rate > 60; HDL Cholesterol 52 mg/dL (>40); Potassium 5.0 mmol/L (3.3-5.1); Sodium 137 mmol/L (135-145); Total Protein 7.1 g/dL (6.5-8.0); Triglycerides 110 mg/dL (<150)
[2024-10-02 11:41] LABS: Glucose, Whole Blood 337 mg/dL (60-115)
[2024-10-02 14:23] VITALS: BP 118/71; PULSE 92; RESP 16; O2SAT 97
[2024-10-02] MEDS: cloNIDine 0.1 MG PATCH.TDWK TRANSDERMA (14:26)
[2024-10-02 16:51] LABS: Glucose, Whole Blood 154 mg/dL (60-115)
[2024-10-02 18:00] VITALS: BP 128/83; PULSE 88; RESP 16; TEMP 36.6; O2SAT 97
[2024-10-02 19:35] VITALS: BP 135/85; PULSE 90; RESP 18; TEMP 36.9; O2SAT 100
[2024-10-02 20:17] LABS: Glucose, Whole Blood 219 mg/dL (60-115)
[2024-10-03 07:53] LABS: Glucose, Whole Blood 254 mg/dL (60-115)
[2024-10-03] MEDS: Insulin Glargine,Hum.rec.anlog 100 UNIT/ML 10 ML VIAL 8 UNIT SUBCUT (08:43)
[2024-10-03 08:47] VITALS: BP 111/55; PULSE 86; RESP 14; TEMP 36.9; O2SAT 97
--- NOTE | 2024-10-03 11:02 | HO.PSYCHPN ---
Subjective Subjective Date of Service: 10/03/24 Reason For Visit: SI Interim History: met with pt; discussed with team Patient remains feeling better, mood is good, no SI at all. Tolerating medication increases. Patient says he has insomnia but trazodone causes loose stool; discussed risks/side effects of mirtazapine and patient agrees to try Mental Status Exam Mental Status Exam Narrative: Pt is alert and oriented; behavior is cooperative, friendly and calm; patient is not in distress; dressed in casual attire, lip rings; adequate hygiene; mood is described as good and affect congruent; eye contact appropriate; Speech is normal rate, volume and prosody and not pressured; no psychomotor agitation/retardation present; thought process is organized and goal directed; Thought content is on tx; otherwise pertinent to relevant topics and without any delusional content, paranoid ideations or grandiosity; denies any SI/HI. Denies AVH and there is no evidence of perceptual disturbance. Patients insight and judgment are intact. Diagnostics Vital Signs (24Hr): Vital Signs - 24 hr 10/02/24 14:23 10/02/24 18:00 10/02/24 19:35 Temperature 97.8 F 98.4 F Pulse Rate 92 88 90 Respiratory Rate 16 16 18 Blood Pressure 118/71 128/83 135/85 Pulse Oximetry 97 97 100 Oxygen Delivery Method Room Air Room Air Room Air 10/03/24 08:47 Temperature 98.4 F Pulse Rate 86 Respiratory Rate 14 Blood Pressure 111/55 L Pulse Oximetry 97 Oxygen Delivery Method BMI result Body Mass Index 20.4 Labs 10/02/24 10:12 Labs: Laboratory Results - last 48 hr 10/01/24 10/01/24 10/02/24 16:47 20:44 07:42 Sodium Potassium Chloride Carbon Dioxide Anion Gap BUN Creatinine Estim Creat Clear Calc Estimated GFR POC Glucose 413 H* 88 261 H Random Glucose Estimat Average Glucose Hemoglobin A1c % Calcium Total Bilirubin AST ALT Alkaline Phosphatase Total Protein Albumin Triglycerides Cholesterol LDL Cholesterol, Calc HDL Cholesterol TSH 10/02/24 10/02/24 10/02/24 10:12 11:37 16:47 Sodium 137 Potassium 5.0 D Chloride 101 Carbon Dioxide 29 Anion Gap 12 BUN 16 Creatinine 0.80 Estim Creat Clear Calc 106.2 Estimated GFR > 60 POC Glucose 337 H 154 H Random Glucose 349 H Estimat Average Glucose 171 Hemoglobin A1c % 7.6 H Calcium 10.0 D Total Bilirubin 0.3 AST 20 ALT 23 Alkaline Phosphatase 78 Total Protein 7.1 Albumin 4.2 Triglycerides 110 Cholesterol 212 H LDL Cholesterol, Calc 138 H HDL Cholesterol 52 TSH 3.72 10/02/24 10/03/24 20:13 07:50 Sodium Potassium Chloride Carbon Dioxide Anion Gap BUN Creatinine Estim Creat Clear Calc Estimated GFR POC Glucose 219 H 254 H Random Glucose Estimat Average Glucose Hemoglobin A1c % Calcium Total Bilirubin AST ALT Alkaline Phosphatase Total Protein Albumin Triglycerides Cholesterol LDL Cholesterol, Calc HDL Cholesterol TSH Medications Medications Current Medications Acetaminophen (Acetaminophen 325 Mg Tablet) 650 mg PO Q6H PRN PRN Reason: Headache/Pain, Scale 1-10 Al Hydroxide/Mg Hydroxide (Magnesium Hydrox/Alum Hydrox 30 Ml Oral.Susp) 30 ml PO Q6H PRN PRN Reason: Heartburn/Nausea Clonidine (Clonidine 0.1 Mg Patch.Tdwk) 0.1 mg TRANSDERMA Sa@0900 [facility]; Protocol Last Admin: 10/02/24 14:26 Dose: 0.1 mg Dextrose (Dextrose 50 % 25 Gm/50 Ml Syringe) 25 gm IVPUSH Q15M PRN; Protocol PRN Reason: per Hypoglycemia Standing Ord. Glucose (Glucose Gel 15 Gm Gel..Gram.) 15 gm PO Q15M PRN; Protocol PRN Reason: per Hypoglycemia Standing Ord. Hydroxyzine HCl (Hydroxyzine Hcl 25 Mg Tablet) 25 mg PO Q6H PRN PRN Reason: mild anxiety Last Admin: 10/02/24 22:23 Dose: 25 mg Insulin Glargine (Insulin Glargine,Hum.Rec.Anlog 100 Unit/Ml 10 Ml Vial) 8 unit SUBCUT DAILY [facility] Last Admin: 10/03/24 08:43 Dose: 8 unit Insulin Human Lispro (Insulin Lispro 100 Unit/Ml 3 Ml Vial) 0 unit SUBCUT QIDACHS [facility]; Protocol Last Admin: 10/03/24 08:45 Dose: 6 unit Magnesium Hydroxide (Milk Of Magnesia 30 Ml Oral.Susp) 30 ml PO DAILY PRN PRN Reason: Constipation Melatonin (Melatonin 3 Mg Tablet) 6 mg PO BEDTIME [facility] Last Admin: 10/02/24 22:23 Dose: 6 mg Nicotine (Nicotine 21 Mg Patch.Td24) 21 mg TRANSDERMA DAILY PRN PRN Reason: smoking cessation Nicotine Polacrilex (Nicotine Polacrilex 2 Mg Gum) 4 mg BUCCAL Q2H PRN PRN Reason: Nicotine Cravings Olanzapine (Olanzapine 5 Mg Tablet) 5 mg PO TID PRN PRN Reason: agitation Sertraline HCl (Sertraline Hcl 50 Mg Tablet) 150 mg PO DAILY [facility] Last Admin: 10/03/24 08:43 Dose: 150 mg Trazodone HCl (Trazodone Hcl 50 Mg Tablet) 50 mg PO BEDTIME MRX1 PRN PRN Reason: Insomnia Last Admin: 10/02/24 22:23 Dose: 50 mg Allergies Allergies Allergy/AdvReac Type Severity Reaction Status Date / Time No Known Allergies (No Known Allergy Verified 09/29/24 17:43 Allergies*) Assessment & Plan Assessment & Plan (1) MDD (major depressive disorder), severe: Status: Acute Code(s): F32.2 - Major depressive disorder, single episode, severe without psychotic features (2) Suicide attempt: Status: Acute Code(s): T14.91XA - Suicide attempt, initial encounter (3) Cocaine use disorder: Status: Acute Code(s): F14.10 - Cocaine abuse, uncomplicated (4) Diabetes mellitus type 1, uncontrolled: Status: Acute Code(s): E10.65 - Type 1 diabetes mellitus with hyperglycemia (5) Cannabis use disorder: Status: Acute Code(s): F12.90 - Cannabis use, unspecified, uncomplicated Plan HPI: Pt is a 34 year old, French and [place] Islander speaking male with history of depression, type 1 diabetes who appears his stated age that is evaluated on the medical floor at [facility] following an overdose of insulin. Pt appears to be a poor historian at this time and attempts to minimize the severity of his behavior leading him to the medical floor. Patient was intentional overdose of insulin. Pt reported that he does not have a good recollection of the events leading him to the medical floor however, indicated that he was having issues with his sensor that reads his blood sugar and indicated that he began self administering insulin. Upon arrival, his blood sugar was 30. Continued to minimize of his suicide attempt, denies it as an attempt rather than the sensor of his insulin pump was not working right. Has been increased depression and hopeless the past couple of years, being diabetic and dental issues due to drug use . He fees hopeless. Reports not taking his antidepressant in the past 3 days prior to coming to the hospital. 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 Has to move back to his parents. He also used crack and marijuana daily even though he reports he has been cutting down a lot on crack use due to the fact that it ruined his teeth. Formulation/clinical reasoning: Not taking his antidepressant for 3 days, overdose on insulin, giving him 14 units not knowing home much the insulin needed, given him self 14 units. Blood sugar was only 30 upon arrival in the ED. he was medically admitted to medical floor. History of 3 total suicide attempts-want overdose on heroin per old record, previously overdose on insulin. Minimize of his mental health, minimize suicide attempt, increasing stress from not able to work, low self esteem related to his teeth. Feeling depressed and hopeless. Not goal directed. Given the above information, patient would definitely benefit from restrictive environment for his safety, and medication management. Hospital course: 10/01/24: Currently has no safety concerns Continue with sertraline 100 mg daily for depression. He has not taking that for 3 days to be admitted. Reports he is supposed to take trazodone 100 mg at bedtime for insomnia. However reports diarrhea and he stopped taking that from home. Given melatonin 6 mg at bedtime scheduled for insomnia. P.r.n. trazodone for sleep if melatonin is not effective. Lantus 8 units daily in the morning. Patient have sliding-scale 4 times a day to monitor blood sugar and given insulin lispro accordingly. Review p.r.n. hydroxyzine and Zyprexa available for anxiety and severe agitation/anxiety Will monitor his blood sugar for hyper/ hypoglycemic. His own insulin pump was removed from the emergency room. 10/02 pt admits he messed with insulin pump/indicator to intentionally overdose onf insulin He says at that moment, i didn't really care...at that moment, yea i wanted to ... now however, he denies any no SI, says he feels regular, like normal... moments like this happen every few months...and always in afternoon. He has no warning. He feels medications otherwise are helpful. He agrees to increase Zoloft to 150mg to see if increase can prevent such moments; also agrees to try Clonidine patch to see if this too can mitigate such moments, as he often forgets to take medications in the morning. 10/03 Patient remains feeling better, mood is good, no SI at all. Tolerating medication increases. Patient says he has insomnia but trazodone causes loose stool; discussed risks/side effects of mirtazapine and patient agrees to try Plan Patient on 15 minute checks for safety. CV. Start mirtazapine 7.5 mg q.h.s. Increase Zoloft to 150 mg for continued anxious/depressed episodes Start Clonidine Patch (Catapres) to mitigate anxious/depressive movements; last 7 days Work with treatment team to do collateral and aftercare. Patient may be benefit to refer to a education program specialist. We will do some basic labs work the next day per protocol. Patient educated on: diagnosis and medication risk/benefits Informed Consent: understands Reason for continued inpatient stay Substantial Risk for: stable for discharge and rapid decompensation Time Spent With Patient Time: Total time managing care of this patient today ____ minutes.
[2024-10-03 11:20] LABS: Glucose, Whole Blood 281 mg/dL (60-115)
[2024-10-03 13:00] VITALS: BP 121/70; PULSE 90; RESP 14; TEMP 36.4; O2SAT 100
[2024-10-03 15:37] LABS: Glucose, Whole Blood 187 mg/dL (60-115)
[2024-10-03 16:43] LABS: Glucose, Whole Blood 185 mg/dL (60-115)
[2024-10-03 19:39] VITALS: BP 154/65; PULSE 89; TEMP 36.9; O2SAT 99
[2024-10-03 20:03] LABS: Glucose, Whole Blood 279 mg/dL (60-115)
--- NOTE | 2024-10-04 03:18 | PC.NURSE ---
At approximately 0235, patient reported he had an episode of urinary incontinence that woke him.
[2024-10-04 07:49] LABS: Glucose, Whole Blood 267 mg/dL (60-115)
[2024-10-04 08:00] VITALS: BP 118/65; PULSE 74; RESP 16; TEMP 36.8; O2SAT 97
[2024-10-04] MEDS: Insulin Glargine,Hum.rec.anlog 100 UNIT/ML 10 ML VIAL 8 UNIT SUBCUT (08:22)
--- NOTE | 2024-10-04 09:36 | HO.PSYCHPN ---
Subjective Subjective Date of Service: 10/04/24 Reason For Visit: SI Interim History: met with patient; discussed with team Met patient says he is doing well., good mood, feeling his regular self. Says last night he urinated in bed feeling heavily sedated from mirtazapine. Discussed treatment for insomnia and options and that patient should empty his bladder prior to bedtime. Patient said he would like to try to see if he can sleep without mirtazapine or trazodone Mental Status Exam Mental Status Exam Narrative: Pt is alert and oriented; behavior is cooperative, friendly and calm; patient is not in distress; dressed in casual attire, lip rings; adequate hygiene; mood is described as good and affect congruent; eye contact appropriate; Speech is normal rate, volume and prosody and not pressured; no psychomotor agitation/retardation present; thought process is organized and goal directed; Thought content is on tx; otherwise pertinent to relevant topics and without any delusional content, paranoid ideations or grandiosity; denies any SI/HI. Denies AVH and there is no evidence of perceptual disturbance. Patients insight and judgment are intact. Diagnostics Vital Signs (24Hr): Vital Signs - 24 hr 10/03/24 13:00 10/03/24 19:39 10/04/24 08:00 Temperature 97.5 F 98.4 F 98.2 F Pulse Rate 90 89 74 Respiratory Rate 14 16 Blood Pressure 121/70 154/65 H 118/65 Pulse Oximetry 100 99 97 Oxygen Delivery Method Room Air Room Air Room Air BMI result Body Mass Index 20.4 Labs 10/02/24 10:12 Labs: Laboratory Results - last 48 hr 10/02/24 10/02/24 10/02/24 10:12 11:37 16:47 Sodium 137 Potassium 5.0 D Chloride 101 Carbon Dioxide 29 Anion Gap 12 BUN 16 Creatinine 0.80 Estim Creat Clear Calc 106.2 Estimated GFR > 60 POC Glucose 337 H 154 H Random Glucose 349 H Estimat Average Glucose 171 Hemoglobin A1c % 7.6 H Calcium 10.0 D Total Bilirubin 0.3 AST 20 ALT 23 Alkaline Phosphatase 78 Total Protein 7.1 Albumin 4.2 Triglycerides 110 Cholesterol 212 H LDL Cholesterol, Calc 138 H HDL Cholesterol 52 TSH 3.72 10/02/24 10/03/24 10/03/24 20:13 07:50 11:15 Sodium Potassium Chloride Carbon Dioxide Anion Gap BUN Creatinine Estim Creat Clear Calc Estimated GFR POC Glucose 219 H 254 H 281 H Random Glucose Estimat Average Glucose Hemoglobin A1c % Calcium Total Bilirubin AST ALT Alkaline Phosphatase Total Protein Albumin Triglycerides Cholesterol LDL Cholesterol, Calc HDL Cholesterol TSH 10/03/24 10/03/24 10/03/24 15:32 16:39 19:56 Sodium Potassium Chloride Carbon Dioxide Anion Gap BUN Creatinine Estim Creat Clear Calc Estimated GFR POC Glucose 187 H 185 H 279 H Random Glucose Estimat Average Glucose Hemoglobin A1c % Calcium Total Bilirubin AST ALT Alkaline Phosphatase Total Protein Albumin Triglycerides Cholesterol LDL Cholesterol, Calc HDL Cholesterol TSH 10/04/24 07:46 Sodium Potassium Chloride Carbon Dioxide Anion Gap BUN Creatinine Estim Creat Clear Calc Estimated GFR POC Glucose 267 H Random Glucose Estimat Average Glucose Hemoglobin A1c % Calcium Total Bilirubin AST ALT Alkaline Phosphatase Total Protein Albumin Triglycerides Cholesterol LDL Cholesterol, Calc HDL Cholesterol TSH Medications Medications Current Medications Acetaminophen (Acetaminophen 325 Mg Tablet) 650 mg PO Q6H PRN PRN Reason: Headache/Pain, Scale 1-10 Al Hydroxide/Mg Hydroxide (Magnesium Hydrox/Alum Hydrox 30 Ml Oral.Susp) 30 ml PO Q6H PRN PRN Reason: Heartburn/Nausea Clonidine (Clonidine 0.1 Mg Patch.Tdwk) 0.1 mg TRANSDERMA Sa@0900 [facility]; Protocol Last Admin: 10/02/24 14:26 Dose: 0.1 mg Dextrose (Dextrose 50 % 25 Gm/50 Ml Syringe) 25 gm IVPUSH Q15M PRN; Protocol PRN Reason: per Hypoglycemia Standing Ord. Glucose (Glucose Gel 15 Gm Gel..Gram.) 15 gm PO Q15M PRN; Protocol PRN Reason: per Hypoglycemia Standing Ord. Hydroxyzine HCl (Hydroxyzine Hcl 25 Mg Tablet) 25 mg PO Q6H PRN PRN Reason: mild anxiety Last Admin: 10/02/24 22:23 Dose: 25 mg Insulin Glargine (Insulin Glargine,Hum.Rec.Anlog 100 Unit/Ml 10 Ml Vial) 8 unit SUBCUT DAILY [facility] Last Admin: 10/04/24 08:22 Dose: 8 unit Insulin Human Lispro (Insulin Lispro 100 Unit/Ml 3 Ml Vial) 0 unit SUBCUT QIDACHS [facility]; Protocol Last Admin: 10/04/24 08:21 Dose: 6 unit Magnesium Hydroxide (Milk Of Magnesia 30 Ml Oral.Susp) 30 ml PO DAILY PRN PRN Reason: Constipation Melatonin (Melatonin 3 Mg Tablet) 6 mg PO BEDTIME [facility] Last Admin: 10/03/24 21:53 Dose: 6 mg Mirtazapine (Mirtazapine 7.5 Mg Tablet) 7.5 mg PO BEDTIME [facility] Last Admin: 10/03/24 21:54 Dose: 7.5 mg Nicotine (Nicotine 21 Mg Patch.Td24) 21 mg TRANSDERMA DAILY PRN PRN Reason: smoking cessation Nicotine Polacrilex (Nicotine Polacrilex 2 Mg Gum) 4 mg BUCCAL Q2H PRN PRN Reason: Nicotine Cravings Olanzapine (Olanzapine 5 Mg Tablet) 5 mg PO TID PRN PRN Reason: agitation Sertraline HCl (Sertraline Hcl 50 Mg Tablet) 150 mg PO DAILY [facility] Last Admin: 10/04/24 08:20 Dose: 150 mg Allergies Allergies Allergy/AdvReac Type Severity Reaction Status Date / Time No Known Allergies (No Known Allergy Verified 09/29/24 17:43 Allergies*) Assessment & Plan Assessment & Plan (1) MDD (major depressive disorder), severe: Status: Acute Code(s): F32.2 - Major depressive disorder, single episode, severe without psychotic features (2) Suicide attempt: Status: Acute Code(s): T14.91XA - Suicide attempt, initial encounter (3) Cocaine use disorder: Status: Acute Code(s): F14.10 - Cocaine abuse, uncomplicated (4) Diabetes mellitus type 1, uncontrolled: Status: Acute Code(s): E10.65 - Type 1 diabetes mellitus with hyperglycemia (5) Cannabis use disorder: Status: Acute Code(s): F12.90 - Cannabis use, unspecified, uncomplicated Plan HPI: Pt is a 34 year old, Hebrew and Libyan speaking male with history of depression, type 1 diabetes who appears his stated age that is evaluated on the medical floor at [facility] [place] following an overdose of insulin. Pt appears to be a poor historian at this time and attempts to minimize the severity of his behavior leading him to the medical floor. Patient was intentional overdose of insulin. Pt reported that he does not have a good recollection of the events leading him to the medical floor however, indicated that he was having issues with his sensor that reads his blood sugar and indicated that he began self administering insulin. Upon arrival, his blood sugar was 30. Continued to minimize of his suicide attempt, denies it as an attempt rather than the sensor of his insulin pump was not working right. Has been increased depression and hopeless the past couple of years, being diabetic and dental issues due to drug use . He fees hopeless. Reports not taking his antidepressant in the past 3 days prior to coming to the hospital. 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 Has to move back to his parents. He also used crack and marijuana daily even though he reports he has been cutting down a lot on crack use due to the fact that it ruined his teeth. Formulation/clinical reasoning: Not taking his antidepressant for 3 days, overdose on insulin, giving him 14 units not knowing home much the insulin needed, given him self 14 units. Blood sugar was only 30 upon arrival in the ED. he was medically admitted to medical floor. History of 3 total suicide attempts-want overdose on heroin per old record, previously overdose on insulin. Minimize of his mental health, minimize suicide attempt, increasing stress from not able to work, low self esteem related to his teeth. Feeling depressed and hopeless. Not goal directed. Given the above information, patient would definitely benefit from restrictive environment for his safety, and medication management. Hospital course: 10/01/24: Currently has no safety concerns Continue with sertraline 100 mg daily for depression. He has not taking that for 3 days to be admitted. Reports he is supposed to take trazodone 100 mg at bedtime for insomnia. However reports diarrhea and he stopped taking that from home. Given melatonin 6 mg at bedtime scheduled for insomnia. P.r.n. trazodone for sleep if melatonin is not effective. Lantus 8 units daily in the morning. Patient have sliding-scale 4 times a day to monitor blood sugar and given insulin lispro accordingly. Review p.r.n. hydroxyzine and Zyprexa available for anxiety and severe agitation/anxiety Will monitor his blood sugar for hyper/ hypoglycemic. His own insulin pump was removed from the emergency room. 10/02 pt admits he messed with insulin pump/indicator to intentionally overdose onf insulin He says at that moment, i didn't really care...at that moment, yea i wanted to ... now however, he denies any no SI, says he feels regular, like normal... moments like this happen every few months...and always in afternoon. He has no warning. He feels medications otherwise are helpful. He agrees to increase Zoloft to 150mg to see if increase can prevent such moments; also agrees to try Clonidine patch to see if this too can mitigate such moments, as he often forgets to take medications in the morning. 10/03 Patient remains feeling better, mood is good, no SI at all. Tolerating medication increases. Patient says he has insomnia but trazodone causes loose stool; discussed risks/side effects of mirtazapine and patient agrees to try 10/04 still felt heavily sedated with mirtazapine; discussed whether to treat insomnia or not and patient would like to see if he is able to sleep without mirtazapine or trazodone Plan Patient on 15 minute checks for safety. CV. Start mirtazapine 7.5 mg q.h.s. Continue Zoloft to 150 mg for continued anxious/depressed episodes Continue Clonidine Patch (Catapres) to mitigate anxious/depressive movements; last 7 days Work with treatment team to do collateral and aftercare. Patient may be benefit to refer to a civil engineering specialist. We will do some basic labs work the next day per protocol. Patient educated on: diagnosis and medication risk/benefits Informed Consent: understands Reason for continued inpatient stay Substantial Risk for: stable for discharge Time Spent With Patient Time: Total time managing care of this patient today ____ minutes.
[2024-10-04 11:43] LABS: Glucose, Whole Blood 191 mg/dL (60-115)
[2024-10-04 17:09] LABS: Glucose, Whole Blood 301 mg/dL (60-115)
[2024-10-04 19:31] VITALS: BP 103/59; PULSE 97; TEMP 36.6; O2SAT 99
[2024-10-04 21:10] LABS: Glucose, Whole Blood 127 mg/dL (60-115)
--- NOTE | 2024-10-05 03:56 | PC.NURSE ---
Patient had 1 episode of urinary and fecal incontinence. After he showered, his clonidine patch fell off.
[2024-10-05 07:21] LABS: Glucose, Whole Blood 381 mg/dL (60-115)
--- NOTE | 2024-10-05 09:36 | P.PNPSI_ITS ---
Subjective Subjective Date of Service: 10/05/24 Reason For Visit: SI Interim History: met with patient; discussed with team pt refused all meds today and took off Clonidine patch; pt worried that entire regimen causing incontinence. Pt mostly accepted that incontinence only correlated with taking sleeping aide (trazodone/mirtazapine); accepted to make med changes, going back to Zoloft 100mg and instead adding Wellbutrin. discussed patients day structure and why he mostly stays at home by self, playing video games. He said he used to have friends, but they revealed their true colors and so now he just avoids them. He denies social anxiety or much anxiety overall. He says he has a goal to get his drivers license but seems to lack motivation. Machine Fixer/SW discussed how lack of motivation can be a part of depression and pt said he'd consider this; discussed need for day structure and patient liked idea of attending Partial day program (remains disinterested in any treatment for substance abuse). With med changes and give recent suicide attempt (pt acknowledged to radio news writer and SW, however to other staff continues to say it was accidental) team agreed pt's need to remain a few more days. This upset patient, who then refused to talk, refused to take any medications including changes and including Insulin (or POC's) and sat in hallway with cloths item covering his head. Mental Status Exam Mental Status Exam Narrative: Pt is alert and oriented; behavior is not cooperative, disgruntled, refusing to engage; patient is not in distress; dressed in casual attire, lip rings, clothing draped over head; adequate hygiene; mood is described as irritated and affect congruent; eye contact avoidant; Speech is normal rate, volume and prosody and not pressured; no psychomotor agitation/retardation present; thought process is organized and goal directed; Thought content is on discharge; otherwise pertinent to relevant topics and without any delusional content, paranoid ideations or grandiosity; denies any SI/HI. Denies AVH and there is no evidence of perceptual disturbance. Patients insight and judgment impaired Diagnostics Vital Signs (24Hr): Vital Signs - 24 hr 10/04/24 19:31 Temperature 97.9 F Pulse Rate 97 Blood Pressure 103/59 L Pulse Oximetry 99 Oxygen Delivery Method Room Air BMI result Body Mass Index 20.4 Labs 10/06/24 02:22 Labs: Laboratory Results - last 48 hr 10/03/24 10/03/24 10/03/24 11:15 15:32 16:39 POC Glucose 281 H 187 H 185 H 10/03/24 10/04/24 10/04/24 19:56 07:46 11:40 POC Glucose 279 H 267 H 191 H 10/04/24 10/04/24 10/05/24 17:03 21:07 07:18 POC Glucose 301 H 127 H 381 H* Medications Medications Current Medications Acetaminophen (Acetaminophen 325 Mg Tablet) 650 mg PO Q6H PRN PRN Reason: Headache/Pain, Scale 1-10 Al Hydroxide/Mg Hydroxide (Magnesium Hydrox/Alum Hydrox 30 Ml Oral.Susp) 30 ml PO Q6H PRN PRN Reason: Heartburn/Nausea Clonidine (Clonidine 0.1 Mg Patch.Tdwk) 0.1 mg TRANSDERMA Sa@0900 [facility]; Protocol Last Admin: 10/02/24 14:26 Dose: 0.1 mg Dextrose (Dextrose 50 % 25 Gm/50 Ml Syringe) 25 gm IVPUSH Q15M PRN; Protocol PRN Reason: per Hypoglycemia Standing Ord. Glucose (Glucose Gel 15 Gm Gel..Gram.) 15 gm PO Q15M PRN; Protocol PRN Reason: per Hypoglycemia Standing Ord. Hydroxyzine HCl (Hydroxyzine Hcl 25 Mg Tablet) 25 mg PO Q6H PRN PRN Reason: mild anxiety Last Admin: 10/02/24 22:23 Dose: 25 mg Insulin Glargine (Insulin Glargine,Hum.Rec.Anlog 100 Unit/Ml 10 Ml Vial) 8 unit SUBCUT DAILY [facility] Last Admin: 10/05/24 08:42 Dose: Not Given Insulin Human Lispro (Insulin Lispro 100 Unit/Ml 3 Ml Vial) 0 unit SUBCUT QIDACHS [facility]; Protocol Last Admin: 10/05/24 08:34 Dose: 10 unit Magnesium Hydroxide (Milk Of Magnesia 30 Ml Oral.Susp) 30 ml PO DAILY PRN PRN Reason: Constipation Melatonin (Melatonin 3 Mg Tablet) 6 mg PO BEDTIME [facility] Last Admin: 10/04/24 21:59 Dose: 6 mg Mirtazapine (Mirtazapine 7.5 Mg Tablet) 7.5 mg PO BEDTIME [facility] Last Admin: 10/04/24 21:59 Dose: 7.5 mg Nicotine (Nicotine 21 Mg Patch.Td24) 21 mg TRANSDERMA DAILY PRN PRN Reason: smoking cessation Nicotine Polacrilex (Nicotine Polacrilex 2 Mg Gum) 4 mg BUCCAL Q2H PRN PRN Reason: Nicotine Cravings Olanzapine (Olanzapine 5 Mg Tablet) 5 mg PO TID PRN PRN Reason: agitation Sertraline HCl (Sertraline Hcl 50 Mg Tablet) 150 mg PO DAILY [facility] Last Admin: 10/05/24 08:42 Dose: Not Given Allergies Allergies Allergy/AdvReac Type Severity Reaction Status Date / Time No Known Allergies (No Known Allergy Verified 09/29/24 17:43 Allergies*) Assessment & Plan Assessment & Plan (1) MDD (major depressive disorder), severe: Status: Acute Code(s): F32.2 - Major depressive disorder, single episode, severe without psychotic features (2) Suicide attempt: Status: Acute Code(s): T14.91XA - Suicide attempt, initial encounter (3) Cocaine use disorder: Status: Acute Code(s): F14.10 - Cocaine abuse, uncomplicated (4) Diabetes mellitus type 1, uncontrolled: Status: Acute Code(s): E10.65 - Type 1 diabetes mellitus with hyperglycemia (5) Cannabis use disorder: Status: Acute Code(s): F12.90 - Cannabis use, unspecified, uncomplicated Plan HPI: Pt is a 34 year old, Kyrgyz and Sami speaking male with history of depression, type 1 diabetes who appears his stated age that is evaluated on the medical floor at [facility] [place] following an overdose of insulin. Pt appears to be a poor historian at this time and attempts to minimize the severity of his behavior leading him to the medical floor. Patient was intentional overdose of insulin. Pt reported that he does not have a good recollection of the events leading him to the medical floor however, indicated that he was having issues with his sensor that reads his blood sugar and indicated that he began self administering insulin. Upon arrival, his blood sugar was 30. Continued to minimize of his suicide attempt, denies it as an attempt rather than the sensor of his insulin pump was not working right. Has been increased depression and hopeless the past couple of years, being diabetic and dental issues due to drug use . He fees hopeless. Reports not taking his antidepressant in the past 3 days prior to coming to the hospital. 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 Has to move back to his parents. He also used crack and marijuana daily even though he reports he has been cutting down a lot on crack use due to the fact that it ruined his teeth. Formulation/clinical reasoning: Not taking his antidepressant for 3 days, overdose on insulin, giving him 14 units not knowing home much the insulin needed, given him self 14 units. Blood sugar was only 30 upon arrival in the ED. he was medically admitted to medical floor. History of 3 total suicide attempts-want overdose on heroin per old record, previously overdose on insulin. Minimize of his mental health, minimize suicide attempt, increasing stress from not able to work, low self esteem related to his teeth. Feeling depressed and hopeless. Not goal directed. Given the above information, patient would definitely benefit from restrictive environment for his safety, and medication management. Hospital course: 10/01/24: Currently has no safety concerns Continue with sertraline 100 mg daily for depression. He has not taking that for 3 days to be admitted. Reports he is supposed to take trazodone 100 mg at bedtime for insomnia. However reports diarrhea and he stopped taking that from home. Given melatonin 6 mg at bedtime scheduled for insomnia. P.r.n. trazodone for sleep if melatonin is not effective. Lantus 8 units daily in the morning. Patient have sliding-scale 4 times a day to monitor blood sugar and given insulin lispro accordingly. Review p.r.n. hydroxyzine and Zyprexa available for anxiety and severe agitation/anxiety Will monitor his blood sugar for hyper/ hypoglycemic. His own insulin pump was removed from the emergency room. 10/02 pt admits he messed with insulin pump/indicator to intentionally overdose onf insulin He says at that moment, i didn't really care...at that moment, yea i wanted to ... now however, he denies any no SI, says he feels regular, like normal... moments like this happen every few months...and always in afternoon. He has no warning. He feels medications otherwise are helpful. He agrees to increase Zoloft to 150mg to see if increase can prevent such moments; also agrees to try Clonidine patch to see if this too can mitigate such moments, as he often forgets to take medications in the morning. 7/13 Patient remains feeling better, mood is good, no SI at all. Tolerating medication increases. Patient says he has insomnia but trazodone causes loose stool; discussed risks/side effects of mirtazapine and patient agrees to try 10/04 still felt heavily sedated with mirtazapine; discussed whether to treat insomnia or not and patient would like to see if he is able to sleep without mirtazapine or trazodone 10/05 pt refused meds this morning Pt worried entire med regimen is causing him incontinence. With education Pt seemed to accept that his incontinence only correlates with him taking sleeping aid (had been discussed previously as well). However he remained worried about it and felt better with Zoloft going back down to 100mg. To help with depression, he agreed to add Wellbutrin (lower zoloft back to 100mg and start wellbutrin xl 150mg). Pt was admitted following a suicide attempt by insulin overdose. Since patient initially refused medications and now with new med changes, radio news writer explained the need to remain on unit a couple days more...to make sure of continued stability; also need to set up more aftercare support (pt agrees to Partial day program). Pt became upset about this saying he still wanted discharge tomorrow, though could offer no urgent reason for it; radio news writer again explained situation but pt got up, walked out of room and refused to talk anymore. He draped some cloths over his head and face and sat in the hallway, refusing all meds, including insulin and POC's. He later told nurse that he would only consent to restarting his insulin if he was discharged on day of his choosing. Impression: -significant regression revealing limited coping skills and providing glimpse into why patient decompensates in the community. Plan Patient on 15 minute checks for safety. CV. DC mirtazapine causes oversedation resulting in incontinence LOWER back to Zoloft to 100 mg; pt uncomfortable with this med change since familiar with 100mg tabs START Wellbutrin XL 150mg daily for depression Continue Clonidine Patch (Catapres) to mitigate anxious/depressive movements; last 7 days Work with treatment team to do collateral and aftercare. Refuses and substance abuse treatment Patient educated on: diagnosis, medication risk/benefits and therapeutic strategies Informed Consent: understands Reason for continued inpatient stay Substantial Risk for: rapid decompensation Time Spent With Patient Time: Total time managing care of this patient today ____ minutes.
--- NOTE | 2024-10-05 20:39 | PC.NURSE ---
Patient spoke to this parts data writer and is frustrated that he is being held against his will. Jokhai states that he plans on going on a hunger strike, will not take his medications, and will not allow staff to obtain blood sugar levels, until he gets the answers he wants. He will not elaborate as to what answers he is wanting to hear. He has a long sleeved shirt wrapped around his head, with the neck opening allowing him to see. This parts data writer offered supportive communication, and encouraged this patient to make healthier, more positive choices, but the patient was not receptive. He continues to insist that he will resist care until he gets the answers he wants.
--- NOTE | 2024-10-05 21:22 | PC.NURSE ---
Patient has refused scheduled medication. He has also refused twice to allow staff to obtain a blood glucose level.
[2024-10-05 21:37] LABS: Glucose, Whole Blood > 600 mg/dL (60-115)
--- NOTE | 2024-10-05 21:58 | PC.NURSE ---
At approximately 2130, this patient allowed staff to obtain a point of car blood glucose which was >500. Provider Bailey Fleming was notified as the patient is refusing medications, including insulin. Patient was educated regarding uncontrolled diabetes but remains resistant to care as of this writing.
--- NOTE | 2024-10-05 22:28 | PC.NURSE ---
Provider Bailey Fleming came and spoke at length with the patient. Immediately following that conversation, the patient accepted 10 units of insulin. He has also been placed on 5 minute checks.
[2024-10-06 01:21] LABS: Glucose, Whole Blood > 600 mg/dL (60-115)
[2024-10-06 02:53] LABS: Anion Gap 15 (12-20); Blood Urea Nitrogen 18 mg/dL (9-16); Calcium 10.1 mg/dL (8.4-10.2); Carbon Dioxide 30 mmol/L (22-29); Chloride 93 mmol/L (96-108); Creatinine Clr Calc Pharmacy 84.1; Estimated Glomerular Filt Rate > 60; Potassium 4.5 mmol/L (3.3-5.1); Sodium 133 mmol/L (135-145)
[2024-10-06] MEDS: Insulin Glargine,Hum.rec.anlog 100 UNIT/ML 10 ML VIAL 16 UNIT SUBCUT (03:52)
--- NOTE | 2024-10-06 04:49 | PM.EVENT ---
Event Note Date of Service: 10/06/24 Event Note: Nurse reported POC over 600. Uncooperative regarding his diabetes . Reviewed BMP. No evidence of DKA. Increased his basal insulin and ordered additional short-acting insulin. Closely monitor sugars. Time Spent With Patient Time: Total time managing care of this patient today ____ minutes.
--- NOTE | 2024-10-06 07:41 | PC.NURSE ---
Patient was sitting in the hallway shortly after 0110 and stated I need my blood sugar checked again . He had refused to allow any lab draw when his POC was >600 earlier. POC done via glucometer and result was >600 at 0115. Sylvie Davila NP trigonometry tutor provider notified at 0125 via [facility] [employer]. Requested order for hospitalist consult and STAT BMP. Orders received, Dr. Boss, hospitalist informed. BMP was drawn and result blood glucose [address] Boss via [facility] [employer]. Orders received from Dr. Boss for Lantus 16 units and Lispro 20 units given to patient; no snack was given due to high blood sugar. Dr. Boss okay with recheck of POC glucose to be done at 0800.
[2024-10-06 07:53] LABS: Glucose, Whole Blood 26 mg/dL (60-115)
[2024-10-06 08:42] LABS: Glucose, Whole Blood 54 mg/dL (60-115)
--- NOTE | 2024-10-06 09:00 | P.PNIM_ITS ---
Subjective Subjective Date of Service: 10/06/24 Interval History: Patient is seen in follow up for hyperglycemia. Patient's blood sugar was noted to be greater than 600 at 930 last evening, it was rechecked at 01:15 in the morning it was 600 and then again rechecked at 220 and it was 659. Patient received 3 doses of lispro insulin for a total of 40 units of lispro, 20:34 he received 10 units, 1022 a received 10 units, and 03:51 he received 20 units of lispro. This morning at 07:49 his blood sugar was 26, he was awake and alert. It was rechecked at 830, noted to be 54. Patient received insulin glargine 16 units at 03:52 a.m. as well. On exam patient reports he is not hungry and did not eat his breakfast. He otherwise feels well no complaints. Quiet and cooperative with exam. He denies any shortness of breath, chest pain, dizziness lightheadedness or any other concerning symptoms. Denies any visual changes denies any dysuria, denies any cough. Review of Systems Denies any shortness of breath, chest pain, dizziness, lightheadedness, abdominal pain or discomfort, nausea vomiting or diarrhea Physical Exam 2 Vital Signs: Vital Signs: Last Vital Signs Temp 97.9 F 10/04/24 19:31 Pulse 97 10/04/24 19:31 Resp 16 10/04/24 08:00 BP 103/59 L 10/04/24 19:31 Pulse Ox 99 10/04/24 19:31 O2 Del Method Room Air 10/04/24 19:31 BMI result Body Mass Index 20.4 CONST: Alert and oriented, in NAD. Well nourished, thin HEENT: Normocephalic, atraumatic, MMM RESP: Lungs clear, RRR even and regular HEART:,RRR, S1, S2. No murmur, no edema GI:Abdomen Soft NT, ND. + BS times four :Deferred SKIN: Warm dry and intact, no visible lesions or rashes NEURO:CN II-XII Intact bilaterally, Sensation intact. Speech clear PSYCH: Normal affect Objective Data Active Medications Acetaminophen (Acetaminophen 325 Mg Tablet) 650 mg PO Q6H PRN PRN Reason: Headache/Pain, Scale 1-10 Al Hydroxide/Mg Hydroxide (Magnesium Hydrox/Alum Hydrox 30 Ml Oral.Susp) 30 ml PO Q6H PRN PRN Reason: Heartburn/Nausea Bupropion HCl (Bupropion Hcl Xl 150 Mg Tab.Er.24h) 150 mg PO DAILY [facility] Clonidine (Clonidine 0.1 Mg Patch.Tdwk) 0.1 mg TRANSDERMA Sa@0900 [facility]; Protocol Last Admin: 10/05/24 12:00 Dose: Not Given Documented By: PENNY Non-Admin Reason: Patient Refused Dextrose (Dextrose 50 % 25 Gm/50 Ml Syringe) 25 gm IVPUSH Q15M PRN; Protocol PRN Reason: per Hypoglycemia Standing Ord. Glucose (Glucose Gel 15 Gm Gel..Gram.) 15 gm PO Q15M PRN; Protocol PRN Reason: per Hypoglycemia Standing Ord. Hydroxyzine HCl (Hydroxyzine Hcl 25 Mg Tablet) 25 mg PO Q6H PRN PRN Reason: mild anxiety Last Admin: 10/02/24 22:23 Dose: 25 mg Documented By: FANNY Insulin Glargine (Insulin Glargine,Hum.Rec.Anlog 100 Unit/Ml 10 Ml Vial) 16 unit SUBCUT DAILY [facility] Last Admin: 10/06/24 03:52 Dose: 16 unit Documented By: KENYATTA Insulin Human Lispro (Insulin Lispro 100 Unit/Ml 3 Ml Vial) 0 unit SUBCUT QIDACHS [facility]; Protocol Last Admin: 10/05/24 22:22 Dose: 10 unit Documented By: FREDO Magnesium Hydroxide (Milk Of Magnesia 30 Ml Oral.Susp) 30 ml PO DAILY PRN PRN Reason: Constipation Melatonin (Melatonin 3 Mg Tablet) 6 mg PO BEDTIME [facility] Last Admin: 10/05/24 22:10 Dose: Not Given Documented By: FREDO Non-Admin Reason: Patient Refused Nicotine (Nicotine 21 Mg Patch.Td24) 21 mg TRANSDERMA DAILY PRN PRN Reason: smoking cessation Nicotine Polacrilex (Nicotine Polacrilex 2 Mg Gum) 4 mg BUCCAL Q2H PRN PRN Reason: Nicotine Cravings Sertraline HCl (Sertraline Hcl 100 Mg Tablet) 100 mg PO DAILY [facility] Last Admin: 10/05/24 12:00 Dose: Not Given Documented By: PENNY Non-Admin Reason: Patient Refused Labs 10/06/24 02:22 Labs: Laboratory Results - last 24 hr 10/05/24 10/06/24 10/06/24 21:32 01:15 02:22 Anion Gap 15 Estim Creat Clear Calc 84.1 Estimated GFR > 60 POC Glucose > 600 H* > 600 H* Random Glucose 659 H* Calcium 10.1 10/06/24 10/06/24 07:49 08:30 Anion Gap Estim Creat Clear Calc Estimated GFR POC Glucose 26 L* 54 L* Random Glucose Calcium Assessment and Plan (1) Acute metabolic encephalopathy: Status: Acute Plan Patient is a 34-year-old male with a PMH significant for poorly controlled type 1 diabetes mellitus, HLD, polysubstance use disorder, MDD with SI, and medication noncompliance who is admitted to [facility] psych unit for increased depression with SI with attempted overdose on insulin. Type 1 diabetes since age 10. Patient with elevated blood glucose overnight between 600 and 700 He received a total of 40 units of lispro in 3 divided doses as well as 16 units of glargine This morning his blood sugar was 26, subsequently in the 50s, declining to eat any breakfast. Mother to bring in home Tresiba inpatient we will resume his usual home medication He normally uses the Cequr insulin patch which delivers 2 units of Humalog with every click. Patient was previously checking his blood sugars on his phone and administering between 1 and 7 clicks based on his blood sugar. Patch was removed on admission, and we are currently using lispro sliding scale for elevated blood sugars. Continue Diabetic diet Patient is followed by endocrinology, last seen 09/29/2024. Per endocrinology patient should continue on his basal insulin Tresiba at 24 units. Mother to bring in from home. Mood disorder with SI with recent insulin overdose attempt Treatment per psychiatry team Thank you for allowing me to participate in the care of this patient. Will continue to follow. Please reconsult of any acute concerns or issues arise. Quality Stroke Does the patient have a stroke diagnosis?: No VTE Prior VTE?: No VTE Risk Level:: Medical - low VTE Device Contraindication: Treatment Not Indicated VTE Drug Contraindication: Treatment Not Indicated
[2024-10-06 09:37] LABS: Glucose, Whole Blood 58 mg/dL (60-115)
[2024-10-06 10:00] VITALS: BP 118/63; PULSE 74; TEMP 36.8; O2SAT 97
--- NOTE | 2024-10-06 10:55 | PC.NURSE ---
blood sugar taken this am ~7:15 and found to be 26. hospitalist production maintenance mechanic Dr. Stokes was made aware and pt was given orange juice, apple juice and chocolate milk. pt only accepted the orange juice. Pt at the time was standing and talking, denying feeling any physical symptoms of hypoglycemia. In the meantime JOHN Coleman was also made aware. blood sugar was rechecked ~30 min later and found to be 54. At that time pt was laying in bed and refusing to eat or drink anything, as well as, refused glucose gel. Blood sugar was then retaken ~30 min later and found to be 58. JOHN Coleman spoke with pt in his room and discussed how he manages his T1DM at home. Will keep monitoring pt.
[2024-10-06 12:17] LABS: Glucose, Whole Blood 54 mg/dL (60-115)
--- NOTE | 2024-10-06 13:09 | P.PNPSI_ITS ---
Subjective Subjective Date of Service: 10/06/24 Reason For Visit: SI Subjective Notes: Conditional Voluntary Healthcare Proxy: No Guardianship: No Medical Problems Affecting Mental Status: No Interim History: Medical record and nursing notes reviewed; case discussed during rounds with team/nursing staff, and met with patient for supportive therapy/psychoeducation, as well as medication management. Patient slept for about 6 hours last night. Did not compliant with meds but complant with POC after a long talk from assgined nurse and this provider last night. Patient received total of 40 units of Lispro and 16 unit of Glargine last night. As the result, BS was 26 this morning, recheck a couple times prior lunch in a low end 54-56. Patient did not want to eat breakfast as normal his pattern even though BS was low. Discuss with him of consistent with medications to show the team that he has capacity to take care of him in community after discharge and refused meds or insulin coverage when things go wrong or not his way are not a great smart choice. Patient was not irritable compared to last night. He is more receptive to the plan. Denies S&S of hyper-hypoglycemia. No sweating. Denies SI/SIB/HI/AVH. He is in better mood and calm. Appear to be depressed, reviewed med list and he is receptive. Medication Compliance: No (He refused medication last night) Side effects from medications: No Attending Groups: Intermittent Review of Systems Acute medical concerns: Yes Hyperglyciamic Review of Systems Review of Systems Constitutional: Denies fatigue and Denies fever(s) Cardiovascular: Denies chest pain and Denies dyspnea Respiratory: Denies dyspnea Gastrointestinal: Denies abdominal pain Psychiatric: denies suicidal ideation Endocrine: Denies fatigue Hyperglycemic today. Seen by Hospitalist. Mental Status Exam Mental Status Exam Narrative: Pt is alert and oriented; behavior is calm and mostly cooperative, patient is not in distress; dressed in casual attire, lip rings, no clothing draped over head; adequate hygiene; mood is described as good and I am fine . and affect congruent; eye contact appropriate; Speech is normal rate, volume and prosody and not pressured; no psychomotor agitation/retardation present; thought process is organized and goal directed; Thought content is more on treatment; otherwise pertinent to relevant topics and without any delusional content, paranoid ideations or grandiosity; denies any SI/HI. Denies AVH and there is no evidence of perceptual disturbance. Patients insight and judgment impaired Diagnostics Vital Signs (24Hr): BMI result Body Mass Index 20.4 Labs 10/06/24 02:22 Labs: Laboratory Results - last 48 hr 10/04/24 10/04/24 10/05/24 17:03 21:07 07:18 Sodium Potassium Chloride Carbon Dioxide Anion Gap BUN Creatinine Estim Creat Clear Calc Estimated GFR POC Glucose 301 H 127 H 381 H* Random Glucose Calcium 10/05/24 10/06/24 10/06/24 21:32 01:15 02:22 Sodium 133 L Potassium 4.5 Chloride 93 L Carbon Dioxide 30 H Anion Gap 15 BUN 18 H Creatinine 1.01 Estim Creat Clear Calc 84.1 Estimated GFR > 60 POC Glucose > 600 H* > 600 H* Random Glucose 659 H* Calcium 10.1 10/06/24 10/06/24 10/06/24 07:49 08:30 09:33 Sodium Potassium Chloride Carbon Dioxide Anion Gap BUN Creatinine Estim Creat Clear Calc Estimated GFR POC Glucose 26 L* 54 L* 58 L* Random Glucose Calcium 10/06/24 11:55 Sodium Potassium Chloride Carbon Dioxide Anion Gap BUN Creatinine Estim Creat Clear Calc Estimated GFR POC Glucose 54 L* Random Glucose Calcium Medications Medications Current Medications Acetaminophen (Acetaminophen 325 Mg Tablet) 650 mg PO Q6H PRN PRN Reason: Headache/Pain, Scale 1-10 Al Hydroxide/Mg Hydroxide (Magnesium Hydrox/Alum Hydrox 30 Ml Oral.Susp) 30 ml PO Q6H PRN PRN Reason: Heartburn/Nausea Bupropion HCl (Bupropion Hcl Xl 150 Mg Tab.Er.24h) 150 mg PO DAILY [facility] Last Admin: 10/06/24 09:36 Dose: Not Given Clonidine (Clonidine 0.1 Mg Patch.Tdwk) 0.1 mg TRANSDERMA Sa@0900 [facility]; Protocol Last Admin: 10/05/24 12:00 Dose: Not Given Dextrose (Dextrose 50 % 25 Gm/50 Ml Syringe) 25 gm IVPUSH Q15M PRN; Protocol PRN Reason: per Hypoglycemia Standing Ord. Glucose (Glucose Gel 15 Gm Gel..Gram.) 15 gm PO Q15M PRN; Protocol PRN Reason: per Hypoglycemia Standing Ord. Hydroxyzine HCl (Hydroxyzine Hcl 25 Mg Tablet) 25 mg PO Q6H PRN PRN Reason: mild anxiety Last Admin: 10/02/24 22:23 Dose: 25 mg Insulin Human Lispro (Insulin Lispro 100 Unit/Ml 3 Ml Vial) 0 unit SUBCUT QIDACHS [facility]; Protocol Last Admin: 10/06/24 12:28 Dose: Not Given Magnesium Hydroxide (Milk Of Magnesia 30 Ml Oral.Susp) 30 ml PO DAILY PRN PRN Reason: Constipation Melatonin (Melatonin 3 Mg Tablet) 6 mg PO BEDTIME [facility] Last Admin: 10/05/24 22:10 Dose: Not Given Nicotine (Nicotine 21 Mg Patch.Td24) 21 mg TRANSDERMA DAILY PRN PRN Reason: smoking cessation Nicotine Polacrilex (Nicotine Polacrilex 2 Mg Gum) 4 mg BUCCAL Q2H PRN PRN Reason: Nicotine Cravings Non-Formulary Medication (Treshiba) 24 units SUBCUT BEDTIME [facility] Sertraline HCl (Sertraline Hcl 100 Mg Tablet) 100 mg PO DAILY [facility] Last Admin: 10/06/24 09:36 Dose: Not Given Allergies Allergies Allergy/AdvReac Type Severity Reaction Status Date / Time No Known Allergies (No Known Allergy Verified 09/29/24 17:43 Allergies*) Assessment & Plan Assessment & Plan (1) Acute metabolic encephalopathy: Status: Acute Code(s): G93.41 - Metabolic encephalopathy (2) MDD (major depressive disorder), severe: Status: Acute Code(s): F32.2 - Major depressive disorder, single episode, severe without psychotic features (3) Suicide attempt: Status: Acute Code(s): T14.91XA - Suicide attempt, initial encounter (4) Cocaine use disorder: Status: Acute Code(s): F14.10 - Cocaine abuse, uncomplicated (5) Diabetes mellitus type 1, uncontrolled: Status: Acute Code(s): E10.65 - Type 1 diabetes mellitus with hyperglycemia (6) Cannabis use disorder: Status: Acute Code(s): F12.90 - Cannabis use, unspecified, uncomplicated Plan HPI: Pt is a 34 year old, Malay and Citizen [place] speaking male with history of depression, type 1 diabetes who appears his stated age that is evaluated on the medical floor at [facility] following an overdose of insulin. Pt appears to be a poor historian at this time and attempts to minimize the severity of his behavior leading him to the medical floor. Patient was intentional overdose of insulin. Pt reported that he does not have a good recollection of the events leading him to the medical floor however, indicated that he was having issues with his sensor that reads his blood sugar and indicated that he began self administering insulin. Upon arrival, his blood sugar was 30. Continued to minimize of his suicide attempt, denies it as an attempt rather than the sensor of his insulin pump was not working right. Has been increased depression and hopeless the past couple of years, being diabetic and dental issues due to drug use . He fees hopeless. Reports not taking his antidepressant in the past 3 days prior to coming to the hospital. 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 Has to move back to his parents. He also used crack and marijuana daily even though he reports he has been cutting down a lot on crack use due to the fact that it ruined his teeth. Formulation/clinical reasoning: Not taking his antidepressant for 3 days, overdose on insulin, giving him 14 units not knowing home much the insulin needed, given him self 14 units. Blood sugar was only 30 upon arrival in the ED. he was medically admitted to medical floor. History of 3 total suicide attempts-want overdose on heroin per old record, previously overdose on insulin. Minimize of his mental health, minimize suicide attempt, increasing stress from not able to work, low self esteem related to his teeth. Feeling depressed and hopeless. Not goal directed. Given the above information, patient would definitely benefit from restrictive environment for his safety, and medication management. Hospital course: 10/01/24: Currently has no safety concerns Continue with sertraline 100 mg daily for depression. He has not taking that for 3 days to be admitted. Reports he is supposed to take trazodone 100 mg at bedtime for insomnia. However reports diarrhea and he stopped taking that from home. Given melatonin 6 mg at bedtime scheduled for insomnia. P.r.n. trazodone for sleep if melatonin is not effective. Lantus 8 units daily in the morning. Patient have sliding-scale 4 times a day to monitor blood sugar and given insulin lispro accordingly. Review p.r.n. hydroxyzine and Zyprexa available for anxiety and severe agitation/anxiety Will monitor his blood sugar for hyper/ hypoglycemic. His own insulin pump was removed from the emergency room. 10/02 pt admits he messed with insulin pump/indicator to intentionally overdose onf insulin He says at that moment, i didn't really care...at that moment, yea i wanted to ... now however, he denies any no SI, says he feels regular, like normal... moments like this happen every few months...and always in afternoon. He has no warning. He feels medications otherwise are helpful. He agrees to increase Zoloft to 150mg to see if increase can prevent such moments; also agrees to try Clonidine patch to see if this too can mitigate such moments, as he often forgets to take medications in the morning. 10/03 Patient remains feeling better, mood is good, no SI at all. Tolerating medication increases. Patient says he has insomnia but trazodone causes loose stool; discussed risks/side effects of mirtazapine and patient agrees to try 10/04 still felt heavily sedated with mirtazapine; discussed whether to treat insomnia or not and patient would like to see if he is able to sleep without mirtazapine or trazodone 10/05 pt refused meds this morning Pt worried entire med regimen is causing him incontinence. With education Pt seemed to accept that his incontinence only correlates with him taking sleeping aid (had been discussed previously as well). However he remained worried about it and felt better with Zoloft going back down to 100mg. To help with depression, he agreed to add Wellbutrin (lower zoloft back to 100mg and start wellbutrin xl 150mg). Pt was admitted following a suicide attempt by insulin overdose. Since patient initially refused medications and now with new med changes, script writer explained the need to remain on unit a couple days more...to make sure of continued stability; also need to set up more aftercare support (pt agrees to Partial day program). Pt became upset about this saying he still wanted discharge tomorrow, though could offer no urgent reason for it; script writer again explained situation but pt got up, walked out of room and refused to talk anymore. He draped some cloths over his head and face and sat in the hallway, refusing all meds, including insulin and POC's. He later told nurse that he would only consent to restarting his insulin if he was discharged on day of his choosing. Impression: -significant regression revealing limited coping skills and providing glimpse into why patient decompensates in the community. 10/06/24: Patient was not happy not knowing when he has been discharged, reports that 3 day notice was missing that he signed 1 last week Friday. However staff confirmed that he is not ever signed a 3 day notice before. Therefore, he was irritable and refused treatment yesterday included blood sugar coverage. He agreed to take some insulin last night after talking to me. Hospitalist also give him more insulin both short and long-acting. As the result blood sugar this morning was 26, recheck a couple more times was 54-58. He is asymptomatic. Did not want to eat breakfast as usual his pattern, but ate lunch. He is seen by hospitalist he this morning. Hospitalist is also aware of sodium level at the 133. I review the medication list with him, he is receptive with plans of consistently taking medications. Poor coping skills when things not going his way. Denies depression and anxiety, denies anger issues, incongruent with mood and affect. No SI/SIB/HI/AVH. He refused medication last night but took it this morning. Plan Patient on 15 minute checks for safety. CV. DC mirtazapine causes oversedation resulting in incontinence LOWER back to Zoloft to 100 mg; pt uncomfortable with this med change since familiar with 100mg tabs START Wellbutrin XL 150mg daily for depression Continue Clonidine Patch (Catapres) to mitigate anxious/depressive movements; last 7 days. ?? still on? Work with treatment team to do collateral and aftercare. SW will do collateral with mom. Refuses and substance abuse treatment Patient educated on: medication risk/benefits and therapeutic strategies Informed Consent: understands and further education needed Reason for continued inpatient stay Substantial Risk for: med/psych decompensation Time Spent With Patient Time: Total time managing care of this patient today ____ minutes.
[2024-10-06] MEDS: buPROPion HCl XL 150 MG TAB.ER.24H PO (14:09)
[2024-10-06 17:09] LABS: Glucose, Whole Blood 519 mg/dL (60-115)
[2024-10-06 18:20] LABS: Glucose, Whole Blood 561 mg/dL (60-115)
[2024-10-06 22:00] VITALS: BP 119/71; PULSE 96; RESP 16; TEMP 36.5; O2SAT 99
[2024-10-06 22:08] LABS: Glucose, Whole Blood 124 mg/dL (60-115)
[2024-10-06] MEDS: [UNRECOGNIZED DRUG - OTHER] 24 EACH SUBCUT (22:49)
[2024-10-07 08:16] LABS: Glucose, Whole Blood 125 mg/dL (60-115)
[2024-10-07] MEDS: buPROPion HCl XL 150 MG TAB.ER.24H PO (09:14)
--- NOTE | 2024-10-07 09:31 | HO.PSYCHPN ---
Subjective Subjective Date of Service: 10/07/24 Reason For Visit: SI Interim History: pt apologized about behavior the other day and volunteered that he was acting like a child Diagnostics Vital Signs (24Hr): Vital Signs - 24 hr 10/06/24 10:00 10/06/24 22:00 Temperature 98.2 F 97.7 F Pulse Rate 74 96 Respiratory Rate 16 Blood Pressure 118/63 119/71 Pulse Oximetry 97 99 Oxygen Delivery Method Room Air Room Air BMI result Body Mass Index 20.4 Labs 10/06/24 02:22 Labs: Laboratory Results - last 48 hr 10/05/24 10/06/24 10/06/24 21:32 01:15 02:22 Sodium 133 L Potassium 4.5 Chloride 93 L Carbon Dioxide 30 H Anion Gap 15 BUN 18 H Creatinine 1.01 Estim Creat Clear Calc 84.1 Estimated GFR > 60 POC Glucose > 600 H* > 600 H* Random Glucose 659 H* Calcium 10.1 10/06/24 10/06/24 10/06/24 07:49 08:30 09:33 Sodium Potassium Chloride Carbon Dioxide Anion Gap BUN Creatinine Estim Creat Clear Calc Estimated GFR POC Glucose 26 L* 54 L* 58 L* Random Glucose Calcium 10/06/24 10/06/24 10/06/24 11:55 17:03 18:15 Sodium Potassium Chloride Carbon Dioxide Anion Gap BUN Creatinine Estim Creat Clear Calc Estimated GFR POC Glucose 54 L* 519 H* 561 H* Random Glucose Calcium 10/06/24 10/07/24 22:03 08:08 Sodium Potassium Chloride Carbon Dioxide Anion Gap BUN Creatinine Estim Creat Clear Calc Estimated GFR POC Glucose 124 H 125 H Random Glucose Calcium Medications Medications Current Medications Acetaminophen (Acetaminophen 325 Mg Tablet) 650 mg PO Q6H PRN PRN Reason: Headache/Pain, Scale 1-10 Al Hydroxide/Mg Hydroxide (Magnesium Hydrox/Alum Hydrox 30 Ml Oral.Susp) 30 ml PO Q6H PRN PRN Reason: Heartburn/Nausea Bupropion HCl (Bupropion Hcl Xl 150 Mg Tab.Er.24h) 150 mg PO DAILY [facility] Last Admin: 10/07/24 09:14 Dose: 150 mg Clonidine (Clonidine 0.1 Mg Patch.Tdwk) 0.1 mg TRANSDERMA Sa@0900 [facility]; Protocol Last Admin: 10/05/24 12:00 Dose: Not Given Dextrose (Dextrose 50 % 25 Gm/50 Ml Syringe) 25 gm IVPUSH Q15M PRN; Protocol PRN Reason: per Hypoglycemia Standing Ord. Glucose (Glucose Gel 15 Gm Gel..Gram.) 15 gm PO Q15M PRN; Protocol PRN Reason: per Hypoglycemia Standing Ord. Hydroxyzine HCl (Hydroxyzine Hcl 25 Mg Tablet) 25 mg PO Q6H PRN PRN Reason: mild anxiety Last Admin: 10/02/24 22:23 Dose: 25 mg Insulin Human Lispro (Insulin Lispro 100 Unit/Ml 3 Ml Vial) 0 unit SUBCUT QIDACHS [facility]; Protocol Last Admin: 10/07/24 09:14 Dose: Not Given Magnesium Hydroxide (Milk Of Magnesia 30 Ml Oral.Susp) 30 ml PO DAILY PRN PRN Reason: Constipation Melatonin (Melatonin 3 Mg Tablet) 6 mg PO BEDTIME [facility] Last Admin: 10/06/24 21:58 Dose: Not Given Nicotine (Nicotine 21 Mg Patch.Td24) 21 mg TRANSDERMA DAILY PRN PRN Reason: smoking cessation Nicotine Polacrilex (Nicotine Polacrilex 2 Mg Gum) 4 mg BUCCAL Q2H PRN PRN Reason: Nicotine Cravings Pt Owned Med ( [employer]reshiba 24 Units 200mg Units/Ml) 24 units SUBCUT BEDTIME [facility] Last Admin: 10/06/24 22:49 Dose: 24 units Sertraline HCl (Sertraline Hcl 100 Mg Tablet) 100 mg PO DAILY [facility] Last Admin: 10/07/24 09:14 Dose: 100 mg Allergies Allergies Allergy/AdvReac Type Severity Reaction Status Date / Time No Known Allergies (No Known Allergy Verified 09/29/24 17:43 Allergies*) Assessment & Plan Assessment & Plan (1) Acute metabolic encephalopathy: Status: Acute Code(s): G93.41 - Metabolic encephalopathy (2) MDD (major depressive disorder), severe: Status: Acute Code(s): F32.2 - Major depressive disorder, single episode, severe without psychotic features (3) Suicide attempt: Status: Acute Code(s): T14.91XA - Suicide attempt, initial encounter (4) Cocaine use disorder: Status: Acute Code(s): F14.10 - Cocaine abuse, uncomplicated (5) Diabetes mellitus type 1, uncontrolled: Status: Acute Code(s): E10.65 - Type 1 diabetes mellitus with hyperglycemia (6) Cannabis use disorder: Status: Acute Code(s): F12.90 - Cannabis use, unspecified, uncomplicated Plan HPI: Pt is a 34 year old, Indonesian and Greek speaking male with history of depression, type 1 diabetes who appears his stated age that is evaluated on the medical floor at [facility] following an overdose of insulin. Pt appears to be a poor historian at this time and attempts to minimize the severity of his behavior leading him to the medical floor. Patient was intentional overdose of insulin. Pt reported that he does not have a good recollection of the events leading him to the medical floor however, indicated that he was having issues with his sensor that reads his blood sugar and indicated that he began self administering insulin. Upon arrival, his blood sugar was 30. Continued to minimize of his suicide attempt, denies it as an attempt rather than the sensor of his insulin pump was not working right. Has been increased depression and hopeless the past couple of years, being diabetic and dental issues due to drug use . He fees hopeless. Reports not taking his antidepressant in the past 3 days prior to coming to the hospital. 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 Has to move back to his parents. He also used crack and marijuana daily even though he reports he has been cutting down a lot on crack use due to the fact that it ruined his teeth. Formulation/clinical reasoning: Not taking his antidepressant for 3 days, overdose on insulin, giving him 14 units not knowing home much the insulin needed, given him self 14 units. Blood sugar was only 30 upon arrival in the ED. he was medically admitted to medical floor. History of 3 total suicide attempts-want overdose on heroin per old record, previously overdose on insulin. Minimize of his mental health, minimize suicide attempt, increasing stress from not able to work, low self esteem related to his teeth. Feeling depressed and hopeless. Not goal directed. Given the above information, patient would definitely benefit from restrictive environment for his safety, and medication management. Hospital course: 10/01/24: Currently has no safety concerns Continue with sertraline 100 mg daily for depression. He has not taking that for 3 days to be admitted. Reports he is supposed to take trazodone 100 mg at bedtime for insomnia. However reports diarrhea and he stopped taking that from home. Given melatonin 6 mg at bedtime scheduled for insomnia. P.r.n. trazodone for sleep if melatonin is not effective. Lantus 8 units daily in the morning. Patient have sliding-scale 4 times a day to monitor blood sugar and given insulin lispro accordingly. Review p.r.n. hydroxyzine and Zyprexa available for anxiety and severe agitation/anxiety Will monitor his blood sugar for hyper/ hypoglycemic. His own insulin pump was removed from the emergency room. 10/02 pt admits he messed with insulin pump/indicator to intentionally overdose onf insulin He says at that moment, i didn't really care...at that moment, yea i wanted to ... now however, he denies any no SI, says he feels regular, like normal... moments like this happen every few months...and always in afternoon. He has no warning. He feels medications otherwise are helpful. He agrees to increase Zoloft to 150mg to see if increase can prevent such moments; also agrees to try Clonidine patch to see if this too can mitigate such moments, as he often forgets to take medications in the morning. 10/03 Patient remains feeling better, mood is good, no SI at all. Tolerating medication increases. Patient says he has insomnia but trazodone causes loose stool; discussed risks/side effects of mirtazapine and patient agrees to try 10/04 still felt heavily sedated with mirtazapine; discussed whether to treat insomnia or not and patient would like to see if he is able to sleep without mirtazapine or trazodone 10/05 pt refused meds this morning Pt worried entire med regimen is causing him incontinence. With education Pt seemed to accept that his incontinence only correlates with him taking sleeping aid (had been discussed previously as well). However he remained worried about it and felt better with Zoloft going back down to 100mg. To help with depression, he agreed to add Wellbutrin (lower zoloft back to 100mg and start wellbutrin xl 150mg). Pt was admitted following a suicide attempt by insulin overdose. Since patient initially refused medications and now with new med changes, grant writer explained the need to remain on unit a couple days more...to make sure of continued stability; also need to set up more aftercare support (pt agrees to Partial day program). Pt became upset about this saying he still wanted discharge tomorrow, though could offer no urgent reason for it; grant writer again explained situation but pt got up, walked out of room and refused to talk anymore. He draped some cloths over his head and face and sat in the hallway, refusing all meds, including insulin and POC's. He later told nurse that he would only consent to restarting his insulin if he was discharged on day of his choosing. Impression: -significant regression revealing limited coping skills and providing glimpse into why patient decompensates in the community. 10/06/24: Patient was not happy not knowing when he has been discharged, reports that 3 day notice was missing that he signed 1 last week Friday. However staff confirmed that he is not ever signed a 3 day notice before. Therefore, he was irritable and refused treatment yesterday included blood sugar coverage. He agreed to take some insulin last night after talking to me. Hospitalist also give him more insulin both short and long-acting. As the result blood sugar this morning was 26, recheck a couple more times was 54-58. He is asymptomatic. Did not want to eat breakfast as usual his pattern, but ate lunch. He is seen by hospitalist he this morning. Hospitalist is also aware of sodium level at the 133. I review the medication list with him, he is receptive with plans of consistently taking medications. Poor coping skills when things not going his way. Denies depression and anxiety, denies anger issues, incongruent with mood and affect. No SI/SIB/HI/AVH. He refused medication last night but took it this morning. Plan Patient on 15 minute checks for safety. CV. DC mirtazapine causes oversedation resulting in incontinence LOWER back to Zoloft to 100 mg; pt uncomfortable with this med change since familiar with 100mg tabs START Wellbutrin XL 150mg daily for depression Continue Clonidine Patch (Catapres) to mitigate anxious/depressive movements; last 7 days. ?? still on? Work with treatment team to do collateral and aftercare. SW will do collateral with mom. Refuses and substance abuse treatment Time Spent With Patient Time: Total time managing care of this patient today ____ minutes.
[2024-10-07 09:57] LABS: Anion Gap 12 (12-20); Blood Urea Nitrogen 12 mg/dL (9-16); Calcium 9.8 mg/dL (8.4-10.2); Carbon Dioxide 32 mmol/L (22-29); Chloride 102 mmol/L (96-108); Creatinine Clr Calc Pharmacy 121.4; Estimated Glomerular Filt Rate > 60; Potassium 4.4 mmol/L (3.3-5.1); Sodium 142 mmol/L (135-145)
[2024-10-07 10:00] VITALS: BP 119/63; PULSE 88; TEMP 36.4; O2SAT 98
[2024-10-07 12:01] LABS: Glucose, Whole Blood 185 mg/dL (60-115)
[2024-10-07 14:38] LABS: Glucose, Whole Blood 359 mg/dL (60-115)
[2024-10-07 18:39] LABS: Glucose, Whole Blood 231 mg/dL (60-115)
[2024-10-07 19:49] VITALS: BP 122/69; PULSE 109; RESP 18; TEMP 36.7; O2SAT 98
[2024-10-07 21:15] LABS: Glucose, Whole Blood 123 mg/dL (60-115)
[2024-10-07] MEDS: [UNRECOGNIZED DRUG - OTHER] 24 EACH SUBCUT (21:34)
[2024-10-08 08:00] VITALS: BP 137/85; PULSE 88; RESP 16; TEMP 36.8; O2SAT 99
[2024-10-08 08:17] LABS: Glucose, Whole Blood 275 mg/dL (60-115)
[2024-10-08] MEDS: buPROPion HCl XL 150 MG TAB.ER.24H PO (08:41)
--- NOTE | 2024-10-08 10:40 | PM.PSYDC ---
DS: Providers Provider Date of Service: 10/08/24 Date of admission: 10/01/24 12:40 Date of discharge: 10/08/24 Primary care physician: Unknown Physician Attending physician on admission: Brian Peñaloza Consults: 10/06/24 01:48 Consult to Hospitalist Routine Comment: Consulting Provider: [facility] Hospitalists Reason For Exam: POC over 600 Attending physician on discharge: Brian Peñaloza DS: Diagnosis Discharge Diagnosis (1) Acute metabolic encephalopathy: Status: Acute (2) MDD (major depressive disorder), severe: Status: Acute (3) Suicide attempt: Status: Acute (4) Cocaine use disorder: Status: Acute (5) Diabetes mellitus type 1, uncontrolled: Status: Acute (6) Cannabis use disorder: Status: Acute DS: Medications Discharge Medications Home Medications: Home Medications ?Medication ?Instructions ?Recorded ?Confirmed insulin degludec 200 unit/mL (3 24 unit subcut BEDTIME 10/08/24 10/08/24 mL) subcutaneous pen (Tresiba FlexTouch U-200 insulin) insulin lispro 100 unit/mL See Protocol subcut TID PRN 10/08/24 10/08/24 subcutaneous pen Hyperglycemia Previous Rx's ?Medication ?Instructions ?Recorded CeQur Simplicity 2 unit device #8 ea 09/02/24 (bolus insulin pump, 200 unit) diabetic supplies, miscellan. #1 ea 09/02/24 (Ce[employer]ur Simplicity Community Service Officer) Treshiba 24 units subcut BEDTIME ##0 10/08/24 bupropion HCl 150 mg 24 hr tablet, 150 mg PO DAILY 30 days #30 tabs 10/08/24 extended release clonidine 0.1 mg/24 hr weekly 0.1 mg transdermal Sa@0900 30 days 10/08/24 transdermal patch #4 ea hydroxyzine HCl 25 mg tablet 25 mg PO Q6H PRN mild anxiety 30 10/08/24 days #60 tabs melatonin 5 mg tablet 5 mg PO BEDTIME PRN sleep 30 days 10/08/24 #30 tabs sertraline 100 mg tablet 100 mg PO DAILY 30 days #30 tabs 10/08/24 Data Data Completed and Pending Completed studies during hospitalization [Text1]: 10/01/24 10/01/24 10/02/24 16:47 20:44 07:42 Sodium Potassium Chloride Carbon Dioxide Anion Gap BUN Creatinine Estim Creat Clear Calc Estimated GFR POC Glucose 413 H* 88 261 H Random Glucose Estimat Average Glucose Hemoglobin A1c % Calcium Total Bilirubin AST ALT Alkaline Phosphatase Total Protein Albumin Triglycerides Cholesterol LDL Cholesterol, Calc HDL Cholesterol TSH 10/02/24 10/02/24 10/02/24 10:12 11:37 16:47 Sodium 137 Potassium 5.0 D Chloride 101 Carbon Dioxide 29 Anion Gap 12 BUN 16 Creatinine 0.80 Estim Creat Clear Calc 106.2 Estimated GFR > 60 POC Glucose 337 H 154 H Random Glucose 349 H Estimat Average Glucose 171 Hemoglobin A1c % 7.6 H Calcium 10.0 D Total Bilirubin 0.3 AST 20 ALT 23 Alkaline Phosphatase 78 Total Protein 7.1 Albumin 4.2 Triglycerides 110 Cholesterol 212 H LDL Cholesterol, Calc 138 H HDL Cholesterol 52 TSH 3.72 10/02/24 10/03/24 10/03/24 20:13 07:50 11:15 Sodium Potassium Chloride Carbon Dioxide Anion Gap BUN Creatinine Estim Creat Clear Calc Estimated GFR POC Glucose 219 H 254 H 281 H Random Glucose Estimat Average Glucose Hemoglobin A1c % Calcium Total Bilirubin AST ALT Alkaline Phosphatase Total Protein Albumin Triglycerides Cholesterol LDL Cholesterol, Calc HDL Cholesterol TSH 10/03/24 10/03/24 10/03/24 15:32 16:39 19:56 Sodium Potassium Chloride Carbon Dioxide Anion Gap BUN Creatinine Estim Creat Clear Calc Estimated GFR POC Glucose 187 H 185 H 279 H Random Glucose Estimat Average Glucose Hemoglobin A1c % Calcium Total Bilirubin AST ALT Alkaline Phosphatase Total Protein Albumin Triglycerides Cholesterol LDL Cholesterol, Calc HDL Cholesterol TSH 10/04/24 10/04/24 10/04/24 07:46 11:40 17:03 Sodium Potassium Chloride Carbon Dioxide Anion Gap BUN Creatinine Estim Creat Clear Calc Estimated GFR POC Glucose 267 H 191 H 301 H Random Glucose Estimat Average Glucose Hemoglobin A1c % Calcium Total Bilirubin AST ALT Alkaline Phosphatase Total Protein Albumin Triglycerides Cholesterol LDL Cholesterol, Calc HDL Cholesterol TSH 10/04/24 10/05/24 10/05/24 21:07 07:18 21:32 Sodium Potassium Chloride Carbon Dioxide Anion Gap BUN Creatinine Estim Creat Clear Calc Estimated GFR POC Glucose 127 H 381 H* > 600 H* Random Glucose Estimat Average Glucose Hemoglobin A1c % Calcium Total Bilirubin AST ALT Alkaline Phosphatase Total Protein Albumin Triglycerides Cholesterol LDL Cholesterol, Calc HDL Cholesterol TSH 10/06/24 10/06/24 10/06/24 01:15 02:22 07:49 Sodium 133 L Potassium 4.5 Chloride 93 L Carbon Dioxide 30 H Anion Gap 15 BUN 18 H Creatinine 1.01 Estim Creat Clear Calc 84.1 Estimated GFR > 60 POC Glucose > 600 H* 26 L* Random Glucose 659 H* Estimat Average Glucose Hemoglobin A1c % Calcium 10.1 Total Bilirubin AST ALT Alkaline Phosphatase Total Protein Albumin Triglycerides Cholesterol LDL Cholesterol, Calc HDL Cholesterol TSH 10/06/24 10/06/24 10/06/24 08:30 09:33 11:55 Sodium Potassium Chloride Carbon Dioxide Anion Gap BUN Creatinine Estim Creat Clear Calc Estimated GFR POC Glucose 54 L* 58 L* 54 L* Random Glucose Estimat Average Glucose Hemoglobin A1c % Calcium Total Bilirubin AST ALT Alkaline Phosphatase Total Protein Albumin Triglycerides Cholesterol LDL Cholesterol, Calc HDL Cholesterol TSH 10/06/24 10/06/24 10/06/24 17:03 18:15 22:03 Sodium Potassium Chloride Carbon Dioxide Anion Gap BUN Creatinine Estim Creat Clear Calc Estimated GFR POC Glucose 519 H* 561 H* 124 H Random Glucose Estimat Average Glucose Hemoglobin A1c % Calcium Total Bilirubin AST ALT Alkaline Phosphatase Total Protein Albumin Triglycerides Cholesterol LDL Cholesterol, Calc HDL Cholesterol TSH 10/07/24 10/07/24 10/07/24 08:08 09:39 11:46 Sodium 142 Potassium 4.4 Chloride 102 Carbon Dioxide 32 H Anion Gap 12 BUN 12 Creatinine 0.70 Estim Creat Clear Calc 121.4 Estimated GFR > 60 POC Glucose 125 H 185 H Random Glucose 132 H Estimat Average Glucose Hemoglobin A1c % Calcium 9.8 Total Bilirubin AST ALT Alkaline Phosphatase Total Protein Albumin Triglycerides Cholesterol LDL Cholesterol, Calc HDL Cholesterol TSH 10/07/24 10/07/24 10/07/24 14:34 17:16 20:54 Sodium Potassium Chloride Carbon Dioxide Anion Gap BUN Creatinine Estim Creat Clear Calc Estimated GFR POC Glucose 359 H* 231 H 123 H Random Glucose Estimat Average Glucose Hemoglobin A1c % Calcium Total Bilirubin AST ALT Alkaline Phosphatase Total Protein Albumin Triglycerides Cholesterol LDL Cholesterol, Calc HDL Cholesterol TSH 10/08/24 08:05 Sodium Potassium Chloride Carbon Dioxide Anion Gap BUN Creatinine Estim Creat Clear Calc Estimated GFR POC Glucose 275 H Random Glucose Estimat Average Glucose Hemoglobin A1c % Calcium Total Bilirubin AST ALT Alkaline Phosphatase Total Protein Albumin Triglycerides Cholesterol LDL Cholesterol, Calc HDL Cholesterol TSH DS: Summary Hospital Course Hospital Course: HPI: Pt is a 34 year old, Czech and Portuguese speaking male with history of depression, type 1 diabetes who appears his stated age that is evaluated on the medical floor at [facility] following an overdose of insulin. Pt appears to be a poor historian at this time and attempts to minimize the severity of his behavior leading him to the medical floor. Patient was intentional overdose of insulin. Pt reported that he does not have a good recollection of the events leading him to the medical floor however, indicated that he was having issues with his sensor that reads his blood sugar and indicated that he began self administering insulin. Upon arrival, his blood sugar was 30. Continued to minimize of his suicide attempt, denies it as an attempt rather than the sensor of his insulin pump was not working right. Has been increased depression and hopeless the past couple of years, being diabetic and dental issues due to drug use . He fees hopeless. Reports not taking his antidepressant in the past 3 days prior to coming to the hospital. 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 Has to move back to his parents. He also used crack and marijuana daily even though he reports he has been cutting down a lot on crack use due to the fact that it ruined his teeth. Formulation/clinical reasoning: Not taking his antidepressant for 3 days, overdose on insulin, giving him 14 units not knowing home much the insulin needed, given him self 14 units. Blood sugar was only 30 upon arrival in the ED. he was medically admitted to medical floor. History of 3 total suicide attempts-want overdose on heroin per old record, previously overdose on insulin. Minimize of his mental health, minimize suicide attempt, increasing stress from not able to work, low self esteem related to his teeth. Feeling depressed and hopeless. Not goal directed. Given the above information, patient would definitely benefit from restrictive environment for his safety, and medication management. Hospital course: 10/01/24: Currently has no safety concerns Continue with sertraline 100 mg daily for depression. He has not taking that for 3 days to be admitted. Reports he is supposed to take trazodone 100 mg at bedtime for insomnia. However reports diarrhea and he stopped taking that from home. Given melatonin 6 mg at bedtime scheduled for insomnia. P.r.n. trazodone for sleep if melatonin is not effective. Lantus 8 units daily in the morning. Patient have sliding-scale 4 times a day to monitor blood sugar and given insulin lispro accordingly. Review p.r.n. hydroxyzine and Zyprexa available for anxiety and severe agitation/anxiety Will monitor his blood sugar for hyper/ hypoglycemic. His own insulin pump was removed from the emergency room. 10/02 pt admits he messed with insulin pump/indicator to intentionally overdose onf insulin He says at that moment, i didn't really care...at that moment, yea i wanted to ... now however, he denies any no SI, says he feels regular, like normal... moments like this happen every few months...and always in afternoon. He has no warning. He feels medications otherwise are helpful. He agrees to increase Zoloft to 150mg to see if increase can prevent such moments; also agrees to try Clonidine patch to see if this too can mitigate such moments, as he often forgets to take medications in the morning. 10/03 Patient remains feeling better, mood is good, no SI at all. Tolerating medication increases. Patient says he has insomnia but trazodone causes loose stool; discussed risks/side effects of mirtazapine and patient agrees to try 10/04 still felt heavily sedated with mirtazapine; discussed whether to treat insomnia or not and patient would like to see if he is able to sleep without mirtazapine or trazodone 10/05 pt refused meds this morning Pt worried entire med regimen is causing him incontinence. With education Pt seemed to accept that his incontinence only correlates with him taking sleeping aid (had been discussed previously as well). However he remained worried about it and felt better with Zoloft going back down to 100mg. To help with depression, he agreed to add Wellbutrin (lower zoloft back to 100mg and start wellbutrin xl 150mg). Pt was admitted following a suicide attempt by insulin overdose. Since patient initially refused medications and now with new med changes, rfp writer explained the need to remain on unit a couple days more...to make sure of continued stability; also need to set up more aftercare support (pt agrees to Partial day program). Pt became upset about this saying he still wanted discharge tomorrow, though could offer no urgent reason for it; rfp writer again explained situation but pt got up, walked out of room and refused to talk anymore. He draped some cloths over his head and face and sat in the hallway, refusing all meds, including insulin and POC's. He later told nurse that he would only consent to restarting his insulin if he was discharged on day of his choosing. Impression:-significant regression revealing limited coping skills and providing glimpse into why patient decompensates in the community. 10/06/24: Patient was not happy not knowing when he has been discharged, reports that 3 day notice was missing that he signed 1 last week Friday. However staff confirmed that he is not ever signed a 3 day notice before. Therefore, he was irritable and refused treatment yesterday included blood sugar coverage. He agreed to take some insulin last night after talking to me. Hospitalist also give him more insulin both short and long-acting. As the result blood sugar this morning was 26, recheck a couple more times was 54-58. He is asymptomatic. Did not want to eat breakfast as usual his pattern, but ate lunch. He is seen by hospitalist he this morning. Hospitalist is also aware of sodium level at the 133. I review the medication list with him, he is receptive with plans of consistently taking medications. Poor coping skills when things not going his way. Denies depression and anxiety, denies anger issues, incongruent with mood and affect. No SI/SIB/HI/AVH. He refused medication last night but took it this morning. Time Spent with Patient Time attestation: Total time managing care of this patient today ____ minutes. Discharge Plan Discharge Anticipated Discharge Date/Time: 10/08/24 11:30 Patient Disposition: Home, Self-Care Discharge Diagnosis: MDD, recurrent, severe with psychotic features, in full remission Referrals: [facility] [Other] - 1 Week Referral Note: The [facility] provides outpatient treatment for individuals looking to reduce or stop substance use. The program takes a patient led approach, prescribing safe and effective medications with referrals to additional recovery supports, such as therapy or recovery coaching. Walk-In Hours- Friday- 8am-430pm, Friday 10am-430pm [facility] [Other] - 1 Week Referral Note: [facility] welcomes all people in recovery from substance use and those affected by substance use. Services are free and provide [id number] supports including peer facilitated support; relapse prevention and tobacco cessation support groups; social events; access to computers for job readiness/job search activities; and advocacy and recovery coaching. [facility]-Therapy with Ese Trinh [Other] - 10/11/24 12:00 pm Referral Note: appointment is in the office [facility]- Psychiatry with Jayant Chidi [Other] - 11/01/24 9:20 am Referral Note: telehealth [facility]'s Partial Hospitalization Program Intake [Other] - 10/13/24 8:00 am Referral Note: When you enter the hospital from the [facility] entrance, follow the road up past the emergency room and go towards speech and hearing. There will be signs for the center for behavioral health follow those signs and enter the brick building that is behind speech and hearing Physician,Alicia J [Primary Care Provider, Medical] - 1 Week Discharge Medications: New clonidine 0.1 mg/24 hr Patch Weekly 0.1 mg transdermal Sa@0900 30 Days Qty: 4 0RF Protocol: Hold for SBP< HOLD for SBP < : 90 bupropion HCl 150 mg Tablet Extended Release 24 Hr 150 mg PO DAILY 30 Days Qty: 30 0RF Treshiba 24 units subcut BEDTIME Qty: 0 0RF Continued (DME) CeQur Simplicity Community Service Officer Misc See Rx Instructions .ROUTE .MEDSUPPLY Qty: 1 1RF Rx Instructions: As directed for use with CeQur insulin patch (DME) CeQur Simplicity 2 unit device See Rx Instructions .ROUTE .MEDSUPPLY Qty: 8 11RF Rx Instructions: every 4 days to administer insulin sertraline 100 mg tablet 100 mg PO DAILY 30 Days Qty: 30 0RF hydroxyzine HCl 25 mg Tablet 25 mg PO Q6H PRN (Reason: mild anxiety) 30 Days Qty: 60 0RF insulin degludec [Tresiba FlexTouch U-200] 200 unit/mL (3 mL) insulin pen 24 unit SUBCUT BEDTIME insulin lispro 100 unit/mL insulin pen See Protocol SUBCUT TID PRN (Reason: Hyperglycemia) Protocol: Insulin Correction Scale Less than or equal to 110 ---- Give (units): 0 111 to 150 Give (units): 0 151 to 200 Give (units): 2 201 to 250 Give (units): 4 251 to 300 Give (units): 6 301 to 350 Give (units): 8 Greater than 350 Give (units): 10 Call MD if Blood Glucose > : 350 Changed melatonin 5 mg tablet 5 mg PO BEDTIME PRN (Reason: sleep) 30 Days Qty: 30 0RF Discontinued trazodone 100 mg tablet 100 mg PO BEDTIME PRN (Reason: for insomnia) 30 Days Qty: 90 1RF Discharge Orders: Discharge Order (Routine); Ordered 10/08/24 Ordered By: Brian Peñaloza Diet: Diabetic diet Activity on Discharge: As tolerated Stand Alone Forms: Patient Portal Discharge page, Community Support Print Language: Czech Care Plan Goals: Maintain mood and safe behaviors Take medications as prescribed Continue to pursue sobriety Practice coping skills Continue with outpatient providers and reach out to them as needed Health Concerns: Mood stability and behaviors Sobriety Diabetes Plan of Treatment: Follow up with your PCP, psychiatric provider and other outpatient providers regarding above concerns Take medications as prescribed Assessment: Risk assessment at time of discharge:? Patient was interviewed prior to discharge and found to be fully oriented and without any SI or HI. Patient has improved insight and judgment and wants to continue treatment. Patient is not in imminent risk of harm to self or others and has a safety plan that includes presenting to the closest ER or calling 911 if feeling unsafe.? Patient has been observed closely by nursing and unit staff throughout admission; patient has not engaged in any behaviors that suggest dangerousness to self or others and has demonstrated appropriate behaviors and impulse control
== END 2024-10-08 11:23 | disposition home or self-care (01) | DRG 751 ==
PROVIDERS: Nurse Practitioner Family; Registered Nurse; Admitting Provider Psychiatry & Neurology Psychiatry; Visit Provider Psychiatry & Neurology Psychiatry
DX: F33.3 Major depressive disorder, recurrent, severe with psychotic symptoms (principal); E10.65 Type 1 diabetes mellitus with hyperglycemia; F12.90 Cannabis use, unspecified, uncomplicated; F14.10 Cocaine abuse, uncomplicated; T38.3X2A Poisoning by insulin and oral hypoglycemic [antidiabetic] drugs, intentional self-harm, initial encounter; T43.226A Underdosing of selective serotonin reuptake inhibitors, initial encounter; Z96.41 Presence of insulin pump (external) (internal); Z79.4 Long term (current) use of insulin; Z87.891 Personal history of nicotine dependence; Z79.899 Other long term (current) drug therapy
CPT/HCPCS: 36415; 80048; 80053; 80061; 82947; 83036; 84443

== ENCOUNTER → 2024-10-01 12:40 | Outpatient (BNV) | payer OTHER, SELFPAY | PROVIDERS: Admitting Provider Psychiatry & Neurology Psychiatry; Visit Provider Student in an Organized Health Care Education/Training Program | DX: G93.41 Metabolic encephalopathy (principal) | CPT/HCPCS: 99232; 99499 ==

== ENCOUNTER → 2024-10-01 12:40 | Outpatient (BNV) | payer OTHER, SELFPAY | PROVIDERS: Admitting Provider Psychiatry & Neurology Psychiatry; Visit Provider Psychiatry & Neurology Psychiatry | DX: F32.2 Major depressive disorder, single episode, severe without psychotic features (principal); T14.91XA Suicide attempt, initial encounter; F14.10 Cocaine abuse, uncomplicated; E10.65 Type 1 diabetes mellitus with hyperglycemia; F12.90 Cannabis use, unspecified, uncomplicated | CPT/HCPCS: 99232 ==

== ENCOUNTER → 2024-10-21 15:24 | Outpatient (BNVA) | payer OTHER, SELFPAY | PROVIDERS: PCP Internal Medicine; Visit Provider Internal Medicine | DX: F32.2 Major depressive disorder, single episode, severe without psychotic features (principal); E78.5 Hyperlipidemia, unspecified; F13.10 Sedative, hypnotic or anxiolytic abuse, uncomplicated; E10.65 Type 1 diabetes mellitus with hyperglycemia | CPT/HCPCS: 99212 ==

== ENCOUNTER → 2024-10-21 15:24 | Outpatient (AMB) | payer OTHER, SELFPAY ==
--- OUTSIDE RECORDS SUMMARY | 2024-10-21 15:29 | XMS_ITS | Clinical Summary ---
Author Organization [facility] ity Address [address] [place] [address] Care Team Providers Care Senior Consulting Manager Name Role Phone Unavailable Primary Care [...] 2010 COVID-19 Vaccine (2023-2 5 season) 2023 Depression Screening 03/24/2024 Influenza Vaccine (#1) 2024 HIB Vaccines Aged [...]
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
[2024-10-21 15:52] VITALS: BP 120/72; PULSE 74; TEMP 36.3; O2SAT 98; BMI 22.7
== END ==
LOC: HO.HMCH 15:25
PROVIDERS: PCP Internal Medicine; Visit Provider Internal Medicine
DX: F19.10 Other psychoactive substance abuse, uncomplicated (principal); F32.2 Major depressive disorder, single episode, severe without psychotic features; E10.65 Type 1 diabetes mellitus with hyperglycemia

== ENCOUNTER 2024-12-03 20:43 | Emergency (ER) | payer OTHER, SELFPAY ==
[2024-12-03 20:54] VITALS: BP 129/79; PULSE 104; RESP 16; TEMP 36.8; O2SAT 99; BMI 23.0
--- OUTSIDE RECORDS SUMMARY | 2024-12-03 21:07 | XMS_ITS | Clinical Summary ---
Author Organization [facility] ity Address [address] [place] [address] Care Team Providers Care Assistant Health Educator Name Role Phone Unavailable Primary Care Provider [...]
--- NOTE | 2024-12-03 21:21 | ED_ITS ---
HPI - General Adult General Chief complaint: Abdominal Pain Stated complaint: Abdominal pain Time Seen by Provider: 12/03/24 21:14 Source: patient Mode of arrival: ambulatory Limitations: no limitations History of Present Illness ED Provider: DR. Cisneros HPI narrative: 34-year-old male with history of diabetes came in for evaluation of 2 days of feeling nauseous and vomiting, patient stated that he is able to keep liquids but unable to swallow solid food, patient declined history of drinking alcohol or using drugs in the past 2-3 days, otherwise no diarrhea, normal bowel movement yesterday with no blood, no blood in the vomit, no fever, no chills, no history of eating bad food, no sick contact exposure, Able to pass flatus, declined history of intra-abdominal surgery in the past. Admit to smoking marijuana almost daily, no alcohol consumption, no other drug abuse as per patient. Related Data Home Medications ?Medication ?Instructions ?Recorded ?Confirmed insulin degludec 200 unit/mL (3 24 unit subcut BEDTIME 10/08/24 10/08/24 mL) subcutaneous pen (Tresiba FlexTouch U-200 insulin) insulin lispro 100 unit/mL See Protocol subcut TID PRN 10/08/24 10/08/24 subcutaneous pen Hyperglycemia Previous Rx's ?Medication ?Instructions ?Recorded CeQur Simplicity 2 unit device #8 ea 09/02/24 (bolus insulin pump, 200 unit) diabetic supplies, miscellan. #1 ea 09/02/24 (CeQur Simplicity Yarding And Folding Machine Operator) Treshiba 24 units subcut BEDTIME ##0 10/08/24 clonidine 0.1 mg/24 hr weekly 0.1 mg transdermal Sa@09 00 30 days 10/08/24 transdermal patch #4 ea hydroxyzine HCl 25 mg tablet 25 mg PO Q6H PRN mild anx iety 30 10/08/24 days #60 tabs melatonin 5 mg tablet 5 mg PO BEDTIME PRN sleep 30 days 10/08/24 #30 tabs sertraline 100 mg tablet 100 mg PO DAILY 30 days #30 tabs 10/08/24 bupropion HCl 150 mg 24 hr tablet, 150 mg PO DAILY 90 days #90 tabs 11/18/24 extended release omeprazole 40 mg capsule,delayed 40 mg PO DAILY #20 ca ps 12/03/24 release Allergies Allergy/AdvReac Type Severity Reaction Status Date / Time No Known Allergies (No Known Allergy Verified 12/03/24 20:58 Allergies*) Review of Systems 2 Review of Systems: all other systems are reviewed and are negative Constitutional: Reports as per HPI and Reports no additional constitutional complaints Eyes: Reports as per HPI and Reports no additional eye complaints Reports system reviewed and no additional complaints, except as documented Cardiovascular: Reports as per HPI and Reports no additional cardiovascular complaints Respiratory: Reports as per HPI and Reports no additional respiratory complaints Gastrointestinal: Reports as per HPI and Reports no additional gastrointestinal complaints Genitourinary: Reports no additional female genitourinary complaints Musculoskeletal: Reports no additional musculoskeletal complaints Skin/Breast: Reports system reviewed and no additional complaints, except as docu Psychiatric: Reports no additional psychiatric complaints Endocrine: Reports no additional endocrine complaints Hematologic/Lymphatic: Reports no additional hematologic/lymphatic complaints Allergic/Immunologic: Reports no additional allergic/immunologic complaints Reports system reviewed and no additional complaints, except as documented and Reports Abnormal speech present PMFSH Past Medical History Medical History Suicidal ideation Anxiety Suicide attempt Nicotine dependence MDD (major depressive disorder), severe Cocaine use disorder Noncompliance Dental decay Hyperlipidemia LDL goal <100 Surgical History No history of previous surgery Family History Family History Maternal Grandmother Diabetes, type I Social History Social History Household Members: Family Household Members Other:: parents Housing: House Housing Other:: rents a room Do you presently have visiting nurse or other home services: No Unable to assess alcohol history related to: Unknown Alcohol intake: never Comment: 1:1 sitter for SI Patient Tobacco Use Status: Former Tobacco user (09/29/24) Tobacco use type: Cigarette Cigarettes Per Day: 5 Smoked in Last 30 Days: Yes e-Cigarette/Vaping Use: Currently Using Second Hand Smoke Exposure: Yes Use of substances other than those prescribed or required for medical reasons: Yes Substance Use Type: Marijuana Advance Directives: No Advance Directives Information Provided: No Do you have a plan to hurt others: No Plan service: No Current occupational status: employed Sexual orientation: Straight/Heterosexual Cognitive needs: No Hearing needs: No Vision needs: No Physical Exam ED Vital Signs: Vital Signs - 24 hr 12/03/24 20:54 12/03/24 23:07 Temperature 98.2 F 98.0 F Pulse Rate 104 H 97 Respiratory Rate 16 20 Blood Pressure 129/79 129/81 Pulse Oximetry 99 96 Oxygen Delivery Method Room Air Room Air BMI result Body Mass Index 23.0 Vital signs have been reviewed and appear to be correct. Blood pressure elevated. Heart rate slightly tachycardic, Respiratory rate normal. Temperature normal. Oxygen saturation normal. Appearance: Alert. Oriented X3. No acute distress. Head: Normal external exam. Normocephalic. Atraumatic. No Campbell signs noted. No raccoon eyes noted Eyes: PERRLA. EOMI. Conjunctiva and sclera normal. Eyelids normal. ENT: TM's Normal. Pharynx normal. Uvula midline. Moist mucous membranes. No trismus noted. No drooling noted. No muffled voice noted. Neck: Normal inspection. Neck supple. FROM. No adenopathy. Thyroid Normal. No meningeal signs. No neck mass noted. CVS: Normal heart rate and rhythm. Heart sound normal. No murmurs noted. Pulses normal throughout. Respiratory: No respiratory distress. Painless inspiration. Breath sounds normal. No wheezes/rales/rhonchi noted. Chest nontender. No accessory muscle usage noted or decreased air movement noted. Abdomen: Soft and nontender. Bowel sounds normal in all 4 quadrants. No distention noted. No organomegaly noted. No visible injury noted. Back: No CVA tenderness. Full range of motion noted. Skin: Skin warm and dry. Normal skin color. Normal skin turgor. No rashes/lesions/lacerations noted. Extremities: No lower extremity edema. Extremities exhibit normal range of motion. Extremities nontender. Neuro: Oriented X 3. Cranial nerve exam: II-XII are grossly intact No motor deficit. No sensory deficit. Reflexes normal. Course Reevaluation(s) Reevaluation #1: Feels better, patient is able to tolerate oral challenge in the emergency department able to keep crackers and chris dayanna without nausea or vomiting. Repeat abdominal exam showed no tenderness, no rebound tenderness no indication for radiographic studies today. Labs are unremarkable. Patient's symptoms is likely secondary to gastritis will start the patient on Prilosec. Patient had no vomiting while in the ED. No dysuria, no frequency urination, no fever, no chills. Time: 23:25 Medications Administered Discontinued Medications Generic Name Dose Route Start Last Admin Trade Name Freq PRN Reason Stop Dose Admin Al Hydroxide/Mg Hydroxide 30 ml 12/03/24 21:20 12/03/24 22:18 Magnesium Hydrox/Alum Hydrox 30 Ml Oral.Susp PO 12/03/24 21:21 30 ml ONCE ONE Administration Omeprazole 40 mg 12/03/24 21:20 12/03/24 22:18 Omeprazole/Na Bicarb Oral Susp 20 Mg/10 Ml Ud Cup PO 12/03/24 21:21 40 mg ONCE ONE Administration Medical Decision Making Differential Diagnosis Differential Diagnoses: The differential diagnosis associated with the presentation includes ( gastritis, gastroenteritis, colitis, diverticulitis, acute appendicitis, electrolyte derangement, severe anemia, dehydration , drug induced vomiting.) Admission/Observation Consideration of admission/observation: Escalation of care including admission/observation considered Lab Data MDM Lab Attestation statement: I reviewed the patient's lab results. 12/03/24 21:28 12/03/24 21:28 Labs: Lab Results 12/03/24 Range/Units 21:28 WBC 9.0 (4.8-10.8) X10*3/uL RBC 5.22 (4.60-5.80) X10*6/uL Hgb 14.8 (14.0-18.0) g/dl Hct 44.7 (42.0-52.0) % MCV 85.6 (80.0-98.0) fL MCH 28.4 (27.0-33.0) pg MCHC 33.1 (31.0-36.0) g/dl RDW 13.1 (11.0-16.0) % Plt Count 262 D (160-400) X10*3/uL MPV 11.8 (9.4-12.4) fL Immature Gran % (Auto) 0.2 (0.0-0.4) % Neut % (Auto) 78.9 H (45-73) % Lymph % (Auto) 13.1 L (20-40) % Ada % (Auto) 6.2 (2-11) % Eos % (Auto) 1.0 (0-4) % Baso % (Auto) 0.6 (0-2) % Lymph # (Auto) 1.2 (1.2-4.9) X10*3/uL Ada # (Auto) 0.6 (0.1-1.2) X10*3/uL Eos # (Auto) 0.1 (0.0-0.4) X10*3/uL Baso # (Auto) 0.1 (0.0-0.2) X10*3/uL Abs Immat Gran (auto) 0.02 (0.00-0.03) X10*3/uL Absolute Neuts (auto) 7.1 (2.0-8.3) x10*3/uL Absolute Nucleated RBC 0.000 (0.0-0.012) X10*3/uL Nucleated RBC % (auto) 0.0 (0.0-0.2) /100WBC Sodium 137 (135-145) mmol/L Potassium 4.2 (3.3-5.1) mmol/L Chloride 103 (96-108) mmol/L Carbon Dioxide 24 (22-29) mmol/L Anion Gap 14 (12-20) BUN 17 H (9-16) mg/dL Creatinine 0.81 (0.5-1.4) mg/dL Estim Creat Clear Calc 112.8 Estimated GFR > 60 Random Glucose 249 H (60-115) mg/dL Calcium 9.5 (8.4-10.2) mg/dL Total Bilirubin 0.5 (0.0-1.0) mg/dL AST 24 (5-37) U/L ALT 16 (0-40) U/L Alkaline Phosphatase 92 (39-117) U/L Total Protein 7.6 (6.5-8.0) g/dL Albumin 4.4 (3.5-5.0) g/dL Lipase 7 L (8-78) U/L Urine Color Yellow Urine Appearance Clear Urine pH 6.0 (5.0-9.0) Ur Specific [place] 1.025 (1.005-1.025) Urine Protein Negative (Neg-Trace) mg/dL Urine Glucose (UA) 250 H (Negative) mg/dL Urine Ketones 40 (Negative) mg/dL Urine Blood Negative (Negative) Urine Nitrite Negative (Negative) Ur Leukocyte Esterase Trace H (Negative) Urine RBC 0-2 (0-2) /HPF Urine WBC 6-10 H (0-5) /HPF Ur Squamous Epith Cells 0-2 (0-2) /HPF Urine Bacteria None Seen (None Seen) Hyaline Casts 0-2 (0-2) /LPF Discharge Plan Discharge Clinical Impression: Gastritis Instructions: Gastritis (ED) Prescriptions: New omeprazole 40 mg capsule,delayed release(DR/EC) 40 mg PO DAILY Qty: 20 0RF No Action (DME) CeQur Simplicity Yarding And Folding Machine Operator Misc See Rx Instructions .ROUTE .MEDSUPPLY Qty: 1 1RF Rx Instructions: As directed for use with CeQur insulin patch (DME) CeQur Simplicity 2 unit device See Rx Instructions .ROUTE .MEDSUPPLY Qty: 8 11RF Rx Instructions: every 4 days to administer insulin bupropion HCl 150 mg tablet extended release 24 hr 150 mg PO DAILY 90 Days Qty: 90 1RF clonidine 0.1 mg/24 hr Patch Weekly 0.1 mg transdermal Sa@0900 30 Days Qty: 4 0RF Protocol: Hold for SBP< HOLD for SBP < : 90 Treshiba 24 units subcut BEDTIME Qty: 0 0RF sertraline 100 mg tablet 100 mg PO DAILY 30 Days Qty: 30 0RF hydroxyzine HCl 25 mg Tablet 25 mg PO Q6H PRN (Reason: mild anxiety) 30 Days Qty: 60 0RF melatonin 5 mg tablet 5 mg PO BEDTIME PRN (Reason: sleep) 30 Days Qty: 30 0RF insulin degludec [Tresiba FlexTouch U-200] 200 unit/mL (3 mL) insulin pen 24 unit SUBCUT BEDTIME insulin lispro 100 unit/mL insulin pen See Protocol SUBCUT TID PRN (Reason: Hyperglycemia) Protocol: Insulin Correction Scale Less than or equal to 110 ---- Give (units): 0 111 to 150 Give (units): 0 151 to 200 Give (units): 2 201 to 250 Give (units): 4 251 to 300 Give (units): 6 301 to 350 Give (units): 8 Greater than 350 Give (units): 10 Call MD if Blood Glucose > : 350 Referrals: Ryland Miller MD [Primary Care Provider, Internal Medicine] Print Language: Maori
[2024-12-03 21:33] LABS: MANUAL DIFF FLAG NO
[2024-12-03 21:35] LABS: Appearance Urine Clear; Glucose Urine UA 250 mg/dL (Negative); PH 6.0 (5.0-9.0); Specific Gravity - Urine 1.025 (1.005-1.025); UMIC TRIGGER UACC YES
[2024-12-03 21:37] LABS: Hematocrit 44.7 % (42.0-52.0); Hemoglobin 14.8 g/dl (14.0-18.0); Imm Gran Abs Auto 0.02 X10*3/uL (0.00-0.03); Imm Gran Pct Auto 0.2 % (0.0-0.4); Lymphocytes Absolute Auto 1.2 X10*3/uL (1.2-4.9); Mean Corpuscular HGB Conc 33.1 g/dl (31.0-36.0); Mean Corpuscular Hemoglobin 28.4 pg (27.0-33.0); Mean Corpuscular Volume 85.6 fL (80.0-98.0); NRBC Abs Auto 0.000 X10*3/uL (0.0-0.012); NRBC Pct Auto 0.0 /100WBC (0.0-0.2); Platelet Count 262 X10*3/uL (160-400); Red Blood Count 5.22 X10*6/uL (4.60-5.80); UACC Culture Trigger YES; White Blood Count 9.0 X10*3/uL (4.8-10.8)
[2024-12-03 21:48] LABS: Alanine Aminotransferase 16 U/L (0-40); Albumin Level 4.4 g/dL (3.5-5.0); Alkaline Phosphatase 92 U/L (39-117); Anion Gap 14 (12-20); Aspartate Amino Transferase 24 U/L (5-37); Blood Urea Nitrogen 17 mg/dL (9-16); Calcium 9.5 mg/dL (8.4-10.2); Carbon Dioxide 24 mmol/L (22-29); Chloride 103 mmol/L (96-108); Creatinine Clr Calc Pharmacy 112.8; Estimated Glomerular Filt Rate > 60; Lipase 7 U/L (8-78); Potassium 4.2 mmol/L (3.3-5.1); Sodium 137 mmol/L (135-145); Total Protein 7.6 g/dL (6.5-8.0)
--- NOTE | 2024-12-03 22:01 | PC.NURSE ---
Pt found laying in stretcher bundled up in his sweatshirt without distress noted. He denies any pain at this time, RN noted crackers and gingerale on the bedside table. RN awaiting one of the medications from pharmacy in order to medicate the pt per MAY.
[2024-12-03] MEDS: Omeprazole/Na Bicarb Oral Susp 20 MG/10 ML UD Cup 40 MG PO (22:18)
[2024-12-03] MEDS: Magnesium Hydrox/Alum Hydrox 30 ML ORAL.SUSP PO (22:18)
[2024-12-03 23:07] VITALS: BP 129/81; PULSE 97; RESP 20; TEMP 36.7; O2SAT 96
[2024-12-03 23:58] VITALS: BP 129/81; PULSE 97; RESP 20; TEMP 36.7; O2SAT 96
== END 2024-12-03 23:58 | disposition home or self-care (01) ==
PROVIDERS: Emergency Provider Emergency Medicine; PCP Internal Medicine
DX: K29.70 Gastritis, unspecified, without bleeding (principal); R11.2 Nausea with vomiting, unspecified; R13.10 Dysphagia, unspecified
CPT/HCPCS: 36415; 80053; 81001; 83690; 85025; 87086; 99283; 99284

== ENCOUNTER 2025-01-04 02:10 | Emergency (ER) | payer OTHER, SELFPAY ==
[2025-01-04 02:14] VITALS: BP 150/98; PULSE 96; O2SAT 94; BMI 22.4
[2025-01-04 02:15] VITALS: BP 149/97; PULSE 88; RESP 20; TEMP 36.8; O2SAT 100
[2025-01-04 02:52] LABS: Hematocrit 48.2 % (42.0-52.0); Hemoglobin 15.8 g/dl (14.0-18.0); Imm Gran Abs Auto 0.04 X10*3/uL (0.00-0.03); Imm Gran Pct Auto 0.4 % (0.0-0.4); Lymphocytes Absolute Auto 1.4 X10*3/uL (1.2-4.9); MANUAL DIFF FLAG NO; Mean Corpuscular HGB Conc 32.8 g/dl (31.0-36.0); Mean Corpuscular Hemoglobin 28.0 pg (27.0-33.0); Mean Corpuscular Volume 85.5 fL (80.0-98.0); NRBC Abs Auto 0.000 X10*3/uL (0.0-0.012); NRBC Pct Auto 0.0 /100WBC (0.0-0.2); Platelet Count 290 X10*3/uL (160-400); Red Blood Count 5.64 X10*6/uL (4.60-5.80); White Blood Count 10.2 X10*3/uL (4.8-10.8)
[2025-01-04 03:13] LABS: Alanine Aminotransferase 13 U/L (0-40); Albumin Level 4.6 g/dL (3.5-5.0); Alkaline Phosphatase 95 U/L (39-117); Anion Gap 17 (12-20); Aspartate Amino Transferase 20 U/L (5-37); Blood Urea Nitrogen 14 mg/dL (9-16); Calcium 10.0 mg/dL (8.4-10.2); Carbon Dioxide 26 mmol/L (22-29); Chloride 105 mmol/L (96-108); Creatinine Clr Calc Pharmacy 128.0; Estimated Glomerular Filt Rate > 60; Lipase 7 U/L (8-78); Magnesium 1.9 mg/dL (1.6-2.6); Potassium 4.1 mmol/L (3.3-5.1); Sodium 144 mmol/L (135-145); Total Protein 8.2 g/dL (6.5-8.0)
--- OUTSIDE RECORDS SUMMARY | 2025-01-04 03:26 | XMS_ITS | Clinical Summary ---
[facility] [address] [place] [address] Care Team Providers Care Mill Tender Name Role Phone Unavailable Primary Care Provider [...] of 3 - 19+ 3-dose series) 2010 HPV Vaccines (1 - 3-dose SCD M series) 2018 Depression Screening 03/24/2024 COVID-19 Vaccine (1 - 2023-2 5 season) 2024 Influenza Vaccine (#1) 2024 RSV Immunization Adult Patie nts (1 - 1-dose 75+ series) 2066 HIB Vaccines Aged Out No longer eligi [...]
--- NOTE | 2025-01-04 05:09 | ED_ITS ---
HPI - Nausea/Vomiting/Diarrhea General Chief complaint: Nausea/Vomiting/Diarrhea Stated complaint: nausea/vomiting/hx GERD Time Seen by Provider: 01/04/25 05:08 Source: patient and EMS Mode of arrival: EMS Limitations: no limitations History of Present Illness ED Provider: Antonino GRAY HPI Narrative: The patient is a 34-year-old male with a history of polysubstance abuse, depression, anxiety, GERD, and type 1 diabetes presenting to the ED for evaluation of epigastric abdominal discomfort described as pressure. The patient reports he has been without his omeprazole for the past 2 weeks, woke yesterday morning with mild pressure and discomfort of the epigastrium with 5 subsequent episodes of nonbloody vomitus without associated fever/chills, diarrhea, chest pain, shortness of breath, recent sick contacts, or recent trauma. The patient reports symptoms began after he ate a late night meal of fast food and pasta Friday into Friday. The patient denies surgical abdominal history. Related Data Home Medications ?Medication ?Instructions ?Recorded ?Confirmed insulin degludec 200 unit/mL (3 24 unit subcut BEDTIME 10/08/24 10/08/24 mL) subcutaneous pen (Tresiba FlexTouch U-200 insulin) insulin lispro 100 unit/mL See Protocol subcut TID PRN 10/08/24 10/08/24 subcutaneous pen Hyperglycemia Previous Rx's ?Medication ?Instructions ?Recorded CeQur Simplicity 2 unit device #8 ea 09/02/24 (bolus insulin pump, 200 unit) diabetic supplies, miscellan. #1 ea 09/02/24 (CeQur Simplicity Securities Compliance Examiner) Treshiba 24 units subcut BEDTIME ##0 10/08/24 clonidine 0.1 mg/24 hr weekly 0.1 mg transdermal Sa@09 00 30 days 10/08/24 transdermal patch #4 ea hydroxyzine HCl 25 mg tablet 25 mg PO Q6H PRN mild anx iety 30 10/08/24 days #60 tabs melatonin 5 mg tablet 5 mg PO BEDTIME PRN sleep 30 days 10/08/24 #30 tabs sertraline 100 mg tablet 100 mg PO DAILY 30 days #30 tabs 10/08/24 bupropion HCl 150 mg 24 hr tablet, 150 mg PO DAILY 90 days #90 tabs 11/18/24 extended release omeprazole 40 mg capsule,delayed 40 mg PO DAILY #20 ca ps 12/03/24 release famotidine 20 mg tablet (Pepcid) 20 mg PO BID #28 tabs 01/04/25 omeprazole 20 mg capsule,delayed 20 mg PO DAILY #14 ca ps 01/04/25 release Allergies Allergy/AdvReac Type Severity Reaction Status Date / Time No Known Allergies (No Known Allergy Verified 01/04/25 02:21 Allergies*) Review of Systems 2 Review of Systems: Yes all other systems are reviewed and are negative PMFSH Past Medical History Medical History Suicidal ideation Anxiety Suicide attempt Nicotine dependence MDD (major depressive disorder), severe Cocaine use disorder Noncompliance Dental decay Hyperlipidemia LDL goal <100 Surgical History No history of previous surgery Family History Family History Maternal Grandmother Diabetes, type I Social History Social History Household Members: Family Household Members Other:: parents Housing: House Housing Other:: rents a room Do you presently have visiting nurse or other home services: No Alcohol intake: never Comment: 1:1 sitter for SI Patient Tobacco Use Status: Former Tobacco user (09/29/24) Tobacco use type: Cigarette Cigarettes Per Day: 5 Smoked in Last 30 Days: Yes e-Cigarette/Vaping Use: Currently Using Second Hand Smoke Exposure: Yes Substance Use Type: Marijuana Advance Directives: No Advance Directives Information Provided: Yes Do you have a plan to hurt others: No Plan service: No Current occupational status: employed Sexual orientation: Straight/Heterosexual Cognitive needs: No Hearing needs: No Vision needs: No Physical Exam 2 Vital Signs: Vital Signs: Last Vital Signs Temp 98.1 F 01/04/25 05:48 Pulse 97 01/04/25 05:48 Resp 14 01/04/25 05:48 BP 137/93 H 01/04/25 05:48 Pulse Ox 98 01/04/25 05:48 O2 Del Method Room Air 01/04/25 05:48 BMI result Body Mass Index 22.4 CONSTITUTIONAL: The patient appears non-toxic, well nourished and in no acute distress. Vital signs as documented. HEAD: Atraumatic, normocephalic. EYES: EOMs grossly intact, pupils equal, conjunctiva clear, no exudate. ENT: Nares patent, no discharge. Airway patent, no audible stridor, visible mucosa is pink and moist without noted lesions. NECK: Trachea is midline, no obvious masses or gross abnormalities. CHEST: Symmetric movement, normal appearance. LUNGS: LS present and CTAB, no w/r/r. Non-labored work of breathing. CARDIAC: Regular Rhythm, S1/S2 appreciated, no murmurs, rubs or gallops. ABDOMEN: Abdomen soft and non-tender x4 quadrants, no palpable masses or organomegaly. Negative CVAT bilaterally : Deferred. EXTREMITIES: Normal tone, moves all extremities spontaneously without reported pain. No obvious acute injury or deformity noted. NEURO: Alert and oriented x3, CN II-XII appear grossly intact. Cerebellar Functioning grossly intact. No obvious sensory or motor deficits. Speech clear and appropriate. PSYCH: normal affect, appropriate eye contact, fluid speech, with appropriate response to questioning. No reported suicidality or homicidality. SKIN: Warm, dry, color appropriate, normal turgor. No rashes noted. Medications Administered Discontinued Medications Generic Name Dose Route Start Last Admin Trade Name Freq PRN Reason Stop Dose Admin Al Hydroxide/Mg Hydroxide 30 ml 01/04/25 05:17 01/04/25 05:30 Magnesium Hydrox/Alum Hydrox 30 Ml Oral.Susp PO 01/04/25 05:18 30 ml ONCE ONE Administration Famotidine 20 mg 01/04/25 05:17 01/04/25 05:30 Famotidine 20 Mg Tablet PO 01/04/25 05:18 20 mg ONCE ONE Administration Lidocaine HCl 15 ml 01/04/25 05:17 01/04/25 05:30 Lidocaine Hcl Viscous 2 % 15 Ml Solution PO 01/04/25 05:18 15 ml ONCE ONE Administration Omeprazole 20 mg 01/04/25 05:17 01/04/25 05:30 Omeprazole 20 Mg Capsule. PO 01/04/25 05:18 20 mg ONCE ONE Administration Medical Decision Making Medical Decision Making MDM Narrative: 5:18 AM 01/04/2025 (Antonietta GRAY): The patient is a 34-year-old male with a history of polysubstance abuse, depression, anxiety, GERD, and type 1 diabetes presenting to the ED for evaluation of epigastric abdominal discomfort described as pressure. The patient reports he has been without his omeprazole for the past 2 weeks, woke yesterday morning with mild pressure and discomfort of the epigastrium with 5 subsequent episodes of nonbloody vomitus without associated fever/chills, diarrhea, chest pain, shortness of breath, recent sick contacts, or recent trauma. The patient reports symptoms began after he ate a late night meal of fast food and pasta Friday into Friday. The patient denies surgical abdominal history. On exam the patient has no abdominal tenderness or CVA tenderness. Pain is not reproducible with palpation or percussion. The patient is overall well-appearing, nontoxic. No indication for CT imaging. Laboratory evaluation shows no leukocytosis, anemia, electrolyte abnormality, or TRACY. Patient's LFTs are unremarkable, lipase is normal. Patient's presentation is consistent with likely gastritis/GERD, chart review reveals patient was seen in November and treated for gastritis with good effect. The patient will be treated with a GI cocktail, pending improvement in symptoms patient will likely be discharged with a 2 week course of omeprazole. Patient has been educated that he will need to follow up with PCP to discuss possible long-term treatment with the omeprazole. 5:59 AM 01/04/2025 (Antonietta GRAY): Patient's symptoms have improved following GI cocktail, patient will be discharged as described above. Admission/Observation Consideration of admission/observation: Escalation of care including admission/observation considered Lab Data MDM Lab Attestation statement: I reviewed the patient's lab results. 01/04/25 02:48 01/04/25 02:48 Labs: Lab Results 01/04/25 Range/Units 02:48 WBC 10.2 (4.8-10.8) X10*3/uL RBC 5.64 (4.60-5.80) X10*6/uL Hgb 15.8 (14.0-18.0) g/dl Hct 48.2 (42.0-52.0) % MCV 85.5 (80.0-98.0) fL MCH 28.0 (27.0-33.0) pg MCHC 32.8 (31.0-36.0) g/dl RDW 13.0 (11.0-16.0) % Plt Count 290 (160-400) X10*3/uL MPV 11.4 (9.4-12.4) fL Immature Gran % (Auto) 0.4 (0.0-0.4) % Neut % (Auto) 78.0 H (45-73) % Lymph % (Auto) 13.2 L (20-40) % [place] % (Auto) 7.5 (2-11) % Eos % (Auto) 0.5 (0-4) % Baso % (Auto) 0.4 (0-2) % Lymph # (Auto) 1.4 (1.2-4.9) X10*3/uL [place] # (Auto) 0.8 (0.1-1.2) X10*3/uL Eos # (Auto) 0.1 (0.0-0.4) X10*3/uL Baso # (Auto) 0.0 (0.0-0.2) X10*3/uL Abs Immat Gran (auto) 0.04 H (0.00-0.03) X10*3/uL Absolute Neuts (auto) 8.0 (2.0-8.3) x10*3/uL Absolute Nucleated RBC 0.000 (0.0-0.012) X10*3/uL Nucleated RBC % (auto) 0.0 (0.0-0.2) /100WBC Sodium 144 (135-145) mmol/L Potassium 4.1 (3.3-5.1) mmol/L Chloride 105 (96-108) mmol/L Carbon Dioxide 26 (22-29) mmol/L Anion Gap 17 (12-20) BUN 14 (9-16) mg/dL Creatinine 0.71 (0.5-1.4) mg/dL Estim Creat Clear Calc 128.0 Estimated GFR > 60 Random Glucose 65 (60-115) mg/dL Calcium 10.0 (8.4-10.2) mg/dL Magnesium 1.9 (1.6-2.6) mg/dL Total Bilirubin 0.4 (0.0-1.0) mg/dL Direct Bilirubin 0.1 (0.0-0.5) mg/dL AST 20 (5-37) U/L ALT 13 (0-40) U/L Alkaline Phosphatase 95 (39-117) U/L Total Protein 8.2 H (6.5-8.0) g/dL Albumin 4.6 (3.5-5.0) g/dL Lipase 7 L (8-78) U/L External Record Review External record reviewed: Outpatient record and Prior outpatient labs Discharge Plan Discharge Clinical Impression: Gastritis Qualifiers: Gastritis type: unspecified gastritis Chronicity: acute Gastritis bleeding: w ithout bleeding Qualified Code(s): K29.00 - Acute gastritis without bleeding Patient Disposition: Home, Self-Care Instructions: Gastritis (ED) Additional Instructions: Thank you for choosing [facility]'s Emergency Department for your care today. Thankfully your laboratory evaluation and exam today are reassuring. At this time there is no indication for admission to the hospital or continued ED observation, and it is safe to discharge you home. Your symptoms are consistent with inflammation of your stomach, a condition known as gastritis. Thankfully your symptoms improved following interventions in the ED and there was no indication for CT imaging at this time. Please take omeprazole and Pepcid as directed for the next 2 weeks. Please follow up with your primary care physician for re-evaluation, discussion regarding chronic omeprazole prescription as a possible permanent solution to your symptoms, and for continued preventative care. If you do not have a primary care physician, please call the [facility] at [phone] to establish a new primary care physician. While waiting to establish your new primary care physician, you can call our [facility] at [phone] for non-emergency needs. Please return to the emergency department if you develop a severe or sudden change in your symptoms, a fever over 100.4 that does not improve with Tylenol or Ibuprofen, recurrent vomiting, or any other new or worsening symptoms or concerns. Prescriptions: New famotidine [Pepcid] 20 mg tablet 20 mg PO BID Qty: 28 0RF omeprazole 20 mg capsule,delayed release(DR/EC) 20 mg PO DAILY Qty: 14 0RF No Action (DME) CeQur Simplicity Securities Compliance Examiner Misc See Rx Instructions .ROUTE .MEDSUPPLY Qty: 1 1RF Rx Instructions: As directed for use with CeQur insulin patch (DME) CeQur Simplicity 2 unit device See Rx Instructions .ROUTE .MEDSUPPLY Qty: 8 11RF Rx Instructions: every 4 days to administer insulin bupropion HCl 150 mg tablet extended release 24 hr 150 mg PO DAILY 90 Days Qty: 90 1RF omeprazole 40 mg capsule,delayed release(DR/EC) 40 mg PO DAILY Qty: 20 0RF clonidine 0.1 mg/24 hr Patch Weekly 0.1 mg transdermal Sa@0900 30 Days Qty: 4 0RF Protocol: Hold for SBP< HOLD for SBP < : 90 Treshiba 24 units subcut BEDTIME Qty: 0 0RF sertraline 100 mg tablet 100 mg PO DAILY 30 Days Qty: 30 0RF hydroxyzine HCl 25 mg Tablet 25 mg PO Q6H PRN (Reason: mild anxiety) 30 Days Qty: 60 0RF melatonin 5 mg tablet 5 mg PO BEDTIME PRN (Reason: sleep) 30 Days Qty: 30 0RF insulin degludec [Tresiba FlexTouch U-200] 200 unit/mL (3 mL) insulin pen 24 unit SUBCUT BEDTIME insulin lispro 100 unit/mL insulin pen See Protocol SUBCUT TID PRN (Reason: Hyperglycemia) Protocol: Insulin Correction Scale Less than or equal to 110 ---- Give (units): 0 111 to 150 Give (units): 0 151 to 200 Give (units): 2 201 to 250 Give (units): 4 251 to 300 Give (units): 6 301 to 350 Give (units): 8 Greater than 350 Give (units): 10 Call MD if Blood Glucose > : 350 Print Language: Khmer
[2025-01-04] MEDS: Lidocaine HCl Viscous 2 % 15 ML SOLUTION PO (05:30)
[2025-01-04] MEDS: Magnesium Hydrox/Alum Hydrox 30 ML ORAL.SUSP PO (05:30)
--- NOTE | 2025-01-04 05:37 | PC.NURSE ---
pt medicated according to mar tolerated po well
[2025-01-04 05:48] VITALS: BP 137/93; PULSE 97; RESP 14; TEMP 36.7; O2SAT 98
[2025-01-04 06:07] VITALS: BP 137/93; PULSE 97; RESP 14; TEMP 527.2; TEMP 981; O2SAT 98
== END 2025-01-04 06:18 | disposition home or self-care (01) ==
PROVIDERS: Emergency Provider Emergency Medicine
DX: K29.00 Acute gastritis without bleeding (principal)
CPT/HCPCS: 36415; 80053; 82248; 83690; 83735; 85025; 99284

== ENCOUNTER 2025-01-05 14:43 | Outpatient (AMB) | payer OTHER, SELFPAY ==
[2025-01-05 14:55] VITALS: BP 118/74; PULSE 85; RESP 18; TEMP 36.2; O2SAT 95; BMI 22.4
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
--- OUTSIDE RECORDS SUMMARY | 2025-01-05 18:28 | XMS_ITS | Clinical Summary ---
[facility] Address [address] [place] [address] Care Team Providers Care Blower Feeder Dyed Raw Stock Name Role Phone Unavailable Primary Care Provider [...]
== END 2025-01-05 15:34 | disposition home or self-care (01) ==
LOC: HO.HMCH 14:44
DX: K21.9 Gastro-esophageal reflux disease without esophagitis (principal); L21.0 Seborrhea capitis

== ENCOUNTER → 2025-01-05 14:43 | Outpatient (BNVA) | payer OTHER, SELFPAY | DX: K21.9 Gastro-esophageal reflux disease without esophagitis (principal); L21.0 Seborrhea capitis | CPT/HCPCS: 99212 ==

== ENCOUNTER 2025-01-06 18:02 | Emergency (ER) | payer OTHER, SELFPAY ==
[2025-01-06 18:18] VITALS: BP 137/76; PULSE 96; RESP 16; TEMP 36.7; O2SAT 96; BMI 22.4
--- NOTE | 2025-01-06 18:25 | ED_ITS ---
HPI - General Adult General Chief complaint: Dental/Oral Stated complaint: tooth extraction 01/06 bleeding Time Seen by Provider: 01/06/25 20:04 Source: patient Mode of arrival: ambulatory Limitations: no limitations History of Present Illness ED Provider: Antonino GRAY HPI narrative: The patient is a 34-year-old male with GERD, polysubstance abuse, depression, hyperlipidemia, type 1 diabetes, and anxiety, presenting to the ED reporting at 15:00 today he had 2 upper molars extracted from his right maxilla. The patient reports since that time the area has not stopped bleeding. The patient reports he has been biting on gauze, denies any drinking through straws, hot liquids, or smoking. Patient denies any pain, no concern for dry socket. The patient denies anticoagulation. Related Data Home Medications ?Medication ?Instructions ?Recorded ?Confirmed insulin degludec 200 unit/mL (3 24 unit subcut BEDTIME 10/08/24 01/05/25 mL) subcutaneous pen (Tresiba FlexTouch U-200 insulin) insulin lispro 100 unit/mL See Protocol subcut TID PRN 10/08/24 01/05/25 subcutaneous pen Hyperglycemia Previous Rx's ?Medication ?Instructions ?Recorded CeQur Simplicity 2 unit device #8 ea 09/02/24 (bolus insulin pump, 200 unit) diabetic supplies, miscellan. #1 ea 09/02/24 (CeQur Simplicity Advice Clerk) Treshiba 24 units subcut BEDTIME ##0 10/08/24 clonidine 0.1 mg/24 hr weekly 0.1 mg transdermal Sa@09 00 30 days 10/08/24 transdermal patch #4 ea hydroxyzine HCl 25 mg tablet 25 mg PO Q6H PRN mild anx iety 30 10/08/24 days #60 tabs sertraline 100 mg tablet 100 mg PO DAILY 30 days #30 tabs 10/08/24 bupropion HCl 150 mg 24 hr tablet, 150 mg PO DAILY 90 days #90 tabs 11/18/24 extended release benzoyl peroxide 5 % topical 1 appl topical BID PRN ac ne #227 01/05/25 cleanser grams famotidine 20 mg tablet (Pepcid) 20 mg PO BID 90 days #180 tabs 01/05/25 omeprazole 20 mg capsule,delayed 20 mg PO DAILY #90 ca ps 01/05/25 release Allergies Allergy/AdvReac Type Severity Reaction Status Date / Time No Known Allergies (No Known Allergy Verified 01/06/25 18:18 Allergies*) Review of Systems Review of Systems: Yes all other systems are reviewed and are negative PMFSH Past Medical History Medical History Suicidal ideation Anxiety Suicide attempt Nicotine dependence MDD (major depressive disorder), severe Cocaine use disorder Noncompliance Dental decay Hyperlipidemia LDL goal <100 Surgical History No history of previous surgery Family History Family History Maternal Grandmother Diabetes, type I Social History Social History Household Members: Family Household Members Other:: parents Housing: House Housing Other:: rents a room Do you presently have visiting nurse or other home services: No Alcohol intake: never Comment: 1:1 sitter for SI Patient Tobacco Use Status: Former Tobacco user (09/29/24) Tobacco use type: Cigarette Cigarettes Per Day: 5 Smoked in Last 30 Days: No e-Cigarette/Vaping Use: Currently Using Second Hand Smoke Exposure: Yes Use of substances other than those prescribed or required for medical reasons: Yes Substance Use Type: Marijuana Substance Use Frequency: Daily Advance Directives: No Advance Directives Information Provided: No Do you have a plan to hurt others: No Plan service: No Current occupational status: employed Sexual orientation: Straight/Heterosexual Cognitive needs: No Hearing needs: No Vision needs: No Physical Exam ED Vital Signs: Vital Signs - 24 hr 01/06/25 18:18 01/06/25 20:19 Temperature 98.1 F Pulse Rate 96 85 Respiratory Rate 16 16 Blood Pressure 137/76 141/84 H Pulse Oximetry 96 100 Oxygen Delivery Method Room Air Room Air BMI result Body Mass Index 22.4 CONSTITUTIONAL: The patient appears non-toxic, well nourished and in no acute distress. Vital signs as documented. HEAD: Atraumatic, normocephalic. EYES: EOMs grossly intact, pupils equal, conjunctiva clear, no exudate. ENT: Nares patent, no discharge. Airway patent, no audible stridor, visible mucosa is pink and moist without noted lesions. There is very slow mild capill emeli bleeding noted around a intact clot of the posterior extraction site. NECK: trachea is midline, no obvious masses or gross abnormalities. CHEST: Symmetric movement, normal appearance. LUNGS: Non-labored work of breathing. CARDIAC: No evidence of hypoperfusion. ABDOMEN: Nondistended, no obvious injury. : Deferred. EXTREMITIES: Moves all extremities spontaneously without reported pain. No obv ious injury or deformity noted. NEURO: Alert and oriented x3, CN II-XII appear grossly intact. Cerebellar Functioning grossly intact. Speech clear and appropriate. SKIN: Warm, dry, color appropriate. No rashes or lesions noted. Course Course Course Narrative: RME: 34 year male presents to ED for bleeding since having tooth extracted around 15:00 today. Patient has had to right upper molar tooth extraction. Patient denies any fever chills or swelling. Positive for active bleeding from right upper molar socket. Medical Decision Making Medical Decision Making [facility] Narrative: 8:42 PM 01/06/2025 (Antonietta GRAY): The patient is a 34-year-old male with GERD, polysubstance abuse, depression, hyperlipidemia, type 1 diabetes, and anxiety, presenting to the ED reporting at 15:00 today he had 2 upper molars extracted from his right maxilla. The patient reports since that time the area has not stopped bleeding. The patient reports he has been biting on gauze, denies any drinking through straws, hot liquids, or smoking. Patient denies any pain, no concern for dry socket. The patient denies anticoagulation. On exam the patient has very slow mild capillary bleeding noted around an intact clot from the posterior extraction site. Vital signs reassuring. The patient will be treated with application of Surgicel for approximately 1 hour and we will reassess. 10:06 PM 01/06/2025 (Antonietta GRAY): Went to reassess the patient for resolution of bleeding, patient appears to have eloped from the ED following initial intervention. Admission/Observation Consideration of admission/observation: Escalation of care including admission/observation considered Lab Data [facility] Lab Attestation statement: I reviewed the patient's lab results. External Record Review External record reviewed: Outpatient record Discharge Plan Discharge Clinical Impression: Surgical wound hemorrhage after dental procedure Patient Disposition: Elopement Instructions: Tooth Extraction (DC) Additional Instructions: Thank you for choosing [facility]'s Emergency Department for your care today. Thankfully your bleeding from your tooth extraction site is not severe. At this time there is no indication for admission to the hospital or continued ED observation, and it is safe to discharge you home. It is common to have slight bleeding from the site of a tooth extraction for up to 12 hours after the procedure. We treated your bleeding with a specialized gauze which should reduce your bleeding. It is extremely important not to drink any warm fluids, drink from a straw, or smoke anything for 2-3 days after the tooth extraction as this will increase your bleeding. You must follow up with the your dentist for re-evaluation of this bleeding. Please also follow up with your primary care physician for re-evaluation, additional management of your symptoms, and continued preventative care. If you do not have a primary care physician, please call the [facility] at [phone] to establish a new primary care physician. While waiting to establish your new primary care physician, you can call our Walk-in Care Clinic at [phone] for non-emergency needs. Please return to the emergency department if you develop a severe or sudden change in your symptoms, a fever over 100.4 that does not improve with Tylenol or Ibuprofen, recurrent vomiting, or any other new or worsening symptoms or concerns. Prescriptions: No Action (DME) CeQur Simplicity Advice Clerk Misc See Rx Instructions .ROUTE .MEDSUPPLY Qty: 1 1RF Rx Instructions: As directed for use with CeQur insulin patch (DME) CeQur Simplicity 2 unit device See Rx Instructions .ROUTE .MEDSUPPLY Qty: 8 11RF Rx Instructions: every 4 days to administer insulin bupropion HCl 150 mg tablet extended release 24 hr 150 mg PO DAILY 90 Days Qty: 90 1RF clonidine 0.1 mg/24 hr Patch Weekly 0.1 mg transdermal Sa@0900 30 Days Qty: 4 0RF Protocol: Hold for SBP< HOLD for SBP < : 90 Treshiba 24 units subcut BEDTIME Qty: 0 0RF sertraline 100 mg tablet 100 mg PO DAILY 30 Days Qty: 30 0RF hydroxyzine HCl 25 mg Tablet 25 mg PO Q6H PRN (Reason: mild anxiety) 30 Days Qty: 60 0RF insulin degludec [Tresiba FlexTouch U-200] 200 unit/mL (3 mL) insulin pen 24 unit SUBCUT BEDTIME insulin lispro 100 unit/mL insulin pen See Protocol SUBCUT TID PRN (Reason: Hyperglycemia) Protocol: Insulin Correction Scale Less than or equal to 110 ---- Give (units): 0 111 to 150 Give (units): 0 151 to 200 Give (units): 2 201 to 250 Give (units): 4 251 to 300 Give (units): 6 301 to 350 Give (units): 8 Greater than 350 Give (units): 10 Call MD if Blood Glucose > : 350 omeprazole 20 mg capsule,delayed release(DR/EC) 20 mg PO DAILY Qty: 90 3RF famotidine [Pepcid] 20 mg tablet 20 mg PO BID 90 Days Qty: 180 2RF benzoyl peroxide 5 % cleanser 1 appl topical BID PRN (Reason: acne) Qty: 227 2RF Referrals: Dash Solomon FNP-C [Primary Care Provider, Internal Medicine] Clinical Impression: Surgical wound hemorrhage after dental procedure Discharge Date/Time: 01/06/25 23:00 Print Language: Bahamian
[2025-01-06 20:19] VITALS: BP 141/84; PULSE 85; RESP 16; O2SAT 100
--- OUTSIDE RECORDS SUMMARY | 2025-01-06 20:46 | XMS_ITS | Clinical Summary ---
[facility] [address] [place] [address] Care Team Providers Care Logistic Specialist Name Role Phone Unavailable Primary Care Provider [...]
== END 2025-01-06 23:00 | disposition left against medical advice (07) ==
PROVIDERS: Emergency Provider Emergency Medicine
DX: L76.22 Postprocedural hemorrhage of skin and subcutaneous tissue following other procedure (principal)
CPT/HCPCS: 99282; 99284

== ENCOUNTER 2025-01-24 20:52 | Emergency (ER) | payer OTHER, SELFPAY ==
[2025-01-24 20:58] VITALS: BP 149/90; BP 170/110; PULSE 70; PULSE 82; RESP 16; TEMP 36.6; O2SAT 100; O2SAT 99; BMI 23.3
[2025-01-24 21:02] LABS: Glucose, Whole Blood 147 mg/dL (60-115)
[2025-01-24 21:03] VITALS: BP 149/90; PULSE 82; RESP 16; TEMP 36.6; O2SAT 99
[2025-01-24 21:27] LABS: MANUAL DIFF FLAG NO
[2025-01-24 21:28] LABS: Hematocrit 42.1 % (42.0-52.0); Hemoglobin 13.5 g/dl (14.0-18.0); Imm Gran Abs Auto 0.03 X10*3/uL (0.00-0.03); Imm Gran Pct Auto 0.4 % (0.0-0.4); Lymphocytes Absolute Auto 1.1 X10*3/uL (1.2-4.9); Mean Corpuscular HGB Conc 32.1 g/dl (31.0-36.0); Mean Corpuscular Hemoglobin 27.8 pg (27.0-33.0); Mean Corpuscular Volume 86.6 fL (80.0-98.0); NRBC Abs Auto 0.000 X10*3/uL (0.0-0.012); NRBC Pct Auto 0.0 /100WBC (0.0-0.2); Platelet Count 244 X10*3/uL (160-400); Red Blood Count 4.86 X10*6/uL (4.60-5.80); White Blood Count 8.4 X10*3/uL (4.8-10.8)
[2025-01-24 21:44] LABS: Alanine Aminotransferase 14 U/L (0-40); Albumin Level 3.9 g/dL (3.5-5.0); Alkaline Phosphatase 79 U/L (39-117); Anion Gap 11 (12-20); Aspartate Amino Transferase 21 U/L (5-37); Blood Urea Nitrogen 9 mg/dL (9-16); Calcium 9.2 mg/dL (8.4-10.2); Carbon Dioxide 26 mmol/L (22-29); Chloride 107 mmol/L (96-108); Creatinine Clr Calc Pharmacy 142.8; Estimated Glomerular Filt Rate > 60; Potassium 3.4 mmol/L (3.3-5.1); Sodium 141 mmol/L (135-145); Total Protein 7.0 g/dL (6.5-8.0)
--- OUTSIDE RECORDS SUMMARY | 2025-01-24 22:13 | XMS_ITS | Clinical Summary ---
[facility] [address] [place] [address] Care Team Providers Care Tooling Specialist Name Role Phone Unavailable Primary Care [...]
[2025-01-24 22:38] LABS: Glucose, Whole Blood 133 mg/dL (60-115)
--- NOTE | 2025-01-24 23:04 | ED_ITS ---
HPI - Recheck/Abnormal Lab/Rx General Chief Complaint: Recheck/Abnormal Lab/Rx Stated Complaint: Hypoglycemia, sugar was 50 now 155 Time Seen by Provider: 01/24/25 22:43 Source: patient Mode of arrival: EMS Limitations: no limitations History of Present Illness ED Provider: HPI narrative: Per EMS report patient was hypoglycemic found out by family to be out of it and stumbling with glucose of 50 giving IM glucagon and was placed on IV D10 drip, patient states he took 8 units of Humalog at 19:00 for glucose of 300 and did not feel like eating. Has been eating in the ER and alert oriented glucose has been stable. Related Data Home Medications ?Medication ?Instructions ?Recorded ?Confirmed insulin degludec 200 unit/mL (3 24 unit subcut BEDTIME 10/08/24 01/05/25 mL) subcutaneous pen (Tresiba FlexTouch U-200 insulin) insulin lispro 100 unit/mL See Protocol subcut TID PRN 10/08/24 01/05/25 subcutaneous pen Hyperglycemia Previous Rx's ?Medication ?Instructions ?Recorded CeQur Simplicity 2 unit device #8 ea 09/02/24 (bolus insulin pump, 200 unit) diabetic supplies, Vault Dragoncellan. #1 ea 09/02/24 (CeQur Simplicity Interior Design Professor) Treshiba 24 units subcut BEDTIME ##0 10/08/24 clonidine 0.1 mg/24 hr weekly 0.1 mg transdermal Sa@09 00 30 days 10/08/24 transdermal patch #4 ea hydroxyzine HCl 25 mg tablet 25 mg PO Q6H PRN mild anx iety 30 10/08/24 days #60 tabs sertraline 100 mg tablet 100 mg PO DAILY 30 days #30 tabs 10/08/24 bupropion HCl 150 mg 24 hr tablet, 150 mg PO DAILY 90 days #90 tabs 11/18/24 extended release benzoyl peroxide 5 % topical 1 appl topical BID PRN ac ne #227 01/05/25 cleanser grams famotidine 20 mg tablet (Pepcid) 20 mg PO BID 90 days #180 tabs 01/05/25 omeprazole 20 mg capsule,delayed 20 mg PO DAILY #90 ca ps 01/05/25 release Allergies Allergy/AdvReac Type Severity Reaction Status Date / Time No Known Allergies (No Known Allergy Verified 01/24/25 21:02 Allergies*) Review of Systems 2 Constitutional: Constitutional: Reports as per [facility] Past Medical History Medical History Suicidal ideation Anxiety Suicide attempt Nicotine dependence MDD (major depressive disorder), severe Cocaine use disorder Noncompliance Dental decay Hyperlipidemia LDL goal <100 Surgical History No history of previous surgery Family History Family History Maternal Grandmother Diabetes, type I Social History Social History Household Members: Family Household Members Other:: parents Housing: House Housing Other:: rents a room Do you presently have visiting nurse or other home services: No Alcohol intake: never Comment: 1:1 sitter for SI Patient Tobacco Use Status: Former Tobacco user (09/29/24) Tobacco use type: Cigarette Cigarettes Per Day: 5 Smoked in Last 30 Days: No e-Cigarette/Vaping Use: Currently Using Second Hand Smoke Exposure: Yes Use of substances other than those prescribed or required for medical reasons: Yes Substance Use Type: Marijuana Advance Directives: No Advance Directives Information Provided: Yes service: No Current occupational status: employed Sexual orientation: Straight/Heterosexual Cognitive needs: No Hearing needs: No Vision needs: No Physical Exam 2 Exam: Exam: General: ?Appears of stated age ? ?Resp: ?No wheezing rales rhonchi no stridor moving air well ? ?MSK: FROM, strength 5/5 all extremities ? Skin: Warm, dry, intact, ? ?Neuro: ?Alert and oriented x3, moving upper and lower extremities symmetrically, no obvious facial asymmetry noted, cranial nerves 2-12 intact Vital Signs: Vital Signs: Last Vital Signs Temp 97.8 F 01/24/25 21:03 Pulse 82 01/24/25 21:03 Resp 16 01/24/25 21:03 BP 149/90 H 01/24/25 21:03 Pulse Ox 99 01/24/25 21:03 O2 Del Method Room Air 01/24/25 21:03 BMI result Body Mass Index 23.3 Medical Decision Making Medical Decision Making MDM Narrative: 11:09 PM 01/24/2025 (Dr. Pankaj Triplett): Patient has been euglycemic for the past few hours, E took short-acting insulin at 19:00 at this point he is cleared for discharge, has a history of substance use disorder has not been using drugs since this summer Differential Diagnosis Differential Diagnoses: The differential diagnosis associated with the presentation includes (Alcohol use disorder, drug use disorder, hypoglycemia, hyperglycemia, DKA) Admission/Observation Consideration of admission/observation: Escalation of care including admission/observation considered Lab Data [facility] Lab Attestation statement: I reviewed the patient's lab results. 01/24/25 21:23 01/24/25 21:23 Labs: Lab Results 01/24/25 01/24/25 01/24/25 Range/Units 20:56 21:23 22:35 WBC 8.4 (4.8-10.8) X10*3/uL RBC 4.86 (4.60-5.80) X10*6/uL Hgb 13.5 L (14.0-18.0) g/dl Hct 42.1 (42.0-52.0) % MCV 86.6 (80.0-98.0) fL MCH 27.8 (27.0-33.0) pg MCHC 32.1 (31.0-36.0) g/dl RDW 12.9 (11.0-16.0) % Plt Count 244 (160-400) X10*3/uL MPV 11.3 (9.4-12.4) fL Immature Gran % (Auto) 0.4 (0.0-0.4) % Neut % (Auto) 73.8 H (45-73) % Lymph % (Auto) 13.3 L (20-40) % [place] % (Auto) 9.7 (2-11) % Eos % (Auto) 2.3 (0-4) % Baso % (Auto) 0.5 (0-2) % Lymph # (Auto) 1.1 L (1.2-4.9) X10*3/uL [place] # (Auto) 0.8 (0.1-1.2) X10*3/uL Eos # (Auto) 0.2 (0.0-0.4) X10*3/uL Baso # (Auto) 0.0 (0.0-0.2) X10*3/uL Abs Immat Gran (auto) 0.03 (0.00-0.03) X10*3/uL Absolute Neuts (auto) 6.2 (2.0-8.3) x10*3/uL Absolute Nucleated RBC 0.000 (0.0-0.012) X10*3/uL Nucleated RBC % (auto) 0.0 (0.0-0.2) /100WBC Sodium 141 (135-145) mmol/L Potassium 3.4 (3.3-5.1) mmol/L Chloride 107 (96-108) mmol/L Carbon Dioxide 26 (22-29) mmol/L Anion Gap 11 L (12-20) BUN 9 (9-16) mg/dL Creatinine 0.64 (0.5-1.4) mg/dL Estim Creat Clear Calc 142.8 Estimated GFR > 60 POC Glucose 147 H 133 H (60-115) mg/dL Random Glucose 131 H (60-115) mg/dL Calcium 9.2 D (8.4-10.2) mg/dL Total Bilirubin 0.2 (0.0-1.0) mg/dL AST 21 (5-37) U/L ALT 14 (0-40) U/L Alkaline Phosphatase 79 (39-117) U/L Total Protein 7.0 (6.5-8.0) g/dL Albumin 3.9 (3.5-5.0) g/dL Independent Historian Clinical information obtained from an independent historian. History obtained from or confirmed by: EMS Chronic Conditions Patient?s care impacted by: Diabetes Discharge Plan Discharge Clinical Impression: Hypoglycemia Patient Disposition: Home, Self-Care Additional Instructions: your sugars have been good, if your to use insulin you need to eat complex meals which includes protein, carbohydrates, fats and scheduled throughout the day, resume your regular care you told me you do not feel hungry but if you are to give yourself insulin obviously you need to eat Prescriptions: No Action (DME) CeQur Simplicity Interior Design Professor Misc See Rx Instructions .ROUTE .MEDSUPPLY Qty: 1 1RF Rx Instructions: As directed for use with CeQur insulin patch (DME) CeQur Simplicity 2 unit device See Rx Instructions .ROUTE .MEDSUPPLY Qty: 8 11RF Rx Instructions: every 4 days to administer insulin bupropion HCl 150 mg tablet extended release 24 hr 150 mg PO DAILY 90 Days Qty: 90 1RF clonidine 0.1 mg/24 hr Patch Weekly 0.1 mg transdermal Sa@0900 30 Days Qty: 4 0RF Protocol: Hold for SBP< HOLD for SBP < : 90 Treshiba 24 units subcut BEDTIME Qty: 0 0RF sertraline 100 mg tablet 100 mg PO DAILY 30 Days Qty: 30 0RF hydroxyzine HCl 25 mg Tablet 25 mg PO Q6H PRN (Reason: mild anxiety) 30 Days Qty: 60 0RF insulin degludec [Tresiba FlexTouch U-200] 200 unit/mL (3 mL) insulin pen 24 unit SUBCUT BEDTIME insulin lispro 100 unit/mL insulin pen See Protocol SUBCUT TID PRN (Reason: Hyperglycemia) Protocol: Insulin Correction Scale Less than or equal to 110 ---- Give (units): 0 111 to 150 Give (units): 0 151 to 200 Give (units): 2 201 to 250 Give (units): 4 251 to 300 Give (units): 6 301 to 350 Give (units): 8 Greater than 350 Give (units): 10 Call MD if Blood Glucose > : 350 omeprazole 20 mg capsule,delayed release(DR/EC) 20 mg PO DAILY Qty: 90 3RF famotidine [Pepcid] 20 mg tablet 20 mg PO BID 90 Days Qty: 180 2RF benzoyl peroxide 5 % cleanser 1 appl topical BID PRN (Reason: acne) Qty: 227 2RF Print Language: Kyrgyz
[2025-01-24 23:19] VITALS: BP 144/93; PULSE 85; RESP 16; TEMP 36.6; O2SAT 100
[2025-01-25 00:11] LABS: Glucose, Whole Blood 74 mg/dL (60-115)
--- NOTE | 2025-01-25 00:15 | PC.NURSE ---
poc:74 prior to leaving, pt encouraged to eat and drink. Pt verbalized understanding of discharge instructions. took sandwich and chris dayanna, ambulated with steady gait, called for a ride and waiting for transport in waiting room.
[2025-01-25 00:17] VITALS: BP 144/93; PULSE 85; RESP 16; TEMP 36.6; O2SAT 100
== END 2025-01-25 00:10 | disposition home or self-care (01) ==
PROVIDERS: Emergency Provider Emergency Medicine; PCP Internal Medicine
DX: E11.649 Type 2 diabetes mellitus with hypoglycemia without coma (principal); Z79.4 Long term (current) use of insulin
CPT/HCPCS: 36415; 80053; 82947; 85025; 99283; 99284

== ENCOUNTER 2025-01-26 16:19 | Outpatient (AMB) | payer OTHER, SELFPAY ==
--- NOTE | 2025-01-26 16:31 | A.OFFVIS_ITS ---
Intake Intake Visit Reasons: Diabetes regular follow up School Speech Language Pathologist Required: No Accompanied by: Self / Same As Patient Allergies No Known Allergies (No Known Allergies*) Allergy (Verified 01/24/25 21:02) HPI Comprehensive Diabetes Asmnt Most Recent Diabetes Results: Creatinine, (0.5-1.4) 0.64 mg/dL 01/24/25 BUN, (9-16) 9 mg/dL 01/24/25 Sodium, (135-145) 141 mmol/L 01/24/25 Potassium, (3.3-5.1) 3.4 mmol/L 01/24/25 Chloride, (96-108) 107 mmol/L 01/24/25 Carbon Dioxide, (22-29) 26 mmol/L 01/24/25 Calcium, (8.4-10.2) 9.2 mg/dL Δ 01/24/25 AST, (5-37) 21 U/L 01/24/25 ALT, (0-40) 14 U/L 01/24/25 Total Protein, (6.5-8.0) 7.0 g/dL 01/24/25 Albumin, (3.5-5.0) 3.9 g/dL 01/24/25 [facility] Medical History Suicidal ideation Anxiety Suicide attempt Nicotine dependence MDD (major depressive disorder), severe Cocaine use disorder Noncompliance Dental decay Hyperlipidemia LDL goal <100 Surgical History No history of previous surgery Family History Maternal Grandmother Diabetes, type I Social History Household Members: Family Household Members Other:: parents Housing: House Housing Other:: rents a room Do you presently have visiting nurse or other home services: No Alcohol intake: never Comment: 1:1 sitter for SI Patient Tobacco Use Status: Former Tobacco user (09/29/24) Tobacco use type: Cigarette Cigarettes Per Day: 5 e-Cigarette/Vaping Use: Currently Using Second Hand Smoke Exposure: Yes Substance Use Type: Marijuana service: No Current occupational status: employed Sexual orientation: Straight/Heterosexual Cognitive needs: No Hearing needs: No Vision needs: No Assessment & Plan Assessment & Plan (1) Diabetes mellitus type 1, uncontrolled: Comment: since age 10 Code(s): E10.65 - Type 1 diabetes mellitus with hyperglycemia Plan: Patient reported that his Eusebio 3+ reader was broken, he has not been taking his blood glucose. Pt given Eusebio 3+ reader and sample sensor Pt has been using CeQur patch to administer mealtime insulin At today's visit patient asked for prescription for lispro vials, message sent to provider. Patient also reported at today's visit that he has stopped using drugs, he appears to have put on weight. And overall looks healthier. Patient stated at today's visit he may be interested in insulin pump therapy we will dicuss at next visit CGM is the reading of glucose in the interstitial fluid not actual blood glucose, finger sticks are still necessary when Pt's symptom?s do not match sensor reading and if sensors prompts Pt to do a fingerstick Instructed patient sensors water proof you can shower, or swim do not submerge sensor in water for over 30 minutes Is sensor falls off cannot put back in you need to replace sensor, customer service number given to patient for sensor replacement Sensor placed on the back of left arm Patient left visit with sensor in warmup Reviewed how to interpret trend arrows Discussed lag time between finger stick and sensor data.? Instructed patient the importance of having blood glucometer for backup testing if needed Reviewed delay of CGM from fingersticks Reminded Pt that if symptoms do not match sensor still needs to check fingersticks. Portions of this note were created using voice recognition software, please excuse any words or phrases that may have been misinterpreted. Patient instruction: CGM provides information on blood glucose control throughout the day, including hyperglycemia and hypoglycemia. ? Continue to monitor blood glucose as instructed. Follow nutrition guidelines provided. Report any discomfort promptly to health care provider. ?Stay well-hydrated. You can bathe ,shower, swim and exercise while wearing the glucose sensor. Do not submerge glucose sensor in water for more than 30 minutes. Instrucciones para el paciente: CGM proporciona informaci?n sobre el control de la glucosa en [place]ley a lo shanda del d?a, incluidas la hiperglucemia y la hipo glucemia. Contin?e controlando la glucosa en bentley seg?n las instrucciones. Siga las pautas de nutrici?n proporcionadas. Informe cualquier molestia de inmediato al proveedor de atenci?n m?dica. Mantente víctor hidratado. Puede ba?arse, ducharse, nadar y hacer ejercicio mientras usa el sensor de glucosa. No sumerja el sensor de glucosa en agua david m?s de 30 minutos. Retire el sensor para rosalva resonancia magn?estee o rosalva tomograf?a computarizada. Evite la m?quina de jovita X en los aeropuertos: retire el sensor o solicite la varita Coding Level of Care Code Est Pt Level 1 (14718) Diagnoses Diabetes mellitus type 1, uncontrolled E10.65
--- OUTSIDE RECORDS SUMMARY | 2025-01-26 18:56 | XMS_ITS | Clinical Summary ---
[facility] Address [address] [place] [address] Care Team Providers Care Fence Supervisor Name Role Phone Unavailable Primary Care [...]
== END 2025-01-26 16:38 | disposition home or self-care (01) ==
LOC: HO.ENCR 16:20
PROVIDERS: Visit Provider Registered Nurse Diabetes Educator
DX: E10.65 Type 1 diabetes mellitus with hyperglycemia (principal)

== ENCOUNTER → 2025-01-26 16:19 | Outpatient (BNVA) | payer OTHER, SELFPAY | PROVIDERS: Visit Provider Registered Nurse Diabetes Educator | DX: E10.65 Type 1 diabetes mellitus with hyperglycemia (principal) | CPT/HCPCS: 99211 ==

== ENCOUNTER 2025-02-01 14:03 | Emergency (ER) | payer OTHER, SELFPAY ==
[2025-02-01 14:12] VITALS: BP 144/87; BP 169/66; PULSE 103; PULSE 107; RESP 18; TEMP 36.6; O2SAT 100; O2SAT 98; BMI 21.2
--- NOTE | 2025-02-01 14:14 | ED_ITS ---
HPI - General Adult General Chief complaint: Nausea/Vomiting/Diarrhea Stated complaint: nausea/vomiting Related Data Home Medications ?Medication ?Instructions ?Recorded ?Confirmed insulin degludec 200 unit/mL (3 24 unit subcut BEDTIME 10/08/24 02/03/25 mL) subcutaneous pen (Tresiba FlexTouch U-200 insulin) insulin lispro 100 unit/mL See Protocol subcut TID PRN 10/08/24 02/03/25 subcutaneous pen Hyperglycemia Previous Rx's ?Medication ?Instructions ?Recorded CeQur Simplicity 2 unit device #8 ea 09/02/24 (bolus insulin pump, 200 unit) diabetic supplies, miscellan. #1 ea 09/02/24 (CeQur Simplicity Home Fire Alarm Installer) Treshiba 24 units subcut BEDTIME ##0 10/08/24 clonidine 0.1 mg/24 hr weekly 0.1 mg transdermal Sa@09 00 30 days 10/08/24 transdermal patch #4 ea hydroxyzine HCl 25 mg tablet 25 mg PO Q6H PRN mild anx iety 30 10/08/24 days #60 tabs sertraline 100 mg tablet 100 mg PO DAILY 30 days #30 tabs 10/08/24 bupropion HCl 150 mg 24 hr tablet, 150 mg PO DAILY 90 days #90 tabs 11/18/24 extended release benzoyl peroxide 5 % topical 1 appl topical BID PRN ac ne #227 01/05/25 cleanser grams famotidine 20 mg tablet (Pepcid) 20 mg PO BID 90 days #180 tabs 01/05/25 omeprazole 20 mg capsule,delayed 20 mg PO DAILY #90 ca ps 01/05/25 release insulin lispro 100 unit/mL See Rx Instructions subcut TID #20 01/26/25 subcutaneous solution (Humalog mL U-100 Insulin) esomeprazole magnesium 20 mg 20 mg PO DAILY 56 days #5 6 caps 02/02/25 capsule,delayed release metoclopramide HCl 10 mg tablet 10 mg PO Q6H PRN nause a and 02/02/25 (Reglan) vomiting #20 tabs glucagon 3 mg/actuation nasal 3 mg intranasal ONCE #2 ea 02/03/25 spray (Baqsimi) Allergies Allergy/AdvReac Type Severity Reaction Status Date / Time No Known Allergies (No Known Allergy Verified 02/03/25 14:34 Allergies*) [facility] Past Medical History Medical History Suicidal ideation Anxiety Suicide attempt Nicotine dependence MDD (major depressive disorder), severe Cocaine use disorder Noncompliance Dental decay Hyperlipidemia LDL goal <100 Surgical History No history of previous surgery Family History Family History Maternal Grandmother Diabetes, type I Social History Social History Household Members: Family Household Members Other:: parents Housing: House Housing Other:: rents a room Do you presently have visiting nurse or other home services: No Alcohol intake: never Comment: 1:1 sitter for SI Patient Tobacco Use Status: Former Tobacco user (09/29/24) Tobacco use type: Cigarette Cigarettes Per Day: 5 e-Cigarette/Vaping Use: Currently Using Second Hand Smoke Exposure: Yes Substance Use Type: Marijuana service: No Current occupational status: employed Sexual orientation: Straight/Heterosexual Cognitive needs: No Hearing needs: No Vision needs: No Physical Exam ED Vital Signs: BMI result Body Mass Index 21.2 Course Course Course Narrative: This is a rapid medical exam performed by Kinjal Dudley NP: Additional HPI, ROS, PE not included below will be deferred to primary provider. Patient is a 35-year-old male with history of T1 dm, poorly controlled, MDD, cocaine use disorder, nicotine dependence, GERD, cannabis use disorder presenting to the emergency department with complaint of nausea and vomiting for 2 days. Reports his glucometer read 69, read 91 for EMS in route to the ED. Plan: labs, EKG Patient left the emergency department before myself or any of the other clinicians could review or explain physical exam findings, test results, need or lack there of for additional testing, treatment options, or a treatment plan. Medical Decision Making Lab Data 02/01/25 14:37 02/01/25 14:37 Labs: Lab Results 02/01/25 02/01/25 02/01/25 Range/Units 14:28 14:37 14:42 WBC 8.3 (4.8-10.8) X10*3/uL RBC 5.74 (4.60-5.80) X10*6/uL Hgb 16.3 D (14.0-18.0) g/dl Hct 50.4 (42.0-52.0) % MCV 87.8 (80.0-98.0) fL MCH 28.4 (27.0-33.0) pg MCHC 32.3 (31.0-36.0) g/dl RDW 13.4 (11.0-16.0) % Plt Count 268 (160-400) X10*3/uL MPV 10.7 (9.4-12.4) fL Immature Gran % (Auto) 0.4 (0.0-0.4) % Neut % (Auto) 81.5 H (45-73) % Lymph % (Auto) 13.1 L (20-40) % [place] % (Auto) 4.4 (2-11) % Eos % (Auto) 0.1 (0-4) % Baso % (Auto) 0.5 (0-2) % Lymph # (Auto) 1.1 L (1.2-4.9) X10*3/uL [place] # (Auto) 0.4 (0.1-1.2) X10*3/uL Eos # (Auto) 0.0 (0.0-0.4) X10*3/uL Baso # (Auto) 0.0 (0.0-0.2) X10*3/uL Abs Immat Gran (auto) 0.03 (0.00-0.03) X10*3/uL Absolute Neuts (auto) 6.7 (2.0-8.3) x10*3/uL Absolute Nucleated RBC 0.000 (0.0-0.012) X10*3/uL Nucleated RBC % (auto) 0.0 (0.0-0.2) /100WBC VBG pH 7.42 (7.32-7.43) VBG pCO2 36 mmHg VBG pO2 52 mmHg VBG HCO3 24 (22-26) mmol/L VBG O2 Saturation 73.0 % VBG Base Excess 0.1 mmol/L Sodium 142 (135-145) mmol/L Potassium 4.4 D (3.3-5.1) mmol/L Chloride 101 (96-108) mmol/L Carbon Dioxide 27 (22-29) mmol/L Anion Gap 18 (12-20) BUN 19 H (9-16) mg/dL Creatinine 0.80 (0.5-1.4) mg/dL Estim Creat Clear Calc 106.5 Estimated GFR > 60 Random Glucose 86 (60-115) mg/dL Calcium 10.2 D (8.4-10.2) mg/dL Magnesium 2.0 (1.6-2.6) mg/dL Total Bilirubin 0.4 (0.0-1.0) mg/dL AST 26 (5-37) U/L ALT 15 (0-40) U/L Alkaline Phosphatase 96 (39-117) U/L Total Protein 8.6 H (6.5-8.0) g/dL Albumin 4.8 (3.5-5.0) g/dL Beta-Hydroxybutyrate 2.98 H (0.02-0.27) mmol/L Ethyl Alcohol < 10 mg/dL Influenza Type A (PCR) NEGATIVE (Negative) Influenza Type B (PCR) NEGATIVE (Negative) RSV RNA Qual (PCR) NEGATIVE (Negative) SARS-CoV-2 RNA (RT-PCR) NEGATIVE (Negative) Discharge Plan Discharge Clinical Impression: Nausea & vomiting Patient Disposition: Left W/O Completing Treatment Prescriptions: No Action (DME) CeQur Simplicity Home Fire Alarm Installer Misc See Rx Instructions .ROUTE .MEDSUPPLY Qty: 1 1RF Rx Instructions: As directed for use with CeQur insulin patch (DME) CeQur Simplicity 2 unit device See Rx Instructions .ROUTE .MEDSUPPLY Qty: 8 11RF Rx Instructions: every 4 days to administer insulin bupropion HCl 150 mg tablet extended release 24 hr 150 mg PO DAILY 90 Days Qty: 90 1RF insulin lispro [Humalog U-100 Insulin] 100 unit/mL solution See Rx Instructions subcut TID Qty: 20 6RF Rx Instructions: subcutaneously 3 times a day; 60 units daily via insulin patch, clonidine 0.1 mg/24 hr Patch Weekly 0.1 mg transdermal Sa@0900 30 Days Qty: 4 0RF Protocol: Hold for SBP< HOLD for SBP < : 90 Treshiba 24 units subcut BEDTIME Qty: 0 0RF sertraline 100 mg tablet 100 mg PO DAILY 30 Days Qty: 30 0RF hydroxyzine HCl 25 mg Tablet 25 mg PO Q6H PRN (Reason: mild anxiety) 30 Days Qty: 60 0RF insulin degludec [Tresiba FlexTouch U-200] 200 unit/mL (3 mL) insulin pen 24 unit SUBCUT BEDTIME insulin lispro 100 unit/mL insulin pen See Protocol SUBCUT TID PRN (Reason: Hyperglycemia) Protocol: Insulin Correction Scale Less than or equal to 110 ---- Give (units): 0 111 to 150 Give (units): 0 151 to 200 Give (units): 2 201 to 250 Give (units): 4 251 to 300 Give (units): 6 301 to 350 Give (units): 8 Greater than 350 Give (units): 10 Call MD if Blood Glucose > : 350 esomeprazole magnesium 20 mg capsule,delayed release(DR/EC) 20 mg PO DAILY 56 Days Qty: 56 0RF metoclopramide HCl [Reglan] 10 mg tablet 10 mg PO Q6H PRN (Reason: nausea and vomiting) Qty: 20 0RF omeprazole 20 mg capsule,delayed release(DR/EC) 20 mg PO DAILY Qty: 90 3RF famotidine [Pepcid] 20 mg tablet 20 mg PO BID 90 Days Qty: 180 2RF benzoyl peroxide 5 % cleanser 1 appl topical BID PRN (Reason: acne) Qty: 227 2RF Baqsimi 3 mg/actuation spray,non-aerosol 3 mg intranasal ONCE Qty: 2 0RF Discharge Date/Time: 02/01/25 19:35
--- NOTE | 2025-02-01 14:15 | ECG_ITS ---
Test Reason : VOMITTING Blood Pressure : */* mmHG Vent. Rate : 107 BPM Atrial Rate : 107 BPM P-R Int : 188 ms QRS Dur : 84 ms QT Int : 332 ms P-R-T Axes : 72 79 63 degrees QTcB Int : 443 ms Sinus tachycardia Otherwise normal ECG When compared with ECG of 30-Sep-2024 21:06, QT has lengthened Referred By: Rachel Dudley Electronically Signed By: RAMIRO WEST MD
[2025-02-01 14:44] LABS: MANUAL DIFF FLAG NO
[2025-02-01 14:45] LABS: Hematocrit 50.4 % (42.0-52.0); Hemoglobin 16.3 g/dl (14.0-18.0); Imm Gran Abs Auto 0.03 X10*3/uL (0.00-0.03); Imm Gran Pct Auto 0.4 % (0.0-0.4); Lymphocytes Absolute Auto 1.1 X10*3/uL (1.2-4.9); Mean Corpuscular HGB Conc 32.3 g/dl (31.0-36.0); Mean Corpuscular Hemoglobin 28.4 pg (27.0-33.0); Mean Corpuscular Volume 87.8 fL (80.0-98.0); NRBC Abs Auto 0.000 X10*3/uL (0.0-0.012); NRBC Pct Auto 0.0 /100WBC (0.0-0.2); Platelet Count 268 X10*3/uL (160-400); Red Blood Count 5.74 X10*6/uL (4.60-5.80); White Blood Count 8.3 X10*3/uL (4.8-10.8)
[2025-02-01 14:47] LABS: VBG HCO3 24 mmol/L (22-26); VBG O2 % Saturation 73.0 %
[2025-02-01 14:48] LABS: Venous Blood Gas Refer to POC result
[2025-02-01 14:59] LABS: Alanine Aminotransferase 15 U/L (0-40); Albumin Level 4.8 g/dL (3.5-5.0); Alkaline Phosphatase 96 U/L (39-117); Anion Gap 18 (12-20); Aspartate Amino Transferase 26 U/L (5-37); Blood Urea Nitrogen 19 mg/dL (9-16); Calcium 10.2 mg/dL (8.4-10.2); Carbon Dioxide 27 mmol/L (22-29); Chloride 101 mmol/L (96-108); Creatinine Clr Calc Pharmacy 106.5; Estimated Glomerular Filt Rate > 60; Magnesium 2.0 mg/dL (1.6-2.6); Potassium 4.4 mmol/L (3.3-5.1); Sodium 142 mmol/L (135-145); Total Protein 8.6 g/dL (6.5-8.0)
[2025-02-01 15:20] LABS: Resp Syncy Virus RNA Qual PCR NEGATIVE (Negative); SARS COV2 PCR INHOUSE NEGATIVE (Negative)
== END 2025-02-01 19:35 | disposition left against medical advice (07) ==
PROVIDERS: Registered Nurse Emergency; Emergency Provider Emergency Medicine; PCP Internal Medicine
DX: R11.2 Nausea with vomiting, unspecified (principal); R19.7 Diarrhea, unspecified; R00.0 Tachycardia, unspecified; Z03.818 Encounter for observation for suspected exposure to other biological agents ruled out; E78.5 Hyperlipidemia, unspecified; Z87.891 Personal history of nicotine dependence
CPT/HCPCS: 36415; 80053; 80307; 82010; 82803; 83735; 85025; 87637; 93005; 99283

== ENCOUNTER → 2025-02-01 14:15 | Outpatient (BNV) | payer OTHER, SELFPAY | PROVIDERS: Visit Provider Internal Medicine Cardiovascular Disease | DX: R00.0 Tachycardia, unspecified (principal) | CPT/HCPCS: 93010 ==

== ENCOUNTER 2025-02-01 22:49 | Emergency (ER) | payer OTHER, SELFPAY ==
[2025-02-01 22:58] VITALS: BP 149/83; BP 154/98; PULSE 96; PULSE 99; RESP 16; TEMP 36.7; O2SAT 100; O2SAT 99; BMI 22.6
[2025-02-01 23:01] VITALS: BP 149/83; PULSE 99; RESP 16; TEMP 36.7; O2SAT 100
[2025-02-01 23:18] LABS: MANUAL DIFF FLAG NO
[2025-02-01 23:20] LABS: Hematocrit 47.6 % (42.0-52.0); Hemoglobin 15.7 g/dl (14.0-18.0); Imm Gran Abs Auto 0.05 X10*3/uL (0.00-0.03); Imm Gran Pct Auto 0.6 % (0.0-0.4); Lymphocytes Absolute Auto 1.3 X10*3/uL (1.2-4.9); Mean Corpuscular HGB Conc 33.0 g/dl (31.0-36.0); Mean Corpuscular Hemoglobin 28.0 pg (27.0-33.0); Mean Corpuscular Volume 85.0 fL (80.0-98.0); NRBC Abs Auto 0.000 X10*3/uL (0.0-0.012); NRBC Pct Auto 0.0 /100WBC (0.0-0.2); Platelet Count 320 X10*3/uL (160-400); Red Blood Count 5.60 X10*6/uL (4.60-5.80); White Blood Count 9.0 X10*3/uL (4.8-10.8)
[2025-02-01 23:38] LABS: Alanine Aminotransferase 12 U/L (0-40); Albumin Level 4.6 g/dL (3.5-5.0); Alkaline Phosphatase 95 U/L (39-117); Anion Gap 17 (12-20); Aspartate Amino Transferase 23 U/L (5-37); Blood Urea Nitrogen 21 mg/dL (9-16); Calcium 10.1 mg/dL (8.4-10.2); Carbon Dioxide 24 mmol/L (22-29); Chloride 100 mmol/L (96-108); Creatinine Clr Calc Pharmacy 106.5; Estimated Glomerular Filt Rate > 60; Lipase 10 U/L (8-78); Magnesium 2.0 mg/dL (1.6-2.6); Potassium 4.3 mmol/L (3.3-5.1); Sodium 137 mmol/L (135-145); Total Protein 8.2 g/dL (6.5-8.0)
--- NOTE | 2025-02-01 23:49 | ED_ITS ---
HPI - Nausea/Vomiting/Diarrhea General Chief complaint: Nausea/Vomiting/Diarrhea Stated complaint: n/v weakness Bp 154/98 BGL 196 Time Seen by Provider: 02/01/25 23:48 Source: patient and EMS Mode of arrival: EMS Limitations: no limitations History of Present Illness ED Provider: Dr. Olimpia Dill HPI Narrative: 35-year-old male with a history of insulin-dependent diabetes, cannabis use disorder, polysubstance use disorder presenting with epigastric abdominal pain and vomiting that began earlier today. No reported fever. Unable to tolerate anything in the last 24 hours. Blood sugars are running somewhat high. Denies diarrhea, urinary complaints, chest pain, difficulty breathing. Denies sick contacts or travel. No questionable food intake. States he feels fatigued after vomiting so much today. As nothing at home for nausea. Blood sugars are running on the high side. This has been an ongoing issue for him. Related Data Home Medications ?Medication ?Instructions ?Recorded ?Confirmed insulin degludec 200 unit/mL (3 24 unit subcut BEDTIME 10/08/24 02/03/25 mL) subcutaneous pen (Tresiba FlexTouch U-200 insulin) insulin lispro 100 unit/mL See Protocol subcut TID PRN 10/08/24 02/03/25 subcutaneous pen Hyperglycemia Previous Rx's ?Medication ?Instructions ?Recorded Ce[employer]ur Simplicity 2 unit device #8 ea 09/02/24 (bolus insulin pump, 200 unit) diabetic supplies, miscellan. #1 ea 09/02/24 (Ce[employer]ur Simplicity Green Building Engineer) Treshiba 24 units subcut BEDTIME ##0 10/08/24 clonidine 0.1 mg/24 hr weekly 0.1 mg transdermal Sa@09 00 30 days 10/08/24 transdermal patch #4 ea hydroxyzine HCl 25 mg tablet 25 mg PO Q6H PRN mild anx iety 30 10/08/24 days #60 tabs sertraline 100 mg tablet 100 mg PO DAILY 30 days #30 tabs 10/08/24 bupropion HCl 150 mg 24 hr tablet, 150 mg PO DAILY 90 days #90 tabs 11/18/24 extended release benzoyl peroxide 5 % topical 1 appl topical BID PRN ac ne #227 01/05/25 cleanser grams famotidine 20 mg tablet (Pepcid) 20 mg PO BID 90 days #180 tabs 01/05/25 omeprazole 20 mg capsule,delayed 20 mg PO DAILY #90 ca ps 01/05/25 release insulin lispro 100 unit/mL See Rx Instructions subcut TID #20 01/26/25 subcutaneous solution (Humalog mL U-100 Insulin) esomeprazole magnesium 20 mg 20 mg PO DAILY 56 days #5 6 caps 02/02/25 capsule,delayed release metoclopramide HCl 10 mg tablet 10 mg PO Q6H PRN nause a and 02/02/25 (Reglan) vomiting #20 tabs glucagon 3 mg/actuation nasal 3 mg intranasal ONCE #2 ea 02/03/25 spray (Baqsimi) Allergies Allergy/AdvReac Type Severity Reaction Status Date / Time No Known Allergies (No Known Allergy Verified 02/03/25 14:34 Allergies*) Review of Systems 2 Review of Systems: As per HPI, full review of systems performed and negative but for the above mentioned pertinent positives and negatives. [facility] Past Medical History Medical History Suicidal ideation Anxiety Suicide attempt Nicotine dependence MDD (major depressive disorder), severe Cocaine use disorder Noncompliance Dental decay Hyperlipidemia LDL goal <100 Surgical History No history of previous surgery Family History Family History Maternal Grandmother Diabetes, type I Social History Social History Household Members: Family Household Members Other:: parents Housing: House Housing Other:: rents a room Do you presently have visiting nurse or other home services: No Alcohol intake: never Comment: 1:1 sitter for SI Patient Tobacco Use Status: Former Tobacco user (09/29/24) Tobacco use type: Cigarette Cigarettes Per Day: 5 e-Cigarette/Vaping Use: Currently Using Second Hand Smoke Exposure: Yes Substance Use Type: Marijuana service: No Current occupational status: employed Sexual orientation: Straight/Heterosexual Cognitive needs: No Hearing needs: No Vision needs: No Physical Exam 2 Exam: Exam: GENERAL: Ill-Appearing, appears uncomfortable. SKIN: Normal skin color for ethnicity, warm, dry, no rashes noted. HEENT: Normocephalic, atraumatic, no stridor, dry mucous membranes, dentition intact, EOMI, PERRLA. NECK: Soft, supple, full ROM, midline structures nontender, no step-offs, no deformities, no lymphadenopathy. CHEST: Heart regular tachycardia, no murmurs, symmetric chest rise and fall. PULMONARY: Clear to auscultation bilaterally, diminished at the bases, no labored breathing, no wheezes/rhales/rhonchi. ABDOMINAL: Soft, nondistended, nontender, positive bowel sounds in all quadrants. : Deferred. MUSCULOSKELETAL: Normal tone, full range of motion, no deformities, no peripheral edema. NEURO: Alert and oriented x3, CN II through XII intact, equal strength and sensation bilateral upper and lower extremities, no focal neurologic deficits. PSYCHIATRIC: Flat affect, fluid speech, good eye contact and appropriate demeanor. Vital Signs: Vital Signs: Last Vital Signs Temp 98.2 F 02/02/25 02:46 Pulse 95 02/02/25 02:46 Resp 16 02/02/25 02:46 BP 129/74 02/02/25 02:46 Pulse Ox 100 02/02/25 02:46 O2 Del Method Room Air 02/02/25 02:46 BMI result Body Mass Index 22.6 Medications Administered Discontinued Medications Generic Name Dose Route Start Last Admin Trade Name Freq PRN Reason Stop Dose Admin Famotidine 20 mg 02/01/25 23:49 02/02/25 00:02 Famotidine/Pf 20 Mg/2 Ml Vial IVPUSH 02/01/25 23:50 20 mg ONCE ONE Administration Lactated Ringer's 1,000 mls @ 999 mls/hr 02/01/25 23:49 02/02/25 01:11 Lr IV 02/02/25 00:49 Infused .Q1H1M ONE Infusion Ondansetron HCl 4 mg 02/01/25 23:49 02/02/25 00:02 Ondansetron Hcl 4 Mg/2 Ml Vial IVPUSH 02/01/25 23:50 4 mg ONCE ONE Administration Medical Decision Making Medical Decision Making [facility] Narrative: Patient presents today with a chief complaint of vomiting. Differential diagnosis includes surgical emergency such as obstruction or enteritis, as well as hyperglycemia, acidosis, food or drug ingestion, pancreatitis, CVA, allergic reaction such as anaphylaxis, cannabis hyperemesis syndrome or cyclic vomiting syndrome, among many others. Patient is not showing signs of acute dehydration or hemodynamic instability. They are having associated abdominal pain. Broad-based work-up was initiated based on above history and physical exam. Workup is reassuring. Suspect gastroparesis in the setting of insulin-dependent diabetes as well as some gastritis. He is hemodynamically stable, resting comfortably after treatment. Discussed importance of follow up, keeping his blood sugars under control as well as strict return precautions. He understands and agrees with plan for discharge. Discharged home in stable condition. Differential Diagnosis Differential Diagnoses: The differential diagnosis associated with the presentation includes (As above) Admission/Observation Consideration of admission/observation: Escalation of care including admission/observation considered Lab Data MDM Lab Attestation statement: I reviewed the patient's lab results. 02/01/25 23:13 02/01/25 23:13 Labs: Lab Results 02/01/25 02/02/25 Range/Units 23:13 00:00 WBC 9.0 (4.8-10.8) X10*3/uL RBC 5.60 (4.60-5.80) X10*6/uL Hgb 15.7 (14.0-18.0) g/dl Hct 47.6 (42.0-52.0) % MCV 85.0 (80.0-98.0) fL MCH 28.0 (27.0-33.0) pg MCHC 33.0 (31.0-36.0) g/dl RDW 13.1 (11.0-16.0) % Plt Count 320 (160-400) X10*3/uL MPV 10.8 (9.4-12.4) fL Immature Gran % (Auto) 0.6 H (0.0-0.4) % Neut % (Auto) 77.4 H (45-73) % Lymph % (Auto) 14.4 L (20-40) % [place] % (Auto) 7.0 (2-11) % Eos % (Auto) 0.2 (0-4) % Baso % (Auto) 0.4 (0-2) % Lymph # (Auto) 1.3 (1.2-4.9) X10*3/uL [place] # (Auto) 0.6 (0.1-1.2) X10*3/uL Eos # (Auto) 0.0 (0.0-0.4) X10*3/uL Baso # (Auto) 0.0 (0.0-0.2) X10*3/uL Abs Immat Gran (auto) 0.05 H (0.00-0.03) X10*3/uL Absolute Neuts (auto) 7.0 (2.0-8.3) x10*3/uL Absolute Nucleated RBC 0.000 (0.0-0.012) X10*3/uL Nucleated RBC % (auto) 0.0 (0.0-0.2) /100WBC Sodium 137 (135-145) mmol/L Potassium 4.3 (3.3-5.1) mmol/L Chloride 100 (96-108) mmol/L Carbon Dioxide 24 (22-29) mmol/L Anion Gap 17 (12-20) BUN 21 H (9-16) mg/dL Creatinine 0.85 (0.5-1.4) mg/dL Estim Creat Clear Calc 106.5 Estimated GFR > 60 Random Glucose 199 H (60-115) mg/dL Calcium 10.1 (8.4-10.2) mg/dL Magnesium 2.0 (1.6-2.6) mg/dL Total Bilirubin 0.5 (0.0-1.0) mg/dL AST 23 (5-37) U/L ALT 12 (0-40) U/L Alkaline Phosphatase 95 (39-117) U/L Total Protein 8.2 H (6.5-8.0) g/dL Albumin 4.6 (3.5-5.0) g/dL Lipase 10 (8-78) U/L Urine Color Yellow Urine Appearance Clear Urine pH 6.0 (5.0-9.0) Ur Specific [place] >= 1.030 H (1.005-1.025) Urine Protein Trace (Neg-Trace) mg/dL Urine Glucose (UA) 250 H (Negative) mg/dL Urine Ketones 80 (Negative) mg/dL Urine Blood Negative (Negative) Urine Nitrite Negative (Negative) Ur Leukocyte Esterase Negative (Negative) External Record Review External record reviewed: Inpatient record and Outpatient record Prescription Management I considered prescription management with: Other (Antiemetics) Chronic Conditions Patient?s care impacted by: Diabetes Social Determinants Patient?s care significantly limited by Social Determinants of Health including: Alcoholism and drug addiction in family, Problems related to primary support group, Problems related to employment and Other Social Determinant of Health Discharge Plan Discharge Clinical Impression: Diabetic gastroparesis, Gastritis, Nausea and vomiting, Dehydration Patient Disposition: Home, Self-Care Instructions: Gastritis (ED), Gastroparesis (ED) Additional Instructions: DIAGNOSIS & TREATMENT: You were seen in the Emergency Department for your abdominal pain. We performed laboratory work which did not reveal any acute abnormalities that would explain your symptoms. More than likely this is related to your diabetes and slow emptying of your gut as well as mild gastritis (inflammation of the lining of the stomach). FURTHER CARE: We have not found any emergent physical exam or lab abnormalities that would require admission to the hospital today. Many people who come to the ER with abdominal pain do not leave with a specific diagnosis at the end of their visit. In the Emergency Department we try to make sure that there is no emergent problem that needs surgery or antibiotics right now. This does not mean that your evaluation is complete--please be sure to follow up with your regular doctor as additional testing as an outpatient may be indicated Please be certain to drink plenty of fluids over the next several. You should advance your diet as tolerated. You may wish to start with the BRAT diet (bananas, rice, applesauce, toast). Take Reglan for nausea. Use esomeprazole daily for reduced stomach acid production. WHEN YOU SHOULD BE SEEN NEXT: Please follow-up with your primary care provider within the next 2-3 days for reevaluation of your symptoms. Keep your appointment in April with the mining plant operator. WHEN TO RETURN TO THE ED: Monitor your symptoms closely and return to the emergency department immediately for any new/worsening symptoms, worsening abdominal pain, pain which changes location (particularly if it moved to the right lower quadrant), nausea, vomiting, blood in your stool, black/tarry stools, chest pain, shortness of breath, fevers, chills, night sweats, you are unable to arrange follow-up care, or any other concerning symptoms. Prescriptions: New esomeprazole magnesium 20 mg capsule,delayed release(DR/EC) 20 mg PO DAILY 56 Days Qty: 56 0RF metoclopramide HCl [Reglan] 10 mg tablet 10 mg PO Q6H PRN (Reason: nausea and vomiting) Qty: 20 0RF No Action (DME) Ce[employer]ur Simplicity Green Building Engineer Misc See Rx Instructions .ROUTE .MEDSUPPLY Qty: 1 1RF Rx Instructions: As directed for use with CeQur insulin patch (DME) CeQur Simplicity 2 unit device See Rx Instructions .ROUTE .MEDSUPPLY Qty: 8 11RF Rx Instructions: every 4 days to administer insulin bupropion HCl 150 mg tablet extended release 24 hr 150 mg PO DAILY 90 Days Qty: 90 1RF insulin lispro [Humalog U-100 Insulin] 100 unit/mL solution See Rx Instructions subcut TID Qty: 20 6RF Rx Instructions: subcutaneously 3 times a day; 60 units daily via insulin patch, clonidine 0.1 mg/24 hr Patch Weekly 0.1 mg transdermal Sa@0900 30 Days Qty: 4 0RF Protocol: Hold for SBP< HOLD for SBP < : 90 Treshiba 24 units subcut BEDTIME Qty: 0 0RF sertraline 100 mg tablet 100 mg PO DAILY 30 Days Qty: 30 0RF hydroxyzine HCl 25 mg Tablet 25 mg PO Q6H PRN (Reason: mild anxiety) 30 Days Qty: 60 0RF insulin degludec [Tresiba FlexTouch U-200] 200 unit/mL (3 mL) insulin pen 24 unit SUBCUT BEDTIME insulin lispro 100 unit/mL insulin pen See Protocol SUBCUT TID PRN (Reason: Hyperglycemia) Protocol: Insulin Correction Scale Less than or equal to 110 ---- Give (units): 0 111 to 150 Give (units): 0 151 to 200 Give (units): 2 201 to 250 Give (units): 4 251 to 300 Give (units): 6 301 to 350 Give (units): 8 Greater than 350 Give (units): 10 Call MD if Blood Glucose > : 350 omeprazole 20 mg capsule,delayed release(DR/EC) 20 mg PO DAILY Qty: 90 3RF famotidine [Pepcid] 20 mg tablet 20 mg PO BID 90 Days Qty: 180 2RF benzoyl peroxide 5 % cleanser 1 appl topical BID PRN (Reason: acne) Qty: 227 2RF Baqsimi 3 mg/actuation spray,non-aerosol 3 mg intranasal ONCE Qty: 2 0RF Interventions: ED Discharge Assessment Last Done: 02/02/25 02:46 Discharge Date/Time: 02/02/25 02:59 Print Language: Irish
[2025-02-02] MEDS: Lactated Ringers 1,000 ML 999 ML IV (00:06)
[2025-02-02 00:12] LABS: Appearance Urine Clear; Glucose Urine UA 250 mg/dL (Negative); PH 6.0 (5.0-9.0); Specific Gravity - Urine >= 1.030 (1.005-1.025)
[2025-02-02 02:05] VITALS: BP 129/74; PULSE 95; TEMP 36.8; O2SAT 100
[2025-02-02 02:46] VITALS: BP 129/74; PULSE 95; RESP 16; TEMP 36.8; O2SAT 100
== END 2025-02-02 02:59 | disposition home or self-care (01) ==
PROVIDERS: Emergency Provider Emergency Medicine
DX: E11.43 Type 2 diabetes mellitus with diabetic autonomic (poly)neuropathy (principal); K31.84 Gastroparesis; K29.70 Gastritis, unspecified, without bleeding; E86.0 Dehydration; R11.2 Nausea with vomiting, unspecified; Z79.4 Long term (current) use of insulin
CPT/HCPCS: 36415; 80053; 81003; 83690; 83735; 85025; 96361; 96374; 96375; 99284; J1308; J2405; J7120

== ENCOUNTER 2025-02-03 14:23 | Outpatient (AMB) | payer OTHER, SELFPAY ==
--- NOTE | 2025-02-03 14:26 | A.OFFVIS_ITS ---
Vital Signs 02/03/25 14:29 Height 5 ft 5 in Weight 132 lb 4.438 oz BMI 22.0 BP 128/76 Blood Pressure Location Rt brachial Position Sitting Pulse 105 H Pulse Source Pulse Oximeter Pulse Oximetry (%) 98 Oxygen Delivery Method Room Air Intake Visit Reasons: T1DM Intake Note: Patient present for follow up on T1DM Last diabetic eye exam: years ago, will need a new referral Does not see a sandwich board carrier. Random glucose:248 HbA1C: 7.1 Publications Sales Representative Required: No Accompanied by: Self / Same As Patient Allergies No Known Allergies (No Known Allergies*) Allergy (Verified 02/03/25 14:34) Medication List - Last Reconciled 02/03/25 by Luis Baugh MD benzoyl peroxide 5% 1 appl topical BID PRN bupropion HCl XL 150 mg PO DAILY 90 days CeQur Simplicity (bolus insulin pump, 200 unit) every 4 days to administer insulin NS clonidine 0.1 mg See Protocol transdermal Sa@0900 30 days diabetic supplies, miscellan. (CeQur Simplicity Magnetic Resonance Technologist) As directed for use with CeQur insulin patch esomeprazole magnesium 20 mg PO DAILY 56 days famotidine (Pepcid) 20 mg PO BID 90 days hydroxyzine HCl 25 mg PO Q6H PRN 30 days insulin degludec (Tresiba FlexTouch U-200 insulin) 24 units subcut BEDTIME insulin lispro See Protocol sliding scale doses subcut TID PRN insulin lispro (Humalog U-100 Insulin) subcutaneously 3 times a day; 60 units daily via insulin patch, metoclopramide HCl (Reglan) 10 mg PO Q6H PRN omeprazole 20 mg PO DAILY sertraline 100 mg PO DAILY 30 days [Treshiba 24 multiple units subcut BEDTIME] HPI Comments Details: Patient is 35 yo male with DM type 1 diagnosed at age 10 who presents for management of diabetes. He was last seen 09/29/24 by Sunita Jason NP He has had a severe hypoglycemic episode after he tried to commit suicide by insulin injection in the past Diabetes medications: Tresiba 24 units Lispro t.i.d. before meals 1-7 clicks on CeQur A sensor download Eusebio shows he is using the sensor 57% of the time. Average glucose is 135 with G mi of 6.5% and variability 45.2% per 55% range with 24% hyperglycemia and 19% hypoglycemia. The hypoglycemia is occurring throughout the day. The hypoglycemia is occurring throughout the day with greatest severity occur in the afternoon He denies alcohol use. Uses cannibis. No street drugs. Has neuropathy was advised to restart gabapentin by his PCP Symptoms: Cramping in feet, numbness which he feels is better when his sugars are in normal range Hypoglycemia:0cc: does not always feel it Eye exam: needs to make appt No Nephropathy: 10/14/2023 albumin less than 5.0 09/07/2023 eGFR>60 Exercise: little He smokes 3 cigarettes per day and does vape does not carry sugar source despite recommendation He was on an insulin pump in his teen years. He has been on a VGo insulin mechanical patch in the past He was unable to tolerate atorvastin side effect: diarrhea PFSH Medical History Suicidal ideation Anxiety Suicide attempt Nicotine dependence MDD (major depressive disorder), severe Cocaine use disorder Noncompliance Dental decay Hyperlipidemia LDL goal <100 Surgical History No history of previous surgery Family History Maternal Grandmother Diabetes, type I Social History Household Members: Family Household Members Other:: parents Housing: House Housing Other:: rents a room Do you presently have visiting nurse or other home services: No Alcohol intake: never Comment: 1:1 sitter for SI Patient Tobacco Use Status: Former Tobacco user (09/29/24) Tobacco use type: Cigarette Cigarettes Per Day: 5 e-Cigarette/Vaping Use: Currently Using Second Hand Smoke Exposure: Yes Substance Use Type: Marijuana service: No Current occupational status: employed Sexual orientation: Straight/Heterosexual Cognitive needs: No Hearing needs: No Vision needs: No Physical Exam Vital Signs: Last Vital Signs Pulse 105 H 02/03/25 14:29 BP 128/76 02/03/25 14:29 Pulse Ox 98 02/03/25 14:29 Oxygen Delivery Method Room Air 02/03/25 14:29 BMI result Body Mass Index 22.0 Absence of Cushingoid features. Absence of acromegalic features. Neck exam reveals nl size thyroid about 15 gms. No thyroid nodules palpable. No carotid bruits present. Lungs CTA. Heart S1 S2, Reg R/R. No M/R/ G. Skin exam reveals absence of vitiligo or acanthosis nigricans. Abdominal exam reveals Soft NT/ND with NA BS. No organomegaly present. Neck Other: . Extrem Other: Visual exam of foot performed. No ulcerations or open lesions. No onchomycosis, no callouses.Pulses 2 + distally Sensation intact to monofilament exam. Vibratory sensation sensed is intact with 128 Hz tuning fork Results AMB Hemoglobin A1c AMB Hemoglobin A1c 7.1 % Last Edit by Jennifer Starkey CMA on 02/03/25 14:54 Results Reviewed Results Reviewed: Laboratory Last Values Glucose (Clinic) 248 mg/dL (60-115) H 02/03/25 14:42 Assessment & Plan Assessment & Plan (1) Diabetes mellitus type 1, uncontrolled: Comment: since age 10 Code(s): E10.65 - Type 1 diabetes mellitus with hyperglycemia Category: Medical Plan: This is a 33-year-old male with a history of longstanding type 1 diabetes currently being treated with basal-bolus insulin with excellent improv ed glycemic control and no known microvascular or macrovascular complications. He has significant hypoglycemia throughout the day Plan is to decrease the Tresiba to 20 years . May also need to decrease the prandial insulin by 1-2 clicks if continued hypoglycemia Patient is a follow up appointment with the prop cutter he is considering going an insulin pump i and I would encourage him to do so. We will check lipid profile microalbumin to creatinine ratio Orders: Orders Lipid Panel Today E10.65 - Type 1 diabetes mellitus with hyperglycemia Microalbumin, Random (w Creat) Today E10.65 - Type 1 diabetes mellitus with hyperglycemia AMB Hemoglobin A1c Today E10.65 - Type 1 diabetes mellitus with hyperglycemia Medications: New glucagon 3 mg/actuation (Baqsimi) 3 mg intranasal ONCE 2 ea 0RF Coding Level of Care Code Est Pt Level 4 (67413) Complex EM visit Add On G2211 Diagnoses Diabetes mellitus type 1, uncontrolled E10.65
[2025-02-03 14:29] VITALS: BP 128/76; PULSE 105; O2SAT 98; BMI 22.0
[2025-02-03 14:48] LABS: Glucose, Whole Blood 248 mg/dL (60-115)
--- OUTSIDE RECORDS SUMMARY | 2025-02-03 17:50 | XMS_ITS | Clinical Summary ---
[facility] Address [address] [place] [address] Care Team Providers Care Montessori Teacher Name Role Phone Unavailable Primary Care Provider [...] Depression Screening 03/24/2024 COVID-19 Vaccine (1 - 2024-2 6 season) 2024 Influenza Vaccine (#1) 2024 RSV [...]
== END 2025-02-03 14:55 | disposition home or self-care (01) ==
LOC: HO.ENCR 14:23
PROVIDERS: Visit Provider Internal Medicine Endocrinology, Diabetes & Metabolism
DX: E10.65 Type 1 diabetes mellitus with hyperglycemia (principal)
CPT/HCPCS: 99214

== ENCOUNTER → 2025-02-03 14:23 | Outpatient (BNVA) | payer OTHER, SELFPAY | PROVIDERS: Visit Provider Internal Medicine Endocrinology, Diabetes & Metabolism | DX: E10.65 Type 1 diabetes mellitus with hyperglycemia (principal) | CPT/HCPCS: 82947; 83036; 99212 ==

== ENCOUNTER 2025-02-07 10:18 | Outpatient (REF) | payer OTHER, SELFPAY ==
[2025-02-07 11:33] LABS: Cholesterol 223 mg/dL (<200); HDL Cholesterol 42 mg/dL (>40); Triglycerides 297 mg/dL (<150)
[2025-02-07 12:26] LABS: Microalbum/Creatinine Ratio Ur 8.5 ug/mg cr (<30)
== END 2025-02-07 10:19 | disposition home or self-care (01) ==
LOC: HO.LAB 10:18
PROVIDERS: Visit Provider Internal Medicine Endocrinology, Diabetes & Metabolism
DX: E10.65 Type 1 diabetes mellitus with hyperglycemia (principal)
CPT/HCPCS: 36415; 80061; 82043; 82570

== ENCOUNTER 2025-02-21 16:13 | Outpatient (AMB) | payer OTHER, SELFPAY ==
--- NOTE | 2025-02-21 16:15 | A.OFFVIS_ITS ---
Intake Vital Signs 3 02/21/25 16:42 Weight 143 lb 4 oz Intake Visit Reasons: 60 mins Public Aid Eligibility Assistant Required: No Accompanied by: Self / Same As Patient Allergies No Known Allergies (No Known Allergies*) Allergy (Verified 02/03/25 14:34) HPI Comprehensive Diabetes Asmnt Most Recent Diabetes Results: 2 Microalb/Creat Ratio, (<30) 8.5 ug/mg cr 02/07/25 Cholesterol, (<200) 223 mg/dL H 02/07/25 HDL Cholesterol, (>40) 42 mg/dL 02/07/25 Triglycerides, (<150) 297 mg/dL H 02/07/25 Creatinine, (0.5-1.4) 0.85 mg/dL 02/01/25 BUN, (9-16) 21 mg/dL H 02/01/25 Sodium, (135-145) 137 mmol/L 02/01/25 Potassium, (3.3-5.1) 4.3 mmol/L 02/01/25 Chloride, (96-108) 100 mmol/L 02/01/25 Carbon Dioxide, (22-29) 24 mmol/L 02/01/25 Calcium, (8.4-10.2) 10.1 mg/dL 02/01/25 AST, (5-37) 23 U/L 02/01/25 ALT, (0-40) 12 U/L 02/01/25 Total Protein, (6.5-8.0) 8.2 g/dL H 02/01/25 Albumin, (3.5-5.0) 4.6 g/dL 02/01/25 [facility] Medical History Suicidal ideation Anxiety Suicide attempt Nicotine dependence MDD (major depressive disorder), severe Cocaine use disorder Noncompliance Dental decay Hyperlipidemia LDL goal <100 Surgical History No history of previous surgery Family History Maternal Grandmother Diabetes, type I Social History Household Members: Family Household Members Other:: parents Housing: House Housing Other:: rents a room Do you presently have visiting nurse or other home services: No Alcohol intake: never Comment: 1:1 sitter for SI Patient Tobacco Use Status: Former Tobacco user (09/29/24) Tobacco use type: Cigarette Cigarettes Per Day: 5 e-Cigarette/Vaping Use: Currently Using Second Hand Smoke Exposure: Yes Substance Use Type: Marijuana service: No Current occupational status: employed Sexual orientation: Straight/Heterosexual Cognitive needs: No Hearing needs: No Vision needs: No Assessment & Plan Assessment & Plan (1) Diabetes mellitus type 1, uncontrolled: Comment: since age 10 Code(s): E10.65 - Type 1 diabetes mellitus with hyperglycemia Plan: Pump Assessment: Type of DM: type 1 Dx at age: 10 y/o Previous DKA: yes Current Insulin Rx: CeQue insulin patch Patient takes insulin as prescribed: yes Patient? checks BG Eusebio 3+ Downloaded meter today Patient? reports glycemic control as: fair Most recent Hgb A1C: 7.1% 01/2025 Frequency of low BG: Daily Low BG treatment: Juice or glucose tabs Frequency of high BG: Several times a week Does patient check Ketones? Yes Has pt been on a pump in the past? Yes, Omnipod Patient is currently experiencing high percentage of hypoglycemia. Reports he is currently taking Tresiba 24 units daily, and Humalog sliding scale At today's visit we reduce Tresiba to 16 units daily, patient will follow-up in 2 weeks for blood glucose review At that visit patient will bring scale, adjustments will be made if necessary to prevent hypoglycemia Patient reports he has Baqsimi at home and his mother has been trained how to use Baqsimi in case of hypoglycemic emergency Reviewed insulin pump basics today with Patient. Explained pros and cons of insulin pumps. Showed pt various pumps, infusion sets, and cgms currently available. Reviewed need to wear pump 24/7 and need to change infusion set every 3 days. Also stressed importance of frequent BG checks, 4x daily minimum or use pump that is integrated with CGM.? TDD:30 units Patient demonstrated motivation for continued insulin pump education and understands the need to complete education prior to starting insulin pump for best outcome. Patient has interested in iLet Portions of this note were created using voice recognition software, please excuse any words or phrases that may have been misinterpreted. Patient Instructions: DIABETES PROBLEMS HOMECARE INSTRUCTIONS? for High Blood Sugar and When to Test for Ketones Hyperglycemia is the technical term for high blood glucose (blood sugar). High blood sugar happens when the body has too little insulin or when the body can't use insulin properly. What causes hyperglycemia? A number of things can cause hyperglycemia: * If you have type 1, you may not have given yourself enough insulin. ? If you have type 2, your body may have enough insulin, but it is not as effective as it should be. * You ate more than planned or exercised less than planned. * You have stress from an illness, such as a cold or flu. * You have other stress, such as family conflicts or school or dating problems. How to lower your blood sugar level. ? Take medications as directed by physician. ? Drink extra water or noncaffeinated, nonsugared drinks to prevented hydration. ? Exercise if you are not sick However, if your blood sugar is above 250 mg/dl, check your urine for ketones. I f you have ketones, do not exercise Exercising when ketones are present may make your blood sugar level go even higher. You'll need to work with your doctor to find the safest way for you to lower your blood sugar level. Regularly check blood sugar or urine for sugar and acetone during illness. Diabetic ketoacidosis (DKA) Is serious condition that can lead to diabetic coma (passing out for a long time) or even . When your cells don't get the glucose they need for energy, your body begins to burn fat for energy, which produces ketones. Ketones are chemicals that the body creates when it breaks down fat to use for energy. The body does this when it doesn?t have enough insulin to use glucose, the body?s normal source of energy. When ketones build up in the blood, they make it more acidic. They are a warning sign that your diabetes is out of control or that you are getting sick. Symptoms of Diabetic Ketoacidosis (DKA) ? DKA usually develops slowly. But when vomiting occurs, this life- threatening condition can develop in a few hours. Early symptoms include the following: ? Thirst or a very dry mouth ? Frequent urination ? High blood glucose (blood sugar) levels ? High levels of ketones in the urine ? Then, other symptoms appear: ? Constantly feeling tired ? Dry or flushed skin ? Nausea, vomiting, or abdominal pain ? (Vomiting can be caused by many illnesses, not just ketoacidosis. If vomiting continues for more than 2 hours, contact your health care provider.) ? Difficulty breathing ? Fruity odor on breath ? A hard time paying attention, or confusion When should you test for ketones? It is advisable to check for ketones under the following conditions when: Your blood glucose is higher than 250mg/dl. Feeling nauseated, throwing up, or have pains in your abdominal region. Have a cold or flu. Have general body fatigue. Feel thirsty or have a very dry mouth. Have flushed skin. Have a fruity breath or a hard time breathing. You feel perplexed or in fog. How to Test Urine for Ketones You can detect ketones with a simple urine test using a test strip, similar to a blood testing strip. Ask your health care provider when and how you should test for ketones. Many experts advise to check your urine for ketones when your blood glucose is more than 250 mg/dl. When you are ill (when you have a cold or the flu, for example), check for ketones every 4 to 6 hours. And check every 4 to 6 hours when your blood sugar is more than 250 mg/dl. Also, check for ketones when you have any symptoms of DKA. How to lower your blood sugar level. ? Take medications as directed by physician. ? Drink extra water or noncaffeinated, nonsugared drinks to prevented hydration. ? Exercise if you are not sick However, if your blood sugar is above 250 mg/dl, check your urine for ketones. I f you have ketones, do not exercise Exercising when ketones are present may make your blood sugar level go even higher. You'll need to work with your doctor to find the safest way for you to lower your blood sugar level. Regularly check blood sugar or urine for sugar and acetone during illness Coding Level of Care Code Est Pt Level 1 (00573) Diagnoses Diabetes mellitus type 1, uncontrolled E10.65
--- OUTSIDE RECORDS SUMMARY | 2025-02-21 18:41 | XMS_ITS | Clinical Summary ---
Author Organization [facility] Address [address] [place] [address] Care Team Providers Care Automatic Punch Press Operator Name Role Phone Unavailable Primary Care [...]
== END 2025-02-21 16:42 | disposition home or self-care (01) ==
LOC: HO.ENCR 16:14
PROVIDERS: Visit Provider Registered Nurse Diabetes Educator
DX: E10.65 Type 1 diabetes mellitus with hyperglycemia (principal)

== ENCOUNTER → 2025-02-21 16:13 | Outpatient (BNVA) | payer OTHER, SELFPAY | PROVIDERS: Visit Provider Registered Nurse Diabetes Educator | DX: E10.65 Type 1 diabetes mellitus with hyperglycemia (principal); Z79.4 Long term (current) use of insulin; Z46.81 Encounter for fitting and adjustment of insulin pump | CPT/HCPCS: 99211 ==

== ENCOUNTER 2025-03-07 14:23 | Outpatient (AMB) | payer OTHER, SELFPAY ==
--- NOTE | 2025-03-07 14:52 | MHC.AMDMED ---
Intake Vital Signs 03/07/25 14:52 Weight 143 lb 2 oz Intake Visit Reasons: 30 mins Hot Metal Charger Required: No Accompanied by: Self / Same As Patient Allergies No Known Allergies (No Known Allergies*) Allergy (Verified 02/03/25 14:34) HPI Comprehensive Diabetes Asmnt Most Recent Diabetes Results: Microalb/Creat Ratio, (<30) 8.5 ug/mg cr 02/07/25 Cholesterol, (<200) 223 mg/dL H 02/07/25 HDL Cholesterol, (>40) 42 mg/dL 02/07/25 Triglycerides, (<150) 297 mg/dL H 02/07/25 Creatinine, (0.5-1.4) 0.85 mg/dL 02/01/25 BUN, (9-16) 21 mg/dL H 02/01/25 Sodium, (135-145) 137 mmol/L 02/01/25 Potassium, (3.3-5.1) 4.3 mmol/L 02/01/25 Chloride, (96-108) 100 mmol/L 02/01/25 Carbon Dioxide, (22-29) 24 mmol/L 02/01/25 Calcium, (8.4-10.2) 10.1 mg/dL 02/01/25 AST, (5-37) 23 U/L 02/01/25 ALT, (0-40) 12 U/L 02/01/25 Total Protein, (6.5-8.0) 8.2 g/dL H 02/01/25 Albumin, (3.5-5.0) 4.6 g/dL 02/01/25 [facility] Medical History Suicidal ideation Anxiety Suicide attempt Nicotine dependence MDD (major depressive disorder), severe Cocaine use disorder Noncompliance Dental decay Hyperlipidemia LDL goal <100 Surgical History No history of previous surgery Family History Maternal Grandmother Diabetes, type I Social History Household Members: Family Household Members Other:: parents Housing: House Housing Other:: rents a room Do you presently have visiting nurse or other home services: No Alcohol intake: never Comment: 1:1 sitter for SI Patient Tobacco Use Status: Former Tobacco user (09/29/24) Tobacco use type: Cigarette Cigarettes Per Day: 5 e-Cigarette/Vaping Use: Currently Using Second Hand Smoke Exposure: Yes Substance Use Type: Marijuana service: No Current occupational status: employed Sexual orientation: Straight/Heterosexual Cognitive needs: No Hearing needs: No Vision needs: No Assessment & Plan Assessment & Plan (1) Diabetes mellitus type 1, uncontrolled: Comment: since age 10 Code(s): E10.65 - Type 1 diabetes mellitus with hyperglycemia Plan: Personal Continuous Glucose Monitor: Patients CGM information reviewed, Pt uses Truli with [place] Patient continues to have high percentage of hypoglycemia. At today's visit patient reported he had been taking Tresiba 24 units b.i.d., instead of once a day. He also brought Humalog sliding scale, but stated that he has been using scale as a correction as well as pre meal. Reviewed Tresiba and Humalog Instructed patient to take Tresiba 32 units only once a day as prescribed If he is using Humalog to correct hyperglycemia, reduce Humalog scale by 50% for correction dose. Wait at least 3 hours in between rapid acting insulin doses. Patient came to appointment with iLet insulin pump. Instructed patient we did not have time to do pump training since it was only 30 minute appointment but to schedule pump after visit Reminded patient that to check finger sticks if symptoms do not match sensor reading. Discussed lag time between finger stick and sensor data.? Patient able to insert sensor independently at home without issue.? Portions of this note were created using voice recognition software, please excuse any words or phrases that may have been misinterpreted. Coding Level of Care Code Est Pt Level 1 (44409) Diagnoses Diabetes mellitus type 1, uncontrolled E10.65
--- OUTSIDE RECORDS SUMMARY | 2025-03-07 20:47 | XMS_ITS | Clinical Summary ---
[facility] Organization [facility] Address [address] [place] [address] Care Team Providers Care Supervisor Liquefaction Name Role Phone Unavailable Primary Care Provider [...]
== END 2025-03-07 14:55 | disposition home or self-care (01) ==
LOC: HO.ENCR 14:24
PROVIDERS: Visit Provider Registered Nurse Diabetes Educator
DX: E10.65 Type 1 diabetes mellitus with hyperglycemia (principal)

== ENCOUNTER → 2025-03-07 14:23 | Outpatient (BNVA) | payer OTHER, SELFPAY | PROVIDERS: Visit Provider Registered Nurse Diabetes Educator | DX: E10.65 Type 1 diabetes mellitus with hyperglycemia (principal); Z79.4 Long term (current) use of insulin | CPT/HCPCS: 99211 ==